=== PATIENT | female | born 1945 | race Caucasian/White ===

== ENCOUNTER → 2017-11-23 11:05 | Outpatient (POV) | payer MEDICARE, BC, SELFPAY | PROVIDERS: Visit Provider Dentist | DX: Z00.00 Encounter for general adult medical examination without abnormal findings (principal) ==

== ENCOUNTER → 2017-12-07 11:57 | Outpatient (POV) | payer MEDICARE, BC, SELFPAY | PROVIDERS: Visit Provider Dentist | DX: Z00.00 Encounter for general adult medical examination without abnormal findings (principal) ==

== ENCOUNTER → 2019-01-10 06:57 | Outpatient (CLI) | payer MEDICARE, BC, SELFPAY ==
--- NOTE | 2019-01-10 07:00 | NM_ITS ---
History and Indications: Coronary artery disease bypass surgery hypertension, hyperlipidemia, family history chest pain and fatigue Procedure: Patient received a 0.4 mg of intravenous Lexiscan, resting heart rate was 62 bpm resting blood pressure 129/65, with Lexiscan maximum heart rate achieved was 83 bpm is less than 85% of the maximum predicted heart rate and a blood pressure was 117/61. With Lexiscan patient complained of malaise no chest pain Electrocardiogram: Resting electrocardiogram showed sinus rhythm possible lateral infarct age indeterminate, with Lexiscan there is less than 1.[address] segment depression noted from the baseline EKG. The EKG portion of the Lexiscan Myoview is nondiagnostic. Cardiac stress and resting SPECT images: Cardiac stress and resting SPECT images were obtained using technetium 99 Myoview 29.8 mCi stress and 10.4 mCi at rest. Gated SPECT further analysis of segmental wall motion and calculation of the ejection fraction also done. Cardiac stress and resting SPECT images show a fixed defect involving the posterobasal wall with area of myocardial scarring without significant homer-infarct ischemia. Computer derived ejection fraction is 56% with severe hypokinesis involving the inferior and posterobasal wall. Right ventricle is normal size and contractility. Conclusion: 1. The EKG portion of the Lexiscan Myoview is nondiagnostic. 2. Scintigraphic evidence of myocardial scarring involving the inferior and posterobasal wall without significant homer-infarct ischemia, computer derived ejection fraction is 56% with segmental wall motion abnormality described above, right ventricle is normal size and contractility. 3. Abnormal Lexiscan Myoview study.
--- NOTE | 2019-01-10 09:55 | HMH.ITSHM ---
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 []oxybutynin plaquenil colchicine cevimeline atorvastatin atenolol alendronate alprazolam
== END ==
PROVIDERS: PCP Internal Medicine Adolescent Medicine; Visit Provider Internal Medicine Adolescent Medicine
DX: I25.119 Atherosclerotic heart disease of native coronary artery with unspecified angina pectoris (principal)
CPT/HCPCS: 78452; 93017; A9502; J2785

== ENCOUNTER → 2019-07-01 10:55 | Outpatient (POV) | payer MEDICARE, BC, SELFPAY | PROVIDERS: PCP Internal Medicine Adolescent Medicine; Visit Provider Nurse Practitioner Family | DX: Z00.00 Encounter for general adult medical examination without abnormal findings (principal) ==

== ENCOUNTER 2020-01-04 15:49 | Inpatient (IN) ==
[2020-01-04 16:17] LABS: Microscopic, Urine URINE MICROSCOPIC (MICROSCOPIC)
[2020-01-04 16:20] LABS: Appearance,Urine CLOUDY (Clear); Blood, Urine 2+ (Negative); Color,Urine DK YELLOW (Yellow); Glucose,Urine (UA) TRACE (Negative); Ketones,Urine TRACE (Negative); Leukocyte Esterase,Urine 2+ (Negative); PH,Urine 5.5 (5.0-8.5); Protein,Urine 2+ (Negative); Specific Gravity, Urine >= 1.030 (1.005-1.030)
--- NOTE | 2020-01-04 16:26 | Emergency Department Note ---
ED Disposition Clinical Impression: Acute dehydration, Elevated LFTs, Hyperbilirubinemia Abdominal pain Qualifiers: Abdominal location: epigastric Qualified Code(s): R10.13 - Epigastric pain Pancreatitis Qualifiers: Chronicity: acute Pancreatitis type: unspecified pancreatitis type Acute pancreatitis complication: no infection or necrosis Qualified Code(s): K85.90 - Acute pancreatitis without necrosis or infection, unspecified Urinary tract infection Qualifiers: Urinary tract infection type: site unspecified Hematuria presence: without hematuria Qualified Code(s): N39.0 - Urinary tract infection, site not specified Disposition: Admitted as Observation Condition on Discharge: Fair Instructions: DI for Acute Abdomen Referrals: José Miguel Verde MD [Primary Care Provider] - Time of Disposition: 18:40 - Critical Care Critical Care Time: No Attestation: On 01/04/20, the high probability of a clinically significant, sudden or life threatening deterioration of the following system(s) required my full and direct attention, intervention and personal management. The time I documented below is in addition to time spent performing reported procedures but includes the following listed in this critical care notation. Medical Decision Making - Earl Inquiry Pt receiving controlled substance: No Vital Signs: 01/04/20 15:50 Temperature 99.5 F Temperature Source Oral Pulse Rate [Right] 82 Respiratory Rate 20 Blood Pressure [Right Arm] 126/78 Blood Pressure Mean [Right Arm] 94 02 Sat by Pulse Oximetry 96 - Lab Data Lab Results 01/04/20 16:00: WBC 16.8 H, RBC 4.71, Hgb 15.1, Hct 45.5, MCV 96.6, MCH 32.1 H, MCHC 33.2, RDW 14.1, Plt Count 157, MPV 8.4, Neut % (Auto) 89.4 H, Lymph % (Auto) 4.9 L, [place] % (Auto) 5.2, Eos % (Auto) 0.3, Baso % (Auto) 0.2, Neut # (Auto) 15.0 H, Lymph # (Auto) 0.8, [place] # (Auto) 0.9, Eos # (Auto) 0.1, Baso # (Auto) 0.0, Total Counted 100, Neutrophils % (Manual) 85 H, Lymphocytes % (Manual) 7 L, Monocytes % (Manual) 4, Metamyelocytes % 4.0 H, Platelet Estimate Normal, RBC Morphology Normal 01/04/20 16:00: Sodium 135 L, Potassium 3.9, Chloride 96 L, Carbon Dioxide 27, Anion Gap 15.9 H, BUN 21 H, Creatinine 1.20 H, Estimated Creat Clear 69, Estimated GFR 44 L, Est GFR ( Amer) 53 L, Glucose 105 H, Calcium 9.2, Total Bilirubin 2.6 H, AST 88 H, ALT 214 H, Alkaline Phosphatase 73, Total Prot ein 7.6, Albumin 4.5, Globulin 3.1, Albumin/Globulin Ratio 1.5, Amylase 237 H, Lipase 254 01/04/20 16:00: Urine Color Dk yellow, Urine Appearance Cloudy, Urine pH 5.5, Ur Specific [place] >= 1.030, Urine Protein 2+, Urine Glucose (UA) Trace, Urine Ke tones Trace, Urine Blood 2+, Urine Nitrate Positive, Urine Bilirubin Negative, Urine Urobilinogen 1.0, Ur Leukocyte Esterase 2+ A, Urine RBC 5-10, Urine WBC Tntc, Ur Squamous Epith Cells 50-100, Amorphous Sediment 2+, Urine Bacteria 3+ 01/04/20 16:00: Lactate 2.1 01/04/20 16:00: Influenza Type A Ag Negative, Influenza Type B Ag Negative 01/04/20 16:00: Troponin I < 0.01 01/04/20 16:00: PT 11.7, INR 1.13 H, APTT 28.7 01/04/20 16:00: NT-Pro-B Natriuret Pep 729 H Result diagrams: 01/04/20 16:00 01/04/20 16:00 Orders (Tests/Meds): ED MEDICATIONS Generic Name Dose Route Start Last Admin Trade Name Freq PRN Reason Stop Dose Admin Sodium Chloride 1,000 mls @ 999 mls/hr 01/04/20 16:15 01/04/20 16:20 Sod Chlor 0.9% 1000ml Bag IV 01/04/20 17:15 999 mls/hr .Q1H1M FANI Administration Levofloxacin/Dextrose 750 mg in 150 mls @ 100 mls/hr 01/04/20 17:30 01/04/20 17:32 Levofloxacin 750mg/150ml Premix IV 01/18/20 17:29 100 mls/hr Q24H FANI Administration Protocol Discontinued Medications Generic Name Dose Route Start Last Admin Trade Name Freq PRN Reason Stop Dose Admin Ioversol 75 ml 01/04/20 17:17 01/04/20 17:18 Rad-Optiray 350 100ml Vial IV 01/04/20 17:18 75 ml ONCE ONE Administration Protocol Ondansetron HCl 4 mg 01/04/20 16:11 01/04/20 16:20 Zofran 4mg/2ml Vial IV 01/04/20 16:12 4 mg ONCE ONE Administration Sodium Chloride 10 ml 01/04/20 17:17 01/04/20 17:18 Rad-Saline Flush 10ml Syringe IV 01/04/20 17:18 10 ml ONCE ONE Administration ORDERS Category Date Time Status Blood Culture Stat Micro 01/04/20 16:00 Received Urine Culture Stat Micro 01/04/20 16:00 Received EKG Request [ECG Request by /Frankie] Stat Y 01/04/20 16:31 Ordered - CT Data CT Scan: Abdomen Time Received: 18:[address] Reviewed: Yes: I have viewed the radiologist's interpretation Findings Narrative: CT ABDOMEN PELVIS W CON Patient Age:74Y CLINICAL INDICATION: abd pain. Upper abdominal pain with nausea and vomiting. No bowel movement 3 days. . Cholecystectomy. CABG. Back and hip surgery. 74-year-old female COMPARISON: CXR1VP XR chest portable from 01/06/2019 TECHNIQUE: 75 cc Optiray 350 IV contrast utilized Axial images obtained with sagittal and coronal reformats. All CT scans at the facility use one or more dose reduction, viz: automated exposure control, ma/kV adjustment per patient size (including targeted exams where dose is matched to indication, i.e. head), or iterative reconstruction technique. FINDINGS: Lower thorax: Lungs clear, no acute appearing findings. Scant pleural thickening posterior aspect posterior sulcus on left more so than right. Prominent multivessel atherosclerotic coronary artery calcification noted. Median sternotomy with CABG ABDOMEN: Gallbladder: Surgically removed. Common duct prominent and moderately dilated measure up to 12 mm at the hilum the liver then tapering to 5-6 mm as it extends through the head of the pancreas. This pattern most likely reflects prior cholecystectomy changes. Also associated mild central intrahepatic biliary ductal dilatation. These findings-warrants correlation serum bilirubin Liver: Otherwise liver reveals no significant appearing masses but... Only note and suspect subtle less than 1.5 cm very subtle slight lower area anterior left lobe most likely reflecting mild focal fatty change left lobe just adjacent to falciform ligament , Pancreas: Hazy appearance peripancreatic fat compatible with acute pancreatitis-requires correlation amylase and lipase. No pancreatic ductal dilatation a focal pancreatic mass or lesion. No focal fluid collections or pseudocyst. No significant complicating features at pancreas at this point. . However would note minimal wispy edematous changes throughout rmesenteric-Most evident at root of mesentery No enlarged nodes: No mesenteric or retroperitoneal nor pelvic nor inguinal adenopathy No free air aorta normal caliber.. Spleen:slightly enlarged. Spleen measures 13.5 cm AP 12.4cm length 7 cm transverse Also note upper normal caliber portal vein with generous splenic vein-warrants correlation with LFTs Adrenals unremarkable the Kidneys/ureters: unremarkable Pelvis: moderate free fluid cul-de-sac and extending to right and left lower pelvis Reproductive: Postmenopausal uterus with 3 cm dense calcified fibroid along its anterior aspect. No adnexal masses otherwise but there is some calcified nodes, generous phleboliths lower pelvis.. Suggestion slight descent floor of pelvis. Difficult to exclude a Bartholin's duct cyst but streak artifact from the hip prosthesis slightly degrades images here and lower pelvis Bladder: Nondistended of thus difficult 2 evaluate. But no calculi at the urinary bladder, no obvious masses nor wall thickening.. GI TRACT no bowel dilatation or obstruction. Large bowel: Upper normal wall thickness at the rectum otherwise no significant findings. Only mild gaseous distension at transverse colon could reflect a localized ileus related to pancreatitis. Mobile redundant cecum. Normal appearing terminal ileum and appendix. Small bowel unremarkable Stomach: Upper normal wall thickness at the stomach question possible mild gastritis overlying the inflamed pancreas Bones: No acute findings but no lesion. degenerative changes lumbar spine. Levoscoliosis but disc space narrowing most notable to the right at L3/4. Also slight leftward shift of L3 on L4 L4/5 with laminectomy and posterior lumbar fusion.. Prominent facet throughout lower L-spine with prominent facet hypertrophy L3/4, L4/5 healing spinal stenosis at now at these levels. Right a hip prosthesis. Acetabular and metallic femoral head component yield streak artifact IMPRESSION: Findings compatible with Acute Pancreatitis Peripancreatic inflammation, with mild enlarged, pancreas. No peripancreatic fluid collections Associated mild edema extending mesentery most evident at root of mesentery. Also moderate free fluid at the pelvic basin Moderate dilatation the Common Duct with mild intrahepatic biliary ductal dilatation.-Most likely secondary tocholecystectomy but warrants correlation with serum bilirubin Mild splenic enlargement . No urinary tract calculi or obstruction Degenerative changes lumbar spine with posterior fusion L4/ L5. And spinal stenosis L3/4-L2/3 Also note right hip prosthesis Dictated by: Ki Malone MD 01/04/2020 18:09 Electronically signed by Ki Malone MD in [place] 01/04/2020 18:09 - ECG Data Tracing #1 EKG shows normal sinus rhythm with a heart rate of 70 bpm, normal P waves, left atrial enlargement, normal MT interval, normal narrow complex QRS pattern, normal axis, T wave inversion in lead II, III, aVF, V2 V3 V4 V5 V6. Nonspecific ST-T changes. - Physician Consults Physician Consulted: Dr. Vergara Time: 18:35 Reason -: Admission Comment/Response: Discussed with Dr. Vergara, regarding the patient and planned to get the patient admitted to the floor for IV fluids and IV antibiotics along with further management as needed. Additional Consult: Discussed with Dr. Vergara, regarding the patient and plan to get the patient - Reevaluation(s) Time: 18:16 Reevaluation #1: Patient has been stable throughout the course of stay in the ER. Discussed the lab findings with the patient. Discussed the CT scan finding with the patient. Plan to discuss the case with the hospitalist for possible admission and further management. Abdominal Pain HPI - General Chief Complaint: Abdominal Pain Stated Complaint: Abd pressure, bloating Time Seen by Provider: 01/04/20 16:23 Mode of Arrival: Ambulatory Limitations: No Limitations Description of Symptoms (Recalled from ER Triage Doc. by RN): Pt states since she has been vomiting and having a burning like feeling in her lower abdomen. Pt states she has been chilling and very weak. - History of Present Illness HPI narrative: 74-year-old female presents to the emergency department with chief complaint of having bilateral upper flank and rib subcostal area pain for the last 2 to 3 days. She states she has not had a bowel movement for last 3 days. She states she has been feeling nauseated for the same duration. She vomited about 2-3 times. He has history of bilious reflux. Has not been eating well for the last 3 days. Denies having any fever or chills. MD complaint: abdominal pain (Epigastric area pain), flank pain (Bilateral) Onset (ago): day(s) (3 days) Consistency: constant Location: epigastric Severity: moderate Severity scale (1-10): 7 Quality: sharp Radiation: none Migration to: no migration Relieving factors: nothing Exacerbating factors: nothing - Related Data Home Medications Medication Instructions Recorded Confirmed ALPRAZolam [Alprazolam 0.25mg 1 tab PO BID 01/06/19 08/30/19 Tab] Alendronate Sodium 1 tab PO WEEKLY 01/06/19 08/30/19 Atorvastatin Calcium [Atorvastatin 1 tab PO HS 01/06/19 08/30/19 10mg Tab] Cevimeline HCl 1 tab PO TID 01/06/19 08/30/19 Colchicine 1 tab PO DAILY 01/06/19 08/30/19 Hydroxychloroquine Sulfate 1 tab PO DAILY 01/06/19 08/30/19 [Plaquenil 200mg tablet] Oxybutynin Chloride [Oxybutynin 1 tab PO DAILY 01/06/19 08/30/19 Chloride ER] atenoloL [Atenolol 50mg Tab] 1 tab PO DAILY 01/06/19 08/30/19 Furosemide [Lasix 40mg tab] 40 mg PO DAILY PRN 08/30/19 08/30/19 Nitroglycerin 0.4 mg SL NEEDED PRN 08/30/19 08/30/19 calcium polycarbophiL [FiberCon 625 mg PO DAILY 08/30/19 08/30/19 625mg tablet] Allergies Allergy/AdvReac Type Severity Reaction Status Date / Time Penicillins Allergy Intermediate Rash Verified 08/30/19 10:35 ibuprofen [From Motrin] Allergy Mild Verified 08/30/19 10:35 [facility] History - Hepatitis A Screen Drug use history?: No High risk sexual behaviors?: No History of sexually transmitted infection?: No Currently employed?: No Childcare worker?: No Do you have indoor plumbing?: Yes Do you have electricity?: Yes Attestation statement:: This patient has been screened for Hepatitis A risk factors. I have reviewed the patient's past medical history: Yes Medical History: Reports:: Anxiety, Coronary Artery Disease, Hyperlipidemia, Hypertension Denies:: Cancer, Diabetes Mellitus Type 1, Diabetes Mellitus Type 2, Internal Pacemaker, Seizures Other Medical History: Reports: Arthritis, Other (gout, colitis, dry mouth syndrome) Laterality Cases: Bilateral: Carpal Tunnel Release, Cataract Other Surgeries: Yes: Cardiac Surgery, Cholecystectomy, Other (hip replacement, three leg surgeries, back surgery, wrist surgery). No: Pacemaker Amputation: No Fractures: Yes - Social History Alcohol Intake: never Substance Use Type: denies use Occupational Status: retired - Psychiatric History Pschychiatric History:: Reports:: Anxiety Family Hx:: No significant family history ROS Obtained: Yes All systems reviewed & no additional complaints Physical Exam - General General appearance: alert, in no apparent distress, obese - Head Head exam: atraumatic, normocephalic, normal inspection - Eye Eye exam: Present: normal appearance, PERRL, EOMI - ENT ENT exam: Present: normal exam, mucous membranes moist, normal external ear exam, other (Dry oral mucosa) - Neck Neck exam: Present: normal inspection, full ROM, trachea midline. Absent: meningismus, lymphadenopathy - Chest Chest inspection: Present: normal inspection, symmetric chest wall rise. Absent: tenderness - Respiratory Respiratory exam: Present: normal lung sounds bilaterally. Absent: respiratory distress - Cardiovascular Cardiovascular exam: Present: regular rate, normal rhythm. Absent: JVD - Abdominal Exam Abdominal exam: Present: soft, tenderness (Tender on palpation of the suprapubic area and mild degree tenderness on the epigastric area. Also complains of mild tenderness on the right upper quadrant.), normal bowel sounds, other (No rigidity or guarding.). Absent: distention, guarding Abdominal tenderness: Present: RUQ, epigastrium, suprapubic, mild - Extremities Exam Extremities exam: Present: normal inspection, full ROM, normal capillary refill. Absent: calf tenderness - Back Exam Back exam: Present: normal inspection, full ROM. Absent: tenderness, CVA tenderness (R), CVA tenderness (L) - Neurological Exam Neurological exam: Present: alert, oriented X3, CN II-XII intact - Psychiatric Psychiatric exam: Present: normal affect, normal mood - Skin Skin exam: Present: warm, dry, intact, normal color
[2020-01-04 16:30] LABS: Bilirubin,Urine Negative (Negative)
[2020-01-04 16:33] LABS: Albumin Level 4.5 g/dl (3.5-5.0); Albumin/Globulin Ratio 1.5 (1.1-1.8); Anion Gap 15.9 mEq/L (5-15); Basophils % 0.2 % (0.1-2.0); Bilirubin,Total 2.6 mg/dl (0.2-1.3); Calcium 9.2 mg/dl (8.4-10.2); Eosinophils # 0.1 K/mm3 (0.0-0.4); Eosinophils % 0.3 % (0.1-12.0); Globulin 3.1 g/dL (1.3-3.2); Hematocrit 45.5 % (37.0-47.0); Hemoglobin 15.1 g/dL (12.2-16.2); Lymphocytes # 0.8 K/mm3 (0.7-4.5); Lymphocytes % 4.9 % (10-50); Mean Corpuscular HGB Conc 33.2 g/dL (31.8-35.4); Mean Corpuscular Volume 96.6 fl (81-99); Mean Platelet Volume 8.4 fl (7.4-10.4); Monocytes # 0.9 K/mm3 (0.1-1.0); Monocytes % 5.2 % (1.7-9.3); Neutrophils % 89.4 % (37.0-80.0); Platelet Count 157 K/mm3 (142-424); Red Blood Count 4.71 M/mm3 (4.20-5.40); Red Cell Distribution Width 14.1 % (11.5-17.5); Total Protein,Serum 7.6 g/dl (6.3-8.2); White Blood Count 16.8 K/mm3 (4.8-10.8)
[2020-01-04 16:36] LABS: Amorphous Sediment,Urine 2+ /lpf; Bacteria,Urine 3+ /lpf; Squamous Epithelial Cell,Urine 50-100 #/hpf (0-5); WBC,Urine TNTC #/hpf (0-3)
[2020-01-04 16:43] LABS: Lymphocytes % 7 % (10-50); Monocytes % 4 % (2-9); Neutrophils % 85 % (42-76); RBC Morphology Normal; Total Cells Counted 100
[2020-01-04 17:21] LABS: Activated Partial Thrombo Time 28.7 seconds (23.6-34.0); INR 1.13 (0.9-1.1); Prothrombin Time 11.7 seconds (9.4-11.8)
[2020-01-05 07:22] LABS: Basophils % 0.1 % (0.1-2.0); Eosinophils # 0.1 K/mm3 (0.0-0.4); Eosinophils % 0.5 % (0.1-12.0); Hematocrit 36.3 % (37.0-47.0); Lymphocytes # 0.5 K/mm3 (0.7-4.5); Lymphocytes % 4.6 % (10-50); Mean Corpuscular HGB Conc 33.8 g/dL (31.8-35.4); Mean Corpuscular Volume 95.1 fl (81-99); Mean Platelet Volume 9.5 fl (7.4-10.4); Monocytes # 0.5 K/mm3 (0.1-1.0); Monocytes % 4.6 % (1.7-9.3); Neutrophils # 9.1 K/mm3 (1.8-7.8); Neutrophils % 90.2 % (37.0-80.0); Platelet Count 94 K/mm3 (142-424); Red Blood Count 3.82 M/mm3 (4.20-5.40); Red Cell Distribution Width 13.7 % (11.5-17.5); White Blood Count 10.1 K/mm3 (4.8-10.8)
[2020-01-05 07:24] LABS: Hemoglobin 12.3 g/dL (12.2-16.2)
[2020-01-05 07:52] LABS: Anion Gap 9.6 mEq/L (5-15)
[2020-01-05 08:06] LABS: Lymphocytes % 7 % (10-50); Monocytes % 4 % (2-9); Neutrophils % 85 % (42-76); RBC Morphology Normal; Total Cells Counted 100
[2020-01-05 08:22] LABS: Albumin Level 3.3 g/dl (3.5-5.0); Bilirubin,Indirect 1.3 mg/dL (0.0-0.9); Bilirubin,Total 1.3 mg/dl (0.2-1.3); Bilirubin,Unconjugated 1.4 mg/dL (0.0-1.1); Total Protein,Serum 5.8 g/dl (6.3-8.2)
--- NOTE | 2020-01-05 08:26 | Pharmacy Consult Notes ---
[facility] VTE Monitoring - Patient Demographics Admission date: 01/04/20 Report Date: 01/05/20 Time: 08:25 Allergies/Adverse Reactions: Patient Allergies Penicillins Allergy (Intermediate, Verified 08/30/19 10:35) Rash ibuprofen [From Motrin] Allergy (Mild, Verified 08/30/19 10:35) Height: 1.63 m Weight: 98.089 kg Patient Problems: Current Active Problems Abdominal pain (Acute) Pancreatitis (Acute) Acute dehydration (Acute) Elevated LFTs (Acute) Hyperbilirubinemia (Acute) Urinary tract infection (Acute) - VTE Risk Labs: VTE Related Lab Results Hgb 12.3 g/dL (12.2-16.2) D 01/05/20 07:02 Hct 36.3 % (37.0-47.0) L 01/05/20 07:02 Plt Count 94 K/mm3 (142-424) L D 01/05/20 07:02 PT 11.7 seconds (9.4-11.8) 01/04/20 16:00 INR 1.13 (0.9-1.1) H 01/04/20 16:00 APTT 28.7 seconds (23.6-34.0) 01/04/20 16:00 BUN 14 mg/dl (7-17) D 01/05/20 07:02 Creatinine 1.00 mg/dl (0.52-1.04) 01/05/20 07:02 Estimated Creat Clear 78 mL/min (50-200) 01/05/20 07:02 VTE Risk Level: Moderate Risk - Prophylaxis VTE Prophylaxis Ordered?: Yes Types of VTE Prophylaxis: TEDS Knee High Location of Applied Device: Bilateral Lower Extremeties - VTE Diagnosis Confirmed Treatment or plan recommended: Continue Current Treatment
--- NOTE | 2020-01-05 08:51 | History & Physical Report ---
*Admission Date: 01/04/20 *Chief complaint: abd pain and nausea *History of present illness: 74-year-old white female with history of cholecystectomy in the remote past, bile acid reflux gastritis and GERD who presented to the emergency department with a 2-day history of nausea and vomiting that started without any kind of inciting food intake. She became nauseated a couple of days ago and abdominal pain has insidiously worsened until she presented to the ER yesterday evening. Found to have elevated white count, elevated bilirubin, elevated amylase and lipase, CT scan showed evidence of pancreatitis and she was admitted to the hospital for further diagnostic testing as well as IV antibiotics. [facility] History I have reviewed the patient's past medical history: Yes Medical History: Reports:: Anxiety, Coronary Artery Disease, Hyperlipidemia, Hypertension Denies:: Cancer, Diabetes Mellitus Type 1, Diabetes Mellitus Type 2, Internal Pacemaker, MRSA, Seizures *Have you ever received a pneumonia vaccine?: Yes *Have you received a flu vaccine this season?: No Other Medical History: Reports: Anemia, Arthritis, Other (gout, colitis, dry mouth syndrome) Comment:: Recurrent colitis, bile acid reflux gastritis Laterality Cases: Right: Total Hip Replacement, Bilateral: Carpal Tunnel Release, Cataract Other Surgeries: Yes: Cardiac Catheterization, Cardiac Surgery, Cholecystectomy, Other (back, leg). No: Pacemaker Amputation: No Fractures: Yes - *Social History Smoking Status: Never smoker Alcohol Intake: never Substance Use Type: denies use *Occupational Status:: retired *Travel in the last 8 weeks: None - Psychiatric History Pschychiatric History:: Reports:: Anxiety Family Hx:: Anemia, Cancer, Coronary Artery Disease, Diabetes, Heart Attack, Hyperlipidemia, Hypertension, Tuberculosis Review of Systems - Review of Systems Review of systems:: pertinent systems reviewed and negative unless documented below Patient denies cardiac or pulmonary or skin symptoms. Denies diarrhea, other than upper GI symptoms above 10 point review of systems negative Meds Home Medications Medication Instructions Recorded Confirmed Type ALPRAZolam [Alprazolam 0.25mg 1 tab PO BID 01/06/19 01/04/20 History Tab] Alendronate Sodium 1 tab PO WEEKLY 01/06/19 01/04/20 History Atorvastatin Calcium [Atorvastatin 1 tab PO HS 01/06/19 01/04/20 History 10mg Tab] Cevimeline HCl 1 tab PO TID 01/06/19 01/04/20 History Colchicine 1 tab PO DAILY 01/06/19 01/04/20 History Hydroxychloroquine Sulfate 1 tab PO DAILY 01/06/19 01/04/20 History [Plaquenil 200mg tablet] Oxybutynin Chloride [Oxybutynin 1 tab PO DAILY 01/06/19 01/04/20 History Chloride ER] Nitroglycerin 0.4 mg SL NEEDED PRN 08/30/19 01/04/20 History calcium polycarbophiL [FiberCon 625 mg PO DAILY 08/30/19 01/04/20 History 625mg tablet] Aspirin [Aspir 81] 81 mg PO DAILY 01/04/20 01/04/20 History Colestipol HCl 1 tab PO BID 01/04/20 01/04/20 History Famotidine [Acid Automated Process Operator] 20 mg PO HS 01/04/20 01/04/20 History Furosemide [Lasix 20mg tab] 20 mg PO DAILY 01/04/20 01/04/20 History Lipase/Protease/Amylase [Creon Dr 1 each PO AC 01/04/20 01/04/20 History 36,000 Units Capsule] Tizanidine HCl 4 mg PO NEEDED PRN 01/04/20 01/04/20 History atenoloL [Atenolol 50mg Tab] 50 mg PO DAILY 01/04/20 01/04/20 History cycloSPORINE [Restasis] 1 each OP DAILY 01/04/20 01/04/20 History Allergies Allergy/AdvReac Type Severity Reaction Status Date / Time Penicillins Allergy Intermediate Rash Verified 08/30/19 10:35 ibuprofen [From Motrin] Allergy Mild Verified 08/30/19 10:35 Exam Vital signs and Labs for Last 24 Hours: Temp Pulse Resp BP Pulse Ox 98.7 F 78 16 109/47 L 94 L 01/05/20 07:37 01/05/20 07:37 01/05/20 07:37 01/05/20 07:37 01/05/20 08:00 Laboratory Results - last 24 hr 01/04/20 16:00: WBC 16.8 H, RBC 4.71, Hgb 15.1, Hct 45.5, MCV 96.6, MCH 32.1 H, MCHC 33.2, RDW 14.1, Plt Count 157, MPV 8.4, Neut % (Auto) 89.4 H, Lymph % (Auto) 4.9 L, [place] % (Auto) 5.2, Eos % (Auto) 0.3, Baso % (Auto) 0.2, Neut # (Auto) 15.0 H, Lymph # (Auto) 0.8, [place] # (Auto) 0.9, Eos # (Auto) 0.1, Baso # (Auto) 0.0, Total Counted 100, Neutrophils % (Manual) 85 H, Lymphocytes % (Manual) 7 L, Monocytes % (Manual) 4, Metamyelocytes % 4.0 H, Platelet Estimate Normal, RBC Morphology Normal 01/04/20 16:00: Sodium 135 L, Potassium 3.9, Chloride 96 L, Carbon Dioxide 27, Anion Gap 15.9 H, BUN 21 H, Creatinine 1.20 H, Estimated Creat Clear 69, Estimated GFR 44 L, Est GFR ( Amer) 53 L, Glucose 105 H, Calcium 9.2, Total Bilirubin 2.6 H, AST 88 H, ALT 214 H, Alkaline Phosphatase 73, Total Protein 7.6, Albumin 4.5, Globulin 3.1, Albumin/Globulin Ratio 1.5, Amylase 237 H, Lipase 254 01/04/20 16:00: Urine Color Dk yellow, Urine Appearance Cloudy, Urine pH 5.5, Ur Specific [place] >= 1.030, Urine Protein 2+, Urine Glucose (UA) Trace, Urine Ketones Trace, Urine Blood 2+, Urine Nitrate Positive, Urine Bilirubin Negative, Urine Urobilinogen 1.0, Ur Leukocyte Esterase 2+ A, Urine RBC 5-10, Urine WBC Tntc, Ur Squamous Epith Cells 50-100, Amorphous Sediment 2+, Urine Bacteria 3+ 01/04/20 16:00: Lactate 2.1 01/04/20 16:00: Influenza Type A Ag Negative, Influenza Type B Ag Negative 01/04/20 16:00: Troponin I < 0.01 01/04/20 16:00: PT 11.7, INR 1.13 H, APTT 28.7 01/04/20 16:00: NT-Pro-B Natriuret Pep 729 H 01/04/20 20:35: Lactate 1.5 01/04/20 21:11: POC Glucose 103 01/05/20 05:50: POC Glucose 110 01/05/20 07:02: WBC 10.1 D, RBC 3.82 L, Hgb 12.3 D, Hct 36.3 L, MCV 95.1, MCH 32.1 H, MCHC 33.8, RDW 13.7, Plt Count 94 L D, MPV 9.5, Neut % (Auto) 90.2 H, Lymph % (Auto) 4.6 L, [place] % (Auto) 4.6, Eos % (Auto) 0.5, Baso % (Auto) 0.1, Neut # (Auto) 9.1 H, Lymph # (Auto) 0.5 L, [place] # (Auto) 0.5, Eos # (Auto) 0.1, Baso # (Auto) 0.0, Total Counted 100, Neutrophils % (Manual) 85 H, Band Neutrophils % 1.0, Lymphocytes % (Manual) 7 L, Monocytes % (Manual) 4, Metamyelocytes % 3.0 H, Platelet Estimate Moderate decrease, RBC Morphology Normal 01/05/20 07:02: Sodium 135 L, Potassium 3.6, Chloride 101, Carbon Dioxide 28, Anion Gap 9.6, BUN 14 D, Creatinine 1.00, Estimated Creat Clear 78, Estimated GFR 54 L, Est GFR ( Amer) 66 D, Glucose 123 H, Calcium 8.0 L D 01/05/20 07:02: Total Bilirubin 1.3, Direct Bilirubin 0.0, Conjugated Bilirubin 0.0, Indirect Bilirubin 1.3 H, Unconjugated Bilirubin 1.4 H, AST 51 H D, ALT 119 H D, Alkaline Phosphatase 54, Total Protein 5.8 L, Albumin 3.3 L D I & O for Last 24 hours: Intake & Output 01/02/20 01/03/20 01/04/20 01/05/20 11:59 11:59 11:59 11:59 Intake Total 987 / 987 Output Total 900 / 900 Balance 87 / 87 Weight 216 lb 3.987 oz Microbiology Reports for the Last 24 Hours: Microbiology 01/04/20 16:00 Urine,Clean Catch Urine Culture - Preliminary Gram Negative Rods - *Routine HEENT Exam Head: Present: normocephalic Eye: Present: EOMI, PERRL ENT: Present: mucous membranes moist - *Routine Neck Exam Present: supple. Absent: lymphadenopathy - *Routine Respiratory Exam Present: CTA bilaterally - *Routine Cardiovascular Exam Present: RRR - *Routine Abdominal Exam Present: soft, normoactive bowel sounds, tenderness. Absent: guarding, Hernandez Hurtado's sign, Michael's sign - *Routine Extremities Exam Absent: cyanosis, clubbing, edema - *Routine Skin Exam Present: warm. Absent: rash - *Routine Neurological Exam Present: alert, oriented X3 - Detailed Eye Exam Eyelids: Left normal inspection Assessment and Plan (1) Elevated LFTs Current visit: Yes Status: Acute Category: Medical Code(s): R94.5 - Abnormal results of liver function studies (2) Hyperbilirubinemia Current visit: Yes Status: Acute Category: Medical Code(s): E80.6 - Other disorders of bilirubin metabolism (3) Pancreatitis Current visit: Yes Status: Acute Qualifiers: Chronicity: acute Pancreatitis type: unspecified pancreatitis type Acute pancreatitis complication: no infection or necrosis Qualified Code(s): K85.90 - Acute pancreatitis without necrosis or infection, unspecified Category: Medical Code(s): K85.90 - Acute pancreatitis without necrosis or infection, unspecified (4) Urinary tract infection Current visit: Yes Status: Acute Qualifiers: Urinary tract infection type: site unspecified Hematuria presence: without hematuria Qualified Code(s): N39.0 - Urinary tract infection, site not specified Category: Medical Code(s): N39.0 - Urinary tract infection, site not specified - Assessment and plan all Dx Assessment and Plan for all problems:: Agree with admissions for above-noted medical problems. White count is improved overnight and bilirubin has improved. If these would worsen would consider broadening antibiotic coverage for cholangitis coverage but her penicillin allergy makes this somewhat problematic. Clear liquids today. GI consultation tomorrow with ultrasonography. Patient does not drink alcohol and etiology of pancreatitis is somewhat vague, check lipid levels for triglycerides and consider drug-induced pancreatitis.
--- NOTE | 2020-01-05 09:07 | Electrocardiograph Report ---
APPROVED REPORT Exam: Resting ECG HR:70 bpm ECG Measurements Heart Rate 70 AXES OK 144 P 44 QRSd 92 QRS 51 QT 386 T66 QTc 416 <Conclusion> Normal sinus rhythm Possible Left atrial enlargement Inferior-posterior infarct, age undetermined ST & T wave abnormality, consider lateral ischemia Abnormal ECG Electronically signed by : José Miguel Verde, 01/05/2020 09:06:25
[2020-01-05 09:16] LABS: Chol/HDL Ratio 2.4 (1-3.5)
[2020-01-06 07:26] LABS: Basophils % 0.2 % (0.1-2.0); Eosinophils # 0.1 K/mm3 (0.0-0.4); Eosinophils % 1.2 % (0.1-12.0); Hematocrit 34.2 % (37.0-47.0); Hemoglobin 11.5 g/dL (12.2-16.2); Lymphocytes # 0.4 K/mm3 (0.7-4.5); Lymphocytes % 4.8 % (10-50); Mean Corpuscular HGB Conc 33.6 g/dL (31.8-35.4); Mean Corpuscular Volume 96.4 fl (81-99); Mean Platelet Volume 9.1 fl (7.4-10.4); Monocytes # 0.5 K/mm3 (0.1-1.0); Monocytes % 5.5 % (1.7-9.3); Neutrophils # 7.6 K/mm3 (1.8-7.8); Neutrophils % 88.3 % (37.0-80.0); Platelet Count 101 K/mm3 (142-424); Red Blood Count 3.55 M/mm3 (4.20-5.40); Red Cell Distribution Width 13.7 % (11.5-17.5); White Blood Count 8.6 K/mm3 (4.8-10.8)
[2020-01-06 07:34] LABS: Albumin/Globulin Ratio 1.2 (1.1-1.8); Anion Gap 9.4 mEq/L (5-15); Calcium 7.7 mg/dl (8.4-10.2); Globulin 2.5 g/dL (1.3-3.2); Total Protein,Serum 5.5 g/dl (6.3-8.2)
--- NOTE | 2020-01-06 08:39 | Progress Note ---
Internal Medicine - PN: Subj *Date: 01/06/20 *Time: 08:37 Interval history: Patient reports that she feels somewhat better, had some left upper quadrant and left flank pain through the night but slept well. Exam Vital signs and Labs for Last 24 Hours: Temp Pulse Resp BP Pulse Ox 98.0 F 64 16 115/52 L 97 01/06/20 04:00 01/06/20 04:00 01/06/20 04:00 01/06/20 04:00 01/06/20 04:00 Laboratory Results - last 24 hr 01/05/20 07:02: Triglycerides 73, Cholesterol 100 L, LDL Cholesterol Direct 48.90 L, VLDL Cholesterol 15, HDL Cholesterol 41, Cholesterol/HDL Ratio 2.4 01/05/20 10:51: POC Glucose 136 H 01/05/20 16:27: POC Glucose 132 H 01/05/20 20:14: POC Glucose 117 H 01/06/20 06:18: POC Glucose 131 H 01/06/20 07:08: WBC 8.6, RBC 3.55 L, Hgb 11.5 L, Hct 34.2 L, MCV 96.4, MCH 32.4 H, MCHC 33.6, RDW 13.7, Plt Count 101 L, MPV 9.1, Neut % (Auto) 88.3 H, Lymph % (Auto) 4.8 L, [place] % (Auto) 5.5, Eos % (Auto) 1.2, Baso % (Auto) 0.2, Neut # (Auto) 7.6, Lymph # (Auto) 0.4 L, [place] # (Auto) 0.5, Eos # (Auto) 0.1, Baso # (Auto) 0.0 01/06/20 07:08: Sodium 134 L, Potassium 3.4 L, Chloride 102, Carbon Dioxide 26, Anion Gap 9.4, BUN 9 D, Creatinine 0.90, Estimated Creat Clear 78, Estimated GFR 61, Est GFR ( Amer) 74, Glucose 125 H, Calcium 7.7 L, Total Bilirubin 1.0, AST 33 D, ALT 76 D, Alkaline Phosphatase 50, Total Protein 5.5 L, Albumin 3.0 L, Globulin 2.5, Albumin/Globulin Ratio 1.2 I & O for Last 24 hours: Intake & Output 0201/04/20 01/05/20 01/06/20 11:59 11:59 11:59 11:59 Intake Total 987 / 987 4648 / 4648 Output Total 900 / 900 550 / 550 Balance / 4098 / 4098 Weight 216 lb 3.987 oz 216 lb 4.023 oz Microbiology Reports for the Last 24 Hours: Microbiology 01/04/20 16:00 Urine,Clean Catch Urine Culture - Final Klebsiella pneumoniae Narrative: Patient is pleasant, talkative, appears somewhat weak. Oropharynx clear. No JVD. Lungs are clear, heart rate regular without murmurs. Abdomen soft, some tenderness in the left upper quadrant but no rebound or guarding, no periumbilical or flank bruising. No distal edema or clubbing. Neurologic exam is nonfocal. Assessment and Plan (1) Elevated LFTs Current visit: Yes Status: Acute Category: Medical Code(s): R94.5 - Abnormal results of liver function studies (2) Hyperbilirubinemia Current visit: Yes Status: Acute Category: Medical Code(s): E80.6 - Other disorders of bilirubin metabolism (3) Pancreatitis Current visit: Yes Status: Acute Qualifiers: Chronicity: acute Pancreatitis type: unspecified pancreatitis type Acute pancreatitis complication: no infection or necrosis Qualified Code(s): K85.90 - Acute pancreatitis without necrosis or infection, unspecified Category: Medical Code(s): K85.90 - Acute pancreatitis without necrosis or infection, unspecified (4) Urinary tract infection Current visit: Yes Status: Acute Qualifiers: Urinary tract infection type: site unspecified Hematuria presence: without hematuria Qualified Code(s): N39.0 - Urinary tract infection, site not specified Category: Medical Code(s): N39.0 - Urinary tract infection, site not specified UTI secondary to Klebsiella, levofloxacin is appropriate treatment. This will continue. - Assessment and plan all Dx Assessment and Plan for all problems:: Patient appears to be improving from her pancreatitis episode. Please see notes and H&P regarding this issue. Lipid profile was unremarkable. Dr. Perez consultation today. Advance diet if tolerated after consultation.
[2020-01-06 10:14] LABS: Lymphocytes % 3 % (10-50); Monocytes % 5 % (2-9); Neutrophils % 92 % (42-76); RBC Morphology Normal; Total Cells Counted 100
--- NOTE | 2020-01-06 15:44 | Procedure Note ---
[facility] Procedure Note Procedure Note:: ERCP procedure Report: Endoscopic retrograde cholangiopancreatography with biliary sphincterotomy and balloon extraction Endoscopist: Mario Perez II, MD Referring Physician: José Miguel Verde M.D. Date of Procedure: January 06, 2020 Equipment: Olympus 180 side viewing endoscope duodenoscope Sedation: MAC sedation Indication: Mrs. Hector is a 74-year-old female who was having some noncardiac chest pain that radiated into the shoulder blades last fall and she was admitted to [facility]. She had cardiac testing. The patient had an EGD with me on August 30, 2019. At that time she had moderate chronic atrophic gastritis as well as some esophageal dysmotility. She had bile reflux with some reactive gastropathy of the antrum. The patient had been seen for follow-up in November 2019 in my office. She was still having some esophageal chest pain but overall she was much improved. The patient did have an ERCP in September 2006 for sphincter of Oddi dysfunction. She has had prior cholecystectomy more than a decade ago. The patient presented with nausea, vomiting and abdominal pain. Her lab work showed elevated liver and pancreatic chemistries with an ALT level of 214 and a total bilirubin level of 2.6. The patient's amylase was 237 with a normal lipase of 254. The patient did undergo CT scan of the abdomen and pelvis and this did show findings compatible with acute pancreatitis. There was also moderate dilation of the common bile duct with mild intrahepatic biliary ductal dilation. Procedure: Prior to the procedure, a history and physical exam was performed, and patient's medications and allergies were reviewed. The risks, benefits and alternatives of the sedation and procedure were discussed with the patient. All questions were answered and informed consent was obtained. The patient was brought to the fluoroscopic radiology room. Patient identification and proposed procedure were verified by the physician and the nurse. The patient was placed in a swimmer's position between left lateral decubitus and prone position and the scope was passed under direct vision. Throughout the procedure, the patient's blood pressure, pulse, and oxygen saturations were monitored continuously. The ERCP was accomplished without difficulty. The patient tolerated the procedure well. Findings: The side-viewing scope was passed directly into the upper esophagus and advanced to the second portion of the duodenum. There was nonerosive GERD with mild esophageal dysmotility. There was marked bile reflux with linear reactive gastropathy and chronic atrophic gastritis. The duodenum was normal. The ampulla was well visualized. Both the pancreatic duct and common bile duct were cannulated with a guidewire. A pancreatogram was not performed intentionally. The cholangiogram did show an 8 to 9 mm common bile duct with normal filling of the intrahepatic biliary system. There was delayed drainage of contrast and bile from the ampulla which was tight but there was no discrete stricture within the biliary system on the cholangiogram. There was some hazy filling defect distally. A biliary sphincterotomy was performed maximally. Next, a 9 to 12 mm sweeping balloon was placed at the hilum and inflated to 9 mm and swept through the biliary system. There was excellent decompression with the passage of a small yellow 2 to 3 mm stone and some sludge. A second balloon sweep from the hilum yielded no further debris. Impression: 1. 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 She should have clinical improvement with biliary clearance and decompression. This could be some of the etiology of her prior chest pain. I will have her follow-up in the office in the next couple of weeks to re-assess for clinical improvement.
--- NOTE | 2020-01-06 15:53 | Progress Note ---
[facility] Anesthesia Checklist - Patient Identification Patient Identification: Arm Band - Structural Data Admitted From: Inpatient Planned Operative Procedure/s: ercp Consent for Planned Operative Procedure(s) Verified: Yes Verified Documents: Surgical Consent, History and Physical - NPO Status Verified Time NPO: 00:00 - Additional verifications Anesthesia Reactions: No - Airway Assessment C-Spine Mobility Assessed: Yes (mp2) TMJ Mobility Assessed: Yes Dentition: Poor Dentition - Neurological Assessment Level of Consciousness: Awake, Alert - Anesthesia Plan Anesthesia Risk discussed: Yes Anesthesia Plan: Verified ASA Class: III Anesthesia Type: MAC [facility] History I have reviewed the patient's past medical history: Yes Medical History: Reports:: Anxiety, Coronary Artery Disease, Gastroesophageal Reflux Disease(GERD), Hyperlipidemia, Hypertension Denies:: Cancer, Diabetes Mellitus Type 1, Diabetes Mellitus Type 2, Internal Pacemaker, MRSA, Seizures *Have you ever received a pneumonia vaccine?: Yes *Have you received a flu vaccine this season?: No Other Medical History: Reports: Anemia, Arthritis, Other (gout, colitis, dry mouth syndrome) Anesthesia experience/problems:: nac Laterality Cases: Right: Total Hip Replacement, Bilateral: Carpal Tunnel Release, Cataract Other Surgeries: Yes: Cardiac Catheterization, Cardiac Surgery, Cholecystectomy, Other (back, leg). No: Pacemaker Amputation: No Fractures: Yes - *Social History Smoking Status: Never smoker Alcohol Intake: never Substance Use Type: denies use *Occupational Status:: retired *Travel in the last 8 weeks: None - Psychiatric History Pschychiatric History:: Reports:: Anxiety Family Hx:: Anemia, Cancer, Coronary Artery Disease, Diabetes, Heart Attack, Hyperlipidemia, Hypertension, Tuberculosis
[2020-01-07 07:11] LABS: Eosinophils # 0.2 K/mm3 (0.0-0.4); Eosinophils % 2.6 % (0.1-12.0); Hematocrit 34.9 % (37.0-47.0); Hemoglobin 11.8 g/dL (12.2-16.2); Lymphocytes # 0.5 K/mm3 (0.7-4.5); Lymphocytes % 5.4 % (10-50); Mean Corpuscular HGB Conc 33.7 g/dL (31.8-35.4); Mean Corpuscular Volume 95.5 fl (81-99); Mean Platelet Volume 8.7 fl (7.4-10.4); Monocytes # 0.4 K/mm3 (0.1-1.0); Monocytes % 4.9 % (1.7-9.3); Neutrophils # 7.7 K/mm3 (1.8-7.8); Platelet Count 112 K/mm3 (142-424); Red Blood Count 3.65 M/mm3 (4.20-5.40); Red Cell Distribution Width 13.7 % (11.5-17.5); White Blood Count 8.9 K/mm3 (4.8-10.8)
[2020-01-07 07:17] LABS: Albumin Level 3.2 g/dl (3.5-5.0); Albumin/Globulin Ratio 1.2 (1.1-1.8); Anion Gap 9.9 mEq/L (5-15); Calcium 8.2 mg/dl (8.4-10.2); Globulin 2.7 g/dL (1.3-3.2); Total Protein,Serum 5.9 g/dl (6.3-8.2)
[2020-01-07 07:35] LABS: Lymphocytes % 4 % (10-50); Monocytes % 8 % (2-9); Neutrophils % 85 % (42-76); RBC Morphology Normal; Total Cells Counted 100
--- NOTE | 2020-01-07 09:01 | Progress Note ---
Internal Medicine - PN: Subj *Date: 01/07/20 *Time: 08:30 Interval history: Patient did well overnight. Remains afebrile. No nausea, vomiting, diarrhea. Still has some mild abdominal pain but better. Improved since ERCP yesterday. No shortness of breath, stable on room air. Reviewed labs this morning, significant for hypokalemia but otherwise normal liver enzymes. Tolerating water and ice chips. Interested in advancing diet today. Exam Vital signs and Labs for Last 24 Hours: Temp Pulse Resp BP Pulse Ox 98.2 F 76 16 126/65 98 01/07/20 07:59 01/07/20 07:59 01/07/20 07:59 01/07/20 07:59 01/07/20 07:59 Laboratory Results - last 24 hr 01/06/20 07:08: Total Counted 100, Neutrophils % (Manual) 92 H, Lymphocytes % (Manual) 3 L, Monocytes % (Manual) 5, Platelet Estimate Slight increase, RBC Morphology Normal 01/06/20 11:19: POC Glucose 92 01/06/20 16:35: POC Glucose 97 01/06/20 20:49: POC Glucose 125 H 01/07/20 05:14: POC Glucose 115 H 01/07/20 06:58: WBC 8.9, RBC 3.65 L, Hgb 11.8 L, Hct 34.9 L, MCV 95.5, MCH 32.2 H, MCHC 33.7, RDW 13.7, Plt Count 112 L, MPV 8.7, Neut % (Auto) 87.0 H, Lymph % (Auto) 5.4 L, [place] % (Auto) 4.9, Eos % (Auto) 2.6, Baso % (Auto) 0.0 L, Neut # (Auto) 7.7, Lymph # (Auto) 0.5 L, [place] # (Auto) 0.4, Eos # (Auto) 0.2, Baso # (Auto) 0.0, Total Counted 100, Neutrophils % (Manual) 85 H, Band Neutrophils % 2.0, Lymphocytes % (Manual) 4 L, Monocytes % (Manual) 8, Metamyelocytes % 1.0, Platelet Estimate Slight decrease, RBC Morphology Normal 01/07/20 06:58: Sodium 136, Potassium 2.9 L*, Chloride 104, Carbon Dioxide 25, Anion Gap 9.9, BUN 11, Creatinine 0.90, Estimated Creat Clear 80, Estimated GFR 61, Est GFR ( Amer) 74, Glucose 101 H, Calcium 8.2 L, Total Bilirubin 1.0, AST 30, ALT 62, Alkaline Phosphatase 60, Total Protein 5.9 L, Albumin 3.2 L , Globulin 2.7, Albumin/Globulin Ratio 1.2 I & O for Last 24 hours: Intake & Output 01/04/20 01/05/20 01/06/20 01/07/20 23:59 23:59 23:59 23:59 Intake Total 2727 / 2727 3715 / 3715 1084 / 1084 Output Total 1200 / 1450 400 / 400 Balance 1527 / 1277 3315 / 3315 1084 / 1084 Weight 98.089 kg 98.089 kg 98 kg 101.5 kg Microbiology Reports for the Last 24 Hours: Microbiology 01/04/20 16:00 Blood Blood Culture - Preliminary NO GROWTH AFTER 48 HOURS 01/04/20 16:00 Blood Blood Culture - Preliminary NO GROWTH AFTER 48 HOURS 01/04/20 16:00 Urine,Clean Catch Urine Culture - Final Klebsiella pneumoniae Narrative: Patient is pleasant, talkative, obese. NAD on RA Oropharynx clear. No JVD. Lungs are clear, no wheeze or rhonchi heart rate regular without murmurs. Abdomen soft, minimal TTP in LUQ. no rebound or guarding, no periumbilical or flank bruising. No distal edema or clubbing. Neurologic exam is nonfocal. Assessment and Plan (1) Elevated LFTs Current visit: Yes Status: Acute Category: Medical Code(s): R94.5 - Abnormal results of liver function studies (2) Hyperbilirubinemia Current visit: Yes Status: Acute Category: Medical Code(s): E80.6 - Other disorders of bilirubin metabolism (3) Pancreatitis Current visit: Yes Status: Acute Qualifiers: Chronicity: acute Pancreatitis type: unspecified pancreatitis type Acute pancreatitis complication: no infection or necrosis Qualified Code(s): K85.90 - Acute pancreatitis without necrosis or infection, unspecified Category: Medical Code(s): K85.90 - Acute pancreatitis without necrosis or infection, unspecified (4) Urinary tract infection Current visit: Yes Status: Acute Qualifiers: Urinary tract infection type: site unspecified Hematuria presence: without hematuria Qualified Code(s): N39.0 - Urinary tract infection, site not specified Category: Medical Code(s): N39.0 - Urinary tract infection, site not specified (5) Class 2 obesity Current visit: Yes Status: Chronic Category: Medical Code(s): E66.9 - O besity, unspecified complicates all aspects of her care. - Assessment and plan all Dx Assessment and Plan for all problems:: Admitted with mild pancreatitis found to have retained common bile duct stone. Status post ERCP with sphincterotomy. Doing better this morning clinically. Will advance diet slowly today. If able to gradually increase to mechanical soft by morning, will be ready for discharge home. Has been switched to oral antibiotics for UTI. Plan to continue empiric 7-day course. Continues to require inpatient management, clinically improved, prognosis good
[2020-01-08 07:09] LABS: Basophils % 0.1 % (0.1-2.0); Eosinophils # 0.2 K/mm3 (0.0-0.4); Hematocrit 33.7 % (37.0-47.0); Hemoglobin 11.1 g/dL (12.2-16.2); Lymphocytes # 0.5 K/mm3 (0.7-4.5); Lymphocytes % 5.2 % (10-50); Mean Corpuscular HGB Conc 33.1 g/dL (31.8-35.4); Mean Corpuscular Volume 98.3 fl (81-99); Mean Platelet Volume 8.7 fl (7.4-10.4); Monocytes # 0.4 K/mm3 (0.1-1.0); Monocytes % 4.8 % (1.7-9.3); Neutrophils # 7.7 K/mm3 (1.8-7.8); Neutrophils % 87.8 % (37.0-80.0); Platelet Count 119 K/mm3 (142-424); Red Blood Count 3.42 M/mm3 (4.20-5.40); White Blood Count 8.8 K/mm3 (4.8-10.8)
[2020-01-08 07:19] LABS: Anion Gap 11.5 mEq/L (5-15); Calcium 8.1 mg/dl (8.4-10.2)
--- NOTE | 2020-01-08 08:22 | Discharge Summary ---
General - General Admission date:: 01/04/20 Discharge date: 01/08/20 HPI HPI: 74-year-old white female with history of cholecystectomy in the remote past, bile acid reflux gastritis and GERD who presented to the emergency department with a 2-day history of nausea and vomiting that started without any kind of inciting food intake. She became nauseated a couple of days ago and abdominal pain has insidiously worsened until she presented to the ER yesterday evening. Found to have elevated white count, elevated bilirubin, elevated amylase and lipase, CT scan showed evidence of pancreatitis and she was admitted to the hospital for further diagnostic testing as well as IV antibiotics. Hospital Course Hospital Course: Patient was admitted, diagnosed with pancreatitis and worked up with normal lipid profile, negative gallbladder ultrasound and review of her medication list. 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 Hector is a 74-year-old female who was having some noncardiac chest pain that radiated into the shoulder blades last fall and she was admitted to [facility]. She had cardiac testing. The patient had an EGD with me on August 30, 2019. At that time she had moderate chronic atrophic gastritis as well as some esophageal dysmotility. She had bile reflux with some reactive gastropathy of the antrum. The patient had been seen for follow-up in November 2019 in my office. She was still having some esophageal chest pain but overall she was much improved. The patient did have an ERCP in September 2006 for sphincter of Oddi dysfunction. She has had prior cholecystectomy more than a decade ago. The patient presented with nausea, vomiting and abdominal pain. Her lab work showed elevated liver and pancreatic chemistries with an ALT level of 214 and a total bilirubin level of 2.6. The patient's amylase was 237 with a normal lipase of 254. The patient did undergo CT scan of the abdomen and pelvis and this did show findings compatible with acute pancreatitis. There was also moderate dilation of the common bile duct with mild intrahepatic biliary ductal dilation. Procedure: Prior to the procedure, a history and physical exam was performed, and patient's medications and allergies were reviewed. The risks, benefits and alternatives of the sedation and procedure were discussed with the patient. All questions were answered and informed consent was obtained. The patient was brought to the fluoroscopic radiology room. Patient identification and proposed procedure were verified by the physician and the nurse. The patient was placed in a swimmer's position between left lateral decubitus and prone position and the scope was passed under direct vision. Throughout the procedure, the patient's blood pressure, pulse, and oxygen saturations were monitored continuously. The ERCP was accomplished without difficulty. The patient tolerated the procedure well. Findings: The side-viewing scope was passed directly into the upper esophagus and advanced to the second portion of the duodenum. There was nonerosive GERD with mild esophageal dysmotility. There was marked bile reflux with linear reactive gastropathy and chronic atrophic gastritis. The duodenum was normal. The ampulla was well visualized. Both the pancreatic duct and common bile duct were cannulated with a guidewire. A pancreatogram was not performed intentionally. The cholangiogram did show an 8 to 9 mm common bile duct with normal filling of the intrahepatic biliary system. There was delayed drainage of contrast and bile from the ampulla which was tight but there was no discrete stricture within the biliary system on the cholangiogram. There was some hazy filling defect distally. A biliary sphincterotomy was performed maximally. Next, a 9 to 12 mm sweeping balloon was placed at the hilum and inflated to 9 mm and swept through the biliary system. There was excellent decompression with the passage of a small yellow 2 to 3 mm stone and some sludge. A second balloon sweep from the hilum yielded no further debris. Impression: 1. 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 She should have clinical improvement with biliary clearance and decompression. This could be some of the etiology of her prior chest pain. I will have her follow-up in the office in the next couple of weeks to re-assess for clinical improvement. Patient did well after the procedure, diet was advanced slowly and this morning she is back to her normal self, passing flatus, no jaundice, abdomen soft, imp roving. Plan will be discharged home today, short-term follow-up with my office and with GI specialty. Objective Vital signs: Temp Pulse Resp BP Pulse Ox 98.4 F 64 16 118/68 100 01/08/20 04:00 01/08/20 04:00 01/08/20 04:00 01/08/20 04:00 01/08/20 04:00 no acute distress - *Routine HEENT Exam Head: Present: normocephalic Eye: Present: EOMI, PERRL ENT: Present: mucous membranes moist - *Routine Neck Exam Present: supple - *Routine Respiratory Exam Present: CTA bilaterally - *Routine Cardiovascular Exam Present: RRR - *Routine Abdominal Exam Present: soft, normoactive bowel sounds. Absent: tenderness - *Routine Extremities Exam Absent: cyanosis, clubbing, edema - *Routine Skin Exam Present: warm. Absent: rash - Detailed Eye Exam Eyelids: Bilateral normal inspection Results Labs on day of discharge: Labs from last 24 hours 01/08/20 01/08/20 01/08/20 06:46 06:46 06:32 WBC 8.8 RBC 3.42 L Hgb 11.1 L Hct 33.7 L MCV 98.3 MCH 32.5 H MCHC 33.1 RDW 14.0 Plt Count 119 L MPV 8.7 Neut % (Auto) 87.8 H Lymph % (Auto) 5.2 L [place] % (Auto) 4.8 Eos % (Auto) 2.0 Baso % (Auto) 0.1 Neut # (Auto) 7.7 Lymph # (Auto) 0.5 L [place] # (Auto) 0.4 Eos # (Auto) 0.2 Baso # (Auto) 0.0 Sodium 137 Potassium 3.5 D Chloride 106 Carbon Dioxide 23 Anion Gap 11.5 BUN 10 Creatinine 0.90 Estimated Creat Clear 82 Estimated GFR 61 Est GFR ( Amer) 74 Glucose 102 H POC Glucose 137 H Calcium 8.1 L 01/07/20 01/07/20 01/07/20 21:29 15:45 12:07 WBC RBC Hgb Hct MCV MCH MCHC RDW Plt Count MPV Neut % (Auto) Lymph % (Auto) [place] % (Auto) Eos % (Auto) Baso % (Auto) Neut # (Auto) Lymph # (Auto) [place] # (Auto) Eos # (Auto) Baso # (Auto) Sodium Potassium Chloride Carbon Dioxide Anion Gap BUN Creatinine Estimated Creat Clear Estimated GFR Est GFR ( Amer) Glucose POC Glucose 101 88 92 Calcium Preliminary micro results at discharge 01/04/20 16:00 Blood Culture - Preliminary Blood NO GROWTH AFTER 48 HOURS 01/04/20 16:00 Blood Culture - Preliminary Blood NO GROWTH AFTER 48 HOURS DS: Diagnosis - Discharge Diagnosis (1) Elevated LFTs Status: Resolved (2) Hyperbilirubinemia Status: Resolved (3) Pancreatitis Status: Resolved (4) Urinary tract infection Status: Acute (5) Class 2 obesity Status: Chronic Discharge Plan - Patient Discharge Instructions ACTIVITY: Continue current activity DIET: low fat, low cholesterol Patient Instructions: DI for Pancreatitis, DI for Urinary Tract Infection (UTI), DI for Abdominal Pain-Adult - Follow up Plan Follow up with: Mario Perez MD [Staff Physician] - Catherine Saha APRN [Nurse Practitioner] - 01/13/20 10:00 am Disposition: Home, Self-[facility] Medications: Home Medications Medication Instructions Recorded Confirmed Type ALPRAZolam [Alprazolam 0.25mg 0.25 mg PO TIDP PRN 01/06/19 01/05/20 History Tab] Alendronate Sodium 70 mg PO WEEKLY 01/06/19 01/05/20 History Atorvastatin Calcium [Atorvastatin 10 mg PO HS 01/06/19 01/05/20 History 10mg Tab] Cevimeline HCl 30 mg PO TID 01/06/19 01/05/20 History Colchicine 0.6 mg PO DAILY 01/06/19 01/05/20 History Hydroxychloroquine Sulfate 200 mg PO BID 01/06/19 01/05/20 History [Plaquenil 200mg tablet] Oxybutynin Chloride [Oxybutynin 10 mg PO DAILY 01/06/19 01/05/20 History Chloride ER] Nitroglycerin 0.4 mg SL Q5MINP PRN 08/30/19 01/05/20 History calcium polycarbophiL [FiberCon 625 mg PO DAILY 08/30/19 01/04/20 History 625mg tablet] Aspirin [Aspir 81] 81 mg PO DAILY 01/04/20 01/04/20 History Colestipol HCl 1 gm PO BID 01/04/20 01/05/20 History Famotidine [Acid Training And Development Professional] 20 mg PO HS 01/04/20 01/04/20 History Furosemide [Lasix 20mg tab] 20 mg PO DAILY 01/04/20 01/04/20 History Lipase/Protease/Amylase [Creon Dr 1 each PO AC 01/04/20 01/05/20 History 36,000 Units Capsule] atenoloL [Atenolol 50mg Tab] 50 mg PO DAILY 01/04/20 01/04/20 History cycloSPORINE [Restasis] 1 drop OP DAILY 01/04/20 01/05/20 History Prescriptions/Medication Reconciliation: Continued Colchicine 0.6 mg PO DAILY Cevimeline HCl 30 mg PO TID Atorvastatin Calcium [Atorvastatin 10mg Tab] 10 mg PO HS ALPRAZolam [Alprazolam 0.25mg Tab] 0.25 mg PO TIDP PRN PRN Reason: Anxiety Alendronate Sodium 70 mg PO WEEKLY Nitroglycerin 0.4 mg SL Q5MINP PRN PRN Reason: Chest Pain calcium polycarbophiL [FiberCon 625mg tablet] 625 mg PO DAILY Aspirin [Aspir 81] 81 mg PO DAILY Colestipol HCl 1 gm PO BID cycloSPORINE [Restasis] 1 drop OP DAILY Famotidine [Acid Training And Development Professional] 20 mg PO HS Oxybutynin Chloride [Oxybutynin Chloride ER] 10 mg PO DAILY Hydroxychloroquine Sulfate [Plaquenil 200mg tablet] 200 mg PO BID atenoloL [Atenolol 50mg Tab] 50 mg PO DAILY Furosemide [Lasix 20mg tab] 20 mg PO DAILY Lipase/Protease/Amylase [Sallie Chen 36,000 Units Capsule] 1 each PO AC - Problem Reconciliation Problems Reviewed?: Yes
[2020-01-08 08:33] LABS: Eosinophils % 3 % (0-3); Lymphocytes % 5 % (10-50); Monocytes % 7 % (2-9); Neutrophils % 85 % (42-76); Total Cells Counted 100
[2020-01-08 08:34] LABS: RBC Morphology Normal
== END 2020-01-08 10:50 | disposition home or self-care (01) | DRG 439 ==
LOC: ER 15:49 → 2ND 15:49 → OBSVTOIN 20:06 → 2ND 20:07
PROVIDERS: ADMIT Family Medicine; ATTEND Internal Medicine Adolescent Medicine
CPT/HCPCS: 36415; 74177; 74330; 76700; 80048; 80053; 80061; 80076; 81001; 82150; 82962; 83605; 83690; 83880; 84484; 85007; 85025; 85610; 85730; 87040; 87086; 87088; 87186; 87275; 87276; 93005; 96365; 96366; 99284; J1956; J2405; Q9967

== ENCOUNTER → 2020-05-25 12:59 | Outpatient (POV) | payer MEDICARE, BC, SELFPAY | PROVIDERS: Visit Provider Nurse Practitioner Family | DX: Z00.00 Encounter for general adult medical examination without abnormal findings (principal) ==

== ENCOUNTER → 2020-11-18 09:50 | Outpatient (CLI) | payer MEDICARE, BC, SELFPAY ==
--- NOTE | 2020-11-18 09:55 | MM_ITS ---
PROCEDURE: MM DIG SCREENING MAMM BI W/CAD Digital Breast Tomosynthesis Included CLINICAL INDICATION: SCREENING There is a history of breast cancer in the patient's 2 maternal aunts both diagnosed after menopause. COMPARISON: MG DMSB DIG MAMM-SCREEN CECILIA from 09/19/2013 MG DMDB DIG MAMM-DX CECILIA from 09/04/2015 MG DMSB DIG MAMM-SCREEN CECILIA W/CAD from 04/11/2017 TECHNIQUE: Standard CC and MLO images and 3D Tomosynthesis was obtained. R2 CAD reviewed. FINDINGS: Mild to moderate scattered fibroglandular densities are seen throughout both breast. There are benign-appearing micro and macrocalcifications in each breast. There are small benign-appearing nodular densities in the central portions of both breasts. There is no suspicious lesion and no suspicious microcalcifications. IMPRESSION: Fibrofatty parenchyma with no suspicious lesions seen BI-RAD Category: 2 Benign Finding(s) FOLLOW-UP: 1YR 1 Year Follow-up (A letter has been sent to the patient regarding results of the study.) Dictated by: Dr. Tl Diaz MD 11/21/2020 12:27 Dr. Tl Diaz MD in [place] 11/21/2020 12:27
== END ==
PROVIDERS: PCP Internal Medicine Adolescent Medicine; Visit Provider Internal Medicine Adolescent Medicine
DX: Z12.31 Encounter for screening mammogram for malignant neoplasm of breast (principal)
CPT/HCPCS: 77063; 77067

== ENCOUNTER → 2020-11-26 16:22 | Outpatient (CLI) | payer MEDICARE, BC, SELFPAY ==
--- NOTE | 2020-11-26 16:27 | XR_ITS ---
PROCEDURE: XR THORACIC SPINE 3V CLINICAL INDICATION: STRAIN OF THORACIC BACK REGION, MUSCLE SPASM COMPARISON: No exams were available for comparison FINDINGS: Mild thoracic scoliosis convex right. Marginal osteophytes are present on the left at T10-T11 and T11-T12. 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 There is slight loss of height anteriorly of T6 age indeterminate. No lytic or blastic change. IMPRESSION: Degenerative changes with minimal wedging of T6 age indeterminate otherwise negative Dictated by: Vincenzo Barroso MD 11/26/2020 16:41 Vincenzo Barroso MD in [place] 11/26/2020 16:41
== END ==
PROVIDERS: PCP Nurse Practitioner Family; Visit Provider Nurse Practitioner Family
DX: S29.012A Strain of muscle and tendon of back wall of thorax, initial encounter (principal); M62.838 Other muscle spasm
CPT/HCPCS: 72072

== ENCOUNTER 2021-04-16 08:58 | Emergency (ER) | payer MEDICARE, BC, SELFPAY ==
[2021-04-16] VITALS (11 sets, daily range): BP systolic 132–183; BP diastolic 58–79; PULSE 50–61; RESP 16–19; TEMP 36.6–36.7; O2SAT 93–98; BMI 40.0
--- NOTE | 2021-04-16 08:54 | ECG_ITS ---
APPROVED REPORT Exam: Resting ECG HR:67 bpm ECG Measurements Heart Rate 67 AXES [place] 144 P 62 QRSd 90 QRS 55 QT 378 T 28 QTc 399 Conclusion Sinus rhythm with premature atrial complexes Possible Left atrial enlargement T wave abnormality, consider inferior ischemia Abnormal ECG Electronically signed by : José Miguel Verde, 04/16/2021 17:28:47
--- NOTE | 2021-04-16 09:01 | XR_ITS ---
PROCEDURE: XR CHEST PORTABLE CLINICAL HISTORY: CHEST PAIN COMPARISON: CR CXR1VP XR chest portable from 01/06/2019 FINDINGS: There has been a prior CABG. Heart size upper limits of normal. No evidence of CHF. The lungs are clear without infiltrates, suspicious nodules, or pleural effusions. No acute bony abnormalities. IMPRESSION: No change with no acute finding Dictated by: Vincenzo Barroso MD 04/16/2021 09:31 Vincenzo Barroso MD in [place] 04/16/2021 09:31
--- NOTE | 2021-04-16 09:02 | HMH.EDGENADL ---
ED Disposition Clinical Impression: Atypical chest pain Disposition: Home, Self-Care Condition on Discharge: Good Instructions: DI for Atypical Chest Pain Additional Instructions: See Dr. Amado in his office next as scheduled. Call Dr. Verde to make appointment for follow-up. Additional instructions for CHEST PAIN: Return immediately if worsening chest pain, vomiting, shortness of breath, fever, coughing of blood. Referrals: José Miguel Verde MD [Primary Care Provider] - - Critical Care Critical Care Time: No Attestation: On , the high probability of a clinically significant, sudden or life threatening deterioration of the following system(s) required my full and direct attention, intervention and personal management. The time I documented below is in addition to time spent performing reported procedures but includes the following listed in this critical care notation. Medical Decision Making - Earl Inquiry Pt receiving controlled substance: No Vital Signs: 04/16/21 08:59 04/16/21 09:18 04/16/21 09:45 Temperature 98.1 F Temperature Source Oral Pulse Rate 61 56 L Pulse Rate [Right] 61 Respiratory Rate 16 18 19 Blood Pressure 183/61 H 137/67 Blood Pressure [Right Arm] 183/61 H Blood Pressure Mean 101 Blood Pressure Mean [Right Arm] 101 Blood Pressure Source [Right Arm] Automatic Cuff Blood Pressure Position Blood Pressure Position [Right Arm] Sitting 02 Sat by Pulse Oximetry 98 95 93 L Oxygen Delivery Method Room Air 04/16/21 09:54 04/16/21 10:01 04/16/21 10:31 Temperature Temperature Source Pulse Rate 55 L 55 L 54 L Pulse Rate [Right] Respiratory Rate 18 18 18 Blood Pressure 137/67 148/58 H 155/61 H Blood Pressure [Right Arm] Blood Pressure Mean 88 94 Blood Pressure Mean [Right Arm] Blood Pressure Source [Right Arm] Blood Pressure Position Sitting Blood Pressure Position [Right Arm] 02 Sat by Pulse Oximetry 96 95 96 Oxygen Delivery Method Room Air 04/16/21 11:00 04/16/21 11:30 04/16/21 12:30 Temperature Temperature Source Pulse Rate 52 L 56 L 54 L Pulse Rate [Right] Respiratory Rate Blood Pressure 151/69 H 132/72 147/79 H Blood Pressure [Right Arm] Blood Pressure Mean Blood Pressure Mean [Right Arm] Blood Pressure Source [Right Arm] Blood Pressure Position Sitting Sitting Sitting Blood Pressure Position [Right Arm] 02 Sat by Pulse Oximetry 96 97 Oxygen Delivery Method Room Air Room Air 04/16/21 13:00 04/16/21 13:11 Temperature 98 F Temperature Source Oral Pulse Rate 50 L 52 L Pulse Rate [Right] Respiratory Rate 16 16 Blood Pressure 148/72 H 137/79 Blood Pressure [Right Arm] Blood Pressure Mean Blood Pressure Mean [Right Arm] Blood Pressure Source [Right Arm] Blood Pressure Position Sitting Blood Pressure Position [Right Arm] 02 Sat by Pulse Oximetry 97 Oxygen Delivery Method Room Air Room Air - Lab Data Lab Results 04/16/21 09:05: WBC 5.4, RBC 4.42, Hgb 14.0, Hct 42.3, MCV 95.9, MCH 31.8 H, MCHC 33.2, RDW 14.0, Plt Count 126 L, MPV 9.5, Neut % (Auto) 71.8, Lymph % (Auto) 19.4, [place] % (Auto) 6.7, Eos % (Auto) 1.6, Baso % (Auto) 0.5, Neut # (Auto) 3.9, Lymph # (Auto) 1.1, [place] # (Auto) 0.4, Eos # (Auto) 0.1, Baso # (Auto) 0.0 04/16/21 09:05: Sodium 140, Potassium 4.1, Chloride 106, Carbon Dioxide 26, Anion Gap 12.1, BUN 24 H, Creatinine 1.10 H, Estimated Creat Clear 70, Estimated GFR 49 L, Est GFR ( Amer) 59, Glucose 113 H, Calcium 9.2, Troponin I < 0.01 04/16/21 09:05: Troponin I Cancelled 04/16/21 09:05: Urine Color Yellow, Urine Appearance Clear, Urine pH 6.0, Ur Specific [place] 1.010, Urine Protein Negative, Urine Glucose (UA) Negative, Urine Ketones Negative, Urine Blood Trace-i, Urine Nitrate Negative, Urine Bilirubin Negative, Urine Urobilinogen 0.2, Ur Leukocyte Esterase 1+ A, Urine RBC None, Urine WBC 5-10, Ur Squamous Epith Cells 3-5, Urine Bacteria 2
[2021-04-16 09:27] LABS: Microscopic, Urine URINE MICROSCOPIC (MICROSCOPIC)
[2021-04-16 09:33] LABS: Basophils % 0.5 % (0.1-2.0); Eosinophils # 0.1 K/mm3 (0.0-0.4); Eosinophils % 1.6 % (0.1-12.0); Hematocrit 42.3 % (37.0-47.0); Lymphocytes # 1.1 K/mm3 (0.7-4.5); Lymphocytes % 19.4 % (10-50); Mean Corpuscular HGB Conc 33.2 g/dL (31.8-35.4); Mean Corpuscular Hemoglobin 31.8 pg (27.0-31.2); Mean Corpuscular Volume 95.9 fl (81-99); Mean Platelet Volume 9.5 fl (7.4-10.4); Monocytes # 0.4 K/mm3 (0.1-1.0); Monocytes % 6.7 % (1.7-9.3); Neutrophils # 3.9 K/mm3 (1.8-7.8); Neutrophils % 71.8 % (37.0-80.0); Platelet Count 126 K/mm3 (142-424); Red Blood Count 4.42 M/mm3 (4.20-5.40); White Blood Count 5.4 K/mm3 (4.8-10.8)
--- NOTE | 2021-04-16 10:14 | PC.NURSE ---
called lab regarding labs, just got them out of the shoot, it will be approx 10 mins
[2021-04-16 10:19] LABS: Chloride 106 mmol/L (98-107); Potassium 4.1 mmoL/L (3.5-5.1); Sodium 140 mmol/L (136-145)
[2021-04-16 10:22] LABS: Anion Gap 12.1 mEq/L (5-15); Blood Urea Nitrogen 24 mg/dl (7-17); Carbon Dioxide 26 mmol/L (22.0-30.0); Creatinine Clearance Estimated 70 mL/min (50-200); Estimated Glomerular Filt Rate 49 ml/min (>60); GFR (African American) 59 ML/MIN (>60); Glucose 113 mg/dl (74-100)
[2021-04-16 10:30] LABS: Appearance,Urine CLEAR (Clear); Bilirubin,Urine Negative (Negative); Blood, Urine TRACE-I (Negative); Color,Urine YELLOW (Yellow); Glucose,Urine (UA) Negative (Negative); Ketones,Urine Negative (Negative); Leukocyte Esterase,Urine 1+ (Negative); Nitrate,Urine Negative (Negative); Protein,Urine Negative (Negative); Urobilinogen,Urine 0.2 EU/dl (0.2)
[2021-04-16 10:35] LABS: Troponin I < 0.01 ng/ml (0.00-0.034)
--- NOTE | 2021-04-16 10:40 | PC.NURSE ---
MESSAGE LEFT FOR DR PEARL TO CALL DR ZAVALA
--- NOTE | 2021-04-16 10:45 | PC.NURSE ---
ELSI STEELE speaking with Dr. Gallegos
--- NOTE | 2021-04-16 10:55 | PC.NURSE ---
DR ABHISHEK NGO ,[facility]ROUGH [facility]
[2021-04-16 11:06] LABS: Bacteria,Urine 2+ /lpf
[2021-04-16 11:09] LABS: Yeast,Urine Occasional /lpf
--- NOTE | 2021-04-16 11:12 | PC.NURSE ---
DR ZAVALA SPEAKING TO DR WEISS'S NURSE PRACTITIONER !
--- NOTE | 2021-04-16 11:12 | PC.NURSE ---
speaking with JUNIOR ARCHITECT from [facility]
[2021-04-16 12:34] LABS: Troponin I < 0.01 ng/ml (0.00-0.034)
[2021-04-16 12:44] LABS: Calcium 9.2 mg/dl (8.4-10.2)
== END 2021-04-16 13:12 | disposition home or self-care (01) ==
PROVIDERS: Emergency Provider Emergency Medicine; PCP Internal Medicine Adolescent Medicine
DX: R07.89 Other chest pain (principal); K21.9 Gastro-esophageal reflux disease without esophagitis; I25.10 Atherosclerotic heart disease of native coronary artery without angina pectoris; I10 Essential (primary) hypertension; E78.5 Hyperlipidemia, unspecified; F41.9 Anxiety disorder, unspecified; Z79.899 Other long term (current) drug therapy
CPT/HCPCS: 71045; 80048; 81001; 84484; 85025; 87086; 87088; 87186; 93005; 99283

== ENCOUNTER → 2021-04-20 11:33 | Outpatient (CLI) | payer MEDICARE, BC, SELFPAY ==
[2021-04-20 13:24] LABS: Chol/HDL Ratio 2.1 (1-3.5); Cholesterol 109 mg/dl (140-200); HDL Cholesterol 51 mg/dl (40-60); Triglycerides 115 mg/dl (30-150); VLDL Cholesterol 23 mg/dL (0-40)
[2021-04-20 13:35] LABS: Direct LDL Cholesterol 45.12 mg/dL (100-129)
== END ==
PROVIDERS: Visit Provider Internal Medicine Adolescent Medicine
DX: I25.119 Atherosclerotic heart disease of native coronary artery with unspecified angina pectoris (principal)
CPT/HCPCS: 36415; 80061

== ENCOUNTER → 2021-09-20 10:03 | Outpatient (CLI) | payer MEDICARE, BC, SELFPAY ==
[2021-09-20 10:39] LABS: Basophils # 0.1 K/mm3 (0-0.2); Basophils % 1.4 % (0.1-2.0); Eosinophils # 0.1 K/mm3 (0.0-0.4); Hematocrit 43.3 % (37.0-47.0); Hemoglobin 14.2 g/dL (12.2-16.2); Lymphocytes % 22.7 % (10-50); Mean Corpuscular HGB Conc 32.7 g/dL (31.8-35.4); Mean Corpuscular Hemoglobin 33.2 pg (27.0-31.2); Mean Corpuscular Volume 101.5 fl (81-99); Mean Platelet Volume 9.3 fl (7.4-10.4); Monocytes # 0.4 K/mm3 (0.1-1.0); Neutrophils # 2.7 K/mm3 (1.8-7.8); Neutrophils % 63.9 % (37.0-80.0); Platelet Count 146 K/mm3 (142-424); Red Blood Count 4.26 M/mm3 (4.20-5.40); Red Cell Distribution Width 14.4 % (11.5-17.5); White Blood Count 4.2 K/mm3 (4.8-10.8)
[2021-09-20 11:47] LABS: Alanine Aminotransferase 28 U/L (12-78); Albumin Level 4.1 g/dl (3.5-5.0); Albumin/Globulin Ratio 1.8 (1.1-1.8); Alkaline Phosphatase 75 U/L (38-126); Anion Gap 11.4 mEq/L (5-15); Aspartate Amino Transferase 41 U/L (14-36); Bilirubin,Total 1.1 mg/dl (0.2-1.3); Blood Urea Nitrogen 24 mg/dl (7-17); Calcium 9.3 mg/dl (8.4-10.2); Carbon Dioxide 29 mmol/L (22.0-30.0); Chloride 106 mmol/L (98-107); Estimated Glomerular Filt Rate 54 ml/min (>60); GFR (African American) 65 ML/MIN (>60); Globulin 2.3 g/dL (1.3-3.2); Glucose 96 mg/dl (74-100); Potassium 4.4 mmoL/L (3.5-5.1); Sodium 142 mmol/L (136-145); Total Protein,Serum 6.4 g/dl (6.3-8.2)
== END ==
PROVIDERS: Visit Provider Internal Medicine Rheumatology
DX: D69.6 Thrombocytopenia, unspecified (principal); E55.9 Vitamin D deficiency, unspecified; K11.7 Disturbances of salivary secretion; M06.4 Inflammatory polyarthropathy; M06.9 Rheumatoid arthritis, unspecified
CPT/HCPCS: 36415; 80053; 85025

== ENCOUNTER 2021-11-01 10:08 | Emergency (ER) | payer MEDICARE, BC, SELFPAY ==
[2021-11-01] VITALS (14 sets, daily range): BP systolic 91–128; BP diastolic 52–106; PULSE 61–89; RESP 12–18; TEMP 36.6; O2SAT 96–100; BMI 38.9
--- NOTE | 2021-11-01 10:12 | XR_ITS ---
PROCEDURE: XR CHEST PORTABLE CLINICAL HISTORY: illness, cough COMPARISON: CR CXR1VP XR chest portable from 01/06/2019 CR XR CHEST PORTABLE from 04/16/2021 FINDINGS: Prior CABG. Normal heart size. The lungs are clear without infiltrates, suspicious nodules, or pleural effusions. Subchondral cystic changes left humeral head IMPRESSION: No change with no acute finding. Dictated by: Vincenzo Barroso MD 11/01/2021 10:42 Vincenzo Barroso MD in [place] 11/01/2021 10:42
--- NOTE | 2021-11-01 10:14 | HMH.EDGENADL ---
ED Disposition Clinical Impression: Urinary tract infection Qualifiers: Urinary tract infection type: acute cystitis Hematuria presence: without hematuria Qualified Code(s): N30.00 - Acute cystitis without hematuria Disposition: Home, Self-Care Condition on Discharge: Fair Instructions: DI for Acute Cystitis, DI for Viral Syndrome Additional Instructions: You have been evaluated for generalized illness, diagnosed with urinary tract infection. Please take Bactrim as prescribed. Take Zofran for nausea. Tylenol or Motrin for pain. Stay hydrated. Rest. Follow-up with your primary care doctor within 1 to 2 days for symptom recheck. Return to the emergency department at once for any new or worsening symptoms, vomiting, fever, weakness, other concerns Prescriptions: Sulfamethoxazole/Trimethoprim [Bactrim DS tablet] 1 each PO BID #14 tab Transmission Status: Pending to [facility] Ondansetron [Zofran 4mg ODT] 4 mg PO TIDP PRN #12 tab PRN Reason: Vomiting Transmission Status: Pending to [facility] Referrals: José Miguel Verde MD [Primary Care Provider] - Time of Disposition: 14:37 - Critical Care Critical Care Time: No Attestation: On , the high probability of a clinically significant, sudden or life threatening deterioration of the following system(s) required my full and direct attention, intervention and personal management. The time I documented below is in addition to time spent performing reported procedures but includes the following listed in this critical care notation. Medical Decision Making - Medical Records Medical records reviewed: Yes: I reviewed the patient's medical records. - Earl Inquiry Pt receiving controlled substance: No Vital Signs: 11/01/21 10:30 11/01/21 10:36 11/01/21 11:01 Temperature 98 F Temperature Source Oral Pulse Rate 85 78 Pulse Rate [Left Radial] 89 Respiratory Rate 17 18 17 Blood Pressure 108/68 L 104/68 L Blood Pressure [Right Arm] 117/82 Blood Pressure Mean 81 77 Blood Pressure Mean [Right Arm] 93 02 Sat by Pulse Oximetry 99 96 99 Oxygen Delivery Method Room Air 11/01/21 11:30 11/01/21 12:00 11/01/21 13:01 Temperature Temperature Source Pulse Rate 67 68 67 Pulse Rate [Left Radial] Respiratory Rate 17 13 16 Blood Pressure 114/61 113/65 102/61 L Blood Pressure [Right Arm] Blood Pressure Mean 79 81 66 Blood Pressure Mean [Right Arm] 02 Sat by Pulse Oximetry 99 98 98 Oxygen Delivery Method 11/01/21 13:07 11/01/21 13:31 11/01/21 14:00 Temperature Temperature Source Pulse Rate 66 66 74 Pulse Rate [Left Radial] Respiratory Rate 13 12 18 Blood Pressure 108/63 L 111/52 L 91/66 L Blood Pressure [Right Arm] Blood Pressure Mean 78 79 72 Blood Pressure Mean [Right Arm] 02 Sat by Pulse Oximetry 99 100 100 Oxygen Delivery Method - Lab Data Lab Results 11/01/21 10:30: WBC 3.7 L, RBC 4.86, Hgb 16.0, Hct 46.3, MCV 95.3, MCH 33.0 H, MCHC 34.6, RDW 14.2, Plt Count 124 L, MPV 9.8, Neut % (Auto) 77.7, Lymph % (Auto) 9.9 L, [place] % (Auto) 9.9 H, Eos % (Auto) 1.5, Baso % (Auto) 0.9, Neut # (Auto) 2.8, Lymph # (Auto) 0.4 L, [place] # (Auto) 0.4, Eos # (Auto) 0.1, Baso # (Auto) 0.0 11/01/21 10:30: Sodium 139, Potassium 3.7, Chloride 105, Carbon Dioxide 23, Anion Gap 14.7, BUN 24 H, Creatinine 1.20 H, Estimated Creat Clear 60, Estimated GFR 44 L, Est GFR ( Amer) 53 L, Glucose 108 H, Calcium 9.2, Total Bilirubin 1.2, AST 61 H, ALT 42, Alkaline Phosphatase 67, Total Protein 7.3, Albumin 4.6, Globulin 2.7, Albumin/Globulin Ratio 1.7, Lipase 96 11/01/21 11:00: SARS-CoV-2 (PCR) Not detected, Influenza A Untype (PCR) Not detected, Influenza Type B (PCR) Not detected 11/01/21 12:12: Urine Color Yellow, Urine Appearance Sl cloudy, Urine pH 6.0, Ur Specific [place] 1.015, Urine Protein Trace, Urine Glucose (UA) Negative, Urine Ketones Negative, Urine Blood 1+, Urine Nitrate Positive, Urine Bilirubin Negative, Urine
[2021-11-01 10:39] LABS: Basophils % 0.9 % (0.1-2.0); Eosinophils # 0.1 K/mm3 (0.0-0.4); Eosinophils % 1.5 % (0.1-12.0); Hematocrit 46.3 % (37.0-47.0); Lymphocytes # 0.4 K/mm3 (0.7-4.5); Lymphocytes % 9.9 % (10-50); Mean Corpuscular HGB Conc 34.6 g/dL (31.8-35.4); Mean Corpuscular Volume 95.3 fl (81-99); Mean Platelet Volume 9.8 fl (7.4-10.4); Monocytes # 0.4 K/mm3 (0.1-1.0); Monocytes % 9.9 % (1.7-9.3); Neutrophils # 2.8 K/mm3 (1.8-7.8); Neutrophils % 77.7 % (37.0-80.0); Platelet Count 124 K/mm3 (142-424); Red Blood Count 4.86 M/mm3 (4.20-5.40); Red Cell Distribution Width 14.2 % (11.5-17.5); White Blood Count 3.7 K/mm3 (4.8-10.8)
[2021-11-01 10:43] LABS: Chloride 105 mmol/L (98-107); Potassium 3.7 mmoL/L (3.5-5.1); Sodium 139 mmol/L (136-145)
[2021-11-01 10:45] LABS: Blood Urea Nitrogen 24 mg/dl (7-17)
[2021-11-01 10:46] LABS: Alanine Aminotransferase 42 U/L (12-78); Albumin Level 4.6 g/dl (3.5-5.0); Albumin/Globulin Ratio 1.7 (1.1-1.8); Alkaline Phosphatase 67 U/L (38-126); Anion Gap 14.7 mEq/L (5-15); Aspartate Amino Transferase 61 U/L (14-36); Bilirubin,Total 1.2 mg/dl (0.2-1.3); Calcium 9.2 mg/dl (8.4-10.2); Carbon Dioxide 23 mmol/L (22.0-30.0); Creatinine Clearance Estimated 60 mL/min (50-200); Estimated Glomerular Filt Rate 44 ml/min (>60); GFR (African American) 53 ML/MIN (>60); Globulin 2.7 g/dL (1.3-3.2); Glucose 108 mg/dl (74-100); Lipase 96 U/L (23-300); Total Protein,Serum 7.3 g/dl (6.3-8.2)
[2021-11-01 11:18] LABS: Coronavirus 19, PCR Not Detected (NotDetected); Influenza A, PCR Not Detected (NotDetected); Influenza B, PCR Not Detected (NotDetected)
[2021-11-01 12:22] LABS: Microscopic, Urine URINE MICROSCOPIC (MICROSCOPIC)
[2021-11-01 12:25] LABS: Appearance,Urine SL CLOUDY (Clear); Bilirubin,Urine Negative (Negative); Blood, Urine 1+ (Negative); Color,Urine YELLOW (Yellow); Glucose,Urine (UA) Negative (Negative); Ketones,Urine Negative (Negative); Leukocyte Esterase,Urine 2+ (Negative); Nitrate,Urine POSITIVE (Negative); Protein,Urine TRACE (Negative); Specific Gravity, Urine 1.015 (1.005-1.030); Urobilinogen,Urine 0.2 EU/dl (0.2)
--- NOTE | 2021-11-01 12:26 | CT_ITS ---
PROCEDURE: CT ABDOMEN PELVIS W CON CLINICAL INDICATION: abdominal pain, vomiting COMPARISON: CT CT ABDOMEN PELVIS W CON from 01/04/2020 CR XR CHEST PORTABLE from 11/01/2021 TECHNIQUE: IV Contrast: 75ML Isovue 370 Oral Contrast None Axial images obtained with sagittal and coronal reformats. All CT scans at the facility use one or more dose reduction, viz: automated exposure control, ma/kV adjustment per patient size (including targeted exams where dose is matched to indication, i.e. head), or iterative reconstruction technique. FINDINGS: LOWER THORAX: Prior CABG ABDOMEN & PELVIS: There has been a prior cholecystectomy. There is mild biliary ectasia with common patent duct at approximately 10 mm. Not significantly changed. No focal liver lesion apparent. The spleen and adrenal glands have an unremarkable appearance. Unremarkable appearing pancreas. No renal or ureteral calculi. No hydronephrosis. There is mild prominence of the renal pelves. No evidence of appendicitis. No intestinal obstruction or free air. Coarse calcification noted in the uterine fundus consistent with fibroid involvement. No evidence of diverticulitis. There is mild distention of the urinary bladder. Degenerative changes of the lumbar spine. Prior posterior fusion at L4-5. Status post total right hip replacement IMPRESSION: No acute finding. Incidental findings as described above. Please see above for detailed description. Dictated by: Vincenzo Barroso MD 11/01/2021 14:29 Vincenzo Barroso MD in [place] 11/01/2021 14:29
[2021-11-01 12:42] LABS: Bacteria,Urine 2+ /lpf
== END 2021-11-01 16:38 | disposition home or self-care (01) ==
PROVIDERS: Emergency Provider Emergency Medicine; PCP Internal Medicine Adolescent Medicine
DX: N30.00 Acute cystitis without hematuria (principal); B96.20 Unspecified Escherichia coli [E. coli] as the cause of diseases classified elsewhere; K21.9 Gastro-esophageal reflux disease without esophagitis; Z96.641 Presence of right artificial hip joint; Z96.642 Presence of left artificial hip joint
CPT/HCPCS: 71045; 74177; 80053; 81001; 83690; 85025; 87086; 87088; 87186; 96365; 96375; 99283; C9803; J2405; Q9967; U0003; U0005

== ENCOUNTER 2022-01-04 09:44 | Emergency (ER) | payer MEDICARE, BC, SELFPAY ==
[2022-01-04 09:45] VITALS: BP 129/92; PULSE 72; RESP 19; TEMP 37.5; O2SAT 95; BMI 39.8
--- NOTE | 2022-01-04 10:10 | HMH.EDNVD ---
ED Disposition Clinical Impression: Gastroenteritis Disposition: Home, Self-Care Condition on Discharge: Good Instructions: DI for Viral Gastroenteritis -- Adult Prescriptions: Ondansetron [Zofran 4mg ODT] 4 mg PO BIDP PRN #10 tab PRN Reason: Nausea Transmission Status: Pending to [facility] Referrals: Catherine Saha APRN [Primary Care Provider] - - Critical Care Critical Care Time: No Attestation: On , the high probability of a clinically significant, sudden or life threatening deterioration of the following system(s) required my full and direct attention, intervention and personal management. The time I documented below is in addition to time spent performing reported procedures but includes the following listed in this critical care notation. Medical Decision Making - Medical Records Medical records reviewed: Yes: I reviewed the patient's medical records. - Earl Inquiry Pt receiving controlled substance: No Vital Signs: 01/04/22 09:45 01/04/22 10:42 Temperature 99.5 F Temperature Source Oral Pulse Rate 65 Pulse Rate [Left Radial] 72 Respiratory Rate 19 Blood Pressure 115/54 L Blood Pressure [Right Arm] 129/92 H Blood Pressure Mean [Right Arm] 104 Blood Pressure Source [Right Arm] Automatic Cuff Blood Pressure Position [Right Arm] Sitting 02 Sat by Pulse Oximetry 95 98 Oxygen Delivery Method Room Air Room Air - Lab Data Lab Results 01/04/22 10:13: WBC 3.9 L, RBC 4.10 L, Hgb 13.5, Hct 40.6, MCV 99.1 H, MCH 32.9 H, MCHC 33.2, RDW 14.2, Plt Count 98 L, MPV 9.3, Neut % (Auto) 82.2 H, Lymph % (Auto) 8.7 L, [place] % (Auto) 8.4, Eos % (Auto) 0.3, Baso % (Auto) 0.3, Neut # (Auto) 3.2, Lymph # (Auto) 0.3 L, [place] # (Auto) 0.3, Eos # (Auto) 0.0, Baso # (Auto) 0.0 01/04/22 10:13: Sodium 134 L, Potassium 3.5, Chloride 104, Carbon Dioxide 22, Anion Gap 11.5, BUN 21 H, Creatinine 0.90, Estimated Creat Clear 71, Estimated GFR 61, Est GFR ( Amer) 74, Glucose 93, Calcium 7.5 L, Total Bilirubin 0.9, AST 51 H, ALT 29, Alkaline Phosphatase 59, Total Protein 6.5, Albumin 4.0, Globulin 2.5, Albumin/Globulin Ratio 1.6 01/04/22 10:13: Lipase 106 01/04/22 10:40: SARS-CoV-2 (PCR) Not detected, Influenza A Untype (PCR) Not detected, Influenza Type B (PCR) Not detected Result diagrams: 01/04/22 10:13 01/04/22 10:13 Orders (Tests/Meds): ED MEDICATIONS Generic Name Dose Route Start Last Admin Trade Name Freq PRN Reason Stop Dose Admin Sodium Chloride 10 ml 01/04/22 09:57 Sodium Chloride 0.9% 10ml Flush Syringe IV 02/03/22 09:56 NEEDED PRN Maintain IV Site Discontinued Medications Generic Name Dose Route Start Last Admin Trade Name Freq PRN Reason Stop Dose Admin Sodium Chloride 1,000 mls @ 999 mls/hr 01/04/22 10:00 01/04/22 10:15 Sod Chlor 0.9% 1000ml Bag IV 01/04/22 11:00 999 mls/hr .Q1H1M FANI Administration Ondansetron HCl 4 mg 01/04/22 09:57 01/04/22 10:15 Ondansetron 4mg/2ml Vial IV 01/04/22 09:58 4 mg ONCE ONE Administration - Reevaluation(s) Time: 12:01 Reevaluation #1: On reevaluation, the patient is feeling much better. Nausea is improved. She is tolerating oral intake. Repeat abdominal exam is benign. There is no evidence of acute abdomen. Believe patient symptoms are consistent with gastroenteritis. She will follow up with her PCP within 48 hours for repeat abdominal examination. Given strict return precautions. Verbalized understanding. Medical Decision Narrative: 76-year-old female presented to the emergency department with some nausea vomiting diarrhea. The patient has a normal abdominal examination. No evidence of acute abdomen. I do believe symptoms are consistent with gastroenteritis. Work-up initiated. Nausea/Vomiting/Diarrhea HPI - General Chief complaint: Nausea/Vomiting/Diarrhea Stated complaint: vomiting/diarrhea Time Seen by Provider: 01/04/22 09:50 Mode of Arrival: Wheelchair Limitati
[2022-01-04 10:22] LABS: Basophils % 0.3 % (0.1-2.0); Eosinophils % 0.3 % (0.1-12.0); Hematocrit 40.6 % (37.0-47.0); Hemoglobin 13.5 g/dL (12.2-16.2); Lymphocytes # 0.3 K/mm3 (0.7-4.5); Lymphocytes % 8.7 % (10-50); Mean Corpuscular HGB Conc 33.2 g/dL (31.8-35.4); Mean Corpuscular Hemoglobin 32.9 pg (27.0-31.2); Mean Corpuscular Volume 99.1 fl (81-99); Mean Platelet Volume 9.3 fl (7.4-10.4); Monocytes # 0.3 K/mm3 (0.1-1.0); Monocytes % 8.4 % (1.7-9.3); Neutrophils # 3.2 K/mm3 (1.8-7.8); Neutrophils % 82.2 % (37.0-80.0); Platelet Count 98 K/mm3 (142-424); Red Cell Distribution Width 14.2 % (11.5-17.5); White Blood Count 3.9 K/mm3 (4.8-10.8)
[2022-01-04 10:26] LABS: Chloride 104 mmol/L (98-107); Potassium 3.5 mmoL/L (3.5-5.1); Sodium 134 mmol/L (136-145)
[2022-01-04 10:29] LABS: Alanine Aminotransferase 29 U/L (12-78); Albumin/Globulin Ratio 1.6 (1.1-1.8); Alkaline Phosphatase 59 U/L (38-126); Anion Gap 11.5 mEq/L (5-15); Aspartate Amino Transferase 51 U/L (14-36); Bilirubin,Total 0.9 mg/dl (0.2-1.3); Blood Urea Nitrogen 21 mg/dl (7-17); Carbon Dioxide 22 mmol/L (22.0-30.0); Creatinine Clearance Estimated 71 mL/min (50-200); Estimated Glomerular Filt Rate 61 ml/min (>60); GFR (African American) 74 ML/MIN (>60); Globulin 2.5 g/dL (1.3-3.2); Total Protein,Serum 6.5 g/dl (6.3-8.2)
[2022-01-04 10:30] LABS: Calcium 7.5 mg/dl (8.4-10.2); Glucose 93 mg/dl (74-100); Lipase 106 U/L (23-300)
[2022-01-04 10:42] VITALS: BP 115/54; PULSE 65; O2SAT 98
[2022-01-04 10:45] LABS: Coronavirus 19, PCR Not Detected (NotDetected); Influenza A, PCR Not Detected (NotDetected); Influenza B, PCR Not Detected (NotDetected)
[2022-01-04 12:31] VITALS: BP 117/70; PULSE 61; RESP 17; TEMP 37.5; O2SAT 97
== END 2022-01-04 12:35 | disposition home or self-care (01) ==
PROVIDERS: Emergency Provider Emergency Medicine; PCP Nurse Practitioner Family
DX: K52.9 Noninfective gastroenteritis and colitis, unspecified (principal); K21.9 Gastro-esophageal reflux disease without esophagitis; E78.5 Hyperlipidemia, unspecified; I10 Essential (primary) hypertension; F41.9 Anxiety disorder, unspecified; Z96.641 Presence of right artificial hip joint; Z79.899 Other long term (current) drug therapy
CPT/HCPCS: 80053; 83690; 85025; 96365; 96375; 99283; C9803; J2405; U0003; U0005

== ENCOUNTER → 2022-03-21 08:52 | Outpatient (CLI) | payer MEDICARE, BC, SELFPAY ==
[2022-03-21 10:04] LABS: Alanine Aminotransferase 29 U/L (12-78); Albumin Level 4.1 g/dl (3.5-5.0); Albumin/Globulin Ratio 1.9 (1.1-1.8); Alkaline Phosphatase 84 U/L (38-126); Anion Gap 12.9 mEq/L (5-15); Aspartate Amino Transferase 38 U/L (14-36); Bilirubin,Total 0.7 mg/dl (0.2-1.3); Blood Urea Nitrogen 20 mg/dl (7-17); Calcium 9.3 mg/dl (8.4-10.2); Carbon Dioxide 27 mmol/L (22.0-30.0); Chloride 106 mmol/L (98-107); Estimated Glomerular Filt Rate 54 ml/min (>60); GFR (African American) 65 ML/MIN (>60); Globulin 2.2 g/dL (1.3-3.2); Glucose 106 mg/dl (74-100); Potassium 3.9 mmoL/L (3.5-5.1); Sodium 142 mmol/L (136-145); Total Protein,Serum 6.3 g/dl (6.3-8.2)
[2022-03-21 10:10] LABS: Basophils # 0.1 K/mm3 (0-0.2); Basophils % 1.4 % (0.1-2.0); Eosinophils # 0.1 K/mm3 (0.0-0.4); Eosinophils % 2.8 % (0.1-12.0); Hematocrit 41.8 % (37.0-47.0); Hemoglobin 13.7 g/dL (12.2-16.2); Lymphocytes # 0.9 K/mm3 (0.7-4.5); Lymphocytes % 23.8 % (10-50); Mean Corpuscular HGB Conc 32.7 g/dL (31.8-35.4); Mean Corpuscular Hemoglobin 32.5 pg (27.0-31.2); Mean Corpuscular Volume 99.6 fl (81-99); Mean Platelet Volume 9.4 fl (7.4-10.4); Monocytes # 0.3 K/mm3 (0.1-1.0); Monocytes % 8.5 % (1.7-9.3); Neutrophils # 2.3 K/mm3 (1.8-7.8); Neutrophils % 63.5 % (37.0-80.0); Platelet Count 138 K/mm3 (142-424); Red Cell Distribution Width 14.7 % (11.5-17.5); White Blood Count 3.6 K/mm3 (4.8-10.8)
== END ==
PROVIDERS: PCP Internal Medicine Adolescent Medicine; Visit Provider Internal Medicine Rheumatology
DX: D69.9 Hemorrhagic condition, unspecified (principal); E53.8 Deficiency of other specified B group vitamins; E55.9 Vitamin D deficiency, unspecified; K11.7 Disturbances of salivary secretion; M06.4 Inflammatory polyarthropathy
CPT/HCPCS: 36415; 80053; 82746; 85025

== ENCOUNTER → 2022-04-27 09:44 | Outpatient (CLI) | payer MEDICARE, BC, SELFPAY ==
[2022-04-27 10:55] LABS: Chol/HDL Ratio 2.1 (1-3.5); Cholesterol 100 mg/dl (140-200); HDL Cholesterol 47 mg/dl (40-60); Triglycerides 126 mg/dl (30-150); VLDL Cholesterol 25 mg/dL (0-40)
[2022-04-27 11:06] LABS: Direct LDL Cholesterol 37.77 mg/dL (100-129)
== END ==
PROVIDERS: PCP Internal Medicine Adolescent Medicine; Visit Provider Physician Assistant Medical
DX: I25.10 Atherosclerotic heart disease of native coronary artery without angina pectoris (principal)
CPT/HCPCS: 36415; 80061

== ENCOUNTER → 2022-09-20 09:32 | Outpatient (CLI) | payer MEDICARE, BC, SELFPAY ==
[2022-09-20 10:41] LABS: Basophils % 0.7 % (0.1-2.0); Eosinophils # 0.1 K/mm3 (0.0-0.4); Eosinophils % 2.3 % (0.1-12.0); Hematocrit 45.8 % (37.0-47.0); Hemoglobin 14.6 g/dL (12.2-16.2); Lymphocytes # 1.3 K/mm3 (0.7-4.5); Lymphocytes % 26.5 % (10-50); Mean Corpuscular HGB Conc 31.8 g/dL (31.8-35.4); Mean Corpuscular Hemoglobin 32.4 pg (27.0-31.2); Mean Corpuscular Volume 101.9 fl (81-99); Mean Platelet Volume 9.1 fl (7.4-10.4); Monocytes # 0.3 K/mm3 (0.1-1.0); Monocytes % 6.1 % (1.7-9.3); Neutrophils # 3.1 K/mm3 (1.8-7.8); Neutrophils % 64.4 % (37.0-80.0); Platelet Count 162 K/mm3 (142-424); Red Blood Count 4.49 M/mm3 (4.20-5.40); White Blood Count 4.9 K/mm3 (4.8-10.8)
[2022-09-20 11:03] LABS: Alanine Aminotransferase 27 U/L (12-78); Albumin Level 4.5 g/dl (3.5-5.0); Alkaline Phosphatase 87 U/L (38-126); Aspartate Amino Transferase 40 U/L (14-36); Bilirubin,Total 0.9 mg/dl (0.2-1.3); Blood Urea Nitrogen 22 mg/dl (7-17); Calcium 9.1 mg/dl (8.4-10.2); Carbon Dioxide 26 mmol/L (22.0-30.0); Chloride 104 mmol/L (98-107); Estimated Glomerular Filt Rate 54 ml/min (>60); GFR (African American) 65 ML/MIN (>60); Globulin 2.3 g/dL (1.3-3.2); Glucose 98 mg/dl (74-100); Sodium 143 mmol/L (136-145); Total Protein,Serum 6.8 g/dl (6.3-8.2)
[2022-09-20 11:18] LABS: 25-OH Vitamin D, Total 55.7 ng/mL (30-100)
== END ==
PROVIDERS: PCP Internal Medicine Adolescent Medicine; Visit Provider Internal Medicine Rheumatology
DX: D69.6 Thrombocytopenia, unspecified (principal); E55.9 Vitamin D deficiency, unspecified; M06.9 Rheumatoid arthritis, unspecified; M81.0 Age-related osteoporosis without current pathological fracture; Z79.899 Other long term (current) drug therapy
CPT/HCPCS: 36415; 80053; 82306; 85025

== ENCOUNTER 2023-03-06 09:13 | Emergency (ER) | payer MEDICARE, BC, SELFPAY ==
[2023-03-06] VITALS (8 sets, daily range): BP systolic 100–150; BP diastolic 70–80; PULSE 54–63; RESP 14–23; TEMP 36.7–37.2; O2SAT 95–98; BMI 43.9
--- NOTE | 2023-03-06 09:13 | ECG_ITS ---
APPROVED REPORT Exam: Resting ECG HR:61 bpm ECG Measurements Heart Rate [address] 141 P 79 QRSd 107 QRS 69 QT 397 T -70 QTc 400 Conclusion SINUS RHYTHM POSSIBLE LEFT ATRIAL ENLARGEMENT [-0.1mV P-WAVE IN V1/V2] POSSIBLE RIGHT VENTRICULAR CONDUCTION DELAY [RSR (QR) IN V1/V2] POSSIBLE LATERAL MYOCARDIAL INFARCTION , OF INDETERMINATE AGE [30 ms Q WAVE IN I/aVL/V5/V6] MODERATE T-WAVE ABNORMALITY, CONSIDER ANTERIOR ISCHEMIA [-0.1+ mV T-WAVE IN V3/V4] ABNORMAL ECG UNCONFIRMED REPORT Electronically signed by : José Miguel Verde MD 03/06/2023 19:43:35
--- NOTE | 2023-03-06 09:22 | XR_ITS ---
FINAL REPORT CLINICAL HISTORY: Midsternal chest pain COMPARISON: 12/02/2020 FINDINGS: 2 views of the chest were obtained . The heart is normal in size. Patient is status post median sternotomy. The mediastinum is within normal limits. The lungs are clear. There is no pneumothorax. Osseous structures are unremarkable. IMPRESSION: No acute cardiopulmonary process. Reviewed, Interpreted and Dictated by Mt Kapadia III, MD Transcribed by Ely Condon Authenticated and [facility]
[2023-03-06 09:29] LABS: Basophils % 0.4 % (0.1-2.0); Eosinophils # 0.1 K/mm3 (0.0-0.4); Eosinophils % 1.7 % (0.1-12.0); Hematocrit 41.1 % (37.0-47.0); Hemoglobin 13.7 g/dL (12.2-16.2); Lymphocytes % 16.9 % (10-50); Mean Corpuscular HGB Conc 33.3 g/dL (31.8-35.4); Mean Corpuscular Hemoglobin 32.9 pg (27.0-31.2); Mean Corpuscular Volume 98.8 fl (81-99); Monocytes # 0.3 K/mm3 (0.1-1.0); Monocytes % 5.7 % (1.7-9.3); Neutrophils # 4.5 K/mm3 (1.8-7.8); Neutrophils % 75.2 % (37.0-80.0); Platelet Count 133 K/mm3 (142-424); Red Blood Count 4.16 M/mm3 (4.20-5.40); Red Cell Distribution Width 14.2 % (11.5-17.5)
[2023-03-06 09:33] LABS: Chloride 106 mmol/L (98-107)
[2023-03-06 09:34] LABS: Potassium 3.8 mmoL/L (3.5-5.1); Sodium 140 mmol/L (136-145)
--- NOTE | 2023-03-06 09:36 | PC.NURSE ---
pt returned from radiology.
[2023-03-06 09:37] LABS: Anion Gap 12.8 mEq/L (5-15); Blood Urea Nitrogen 26 mg/dl (7-17); Calcium 8.9 mg/dl (8.4-10.2); Carbon Dioxide 25 mmol/L (22.0-30.0); Creatinine Clearance Estimated 38 mL/min (50-200); Estimated Glomerular Filt Rate 54 ml/min (>60); GFR (African American) 65 ML/MIN (>60); Glucose 115 mg/dl (74-100)
[2023-03-06 10:11] LABS: Troponin I < 0.01 ng/ml (0.00-0.034)
--- NOTE | 2023-03-06 11:17 | HMH.EDGENADL ---
Discharge Plan Disposition Patient Disposition: Home, Self-Care Condition: Good Chief Complaint: Chest Pain Prescriptions Prescriptions: No Action atorvastatin 10 MG Tablet 10 mg PO HS oxybutynin chloride 10 MG Tab.Er.24 10 mg PO DAILY alendronate 70 MG Tablet 70 mg PO WEEKLY alprazolam 0.25 MG Tablet 0.25 mg PO TIDP PRN (Reason: Anxiety) cevimeline 30 MG Capsule 30 mg PO TID hydroxychloroquine 200 MG Tablet 200 mg PO BID Label Comments: 1 a day. 2 the next day colchicine 0.6 MG Tablet 0.6 mg PO DAILY sulfamethoxazole-trimethoprim 1 EACH tablet 1 each PO BID Qty: 14 0RF ondansetron 4 MG tablet,disintegrating 4 mg PO TIDP PRN (Reason: Vomiting) Qty: 12 0RF ondansetron 4 MG tablet,disintegrating 4 mg PO BIDP PRN (Reason: Nausea) Qty: 10 0RF calcium polycarbophil 625 MG tablet 625 mg PO DAILY nitroglycerin 0.4 MG tablet, sublingual 0.4 mg SL Q5MINP PRN (Reason: Chest Pain) aspirin 81 MG tablet,delayed release (DR/EC) 81 mg PO DAILY famotidine 20 MG tablet 20 mg PO HS furosemide 20 MG tablet 20 mg PO DAILY colestipol 1 GM tablet 1 gm PO BID atenolol 50 MG tablet 50 mg PO DAILY cyclosporine 1 EACH dropperette 1 drop OP DAILY ngqegn-tvqgqndc-yjltftw 1 EACH capsule,delayed release(DR/EC) 1 each PO AC Referrals Follow up/Referrals: José Miguel Verde MD [Primary Care Provider] - See instructions Clinical Impressions Clinical Impression: Atypical chest pain Discharge ED Provider: Alon Manrique General Adult HPI General Chief complaint: Chest Pain Stated complaint: chest pain Time Seen by Provider: 03/06/23 09:15 Mode of Arrival: Ambulatory Source of Information: Patient Limitations: No Limitations Description of Symptoms (Recalled from ER Triage Doc. by RN): pt comes in with multiple complaints. pt reports chest pain began this morning around 7 am. pt reports that she had somewhere to go today to assist with planning for a close friend and felt anxious and chest pain. pt also reports knee pain from a previous fall. generalized anxiety ongoing for a few days. History of Present Illness HPI narrative: 77yo F presents to the ER with multiple complaints: Possible diverticulitis flare, mild chest pain with radiation from bilateral shoulders to bilateral elbows, knee pain from a fall 2 weeks ago. Patient reports she supposed to be at a in [facility] but wanted to get this checked out real quick before she made the trip. Related Data Home Medications Medication Instructions Recorded Confirmed alendronate 70 mg tablet 70 mg PO WEEKLY Osteoporosis 01/06/19 01/05/20 alprazolam 0.25 mg tablet 0.25 mg PO TIDP PRN Anxiety 01/06/19 01/05/20 atorvastatin 10 mg tablet 10 mg PO HS Cholesterol 01/06/19 01/05/20 cevimeline 30 mg capsule 30 mg PO TID dry mouth 01/06/19 01/05/20 colchicine 0.6 mg tablet 0.6 mg PO DAILY gout 01/06/19 01/05/20 hydroxychloroquine 200 mg tablet 200 mg PO BID Arthritis 01/06/19 01/05/20 oxybutynin chloride 10 mg 10 mg PO DAILY BLADDER 01/06/19 01/05/20 tablet,extended release 24 hr calcium polycarbophil 625 mg tablet 625 mg PO DAILY Supplement 08/30/19 01/04/20 nitroglycerin 0.4 mg sublingual 0.4 mg SL Q5MINP PRN Chest Pain 08/30/19 01/05/20 tablet aspirin 81 mg tablet,delayed 81 mg PO DAILY heart health 01/04/20 01/04/20 release atenolol 50 mg tablet 50 mg PO DAILY Hypertension 01/04/20 01/04/20 colestipol 1 gram tablet 1 gm PO BID Cholesterol 01/04/20 01/05/20 cyclosporine 0.05 % eye drops in a 1 drop OP DAILY dry eyes 01/04/20 01/05/20 dropperette famotidine 20 mg tablet 20 mg PO HS GERD 01/04/20 01/04/20 furosemide 20 mg tablet 20 mg PO DAILY Fluid 01/04/20 01/04/20 aifpcn-gmdkhuyh-mxoyhmg 1 each PO AC PANCREATIC 01/04/20 01/05/20 36,000-114,000-180,000 unit INSUFFICIENCY capsule,delay rel Previous Rx's Medication Instructions
[2023-03-06 12:20] LABS: Troponin I < 0.01 ng/ml (0.00-0.034)
== END 2023-03-06 12:32 | disposition home or self-care (01) ==
PROVIDERS: Emergency Provider Family Medicine; PCP Internal Medicine Adolescent Medicine
DX: R07.89 Other chest pain (principal); M25.511 Pain in right shoulder; M25.512 Pain in left shoulder
CPT/HCPCS: 71046; 80048; 84484; 85025; 93005; 99285

== ENCOUNTER → 2023-03-18 09:24 | Outpatient (CLI) | payer MEDICARE, BC, SELFPAY ==
[2023-03-18 09:50] LABS: Basophils % 0.4 % (0.1-2.0); Eosinophils # 0.1 K/mm3 (0.0-0.4); Eosinophils % 2.6 % (0.1-12.0); Hematocrit 43.6 % (37.0-47.0); Hemoglobin 14.1 g/dL (12.2-16.2); Lymphocytes # 0.8 K/mm3 (0.7-4.5); Lymphocytes % 22.3 % (10-50); Mean Corpuscular HGB Conc 32.3 g/dL (31.8-35.4); Mean Corpuscular Hemoglobin 32.3 pg (27.0-31.2); Mean Corpuscular Volume 99.8 fl (81-99); Monocytes # 0.3 K/mm3 (0.1-1.0); Monocytes % 7.4 % (1.7-9.3); Neutrophils # 2.5 K/mm3 (1.8-7.8); Neutrophils % 67.3 % (37.0-80.0); Platelet Count 131 K/mm3 (142-424); Red Blood Count 4.37 M/mm3 (4.20-5.40); Red Cell Distribution Width 14.1 % (11.5-17.5); White Blood Count 3.6 K/mm3 (4.8-10.8)
[2023-03-18 10:08] LABS: Chloride 100 mmol/L (98-107); Sodium 142 mmol/L (136-145)
[2023-03-18 10:09] LABS: Potassium 4.5 mmoL/L (3.5-5.1)
[2023-03-18 10:11] LABS: Alanine Aminotransferase 29 U/L (12-78); Alkaline Phosphatase 69 U/L (38-126); Aspartate Amino Transferase 35 U/L (14-36); Blood Urea Nitrogen 24 mg/dl (7-17); Estimated Glomerular Filt Rate 48 ml/min (>60); GFR (African American) 58 ML/MIN (>60)
[2023-03-18 10:12] LABS: Albumin Level 4.2 g/dl (3.5-5.0); Calcium 9.1 mg/dl (8.4-10.2); Globulin 2.1 g/dL (1.3-3.2); Glucose 98 mg/dl (74-100); Total Protein,Serum 6.3 g/dl (6.3-8.2)
[2023-03-18 11:38] LABS: Anion Gap 17.5 mEq/L (5-15); Carbon Dioxide 29 mmol/L (22.0-30.0)
== END ==
PROVIDERS: PCP Internal Medicine Adolescent Medicine; Visit Provider Internal Medicine Rheumatology
DX: D69.6 Thrombocytopenia, unspecified (principal); E55.9 Vitamin D deficiency, unspecified; K11.7 Disturbances of salivary secretion; M06.4 Inflammatory polyarthropathy; M06.9 Rheumatoid arthritis, unspecified
CPT/HCPCS: 36415; 80053; 85025

== ENCOUNTER → 2023-04-21 09:23 | Outpatient (CLI) | payer MEDICARE, BC, SELFPAY ==
[2023-04-21 10:33] LABS: Alanine Aminotransferase 26 U/L (12-78); Albumin Level 4.1 g/dl (3.5-5.0); Albumin/Globulin Ratio 1.9 (1.1-1.8); Alkaline Phosphatase 101 U/L (38-126); Anion Gap 13.1 mEq/L (5-15); Aspartate Amino Transferase 37 U/L (14-36); Blood Urea Nitrogen 30 mg/dl (7-17); Calcium 8.8 mg/dl (8.4-10.2); Carbon Dioxide 27 mmol/L (22.0-30.0); Chloride 105 mmol/L (98-107); Estimated Glomerular Filt Rate 54 ml/min (>60); GFR (African American) 65 ML/MIN (>60); Globulin 2.2 g/dL (1.3-3.2); Glucose 92 mg/dl (74-100); Potassium 4.1 mmoL/L (3.5-5.1); Sodium 141 mmol/L (136-145); Total Protein,Serum 6.3 g/dl (6.3-8.2)
[2023-04-21 10:49] LABS: 25-OH Vitamin D, Total 50.5 ng/mL (30-100)
== END ==
PROVIDERS: PCP Internal Medicine Adolescent Medicine; Visit Provider Internal Medicine Rheumatology
DX: D69.6 Thrombocytopenia, unspecified (principal); E55.9 Vitamin D deficiency, unspecified; K11.7 Disturbances of salivary secretion; M06.4 Inflammatory polyarthropathy; M06.9 Rheumatoid arthritis, unspecified
CPT/HCPCS: 36415; 80053; 82306

== ENCOUNTER → 2023-09-01 10:25 | Outpatient (CLI) | payer MEDICARE, BC, SELFPAY ==
--- OUTSIDE RECORDS SUMMARY | 2023-09-01 10:29 | XMS_ITS | Clinical Summary ---
Author Name Unknown Address [address] [place] [address] Phone Organization [facility] Address [address] [place] [address] Phone Care Team Providers Care Sales Promotion Coordinator Name Role Phone MIGDALIA KHANNA MD Primary Care Provider [phone] Karen SARAVIA, Chris Carranza Unavailable [phone] Reason for Visit and Chief Complaint INJECTION Problems Includes: Problems addressed during this encounter and other active Problems All Visits Onset Date Resolved Date Provider Condition S tatus Pain in the Left Foot 03/27/2023 Chris Jones DPM Active Plan of Treatment Diagnosis: left foot tarsal/metatarsal arthropathy Procedure: Tarsal/metatarsal injection under fluoro note: skin was prepped with chloroprep and skin anesthetized with 1% lidocaine. a 22ga needle was placed into the first tarsat-metatarsal joint on the right foot using fluoroscopy for guidance. once in position bupivicaine and 40mg of kenalog was injected, bandage applied and patient left in stable condition. she will f/u in office for results of injection - Last Documented On 04/17/2023 8:09AM ; [facility] Assessments Includes: Assessments from this encounter No Assessments Recorded Medical Equipment - Implanted Devices Includes: Current Devices No Medical Equipment Recorded Medications Includes: Medications discussed during this encounter and other current Medications Current Medications (continue as prescribed)
--- OUTSIDE RECORDS SUMMARY | 2023-09-01 10:29 | XMS_ITS | Clinical Summary ---
Author Name Unknown Address [address] [place] [address] Phone Organization [facility] Address [address] [place] [address] Phone Care Team Providers Care Thermal Spray Operator Name Role Phone MIGDALIA KHANNA MD Primary Care Provider [phone] Karen SARAVIA, Chris Carranza Unavailable [phone] Reason for Visit and Chief Complaint The Chief Complaint is: Left foot pain Problems Includes: Problems addressed during this encounter and other active Problems All Visits Onset Date Resolved Date Provider Condition S tatus Pain in the Left Foot 03/27/2023 Chris Jones DPM Active Plan of Treatment Fall Risk Assessment: This patient has been identified as a fall risk. Balance/gait along with postural blood pressure, vision and home fall hazards have been assessed. Medications have been reviewed, and recommendations made with regard to contributing factors for future falls. Plan of care: Consideration of vitamin D supplementation along with balance and strength training with consideration for formal physical therapy has been discussed with the patient. - Last Documented On 03/27/2023 1:29PM ; [facility] I did review the history. I did examine this patient. She does see Dr. Elba Tom of rheumatology and has an appointment tomorrow with her. This patient has had good success with fluoroscopic guided corticosteroid injection into the tarsometatarsal joint complex on that left side. She has responded positively to a topical compounded medication in the past but does not have any of that currently. She does wear good-quality stuk-ppu-fxjejjz insert. We asked her to continue all of the
--- OUTSIDE RECORDS SUMMARY | 2023-09-01 10:29 | XMS_ITS ---
Author Name Unknown Address [address] [place] [address] Phone Organization [facility] Address [address] [place] [address] Phone Care Team Providers Care Fresco Artist Name Role Phone MIGDALIA KHANNA MD Primary Care Provider [phone] Karen SARAVIA, Chris Carranza Unavailable [phone] Problems Includes: Active, inactive, and resolved Problems All Visits Onset Date Resolved Date Provider Condition S tatus Pain in the Left Foot 03/27/2023 Chris Jones DPM Active Plan of Treatment Instructions to patient Lose weight Last Documented On 3 1:11PM ; [facility] Lose weight Last Documented On 0 9:11AM ; [facility] Assessments Includes: Assessments for all patient encounters No Assessments Recorded Instructions Includes: Instructions for all patient encounters Instructions to patient Lose weight Last Documented On 3 1:11PM ; [facility] Lose weight Last Documented On 0 9:11AM ; [facility] Medical Equipment - Implanted Devices Includes: Current and historica
--- OUTSIDE RECORDS SUMMARY | 2023-09-01 10:29 | XMS_ITS | Clinical Summary ---
Author Name Unknown Address [address] [place] [address] Phone Organization [facility] Address [address] [place] [address] Phone Care Team Providers Care Tc Operator Name Role Phone CLEMENCIA STEELE MIGDALIA Primary Care Provider [phone] Chris Jones DPM Unavailable Unavailable Reason for Visit and Chief Complaint [Patient Encounter] Problems Includes: Problems addressed during this encounter and other active Problems All Visits Onset Date Resolved Date Provider Condition S tatus Pain in the Left Foot 03/27/2023 Chris Jones DPM Active Plan of Treatment No Plan of Treatment Recorded Assessments Includes: Assessments from this encounter No Assessments Recorded Medical Equipment - Implanted Devices Includes: Current Devices No Medical Equipment Recorded Medications Includes: Medications discussed during this encounter and other current Medications Current Medications (continue as prescribed) Adult Aspirin Regimen 81 MG Oral Tablet Delayed Releas e 03/27/2023 Provider: Diagnosis: Restasis 0.05% Ophthalmic Emulsion 03/17/2023 Provid er: DENNIS GAGNON MD Diagnosis:
--- OUTSIDE RECORDS SUMMARY | 2023-09-01 10:29 | XMS_ITS ---
Care Plan - [facility] Created on: September 01, 2023 Gina Hector : 1945 Sex: Female Author Name Unknown Address [address] [place] [place] [address] Phone Organization [facility] Address [address] [place] [address] Phone Care Team Providers Care Coffee Machine Technician Name Role Phone MIGDALIA KHANNA MD Primary Care Provider [phone] Chris Jones DPM Unavailable [phone]
--- OUTSIDE RECORDS SUMMARY | 2023-09-01 10:29 | XMS_ITS | Continuity of Care Document ---
Author Name Unknown Organization [facility] Address [address] [address] Phone Care Team Providers Care Obstetrics Gynecology Physician Name Role Phone Elba Tom MD Unavailable Unavailable Allergies, Adverse Reactions, Alerts Substance Reaction Status Criticality trimethoprim Active No Information sulfamethoxazole Active No Informat ion Penicillins Active No Information ibuprofen Active No Information Medications Medication Instructions Dosage Effective Dates (start - stop) Status Comments baclofen 10 mg tablet 1/2-1 tablet tid prn spasm. - Active cevimeline 30 mg capsule take 1 capsule by oral route 3 times every day 30 MG - Active hydroxychloroquine 200 mg tablet TAKE 1 TABLET BY MOUTH ONCE DAILY - Active NITROSTAT (unknown strength) take 1 tablet once a day as needed Not Available - Active Colestid 1 gram tablet take 2 tablet by oral route every day swallowing whole with any liquid. Do not crush, chew and/or divide. as needed 2 G - Active B-12 Compliance 1,000 mcg/mL injection kit inject 1 milliliter by intramuscular route every month - Active
--- OUTSIDE RECORDS SUMMARY | 2023-09-01 10:29 | XMS_ITS | Clinical Summary ---
Author Name Unknown Address [address] [place] [address] Phone Organization [facility] Address [address] [place] [address] Phone Care Team Providers Care Wool Hanker Name Role Phone MIGDALIA KHANNA MD Primary Care Provider [phone] Karen SARAVIA, Chris Carranza Unavailable [phone] Reason for Visit and Chief Complaint INJECTION Problems Includes: Problems addressed during this encounter and other active Problems All Visits Onset Date Resolved Date Provider Condition S tatus Pain in the Left Foot 03/27/2023 Chris Jones DPM Active Plan of Treatment Patient presents today for injection into painful joints of their left foot diagnosis: left foot metatarsal-cuneiform arthropathy Skin was prepped with ChloraPrep in anesthetized using 1% lidocaine. Under fluoroscopic guidance a 22-gauge needle was guided into the painful joints. Once confirmed under x-ray and injection of bupivacaine and 40 mg od depo-medrol was injected. Sterile dressing was applied. The patient will follow back in the office for a follow-up assessment. codes: 04644, 82154-68 - Last Documented On 08/07/2020 7:51AM ; [facility] Assessments Includes: Assessments from this encounter No Assessments Recorded Medical Equipment - Implanted Devices Includes: Current Devices No Medical Equipment Recorded Medications Includes: Medications discussed during this encounter and other current Medications Current Medications (continue as prescribed)
--- OUTSIDE RECORDS SUMMARY | 2023-09-01 10:30 | XMS_ITS | Clinical Summary ---
Author Name Unknown Address [address] [place] [address] Phone Organization [facility] Address [address] [place] [address] Phone Care Team Providers Care Chief Nurse Name Role Phone MIGDALIA KHANNA MD Primary Care Provider [phone] Karen SARAVIA, Chris Carranza Unavailable [phone] Reason for Visit and Chief Complaint The Chief Complaint is: Left foot pain Problems Includes: Problems addressed during this encounter and other active Problems Current Visit Onset Date Resolved Date Provider Rahel flores Status Pain in the Left Foot 03/27/2023 Chris Jones DPM Active Plan of Treatment I did review the history. I did examine this patient. 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 I did review the history. I did discuss treatment options. We did agree to pursue fluoroscopic guided corticosteroid injection into the tarsometatarsal joint complex and medial naviculocuneiform joint complex pair We also discussed and decided to proceed with a prescription for topical compounded medication for symptom management. We will also place her in a power step insert to give her better architectural support. It sounds as though she may have had a component of posterior tibial tendon dysfunction or tendinitis previously but that does not appear to be the case today. She does have a fair amount of bilateral lower extremity edema. We did make a recommendation for compression stockings to help control the edema. I will see her back as needed. - Last Documented On 07/21/2020 9:34AM ; [facility]
[2023-09-01 10:47] LABS: Basophils % 0.5 % (0.1-2.0); Eosinophils # 0.1 K/mm3 (0.0-0.4); Eosinophils % 2.6 % (0.1-12.0); Hematocrit 39.5 % (37.0-47.0); Hemoglobin 13.9 g/dL (12.2-16.2); Lymphocytes # 1.2 K/mm3 (0.7-4.5); Lymphocytes % 28.6 % (10-50); Mean Corpuscular HGB Conc 35.2 g/dL (31.8-35.4); Mean Corpuscular Hemoglobin 34.9 pg (27.0-31.2); Mean Corpuscular Volume 99.3 fl (81-99); Mean Platelet Volume 9.7 fl (7.4-10.4); Monocytes # 0.4 K/mm3 (0.1-1.0); Monocytes % 8.6 % (1.7-9.3); Neutrophils # 2.5 K/mm3 (1.8-7.8); Neutrophils % 59.6 % (37.0-80.0); Platelet Count 114 K/mm3 (142-424); Red Blood Count 3.98 M/mm3 (4.20-5.40); Red Cell Distribution Width 13.5 % (11.5-17.5); White Blood Count 4.2 K/mm3 (4.8-10.8)
[2023-09-01 11:13] LABS: Alanine Aminotransferase 24 U/L (12-78); Albumin Level 4.1 g/dl (3.5-5.0); Albumin/Globulin Ratio 1.8 (1.1-1.8); Alkaline Phosphatase 84 U/L (38-126); Aspartate Amino Transferase 38 U/L (14-36); Blood Urea Nitrogen 24 mg/dl (7-17); Calcium 8.9 mg/dl (8.4-10.2); Carbon Dioxide 25 mmol/L (22.0-30.0); Chloride 106 mmol/L (98-107); Estimated Glomerular Filt Rate 61 ml/min (>60); GFR (African American) 73 ML/MIN (>60); Globulin 2.3 g/dL (1.3-3.2); Glucose 105 mg/dl (74-100); Sodium 140 mmol/L (136-145); Total Protein,Serum 6.4 g/dl (6.3-8.2)
[2023-09-01 11:28] LABS: 25-OH Vitamin D, Total 55.1 ng/mL (30-100)
== END ==
PROVIDERS: PCP Internal Medicine Adolescent Medicine; Visit Provider Internal Medicine Rheumatology
DX: D69.6 Thrombocytopenia, unspecified (principal); E55.9 Vitamin D deficiency, unspecified; K11.7 Disturbances of salivary secretion; M06.4 Inflammatory polyarthropathy; M06.9 Rheumatoid arthritis, unspecified
CPT/HCPCS: 36415; 80053; 82306; 85025

== ENCOUNTER → 2023-10-02 09:33 | Outpatient (CLI) | payer MEDICARE, BC, SELFPAY ==
[2023-10-02 10:48] LABS: Chol/HDL Ratio 2.2 (1-3.5); Cholesterol 103 mg/dl (140-200); HDL Cholesterol 46 mg/dl (40-60); Triglycerides 131 mg/dl (30-150); VLDL Cholesterol 26 mg/dL (0-40)
[2023-10-02 10:59] LABS: Direct LDL Cholesterol 46.31 mg/dL (100-129)
[2023-10-02 11:33] LABS: Vitamin B12 845 pg/mL (239-931)
== END ==
PROVIDERS: PCP Internal Medicine Adolescent Medicine; Visit Provider Internal Medicine Adolescent Medicine
DX: I10 Essential (primary) hypertension (principal); E78.2 Mixed hyperlipidemia; E53.8 Deficiency of other specified B group vitamins
CPT/HCPCS: 36415; 80061; 82607

== ENCOUNTER 2024-01-04 10:24 | Emergency (ER) | payer MEDICARE, BC, SELFPAY ==
[2024-01-04] VITALS (8 sets, daily range): BP systolic 109–146; BP diastolic 51–82; PULSE 52–68; RESP 18; TEMP 36.6–36.7; O2SAT 96–100; BMI 39.6
--- NOTE | 2024-01-04 10:22 | ECG_ITS ---
APPROVED REPORT Exam: Resting ECG HR:63 bpm ECG Measurements Heart Rate 63 AXES SD 131 P 62 QRSd 107 QRS 64 QT 397 T -46 QTc 404 Conclusion SINUS RHYTHM POSSIBLE RIGHT VENTRICULAR CONDUCTION DELAY [RSR (QR) IN V1/V2] MODERATE T-WAVE ABNORMALITY, CONSIDER LATERAL ISCHEMIA [-0.1+ mV T-WAVE IN I/aVL/V5/V6] ABNORMAL ECG UNCONFIRMED REPORT Electronically signed by : José Miguel Verde MD 01/04/2024 16:33:20
--- NOTE | 2024-01-04 10:37 | XR_ITS ---
FINAL REPORT CLINICAL HISTORY: precordial chest pain COMPARISON: 03/06/2023 FINDINGS: The heart size is mildly enlarged. Sternotomy wires are present. There is scarring at the right lung base which is stable. There is no focal infiltrate or edema. There are no pleural effusions. There is no pneumothorax. There is no osseous abnormality. IMPRESSION: No acute cardiopulmonary process Reviewed, Interpreted and Dictated by Chapin Maxwell MD Transcribed by Mary Rayo Authenticated and [facility]
[2024-01-04] MEDS: ASPIRIN 81MG CHEWABLE TABLET 324 MG PO (10:42)
[2024-01-04 10:47] LABS: Basophils % 0.4 % (0.1-2.0); Eosinophils # 0.1 K/mm3 (0.0-0.4); Eosinophils % 1.3 % (0.1-12.0); Hematocrit 44.6 % (37.0-47.0); Hemoglobin 14.6 g/dL (12.2-16.2); Lymphocytes # 1.3 K/mm3 (0.7-4.5); Lymphocytes % 21.6 % (10-50); Mean Corpuscular HGB Conc 32.6 g/dL (31.8-35.4); Mean Corpuscular Hemoglobin 33.5 pg (27.0-31.2); Mean Corpuscular Volume 102.7 fl (81-99); Monocytes # 0.4 K/mm3 (0.1-1.0); Monocytes % 7.1 % (1.7-9.3); Neutrophils # 4.1 K/mm3 (1.8-7.8); Neutrophils % 69.5 % (37.0-80.0); Platelet Count 131 K/mm3 (142-424); Red Blood Count 4.34 M/mm3 (4.20-5.40); Red Cell Distribution Width 13.6 % (11.5-17.5); White Blood Count 5.8 K/mm3 (4.8-10.8)
[2024-01-04 10:48] LABS: Chloride 107 mmol/L (98-107); Sodium 140 mmol/L (136-145)
[2024-01-04 10:49] LABS: Potassium 4.3 mmoL/L (3.5-5.1)
[2024-01-04 10:51] LABS: Alanine Aminotransferase 30 U/L (12-78); Alkaline Phosphatase 83 U/L (38-126); Aspartate Amino Transferase 40 U/L (14-36); Bilirubin,Total 1.2 mg/dl (0.2-1.3); Blood Urea Nitrogen 24 mg/dl (7-17); Creatinine Clearance Estimated 64 mL/min (50-200); Estimated Glomerular Filt Rate 48 ml/min (>60); GFR (African American) 58 ML/MIN (>60)
[2024-01-04 10:52] LABS: Albumin Level 4.5 g/dl (3.5-5.0); Albumin/Globulin Ratio 1.7 (1.1-1.8); Anion Gap 10.3 mEq/L (5-15); Calcium 9.4 mg/dl (8.4-10.2); Carbon Dioxide 27 mmol/L (22.0-30.0); Globulin 2.7 g/dL (1.3-3.2); Glucose 112 mg/dl (74-100); Total Protein,Serum 7.2 g/dl (6.3-8.2)
[2024-01-04 11:04] LABS: Troponin I < 0.01 ng/ml (0.00-0.034)
[2024-01-04 11:08] LABS: Lipase 106 U/L (23-300)
--- NOTE | 2024-01-04 11:10 | PC.NURSE ---
PT WAS GIVEN A WATER NO OTHER NEEDS AT THIS TIME,CALL LIGHT AT BS
--- NOTE | 2024-01-04 11:54 | [facility].EDCP ---
Discharge Plan Disposition Patient Disposition: Home, Self-Care Condition: Good Prescriptions Prescriptions: No Action atorvastatin 10 MG Tablet 10 mg PO HS oxybutynin chloride 10 MG Tab.Er.24 10 mg PO DAILY alendronate 70 MG Tablet 70 mg PO WEEKLY alprazolam 0.25 MG Tablet 0.25 mg PO TIDP PRN (Reason: Anxiety) cevimeline 30 MG Capsule 30 mg PO TID hydroxychloroquine 200 MG Tablet 200 mg PO BID Patient Comments: 1 a day. 2 the next day colchicine 0.6 MG Tablet 0.6 mg PO DAILY sulfamethoxazole-trimethoprim 1 EACH tablet 1 each PO BID Qty: 14 0RF ondansetron 4 MG tablet,disintegrating 4 mg PO TIDP PRN (Reason: Vomiting) Qty: 12 0RF ondansetron 4 MG tablet,disintegrating 4 mg PO BIDP PRN (Reason: Nausea) Qty: 10 0RF calcium polycarbophil 625 MG tablet 625 mg PO DAILY nitroglycerin 0.4 MG tablet, sublingual 0.4 mg SL Q5MINP PRN (Reason: Chest Pain) aspirin 81 MG tablet,delayed release (DR/EC) 81 mg PO DAILY famotidine 20 MG tablet 20 mg PO HS furosemide 20 MG tablet 20 mg PO DAILY colestipol 1 GM tablet 1 gm PO BID atenolol 50 MG tablet 50 mg PO DAILY cyclosporine 1 EACH dropperette 1 drop OP DAILY [id number] 1 EACH capsule,delayed release(DR/EC) 1 each PO AC Referrals Follow up/Referrals: Catherine Saha APRN [Primary Care Provider] - See instructions Activity Restrictions/Add. Instructions Additional Instructions/Restrictions: You were evaluated in the emergency department today. 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 Return to the emergency department for new or worsening symptoms. Clinical Impressions Clinical Impression: Chest pain Instructions Patient Instructions: DI for Atypical Chest Pain Discharge ED Provider: Pari [facility] Chief Complaint: Chest Pain Stated Complaint: chest pain Time Seen by Provider: 01/04/24 10:28 Mode of Arrival: Ambulatory Source of Information: Patient Limitations: No Limitations Description of Symptoms (Recalled from ER Triage Doc. by RN): Patient states she woke up yesterday with pain in her shoulders that radiated to chest. States she took 3 nitro and felt better was able to go on about her day. Patient states she woke up today with similar pain and decided she needed to get checked due to her cardiac history. History of Present Illness HPI narrative: This patient is a 78-year-old female with a history of CAD status post CABG, obesity, and GERD presenting to the emergency department for evaluation with concern for chest pain. Patient states that yesterday, she was having pain in her left shoulder that radiated around the left side to her chest. She took 3 nitroglycerin, and the pain was better. She went on about her day and did not think much about it. She woke up today with similar pain. She states she thought it might of been her acid reflux, so she drank a Sprite at home. She notes that she felt extremely loud and then felt immediately better. Given her cardiac history and the fact that she had never had true chest pain in the past with prior [place], she decided to come in for evaluation today to make sure that there was not something going on with her heart. She is currently feeling great and denies any symptoms at this time. Of note, the patient's most recent cardiac catheterization was last year, and she states that it was reassuring. Related Data Home Medications Medication Instructions Recorded Confirmed alendronate 70 mg tablet 70 mg PO WEEKLY Osteoporosis 01/06/19 01/05/20 alprazolam 0.25 mg tablet 0.25 mg PO TIDP PRN Anxiety 01/06/19 01/05/20 atorvastatin 10 mg tablet 10 mg PO HS Cholesterol 01/06/19 01/05/20 cevimeline 30 mg capsule 30 mg PO TID dry mouth 01/06/19 01/05/20 colchicine 0.6 mg tablet 0.6 mg PO DAILY gout 01/06/19 01/05/20 hydroxychloroquine 200 mg tablet 200 mg PO BID Arthritis 01/06/19 01/05/20 oxybutynin chloride 10 mg 10 mg PO DAILY BLADDER 01/06/19 01/05/20 tablet,extended release 24 hr calcium polycarbophil 625 mg tablet 625 mg PO DAILY Supplement 08/30/19 01/04/20 nitroglycerin 0.4 mg sublingual 0.4 mg SL Q5MINP PRN Chest Pain 08/30/19 01/05/20 tablet aspirin 81 mg tablet,delayed 81 mg PO DAILY heart health 01/04/20 01/04/20 release atenolol 50 mg tablet 50 mg PO DAILY Hypertension 01/04/20 01/04/20 colestipol 1 gram tablet 1 gm PO BID Cholesterol 01/04/20 01/05/20 cyclosporine 0.05 % eye drops in a 1 drop OP DAILY dry eyes 01/04/20 01/05/20 dropperette famotidine 20 mg tablet 20 mg PO HS GERD 01/04/20 01/04/20 furosemide 20 mg tablet 20 mg PO DAILY Fluid 01/04/20 01/04/20 [id number]-[id number]-[id number] 1 each PO AC PANCREATIC 01/04/20 01/05/20 36,000-114,000-180,000 unit INSUFFICIENCY capsule,delay rel Previous Rx's Medication Instructions Recorded ondansetron 4 mg disintegrating 4 mg PO TIDP PRN Vomiting #12 tabs 11/01/21 tablet sulfamethoxazole 800 1 each PO BID #14 tabs 11/01/21 mg-trimethoprim 160 mg tablet ondansetron 4 mg disintegrating 4 mg PO BIDP PRN Nausea #10 tabs 01/04/22 tablet Allergies Allergy/AdvReac Type Severity Reaction Status Date / Time Penicillins Allergy Intermediate Rash Verified 08/30/19 10:35 ibuprofen [From Motrin] Allergy Mild Verified 08/30/19 10:35 sulfamethoxazole Allergy Verified 01/04/22 10:35 [From Bactrim] trimethoprim [From Bactrim] Allergy Verified 01/04/22 10:35 PFSH [facility] Disclaimer: The information contained in this section may have been updated after the patient was seen, as this information can be updated by other users. Social History Smoking Status: Never smoker alcohol intake: never substance use type: denies use current occupational status: retired Travel in the last 8 weeks: None caffeine: Yes ROS Obtained: Yes All systems reviewed & no additional complaints except as documented Physical Exam General General appearance: alert and in no apparent distress Head Head exam: atraumatic and normocephalic Eye Eye exam: Present normal appearance, PERRL and EOMI ENT ENT exam: Present normal exam, normal oropharynx, mucous membranes moist and normal external ear exam Neck Neck exam: Present normal inspection, full ROM and trachea midline; Absent tenderness Chest Chest inspection: Present normal inspection and symmetric chest wall rise; Absent tenderness Respiratory Respiratory exam: Present normal lung sounds bilaterally; Absent respiratory distress, wheezes, stridor or accessory muscle use Cardiovascular Cardiovascular exam: Present regular rate and normal rhythm Abdominal Exam Abdominal exam: Present soft; Absent distention, tenderness or guarding Extremities Exam Extremities exam: Present normal inspection, full ROM and normal capillary refill; Absent tenderness or edema Back Exam Back exam: Present normal inspection and full ROM; Absent tenderness Neurological Exam Neurological exam: Present alert, oriented X3, CN II-XII intact and normal gait; Absent motor sensory deficit Psychiatric Psychiatric exam: Present normal affect and normal mood Skin Skin exam: Present warm and dry HEART Score HEART Score HEART Score assessment performed?: Yes History (anamnesis): Slightly suspicious ECG: Normal Age: >65 years Risk factors: Atherosclerosis history Troponin: </= normal limit HEART Score: 4 Critical Care Critical Care Time Critical Care Time: No Medical Decision Making Medical Records Medical records reviewed: Yes I reviewed the patient's medical records. Earl Inquiry Pt receiving controlled substance: No Vital Signs Vital Signs: 01/04/24 10:24 01/04/24 10:33 01/04/24 10:33 Temperature 98.0 F Temperature Source Oral Pulse Rate 63 59 L Pulse Rate [Right] 64 Respiratory Rate 18 Blood Pressure 123/82 Blood Pressure [Right Arm] 146/51 H Blood Pressure Mean [Right Arm] 82 Blood Pressure Source Blood Pressure Source [Right Arm] Automatic Cuff 02 Sat by Pulse Oximetry 99 97 Oxygen Delivery Method Room Air Room Air 01/04/24 11:01 01/04/24 11:30 01/04/24 12:00 Temperature Temperature Source Pulse Rate 60 54 L 54 L Pulse Rate [Right] Respiratory Rate Blood Pressure 109/64 L 133/69 136/70 Blood Pressure [Right Arm] Blood Pressure Mean [Right Arm] Blood Pressure Source Blood Pressure Source [Right Arm] 02 Sat by Pulse Oximetry 96 98 99 Oxygen Delivery Method Room Air Room Air Room Air 01/04/24 12:30 01/04/24 13:00 01/04/24 13:23 Temperature 97.8 F Temperature Source Oral Pulse Rate 54 L 52 L 68 Pulse Rate [Right] Respiratory Rate 18 Blood Pressure 129/65 145/68 H 144/68 H Blood Pressure [Right Arm] Blood Pressure Mean [Right Arm] Blood Pressure Source Automatic Cuff Blood Pressure Source [Right Arm] 02 Sat by Pulse Oximetry 100 98 Oxygen Delivery Method Room Air Room Air Room Air Lab Data Labs: Lab Results 01/04/24 10:29: WBC 5.8, RBC 4.34, Hgb 14.6, Hct 44.6, MCV 102.7 H, MCH 33.5 H, MCHC 32.6, RDW 13.6, Plt Count 131 L, MPV 10.0, Neut % (Auto) 69.5, Lymph % (Auto) 21.6, Jenkins % (Auto) 7.1, Eos % (Auto) 1.3, Baso % (Auto) 0.4, Neut # (Auto) 4.1, Lymph # (Auto) 1.3, Jenkins # (Auto) 0.4, Eos # (Auto) 0.1, Baso # (Auto) 0.0, Sodium 140, Potassium 4.3, Chloride 107, Carbon Dioxide 27, Anion Gap 10.3, BUN 24 H, Creatinine 1.10 H, Estimated Creat Clear 64, Estimated GFR 48 L, Est GFR ( Amer) 58 L, Glucose 112 H, Calcium 9.4, Total Bilirubin 1.2, AST 40 H, ALT 30, Alkaline Phosphatase 83, Troponin I < 0.01, Total Protein 7.2, Albumin 4.5, Globulin 2.7, Albumin/Globulin Ratio 1.7, Lipase 106 01/04/24 12:18: Troponin I < 0.01 01/04/24 10:29 01/04/24 10:29 Response Orders (Tests/Meds): ED MEDICATIONS Discontinued Medications Generic Name Dose Route Start Last Admin Trade Name Freq PRN Reason Stop Dose Admin Aspirin 324 mg 01/04/24 10:37 01/04/24 10:42 Aspirin 81mg Chewable Tablet PO 01/04/24 10:38 324 mg ONCE ONE Administration ORDERS Category Date Time Status XR chest portable Stat Exams 01/04/24 10:37 Completed Complete Blood Count Auto Diff Stat Lab 01/04/24 10:29 Completed Comprehensive Metabolic Panel Stat Lab 01/04/24 10:29 Completed Lipase Stat Lab 01/04/24 10:29 Completed Troponin I Q3H Lab 01/04/24 12:18 Completed Troponin I Stat Lab 01/04/24 10:29 Completed ECG initial Bess[place] Routine Y 01/04/24 10:22 Completed ECG Data Tracing #1: Attestation: I reviewed this ECG and interpreted as documented below: ECG Narrative: Normal sinus rhythm with a ventricular rate of 63 bpm. Some artifact noted. No obvious ST elevations concerning for STEMI. No significant changes from prior EKG. ECG initial impression date: 01/04/24 ECG initial impression time: 10:23 MDM Narrative Medical Decision Narrative: In summary, this patient is a 78-year-old female presenting to the Emergency Department for evaluation of chest pains. Differential diagnoses considered include but are not limited to ACS, GERD, costochondritis, musculoskeletal strain/sprain, aortic dissection, pneumonia, PE. Ruling out the most morbid conditions drove assessment. On exam, the patient is well-appearing. She is not having symptoms at this time. Vitals are reassuring cardiac telemetry with no hypoxia, tachycardia, or significant hypertension. Given normal vitals and lack of symptoms at this time, doubt aortic pathology or PE. She has not had infectious symptoms to suggest pneumonia. It is possible this is related to GERD/gas pain, as it seemed to improve with belching. Workup included CBC, CMP, troponin, chest x-ray, and EKG. Patient was given 2 chewable aspirins as she already took 2 this morning. EKG is reassuring without significant changes. I independently interpreted x-ray prior to the radiologist read and noted no acute focal consolidation, pneumothorax, or other concerns.. Please see their read for final interpretation. Labs were obtained that demonstrated no acutely concerning abnormalities with negative troponins x 2. On reassessment, patient continues to have no symptoms. She is observed in the emergency department for a period of 3 hours and provided serial troponins and reassessments. On multiple reassessments, she was resting comfortably with no complaints. Vitals are reassuring on cardiac telemetry. 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 She was given strict return precautions and was discharged in stable condition after all questions were answered
[2024-01-04 12:50] LABS: Troponin I < 0.01 ng/ml (0.00-0.034)
== END 2024-01-04 13:24 | disposition home or self-care (01) ==
PROVIDERS: Emergency Provider Emergency Medicine; PCP Nurse Practitioner Family
DX: R07.9 Chest pain, unspecified (principal); M25.512 Pain in left shoulder; I25.10 Atherosclerotic heart disease of native coronary artery without angina pectoris; K21.9 Gastro-esophageal reflux disease without esophagitis
CPT/HCPCS: 71045; 80053; 83690; 84484; 85025; 93005; 99285

== ENCOUNTER 2024-01-15 08:50 | Emergency (ER) | payer MEDICARE, BC, SELFPAY ==
[2024-01-15] VITALS (9 sets, daily range): BP systolic 127–154; BP diastolic 65–119; PULSE 58–62; RESP 12–20; TEMP 36.7–36.8; O2SAT 98–100; BMI 39.4; BMI 39.8
--- NOTE | 2024-01-15 08:52 | ECG_ITS ---
APPROVED REPORT Exam: Resting ECG HR:62 bpm ECG Measurements Heart Rate 62 AXES MI 141 P 56 QRSd 102 QRS 50 QT 402 T -42 QTc 408 Conclusion SINUS RHYTHM POSSIBLE LEFT ATRIAL ENLARGEMENT [-0.1mV P-WAVE IN V1/V2] INCOMPLETE RIGHT BUNDLE BRANCH BLOCK [90+ ms QRS DURATION, TERMINAL R IN V1/V2, 40+ ms S IN I/aVL/V4/V5/V6] MODERATE T-WAVE ABNORMALITY, CONSIDER LATERAL ISCHEMIA [-0.1+ mV T-WAVE IN I/aVL/V5/V6] MODERATE T-WAVE ABNORMALITY, CONSIDER INFERIOR ISCHEMIA [-0.1+ mV T-WAVE IN II/aVF] ABNORMAL ECG UNCONFIRMED REPORT Electronically signed by : NARCISO DOTY, 01/16/2024 07:12:58
--- NOTE | 2024-01-15 08:59 | XR_ITS ---
FINAL REPORT CLINICAL HISTORY: chest pain COMPARISON: 01/04/2024 FINDINGS: A single portable view of the chest was obtained. The heart size and pulmonary vascularity are within normal limits. Prior median sternotomy. No acute pulmonary abnormality is identified. The bony thorax is intact. IMPRESSION: No active cardiopulmonary disease. Reviewed, Interpreted and Dictated by Mt Kapadia III, MD Transcribed by Mary Rayo Authenticated and [facility]
[2024-01-15 09:06] LABS: Basophils % 0.5 % (0.1-2.0); Eosinophils # 0.1 K/mm3 (0.0-0.4); Eosinophils % 1.5 % (0.1-12.0); Hematocrit 43.6 % (37.0-47.0); Hemoglobin 14.2 g/dL (12.2-16.2); Lymphocytes # 1.4 K/mm3 (0.7-4.5); Lymphocytes % 21.6 % (10-50); Mean Corpuscular HGB Conc 32.5 g/dL (31.8-35.4); Mean Corpuscular Hemoglobin 33.7 pg (27.0-31.2); Mean Corpuscular Volume 103.7 fl (81-99); Mean Platelet Volume 9.5 fl (7.4-10.4); Monocytes # 0.5 K/mm3 (0.1-1.0); Neutrophils # 4.5 K/mm3 (1.8-7.8); Neutrophils % 69.3 % (37.0-80.0); Platelet Count 130 K/mm3 (142-424); Red Cell Distribution Width 13.8 % (11.5-17.5); White Blood Count 6.5 K/mm3 (4.8-10.8)
--- NOTE | 2024-01-15 09:08 | PC.NURSE ---
Dr. Escamilla at BS for pt eval
[2024-01-15 09:10] LABS: Anion Gap 11.9 mEq/L (5-15); Blood Urea Nitrogen 14 mg/dl (7-17); Calcium 9.6 mg/dl (8.4-10.2); Carbon Dioxide 29 mmol/L (22.0-30.0); Chloride 105 mmol/L (98-107); Creatinine Clearance Estimated 63 mL/min (50-200); Estimated Glomerular Filt Rate 48 ml/min (>60); GFR (African American) 58 ML/MIN (>60); Glucose 109 mg/dl (74-100); Potassium 3.9 mmoL/L (3.5-5.1); Sodium 142 mmol/L (136-145)
--- NOTE | 2024-01-15 09:10 | PC.NURSE ---
RAD at for CXR
--- NOTE | 2024-01-15 09:11 | ED_ITS ---
Discharge Plan Disposition Patient Disposition: Home, Self-Care Condition: Good Prescriptions Prescriptions: No Action atorvastatin 10 MG tablet 10 mg PO HS oxybutynin chloride 10 MG tablet extended release 24hr 10 mg PO DAILY alendronate 70 MG tablet 70 mg PO WEEKLY alprazolam 0.25 MG tablet 0.25 mg PO TIDP PRN (Reason: Anxiety) cevimeline 30 MG capsule 30 mg PO TID hydroxychloroquine 200 MG tablet 200 mg PO BID Patient Comments: 1 a day. 2 the next day colchicine 0.6 MG tablet 0.6 mg PO DAILY ondansetron 4 MG tablet,disintegrating 4 mg PO BIDP PRN (Reason: Nausea) Qty: 10 0RF calcium polycarbophil 625 MG tablet 625 mg PO DAILY nitroglycerin 0.4 MG tablet, sublingual 0.4 mg SL Q5MINP PRN (Reason: Chest Pain) aspirin 81 MG tablet,delayed release (DR/EC) 81 mg PO DAILY famotidine 20 MG tablet 20 mg PO HS furosemide 20 MG tablet 20 mg PO DAILY colestipol 1 GM tablet 1 gm PO BID atenolol 50 MG tablet 50 mg PO DAILY cyclosporine 1 EACH dropperette 1 drop OP DAILY [id number] 1 EACH capsule,delayed release(DR/EC) 1 each PO AC Referrals Follow up/Referrals: Catherine Saha APRN [Primary Care Provider] - See instructions Activity Restrictions/Add. Instructions Additional Instructions/Restrictions: You were seen in the ED today due to chest pain. Follow up with your primary care provider and account services representative. Return to the ED if symptoms worsen or if new concerning symptoms arise. Clinical Impressions Clinical Impression: Chest pain Qualifiers: Chest pain type: unspecified Qualified Code(s): R07.9 - Chest pain, unspecified Discharge ED Provider: John Paul Escamilla General Adult HPI General Chief complaint: Chest Pain Stated complaint: Chest Pain Time Seen by Provider: 01/15/24 09:00 History of Present Illness HPI narrative: Patient is a 78-year-old female with history of CAD s/p CABG on aspirin, GERD, HTN, HLD who presents today due to chest pain. Patient states this morning she began having left-sided chest discomfort. States she has had similar symptoms due to her GERD in the past so she tried drinking a Sprite. She felt better after burping. After laying down for a while and getting back up, she began to feel discomfort again, prompting her visit this morning. States she had similar episode of left-sided chest discomfort last week and was evaluated in the ED at that time. States today's episode was not as severe as what she felt them. She describes her symptoms as a bloating and heartburn-like sensation. States she took 324 mg aspirin prior to arrival. Currently she states she feels well although the bloating sensation is persistent. She denies any shortness of breath or difficulty breathing. Denies any recent illness, fever/chills, nausea/vomiting, abdominal pain, dysuria, diarrhea. Related Data Home Medications Medication Instructions Recorded Confirmed alendronate 70 mg tablet 70 mg PO WEEKLY Osteoporosis 01/06/19 01/15/24 alprazolam 0.25 mg tablet 0.25 mg PO TIDP PRN Anxiety 01/06/19 01/15/24 atorvastatin 10 mg tablet 10 mg PO HS Cholesterol 01/06/19 01/15/24 cevimeline 30 mg capsule 30 mg PO TID dry mouth 01/06/19 01/15/24 colchicine 0.6 mg tablet 0.6 mg PO DAILY gout 01/06/19 01/15/24 hydroxychloroquine 200 mg tablet 200 mg PO BID Arthritis 01/06/19 01/15/24 oxybutynin chloride 10 mg 10 mg PO DAILY BLADDER 01/06/19 01/15/24 tablet,extended release 24 hr calcium polycarbophil 625 mg tablet 625 mg PO DAILY Supplement 08/30/19 01/15/24 nitroglycerin 0.4 mg sublingual 0.4 mg SL Q5MINP PRN Chest Pain 08/30/19 01/15/24 tablet aspirin 81 mg tablet,delayed 81 mg PO DAILY heart health 01/04/20 01/15/24 release atenolol 50 mg tablet 50 mg PO DAILY Hypertension 01/04/20 01/15/24 colestipol 1 gram tablet 1 gm PO BID Cholesterol 01/04/20 01/15/24 cyclosporine 0.05 % eye drops in a 1 drop OP DAILY dry eyes 01/04/20 01/15/24 dropperette famotidine 20 mg tablet 20 mg PO HS GERD 01/04/20 01/15/24 furosemide 20 mg tablet 20 mg PO DAILY Fluid 01/04/20 01/15/24 rambjc-yiriqpnj-tastamq 1 each PO AC PANCREATIC 01/04/20 01/15/24 36,000-114,000-180,000 unit INSUFFICIENCY capsule,delay rel Previous Rx's Medication Instructions Recorded ondansetron 4 mg disintegrating 4 mg PO BIDP PRN Nausea #10 tabs 01/04/22 tablet Allergies Allergy/AdvReac Type Severity Reaction Status Date / Time Penicillins Allergy Intermediate Rash Verified 08/30/19 10:35 ibuprofen [From Motrin] Allergy Mild Verified 08/30/19 10:35 sulfamethoxazole Allergy Verified 01/04/22 10:35 [From Bactrim] trimethoprim [From Bactrim] Allergy Verified 01/04/22 10:35 PFSH PFS Disclaimer: The information contained in this section may have been updated after the patient was seen, as this information can be updated by other users. Social History Smoking Status: Never smoker alcohol intake: never substance use type: denies use current occupational status: retired Travel in the last 8 weeks: None caffeine: Yes ROS Obtained: Yes All systems reviewed & no additional complaints except as documented Constitutional Constitutional: Denies chills, Denies fever(s), Denies headache(s) and Denies poor appetite ENT Ears, Nose, Mouth, and Throat: Denies dizziness and Denies headache(s) Cardiovascular Cardiovascular: Reports chest pain and Denies dyspnea Respiratory Respiratory: Denies shortness of breath, Denies cough and Denies dyspnea Gastrointestinal Gastrointestingal: Reports bloating; Denies abdominal pain, diarrhea, nausea or vomiting Musculoskeletal Musculoskeletal: Denies back pain Neurologic Neurologic: Denies dizziness and Denies headache(s) Physical Exam General General appearance: alert and in no apparent distress Head Head exam: atraumatic, normocephalic and normal inspection Eye Eye exam: Present normal appearance, PERRL and EOMI ENT ENT exam: Present normal exam, normal oropharynx, mucous membranes moist, TM's normal bilaterally and normal external ear exam Neck Neck exam: Present normal inspection, full ROM and trachea midline; Absent meningismus or lymphadenopathy Chest Chest inspection: Present normal inspection and symmetric chest wall rise; Absent tenderness Respiratory Respiratory exam: Present normal lung sounds bilaterally; Absent respiratory distress Cardiovascular Cardiovascular exam: Present regular rate and normal rhythm; Absent JVD Abdominal Exam Abdominal exam: Present soft and normal bowel sounds; Absent distention, tenderness or guarding Extremities Exam Extremities exam: Present normal inspection, full ROM and normal capillary refill; Absent calf tenderness Back Exam Back exam: Present normal inspection; Absent tenderness Neurological Exam Neurological exam: Present alert and oriented X3 Psychiatric Psychiatric exam: Present normal affect and normal mood Skin Skin exam: Present warm, dry, intact and normal color Lymphatic Lymphatic Findings: no adenopathy Medical Decision Making Medical Records Medical records reviewed: Yes I reviewed the patient's medical records. Earl Inquiry Pt receiving controlled substance: No Earl was queried for this patient: No Vital Signs: 01/15/24 08:51 01/15/24 08:58 01/15/24 09:01 Temperature 98.2 F Temperature Source Oral Pulse Rate 60 62 Pulse Rate [Right] 60 Respiratory Rate 17 20 12 Blood Pressure 141/65 H 136/77 Blood Pressure [Right Arm] 141/65 H Blood Pressure Mean Blood Pressure Mean [Right Arm] 90 Blood Pressure Source Blood Pressure Source [Right Arm] Automatic Cuff Blood Pressure Position 02 Sat by Pulse Oximetry 99 99 99 Oxygen Delivery Method Room Air Room Air Room Air 01/15/24 09:31 01/15/24 10:00 01/15/24 11:00 Temperature Temperature Source Pulse Rate 59 L 58 L 59 L Pulse Rate [Right] Respiratory Rate 13 16 13 Blood Pressure 127/66 145/75 H 139/72 Blood Pressure [Right Arm] Blood Pressure Mean Blood Pressure Mean [Right Arm] Blood Pressure Source Blood Pressure Source [Right Arm] Blood Pressure Position 02 Sat by Pulse Oximetry 98 98 100 Oxygen Delivery Method Room Air Room Air Room Air 01/15/24 11:33 01/15/24 12:01 01/15/24 12:36 Temperature 98.0 F Temperature Source Oral Pulse Rate 60 62 62 Pulse Rate [Right] Respiratory Rate 18 18 18 Blood Pressure 127/111 H 143/119 H 154/81 H Blood Pressure [Right Arm] Blood Pressure Mean 114 126 Blood Pressure Mean [Right Arm] Blood Pressure Source Automatic Cuff Blood Pressure Source [Right Arm] Blood Pressure Position Sitting 02 Sat by Pulse Oximetry 100 100 Oxygen Delivery Method Room Air Lab Data Lab Results 01/15/24 08:55: WBC 6.5, RBC 4.20, Hgb 14.2, Hct 43.6, MCV 103.7 H, MCH 33.7 H, MCHC 32.5, RDW 13.8, Plt Count 130 L, MPV 9.5, Neut % (Auto) 69.3, Lymph % (Auto) 21.6, Citrus % (Auto) 7.0, Eos % (Auto) 1.5, Baso % (Auto) 0.5, Neut # (Auto) 4.5, Lymph # (Auto) 1.4, Citrus # (Auto) 0.5, Eos # (Auto) 0.1, Baso # (Auto) 0.0, Sodium 142, Potassium 3.9, Chloride 105, Carbon Dioxide 29, Anion Gap 11.9, BUN 14, Creatinine 1.10 H, Estimated Creat Clear 63, Estimated GFR 48 L, Est GFR ( Amer) 58 L, Glucose 109 H, Calcium 9.6, Troponin I < 0.01, NT-Pro-B Natriuret Pep 1310 H, Lipase 69 01/15/24 11:40: Troponin I < 0.01 01/15/24 08:55 01/15/24 08:55 Orders (Tests/Meds): ED MEDICATIONS Generic Name Dose Route Start Last Admin Trade Name Freq PRN Reason Stop Dose Admin Sodium Chloride 10 ml 01/15/24 08:59 Sodium Chloride 0.9% 10ml Flush Syringe IV 02/14/24 08:58 NEEDED PRN Maintain IV Site ORDERS Category Date Time Status XR chest portable Stat Exams 01/15/24 08:59 Completed BNP [Brain Natriuretic Peptide] Stat Lab 01/15/24 08:55 Completed Basic Metabolic Panel Stat Lab 01/15/24 08:55 Completed Complete Blood Count Auto Diff Stat Lab 01/15/24 08:55 Completed Lipase Stat Lab 01/15/24 08:55 Completed Troponin I Q3H Lab 01/15/24 11:40 Completed Troponin I Q3H Lab 01/15/24 15:00 Ordered Troponin I Stat Lab 01/15/24 08:55 Completed ECG Data Tracing #1: I reviewed this ECG and interpreted as documented below: EKG obtained and read by me sinus rhythm with incomplete right bundle branch block and T wave inversions in inferior and lateral leads similar to prior with no obvious signs of acute ischemia. ECG initial impression date: 01/15/24 ECG initial impression time: 08:54 HEART Score History (anamnesis): Slightly suspicious ECG: Non-specific disturbance Age: >65 years Risk factors: 1-2 risk factors Troponin: </= normal limit HEART Score: 4 Medical Decision Narrative: In summary, patient is a 78-year-old female with history of CAD s/p CABG on aspirin, GERD, HTN, HLD, evaluated in the emergency department today due to chest pain. On arrival, patient is hypertensive but hemodynamically stable. On examination, patient is overall well-appearing and in no distress. Differential diagnosis includes but is not limited to ACS, GERD, anxiety, musculoskeletal pain, PE. Workup initiated including CBC, BMP, BNP, troponin, lipase, CXR. Labs independently interpreted by me and significant for negative troponins, BNP 1300 increased from prior. Imaging independently interpreted by me and significant for no acute findings. On reevaluation, patient remains resting comfortably in no distress. Given stability of vital signs and the patient is asymptomatic, very low concern for PE at this time. Given her well appearance and reassuring workup, she is appropriate for discharge at this time. Patient advised to follow-up with her primary care provider and account services representative given increased BNP compared to prior. Additional history was provided by patient's family. I considered the utility of obtaining CT imaging, but decided against this because this would not change management coordinator. I considered the utility of treatment with diuretics, but decided against this because patient is not volume overloaded. I considered admitting the patient to the hospital for further workup, and in shared decision-making with patient, decided on outpatient follow-up. Critical Care Critical Care Time Critical Care Time: No
[2024-01-15 09:24] LABS: Troponin I < 0.01 ng/ml (0.00-0.034)
[2024-01-15 09:31] LABS: Lipase 69 U/L (23-300)
[2024-01-15 09:41] LABS: NT Pro Brain Natriuretic Pep. 1310 pg/mL (0-450)
--- NOTE | 2024-01-15 10:18 | PC.NURSE ---
Rounded on pt. No needs voiced at this time. Call light within reach.
--- NOTE | 2024-01-15 10:39 | PC.NURSE ---
Rounded on pt to see if they had any needs. Pt stated that she needed to go to the bathroom so i assisted her to the bathroom. Wlaked pt back to the room and hokked them back up. No other needs at this time
[2024-01-15 12:18] LABS: Troponin I < 0.01 ng/ml (0.00-0.034)
--- NOTE | 2024-01-15 12:29 | PC.NURSE ---
ED MD AT BEDSIDE TO REASSESS PT
== END 2024-01-15 12:48 | disposition home or self-care (01) ==
PROVIDERS: Emergency Provider Student in an Organized Health Care Education/Training Program; PCP Nurse Practitioner Family
DX: R07.89 Other chest pain (principal); K21.9 Gastro-esophageal reflux disease without esophagitis; R94.31 Abnormal electrocardiogram [ECG] [EKG]; I11.9 Hypertensive heart disease without heart failure; I25.10 Atherosclerotic heart disease of native coronary artery without angina pectoris; E78.5 Hyperlipidemia, unspecified; Z95.1 Presence of aortocoronary bypass graft; R79.89 Other specified abnormal findings of blood chemistry
CPT/HCPCS: 71045; 80048; 83690; 83880; 84484; 85025; 93005; 99284

== ENCOUNTER 2024-01-19 08:37 | Outpatient (CLI) | payer MEDICARE, BC, SELFPAY ==
--- NOTE | 2024-01-19 | CA_ITS ---
APPROVED REPORT EXAM: Comprehensive 2D, Doppler, and color-flow Echocardiogram Registered Respiratory Technician: Delores William RT(R) Ht: 5 ft 0 in Wt: 203lbs BSA: 1.88 BP: 154/81 mmHg Indications: SOB, edema, CP, edema, hx CABG 2D Dimensions LA Volume 49.70 mL LA Volume Index 26.030130 mL/m2 (M/F) 16-34 EF AP4 53.90 % GL Strain -17.3 % M-Mode Dimensions RVDd 3.16 cm (0.9-2.6) LA Diam 5.00 cm (1.9-4.0) LVDd 3.76 cm (3.5-5.7) LVDs 2.84 cm (3.5-5.7) IVSd 1.04 cm (0.6-1.1) PWd 0.60 cm (0.6-1.1) EF (Teich) 49.30% FS 24.50% EDV (Teich) 60.40 mL ESV (Teich) 30.60 mL LV Diastology E Decel Time 220 (160-240 msec) E/A Ratio 1.2 Mitral Valve MV E Max Efrain. 76.0 (40-130 cm/s) MV A Velocity 66.0 (40-130 cm/s) E/A Ratio 1.15 MV PHT 64.0 ms Left Ventricle The left ventricle is normal size. The left ventricular systolic function is normal. The left ventricular ejection fraction is within the normal range. There is increased LV wall thickness. There is normal LV segmental wall motion. The left ventricular diastolic function is normal. LVEF is 55%. Right Ventricle The right ventricle is normal size. The right ventricular systolic function is normal. Atria The left atrium is mildly dilated. The right atrium size is normal. There is no Doppler evidence of interatrial shunt. The aortic valve is mildly thickened. Aortic Valve There is no aortic valvular stenosis. No aortic regurgitation is present. Mitral Valve The mitral valve leaflets are mildly thickened. No evidence of mitral valve stenosis. Mild mitral regurgitation. Tricuspid Valve The tricuspid valve leaflets are thin and pliable. Trace tricuspid regurgitation. There is insufficient TR jet to estimate RVSP. Pulmonic Valve The pulmonary valve is normal in structure. Trace pulmonic regurgitation. Great Vessels The aortic root is normal in size. The ascending aorta is not well-visualized. The IVC is not well-visualized. Pericardium There is no pericardial effusion. Conclusion Normal biventricular systolic function. Mild LA dilation. Mild MR. Electronically signed by : Shruthi Pinto MD 01/22/2024 22:24:03
== END 2024-01-19 23:59 ==
LOC: RT 08:37
PROVIDERS: PCP Internal Medicine Adolescent Medicine; Visit Provider Internal Medicine Adolescent Medicine
DX: R06.02 Shortness of breath (principal); R60.0 Localized edema
CPT/HCPCS: 93306

== ENCOUNTER 2024-01-19 17:43 | Emergency (ER) | payer MEDICARE, BC, SELFPAY ==
[2024-01-19] VITALS (10 sets, daily range): BP systolic 77–152; BP diastolic 55–77; PULSE 58–65; RESP 14–20; TEMP 36.7; O2SAT 96–100; BMI 47.5
--- NOTE | 2024-01-19 17:43 | ECG_ITS ---
APPROVED REPORT Exam: Resting ECG HR:59 bpm ECG Measurements Heart Rate 59 AXES IA 148 P 70 QRSd 121 QRS 56 QT 426 T 267 QTc 425 Conclusion SINUS BRADYCARDIA RIGHT BUNDLE BRANCH BLOCK T wave inversions V3 through V6 as well as inferior leads II, 3, aVF. This is an old finding from previous Electronically signed by : BREANNA FORTE, 01/19/2024 21:46:13
--- NOTE | 2024-01-19 17:59 | PC.NURSE ---
dr carvalho at bedside
--- NOTE | 2024-01-19 18:12 | XR_ITS ---
PROCEDURE INFORMATION: Exam: XR Chest Exam date and time: 01/19/2024 6:13 PM Age: 78 years old Clinical indication: Other: Chest pain; Additional info: Cp TECHNIQUE: Imaging protocol: Radiologic exam of the chest. Views: 1 view. COMPARISON: CR XR CHEST PORTABLE 01/15/2024 9:02 AM FINDINGS: Lungs: Unremarkable. No consolidation. Pleural spaces: Unremarkable. No pleural effusion. No pneumothorax. Heart/Mediastinum: Cardiomegaly with post CABG changes redemonstrated. Bones/joints: Unremarkable. IMPRESSION: Stable chest x-ray with no acute disease.
--- NOTE | 2024-01-19 18:23 | ED_ITS ---
Discharge Plan Disposition Patient Disposition: Home, Self-Care Prescriptions Prescriptions: New cefdinir 300 mg capsule 300 mg PO BID 7 Days Qty: 14 0RF potassium chloride 20 mEq tablet extended release 20 meq PO DAILY Qty: 30 0RF No Action atorvastatin 10 MG tablet 10 mg PO HS oxybutynin chloride 10 MG tablet extended release 24hr 10 mg PO DAILY alendronate 70 MG tablet 70 mg PO WEEKLY alprazolam 0.25 MG tablet 0.25 mg PO TIDP PRN (Reason: Anxiety) cevimeline 30 MG capsule 30 mg PO TID hydroxychloroquine 200 MG tablet 200 mg PO BID Patient Comments: 1 a day. 2 the next day colchicine 0.6 MG tablet 0.6 mg PO DAILY ondansetron 4 MG tablet,disintegrating 4 mg PO BIDP PRN (Reason: Nausea) Qty: 10 0RF calcium polycarbophil 625 MG tablet 625 mg PO DAILY nitroglycerin 0.4 MG tablet, sublingual 0.4 mg SL Q5MINP PRN (Reason: Chest Pain) aspirin 81 MG tablet,delayed release (DR/EC) 81 mg PO DAILY famotidine 20 MG tablet 20 mg PO HS furosemide 20 MG tablet 20 mg PO DAILY colestipol 1 GM tablet 1 gm PO BID atenolol 50 MG tablet 50 mg PO DAILY cyclosporine 1 EACH dropperette 1 drop OP DAILY visglc-oqddoyry-jqsuqsy 1 EACH capsule,delayed release(DR/EC) 1 each PO AC Referrals Follow up/Referrals: José Miguel Verde MD [Primary Care Provider] - See instructions Activity Restrictions/Add. Instructions Additional Instructions/Restrictions: Call your family doctor to establish care for this visit to the emergency department and schedule follow-up within 48 hours to ensure improvement. If you have any worsening of your condition or any other concerning signs or symptoms, return to the emergency department or your primary care doctor for further evaluation. Cefdinir twice daily for 5 days to treat UTI. Take potassium daily while on water pill. 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 Also discussed possible heart monitor with them in the setting of these palpitations. Clinical Impressions Clinical Impression: Heart palpitations, Chest pain Discharge ED Provider: Delgado Chapman [facility] General Chief Complaint: Chest Pain Stated Complaint: chest pain Time Seen by Provider: 01/19/24 17:43 Mode of Arrival: EMS Source of Information: Patient Limitations: No Limitations Description of Symptoms (Recalled from ER Triage Doc. by RN): pt c/o fluttering and pounding her her chest that is intermittant and is acute on chronic. pt is currently being worked up by Cardiology. pt had an ECHO here today but does not have the results. pt states this episode seems stronger than before. pt states she took 2doses of SL nitro and 0.25mg of xanax around 1630. pt states she is feeling some better at this time. History of Present Illness HPI narrative: This is a 78-year-old female history of hypertension, hyperlipidemia, CAD status post three-vessel CABG presenting with chest pain. Patient states that she started having fluttering in chest pain overnight, 01/17 into 01/18. Left-sided radiates to her shoulder. No associated shortness of breath, diaphoresis, nausea or vomiting. She states that she is also been having epigastric burning that she has been attributing to her acid reflux. Recently had echo here at [facility] and is being worked up by cardiology. Patient developed chest pain a couple hours prior to this visit, took 2 sublingual nitroglycerin, thencame to the ED for further evaluation. Related Data Home Medications Medication Instructions Recorded Confirmed alendronate 70 mg tablet 70 mg PO WEEKLY Osteoporosis 01/06/19 01/15/24 alprazolam 0.25 mg tablet 0.25 mg PO TIDP PRN Anxiety 01/06/19 01/15/24 atorvastatin 10 mg tablet 10 mg PO HS Cholesterol 01/06/19 01/15/24 cevimeline 30 mg capsule 30 mg PO TID dry mouth 01/06/19 01/15/24 colchicine 0.6 mg tablet 0.6 mg PO DAILY gout 01/06/19 01/15/24 hydroxychloroquine 200 mg tablet 200 mg PO BID Arthritis 01/06/19 01/15/24 oxybutynin chloride 10 mg 10 mg PO DAILY BLADDER 01/06/19 01/15/24 tablet,extended release 24 hr calcium polycarbophil 625 mg tablet 625 mg PO DAILY Supplement 08/30/19 01/15/24 nitroglycerin 0.4 mg sublingual 0.4 mg SL Q5MINP PRN Chest Pain 08/30/19 01/15/24 tablet aspirin 81 mg tablet,delayed 81 mg PO DAILY heart health 01/04/20 01/15/24 release atenolol 50 mg tablet 50 mg PO DAILY Hypertension 01/04/20 01/15/24 colestipol 1 gram tablet 1 gm PO BID Cholesterol 01/04/20 01/15/24 cyclosporine 0.05 % eye drops in a 1 drop OP DAILY dry eyes 01/04/20 01/15/24 dropperette famotidine 20 mg tablet 20 mg PO HS GERD 01/04/20 01/15/24 furosemide 20 mg tablet 20 mg PO DAILY Fluid 01/04/20 01/15/24 jgpwoc-rvuqcurv-iletsmz 1 each PO AC PANCREATIC 01/04/20 01/15/24 36,000-114,000-180,000 unit INSUFFICIENCY capsule,delay rel Previous Rx's Medication Instructions Recorded ondansetron 4 mg disintegrating 4 mg PO BIDP PRN Nausea #10 tabs 01/04/22 tablet cefdinir 300 mg capsule 300 mg PO BID 7 days #14 caps 01/19/24 potassium chloride 20 mEq 20 meq PO DAILY #30 tabs 01/19/24 tablet,extended release Allergies Allergy/AdvReac Type Severity Reaction Status Date / Time Penicillins Allergy Intermediate Rash Verified 08/30/19 10:35 ibuprofen [From Motrin] Allergy Mild Verified 08/30/19 10:35 sulfamethoxazole Allergy Verified 01/04/22 10:35 [From Bactrim] trimethoprim [From Bactrim] Allergy Verified 01/04/22 10:35 PFSH [facility] Disclaimer: The information contained in this section may have been updated after the patient was seen, as this information can be updated by other users. Social History Smoking Status: Never smoker alcohol intake: never substance use type: denies use current occupational status: retired Travel in the last 8 weeks: None caffeine: Yes ROS Obtained: Yes All systems reviewed & no additional complaints except as documented Physical Exam General General appearance: alert Neck Neck exam: Present trachea midline Chest Chest inspection: Present normal inspection and symmetric chest wall rise Respiratory Respiratory exam: Present normal lung sounds bilaterally; Absent respiratory distress, wheezes, stridor, accessory muscle use or prolonged expiratory phase Cardiovascular Cardiovascular exam: Present regular rate and normal rhythm Extremities Exam Extremities exam: Absent edema Neurological Exam Neurological exam: Present alert, oriented X3 and CN II-XII intact Skin Skin exam: Present warm and dry; Absent cyanosis, diaphoresis or pallor HEART Score HEART Score HEART Score assessment performed?: Yes HEART Score: 6 Critical Care Critical Care Time Critical Care Time: No Medical Decision Making Medical Records Medical records reviewed: Yes I reviewed the patient's medical records. Earl Inquiry Pt receiving controlled substance: No Earl was queried for this patient: No Vital Signs Vital Signs: 01/19/24 17:47 01/19/24 18:01 01/19/24 18:31 Temperature 98.1 F Temperature Source Oral Pulse Rate 58 L 58 L Pulse Rate [Left] 59 L Respiratory Rate 14 20 Blood Pressure 134/71 112/77 Blood Pressure [Right Arm] 152/69 H Blood Pressure Mean 81 90 Blood Pressure Mean [Right Arm] 96 02 Sat by Pulse Oximetry 96 98 99 Oxygen Delivery Method Room Air 01/19/24 19:01 01/19/24 19:30 01/19/24 20:01 Temperature Temperature Source Pulse Rate 60 63 60 Pulse Rate [Left] Respiratory Rate Blood Pressure 77/57 L 130/75 125/67 Blood Pressure [Right Arm] Blood Pressure Mean 63 93 Blood Pressure Mean [Right Arm] 02 Sat by Pulse Oximetry 98 97 100 Oxygen Delivery Method 01/19/24 20:30 Temperature Temperature Source Pulse Rate 61 Pulse Rate [Left] Respiratory Rate Blood Pressure 108/70 L Blood Pressure [Right Arm] Blood Pressure Mean Blood Pressure Mean [Right Arm] 02 Sat by Pulse Oximetry 96 Oxygen Delivery Method Lab Data Labs: Lab Results 01/19/24 17:45: WBC 5.0, RBC 4.27, Hgb 14.5, Hct 44.0, MCV 103.1 H, MCH 34.0 H, MCHC 33.0, RDW 13.7, Plt Count 128 L, MPV 9.7, Neut % (Auto) 54.0, Lymph % (Auto) 32.6, Ocean % (Auto) 10.7 H, Eos % (Auto) 1.9, Baso % (Auto) 0.9, Neut # (Auto) 2.7, Lymph # (Auto) 1.6, Ocean # (Auto) 0.5, Eos # (Auto) 0.1, Baso # (Auto) 0.0, Sodium 141, Potassium 3.4 L, Chloride 103, Carbon Dioxide 29, Anion Gap 12.4, BUN 26 H, Creatinine 1.10 H, Estimated Creat Clear 34, Estimated GFR 48 L, Est GFR ( Amer) 58 L, Glucose 122 H, Calcium 9.2, Total Bilirubin 1.2, AST 46 H, ALT 30, Alkaline Phosphatase 80, Troponin I < 0.01, NT-Pro-B Natriuret Pep 668 H, Total Protein 7.3, Albumin 4.8, Globulin 2.5, A lbumin/Globulin Ratio 1.9 H, Lipase 65 01/19/24 18:49: Urine Color Yellow, Urine Appearance Clear, Urine pH 6.0, Ur Specific [place] 1.010, Urine Protein Negative, Urine Glucose (UA) Negative, Urine Ketones Negative, Urine Blood Trace-i, Urine Nitrate Negative, Urine Bilirubin Negative, Urine Urobilinogen 0.2, Ur Leukocyte Esterase 2+ A, Urine RBC Occasional, Urine WBC 20-50, Ur Squamous Epith Cells 10-20, Urine Bacteria 3+ 01/19/24 17:45 01/19/24 17:45 Response Orders (Tests/Meds): ED MEDICATIONS Discontinued Medications Generic Name Dose Route Start Last Admin Trade Name Freq PRN Reason Stop Dose Admin Aspirin 324 mg 01/19/24 18:12 01/19/24 18:34 Aspirin 81mg Chewable Tablet PO 01/19/24 18:13 324 mg ONCE ONE Administration Cefdinir 300 mg 01/19/24 20:11 01/19/24 20:48 Cefdinir 300mg Capsule PO 01/19/24 20:12 300 mg ONCE ONE Administration Potassium Chloride 20 meq 01/19/24 21:08 Potassium Chloride 20meq Tab PO 01/19/24 21:09 ONCE ONE ORDERS Category Date Time Status CXR --portable [XR chest portable] Stat Exams 01/19/24 18:12 Completed Brain Natriuretic Peptide Stat Lab 01/19/24 17:45 Completed CBC w/Auto Diff [Complete Blood Count Auto Diff] Stat Lab 01/19/24 17:45 Completed CMP [Comprehensive Metabolic Panel] Stat Lab 01/19/24 17:45 Completed Lipase Stat Lab 01/19/24 17:45 Completed Magnesium Stat Lab 01/19/24 17:45 Received Trop I [Troponin I] Stat Lab 01/19/24 17:45 Completed Troponin I Q3H Lab 01/19/24 20:52 Received Troponin I Q3H Lab 01/20/24 00:15 Ordered UA [Urinalysis and Microscopic] Stat Lab 01/19/24 18:49 Completed Urine Culture Stat Micro 01/19/24 18:49 Received MDM Narrative Medical Decision Narrative: This is a 78-year-old female history of hypertension, hyperlipidemia, CAD status post three-vessel CABG presenting with chest pain. Patient states that she started having fluttering in chest pain overnight, 01/17 into 01/18. Left-sided radiates to her shoulder. No associated shortness of breath, diaphoresis, nausea or vomiting. She states that she is also been having epigastric burning that she has been attributing to her acid reflux. Recently had echo here at [facility] and is being worked up by cardiology. Patient developed chest pain a couple hours prior to this visit, took 2 sublingual nitroglycerin, thencame to the ED for further evaluation. History obtained with patient and family. On arrival, patient hemodynamically stable, afebrile, normotensive, but mildly bradycardic. Neurologically intact. Lungs are clear to auscultation, cardiac exam nonfocal. Lower extremity edema mild, but nonpitting. Differential includes acid reflux, microvascular coronary artery disease, CHF, ACS, [place], coronary artery dissection, pneumothorax, PE, dissection, pericarditis, myocarditis, pneumothorax, aortic aneurysm, pneumonia, bronchitis, among others. Patient was given 325 mg aspirin for symptomatic management and correction of underlying abnormalities. Independent interpretation of workup demonstrated no leukocytosis. Mild hypokalemia 3.4, this was repleted with 20 mg p.o. Stable kidney function with creatinine 1.1 LFTs nonactionable. Delta troponin negative. BNP elevated at 670, but this is downtrending from most recent visit as a result of Lasix. Lipase negative. Patient does have urinary tract infection on UA. Chest x-ray without acute cardiopulmonary airspace disease. No evidence of edema. See radiology read for full review of final results. EKG independently interpreted and significant for sinus bradycardia 59 bpm. She does have T wave inversions in V4, V5, V6, 2, 3, and aVF. No reciprocal change. OK, QRS, QT intervals within normal limits. On evaluation of previous EKG, this appears normal and stable for patient. Patient was placed in observation beginning at 5:30 PM in order to rule out evolving [place] with delta troponins and determine need for admission versus home- going, since symptoms began just before arrival. The patient was provided serial exams, potassium, monitoring while awaiting results. Independent interpretation of results demonstrated normal, insignificant delta troponin 0.01. On reevaluation, patient resting comfortably bed. At this time, I feel patient is appropriate for discharge. Total observation time 4 hours.
[2024-01-19] MEDS: ASPIRIN 81MG CHEWABLE TABLET 324 MG PO (18:34)
[2024-01-19 18:42] LABS: Basophils % 0.9 % (0.1-2.0); Eosinophils # 0.1 K/mm3 (0.0-0.4); Eosinophils % 1.9 % (0.1-12.0); Hemoglobin 14.5 g/dL (12.2-16.2); Lymphocytes # 1.6 K/mm3 (0.7-4.5); Lymphocytes % 32.6 % (10-50); Mean Corpuscular Volume 103.1 fl (81-99); Mean Platelet Volume 9.7 fl (7.4-10.4); Monocytes # 0.5 K/mm3 (0.1-1.0); Monocytes % 10.7 % (1.7-9.3); Neutrophils # 2.7 K/mm3 (1.8-7.8); Platelet Count 128 K/mm3 (142-424); Red Blood Count 4.27 M/mm3 (4.20-5.40); Red Cell Distribution Width 13.7 % (11.5-17.5)
[2024-01-19 18:46] LABS: Alanine Aminotransferase 30 U/L (12-78); Albumin Level 4.8 g/dl (3.5-5.0); Albumin/Globulin Ratio 1.9 (1.1-1.8); Alkaline Phosphatase 80 U/L (38-126); Anion Gap 12.4 mEq/L (5-15); Aspartate Amino Transferase 46 U/L (14-36); Bilirubin,Total 1.2 mg/dl (0.2-1.3); Blood Urea Nitrogen 26 mg/dl (7-17); Calcium 9.2 mg/dl (8.4-10.2); Carbon Dioxide 29 mmol/L (22.0-30.0); Chloride 103 mmol/L (98-107); Creatinine Clearance Estimated 34 mL/min (50-200); Estimated Glomerular Filt Rate 48 ml/min (>60); GFR (African American) 58 ML/MIN (>60); Globulin 2.5 g/dL (1.3-3.2); Glucose 122 mg/dl (74-100); Lipase 65 U/L (23-300); Potassium 3.4 mmoL/L (3.5-5.1); Sodium 141 mmol/L (136-145); Total Protein,Serum 7.3 g/dl (6.3-8.2)
[2024-01-19 18:57] LABS: NT Pro Brain Natriuretic Pep. 668 pg/mL (0-450)
[2024-01-19 18:58] LABS: Microscopic, Urine URINE MICROSCOPIC (MICROSCOPIC)
[2024-01-19 18:59] LABS: Appearance,Urine CLEAR (Clear); Bilirubin,Urine Negative (Negative); Blood, Urine TRACE-I (Negative); Color,Urine YELLOW (Yellow); Glucose,Urine (UA) Negative (Negative); Ketones,Urine Negative (Negative); Leukocyte Esterase,Urine 2+ (Negative); Nitrate,Urine Negative (Negative); Protein,Urine Negative (Negative); Urobilinogen,Urine 0.2 EU/dl (0.2)
[2024-01-19 19:00] LABS: Troponin I < 0.01 ng/ml (0.00-0.034)
[2024-01-19 19:30] LABS: Bacteria,Urine 3+ /lpf; RBC,Urine Occasional #/hpf (0-3); WBC,Urine 20-50 #/hpf (0-3)
[2024-01-19] MEDS: CEFDINIR 300MG CAPSULE 300 MG PO (20:48)
[2024-01-19 21:26] LABS: Troponin I < 0.01 ng/ml (0.00-0.034)
[2024-01-19] MEDS: POTASSIUM CHLORIDE 20MEQ TAB 20 MEQ PO (21:28)
== END 2024-01-19 21:40 | disposition home or self-care (01) ==
PROVIDERS: Emergency Provider Emergency Medicine; PCP Internal Medicine Adolescent Medicine
DX: R07.89 Other chest pain; R00.1 Bradycardia, unspecified; I45.19 Other right bundle-branch block; B96.29 Other Escherichia coli [E. coli] as the cause of diseases classified elsewhere; I11.9 Hypertensive heart disease without heart failure; I25.10 Atherosclerotic heart disease of native coronary artery without angina pectoris; E78.5 Hyperlipidemia, unspecified; K21.9 Gastro-esophageal reflux disease without esophagitis; Z95.1 Presence of aortocoronary bypass graft
CPT/HCPCS: 71045; 80053; 81001; 83690; 83735; 83880; 84484; 85025; 87086; 93005; 93306; 99284

== ENCOUNTER 2024-02-06 09:17 | Outpatient (CLI) | payer MEDICARE, BC, SELFPAY | END 2024-02-06 23:59 | LOC: RT 09:18 | PROVIDERS: PCP Internal Medicine Adolescent Medicine; Visit Provider Nurse Practitioner Family | DX: R00.2 Palpitations (principal) | CPT/HCPCS: 93225; 93226 ==

== ENCOUNTER 2024-03-04 19:25 | Emergency (ER) | payer MEDICARE, BC, SELFPAY ==
[2024-03-04] VITALS (9 sets, daily range): BP systolic 102–131; BP diastolic 55–91; PULSE 56–69; RESP 14–18; TEMP 36.7; O2SAT 97–100; BMI 36.7
[2024-03-04 19:51] LABS: Basophils % 0.5 % (0.1-2.0); Eosinophils # 0.1 K/mm3 (0.0-0.4); Eosinophils % 1.1 % (0.1-12.0); Hematocrit 43.7 % (37.0-47.0); Hemoglobin 14.2 g/dL (12.2-16.2); Mean Corpuscular HGB Conc 32.5 g/dL (31.8-35.4); Mean Corpuscular Hemoglobin 33.5 pg (27.0-31.2); Mean Corpuscular Volume 103.2 fl (81-99); Mean Platelet Volume 9.3 fl (7.4-10.4); Monocytes # 0.5 K/mm3 (0.1-1.0); Monocytes % 7.7 % (1.7-9.3); Neutrophils # 4.8 K/mm3 (1.8-7.8); Neutrophils % 74.7 % (37.0-80.0); Platelet Count 130 K/mm3 (142-424); Red Blood Count 4.23 M/mm3 (4.20-5.40); Red Cell Distribution Width 14.3 % (11.5-17.5); White Blood Count 6.5 K/mm3 (4.8-10.8)
[2024-03-04 19:53] LABS: Chloride 107 mmol/L (98-107)
[2024-03-04 19:54] LABS: Potassium 4.1 mmoL/L (3.5-5.1); Sodium 141 mmol/L (136-145)
[2024-03-04 19:56] LABS: Alanine Aminotransferase 24 U/L (12-78); Alkaline Phosphatase 74 U/L (38-126); Anion Gap 10.1 mEq/L (5-15); Aspartate Amino Transferase 36 U/L (14-36); Bilirubin,Total 1.1 mg/dl (0.2-1.3); Blood Urea Nitrogen 24 mg/dl (7-17); Carbon Dioxide 28 mmol/L (22.0-30.0); Creatinine Clearance Estimated 53 mL/min (50-200); Estimated Glomerular Filt Rate 44 ml/min (>60); GFR (African American) 53 ML/MIN (>60)
--- NOTE | 2024-03-04 19:56 | ECG_ITS ---
APPROVED REPORT Exam: Resting ECG HR:52 bpm ECG Measurements Heart Rate 52 AXES MT 141 P 70 QRSd 131 QRS 41 QT 455 T 220 QTc 436 Conclusion SINUS BRADYCARDIA WITH OCCASIONAL VENTRICULAR PREMATURE COMPLEXES RIGHT BUNDLE BRANCH BLOCK [120+ ms QRS DURATION, UPRIGHT V1, 40+ ms S IN I/aVL/V4/V5/V6] unchanged nonspecific ST/T wave changes with some motion artifact Electronically signed by : AJIT JOAQUIN, 03/04/2024 23:55:18
[2024-03-04 19:57] LABS: Albumin Level 4.3 g/dl (3.5-5.0); Albumin/Globulin Ratio 1.7 (1.1-1.8); Calcium 9.5 mg/dl (8.4-10.2); Globulin 2.5 g/dL (1.3-3.2); Glucose 103 mg/dl (74-100); Lipase 78 U/L (23-300); Total Protein,Serum 6.8 g/dl (6.3-8.2)
--- NOTE | 2024-03-04 20:03 | XR_ITS ---
PROCEDURE INFORMATION: Exam: XR Chest Exam date and time: 03/04/2024 8:16 PM Age: 78 years old Clinical indication: Pain; Chest pressure; Additional info: Chest pain TECHNIQUE: Imaging protocol: Radiologic exam of the chest. Views: 1 view. COMPARISON: CR XR CHEST PORTABLE 01/19/2024 6:13 PM FINDINGS: Lungs: No evidence of acute pulmonary disease or infiltrates Pleural spaces: No large effusion or pneumothorax. Heart/Mediastinum: Stable cardiac and mediastinal contours. Vasculature: There are calcifications of the aortic arch. Bones/joints: No evidence of acute osseous abnormalities within the visualized portions of the thoracic spine and ribs. Osseous structures appear appropriate for patient age. The patient is status post median sternotomy. IMPRESSION: No dense parenchymal consolidation, pleural effusion, or pneumothorax.
--- NOTE | 2024-03-04 20:08 | [facility].EDCP ---
Discharge Plan Disposition Patient Disposition: Home, Self-Care Condition: Good Prescriptions Prescriptions: No Action atorvastatin 10 MG tablet 10 mg PO HS oxybutynin chloride 10 MG tablet extended release 24hr 10 mg PO DAILY alendronate 70 MG tablet 70 mg PO WEEKLY alprazolam 0.25 MG tablet 0.25 mg PO TIDP PRN (Reason: Anxiety) cevimeline 30 MG capsule 30 mg PO TID hydroxychloroquine 200 MG tablet 200 mg PO BID Patient Comments: 1 a day. 2 the next day colchicine 0.6 MG tablet 0.6 mg PO DAILY ondansetron 4 MG tablet,disintegrating 4 mg PO BIDP PRN (Reason: Nausea) Qty: 10 0RF calcium polycarbophil 625 MG tablet 625 mg PO DAILY nitroglycerin 0.4 MG tablet, sublingual 0.4 mg SL Q5MINP PRN (Reason: Chest Pain) aspirin 81 MG tablet,delayed release (DR/EC) 81 mg PO DAILY famotidine 20 MG tablet 20 mg PO HS furosemide 20 MG tablet 20 mg PO DAILY colestipol 1 GM tablet 1 gm PO BID atenolol 50 MG tablet 50 mg PO DAILY cyclosporine 1 EACH dropperette 1 drop OP DAILY [id number] 1 EACH capsule,delayed release(DR/EC) 1 each PO AC cefdinir 300 mg capsule 300 mg PO BID 7 Days Qty: 14 0RF potassium chloride 20 mEq tablet extended release 20 meq PO DAILY Qty: 30 0RF Referrals Follow up/Referrals: Provider,Referral, MD [Referring] - See instructions Activity Restrictions/Add. Instructions Additional Instructions/Restrictions: You were evaluated in the emergency department today. At this time, your workup is reassuring. I recommend very close follow-up with your primary care provider as well as security guards dispatcher to further evaluate your chest pain. Return to the emergency department for new or worsening symptoms. Clinical Impressions Clinical Impression: Chest pain Instructions Patient Instructions: DI for Atypical Chest Pain Discharge ED Provider: Pari Eagle General Chief Complaint: Chest Pain Stated Complaint: Pain Time Seen by Provider: 03/04/24 19:28 Mode of Arrival: EMS Source of Information: Patient and EMS Limitations: No Limitations Description of Symptoms (Recalled from ER Triage Doc. by RN): patient to ED via [facility]. Complaints of left sided chest burning x1week. Describes this as intermittent pain that radiates across chest and between shoulder blades. Denies SOA at this time. Recently saw security guards dispatcher this week, no intervention at visit. Pt does have history of anxiety. History of Present Illness HPI narrative: This patient is a 78-year-old female with history of anxiety, obesity, hyperlipidemia, and recurrent chest pain presenting to the emergency department for evaluation with concern for chest pain. Patient reports that she has had intermittent chest pain for a while now. She has been evaluated in the emergency department multiple times over the last several months for similar symptoms. For the last week now, her chest pain has been more of a burning all across her left chest radiating to her back and sometimes across into her right breast. She states that she thought maybe it was breast pain, but she is not sure. She has no rashes or skin changes. She also saw her security guards dispatcher for this, and she said that her security guards dispatcher had looked at a Holter monitor she had recently worn and said that she had some PVCs but otherwise he was not concerned. She mentions the symptoms, but he was not worried about it. She notes that she had the burning for about a week now, and it got worse just prior to coming in. She states that she got her self worked up and got really anxious, and she called EMS thinking that it was her heart. EMS noted her vitals were reassuring and the patient was stable en route. Related Data Home Medications Medication Instructions Recorded Confirmed alendronate 70 mg tablet 70 mg PO WEEKLY Osteoporosis 01/06/19 01/15/24 alprazolam 0.25 mg tablet 0.25 mg PO TIDP PRN Anxiety 01/06/19 01/15/24 atorvastatin 10 mg tablet 10 mg PO HS Cholesterol 01/06/19 01/15/24 cevimeline 30 mg capsule 30 mg PO TID dry mouth 01/06/19 01/15/24 colchicine 0.6 mg tablet 0.6 mg PO DAILY gout 01/06/19 01/15/24 hydroxychloroquine 200 mg tablet 200 mg PO BID Arthritis 01/06/19 01/15/24 oxybutynin chloride 10 mg 10 mg PO DAILY BLADDER 01/06/19 01/15/24 tablet,extended release 24 hr calcium polycarbophil 625 mg tablet 625 mg PO DAILY Supplement 08/30/19 01/15/24 nitroglycerin 0.4 mg sublingual 0.4 mg SL Q5MINP PRN Chest Pain 08/30/19 01/15/24 tablet aspirin 81 mg tablet,delayed 81 mg PO DAILY heart health 01/04/20 01/15/24 release atenolol 50 mg tablet 50 mg PO DAILY Hypertension 01/04/20 01/15/24 colestipol 1 gram tablet 1 gm PO BID Cholesterol 01/04/20 01/15/24 cyclosporine 0.05 % eye drops in a 1 drop OP DAILY dry eyes 01/04/20 01/15/24 dropperette famotidine 20 mg tablet 20 mg PO HS GERD 01/04/20 01/15/24 furosemide 20 mg tablet 20 mg PO DAILY Fluid 01/04/20 01/15/24 [id number] 1 each PO AC PANCREATIC 01/04/20 01/15/24 36,000-114,000-180,000 unit INSUFFICIENCY capsule,delay rel Previous Rx's Medication Instructions Recorded ondansetron 4 mg disintegrating 4 mg PO BIDP PRN Nausea #10 tabs 01/04/22 tablet cefdinir 300 mg capsule 300 mg PO BID 7 days #14 caps 01/19/24 potassium chloride 20 mEq 20 meq PO DAILY #30 tabs 01/19/24 tablet,extended release Allergies Allergy/AdvReac Type Severity Reaction Status Date / Time Penicillins Allergy Intermediate Rash Verified 08/30/19 10:35 ibuprofen [From Motrin] Allergy Mild Verified 08/30/19 10:35 sulfamethoxazole Allergy Verified 01/04/22 10:35 [From Bactrim] trimethoprim [From Bactrim] Allergy Verified 01/04/22 10:35 PFSH PFS Disclaimer: The information contained in this section may have been updated after the patient was seen, as this information can be updated by other users. Social History Smoking Status: Never smoker alcohol intake: never substance use type: denies use current occupational status: retired Travel in the last 8 weeks: None caffeine: Yes ROS Obtained: Yes All systems reviewed & no additional complaints except as documented Physical Exam General General appearance: alert, in no apparent distress and obese Head Head exam: atraumatic and normocephalic Eye Eye exam: Present normal appearance, PERRL and EOMI ENT ENT exam: Present normal exam, normal oropharynx, mucous membranes moist and normal external ear exam Neck Neck exam: Present normal inspection, full ROM and trachea midline; Absent tenderness Chest Chest inspection: Present normal inspection and symmetric chest wall rise; Absent tenderness Respiratory Respiratory exam: Present normal lung sounds bilaterally; Absent respiratory distress, wheezes, stridor or accessory muscle use Cardiovascular Cardiovascular exam: Present normal rhythm and bradycardia Abdominal Exam Abdominal exam: Present soft; Absent distention, tenderness or guarding Extremities Exam Extremities exam: Present normal inspection, full ROM and normal capillary refill; Absent tenderness or edema Back Exam Back exam: Present normal inspection and full ROM; Absent tenderness Neurological Exam Neurological exam: Present alert, oriented X3, CN II-XII intact and normal gait; Absent motor sensory deficit Psychiatric Psychiatric exam: Present normal affect and normal mood Skin Skin exam: Present warm and dry HEART Score HEART Score HEART Score assessment performed?: Yes History (anamnesis): Slightly suspicious ECG: Normal Age: >65 years Risk factors: 3 or more risk factors Troponin: </= normal limit HEART Score: 4 Critical Care Critical Care Time Critical Care Time: No Medical Decision Making Medical Records Medical records reviewed: Yes I reviewed the patient's medical records. Earl Inquiry Pt receiving controlled substance: No Vital Signs Vital Signs: 03/04/24 19:25 03/04/24 19:35 03/04/24 20:01 Temperature 98.1 F Temperature Source Oral Pulse Rate 59 L 59 L Pulse Rate [Right] 59 L Respiratory Rate 18 16 17 Blood Pressure 102/83 L 111/55 L Blood Pressure [Right Arm] 102/83 L Blood Pressure Mean 87 73 Blood Pressure Mean [Right Arm] 89 Blood Pressure Source Blood Pressure Source [Right Arm] Automatic Cuff Blood Pressure Position Blood Pressure Position [Right Arm] Sitting 02 Sat by Pulse Oximetry 98 98 97 Oxygen Delivery Method Room Air Room Air Room Air 03/04/24 20:24 03/04/24 20:30 03/04/24 21:13 Temperature Temperature Source Pulse Rate 60 61 56 L Pulse Rate [Right] Respiratory Rate 18 17 14 Blood Pressure 127/64 129/55 L 117/56 L Blood Pressure [Right Arm] Blood Pressure Mean 85 85 84 Blood Pressure Mean [Right Arm] Blood Pressure Source Blood Pressure Source [Right Arm] Blood Pressure Position Blood Pressure Position [Right Arm] 02 Sat by Pulse Oximetry 99 98 100 Oxygen Delivery Method Room Air Room Air Room Air 03/04/24 21:30 03/04/24 22:00 03/04/24 22:37 Temperature 98.0 F Temperature Source Oral Pulse Rate 69 59 L 56 L Pulse Rate [Right] Respiratory Rate 15 14 16 Blood Pressure 121/91 H 131/64 127/70 Blood Pressure [Right Arm] Blood Pressure Mean 101 94 Blood Pressure Mean [Right Arm] Blood Pressure Source Automatic Cuff Blood Pressure Source [Right Arm] Blood Pressure Position Sitting Blood Pressure Position [Right Arm] 02 Sat by Pulse Oximetry 98 100 Oxygen Delivery Method Room Air Room Air Room Air Lab Data Labs: Lab Results 03/04/24 19:15: WBC 6.5, RBC 4.23, Hgb 14.2, Hct 43.7, MCV 103.2 H, MCH 33.5 H, MCHC 32.5, RDW 14.3, Plt Count 130 L, MPV 9.3, Neut % (Auto) 74.7, Lymph % (Auto) 16.0, Lyman % (Auto) 7.7, Eos % (Auto) 1.1, Baso % (Auto) 0.5, Neut # (Auto) 4.8, Lymph # (Auto) 1.0, Lyman # (Auto) 0.5, Eos # (Auto) 0.1, Baso # (Auto) 0.0, Sodium 141, Potassium 4.1, Chloride 107, Carbon Dioxide 28, Anion Gap 10.1, BUN 24 H, Creatinine 1.20 H, Estimated Creat Clear 53, Estimated GFR 44 L, Est GFR ( Amer) 53 L, Glucose 103 H, Calcium 9.5, Total Bilirubin 1.1, AST 36, ALT 24, Alkaline Phosphatase 74, Troponin I < 0.01, Total Protein 6.8, Albumin 4.3, Globulin 2.5, Albumin/Globulin Ratio 1.7, Lipase 78 03/04/24 21:25: Troponin I < 0.01 03/04/24 19:15 03/04/24 19:15 Response Orders (Tests/Meds): ORDERS Category Date Time Status XR chest portable Stat Exams 03/04/24 20:03 Completed Complete Blood Count Auto Diff Stat Lab 03/04/24 19:15 Completed Comprehensive Metabolic Panel Stat Lab 03/04/24 19:15 Completed Lipase Stat Lab 03/04/24 19:15 Completed Troponin I Q3H Lab 03/04/24 21:25 Completed Troponin I Stat Lab 03/04/24 19:15 Completed ECG Data Tracing #1: Attestation: I reviewed this ECG and interpreted as documented below: ECG Narrative: Sinus bradycardia with a ventricular rate of 52 bpm. Occasional PVCs. Right bundle branch block noted. Nonspecific ST/T wave changes, which are unchanged from prior EKG. ECG initial impression date: 03/04/24 ECG initial impression time: 19:59 MDM Narrative Medical Decision Narrative: In summary, this patient is a 78-year-old female presenting to the Emergency Department for evaluation of burning pain across her left chest that got worse today. Differential diagnoses considered include but are not limited to ACS, dysrhythmia, costochondritis, musculoskeletal strain/sprain, GERD, shingles, cellulitis. Ruling out the most morbid conditions drove assessment. On exam, the patient is well-appearing with reassuring vital signs on cardiac telemetry. She has chronic sinus bradycardia but no acute changes on EKG. She has no rashes that would suggest shingles, cellulitis, or other acute skin etiology. Her pain is currently a 2 out of 10. Workup included CBC, CMP, troponin, and chest x-ray. I independently interpreted x-ray prior to the radiologist read and noted no acute focal consolidation or pneumothorax. Please see their read for final interpretation. Labs were obtained that demonstrated negative initial troponin without other acutely concerning abnormalities. At 2030, patient was placed in ED observation status pending second troponin and reassessment to determine whether or not the patient would be appropriate for discharge versus admission. The patient was provided serial reevaluations and cardiac monitoring while awaiting ultimate disposition. Ultimately, the second troponin came back negative. On subsequent reassessments, the patient is resting comfortably with reassuring vital signs on cardiac telemetry. She states she is feeling much better and does not have any significant pain at this time. Ultimately, at 2230, patient was deemed to be appropriate for discharge with diagnosis of low risk chest pain. Total ED observation time was 2 hours. Patient was given strict return precautions as well as instructions for close patient follow-up with her primary care provider.
[2024-03-04 20:10] LABS: Troponin I < 0.01 ng/ml (0.00-0.034)
[2024-03-04 22:08] LABS: Troponin I < 0.01 ng/ml (0.00-0.034)
== END 2024-03-04 22:50 | disposition home or self-care (01) ==
PROVIDERS: Emergency Provider Emergency Medicine; PCP Internal Medicine Adolescent Medicine
DX: R07.9 Chest pain, unspecified (principal); I49.3 Ventricular premature depolarization; I45.19 Other right bundle-branch block; R00.1 Bradycardia, unspecified; E78.5 Hyperlipidemia, unspecified; F41.9 Anxiety disorder, unspecified
CPT/HCPCS: 71045; 80053; 83690; 84484; 85025; 93005; 99284

== ENCOUNTER 2024-05-26 09:38 | Emergency (ER) | payer MEDICARE, BC, SELFPAY ==
[2024-05-26] VITALS (12 sets, daily range): BP systolic 84–154; BP diastolic 54–102; PULSE 57–79; RESP 12–20; TEMP 37–37.1; O2SAT 95–98; BMI 39.0
--- NOTE | 2024-05-26 09:45 | ECG_ITS ---
APPROVED REPORT Exam: Resting ECG HR:57 bpm ECG Measurements Heart Rate 57 AXES WI 147 P 54 QRSd 99 QRS 63 QT 442 T 249 QTc 435 Conclusion SINUS BRADYCARDIA INCOMPLETE RIGHT BUNDLE BRANCH BLOCK [90+ ms QRS DURATION, TERMINAL R IN V1/V2, 40+ ms S IN I/aVL/V4/V5/V6] MODERATE T-WAVE ABNORMALITY, CONSIDER ANTEROLATERAL ISCHEMIA [-0.1+ mV T-WAVE IN V3-V6] MODERATE T-WAVE ABNORMALITY, CONSIDER INFERIOR ISCHEMIA [-0.1+ mV T-WAVE IN II/aVF] ABNORMAL ECG UNCONFIRMED REPORT Electronically signed by : Huy Owens, 05/26/2024 15:06:43
--- NOTE | 2024-05-26 10:00 | PC.NURSE ---
Dr. Owens at bedside
--- NOTE | 2024-05-26 10:02 | XR_ITS ---
PROCEDURE INFORMATION: Exam: XR Chest Exam date and time: 05/26/2024 10:08 AM Age: 78 years old Clinical indication: Dyspnea and other: Chest pain TECHNIQUE: Imaging protocol: Radiologic exam of the chest. Views: 1 view. COMPARISON: CR XR CHEST PORTABLE 03/04/2024 8:16 PM FINDINGS: Lungs: The lungs are clear. Pleural spaces: No pleural effusion pneumothorax. Heart/Mediastinum: Post cardiac surgery changes. Sternotomy wires appear intact. Aortic atherosclerosis. Mild cardiomegaly. Bones/joints: No acute fracture. Moderate bilateral acromioclavicular degenerative joint disease. IMPRESSION: No acute cardiopulmonary abnormality.
--- NOTE | 2024-05-26 10:04 | [facility].EDCP ---
Discharge Plan Disposition Patient Disposition: Home, Self-Care Prescriptions Prescriptions: No Action atorvastatin 10 MG tablet 10 mg PO HS oxybutynin chloride 10 MG tablet extended release 24hr 10 mg PO DAILY alendronate 70 MG tablet 70 mg PO WEEKLY alprazolam 0.25 MG tablet 0.25 mg PO TIDP PRN (Reason: Anxiety) cevimeline 30 MG capsule 30 mg PO TID hydroxychloroquine 200 MG tablet 200 mg PO BID Patient Comments: 1 a day. 2 the next day colchicine 0.6 MG tablet 0.6 mg PO DAILY ondansetron 4 MG tablet,disintegrating 4 mg PO BIDP PRN (Reason: Nausea) Qty: 10 0RF calcium polycarbophil 625 MG tablet 625 mg PO DAILY nitroglycerin 0.4 MG tablet, sublingual 0.4 mg SL Q5MINP PRN (Reason: Chest Pain) aspirin 81 MG tablet,delayed release (DR/EC) 81 mg PO DAILY famotidine 20 MG tablet 20 mg PO HS furosemide 20 MG tablet 20 mg PO DAILY colestipol 1 GM tablet 1 gm PO BID atenolol 50 MG tablet 50 mg PO DAILY cyclosporine 1 EACH dropperette 1 drop OP DAILY [id number] 1 EACH capsule,delayed release(DR/EC) 1 each PO AC cefdinir 300 mg capsule 300 mg PO BID 7 Days Qty: 14 0RF potassium chloride 20 mEq tablet extended release 20 meq PO DAILY Qty: 30 0RF Referrals Follow up/Referrals: Roc Chew MD [Staff Physician] - See instructions Activity Restrictions/Add. Instructions Additional Instructions/Restrictions: Please follow-up with Dr. Chung or with our manager manufacturing Dr. Chew at your earliest convenience. If you have any refractory or returning chest pain you may return to the emergency department. Clinical Impressions Clinical Impression: Atypical chest pain Discharge ED Provider: Yumiko Owens [facility] General Chief Complaint: Chest Pain Stated Complaint: Chest Pain Time Seen by Provider: 05/26/24 09:49 Mode of Arrival: EMS Source of Information: Patient Limitations: No Limitations Description of Symptoms (Recalled from ER Triage Doc. by RN): chest pain for 3 hours. radiates to the left chest. History of Present Illness HPI narrative: Patient is a 78-year-old female presenting today with chest pain. 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 She has not had any further intervention since that time is only medically managed. Of note her most recent hospitalization was in February 2023 where she had a left heart cath at [facility] and no intervention was done at that time. Medications were not adjusted either. She remains compliant with her antiplatelet agents. She was also in our hospital in February of this year with negative serial troponins was discharged home with outpatient follow-up. She recently saw her manager manufacturing who repeated an EKG and told her everything looked okay. She woke up this morning at 6 AM with chest pain. Was substernal radiating to her left shoulder no diaphoresis or exertional component associated with this she took aspirin and nitroglycerin and xanax with significant improvement in her symptoms. States her only discomfort at the moment is little bit of shoulder discomfort. Related Data Home Medications Medication Instructions Recorded Confirmed alendronate 70 mg tablet 70 mg PO WEEKLY Osteoporosis 01/06/19 01/15/24 alprazolam 0.25 mg tablet 0.25 mg PO TIDP PRN Anxiety 01/06/19 01/15/24 atorvastatin 10 mg tablet 10 mg PO HS Cholesterol 01/06/19 01/15/24 cevimeline 30 mg capsule 30 mg PO TID dry mouth 01/06/19 01/15/24 colchicine 0.6 mg tablet 0.6 mg PO DAILY gout 01/06/19 01/15/24 hydroxychloroquine 200 mg tablet 200 mg PO BID Arthritis 01/06/19 01/15/24 oxybutynin chloride 10 mg 10 mg PO DAILY BLADDER 01/06/19 01/15/24 tablet,extended release 24 hr calcium polycarbophil 625 mg tablet 625 mg PO DAILY Supplement 08/30/19 01/15/24 nitroglycerin 0.4 mg sublingual 0.4 mg SL Q5MINP PRN Chest Pain 08/30/19 01/15/24 tablet aspirin 81 mg tablet,delayed 81 mg PO DAILY heart health 01/04/20 01/15/24 release atenolol 50 mg tablet 50 mg PO DAILY Hypertension 01/04/20 01/15/24 colestipol 1 gram tablet 1 gm PO BID Cholesterol 01/04/20 01/15/24 cyclosporine 0.05 % eye drops in a 1 drop OP DAILY dry eyes 01/04/20 01/15/24 dropperette famotidine 20 mg tablet 20 mg PO HS GERD 01/04/20 01/15/24 furosemide 20 mg tablet 20 mg PO DAILY Fluid 01/04/20 01/15/24 [id number] 1 each PO AC PANCREATIC 01/04/20 01/15/24 36,000-114,000-180,000 unit INSUFFICIENCY capsule,delay rel Previous Rx's Medication Instructions Recorded ondansetron 4 mg disintegrating 4 mg PO BIDP PRN Nausea #10 tabs 01/04/22 tablet cefdinir 300 mg capsule 300 mg PO BID 7 days #14 caps 01/19/24 potassium chloride 20 mEq 20 meq PO DAILY #30 tabs 01/19/24 tablet,extended release Allergies Allergy/AdvReac Type Severity Reaction Status Date / Time Penicillins Allergy Intermediate Rash Verified 08/30/19 10:35 ibuprofen [From Motrin] Allergy Mild Verified 08/30/19 10:35 sulfamethoxazole Allergy Verified 01/04/22 10:35 [From Bactrim] trimethoprim [From Bactrim] Allergy Verified 01/04/22 10:35 PFSH [facility] Disclaimer: The information contained in this section may have been updated after the patient was seen, as this information can be updated by other users. Social History Smoking Status: Never smoker alcohol intake: never substance use type: denies use current occupational status: retired Travel in the last 8 weeks: None caffeine: Yes ROS Obtained: Yes All systems reviewed & no additional complaints except as documented Physical Exam General General appearance: alert and in no apparent distress Respiratory Respiratory exam: Present normal lung sounds bilaterally and respiratory distress Cardiovascular Cardiovascular exam: Present regular rate and normal rhythm Abdominal Exam Abdominal exam: Present soft; Absent distention or tenderness Neurological Exam Neurological exam: Present alert and oriented X3 HEART Score HEART Score HEART Score assessment performed?: Yes History (anamnesis): Slightly suspicious ECG: Non-specific disturbance Age: >65 years Risk factors: Atherosclerosis history Troponin: </= normal limit HEART Score: 5 Critical Care Critical Care Time Critical Care Time: No Medical Decision Making Earl Inquiry Pt receiving controlled substance: No Vital Signs Vital Signs: 05/26/24 09:38 05/26/24 10:00 05/26/24 10:30 Temperature 98.6 F Temperature Source Oral Pulse Rate 58 L 57 L Pulse Rate [Left] 59 L Respiratory Rate 16 16 15 Blood Pressure 106/88 L 122/56 L Blood Pressure [Left Arm] 116/95 H Blood Pressure Mean [Left Arm] 102 02 Sat by Pulse Oximetry 96 96 95 Oxygen Delivery Method Room Air Room Air Room Air Lab Data Lab results reviewed: Yes I reviewed the patient's lab results. Labs: Lab Results 05/26/24 09:30: WBC 3.9 L, RBC 4.09 L, Hgb 13.7, Hct 41.0, MCV 100.2 H, MCH 33.5 H, MCHC 33.4, RDW 14.2, Plt Count 123 L, MPV 9.4, Neut % (Auto) 66.1, Lymph % (Auto) 23.6, Ripley % (Auto) 7.5, Eos % (Auto) 1.9, Baso % (Auto) 0.9, Neut # (Auto) 2.6, Lymph # (Auto) 0.9, Ripley # (Auto) 0.3, Eos # (Auto) 0.1, Baso # (Auto) 0.0, Sodium 140, Potassium 4.3, Chloride 109 H, Carbon Dioxide 24, Anion Gap 11.3, BUN 23 H, Creatinine 1.20 H, Estimated Creat Clear 56, Estimated GFR 44 L, Est GFR ( Amer) 53 L, Glucose 115 H, Calcium 9.2, Total Bilirubin 1.0, AST 38 H, ALT 26, Alkaline Phosphatase 84, Troponin I < 0.01, Total Protein 6.8, Albumin 4.3, Globulin 2.5, Albumin/Globulin Ratio 1.7, Lipase 68 05/26/24 10:10: D-Dimer < 0.25 05/26/24 13:10: Troponin I < 0.01 05/26/24 09:30 05/26/24 09:30 Response Orders (Tests/Meds): ORDERS Category Date Time Status CXR --portable [XR chest portable] Stat Exams 05/26/24 10:02 Completed CBC w/Auto Diff [Complete Blood Count Auto Diff] Stat Lab 05/26/24 09:30 Completed CMP [Comprehensive Metabolic Panel] Stat Lab 05/26/24 09:30 Completed D-Dimer Stat Lab 05/26/24 10:10 Completed Lipase Stat Lab 05/26/24 09:30 Completed Trop I [Troponin I] Stat Lab 05/26/24 09:30 Completed Troponin I Q3H Lab 05/26/24 13:10 Completed Troponin I Q3H Lab 05/26/24 16:15 Ordered ECG Data Tracing #1: Attestation: I reviewed this ECG and interpreted as documented below: ECG Narrative: Ventricular to 57 sinus bradycardia evidence of inferior Q waves which are consistent with old EKGs also inferior lateral precordial T wave inversions also consistent with old EKGs no acute ischemic changes such as ST elevations or depressions noted MDM Narrative Medical Decision Narrative: 78-year-old with above history and physical. Differential includes acute coronary syndrome, myocardial injury or myocarditis, pulmonary embolism, anxiety and stress. Patient is very well-appearing on my exam. EKG is consistent with old EKGs with no acute ischemic changes noted. Heart score is 5 assuming a negative troponin. She has had multiple evaluations for this in the emergency department in the recent past with a negative heart cath with the last 18 months. Will perform serial troponins and put patient ED observation status. Given the fact that she is 78 years old cannot use pulmonary embolism a lot criteria will get a D-dimer and use years criteria for cutoff regarding CT PE evaluation. After this workup is complete I will have a discussion with her regarding downstream management assuming negative test. Reassessment 2:02 PM after initial blood test remained negative patient was very well-appearing throughout the duration of her stay in the emergency department initial troponin was negative D-dimer was within threshold of not ordering a CT PE and pulmonary embolism is very unlikely. Chest x-ray was performed to person interpreted shows no acute cardiopulmonary emergency. Labs otherwise unremarkable. Serial troponins were negative. Patient's been advised to follow-up closely with her manager manufacturing or with our manager manufacturing. She she will continue her medication management. She was discharged in stable condition with close outpatient follow-up and return precautions emphasized. No evidence of any acute cardiopulmonary emergency. This is not consistent with acute coronary syndrome.
[2024-05-26 10:08] LABS: Basophils % 0.9 % (0.1-2.0); Eosinophils # 0.1 K/mm3 (0.0-0.4); Eosinophils % 1.9 % (0.1-12.0); Hemoglobin 13.7 g/dL (12.2-16.2); Lymphocytes # 0.9 K/mm3 (0.7-4.5); Lymphocytes % 23.6 % (10-50); Mean Corpuscular HGB Conc 33.4 g/dL (31.8-35.4); Mean Corpuscular Hemoglobin 33.5 pg (27.0-31.2); Mean Corpuscular Volume 100.2 fl (81-99); Mean Platelet Volume 9.4 fl (7.4-10.4); Monocytes # 0.3 K/mm3 (0.1-1.0); Monocytes % 7.5 % (1.7-9.3); Neutrophils # 2.6 K/mm3 (1.8-7.8); Neutrophils % 66.1 % (37.0-80.0); Platelet Count 123 K/mm3 (142-424); Red Blood Count 4.09 M/mm3 (4.20-5.40); Red Cell Distribution Width 14.2 % (11.5-17.5); White Blood Count 3.9 K/mm3 (4.8-10.8)
[2024-05-26 10:10] LABS: Chloride 109 mmol/L (98-107); Potassium 4.3 mmoL/L (3.5-5.1); Sodium 140 mmol/L (136-145)
[2024-05-26 10:12] LABS: Blood Urea Nitrogen 23 mg/dl (7-17)
[2024-05-26 10:13] LABS: Alanine Aminotransferase 26 U/L (12-78); Albumin Level 4.3 g/dl (3.5-5.0); Albumin/Globulin Ratio 1.7 (1.1-1.8); Alkaline Phosphatase 84 U/L (38-126); Anion Gap 11.3 mEq/L (5-15); Aspartate Amino Transferase 38 U/L (14-36); Calcium 9.2 mg/dl (8.4-10.2); Carbon Dioxide 24 mmol/L (22.0-30.0); Creatinine Clearance Estimated 56 mL/min (50-200); Estimated Glomerular Filt Rate 44 ml/min (>60); GFR (African American) 53 ML/MIN (>60); Globulin 2.5 g/dL (1.3-3.2); Glucose 115 mg/dl (74-100); Lipase 68 U/L (23-300); Total Protein,Serum 6.8 g/dl (6.3-8.2)
[2024-05-26 10:33] LABS: D-Dimer < 0.25 ug/mL (0.0-0.5)
[2024-05-26 10:33] LABS: Troponin I < 0.01 ng/ml (0.00-0.034)
--- NOTE | 2024-05-26 10:44 | PC.NURSE ---
Dr. Owens at bedside
[2024-05-26 13:48] LABS: Troponin I < 0.01 ng/ml (0.00-0.034)
== END 2024-05-26 14:34 | disposition home or self-care (01) ==
PROVIDERS: Emergency Provider Student in an Organized Health Care Education/Training Program; PCP Internal Medicine Adolescent Medicine
DX: R07.89 Other chest pain (principal); R00.1 Bradycardia, unspecified; M25.512 Pain in left shoulder; Z86.79 Personal history of other diseases of the circulatory system; Z95.5 Presence of coronary angioplasty implant and graft; Z79.02 Long term (current) use of antithrombotics/antiplatelets
CPT/HCPCS: 71045; 80053; 83690; 84484; 85025; 85378; 93005; 99284

== ENCOUNTER 2024-08-07 13:18 | Emergency (ER) | payer MEDICARE, BC, SELFPAY ==
[2024-08-07] VITALS (9 sets, daily range): BP systolic 115–134; BP diastolic 43–82; PULSE 57–63; RESP 20; TEMP 36.7–36.8; O2SAT 96–99; BMI 35.6
--- NOTE | 2024-08-07 13:42 | CT_ITS ---
FINAL REPORT TECHNIQUE: Oral and IV contrast enhanced exam This study was performed with techniques to keep radiation doses as low as reasonably achievable, (ALARA). Individualized dose reduction techniques using automated exposure control or adjustment of mA and/or kV according to the patient''s size were employed. CLINICAL HISTORY: abdominal pain FINDINGS: Abdomen: Lung bases are clear. The gallbladder is unremarkable. Liver has an unremarkable CT appearance. The spleen, pancreas and adrenal glands are unremarkable. Kidneys show no mass or obstruction. Bowel is unremarkable. No bowel obstruction or fluid collection is seen. Pelvis: The appendix is normal. There are uterine fibroids. There is pelvic floor prolapse noted. Pelvic bowel loops are unremarkable. No fluid collection or adenopathy is seen. IMPRESSION: No acute process. Pelvic floor prolapse. Reviewed, Interpreted and Dictated by Berhane Ferris MD Transcribed by Ely Condon Authenticated and . [facility]
--- NOTE | 2024-08-07 13:47 | ED_ITS ---
Discharge Plan Disposition Patient Disposition: Home, Self-Care Chief Complaint: Abdominal Pain Prescriptions Prescriptions: No Action atorvastatin 10 MG tablet 10 mg PO HS oxybutynin chloride 10 MG tablet extended release 24hr 10 mg PO DAILY alendronate 70 MG tablet 70 mg PO WEEKLY alprazolam 0.25 MG tablet 0.25 mg PO TIDP PRN (Reason: Anxiety) cevimeline 30 MG capsule 30 mg PO TID hydroxychloroquine 200 MG tablet 200 mg PO BID Patient Comments: 1 a day. 2 the next day colchicine 0.6 MG tablet 0.6 mg PO DAILY ondansetron 4 MG tablet,disintegrating 4 mg PO BIDP PRN (Reason: Nausea) Qty: 10 0RF calcium polycarbophil 625 MG tablet 625 mg PO DAILY nitroglycerin 0.4 MG tablet, sublingual 0.4 mg SL Q5MINP PRN (Reason: Chest Pain) aspirin 81 MG tablet,delayed release (DR/EC) 81 mg PO DAILY famotidine 20 MG tablet 20 mg PO HS furosemide 20 MG tablet 20 mg PO DAILY colestipol 1 GM tablet 1 gm PO BID atenolol 50 MG tablet 50 mg PO DAILY cyclosporine 1 EACH dropperette 1 drop OP DAILY [id number] 1 EACH capsule,delayed release(DR/EC) 1 each PO AC cefdinir 300 mg capsule 300 mg PO BID 7 Days Qty: 14 0RF potassium chloride 20 mEq tablet extended release 20 meq PO DAILY Qty: 30 0RF Referrals Follow up/Referrals: Provider,Referral, [Referring] - See instructions Activity Restrictions/Add. Instructions Additional Instructions/Restrictions: Call your family doctor to establish care for this visit to the emergency department and schedule follow-up within 48 hours to ensure improvement. If you have any worsening of your condition or any other concerning signs or symptoms, return to the emergency department or your primary care doctor for further evaluation. Clinical Impressions Clinical Impression: Abdominal pain Qualifiers: Abdominal location: left upper quadrant Qualified Code(s): R10.12 - Left upper quadrant pain Instructions Patient Instructions: DI for Acute Abdominal Pain Print Language Print Language: Mauritanian Discharge ED Provider: Delgado Chapman General Adult HPI <Avi Back MD - Last Filed: 08/07/24 15:40> General Chief complaint: Abdominal Pain Stated complaint: nausea Time Seen by Provider: 08/07/24 13:28 Mode of Arrival: EMS Source of Information: Patient Limitations: No Limitations Description of Symptoms (Recalled from ER Triage Doc. by RN): pt began having abd pain and diarrhea last night after eating a tv dinner, pt was gonna drive here but felt too weak and didnt want to risk it, has known hx of gerd and diverticulitis and sees dr belle. denies any fever, vomiting, soa or cp History of Present Illness HPI narrative: This is a 79-year-old female with a history of CAD status post CABG, GERD and diverticulosis who presents with abdominal pain. States that she noticed a lump in her left upper abdomen. States that she was pressing on it and she developed large-volume watery diarrhea. States that she was sitting on the toilet for approximately 1 hour going to the bathroom. States that she got up she felt very weak and diaphoretic. Also reports a history of urinary hesitancy. Denies any fever. Denies any nausea/vomiting. States that she is experiencing reflux symptoms. Related Data Home Medications ?Medication ?Instructions ?Recorded ?Confirmed alendronate 70 mg tablet 70 mg PO WEEKLY Osteoporosis 01/06/19 01/15/24 alprazolam 0.25 mg tablet 0.25 mg PO TIDP PRN Anxiety 01/06/19 01/15/24 atorvastatin 10 mg tablet 10 mg PO HS Cholesterol 01/06/19 01/15/24 cevimeline 30 mg capsule 30 mg PO TID dry mouth 01/06/19 01/15/24 colchicine 0.6 mg tablet 0.6 mg PO DAILY gout 01/06/19 01/15/24 hydroxychloroquine 200 mg tablet 200 mg PO BID Arthritis 01/06/19 01/15/24 oxybutynin chloride 10 mg 10 mg PO DAILY BLADDER 01/06/19 01/15/24 tablet,extended release 24 hr calcium polycarbophil 625 mg tablet 625 mg PO DAILY Supplement 08/30/19 01/15/24 nitroglycerin 0.4 mg sublingual 0.4 mg SL Q5MINP PRN Chest Pain 08/30/19 01/15/24 tablet aspirin 81 mg tablet,delayed 81 mg PO DAILY heart health 01/04/20 01/15/24 release atenolol 50 mg tablet 50 mg PO DAILY Hypertension 01/04/20 01/15/24 colestipol 1 gram tablet 1 gm PO BID Cholesterol 01/04/20 01/15/24 cyclosporine 0.05 % eye drops in a 1 drop OP DAILY dry eyes 01/04/20 01/15/24 dropperette famotidine 20 mg tablet 20 mg PO HS GERD 01/04/20 01/15/24 furosemide 20 mg tablet 20 mg PO DAILY Fluid 01/04/20 01/15/24 etwkln-dxieqxej-avjkscz 1 each PO AC PANCREATIC 01/04/20 01/15/24 36,000-114,000-180,000 unit INSUFFICIENCY capsule,delay rel Previous Rx's ?Medication ?Instructions ?Recorded ondansetron 4 mg disintegrating 4 mg PO BIDP PRN Nausea #10 tabs 01/04/22 tablet cefdinir 300 mg capsule 300 mg PO BID 7 days #14 caps 01/19/24 potassium chloride 20 mEq 20 meq PO DAILY #30 tabs 01/19/24 tablet,extended release Allergies Allergy/AdvReac Type Severity Reaction Status Date / Time Penicillins Allergy Intermediate Rash Verified 08/30/19 10:35 ibuprofen [From Motrin] Allergy Mild Verified 08/30/19 10:35 sulfamethoxazole Allergy Verified 01/04/22 10:35 [From Bactrim] trimethoprim [From Bactrim] Allergy Verified 01/04/22 10:35 PFSH <Avi Back MD - Last Filed: 08/07/24 15:40> [facility] Disclaimer: The information contained in this section may have been updated after the patient was seen, as this information can be updated by other users. Social History Smoking Status: Never smoker alcohol intake: never substance use type: denies use current occupational status: retired Travel in the last 8 weeks: None caffeine: Yes <Avi Back MD - Last Filed: 08/07/24 15:40> ROS Obtained: Yes All systems reviewed & no additional complaints except as documented Physical Exam <Avi Back MD - Last Filed: 08/07/24 15:40> General General appearance: alert and in no apparent distress Eye Eye exam: Present normal appearance, PERRL and EOMI Respiratory Respiratory exam: Present normal lung sounds bilaterally; Absent respiratory distress Cardiovascular Cardiovascular exam: Present regular rate and normal rhythm Abdominal Exam Abdominal exam: Present soft and distention; Absent tenderness, guarding or rebound Extremities Exam Extremities exam: Present normal inspection Neurological Exam Neurological exam: Present alert and oriented X3 Skin Skin exam: Present warm and dry Medical Decision Making <Avi Back MD - Last Filed: 08/07/24 15:40> Medical Records Medical records reviewed: Yes I reviewed the patient's medical records. Screening: Per USPSTF and CDC recommendations, given the prevalence of disease in our region, it is our hospital?s policy to screen for HIV and viral Hepatitis for all patients aged 18 and over and those with ongoing risk factors. Earl Inquiry Pt receiving controlled substance: No Vital Signs: 08/07/24 13:19 08/07/24 13:21 08/07/24 13:31 Temperature 98.2 F Temperature Source Oral Pulse Rate 61 60 Pulse Rate [Right Radial] 58 L Respiratory Rate 20 Blood Pressure 120/82 134/61 Blood Pressure [Right Arm] 120/82 Blood Pressure Mean [Right Arm] 94 02 Sat by Pulse Oximetry 98 96 96 Oxygen Delivery Method Room Air 08/07/24 14:01 08/07/24 14:34 08/07/24 15:31 Temperature Temperature Source Pulse Rate 58 L 57 L 63 Pulse Rate [Right Radial] Respiratory Rate Blood Pressure 126/54 L 126/43 L 115/69 Blood Pressure [Right Arm] Blood Pressure Mean [Right Arm] 02 Sat by Pulse Oximetry 98 98 98 Oxygen Delivery Method 08/07/24 16:01 Temperature Temperature Source Pulse Rate 60 Pulse Rate [Right Radial] Respiratory Rate Blood Pressure 129/74 Blood Pressure [Right Arm] Blood Pressure Mean [Right Arm] 02 Sat by Pulse Oximetry 97 Oxygen Delivery Method Lab Data Lab Results 08/07/24 13:40: Sodium 140, Potassium 4.0, Chloride 109 H, Carbon Dioxide 27, Anion Gap 8.0, BUN 24 H, Creatinine 1.00, Estimated Creat Clear 65, Estimated GFR 54 L, Est GFR ( Amer) 65, Glucose 106 H, Calcium 9.8, Total Bilirubin 1.3, AST 42 H, ALT 28, Alkaline Phosphatase 77, Total Protein 6.9, Albumin 4.5, Globulin 2.4, Albumin/Globulin Ratio 1.9 H, Lipase 86, HIV 1&2 Antibody Rapid Nonreactive 08/07/24 14:02: WBC 4.1 L, RBC 3.98 L, Hgb 13.3, Hct 41.2, MCV 103.6 H, MCH 33.5 H, MCHC 32.3, RDW 14.7, Plt Count 129 L, MPV 9.8, Neut % (Auto) 70.5, Lymph % (Auto) 20.6, [place] % (Auto) 7.1, Eos % (Auto) 1.4, Baso % (Auto) 0.4, Neut # (Auto) 2.9, Lymph # (Auto) 0.8, [place] # (Auto) 0.3, Eos # (Auto) 0.1, Baso # (Auto) 0.0, Lactate 1.2 08/07/24 15:00: Urine Color Yellow, Urine Appearance Sl cloudy, Urine pH 7.0, Ur Specific [place] 1.010, Urine Protein Negative, Urine Glucose (UA) Negative, Urine Ketones Negative, Urine Blood Negative, Urine Nitrate Negative, Urine Bilirubin Negative, Urine Urobilinogen 0.2, Ur Leukocyte Esterase 3+ A, Urine RBC Occasional, Urine WBC 20-50, Ur Squamous Epith Cells 5-10, Urine Bacteria 1+ 08/07/24 14:02 08/07/24 13:40 Orders (Tests/Meds): ED MEDICATIONS Generic Name Dose Route Start Last Admin Trade Name Freq PRN Reason Stop Dose Admin Sodium Chloride 8 ml 08/07/24 13:42 Sodium Chloride 0.9% 10ml Vial IV 09/06/24 13:41 NEEDED PRN dilute pepcid Discontinued Medications Generic Name Dose Route Start Last Admin Trade Name Freq PRN Reason Stop Dose Admin Famotidine 40 mg 08/07/24 13:42 08/07/24 13:58 Famotidine 20mg/2ml Vial IV 08/07/24 13:43 40 mg ONCE ONE Administration Iopamidol 75 ml 08/07/24 15:06 08/07/24 15:07 Iopamidol-370 (76%);100ml Bottle IV 08/07/24 15:07 75 ml ONCE ONE Administration Sodium Chloride 10 ml 08/07/24 15:06 08/07/24 15:07 Sodium Chloride 0.9% 10ml Syr (Rad Only) IV 08/07/24 15:07 10 ml ONCE ONE Administration ORDERS Category Date Time Status CT abdomen pelvis w con Stat Cat Scan 08/07/24 13:42 Completed CBC w/Auto Diff [Complete Blood Count Auto Diff] Stat Lab 08/07/24 14:02 Completed CMP [Comprehensive Metabolic Panel] Stat Lab 08/07/24 13:40 Completed HIV (1&2) Antibody Rapid Stat Lab 08/07/24 13:40 Completed Hep C Ab with Reflex to RNA Stat Lab 08/07/24 13:40 Received Lactic Acid Stat Lab 08/07/24 14:02 Completed Lipase Stat Lab 08/07/24 13:40 Completed Urinalysis and Microscopic Stat Lab 08/07/24 15:00 Completed Urine Culture Stat Micro 08/07/24 15:00 Received Medical Decision Narrative: In summary, this is a 79-year-old female with a history of CAD status post CABG x 3, GERD, diverticulosis presents to the emergency department today with abdominal pain and diarrhea. On initial evaluation patient is afebrile, hemodynamically stable, nontoxic-appearing, benign abdominal exam. Differential diagnosis includes but is not limited to enteritis, colitis, diverticulitis, UTI. Based on these concerns, I ordered CBC, CMP, lipase, lactate, urinalysis, CT abdomen pelvis with IV contrast. Patient received Pepcid for treatment. Labs personally reviewed demonstrate mild leukopenia at 4.1 which is similar to prior, normal hemoglobin, Mild transaminitis with AST 42 which is similar to prior, otherwise unremarkable CMP. At the time of shift change, CT imaging was pending. Care handed off to next rider on. <Delgado Chapman MD - Last Filed: 08/07/24 16:37> Vital Signs: 08/07/24 13:19 08/07/24 13:21 08/07/24 13:31 Temperature 98.2 F Temperature Source Oral Pulse Rate 61 60 Pulse Rate [Right Radial] 58 L Respiratory Rate 20 Blood Pressure 120/82 134/61 Blood Pressure [Right Arm] 120/82 Blood Pressure Mean [Right Arm] 94 02 Sat by Pulse Oximetry 98 96 96 Oxygen Delivery Method Room Air 08/07/24 14:01 08/07/24 14:34 08/07/24 15:31 Temperature Temperature Source Pulse Rate 58 L 57 L 63 Pulse Rate [Right Radial] Respiratory Rate Blood Pressure 126/54 L 126/43 L 115/69 Blood Pressure [Right Arm] Blood Pressure Mean [Right Arm] 02 Sat by Pulse Oximetry 98 98 98 Oxygen Delivery Method 08/07/24 16:01 Temperature Temperature Source Pulse Rate 60 Pulse Rate [Right Radial] Respiratory Rate Blood Pressure 129/74 Blood Pressure [Right Arm] Blood Pressure Mean [Right Arm] 02 Sat by Pulse Oximetry 97 Oxygen Delivery Method Lab Data Lab Results 08/07/24 13:40: Sodium 140, Potassium 4.0, Chloride 109 H, Carbon Dioxide 27, Anion Gap 8.0, BUN 24 H, Creatinine 1.00, Estimated Creat Clear 65, Estimated GFR 54 L, Est GFR ( Amer) 65, Glucose 106 H, Calcium 9.8, Total Bilirubin 1.3, AST 42 H, ALT 28, Alkaline Phosphatase 77, Total Protein 6.9, Albumin 4.5, Globulin 2.4, Albumin/Globulin Ratio 1.9 H, Lipase 86, HIV 1&2 Antibody Rapid Nonreactive 08/07/24 14:02: WBC 4.1 L, RBC 3.98 L, Hgb 13.3, Hct 41.2, MCV 103.6 H, MCH 33.5 H, MCHC 32.3, RDW 14.7, Plt Count 129 L, MPV 9.8, Neut % (Auto) 70.5, Lymph % (Auto) 20.6, [place] % (Auto) 7.1, Eos % (Auto) 1.4, Baso % (Auto) 0.4, Neut # (Auto) 2.9, Lymph # (Auto) 0.8, [place] # (Auto) 0.3, Eos # (Auto) 0.1, Baso # (Auto) 0.0, Lactate 1.2 08/07/24 15:00: Urine Color Yellow, Urine Appearance Sl cloudy, Urine pH 7.0, Ur Specific [place] 1.010, Urine Protein Negative, Urine Glucose (UA) Negative, Urine Ketones Negative, Urine Blood Negative, Urine Nitrate Negative, Urine Bilirubin Negative, Urine Urobilinogen 0.2, Ur Leukocyte Esterase 3+ A, Urine RBC Occasional, Urine WBC 20-50, Ur Squamous Epith Cells 5-10, Urine Bacteria 1+ Orders (Tests/Meds): ED MEDICATIONS Generic Name Dose Route Start Last Admin Trade Name Freq PRN Reason Stop Dose Admin Sodium Chloride 8 ml 08/07/24 13:42 Sodium Chloride 0.9% 10ml Vial IV 09/06/24 13:41 NEEDED PRN dilute pepcid Discontinued Medications Generic Name Dose Route Start Last Admin Trade Name Dilanq PRN Reason Stop Dose Admin Famotidine 40 mg 08/07/24 13:42 08/07/24 13:58 Famotidine 20mg/2ml Vial IV 08/07/24 13:43 40 mg ONCE ONE Administration Iopamidol 75 ml 08/07/24 15:06 08/07/24 15:07 Iopamidol-370 (76%);100ml Bottle IV 08/07/24 15:07 75 ml ONCE ONE Administration Sodium Chloride 10 ml 08/07/24 15:06 08/07/24 15:07 Sodium Chloride 0.9% 10ml Syr (Rad Only) IV 08/07/24 15:07 10 ml ONCE ONE Administration ORDERS Category Date Time Status CT abdomen pelvis w con Stat Cat Scan 08/07/24 13:42 Completed CBC w/Auto Diff [Complete Blood Count Auto Diff] Stat Lab 08/07/24 14:02 Completed CMP [Comprehensive Metabolic Panel] Stat Lab 08/07/24 13:40 Completed HIV (1&2) Antibody Rapid Stat Lab 08/07/24 13:40 Completed Hep C Ab with Reflex to RNA Stat Lab 08/07/24 13:40 Received Lactic Acid Stat Lab 08/07/24 14:02 Completed Lipase Stat Lab 08/07/24 13:40 Completed Urinalysis and Microscopic Stat Lab 08/07/24 15:00 Completed Urine Culture Stat Micro 08/07/24 15:00 Received Medical Decision Narrative: In summary, this is a 79-year-old female with a history of CAD status post CABG x 3, GERD, diverticulosis presents to the emergency department today with abdominal pain and diarrhea. On initial evaluation patient is afebrile, hemodynamically stable, nontoxic-appearing, benign abdominal exam. Differential diagnosis includes but is not limited to enteritis, colitis, diverticulitis, UTI. Based on these concerns, I ordered CBC, CMP, lipase, lactate, urinalysis, CT abdomen pelvis with IV contrast. Patient received Pepcid for treatment. Labs personally reviewed demonstrate mild leukopenia at 4.1 which is similar to prior, normal hemoglobin, Mild transaminitis with AST 42 which is similar to prior, otherwise unremarkable CMP. At the time of shift change, CT imaging was pending. Care handed off to next rider on. Ari: I assumed primary responsibility for this patient after signout from previous physician. On my independent evaluation, patient in no acute distress. Has no acute complaints for me. Independent interpretation of workup with nonactionable/stable CBC. Chemistry with no acute findings, normal kidney function. Lactate negative, LFTs nonactionable and troponin negative. Lipase also negative. Urinalysis without concern for UTI. CT scan independently interpreted and patient has no acute intra-abdominal findings, radiology commented on pelvic floor prolapse, no other acute findings. Because patient at baseline without signs or symptoms of clinical decompensation, deemed appropriate for discharge. Results were relayed to patient who voiced understanding and were agreeable to outpatient management and follow up. I discussed my clinical impression with patient and answered all questions. At this time, the evidence for any other entities in the differential is insufficient to warrant any further testing or ED observation. This was explained as well. Advisory was given that persistent or worsening symptoms require further evaluation. I confirmed the understanding of this discussion. Critical Care <Avi Back MD - Last Filed: 08/07/24 15:40> Critical Care Time Critical Care Time: No
[2024-08-07 13:56] LABS: Albumin Level 4.5 g/dl (3.5-5.0); Chloride 109 mmol/L (98-107); Sodium 140 mmol/L (136-145)
[2024-08-07 13:58] LABS: Blood Urea Nitrogen 24 mg/dl (7-17); Creatinine Clearance Estimated 65 mL/min (50-200); Estimated Glomerular Filt Rate 54 ml/min (>60); GFR (African American) 65 ML/MIN (>60)
[2024-08-07] MEDS: FAMOTIDINE 20MG/2ML VIAL 40 MG IV (13:58)
[2024-08-07 13:59] LABS: Alanine Aminotransferase 28 U/L (12-78); Albumin/Globulin Ratio 1.9 (1.1-1.8); Alkaline Phosphatase 77 U/L (38-126); Aspartate Amino Transferase 42 U/L (14-36); Bilirubin,Total 1.3 mg/dl (0.2-1.3); Calcium 9.8 mg/dl (8.4-10.2); Carbon Dioxide 27 mmol/L (22.0-30.0); Globulin 2.4 g/dL (1.3-3.2); Glucose 106 mg/dl (74-100); Lipase 86 U/L (23-300); Total Protein,Serum 6.9 g/dl (6.3-8.2)
[2024-08-07 14:17] LABS: Basophils % 0.4 % (0.1-2.0); Eosinophils # 0.1 K/mm3 (0.0-0.4); Eosinophils % 1.4 % (0.1-12.0); Hematocrit 41.2 % (37.0-47.0); Hemoglobin 13.3 g/dL (12.2-16.2); Lymphocytes # 0.8 K/mm3 (0.7-4.5); Lymphocytes % 20.6 % (10-50); Mean Corpuscular HGB Conc 32.3 g/dL (31.8-35.4); Mean Corpuscular Hemoglobin 33.5 pg (27.0-31.2); Mean Corpuscular Volume 103.6 fl (81-99); Mean Platelet Volume 9.8 fl (7.4-10.4); Monocytes # 0.3 K/mm3 (0.1-1.0); Monocytes % 7.1 % (1.7-9.3); Neutrophils # 2.9 K/mm3 (1.8-7.8); Neutrophils % 70.5 % (37.0-80.0); Platelet Count 129 K/mm3 (142-424); Red Blood Count 3.98 M/mm3 (4.20-5.40); Red Cell Distribution Width 14.7 % (11.5-17.5); White Blood Count 4.1 K/mm3 (4.8-10.8)
[2024-08-07 14:35] LABS: Lactic Acid 1.2 mmol/L (0.7-2.1)
[2024-08-07] MEDS: SODIUM CHLORIDE 0.9% 10ML SYR (RAD ONLY) 10 ML IV (15:07)
[2024-08-07] MEDS: IOPAMIDOL-370 (76%);100ML BOTTLE 75 ML IV (15:07)
[2024-08-07 15:08] LABS: Microscopic, Urine URINE MICROSCOPIC (MICROSCOPIC)
--- NOTE | 2024-08-07 15:11 | PC.NURSE ---
PT ARRIVED BACK TO ROOM FROM CT
[2024-08-07 15:17] LABS: Appearance,Urine SL CLOUDY (Clear); Bilirubin,Urine Negative (Negative); Blood, Urine Negative (Negative); Color,Urine YELLOW (Yellow); Glucose,Urine (UA) Negative (Negative); Ketones,Urine Negative (Negative); Leukocyte Esterase,Urine 3+ (Negative); Nitrate,Urine Negative (Negative); Protein,Urine Negative (Negative); Urobilinogen,Urine 0.2 EU/dl (0.2)
[2024-08-07 15:24] LABS: HIV (1&2) Antibody Rapid NONREACTIVE (NONREACTIVE)
[2024-08-07 15:53] LABS: Bacteria,Urine 1+ /lpf; RBC,Urine Occasional #/hpf (0-3); WBC,Urine 20-50 #/hpf (0-3)
--- NOTE | 2024-08-07 16:51 | PC.NURSE ---
DR FORTE AT BEDSIDE TO UPDATE PT AND FAMILY
[2024-08-08 08:51] LABS: HCV Ab Non Reactive (Non Reactive)
== END 2024-08-07 17:00 | disposition home or self-care (01) ==
PROVIDERS: Student in an Organized Health Care Education/Training Program; Emergency Provider Emergency Medicine; PCP Internal Medicine Adolescent Medicine
DX: R10.12 Left upper quadrant pain (principal); B96.89 Other specified bacterial agents as the cause of diseases classified elsewhere; R53.1 Weakness; R19.7 Diarrhea, unspecified
CPT/HCPCS: 74177; 80053; 81001; 83605; 83690; 85025; 86803; 87086; 87389; 96374; 99284; Q9967; S0028

== ENCOUNTER 2024-09-25 09:16 | Outpatient (CLI) | payer MEDICARE, BC, SELFPAY ==
[2024-09-25 09:43] LABS: Basophils # 0.1 K/mm3 (0-0.2); Basophils % 1.1 % (0.1-2.0); Eosinophils # 0.1 K/mm3 (0.0-0.4); Hematocrit 41.9 % (37.0-47.0); Hemoglobin 14.5 g/dL (12.2-16.2); Lymphocytes % 22.5 % (10-50); Mean Corpuscular HGB Conc 34.5 g/dL (31.8-35.4); Mean Corpuscular Hemoglobin 33.9 pg (27.0-31.2); Mean Corpuscular Volume 98.1 fl (81-99); Mean Platelet Volume 9.1 fl (7.4-10.4); Monocytes # 0.3 K/mm3 (0.1-1.0); Monocytes % 6.7 % (1.7-9.3); Neutrophils # 3.1 K/mm3 (1.8-7.8); Neutrophils % 67.7 % (37.0-80.0); Platelet Count 138 K/mm3 (142-424); Red Blood Count 4.27 M/mm3 (4.20-5.40); White Blood Count 4.6 K/mm3 (4.8-10.8)
[2024-09-25 10:14] LABS: Albumin Level 4.2 g/dl (3.5-5.0); Chloride 107 mmol/L (98-107); Sodium 140 mmol/L (136-145)
[2024-09-25 10:17] LABS: Alanine Aminotransferase 23 U/L (12-78); Alkaline Phosphatase 85 U/L (38-126); Aspartate Amino Transferase 41 U/L (14-36); Bilirubin,Total 0.8 mg/dl (0.2-1.3); Blood Urea Nitrogen 28 mg/dl (7-17); Carbon Dioxide 26 mmol/L (22.0-30.0); Estimated Glomerular Filt Rate 48 ml/min (>60); GFR (African American) 58 ML/MIN (>60); Total Protein,Serum 6.7 g/dl (6.3-8.2)
[2024-09-25 10:18] LABS: Calcium 8.9 mg/dl (8.4-10.2); Chol/HDL Ratio 2.1 (1-3.5); Cholesterol 117 mg/dl (140-200); Glucose 107 mg/dl (74-100); HDL Cholesterol 55 mg/dl (40-60); Triglycerides 184 mg/dl (30-150); VLDL Cholesterol 37 mg/dL (0-40)
[2024-09-25 10:24] LABS: Albumin/Globulin Ratio 2.2 (1.1-1.8); Globulin 1.9 g/dL (1.3-3.2); Uric Acid 5.3 mg/dl (2.5-6.2)
[2024-09-25 10:39] LABS: 25-OH Vitamin D, Total 51.8 ng/mL (30-100)
[2024-09-25 11:12] LABS: Vitamin B12 806 pg/mL (239-931)
== END 2024-09-25 23:59 | disposition home or self-care (01) ==
LOC: LAB 09:18
PROVIDERS: PCP Internal Medicine Adolescent Medicine; Visit Provider Nurse Practitioner Family
DX: E78.2 Mixed hyperlipidemia (principal); E55.9 Vitamin D deficiency, unspecified; E53.8 Deficiency of other specified B group vitamins
CPT/HCPCS: 36415; 80053; 80061; 82306; 82607; 84550; 85025

== ENCOUNTER 2024-10-15 13:46 | Outpatient (CLI) | payer MEDICARE, BC, SELFPAY ==
[2024-10-15 15:49] VITALS: BMI 37.8
== END 2024-10-15 23:59 | disposition home or self-care (01) ==
LOC: DIETICIAN 13:47
PROVIDERS: PCP Internal Medicine Adolescent Medicine; Visit Provider Nurse Practitioner Family
DX: K58.0 Irritable bowel syndrome with diarrhea (principal); K21.9 Gastro-esophageal reflux disease without esophagitis; K86.81 Exocrine pancreatic insufficiency
CPT/HCPCS: 97802

== ENCOUNTER 2025-03-04 15:56 | Outpatient (CLI) | payer MEDICARE, BC, SELFPAY ==
--- NOTE | 2025-03-04 | XR_ITS ---
PROCEDURE INFORMATION: Exam: XR Right Clavicle, Complete Exam date and time: 03/04/2025 4:10 PM Age: 79 years old Clinical indication: Other: Right clavicle pain TECHNIQUE: Imaging protocol: Radiologic exam of the right clavicle. Complete exam. Views: Any number of views. COMPARISON: CR XR CHEST PORTABLE 05/26/2024 10:08 AM FINDINGS: Bones/joints: No acute fracture identified. Mild degenerative changes of the right AC joint. Soft tissues: Normal. IMPRESSION: No acute abnormality.
--- NOTE | 2025-03-04 | XR_ITS ---
PROCEDURE INFORMATION: Exam: XR Sternum Exam date and time: 03/04/2025 4:10 PM Age: 79 years old Clinical indication: Pain; Other: Right clavicle; Additional info: Pain in right clavicle TECHNIQUE: Imaging protocol: Radiologic exam of the sternum. Views: 2 or more views. COMPARISON: CR XR CHEST PORTABLE 05/26/2024 10:08 AM FINDINGS: Bones/joints: Normal. No acute fracture identified. Soft tissues: Normal. IMPRESSION: No acute findings.
== END 2025-03-04 23:59 | disposition home or self-care (01) ==
LOC: RAD 15:57
PROVIDERS: PCP Internal Medicine Adolescent Medicine; Visit Provider Internal Medicine Adolescent Medicine
DX: M89.8X1 Other specified disorders of bone, shoulder (principal)
CPT/HCPCS: 71120; 73000

== ENCOUNTER 2025-03-26 08:36 | Emergency (ER) | payer MEDICARE, BC, SELFPAY ==
--- NOTE | 2025-03-26 08:37 | PC.NURSE ---
Jacqueline Owens brought pt to room 9. Fermin Harrison RN at bedside for report
[2025-03-26 08:42] VITALS: BP 136/65; PULSE 63; RESP 18; TEMP 36.7; O2SAT 96; BMI 36.7
--- NOTE | 2025-03-26 08:45 | ED_ITS ---
Discharge Plan Disposition Patient Disposition: Home, Self-Care Prescriptions Prescriptions: No Action Gemtesa 75 mg tablet 75 mg PO DAILY cholecalciferol (vitamin D3) 125 mcg (5,000 unit) capsule 125 mcg PO DAILY Voquezna 20 mg tablet 20 mg PO DAILY Qty: 90 3RF cyanocobalamin (vitamin B-12) 1,000 mcg/mL solution 1,000 mcg IM MONTHLY atorvastatin [Lipitor] 10 MG tablet 10 mg PO HS alprazolam 0.25 MG tablet 0.25 mg PO TIDP PRN (Reason: Anxiety) cevimeline 30 MG capsule 30 mg PO TID hydroxychloroquine 200 MG tablet 200 mg PO BID Patient Comments: 1 a day. 2 the next day colchicine 0.6 MG tablet 0.6 mg PO DAILY nitroglycerin 0.4 MG tablet, sublingual 0.4 mg sublingual Q5MINP PRN (Reason: Chest Pain) aspirin 81 MG tablet,delayed release (DR/EC) 81 mg PO DAILY atenolol 50 MG tablet 50 mg PO DAILY cyclosporine [Restasis] 1 EACH dropperette 1 drp ophthalmic (eye) DAILY colestipol 1 gram tablet 1 g PO ONCE furosemide 20 mg tablet 20 mg PO DAILY PRN (Reason: Fluid) potassium chloride 20 mEq tablet extended release 20 meq PO DAILY Qty: 30 0RF calcium polycarbophil [FiberCon] 625 mg Tablet 625 mg PO DAILY Creon 36,000-114,000- 180,000 unit capsule,delayed release(DR/EC) 1 cap PO AC Rx Instructions: Take 1 capsule by mouth before meals/snacks max 6XD Referrals Follow up/Referrals: Provider,Referral, MD [Referring] - See instructions Activity Restrictions/Add. Instructions Additional Instructions/Restrictions: Please present directly to the colonoscopy suite for procedure evaluation. Your labs are similar to previous labs if you continue having symptoms please present back to the emergency department. Clinical Impressions Clinical Impression: Acute diarrhea Instructions Patient Instructions: DI for Diarrhea and Traveler's Diarrhea -- Adult, DI for Diarrhea and Traveler's Diarrhea -- Child, DI for Nausea -- Adult, DI for Nausea -- Child Print Language Print Language: Italian Discharge ED Provider: Godwin Kelly Adult [facility] General Chief complaint: Nausea/Vomiting/Diarrhea Stated complaint: Dizzy, nausea, abd cramping since taking bowel pre Time Seen by Provider: 03/26/25 08:39 History of Present Illness HPI narrative: Patient is a 79-year-old past medical history of heart palpitations, reflux, congestive heart failure, presenting for nausea and diarrhea. Patient said that she has been taking bowel prep for a colonoscopy that was scheduled for this morning and when she got up had a short episode of lightheadedness but did not fall or pass out. She has had multiple episodes of watery nonbloody diarrhea since she started taking the bowel prep. Patient additionally said that she did not take her Xanax this morning and felt that her anxiety was worse than normal due to the procedure. She was told not to take this medication in preparation. Patient has had intermittent abdominal cramping since starting the bowel prep. Patient is feeling significantly better now and currently has no chest pain, dizziness, abdominal pain, nausea but is having diarrhea. Related Data Home Medications ?Medication ?Instructions ?Recorded ?Confirmed alprazolam 0.25 mg tablet 0.25 mg PO TIDP PRN Anxiety 01/06/19 03/26/25 atorvastatin 10 mg tablet (Lipitor) 10 mg PO HS Cholesterol 01/06/19 03/26/25 cevimeline 30 mg capsule 30 mg PO TID dry mouth 01/06/19 03/26/25 colchicine 0.6 mg tablet 0.6 mg PO DAILY gout 01/06/19 03/26/25 hydroxychloroquine 200 mg tablet 200 mg PO BID Arthritis 01/06/19 03/26/25 nitroglycerin 0.4 mg sublingual 0.4 mg sublingual Q5MINP PRN Chest 08/30/19 03/26/25 tablet Pain aspirin 81 mg tablet,delayed 81 mg PO DAILY heart health 01/04/20 03/26/25 release atenolol 50 mg tablet 50 mg PO DAILY Hypertension 01/04/20 03/26/25 cyclosporine 0.05 % eye drops in a 1 drp ophthalmic (eye) DAILY dry 01/04/20 03/26/25 dropperette (Restasis) eyes cyanocobalamin (vitamin B-12) 1,000 mcg IM MONTHLY 08/21/24 03/26/25 1,000 mcg/mL injection solution cholecalciferol (vitamin D3) 125 125 mcg PO DAILY 12/18/24 03/26/25 mcg (5,000 unit) capsule colestipol 1 gram tablet 1 g PO ONCE Cholesterol 12/18/24 03/26/25 furosemide 20 mg tablet 20 mg PO DAILY PRN Fluid 12/18/24 03/26/25 vibegron 75 mg tablet (Gemtesa) 75 mg PO DAILY 12/18/24 03/26/25 calcium polycarbophil 625 mg 625 mg PO DAILY 03/24/25 03/26/25 tablet (FiberCon) [id number] 1 cap PO AC PANCREATIC 03/26/25 03/26/25 36,000-114,000-180,000 unit INSUFFICIENCY capsule,delay rel (Creon) Previous Rx's ?Medication ?Instructions ?Recorded potassium chloride 20 mEq 20 meq PO DAILY #30 tabs 01/19/24 tablet,extended release vonoprazan 20 mg tablet (Voquezna) 20 mg PO DAILY #90 tabs 09/23/24 Allergies Allergy/AdvReac Type Severity Reaction Status Date / Time Penicillins Allergy Intermediate Rash Verified 03/26/25 10:11 ibuprofen (From Motrin) Allergy Mild Rash Verified 03/26/25 10:11 sulfamethoxazole (From Allergy Unknown Verified 03/26/25 10:11 Bactrim) allergy reaction trimethoprim (From Bactrim) Allergy Unknown Verified 03/26/25 10:11 allergy reaction PFSH PFSH Disclaimer: The information contained in this section may have been updated after the patient was seen, as this information can be updated by other users. Medical History Pancreatitis Hyperlipidemia Hypertension Rheumatoid arthritis Osteoarthritis Hemorrhoids Heart disease Gout GERD (gastroesophageal reflux disease) Colon polyps Colitis CAD (coronary artery disease) History of blood transfusion Surgical History H/O left wrist surgery History of right hip replacement History of cholecystectomy History of back surgery Hx of CABG H/O right wrist surgery Family History Father Cancer Social History Smoking Status: Never smoker alcohol intake: never substance use type: denies use current occupational status: retired Travel in the last 8 weeks?: None caffeine: Yes Have you lived/traveled outside US in past 30 days?: No Contact w/someone who lives/traveled outside US past 30 days?: No Exposure to someone with infectious disease in past 14 days?: No Do you have a fever (greater than 100.4 F or 38 C)?: No Have you tested positive for COVID-19?: No Exposed to someone with COVID-19 in past 14 days?: No Do you have a sore throat?: No Do you have a cough?: No Do you have any weakness?: No Are you experiencing any nausea/vomitting?: No Do you have any diarrhea?: No Are you experiencing any unusual bleeding?: No Do you have any muscle aches/pain?: No Do you have any abdominal pain?: No Are you experiencing loss of taste or smell?: No Other Medical History Have you received the Flu Vaccine for this season: Yes Have you received the Pneumonia Vaccine: Yes ROS Obtained: Yes All systems reviewed & no additional complaints except as documented Cardiovascular Cardiovascular: Reports system reviewed and no additional complaints, except as documented Respiratory Respiratory: Reports system reviewed and no additional complaints, except as documented Physical Exam General General appearance: alert and in no apparent distress Head Head exam: atraumatic Eye Eye exam: Present normal appearance ENT ENT exam: Present normal exam Neck Neck exam: Present normal inspection Chest Chest inspection: Present normal inspection Respiratory Respiratory exam: Present normal lung sounds bilaterally; Absent respiratory distress Cardiovascular Cardiovascular exam: Present regular rate and normal rhythm Abdominal Exam Abdominal exam: Present soft; Absent distention, tenderness, guarding or rebound Neurological Exam Neurological exam: Present alert Skin Skin exam: Present warm and other (Cap refill less than 2 seconds) Medical Decision Making Medical Records Screening: Per USPSTF and CDC recommendations, given the prevalence of disease in our region, it is our hospital?s policy to screen for HIV and viral Hepatitis for all patients aged 18 and over and those with ongoing risk factors. [place] Inquiry Pt receiving controlled substance: No Vital Signs: 03/26/25 08:42 03/26/25 09:01 03/26/25 09:31 Temperature 98.0 F Temperature Source Oral Pulse Rate 62 61 Pulse Rate [Radial] 63 Respiratory Rate 18 Blood Pressure 152/70 H 149/69 H Blood Pressure [Right Arm] 136/65 Blood Pressure Mean [Right Arm] 88 Blood Pressure Source Blood Pressure Source [Right Arm] Automatic Cuff Blood Pressure Position Blood Pressure Position [Right Arm] Supine 02 Sat by Pulse Oximetry 96 99 99 Oxygen Delivery Method Room Air Room Air Room Air 03/26/25 09:49 Temperature 98.0 F Temperature Source Oral Pulse Rate 61 Pulse Rate [Radial] Respiratory Rate 16 Blood Pressure 149/69 H Blood Pressure [Right Arm] Blood Pressure Mean [Right Arm] Blood Pressure Source Automatic Cuff Blood Pressure Source [Right Arm] Blood Pressure Position Sitting Blood Pressure Position [Right Arm] 02 Sat by Pulse Oximetry Oxygen Delivery Method Room Air Lab Data Lab Results 03/26/25 08:49: Sodium 140, Potassium 3.6, Chloride 108 H, Carbon Dioxide 24, Anion Gap 11.6, BUN 14, Creatinine 1.10 H, Estimated Creat Clear 57, Estimated GFR 48 L, Est GFR ( Amer) 58 L, Glucose 103 H, Calcium 9.6, Total Bilirubin 1.6 H, AST 41 H, ALT 27, Alkaline Phosphatase 72, Total Protein 7.0, Albumin 4.8, Globulin 2.2, Albumin/Globulin Ratio 2.2 H 03/26/25 08:49 Orders (Tests/Meds): ED MEDICATIONS Discontinued Medications Generic Name Dose Route Start Last Admin Trade Name Dilanq PRN Reason Stop Dose Admin Lactated Ringer's 500 mls @ 999 mls/hr 03/26/25 09:13 03/26/25 09:18 Lactated Ringer's 500ml IV 03/26/25 09:43 999 mls/hr .Q31M ONE Administration Ondansetron HCl 4 mg 03/26/25 09:07 03/26/25 09:08 Ondansetron 4mg/2ml Vial IV 03/26/25 09:08 4 mg ONCE ONE Administration ORDERS Category Date Time Status Comprehensive Metabolic Panel Stat Lab 03/26/25 08:49 Completed Medical Decision Narrative: In summary, this 79-year-old female presents to the emergency department today with reflux, obesity, pancreatitis, CABG, CAD. On initial evaluation patient is nausea, diarrhea. Have concerned this is likely secondary to her bowel prep, is currently asymptomatic and has no abdominal tenderness. CT was deferred due to these findings. differential diagnosis includes but is not limited to dehydration, electrolyte abnormality, arrhythmia, enteritis. Based on these concerns, I ordered CMP, Zofran and EKG. ECG personally interpreted demonstrates diffuse T wave inversions consistent with previous EKGs, no ST elevation, sinus rhythm. Patient received Zofran for treatment. Labs personally reviewed demonstrate mild elevation in creatinine similar to previous, mildly elevated chloride. On reassessment patient feeling better with fluid resuscitation, patient was taken by wheelchair up to the GI suite for possible colonoscopy today, and the team there was made aware of patient when she arrived and with discharge.. Admission as considered and patient feeling better and symptoms likely from bowel prep taken. Of note, social determinants of health include []. Critical Care Critical Care Time Critical Care Time: No
--- NOTE | 2025-03-26 08:59 | PC.NURSE ---
I was able to s/w OR Charge nurse Ashley Dooley RN, let her know pt is in the ER and is scheduled for Colonoscopy with Dr Perez. Charge states they will be able to work her into their schedule this AM as long as she is stable & d/c from ER. Dr Kelly states he will order an EKG and some IV fluids for pt.
[2025-03-26 09:01] VITALS: BP 152/70; PULSE 62; O2SAT 99
[2025-03-26] MEDS: ONDANSETRON 4MG/2ML VIAL 4 MG IV (09:08)
--- NOTE | 2025-03-26 09:09 | ECG_ITS ---
APPROVED REPORT Exam: Resting ECG HR:64 bpm ECG Measurements Heart Rate 64 AXES NH 147 P 60 QRSd 115 QRS 56 QT 437 T 240 QTc 446 Conclusion SINUS RHYTHM WITH OCCASIONAL VENTRICULAR PREMATURE COMPLEXES POSSIBLE RIGHT VENTRICULAR CONDUCTION DELAY [RSR (QR) IN V1/V2] MODERATE T-WAVE ABNORMALITY, CONSIDER ANTEROLATERAL ISCHEMIA [-0.1+ mV T-WAVE IN V3-V6] ABNORMAL ECG UNCONFIRMED REPORT Electronically signed by : Godwin Kelly, 03/26/2025 16:20:30
[2025-03-26] MEDS: RINGERS SOLUTION,LACTATED 500 ML 999 ML IV (09:18)
[2025-03-26 09:25] LABS: Alanine Aminotransferase 27 U/L (12-78); Albumin Level 4.8 g/dl (3.5-5.0); Albumin/Globulin Ratio 2.2 (1.1-1.8); Alkaline Phosphatase 72 U/L (38-126); Anion Gap 11.6 mEq/L (5-15); Aspartate Amino Transferase 41 U/L (14-36); Bilirubin,Total 1.6 mg/dl (0.2-1.3); Blood Urea Nitrogen 14 mg/dl (7-17); Calcium 9.6 mg/dl (8.4-10.2); Carbon Dioxide 24 mmol/L (22.0-30.0); Chloride 108 mmol/L (98-107); Creatinine Clearance Estimated 57 mL/min (50-200); Estimated Glomerular Filt Rate 48 ml/min (>60); GFR (African American) 58 ML/MIN (>60); Globulin 2.2 g/dL (1.3-3.2); Glucose 103 mg/dl (74-100); Potassium 3.6 mmoL/L (3.5-5.1); Sodium 140 mmol/L (136-145)
[2025-03-26 09:31] VITALS: BP 149/69; PULSE 61; O2SAT 99
[2025-03-26 09:49] VITALS: BP 149/69; PULSE 61; RESP 16; TEMP 36.7; O2SAT 99
== END 2025-03-26 09:51 | disposition home or self-care (01) ==
PROVIDERS: Emergency Provider Student in an Organized Health Care Education/Training Program; PCP Nurse Practitioner Family
DX: R11.0 Nausea (principal); R42 Dizziness and giddiness; R19.7 Diarrhea, unspecified
CPT/HCPCS: 80053; 93005; 96374; 99284; J2405; J7120

== ENCOUNTER 2025-03-26 09:55 | Day surgery (SDC) | payer MEDICARE, BC, SELFPAY ==
[2025-03-24 17:29] VITALS: BMI 36.7
[2025-03-26 10:18] VITALS: BP 142/57; PULSE 69; RESP 18; TEMP 36.8; O2SAT 99
--- NOTE | 2025-03-26 10:19 | P.HP_ITS ---
History of Present Illness *Admission Date: 03/26/25 *Reason for visit:: Personal history of adenomatous colon polyps *History of present illness: Mrs. Hector is a 79-year-old female who is here for surveillance colonoscopy secondary to a personal history of adenomatous colon polyps. Her colonoscopy in 2019 revealed 4 polyps (tubular adenomas x 4) which were removed.. The examination is deemed medically necessary for surveillance colonoscopy. The patient has been seen, interviewed and examined prior to the procedure by both myself and the anesthesia provider. [facility] Disclaimer: The information contained in this section may have been updated after the patient was seen, as this information can be updated by other users. Medical History Rheumatoid arthritis Osteoarthritis Hemorrhoids Heart disease Gout GERD (gastroesophageal reflux disease) Colon polyps Colitis CAD (coronary artery disease) History of blood transfusion Surgical History History of right hip replacement History of cholecystectomy History of back surgery Hx of CABG H/O right wrist surgery Family History Father Cancer Social History (Updated 03/24/25 @ 14:33 by Shanita Rincon RN) Smoking Status: Never smoker alcohol intake: never substance use type: denies use current occupational status: retired Travel in the last 8 weeks?: None caffeine: Yes Have you lived/traveled outside US in past 30 days?: No Contact w/someone who lives/traveled outside US past 30 days?: No Exposure to someone with infectious disease in past 14 days?: No Do you have a fever (greater than 100.4 F or 38 C)?: No Have you tested positive for COVID-19?: No Exposed to someone with COVID-19 in past 14 days?: No Do you have a sore throat?: No Do you have a cough?: No Do you have any weakness?: No Do you have any diarrhea?: No Are you experiencing any unusual bleeding?: No Do you have any muscle aches/pain?: No Do you have any abdominal pain?: No Are you experiencing loss of taste or smell?: No Other Medical History Have you received the Flu Vaccine for this season: Yes Have you received the Pneumonia Vaccine: Yes Review of Systems Review of Systems Review of systems (narrative): Negative *Cardiovascular Comments: Negative *Gastrointestinal Comments: Negative *Genitourinary Comments: Negative *Musculoskeletal Comments: Negative *Neurologic Comments: Negative Meds Home Medications and Allergies Home Medications ?Medication ?Instructions ?Recorded ?Confirmed ?Type alprazolam 0.25 mg tablet 0.25 mg PO TIDP PRN Anxiety 01/06/19 03/26/25 History atorvastatin 10 mg tablet (Lipitor) 10 mg PO HS Cholesterol 01/06/19 03/26/25 History cevimeline 30 mg capsule 30 mg PO TID dry mouth 01/06/19 03/26/25 History colchicine 0.6 mg tablet 0.6 mg PO DAILY gout 01/06/19 03/26/25 History hydroxychloroquine 200 mg tablet 200 mg PO BID Arthritis 01/06/19 03/26/25 History nitroglycerin 0.4 mg sublingual 0.4 mg sublingual Q5MINP PRN Chest 08/30/19 03/26/25 History tablet Pain aspirin 81 mg tablet,delayed 81 mg PO DAILY heart health 01/04/20 03/26/25 History release atenolol 50 mg tablet 50 mg PO DAILY Hypertension 01/04/20 03/26/25 History cyclosporine 0.05 % eye drops in a 1 drp ophthalmic (eye) DAILY dry 01/04/20 03/26/25 History dropperette (Restasis) eyes potassium chloride 20 mEq 20 meq PO DAILY #30 tabs 01/19/24 03/26/25 Rx tablet,extended release cyanocobalamin (vitamin B-12) 1,000 mcg IM MONTHLY 08/21/24 03/26/25 History 1,000 mcg/mL injection solution vonoprazan 20 mg tablet (Voquezna) 20 mg PO DAILY #90 tabs 09/23/24 03/26/25 Rx cholecalciferol (vitamin D3) 125 125 mcg PO DAILY 12/18/24 03/26/25 History mcg (5,000 unit) capsule colestipol 1 gram tablet 1 g PO ONCE Cholesterol 12/18/24 03/26/25 History furosemide 20 mg tablet 20 mg PO DAILY PRN Fluid 12/18/24 03/26/25 History vibegron 75 mg tablet (Gemtesa) 75 mg PO DAILY 12/18/24 03/26/25 History calcium polycarbophil 625 mg 625 mg PO DAILY 03/24/25 03/26/25 History tablet (FiberCon) [id number] 1 cap PO AC PANCREATIC 03/26/25 03/26/25 History 36,000-114,000-180,000 unit INSUFFICIENCY capsule,delay rel (Creon) New Prescriptions to Start Prescriptions: Allergies Allergy/AdvReac Type Severity Reaction Status Date / Time Penicillins Allergy Intermediate Rash Verified 03/26/25 10:11 ibuprofen (From Motrin) Allergy Mild Rash Verified 03/26/25 10:11 sulfamethoxazole (From Allergy Unknown Verified 03/26/25 10:11 Bactrim) allergy reaction trimethoprim (From Bactrim) Allergy Unknown Verified 03/26/25 10:11 allergy reaction Exam Data for Last 24 hours I & O for Last 24 hours: Intake & Output 03/23/25 03/24/25 03/25/25 03/26/25 23:59 23:59 23:59 23:59 Weight 188 lb *Routine HEENT Exam Head: Present normocephalic Eye: Present EOMI and PERRL ENT: Present mucous membranes moist *Routine Neck Exam Neck: Present supple *Routine Respiratory Exam Respiratory: Present CTA bilaterally *Routine Cardiovascular Exam Cardiovascular: Present RRR *Routine Abdominal Exam Abdominal: Present soft and normoactive bowel sounds; Absent tenderness *Routine Rectal Exam Rectal:: deferred *Routine Genitalia Exam Genitalia:: deferred *Routine Extremities Exam Extremities: Absent cyanosis, clubbing or edema *Routine Skin Exam Skin: Present warm; Absent rash *Routine Neurological Exam Neurological: Present alert and oriented X3 Assessment and Plan *Assessment and plan (1) Personal history of adenomatous and serrated colon polyps: Status: Acute Category: Medical Code(s): Z86.0101 - Personal history of adenomatous and serrated colon polyps Plan A/P: 1. Personal history of adenomatous colon polyps is the preprocedural diagnosis. The patient will be anesthetized/sedated using MAC sedation. The patient has been seen and examined. Cardiac and lung assessment prior to the examination is stable. Proceed with planned surveillance colonoscopy.
--- NOTE | 2025-03-26 10:21 | HMH.PROCNOTE ---
[facility] Procedure Note Date: 03/26/25 Time: 11:21 Procedure Note:: Colonoscopy Procedure Report: Colonoscopy Endoscopist: Mario Perez II, MD Referring physician: José Miguel Verde M.D. Date of Procedure: March 26, 2025 Equipment: Olympus 190 variable stiffness pediatric colonoscope Sedation: MAC sedation Indication: Mrs. Hector is a 79-year-old female who is here for follow-up surveillance colonoscopy. She did have a colonoscopy in August 2019 and had 4 polyps (tubular adenomas x 4) removed. The patient does have more longstanding urgency and sometimes frequency with incomplete bowel evacuation and fear of loss of bowel control. This does make her feel that she needs to stay closer to home and near a bathroom. She has had some upper abdominal discomfort but reports no bloating or gassiness. She reports no rectal bleeding or weight loss. She reports no family history of colon cancer. Her father had cancer of unknown primary. She has had prior colonoscopies with adenomatous polyps (March 2002 normal, April 2008 (2 polyps (hyperplastic polyps) removed, September 2011 4 polyps (tubular adenomas x 4) removed and May 2014 (2 polyps (tubular adenomas x 2) removed. Procedure: Prior to the procedure, a history and physical exam was performed, and patient's medications and allergies were reviewed. The risks, benefits and alternatives of the sedation and procedure were discussed with the patient. All questions were answered and informed consent was obtained. The patient was brought to the procedure room. Patient identification and proposed procedure were verified by the physician and the nurse. The patient was placed in a left lateral decubitus position and the scope was passed under direct vision. Throughout the procedure, the patient's blood pressure, pulse, and oxygen saturations were monitored continuously. The colonoscopy was accomplished without difficulty. The patient tolerated the procedure well. Findings: On digital rectal examination there was normal rectal tone. There were no external hemorrhoids. The colonoscope was introduced through the anal canal to the rectum and advanced to the cecum. The ileocecal valve and appendiceal orifice were identified. The scope was advanced a short distance into the ileum which appeared grossly normal. The scope was then withdrawn into the colon. The cecum, ascending and transverse colon and mucosa were grossly normal. There were scattered diverticuli throughout the descending and sigmoid colon (LEFT colon). The rectum itself was normal. Upon retroflexion within the rectum there were grade 1-2 internal hemorrhoids. The preparation was excellent throughout with [place] Preparation Score of 9. The cecal time was 12 minutes. Impression: 1. Left-sided diverticulosis 2. Grade 1-2 internal hemorrhoids Plan: The patient will not require any further preventive/surveillance colonoscopy. The patient does have bowel and bladder control difficulties. Both bowel function and bladder function are a delicate balance between the nerves and muscles. The nerves that arise from the sacral spine are very closely tied to bowel and bladder evacuation. This sacral nervous system allows you to recognize when your rectum and bladder are full and allows you to correctly contract muscles and hold on to stool and urine appropriately before or until you get to the bathroom. It also allows your bowel and bladder to evacuate fully. When this balance is upset there is incorrect communication between the brain and the nervous system. This can result in the inability to control the passage of liquid and/or solid stool, involuntary leakage and sometimes loss of bowel control. I would recommend continuation of bulking fiber supplementation and I would initially start with pelvic floor physical therapy. Given her overactive bladder with bladder incontinence, I would consider Axonics trial.
[2025-03-26] MEDS: LACTATED RINGERS 1000ML 1,000 ML 50 ML IV (10:29)
--- NOTE | 2025-03-26 10:55 | EXP.ANES.CKL ---
[facility] Disclaimer: The information contained in this section may have been updated after the patient was seen, as this information can be updated by other users. Medical History Pancreatitis Hyperlipidemia Hypertension Rheumatoid arthritis Osteoarthritis Hemorrhoids Heart disease Gout GERD (gastroesophageal reflux disease) Colon polyps Colitis CAD (coronary artery disease) History of blood transfusion Surgical History H/O left wrist surgery History of right hip replacement History of cholecystectomy History of back surgery Hx of CABG H/O right wrist surgery Family History Father Cancer Social History (Reviewed 03/26/25 @ 11: by Chata Chahal CRNA) Smoking Status: Never smoker alcohol intake: never substance use type: denies use current occupational status: retired Travel in the last 8 weeks?: None caffeine: Yes Have you lived/traveled outside US in past 30 days?: No Contact w/someone who lives/traveled outside US past 30 days?: No Exposure to someone with infectious disease in past 14 days?: No Do you have a fever (greater than 100.4 F or 38 C)?: No Have you tested positive for COVID-19?: No Exposed to someone with COVID-19 in past 14 days?: No Do you have a sore throat?: No Do you have a cough?: No Do you have any weakness?: No Are you experiencing any nausea/vomitting?: No Do you have any diarrhea?: No Are you experiencing any unusual bleeding?: No Do you have any muscle aches/pain?: No Do you have any abdominal pain?: No Are you experiencing loss of taste or smell?: No [facility] Anesthesia Checklist Patient Identification Patient Identification: Arm Band and Verbal (Name & ) Structural Data Admitted From: Home Planned Operative Procedure/s: colonscopy Consent for Planned Operative Procedure(s) Verified: Yes Verified Documents: Surgical Consent and History and Physical NPO Status Verified Time NPO: 00:00 Additional verifications Anesthesia Reactions: No Airway Assessment Mallampati Score:: Class II Dentition: Poor Dentition Neurological Assessment Level of Consciousness: Awake, Alert and Appropriate Hx Seizures: No Numbness or tingling in extremities: No Anesthesia Plan Anesthesia Risk discussed: Yes Anesthesia Plan: Verified ASA Class: III Anesthesia Type: MAC
[2025-03-26 10:59] VITALS: O2SAT 100
[2025-03-26 11:22] VITALS: BP 105/76; PULSE 62; RESP 16; TEMP 36.6; O2SAT 100
[2025-03-26 11:32] VITALS: BP 103/70; PULSE 61; RESP 16; O2SAT 98
[2025-03-26 11:42] VITALS: BP 108/67; PULSE 70; RESP 16; O2SAT 100
[2025-03-26 11:52] VITALS: BP 124/65; PULSE 69; RESP 16; O2SAT 100
== END 2025-03-26 11:55 | disposition home or self-care (01) ==
PROVIDERS: PCP Internal Medicine Adolescent Medicine; Visit Provider Internal Medicine Gastroenterology
PROC: 0DJD8ZZ Inspection of Lower Intestinal Tract, Via Natural or Artificial Opening Endoscopic (ICD-10-PCS; CPT 45378; principal; 2025-03-26 10:30)
DX: Z12.11 Encounter for screening for malignant neoplasm of colon (principal); Z86.0101 Personal history of adenomatous and serrated colon polyps; R15.2 Fecal urgency; R15.0 Incomplete defecation; R15.9 Full incontinence of feces; K57.30 Diverticulosis of large intestine without perforation or abscess without bleeding; K64.8 Other hemorrhoids
CPT/HCPCS: G0105; J7120

== ENCOUNTER 2025-05-04 12:36 | Emergency (ER) | payer MEDICARE, BC, SELFPAY ==
[2025-05-04 12:42] VITALS: BP 146/80; PULSE 71; RESP 18; O2SAT 98
[2025-05-04 12:45] VITALS: BP 146/80; PULSE 68; RESP 18; TEMP 36.8; O2SAT 99; BMI 36.7
--- NOTE | 2025-05-04 12:48 | [facility].EDGENADL ---
Discharge Plan Disposition Patient Disposition: Home, Self-Care Condition: Good Prescriptions Prescriptions: New fluticasone furoate 27.5 mcg/actuation spray,suspension 1 spray intranasal DAILY Qty: 5.9 0RF Rx Instructions: into each nostril Zyrtec 10 mg capsule 10 mg PO DAILY PRN (Reason: allergy symptoms) Qty: 14 0RF No Action Gemtesa 75 mg tablet 75 mg PO DAILY cholecalciferol (vitamin D3) 125 mcg (5,000 unit) capsule 125 mcg PO DAILY Voquezna 20 mg tablet 20 mg PO DAILY Qty: 90 3RF cyanocobalamin (vitamin B-12) 1,000 mcg/mL solution 1,000 mcg IM MONTHLY atorvastatin [Lipitor] 10 MG tablet 10 mg PO HS alprazolam 0.25 MG tablet 0.25 mg PO TIDP PRN (Reason: Anxiety) cevimeline 30 MG capsule 30 mg PO TID hydroxychloroquine 200 MG tablet 200 mg PO BID Patient Comments: 1 a day. 2 the next day colchicine 0.6 MG tablet 0.6 mg PO DAILY nitroglycerin 0.4 MG tablet, sublingual 0.4 mg sublingual Q5MINP PRN (Reason: Chest Pain) aspirin 81 MG tablet,delayed release (DR/EC) 81 mg PO DAILY atenolol 50 MG tablet 50 mg PO DAILY cyclosporine [Restasis] 1 EACH dropperette 1 drp ophthalmic (eye) DAILY colestipol 1 gram tablet 1 g PO ONCE furosemide 20 mg tablet 20 mg PO DAILY PRN (Reason: Fluid) potassium chloride 20 mEq tablet extended release 20 meq PO DAILY Qty: 30 0RF calcium polycarbophil [FiberCon] 625 mg Tablet 625 mg PO DAILY Creon 36,000-114,000- 180,000 unit capsule,delayed release(DR/EC) 1 cap PO AC Rx Instructions: Take 1 capsule by mouth before meals/snacks max 6XD Referrals Follow up/Referrals: Vincenzo Hdz MD [Physician, Ear, Nose, Throat] - See instructions José Miguel Verde MD [Primary Care Provider, Internal Medicine] - See instructions Activity Restrictions/Add. Instructions Additional Instructions/Restrictions: Return to the emergency department for any new or worsening symptoms including severe nausea vomiting or dizziness. Follow-up with ear nose and throat doctors as soon as possible for further evaluation of your ear ringing. Clinical Impressions Clinical Impression: Bilateral tinnitus Print Language Print Language: Albanian Discharge ED Provider: Asia Shaikh General Adult HPI General Chief complaint: Ear Stated complaint: Tinnitus, Vertigo Time Seen by Provider: 05/04/25 12:48 Mode of Arrival: Ambulatory Source of Information: Patient Description of Symptoms (Recalled from ER Triage Doc. by RN): Pt presents with c/o a ringing/roaring sound in her ears x 1 week . Pt denies any vertigo sx or headache. History of Present Illness HPI narrative: Patient is a 79-year-old with past medical history significant for diverticulitis GERD obesity presents to the emergency department with 1 week of ear ringing. Patient describes a sensation of roaring in her bilateral ears that is constant and nasal discharge. No vertigo dizziness nausea vomiting or headache. No vision changes. Ringing in the ears does not positional. No foreign body in the ears. Chronic hearing difficulty. Related Data Home Medications ?Medication ?Instructions ?Recorded ?Confirmed alprazolam 0.25 mg tablet 0.25 mg PO TIDP PRN Anxiety 01/06/19 03/26/25 atorvastatin 10 mg tablet (Lipitor) 10 mg PO HS Cholesterol 01/06/19 03/26/25 cevimeline 30 mg capsule 30 mg PO TID dry mouth 01/06/19 03/26/25 colchicine 0.6 mg tablet 0.6 mg PO DAILY gout 01/06/19 03/26/25 hydroxychloroquine 200 mg tablet 200 mg PO BID Arthritis 01/06/19 03/26/25 nitroglycerin 0.4 mg sublingual 0.4 mg sublingual Q5MINP PRN Chest 08/30/19 03/26/25 tablet Pain aspirin 81 mg tablet,delayed 81 mg PO DAILY heart health 01/04/20 03/26/25 release atenolol 50 mg tablet 50 mg PO DAILY Hypertension 01/04/20 03/26/25 cyclosporine 0.05 % eye drops in a 1 drp ophthalmic (eye) DAILY dry 01/04/20 03/26/25 dropperette (Restasis) eyes cyanocobalamin (vitamin B-12) 1,000 mcg IM MONTHLY 08/21/24 03/26/25 1,000 mcg/mL injection solution cholecalciferol (vitamin D3) 125 125 mcg PO DAILY 12/18/24 03/26/25 mcg (5,000 unit) capsule colestipol 1 gram tablet 1 g PO ONCE Cholesterol 12/18/24 03/26/25 furosemide 20 mg tablet 20 mg PO DAILY PRN Fluid 12/18/24 03/26/25 vibegron 75 mg tablet (Gemtesa) 75 mg PO DAILY 12/18/24 03/26/25 calcium polycarbophil 625 mg 625 mg PO DAILY 03/24/25 03/26/25 tablet (FiberCon) [id number] 1 cap PO AC PANCREATIC 03/26/25 03/26/25 36,000-114,000-180,000 unit INSUFFICIENCY capsule,delay rel (Creon) Previous Rx's ?Medication ?Instructions ?Recorded potassium chloride 20 mEq 20 meq PO DAILY #30 tabs 01/19/24 tablet,extended release vonoprazan 20 mg tablet (Voquezna) 20 mg PO DAILY #90 tabs 09/23/24 cetirizine 10 mg capsule (Zyrtec) 10 mg PO DAILY PRN allergy 05/04/25 symptoms #14 caps fluticasone furoate 27.5 1 spray intranasal DAILY #5.9 mL 05/04/25 mcg/actuation nasal spray,suspension Allergies Allergy/AdvReac Type Severity Reaction Status Date / Time Penicillins Allergy Intermediate Rash Verified 03/26/25 10:11 ibuprofen (From Motrin) Allergy Mild Rash Verified 03/26/25 10:11 sulfamethoxazole (From Allergy Unknown Verified 03/26/25 10:11 Bactrim) allergy reaction trimethoprim (From Bactrim) Allergy Unknown Verified 03/26/25 10:11 allergy reaction PFSH PFSH Disclaimer: The information contained in this section may have been updated after the patient was seen, as this information can be updated by other users. Medical History Pancreatitis Hyperlipidemia Hypertension Rheumatoid arthritis Osteoarthritis Hemorrhoids Heart disease Gout GERD (gastroesophageal reflux disease) Colon polyps Colitis CAD (coronary artery disease) History of blood transfusion Surgical History H/O left wrist surgery History of right hip replacement History of cholecystectomy History of back surgery Hx of CABG H/O right wrist surgery Family History Father Cancer Social History Smoking Status: Never smoker alcohol intake: never substance use type: denies use current occupational status: retired Travel in the last 8 weeks?: None caffeine: Yes Have you lived/traveled outside [place] in past 30 days?: No Contact w/someone who lives/traveled outside [place] past 30 days?: No Exposure to someone with infectious disease in past 14 days?: No Do you have a fever (greater than 100.4 F or 38 C)?: No Have you tested positive for COVID-19?: No Exposed to someone with COVID-19 in past 14 days?: No Do you have a sore throat?: No Do you have a cough?: No Do you have any weakness?: No Do you have any diarrhea?: No Are you experiencing any unusual bleeding?: No Do you have any muscle aches/pain?: No Do you have any abdominal pain?: No Are you experiencing loss of taste or smell?: No Other Medical History Have you received the Flu Vaccine for this season: Yes Have you received the Pneumonia Vaccine: Yes ROS Obtained: Yes All systems reviewed & no additional complaints except as documented Physical Exam General General appearance: alert and in no apparent distress Head Head exam: atraumatic and normocephalic Eye Eye exam: Present normal appearance, PERRL and EOMI ENT ENT exam: Present TM's normal bilaterally and normal external ear exam Chest Chest inspection: Present normal inspection and symmetric chest wall rise Respiratory Respiratory exam: Present normal lung sounds bilaterally; Absent respiratory distress Cardiovascular Cardiovascular exam: Present regular rate and normal rhythm Abdominal Exam Abdominal exam: Present soft; Absent tenderness Extremities Exam Extremities exam: Present edema Neurological Exam Neurological exam: Present alert, oriented X3, CN II-XII intact and normal gait; Absent motor sensory deficit Skin Skin exam: Present warm and dry Medical Decision Making Medical Records Screening: Per USPSTF and CDC recommendations, given the prevalence of disease in our region, it is our hospital?s policy to screen for HIV and viral Hepatitis for all patients aged 18 and over and those with ongoing risk factors. Earl Inquiry Pt receiving controlled substance: No Vital Signs: 05/04/25 12:42 05/04/25 12:45 05/04/25 13:52 Temperature 98.3 F Temperature Source Oral Pulse Rate 71 64 Pulse Rate [Right] 68 Respiratory Rate 18 18 18 Blood Pressure 146/80 H 132/60 Blood Pressure [Right Arm] 146/80 H Blood Pressure Mean 88 92 Blood Pressure Mean [Right Arm] 102 Blood Pressure Source Blood Pressure Source [Right Arm] Automatic Cuff Blood Pressure Position Blood Pressure Position [Right Arm] Sitting 02 Sat by Pulse Oximetry 98 99 99 Oxygen Delivery Method Room Air 05/04/25 14:00 05/04/25 15:03 Temperature 98.3 F Temperature Source Oral Pulse Rate 57 L 62 Pulse Rate [Right] Respiratory Rate 16 18 Blood Pressure 144/75 H 150/80 H Blood Pressure [Right Arm] Blood Pressure Mean 98 Blood Pressure Mean [Right Arm] Blood Pressure Source Automatic Cuff Blood Pressure Source [Right Arm] Blood Pressure Position Supine Blood Pressure Position [Right Arm] 02 Sat by Pulse Oximetry 99 Oxygen Delivery Method Room Air Orders (Tests/Meds): ORDERS Category Date Time Status CT head/brain wo con Stat Cat Scan 05/04/25 12:57 Completed Medical Decision Narrative: In summary, this 79-year-old female presents to the emergency department today with ear ringing. On initial evaluation patient is hemodynamically stable saturating appropriately on room air afebrile no acute distress. Differential diagnosis includes but is not limited to labyrinth-itis vestibular neuritis M?ni?re's disease Agatha Mehta syndrome acoustic neuroma intracranial mass. Based on these concerns, I ordered CT head. Considered antiemetics however patient denies vertigo at this time. CT imaging personally interpreted demonstrate no intracranial mass. The ringing in the ears as a roaring sensation high concern for M?ni?re's disease at this time. Recommended close follow-up with ear nose and throat. Referral placed. Started patient on Zyrtec and fluticasone nasal spray to help decrease inflammation in the inner ear. Critical Care Critical Care Time Critical Care Time: No
--- OUTSIDE RECORDS SUMMARY | 2025-05-04 12:51 | XMS_ITS | Data Portability ---
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 Plan of Treatment Reminders Order Date Submit Date Provider Last Modified By Organization Details Last Modified Time Details Appointments RECHECK 2024 03:15P M MIGUEL SALAZAR MD Not available Not available Not available Lab None recorded . Referral None recorded . Procedures None recorded . Surgeries None recorded . Imaging None recorded . Medication Orders None recorded . Patient TargetsNo targets recorded. Patient Instructions Encounter Date Encounter Id Patient Instructions Last Modified By Organization Details Last Modified Time 09/09/2019 [id number] gout: care instructions [email or web address] Not available 09/09/2019 09:47:00 thrombocytopenia : care instructions [email or web address] Not available 09/09/2019 09:47:00 body mass index: care instructions [email or web address] Not available 09/09/2019 09:47:00 Body Mass Index: Care Instructions-LC [email or web address] Not available 09/09/2019 09:46:59 learning about healthy weight [email or web address] Not available 09/09/2019 09:47:00 rheumatoid arthritis diet: care instructions [email or web address] Not available 09/09/2019 09:47:00 Rheumatoid Arthritis (RA): Care Instructions [email or web address] Not available 09/09/2019 09:47:00 Reason for Referral None Reported. Results Created Date Observation Date Name Description Value Unit Range Abnormal Flag Note LastModifiedBy Organization Detail LastModifiedTime 09/09/20 19 09/09/2019 CBC w/ auto diff white blood cells 5.7 K/uL 3.8-10 .8 normal Not Available [facility] [address] [place] [address], [phone], 09/09/2019 10:28:34 09/09/20 19 09/09/2019 CBC w/ auto diff red blood cells 4.35 M/uL 3.80-5 .20 normal Not Available [facility] [address] [place] [address], [address], 09/09/2019 10:28:34 09/09/20 19 09/09/2019 CBC w/ auto diff hemoglobin 14.2 g/dL 12.0-1 6.0 normal Not Available [facility] [address] [place] [address], [address], 09/09/2019 10:28:34 09/09/20 19 09/09/2019 CBC w/ auto diff hematocrit 41.2 % 35.0-4 7.0 normal Not Available [facility] [address] [place] [address], [address], 09/09/2019 10:28:34 09/09/20 19 09/09/2019 CBC w/ auto diff MCV 95 fL 80-100 normal Not Available [facility] [address] [place] [address], [address], 09/09/2019 10:28:34 09/09/20 19 09/09/2019 CBC w/ auto diff MCH 33 pg 26-35 normal Not Available [facility] [address] [place] [address], [address], 09/09/2019 10:28:34 09/09/20 19 09/09/2019 CBC w/ auto diff MCHC 34 g/dL 32-36 normal Not Available [facility] [address] [place] [address], [phone], 09/09/2019 10:28:34 09/09/20 19 09/09/2019 CBC w/ auto diff RDW 13.8 % 11.0-1 5.0 normal Not Available [facility] [address] [place] [address], [address], 09/09/2019 10:28:34 09/09/20 19 09/09/2019 CBC w/ auto diff MPV 9.2 fL 6.2-10 .5 normal Not Available [facility] [address] [place] [address], [address], 09/09/2019 10:28:34 09/09/20 19 09/09/2019 CBC w/ auto diff platelet count 128 K/uL 130-40 0 low Not Available [facility] [address] [place] [address], [address], 09/09/2019 10:28:34 09/09/20 19 09/09/2019 CBC w/ auto diff neutrophil,a bsolute 4.4 K/uL 1.6-8. 4 normal Not Available [facility] [address] [place] [address], [address], 09/09/2019 10:28:34 09/09/20 19 09/09/2019 CBC w/ auto diff lymphocyte,a bsolute 0.7 K/uL 0.4-5. 1 normal Not Available [facility] [address] [place] [address], [address], 09/09/2019 10:28:34 09/09/20 19 09/09/2019 CBC w/ auto diff monocyte,abs olute 0.5 K/uL 0.0-1. 2 normal Not Available [facility] [address] [place] [address], [address], 09/09/2019 10:28:34 09/09/20 19 09/09/2019 CBC w/ auto diff eosinophil,a bsolute 0.1 K/uL 0.0-0. 8 normal Not Available [facility] [address] [place] [address], [address], 09/09/2019 10:28:34 09/09/20 19 09/09/2019 CBC w/ auto diff basophil,abs olute 0.0 K/uL 0.0-0. 3 normal Not Available [facility] [address] [place] [address], [address], 09/09/2019 10:28:34 09/09/20 19 09/09/2019 CBC w/ auto diff % neutrophils 76.0 % 42.0-7 8.0 normal Not Available [facility] [address] [place] [address], [address], 09/09/2019 10:28:34 09/09/20 19 09/09/2019 CBC w/ auto diff % lymphocytes 12.6 % 11.0-4 7.0 normal Not Available [facility] [address] [place] [address], [address], 09/09/2019 10:28:34 09/09/20 19 09/09/2019 CBC w/ auto diff % monocytes 8.8 % 0.0-11 .0 normal Not Available [facility] [address] [place] [address], [address], 09/09/2019 10:28:34 09/09/20 19 09/09/2019 CBC w/ auto diff % eosinophils 1.9 % 0.0-7. 0 normal Not Available [facility] [address] [place] [address], [address], 09/09/2019 10:28:34 09/09/20 19 09/09/2019 CBC w/ auto diff % basophils 0.7 % 0.0-3. 0 normal Not Available [facility] [address] [place] [address], [address], 09/09/2019 10:28:34 09/09/20 19 09/09/2019 CBC w/ auto diff nucleated red cells 0.0 % 0.0-0. 9 normal Not Available [facility] [address] [place] [address], [address], 09/09/2019 10:28:34 09/09/20 19 09/09/2019 CBC w/ auto diff nucleated RBCs, absolute 0.00 K/uL not estab. normal Not Available [facility] [address] [place], [address], 09/09/2019 10:28:34 09/09/2009/09/2019 ldh, serum or plasm a LDH 248 U/L 135-21 4 high Not Available [facility] [address] [place], [address], 09/09/2019 11:26:41 09/09/2009/09/2019 vitam in B12 + folat e, serum or blood folic acid 18.4 NG/mL 4.8-24 .2 normal Not Available [facility] [address] [place], [address], 09/09/2019 11:43:22 09/09/2009/09/2019 vitam in B12 + folat e, serum or blood vitamin B12 718 pg/mL 232-12 45 normal Not Available [facility] [address] [place], [address], 09/09/2019 11:43:22 09/09/2009/19/2019 JAYDEN (anti nucle ar antib odies ) panel , serum JAYDEN screen NEGATI VE negati ve normal JAYDEN IFA is a first line scree n for detec ting the prese nce of up to appro ximat luis felipe 150 autoa ntibo dies in vario us autoi mmune disea ses. A negat ibis JAYDEN IFA resul t sugge sts an JAYDEN-a ssoci ated autoi mmune disea se is not prese nt at this time, but is not defin itive . If there is high clini alea suspi cion for Sjogr en's syndr ome, testi ng for anti- SS-A/ Ro antib sloan shoul d be consi dered . Anti- Danuta-1 antib sloan shoul d be consi dered for clini soheila suspe cted infla mmato ry myopa anastasia . AC-0: Negat ibis Inter natio nal Conse nsus on JAYDEN Patte rns (http s://d oi.or g/10. 1515/ [facility]- 2017- 0052) For addit ional infor roxanna monge refer to http: //sandip baig ics.c om/fa q/FAQ 177 (This link is being provi ded for infor david darnell/ educa sidney alfonso purpo ses only. ) TEST PERFO RMED AT: [facility] [place] [address] [place], [place] [phone] WHIT Carranza MD Not Available [facility] [address] [place] [address], [address], 09/19/2019 16:56:22 04/20/20 20 04/20/2020 CBC w/ auto diff white blood cells 5.9 K/uL 3.8-10 .8 normal Not Available [facility] [address] [place] [address], [address], 04/20/2020 11:52:50 04/20/2004/20/2020 CBC w/ auto diff red blood cells 4.40 M/uL 3.80-5 .20 normal Not Available [facility] [address] [place] [address], [address], 04/20/2020 11:52:50 04/20/2004/20/2020 CBC w/ auto diff hemoglobin 14.5 g/dL 12.0-1 6.0 normal Not Available [facility] [address] [place] [address], [address], 04/20/2020 11:52:50 04/20/2004/20/2020 CBC w/ auto diff hematocrit 42.0 % 35.0-4 7.0 normal Not Available [facility] [address] [place] [address], [address], 04/20/2020 11:52:50 04/20/20 20 04/20/2020 CBC w/ auto diff MCV 96 fL 80-100 normal Not Available [facility] [address] [place] [address], [address], 04/20/2020 11:52:50 04/20/20 20 04/20/2020 CBC w/ auto diff MCH 33 pg 26-35 normal Not Available [facility] [address] [place] [address], [address], 04/20/2020 11:52:50 04/20/20 20 04/20/2020 CBC w/ auto diff MCHC 34 g/dL 32-36 normal Not Available [facility] [address] [place] [address], [address], 04/20/2020 11:52:50 04/20/2004/20/2020 CBC w/ auto diff RDW 13.6 % 11.0-1 5.0 normal Not Available [facility] [address] [place] [address], [address], 04/20/2020 11:52:50 04/20/20 20 04/20/2020 CBC w/ auto diff MPV 9.0 fL 6.2-10 .5 normal Not Available [facility] [address] [place] [address], [address], 04/20/2020 11:52:50 04/20/20 20 04/20/2020 CBC w/ auto diff platelet count 132 K/uL 130-40 0 normal Not Available [facility] [address] [place] [address], [address], 04/20/2020 11:52:50 04/20/20 20 04/20/2020 CBC w/ auto diff neutrophil,a bsolute 3.9 K/uL 1.6-8. 4 normal Not Available [facility] [address] [place] [address], [address], 04/20/2020 11:52:50 04/20/20 20 04/20/2020 CBC w/ auto diff lymphocyte,a bsolute 1.3 K/uL 0.4-5. 1 normal Not Available [facility] [address] [place] [address], [address], 04/20/2020 11:52:50 04/20/20 20 04/20/2020 CBC w/ auto diff monocyte,abs olute 0.6 K/uL 0.0-1. 2 normal Not Available [facility] [address] [place] [address], [address], 04/20/2020 11:52:50 04/20/20 20 04/20/2020 CBC w/ auto diff eosinophil,a bsolute 0.1 K/uL 0.0-0. 8 normal Not Available [facility] [address] [place] [address], [address], 04/20/2020 11:52:50 04/20/20 20 04/20/2020 CBC w/ auto diff basophil,abs olute 0.1 K/uL 0.0-0. 3 normal Not Available [facility] [address] [place] [address], [address], 04/20/2020 11:52:50 04/20/20 20 04/20/2020 CBC w/ auto diff % neutrophils 65.0 % 42.0-7 8.0 normal Not Available [facility] [address] [place] [address], [address], 04/20/2020 11:52:50 04/20/20 20 04/20/2020 CBC w/ auto diff % lymphocytes 21.6 % 11.0-4 7.0 normal Not Available [facility] [address] [place] [address], [address], 04/20/2020 11:52:50 04/20/20 20 04/20/2020 CBC w/ auto diff % monocytes 10.0 % 0.0-11 .0 normal Not Available [facility] [address] [place] [address], [address], 04/20/2020 11:52:50 04/20/20 20 04/20/2020 CBC w/ auto diff % eosinophils 2.5 % 0.0-7. 0 normal Not Available [facility] [address] [place] [address], [address], 04/20/2020 11:52:50 04/20/20 20 04/20/2020 CBC w/ auto diff % basophils 0.9 % 0.0-3. 0 normal Not Available [facility] [address] [place] [address], [address], 04/20/2020 11:52:50 04/20/20 20 04/20/2020 CBC w/ auto diff nucleated red cells 0.1 % 0.0-0. 9 normal Not Available [facility] [address] [place] [address], [address], 04/20/2020 11:52:50 04/20/2004/20/2020 CBC w/ auto diff nucleated RBCs, absolute 0.00 K/uL not estab. normal Not Available [facility] [address] [place] [address], [address], 04/20/2020 11:52:50 04/20/20 20 04/20/2020 CMP, serum or plasm a glucose 109 mg/dL 74-100 high Not Available [facility] [address] [place] [address], [address], 04/20/2020 12:16:18 04/20/2004/20/2020 CMP, serum or plasm a blood urea nitrogen 24 mg/dL 6-20 high Not Available [facility] [address] [place] [address], [address], 04/20/2020 12:16:18 04/20/2004/20/2020 CMP, serum or plasm a creatinine 1.07 mg/dL 0.50-0 .95 high Not Available [facility] [address] [place] [address], [address], 04/20/2020 12:16:18 04/20/20 20 04/20/2020 CMP, serum or plasm a BUN/creatini ne ratio 22 (calc ) 10-20 high Not Available [facility] [address] [place] [address], [address], 04/20/2020 12:16:18 04/20/20 20 04/20/2020 CMP, serum or plasm a sodium 143 mmol/ L 136-14 5 normal Not Available [facility] [address] [place] [address], [address], 04/20/2020 12:16:18 04/20/20 20 04/20/2020 CMP, serum or plasm a potassium 4.3 mmol/ L 3.4-5. 0 normal Not Available [facility] [address] [place] [address], [address], 04/20/2020 12:16:18 04/20/20 20 04/20/2020 CMP, serum or plasm a chloride 107 mmol/ L 98-107 normal Not Available [facility] [address] [place] [address], [address], 04/20/2020 12:16:18 04/20/2004/20/2020 CMP, serum or plasm a carbon dioxide 24 mmol/ L 20-32 normal Not Available [facility] [address] [place] [address], [address], 04/20/2020 12:16:18 04/20/2004/20/2020 CMP, serum or plasm a anion gap 12 (calc ) 7-25 normal Not Available [facility] [address] [place] [address], [address], 04/20/2020 12:16:18 04/20/20 20 04/20/2020 CMP, serum or plasm a calcium 9.7 mg/dL 8.6-10 .2 normal Not Available [facility] [address] [place] [address], [address], 04/20/2020 12:16:18 04/20/20 20 04/20/2020 CMP, serum or plasm a total protein 7.0 g/dL 6.4-8. 3 normal Not Available [facility] [address] [place] [address], [address], 04/20/2020 12:16:18 04/20/20 20 04/20/2020 CMP, serum or plasm a albumin 4.4 g/dL 3.5-5. 2 normal Not Available [facility] [address] [place] [address], [address], 04/20/2020 12:16:18 04/20/20 20 04/20/2020 CMP, serum or plasm a globulin 2.6 g/dL_ (calc ) 1.5-4. 5 normal Not Available [facility] [address] [place] [address], [address], 04/20/2020 12:16:18 04/20/20 20 04/20/2020 CMP, serum or plasm a albumin/glob ulin ratio 1.7 (calc ) 1.1-2. 5 normal Not Available [facility] [address] [place] [address], [address], 04/20/2020 12:16:18 04/20/20 20 04/20/2020 CMP, serum or plasm a bilirubin, total 0.7 mg/dL 0.1-1. 2 normal Not Available [facility] [address] [place] [address], [address], 04/20/2020 12:16:18 04/20/2004/20/2020 CMP, serum or plasm a alkaline phosphatase 71 U/L 35-105 normal Not Available [facility] [address] [place] [address], [address], 04/20/2020 12:16:18 04/20/20 20 04/20/2020 CMP, serum or plasm a AST 26 U/L 0-32 normal Not Available [facility] [address] [place] [address], [address], 04/20/2020 12:16:18 04/20/20 20 04/20/2020 CMP, serum or plasm a ALT 21 U/L 0-33 normal Not Available [facility] [address] [place], [address], 04/20/2020 12:16:18 04/20/20 20 04/20/2020 CMP, serum or plasm a GFR 59 >= 60 abnormal Not Available [facility] [address] [place], [address], 04/20/2020 12:16:18 04/20/20 20 04/20/2020 CMP, serum or plasm a GFR non- 51 >= 60 abnormal NOT E NEW calcu latio n for GFR is based on the Natio nal Kidne y Found ation CKD-E PI equat ion and allow s for repor ting GFR value s great er than 60 mL/mi n/1.7 3 m2. This calcu latio n has not been valid ated for patie nts less than 18 yrs., pregn ant women and Hispa nics. Chron ic kidne y disea se is defin ed as kidne y damag e or GFR less than 60 mL/mi n/1.7 3 m2 for 3 month s or longe r. Not Available [facility] [address] [place], [address], 04/20/2020 12:16:18 09/11/20 19 09/11/2019 US, abdom en, limit ed [facility] [address] [place] [id number] Patien t Name: GINA Carranza Patien t : [birth year] 47 Patien t 4 Orderi ng Provid er: FROILAN GUZMANPER EXAM DATE: 2018 EXAM: US RIGHT UPPER QUADRA NT WITH SPLEEN HISTOR Y: Reduce d white blood cell count COMPAR LUIZA: None. FINDIN GS: Multip le transv erse and longit udinal images were genera caleb. The liver measur es 12.9 cm which is normal in size. Mild dilata tion of the extra and intrah epatic bile ducts. The gallbl adder surgic ally absent . No mechan ical etiolo gy is noted for the ductal dilata tion and it is felt to likely be reflec tive of post cholec ystect juve status . The common duct measur es 1 cm. The pancre atic bed is grossl y clear. Right kidney is 10.3 cm in the morpho logy is unrema rkable with no hydron ephros is or mass detect ed. The spleen measur es 11.2 cm which is upper limits of normal . No discre te spleni c lesion noted. IMPRES LY: 1. 1. Prior cholec ystect juve. Mild intra and extrah epatic biliar y ductal dilata tion likely reflec ts postch olecys tectom y status 2. The spleen is upper limits of normal in size with no focal lesion Interp reted By: Jason Man MD Electr onical ly Signed By: Jason Man MD on 2018 9:[address] Radiology [facility] [address] [place], [address], 09/23/2019 15:38:59 Result Notes None recorded. Procedures Surgical History Date Name Laterality Status Provider Name and Address Organization Details Recorded Time CABG completed [facility] 09/09/2019 09:08:09 Cholecystectomy completed [facility] 09/09/2019 09:08:17 open heart surgery completed Gonzalo [facility] 09/09/2019 09:08:34 Back Surgery completed Salmarik [facility] 09/09/2019 09:08:47 wrist repair completed [facility] 09/09/2019 09:09:41 debridement of leg ulcer completed [facility] 09/09/2019 09:10:18 Imaging Results None recorded. Procedure Notes None recorded. Medical Equipment None Reported. Allergies Allergen ID Allergen Name Allergen Category Reaction Reaction Severity Criticality Documentation Date Start Date Code Code System Note Provider Name and Address Organization Details Recorded Time 716748 Motrin medicatio n itching Not available Not available 09/09/2019 8 RxNorm Salma Billings [facility] 9 09:01:45 [id number] Product containin g penicilli n (product) medicatio n rash Not available Not available 09/09/2019 92287 8001 SNOMED Salma Billings [facility] 9 09:01:54 Medications Name Sig Start Date Stop Date Status Note LastModified by Organization Details LastModified Time Plaquenil 200 mg tablet Take 1 tablet twice a day by oral route. active Not Available Not Available No t Available vitamin [id number] B1 1,000 mcg-100 mg/mL injection solution Take every month by injection route. active Not Available Not Available No t Available alendronate 70 mg tablet Take 1 tablet every week by oral route. active Not Available Not Available No t Available aspirin 81 mg tablet,jenny yed release Take 1 tablet every day by oral route. active Not Available Not Available No t Available FiberCon 625 mg tablet Take 1 tablet every day by oral route. active Not Available Not Available No t Available Xanax 0.25 mg tablet Take 1 tablet 3 times a day by oral route as needed. active Not Available Not Available No t Available Lasix 20 mg tablet Take 1 tablet every day by oral route as needed. active Not Available Not Available No t Available cevimeline 30 mg capsule Take 1 capsule 3 times a day by oral route. active Not Available Not Available No t Available nitroglycer in 0.[address] 1 tablet as needed by sublingua l route. active Not Available Not Available No t Available Ditropan XL 10 mg tablet,exte nded release Take 1 tablet every day by oral route. active Not Available Not Available No t Available Lipitor 10 mg tablet Take 1 tablet every day by oral route. active Not Available Not Available No t Available colestipol 1 gram tablet Take 1 tablet twice a day by oral route. active Not Available Not Available No t Available atenolol 50 mg tablet Take 1 tablet every day by oral route. active Not Available Not Available No t Available Restasis 0.05 % eye drops in a dropperette INSTILL 1 DROP INTO AFFECTED EYE(S) BY OPHTHALMI C ROUTE EVERY 12 HOURS active Not Available Not Available No t Available Vitamin D 5,000 UI daily active Not Available Not Available No t Available Probiotic 10 billion cell capsule Take every day by oral route. 09/09 completed Not Available Not Available Not Available Creon 36,000 unit-114,00 0 unit-180,00 0 unit capsule,del ayed release Take 1 capsule 3 times a day by oral route with meals. active Not Available Not Available No t Available colchicine 0.6 mg capsule Take 1 capsule every day by oral route. active Not Available Not Available No t Available Vitals Date Recorded Body temperature Provider Name a nd Address Organization Details Last Updated DateTime 04/20/2020 98.6 [degF] [facility] 0 04/20/2020 12:51:11 Date Recorded Body height Body mass index (BMI) Body weight Heart rate Oxygen saturation Oxygen saturation in Arterial blood by Pulse oximetry Systolic blood pressure Diastolic blood pressure Provider Name and Address Organization Details Last Updated DateTime 0 157.48 cm 40.5 kg/m2 154732. 01 g 63 /min 97 % 97 % 130 mm[Hg] 72 mm[Hg] [facility] 13:[facility]17 Date Recorded Body weight Body mass index (BMI) Body height Heart rate Oxygen saturation Oxygen saturation in Arterial blood by Pulse oximetry Body temperature Systolic blood pressure Diastolic blood pressure Provider Name and Address Organization Details Last Updated DateTime 9 262870. 08 g 41.2 kg/m2 157.48 cm 65 /min 96 % 96 % 98.9 [degF] 122 mm[Hg] 62 mm[Hg] [facility] 9 09:19:53 Date Recorded Body height Heart rate Body temperature Body mass index (BMI) Body weight Systolic blood pressure Diastolic blood pressure Provider Name and Address Organization Details Last Updated DateTime 9 157.48 cm 68 /min 99.1 [degF] 41.4 kg/m2 722701. 63 g 136 mm[Hg] 66 mm[Hg] [facility]essi [facility] 9 15:09:42 Social History Question Answer Notes LastModified by Organizat ion Details LastModified Time Tobacco Smoking Status Never Smoker Yessi King [facility] 09/23/2019 15:10:42 How Much Tobacco Do You Chew? None [id number] Information not available 09/23/2019 Live Alone Or With Others? Alone [email or web address] Information not available 09/23/2019 Exposure To Smoke No [email or web address] Information not available 09/23/2019 Marital Status Informatio n not available 09/23/2019 What Was The Date Of Your Most Recent Tobacco Screening? 09/23/2019 Information not available 09/23/2019 How Many Children Do You Have? 1 Son 23 Years Ago [email or web address] Information not available 09/23/2019 How Much Tobacco Do You Smoke? No Information not available 04/20/2020 On What Date Was Tobacco Cessation Counseling Provided? 09/23/2019 [email or web address] Information not available 09/23/2019 How Many Years Have You Smoked Tobacco? 0 Information not available 04/20/2020 Sex: Female Functional Status Question Answer Note LastModified by Organizat ion Details LastModified Time What is your level of alcohol consumption? None [email or web address] Information not available 09/23/2019 Do you or have you ever used smokeless tobacco? Never used smokeless tobacco [email or web address] Information not available 09/23/2019 What is your occupation? Retired Information not available 09/23/2019 Do you or have you ever used e-cigarettes or vape? Never used electronic cigarettes [email or web address] Information not available 09/23/2019 Mental Status None recorded. Family History Relationship Description Onset Age of this Age Resolved Age Notes LastModified by Organization Details LastModified Time Mother Diabetes mellitus [email or web address] Not available 2018 09:10:34 Mother Heart disease [email or web address] Not available 2018 09:10:56 Brother Diabetes mellitus [email or web address] Not available 2018 09:10:34 Brother Heart disease [email or web address] Not available 2018 09:10:56 Father Family history of malignant neoplasm [email or web address] Not available 2018 09:10:42 Medical History Condition Response Depression Y Arthritis Y Heart Attack ([place]) Y Heart Disease Y Gynecological HistoryNo gynecological history recorded. Obstetrics History GPAL:G 0 P 0 0 0 0 Past Encounters Encounter ID Performer Location Encounter Start Date Encounter Closed Date Diagnosis/Indication Diagnosis SNOMED-CT Code Diagnosis ICD10 Code Diagnosis Note [id number] JASON WEISS MD [address]ARDIOLOG [address] [place] [address] 04/03/2017 13:10:27 04/03/2017 13:49:50 [id number] JASON WEISS MD [address]ARDIOLOG Y [address] [place] [id number] 09/25/2017 12:53:34 09/25/2017 14:36:54 [id number] JASON WEISS MD CARDIOLOG Y [address] [place] [address] 5 04/02/2018 09:28:26 04/02/2018 11:01:03 [id number] JASON WEISS MD CARDIOLOG Y [address] [place] [address] 5 10/22/2018 13:48:50 10/22/2018 15:10:00 [id number] JASON WEISS MD CARDIOLOG Y [address] [place] [id number] 02/07/2019 11:09:23 02/07/2019 13:35:19 [id number] JASON WEISS MD CARDIOLOG Y [address] ,[address] [place] [address] 5 05/08/2019 13:19:05 05/08/2019 13:58:46 [id number] FROILAN BAGLEY MD HEM/ONC [place] CLOSED [address] [place] [address] 09/09/2019 08:55:56 09/09/2019 09:56:44 Rheumatoid arthritis 12416710 M06.[address] Tom. Pt is on plaquenil and cevimeline . Gout 69607548 M10.9 Pt has begun colchicine . Body mass index 30+ - obesity 933202604 Z68.41 Encourage exercise and weight loss. Leukopenia 21490172 D72. 819 Differenti al includes for this and thrombocyt openia include vitamin deficiency , Felty's syndrome as well as LGL. Also, worrisome for another autoimmune such s lupus. Medication effect including colchicine and plaquenil. We will obtain here flow cytometry, CBC, LDH, JAYDEN, splenic US, B12/folate . Thrombocyt openic disorder 428413622 D69.6 As above. [id number] FROILAN BAGLEY MD HEM/ONC SB CLOSED [address] [place], [place] [phone] 09/23/2019 14:46:58 09/23/2019 15:53:02 Leukopenia 82627915 D72.819 Differenti al includes for this and thrombocyt openia included vitamin deficiency , Felty's syndrome as well as LGL. Also, worrisome for another autoimmune such s lupus. Medication effect including colchicine and plaquenil. However labs reviewed including flow cytometry, CBC, LDH, JAYDEN, and B12/folate are normal with the exception of platelets of 128. Her abdominal US revealed borderline spleen size as well as mild intra/extr a biliary dilatation most likely secondary to cholecyste ctomy. [id number] JASON WEISS MD CARDIOLOG Y [place] [address] [place], [place] [phone] 10/24/2019 12:38:41 10/24/2019 13:57:59 [id number] FROILAN BAGLEY MD HEM/ONC SB CLOSED [address] [facility] [address] [place] [id number] 04/20/2020 12:49:16 04/20/2020 13:27:21 Leukopenia [id number] D72.819 Labs today are normal. This has resolved. Differenti al included for this and thrombocyt openia included vitamin deficiency , Felty's syndrome as well as LGL. Also, worrisome for another autoimmune such s lupus. Medication effect including colchicine and plaquenil. However labs reviewed including flow cytometry, CBC, LDH, JAYDEN, and B12/folate are normal with the exception of platelets of 128. Her abdominal US 09/11/19 revealed borderline spleen size as well as mild intra/extr a biliary dilatation most likely secondary to cholecyste ctomy. [id number] JASON WEISS MD CARDIOLOG Y [place] [address] [place] [id number] 05/04/2020 13:42:38 05/04/2020 14:45:16 [id number] JASON WEISS MD CARDIOLOG Y [address] [place], [place] [phone] 11/23/2020 14:04:41 11/23/2020 15:54:54 [id number] JASON WEISS MD CARDIOLOG Y [address] [place] [id number] 04/22/2021 10:16:00 04/22/2021 10:42:04 [id number] YELENA GARCIA PA-C CARDIOLOG Y [address] ,[address] [place] [address] 5 10/20/2021 13:30:08 10/20/2021 15:19:47 [id number] YELENA GARCIA PA-C CARDIOLOG Y [address] ,[address] [place] [address] 5 04/25/2022 13:10:58 04/25/2022 14:17:13 [id number] YELENA GARCIA PA-C CARDIOLOG Y [address] ,[address] [place] [address] 5 10/25/2022 13:07:16 10/25/2022 14:19:06 [id number] MIGUEL SALAZAR MD CARDIOLOG Y SB [address] [place] [address] 1 04/19/2023 08:57:28 04/19/2023 12:59:26 [id number] [place] [address] [place] [address] 1 10/23/2023 13:19:59 10/23/2023 15:24:43 [id number] MIGUEL SALAZAR MD CARDIOLOG Y SB [address] [place] [address] 1 02/28/2024 14:13:45 02/28/2024 15:43:14 [id number] MIGUEL SALAZAR MD CARDIOLOG Y SB [address] [place] [address] 1 04/24/2024 13:47:52 05/02/2024 11:17:54 [id number] MIGUEL SALAZAR MD CARDIOLOG Y SB [address] [place] [address] 1 10/29/2024 12:55:01 10/29/2024 14:32:18 Health Concerns Section Related Observation LastModified by Organization Detai ls LastModified Time None Recorded Concern Status LastModified by Organization Details LastModified Time None Recorded Advance Directives Directive None Recorded Payers Insurance Date Sequence Insurance Name Policy Number Policy Gaines Covered Member ID Gaines Member ID Guarantor Name 04/25/2025 2 [place] [id number] Gina Hector [id number] Gina Hector 04/25/2025 1 [place] Gina Hector [id number] Gina Hector 10/07/2020 2 [id number] Gina Hector [id number] Gina Hector Notes Date Note Type Note Provider Name and Address Organization Details Recorded Time 9 text/html [place] HPIReported bypatient.Advanced Directives / [employer] AuthorizationsAdvanced Directives? YES Dischargedischarge disposition stable Distress ScreeningHas the distress screening been completed in the last 45 days? YES; Distress level 5 Practical Problemsno practical problems Family Problemsno family problems Emotional Problemsdepression; anxiety Spiritual/Religiousspiritua l/mandaen problems? NO Physical Problemsno physical problems Nutrition ScreeningNutrition Screening YES; Nutrition counseling last 6 months? NO; Nutrition Protocol implemented? NO Mrs. Hector is a pleasant 74 yo WF who was referred to us today in consultation at the request of Dr. Tom of thrombocytopenia and leukopenia. Pt with known rheumatoid arthritis and is followed by her. RA was diagnosed approximately in 1993. Pt has been treated with plaquenil, cevimeline. Pt has had labs on 09/03/19 which revealed WBC on 3.6, platelets of 112. Pt comments she has had abnormal labs for several years. PMHx including illnesses, medications, allergies, family/social history and complete ROS per intake note. FROILAN BAGLEY MD [address] [place] [address], [phone], [facility] 09/09/2019 09:47:03 9 text/html [place] HPIReported bypatient.Distress ScreeningHas the distress screening been completed in the last 45 days? YES; Distress level 3 Practical Problemshousing stress;financial/insurance stress;transportation stress Family Problemsfamily health issue Emotional Problemsdepression;nervousn ess;worry Spiritual/Religiousspiritua l/mandaen problems? NO Physical Problemsdiarrhea;eating/ing estion problem;fatigue Nutrition ScreeningNutrition Screening NO Mrs. Hector is a pleasant 74 yo WF is here today for FU of consultation at the request of Dr. Tom of thrombocytopenia and leukopenia. Pt with known rheumatoid arthritis and is followed by her. RA was diagnosed approximately in 1993. Pt has been treated with plaquenil, cevimeline. Pt has had labs on 09/03/19 which revealed WBC on 3.6, platelets of 112. Pt comments she has had abnormal labs for several years. PMHx including illnesses, medications, allergies, family/social history and complete ROS per intake note. Pt has had endoscopies on 08/30/[address] Perez which revealed polyps, diverticulosis per pt. FROILAN BAGLEY MD [address] [place] [address], [phone], [facility] 09/23/2019 15:46:20 0 text/html HPIReported bypatient.Advanced Directives / [employer] AuthorizationsAdvanced Directives? NO Dischargedischarge disposition stable Distress ScreeningHas the distress screening been completed in the last 45 days? YES; Distress level 3 Practical Problemsno practical problems;transportation stress Family Problemsno family problems Emotional Problemsdepression;fears;ne rvousness;sadness;worry Spiritual/Religiousspiritua l/mandaen problems? NO Physical Problemseating/ingestion problem;fatigue;feeling swollen Nutrition ScreeningNutrition Screening NO Mrs. Hector is a pleasant 74 yo WF is here today for FU of consultation at the request of Dr. Tom of thrombocytopenia and leukopenia. Pt with known rheumatoid arthritis and is followed by her. RA was diagnosed approximately in 1993. Pt has been treated with plaquenil, cevimeline. Pt has had labs on 09/03/19 which revealed WBC on 3.6, platelets of 112. Pt comments she has had abnormal labs for several years. PMHx including illnesses, medications, allergies, family/social history and complete ROS per intake note. Pt has had endoscopies on 08/30/[address] Perez which revealed polyps, diverticulosis per pt. 01/02, pt was hospitalized for retained stone in her CBD. She had an ERCP under the care of Dr. Perez. FROILAN BAGLEY MD [address] [place] [address], [phone], [facility] 04/20/2020 13:19:58 OBGyn Episode No OBEpisode recorded.
--- OUTSIDE RECORDS SUMMARY | 2025-05-04 12:51 | XMS_ITS | Data Portability ---
Author Organization [facility] [place] [facility] Address [address] [place] [address] Care Team Providers Care Earth Observations Chief Scientist Name Role Phone MIGDALIA KHANNA Primary Care Provider MIGUEL SALAZAR [employer] Processing Supervisor Assessment Encounter Date Assessment Date Assessment LastModified by Organization Details LastModified Time 04/19/2023 04/19/2023 Ms. Hector is a very pleasant, 77 y.o. patient with a h/o CAD, h/o CABG, hypertension, rheumatoid arthritis, GERD, osteoporosis who was last seen in the hospital in late February 2023. At that time, she underwent Lexiscan nuclear stress testing to evaluate chest discomfort. This revealed normal left ventricular ejection fraction of 59%, elevated 3 times daily ratio 1.47, normal LV volumes, and a moderate anterior apical reversible defect suggestive of ischemia . Subsequently, she underwent coronary angiography as well as bypass graft angiography. This was carried out by ar on March 10 and revealed ostial RCA 100% occlusion, multiple 80-90% stenoses in the proximal LAD with 100% mid occlusion, patent left main, and luminal regularities in the left circumflex. Bypass is or imaging revealed LOPEZ-LAD that was patent, SVG-distal RCA that was patent, SVG-OM that had diffuse stenosis in the ostial to proximal portion of that vessel as well as some spasm. Also during that hospitalization , she underwent echocardiogram, and this revealed a normal left ventricular ejection fraction, mild MR, mild TR, estimated PA systolic pressure of 35 mmHg. Since that visit, the patient denies chest pain, SOA, THOMPSON, PND, orthopnea, LE edema, palpitations, near syncope, and syncope. She reports that several of her friends have recently . This high level of emotional stress and anxiety has contributed to a jittery feeling internally and some burning type mid chest discomfort that she attributes to reflux and anxiety. Recent overall health is reported as stable. RTC: 6 months with EKG Not available 04/19/2023 12:45:11 10/23/2023 10/23/2023 Ms. Hector is a very pleasant, 78 y.o. patient with a h/o CAD, h/o CABG, hypertension, rheumatoid arthritis, GERD, osteoporosis who was last seen in the office on 04/19/2023. To review: At that time, she underwent Lexiscan nuclear stress testing to evaluate chest discomfort. This revealed normal left ventricular ejection fraction of 59%, elevated 3 times daily ratio 1.47, normal LV volumes, and a moderate anterior apical reversible defect suggestive of ischemia . Subsequently, she underwent coronary angiography as well as bypass graft angiography. This was carried out by me on March 10 and revealed ostial RCA 100% occlusion, multiple 80-90% stenoses in the proximal LAD with 100% mid occlusion, patent left main, and luminal regularities in the left circumflex. Bypass imaging revealed LOPEZ-LAD that was patent, SVG-distal RCA that was patent, SVG-OM that had diffuse stenosis in the ostial to proximal portion of that vessel as well as some spasm. Also during that hospitalization , she underwent echocardiogram, and this revealed a normal left ventricular ejection fraction, mild MR, mild TR, estimated PA systolic pressure of 35 mmHg. At last visit, the patient denied chest pain, SOA, THOMPSON, PND, orthopnea, LE edema, palpitations, near syncope, and syncope. She reported that several of her friends have recently . This high level of emotional stress and anxiety has contributed to a jittery feeling internally and some burning type mid chest discomfort that she attributed to reflux and anxiety. Recent overall health is reported as stable. Patient returns to the clinic today for a scheduled follow-up visit. RTC: 6 months Not available 10/23/2023 14:46:11 02/28/2024 02/28/2024 Ms. Hector is a very pleasant, 78 y.o. patient with a h/o CAD, h/o CABG, hypertension, rheumatoid arthritis, GERD, osteoporosis who was last seen in the office on 10/23/2023. To review: At that time, she underwent Lexiscan nuclear stress testing to evaluate chest discomfort. This revealed normal left ventricular ejection fraction of 59%, elevated 3 times daily ratio 1.47, normal LV volumes, and a moderate anterior apical reversible defect suggestive of ischemia . Subsequently, she underwent coronary angiography as well as bypass graft angiography. This was carried out by me on March 10, 2023, and revealed ostial RCA 100% occlusion, multiple 80-90% stenoses in the proximal LAD with 100% mid occlusion, patent left main, and luminal regularities in the left circumflex. Bypass imaging revealed LOPEZ-LAD that was patent, SVG-distal RCA that was patent, SVG-OM that had diffuse stenosis in the ostial to proximal portion of that vessel as well as some spasm. Also during that hospitalization , she underwent echocardiogram, and this revealed a normal left ventricular ejection fraction, mild MR, mild TR, estimated PA systolic pressure of 35 mmHg. At previous office visits, the patient denied chest pain, SOA, THOMPSON, PND, orthopnea, LE edema, palpitations, near syncope, and syncope. She reported that several of her friends have recently . This high level of emotional stress and anxiety has contributed to a jittery feeling internally and some burning type mid chest discomfort that she attributed to reflux and anxiety. Recent overall health is reported as stable. Since the October 2023 office visit, patient has been evaluated in the ER at [facility] on 01/15/2024 for chest pain. She was ruled out for ACS, and sent home. Since then, she reports occasional SOA/THOMPSON and chest discomfort as well as palpitations. She went to the ER twice more last month, and wonders if her recent symptoms were related to anxiety. Patient returns to the clinic today for a scheduled follow-up visit. RTC: 2-3 months with EKG Not available 02/28/2024 18:47:43 04/24/2024 04/24/2024 Ms. Hector is a very pleasant, 78 y.o. patient with a h/o CAD, h/o CABG, hypertension, rheumatoid arthritis, GERD, osteoporosis who was last seen in the office on 02/28/2024. To review: At that time, she underwent Lexiscan nuclear stress testing to evaluate chest discomfort. This revealed normal left ventricular ejection fraction of 59%, elevated 3 times daily ratio 1.47, normal LV volumes, and a moderate anterior apical reversible defect suggestive of ischemia . Subsequently, she underwent coronary angiography as well as bypass graft angiography. This was carried out by ar on March 10, 2023, and revealed ostial RCA 100% occlusion, multiple 80-90% stenoses in the proximal LAD with 100% mid occlusion, patent left main, and luminal regularities in the left circumflex. Bypass imaging revealed LOPEZ-LAD that was patent, SVG-distal RCA that was patent, SVG-OM that had diffuse stenosis in the ostial to proximal portion of that vessel as well as some spasm. Also during that hospitalization , she underwent echocardiogram, and this revealed a normal left ventricular ejection fraction, mild MR, mild TR, estimated PA systolic pressure of 35 mmHg. At previous office visits, the patient denied chest pain, SOA, THOMPSON, PND, orthopnea, LE edema, palpitations, near syncope, and syncope. She reported that several of her friends have recently . This high level of emotional stress and anxiety has contributed to a jittery feeling internally and some burning type mid chest discomfort that she attributed to reflux and anxiety. Recent overall health is reported as stable. Since the October 2023 office visit, patient has been evaluated in the ER at [facility] on 01/15/2024 for chest pain. She was ruled out for ACS, and sent home. Since then, she reports occasional SOA/THOMPSON and chest discomfort as well as palpitations. She went to the ER twice more last month, and wonders if her recent symptoms were related to anxiety. Her last office visit with ar was 02/28/2024. Patient returns to the clinic today for a scheduled follow-up visit. RTC: Not available 04/24/2024 13:50:33 10/29/2024 10/29/2024 Ms. Hector is a very pleasant, 79 y.o. patient with a h/o CAD, h/o CABG, hypertension, rheumatoid arthritis, GERD, osteoporosis who was last seen in the office on 04/24/2024. To review: At that time, she underwent Lexiscan nuclear stress testing to evaluate chest discomfort. This revealed normal left ventricular ejection fraction of 59%, elevated 3 times daily ratio 1.47, normal LV volumes, and a moderate anterior apical reversible defect suggestive of ischemia . Subsequently, she underwent coronary angiography as well as bypass graft angiography. This was carried out by on March 10, 2023, and revealed ostial RCA 100% occlusion, multiple 80-90% stenoses in the proximal LAD with 100% mid occlusion, patent left main, and luminal regularities in the left circumflex. Bypass imaging revealed LOPEZ-LAD that was patent, SVG-distal RCA that was patent, SVG-OM that had diffuse stenosis in the ostial to proximal portion of that vessel as well as some spasm. Also during that hospitalization , she underwent echocardiogram, and this revealed a normal left ventricular ejection fraction, mild MR, mild TR, estimated PA systolic pressure of 35 mmHg. At previous office visits, the patient denied chest pain, SOA, THOMPSON, PND, orthopnea, LE edema, palpitations, near syncope, and syncope. She reported that several of her friends have recently . This high level of emotional stress and anxiety has contributed to a jittery feeling internally and some burning type mid chest discomfort that she attributed to reflux and anxiety. Recent overall health is reported as stable. Since the October 2023 office visit, patient has been evaluated in the ER at [facility] on 01/15/2024 for chest pain. She was ruled out for ACS, and sent home. Since then, she reports occasional SOA/THOMPSON and chest discomfort as well as palpitations. She went to the ER twice more after that, and wonders if her recent symptoms were related to anxiety. Her last office visits with me were on 02/28/2024 and 04/24/24. She went to the ER on 05/26/24 with shoulder pain & loud heart beats. Patient returns to the clinic today for a scheduled follow-up visit. RTC: 6 months with EKG [email or web address] Not available 10/29/2024 19:34:29 Plan of Treatment Reminders Order Date Submit Date Provider Last Modified By Organization Details Last Modified Time Details Appointments RECHECK 2024 03:15P Jorge SALAZAR MD Not available Not available Not available Lab None recorded . Referral None recorded . Procedures None recorded . Surgeries None recorded . Imaging None recorded . Medication Orders None recorded . Patient TargetsNo targets recorded. Patient Instructions Encounter Date Encounter Id Patient Instructions Last Modified By Organization Details Last Modified Time 02/28/2024 [id number] body mass index: care instructions Not available 02/28/2024 18:49:40 high blood pressure: care instructions Not available 02/28/2024 18:49:40 10/29/2024 [id number] body mass index: care instructions Not available 10/29/2024 19:35:08 high blood pressure: care instructions Not available 10/29/2024 19:35:08 Reason for Referral None Reported. Results Created Date Observation Date Name Description Value Unit Range Abnormal Flag Note LastModifiedBy Organization Detail LastModifiedTime 10/24/2010/23/2023 elect rocar diogr am No observ ation record ed. BARCODE Not Available 2022 08:53:54 01/24/20 24 01/19/2024 US, doppl er echoc ardio gram, w/ color flow No observ ation record ed. [address], [place], [id number], 01/29/2024 09:10:07 01/30/20 24 01/19/2024 US, doppl er echoc ardio gram, w/ color flow No observ ation record ed. [address], [place], [id number], 01/31/2024 13:06:02 01/30/20 24 01/19/2024 US, doppl er echoc ardio gram, w/ color flow No observ ation record ed. [address] (Med Record) [address], [place], [address], 01/31/2024 13:05:34 01/30/20 24 01/15/2024 elect rocar diogr am No observ ation record ed. [address], [place], [id number], 01/31/2024 13:05:20 02/12/20 24 01/19/2024 US, doppl er echoc ardio gram, w/ color flow No observ ation record ed. [address], [place], [id number], 02/12/2024 15:34:23 02/12/20 24 02/06/2024 event monit or No observ ation record ed. [email or web address], [place], [address], 02/13/2024 11:15:22 05/02/20 24 04/24/2024 elect geetha alex am No observ ation record ed. BARCODE Not Available 2023 08:45:48 Result Notes None recorded. Problems Name Problem SNOMED Code Status Onset Date Resolution Date Notes Provider Name and Address Organization Details Recorded Time Coronary arteriosc lerosis in [place] artery 934729336111 7 Active 2014 From Automated Load;Prov ider: Jason Amado;Stat us: Active [facility] 0 15:08:54 Hyperlipi demia 49504152 Active 2014 From Automated Load;Prov ider: Jason Amado;Stat us: Active [facility] 0 15:08:54 Problem Notes None recorded. Procedures Surgical History Date Name Laterality Status Provider Name and Address Organization Details Recorded Time 04/24/20 24 EKG completed MIGUEL SALAZAR MD [address] [place] [address], [phone], [facility] 04/26/2024 11:09:13 10/23/20 23 EKG completed MIGUEL SALAZAR MD [address] [place] [address], [phone], [facility] 10/23/2023 14:45:41 10/25/20 22 EKG completed YELENA GARCIA PA-C [address] [place] [address], [phone], [facility] 10/25/2022 14:05:38 04/25/20 22 EKG completed YELENA ANTOLIN GARCIA [address] [place], [phone], [facility] 04/25/2022 14:01:56 10/20/20 21 EKG completed YELENA GARCIA PA-C [address] [place], [phone], [facility] 10/20/2021 14:58:02 10/12/20 10 Cardiac Catheterization completed [facility] 03/29/2017 15:44:16 09/13/20 02 Cardiac Surgery completed [facility] 03/29/2017 15:43:45 Other completed [facility] 03/29/2017 15:43:14 Cholecystectomy completed [facility] 03/29/2017 15:43:26 Other completed [facility] 03/29/2017 15:44:26 Other completed [facility] 03/29/2017 15:44:34 Other completed [facility] 03/29/2017 15:44:42 Other completed Leidy [facility] 03/29/2017 15:44:50 Imaging Results None recorded. Procedure Notes None recorded. Medical Equipment None Reported. Allergies Allergen ID Allergen Name Allergen Category Reaction Reaction Severity Criticality Documentation Date Start Date Code Code System Note Provider Name and Address Organization Details Recorded Time 769336 Motrin medicatio n itching Not available Not available 10/06/20162009 8 RxNorm React ion: ITCHI NG; Comme nt: Creat ed By: Marge rivas Date: 08/31 3:29: 43 PM; Not Available [facility] 6 14:10:00 [id number] Product containin g penicilli n (product) medicatio n rash Not available Not available 10/07/20162009 60344 8001 SNOMED React ion: RASH; Comme nt: Creat ed By: Marge rivas Date: 08/31 3:29: 20 PM; Not Available [facility] 6 03:51:38 Medications Name Sig Start Date Stop Date Status Note LastModified by Organization Details LastModified Time Plaquenil 200 mg tablet Two times a day active Duration : 10 days;Dilan quency: bid;Medi cation Descript ion: hydroxyc hloroqui ne; Dosage:1 ; Route:or al; refills: 0; Quantity :14 tablet Not Available Not Available Not Available tizanidin e 4 mg tablet Take 1 tablet twice a day by oral route as needed. 05/04 completed Not Available Not Available Not Available alendrona te 70 mg tablet Every week 04/22 completed Frequenc y: Every week;Alt Frequenc y: as direct.; Medicati on Descript ion: alendron ate; Dosage:1 ; Route:or al; refills: 0; Quantity :4 tablet Not Available Not Available Not Available FiberCon 625 mg tablet Daily active Frequenc y: daily;Al t Frequenc y: as direct.; Medicati on Descript ion: polycarb ophil; Dosage:1 ; Route:or al; refills: 0 Not Available Not Available Not Available famotidin e 20 mg tablet Take 1 tablet every day by oral route at bedtime. active Not Available Not Available No t Available Xanax 0.25 mg tablet Two to three times a day active Frequenc y: bid-tid; Alt Frequenc y: as direct.; Medicati on Descript ion: alprazol am; Dosage:1 ; Route:or al; refills: 0; Quantity :90 tablet Not Available Not Available Not Available Lasix 20 mg tablet Take 1 tablet every day by oral route. active does not take daily Not Available Not Available Not Available cevimelin e 30 mg capsule Take 1 capsule 3 times a day by oral route. active Not Available Not Available No t Available nitroglyc philip 0.4 mg sublingua l tablet TAKE DIRECTED FOR CHEST PAIN 2023 active Not Available Not Available Not Avai lable aspirin 81 mg tablet Daily active Duration : 30 days;Dilan quency: daily;Me dication Descript ion: aspirin; Dosage:1 ; Route:or al; refills: 0 Not Available Not Available Not Available Lipoflavo noid tablet 05/22 /2017 completed Duration : 10 days;Med ication Descript ion: multivit floyd; Route:or al; refills: 0; Quantity :30 capsule Not Available Not Available Not Available Ditropan XL 10 mg tablet,ex tended release Daily 10/29 completed Frequenc y: daily;Al t Frequenc y: as direct.; Medicati on Descript ion: oxybutyn in; Dosage:1 ; Route:or al; refills: 5; Quantity :30 tablet, extended release Not Available Not Available Not Available Lipitor 10 mg tablet Every night at bedtime active Frequenc y: qhs;Medi cation Descript ion: atorvast atin; Dosage:1 ; Route:or al; refills: 0 Not Available Not Available Not Available colestipo l 1 gram tablet Take 1 tablet twice a day by oral route. active Not Available Not Available No t Available atenolol 50 mg tablet Every night at bedtime active Frequenc y: qhs;Medi cation Descript ion: atenolol ; Dosage:1 ; Route:or al; refills: 0 Not Available Not Available Not Available Restasis 0.05 % eye drops in a dropperet te Every morning active Frequenc y: qam;Alt Frequenc y: as direct.; Medicati on Descript ion: cycloSPO RINE ophthalm ic; Route:op hthalmic ; refills: 0 Not Available Not Available Not Available Lyrica 75 mg capsule Three times a day 04/03 completed Frequenc y: tid;Alt Frequenc y: as direct.; Medicati on Descript ion: pregabal in; Dosage:1 ; Route:or al; refills: 0; Quantity :90 capsule Not Available Not Available Not Available nystatin 04/03 completed Duration : 10 days;Med ication Descript ion: nystatin ; refills: 0; Quantity :14 Not Available Not Available Not Available Vitamin D Take one tablet twice weekly active Not Available Not Available No t Available Wellbutri n daily 09/25 completed Not Available Not Available Not Available Probiotic Formula 10 billion cell(2 billion ea) capsule Daily 05/04 completed Frequenc y: daily;Al t Frequenc y: as direct.; Medicati on Descript ion: bifidoba cterium- lactobac illus; Dosage:1 ; Route:or al; refills: 0 Not Available Not Available Not Available Creon 36,000 unit-114, 000 unit-180, 000 unit capsule,d elayed release Take 1 capsule 3 times a day by oral route. active Not Available Not Available No t Available potassium chloride ER 20 mEq tablet,ex tended release Take 1 tablet every day by oral route. active Not Available Not Available No t Available colchicin e 0.6 mg capsule Take 1 capsule every day by oral route. active Not Available Not Available No t Available Vitamin B12 injectio ns 1 x month active Not Available Not Available No t Available bupropion HCl 150 mg tablet,12 hr sustained -release( smoking deterrent ) Take 1 tablet every day by oral route. 10/22 completed Not Available Not Available Not Available Vitals Date Recorded Body height Body mass index (BMI) Body weight Oxygen saturation Oxygen saturation in Arterial blood by Pulse oximetry Heart rate Systolic blood pressure Diastolic blood pressure Provider Name and Address Organization Details Last Updated DateTime 4 162.56 cm 34 kg/m2 83466.0 1 g 97 % 97 % 64 /min 120 mm[Hg] 68 mm[Hg] Magda Zhong [facility] 4 15:03:41 Date Recorded Body height Body mass index (BMI) Body weight Heart rate Respiratory rate Oxygen saturation Oxygen saturation in Arterial blood by Pulse oximetry Systolic blood pressure Diastolic blood pressure Provider Name and Address Organization Details Last Updated DateTime 3 162.56 cm 34.1 kg/m2 09940.3 9 g 59 /min 16 /min 96 % 96 % 120 mm[Hg] 78 mm[Hg] Maddi Llanes [facility] 3 09:29:27 Date Recorded Body height Body mass index (BMI) Body weight Respiratory rate Heart rate Oxygen saturation Oxygen saturation in Arterial blood by Pulse oximetry Systolic blood pressure Diastolic blood pressure Provider Name and Address Organization Details Last Updated DateTime 4 162.56 cm 34.4 kg/m2 96319.5 7 g 16 /min 58 /min 98 % 98 % 124 mm[Hg] 66 mm[Hg] Lo Ramirez [facility] 4 14:52:40 Date Recorded Body height Body mass index (BMI) Body weight Heart rate Oxygen saturation Oxygen saturation in Arterial blood by Pulse oximetry Systolic blood pressure Diastolic blood pressure Provider Name and Address Organization Details Last Updated DateTime 3 162.56 cm 34.8 kg/m2 55751.4 6 g 58 /min 97 % 97 % 122 mm[Hg] 65 mm[Hg] Emily Malloy [facility] 3 13:51:20 Date Recorded Body height Oxygen saturation Oxygen saturation in Arterial blood by Pulse oximetry Heart rate Systolic blood pressure Diastolic blood pressure Provider Name and Address Organization Details Last Updated DateTime 4 162.56 cm 98 % 98 % 65 /min 140 mm[Hg] 70 mm[Hg] Magda Zhong [facility] 4 14:03:05 Social History Question Answer Notes LastModified by Organizat ion Details LastModified Time Tobacco Smoking Status Never Smoker Leidy Ryder [facility] 03/29/2017 15:41:57 How Much Tobacco Do You Chew? None Information not available 11/23/2020 Marital Status Informatio n not available 03/29/2017 What Was The Date Of Your Most Recent Tobacco Screening? 10/29/2024 Information not available 10/29/2024 How Many Children Do You Have? 1 Information not available 03/29/2017 What Is Your Relationship Status? [email or web address] Information not available 10/23/2023 How Much Tobacco Do You Smoke? No Information not available 11/23/2020 Has Tobacco Cessation Counseling Been Provided? No Information not available 02/28/2024 Have You Recently Traveled Abroad? No [email or web address] Information not available 10/20/2021 Sex: Female Functional Status Question Answer Note LastModified by Organizat ion Details LastModified Time Do you or have you ever used any other forms of tobacco or nicotine? No Information not available 02/28/2024 Do you or have you ever used smokeless tobacco? Never used smokeless tobacco Information not available 10/24/2019 Are you currently employed? 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 Information not available 03/29/2017 Do you or have you ever used e-cigarettes or vape? Never used electronic cigarettes [email or web address] Information not available 10/24/2019 Mental Status None recorded. Family History Relationship Description Onset Age of this Age Resolved Age Notes LastModified by Organization Details LastModified Time Unspecified Relation Family history of malignant neoplasm colon Not available 2016 15:41:25 Unspecified Relation Diabetes mellitus Not available 2016 15:41:30 Unspecified Relation Heart disease Not available 2016 15:41:36 Unspecified Relation Hypertensive disorder Not available 2016 15:41:41 Medical History Condition Response Heart Problems Y Coronary Artery Disease Y Atrial Fibrillation N Thyroid Disease N Heart Conditions Y Implanted Cardiac Device N Heart Arrhythmia N Thyroid Problems N Lung Disease N COPD N Peripheral Arterial Disease N Pacemaker N Nervous Illness Y Edema Y Chest Pain Y Heart Attack (ND) Y Ulcers N Diabetes N Rheumatic Fever N Hiatal hernia N Heart Murmur N Tuberculosis N AIDS/HIV N Hyperlipidemia Y Acid Reflux (GERD) Y Cancer N Stroke N Asthma N Cardiac Disease Y History of Blood Thinners Y Peripheral Vascular Disease N Blood Thinners Y Shortness of Breath N Jaundice N Sleep Apnea N GERD/Reflux Y Warfarin Management N High Cholesterol Y Heart Disease Y Restless leg syndrome N Arrhythmia N Hypertension Y Endocrine Disorder N Gynecological HistoryNo gynecological history recorded. Obstetrics History GPAL:G 0 P 0 0 0 0 Immunizations Vaccine Type Date Status Note Provider Nam e and Address Organization Details Recorded Time COVID-19, mRNA, LNP-S, PF, 100 mcg/0.5mL dose or 50 mcg/0.25mL dose 12/09/2020 completed Emily Malloy [facility] 10/20/2021 14:10:21 COVID-19, mRNA, LNP-S, PF, 100 mcg/0.5mL dose or 50 mcg/0.25mL dose 01/06/2021 completed Emily Malloy [facility] 10/20/2021 14:10:37 COVID-19, mRNA, LNP-S, PF, 100 mcg/0.5mL dose or 50 mcg/0.25mL dose 08/11/2021 jeremy Malloy [facility] 10/20/2021 14:10:54 Past Encounters Encounter ID Performer Location Encounter Start Date Encounter Closed Date Diagnosis/Indication Diagnosis SNOMED-CT Code Diagnosis ICD10 Code Diagnosis Note [id number] JASON AMADO MD CARDIOLOG Y [address] [place], [place] [phone] 04/03/2017 13:10:27 04/03/2017 13:49:50 Coronary arteriosclerosis in [place] artery 4326177027 107 I25.10 Medication changes, as well as new medication s were reviewed and discussed in detail including benefit and risk of therapy. The patient is otherwise doing well on current management . No new active problems identified . Chronic problems are all stable. Patient is to continue current regimen without change. All questions answered and regimen reviewed. Patient is to call for any change in status. Hyperlipidemia 51549135 E78.5 reviewed outside lipid studies. All parameters are in appropriat e range. She is to continue her current regimen. [id number] JASON AMADO MD CARDIOLOG Y [address] [place] [address] 09/25/2017 12:53:34 09/25/2017 14:36:54 Coronary arteriosclerosis in [place] artery [id number] 107 I25.10 Medication changes, as well as new medication s were reviewed and discussed in detail including benefit and risk of therapy. The patient is otherwise doing well on current management . No new active problems identified . Chronic problems are all stable. Patient is to continue current regimen without change. All questions answered and regimen reviewed. Patient is to call for any change in status. Hyperlipidemia 03552291 E78.5 reviewed outside lipid studies. All parameters are in appropriat e range. She is to continue her current regimen. [id number] JASON AMADO MD CARDIOLOG Y [place] [address] [place] [address] 04/02/2018 09:28:26 04/02/2018 11:01:03 Coronary arteriosclerosis in [place] artery [id number] 107 I25.10 Medication changes, as well as new medication s were reviewed and discussed in detail including benefit and risk of therapy. The patient is otherwise doing well on current management . No new active problems identified . Chronic problems are all stable. Patient is to continue current regimen without change. All questions answered and regimen reviewed. Patient is to call for any change in status. Hyperlipidemia 38080167 E78.5 reviewed outside lipid studies. All parameters are in appropriat e range. She is to continue her current regimen. [id number] JASON AMADO MD CARDIOLOG Y [address] [place] [address] 10/22/2018 13:48:50 10/22/2018 15:10:00 Coronary arteriosclerosis in [place] artery [id number] 107 I25.10 Medication changes, as well as new medication s were reviewed and discussed in detail including benefit and risk of therapy. The patient is otherwise doing well on current management . No new active problems identified . Chronic problems are all stable. Patient is to continue current regimen without change. All questions answered and regimen reviewed. Patient is to call for any change in status. Hyperlipidemia 35568314 E78.5 Most recent testing reviewed. All laboratory measuremen ts in appropriat e parameters on current medical therapy. This was reviewed and discussed with the patient and all questions answered. [id number] JASON AMADO MD CARDIOLOG Y [address] [place] [address] 02/07/2019 11:09:23 02/07/2019 13:35:19 Coronary arteriosclerosis in [place] artery [id number] 107 I25.10 Medication changes, as well as new medication s were reviewed and discussed in detail including benefit and risk of therapy. The patient is otherwise doing well on current management . No new active problems identified . Chronic problems are all stable. Patient is to continue current regimen without change. All questions answered and regimen reviewed. Patient is to call for any change in status. Hyperlipidemia 03344136 E78.5 Most recent testing reviewed. All laboratory measuremen ts in appropriat e parameters on current medical therapy. This was reviewed and discussed with the patient and all questions answered. [id number] JASON AMADO MD CARDIOLOG Y [address] [place] [address] 05/08/2019 13:19:05 05/08/2019 13:58:46 Coronary arteriosclerosis in [place] artery 1028890633 107 I25.10 Medication changes, as well as new medication s were reviewed and discussed in detail including benefit and risk of therapy. The patient is otherwise doing well on current management . No new active problems identified . Chronic problems are all stable. Patient is to continue current regimen without change. All questions answered and regimen reviewed. Patient is to call for any change in status. Hyperlipidemia 51407887 E78.5 Most recent testing reviewed. All laboratory measuremen ts in appropriat e parameters on current medical therapy. This was reviewed and discussed with the patient and all questions answered. Edema of foot 594759033 R60.0 I discussed the importance of salt restrictio n. Per FDA recommenda tions, I advise limit of 2000 -2400 mg daily of sodium. Increase sodium intake is often associated with worsening of hypertensi on and or heart failure.DA SH diet given.. Advised to increase furosemide to 40 mg a day until edema resolves and then resume previous dosage. [id number] FROILAN BAGLEY MD HEM/ONC [facility] [address] [place] [address] 09/09/2019 08:55:56 09/09/2019 09:56:44 [id number] FROILAN BAGLEY MD HEM/ONC [facility] CLOSED [address] [place] [address] 09/23/2019 14:46:58 09/23/2019 15:53:02 [id number] JASON AMADO MD CARDIOLOG Y [place] [address] [place] [address] ,[address] [place] [address] 10/24/2019 12:38:41 10/24/2019 13:57:59 Coronary arteriosclerosis in [place] artery [id number] 107 I25.10 Medication changes, as well as new medication s were reviewed and discussed in detail including benefit and risk of therapy. The patient is otherwise doing well on current management . No new active problems identified . Chronic problems are all stable. Patient is to continue current regimen without change. All questions answered and regimen reviewed. Patient is to call for any change in status. Hyperlipidemia 12768444 E78.5 Most recent testing reviewed. All laboratory measuremen ts in appropriat e parameters on current medical therapy. This was reviewed and discussed with the patient and all questions answered. Edema of foot 164226056 R60.0 I discussed the importance of salt restrictio n. Per FDA recommenda tions, I advise limit of 2000 -2400 mg daily of sodium. Increase sodium intake is often associated with worsening of hypertensi on and or heart failure.DA SH diet given.. Advised to increase furosemide to 40 mg a day until edema resolves and then resume previous dosage. [id number] FROILAN BAGLEY MD HEM/ONC [facility] [address] [place] [address] 04/20/2020 12:49:16 04/20/2020 13:27:21 [id number] JASON AMADO MD CARDIOLOG Y [address] [place] [phone] 05/04/2020 13:42:38 05/04/2020 14:45:16 Coronary arteriosclerosis in [place] artery 9599824116 107 I25.10 Medication changes, as well as new medication s were reviewed and discussed in detail including benefit and risk of therapy. The patient is otherwise doing well on current management . No new active problems identified . Chronic problems are all stable. Patient is to continue current regimen without change. All questions answered and regimen reviewed. Patient is to call for any change in status. Hyperlipidemia 80464928 E78.5 Most recent testing reviewed. All laboratory measuremen ts in appropriat e parameters on current medical therapy. This was reviewed and discussed with the patient and all questions answered. Edema of foot [id number] R60.0 I discussed the importance of salt restrictio n. Per FDA recommenda tions, I advise limit of 2000 -2400 mg daily of sodium. Increase sodium intake is often associated with worsening of hypertensi on and or heart failure.DA SH diet given.. Advised to increase furosemide to 40 mg a day until edema resolves and then resume previous dosage. [id number] JASON AMADO MD CARDIOLOG Y [address] [place] [phone] 11/23/2020 14:04:41 11/23/2020 15:54:54 Coronary arteriosclerosis in [place] artery [id number] 107 I25.10 Medication changes, as well as new medication s were reviewed and discussed in detail including benefit and risk of therapy. The patient is otherwise doing well on current management . No new active problems identified . Chronic problems are all stable. Patient is to continue current regimen without change. All questions answered and regimen reviewed. Patient is to call for any change in status. Hyperlipidemia 27528596 E78.5 Most recent testing reviewed. All laboratory measuremen ts in appropriat e parameters on current medical therapy. This was reviewed and discussed with the patient and all questions answered. Edema of foot 110519666 R60.0 I discussed the importance of salt restrictio n. Per FDA recommenda tions, I advise limit of 2000 -2400 mg daily of sodium. Increase sodium intake is often associated with worsening of hypertensi on and or heart failure.DA SH diet given.. Advised to increase furosemide to 40 mg a day until edema resolves and then resume previous dosage. COVID-19 140363312 U07.1 I had extensive discussion with patient regarding the importance of vaccinatio n and reviewed findings of COVID 19 infection and answered all questions. [id number] JASON AMADO MD CARDIOLOG Y [address] [place] [address] 04/22/2021 10:16:00 04/22/2021 10:42:04 Coronary arteriosclerosis in [place] artery [id number] 107 I25.10 Medication changes, as well as new medication s were reviewed and discussed in detail including benefit and risk of therapy. The patient is otherwise doing well on current management . No new active problems identified . Chronic problems are all stable. Patient is to continue current regimen without change. All questions answered and regimen reviewed. Patient is to call for any change in status. Review of her symptoms suggest that this was not a cardiac event with negative workup and no further symptoms. No testing needed at this time Hyperlipidemia 51121856 E78.5 Most recent testing reviewed. All laboratory measuremen ts in appropriat e parameters on current medical therapy. This was reviewed and discussed with the patient and all questions answered. Edema of foot 976634954 R60.0 I discussed the importance of salt restrictio n. Per FDA recommenda tions, I advise limit of 2000 -2400 mg daily of sodium. Increase sodium intake is often associated with worsening of hypertensi on and or heart failure.DA SH diet given.. Advised to increase furosemide to 40 mg a day until edema resolves and then resume previous dosage. COVID-19 684357411 U07.1 I had extensive discussion with patient regarding the importance of vaccinatio n and reviewed findings of COVID 19 infection and answered all questions. [id number] YELENA GARCIA PA-C CARDIOLOG Y [address] [place] [address] 10/20/2021 13:30:08 10/20/2021 15:19:47 Coronary arteriosclerosis 29650971 I25.10 Medication changes, as well as new medication s were reviewed and discussed in detail including benefit and risk of therapy. The patient is otherwise doing well on current management . No new active problems identified . Chronic problems are all stable. Patient is to continue current regimen without change. All questions answered and regimen reviewed. Patient is to call for any change in status Dyslipidemia 551788793 E 78.5 Lipid goals discussed with patient. (Total cholestero l less than 170, LDL less than 70. ) Continue heart healthy diet.bertin nue current dose of Lipitor. [id number] YELENA GARCIA PA-C CARDIOLOG [address] [place] [address] 04/25/2022 13:10:58 04/25/2022 14:17:13 Obese 663380420 E66.9 Coronary arteriosclerosis 93403745 I25.10 Medication changes, as well as new medication s were reviewed and discussed in detail including benefit and risk of therapy. The patient is otherwise doing well on current management . No new active problems identified . Chronic problems are all stable. Patient is to continue current regimen without change. All questions answered and regimen reviewed. Patient is to call for any change in status Dyslipidemia 898883490 E 78.5 Lipid goals discussed with patient. (Total cholestero l less than 170, LDL less than 70. ) Continue heart healthy diet.bertin nue current dose of Lipitor. [id number] YELENA GARCIA PA-C CARDIOLOG Y [address] [place] [address] 10/25/2022 13:07:16 10/25/2022 14:19:06 Obese 336163212 E66.9 Coronary arteriosclerosis 22256996 I25.10 The patient is doing well on current management . No new active problems identified . Chronic problems are all stable. Patient is to continue current regimen without change. All questions answered and regimen reviewed. Patient is to call for any change in status Dyslipidemia 250042795 E 78.5 Continue current dose of Lipitor. Obtain fasting lipid profile with PCP [id number] MIGUEL SALAZAR MD CARDIOLOG Y [address] [place] [address] 04/19/2023 08:57:28 04/19/2023 12:59:26 Obesity 396378897 E66.9 patient's BMI today was = 34.1; recommend weight loss for beneficial effects on health. Coronary atherosclerosis 226954234 I25.10 patient with history of CAD, history of CABG-see HPI for detail; no new symptoms reported; exam is relatively unchanged from previous visit; continue with current medication s -enteric-c oated aspirin 81 mg p.o. daily, atenolol 50 mg 1 p.o. nightly, colestipol 1 g tablet p.o. twice daily Anxiety 56659095 F41.9 She reports much increased anxiety/st ress in her life recently due to the deaths of several friends. Hyperlipidemia 66797729 E78.5 continue with current medication s -colestipo l 1 g tablet p.o. twice daily, low cholestero l diet, and recommend fasting lipids at least yearly. Goal lipid profile: TC<=200, TG<=150, HDL>=40, LDL<=70. [id number] MIGUEL SALAZAR MD CARDIOLOG Y [address] [place] [address] 10/23/2023 13:19:59 10/23/2023 15:24:43 Coronary atherosclerosis 161512577 I25.10 patient with history of CAD, history of CABG-see HPI for detail; no new symptoms reported; exam is relatively unchanged from previous visit; continue with current medication s -enteric-c oated aspirin 81 mg p.o. daily, atenolol 50 mg 1 p.o. nightly, colestipol 1 g tablet p.o. twice daily EKG today -sinus bradycardi a, rate= 58, normal axis, QTc= 399 ms, likely old inferior ND, inverted T waves noted in the inferior and anterolate ral leads. Cardiac exam today was benign. No new recommenda tions at this time Essential hypertension 54926914 I10 BP today was = 122/65 mmHg; continue with current med. -Atenolol 50 mg p.o. nightly patient is recommende d to check BPs at home periodical ly & bring BP log to next visit. A low sodium (< 2000 mg/day) diet is also recommende d. [id number] MIGUEL SALAZAR MD CARDIOLOG Y [address] [place] [address] 02/28/2024 14:13:45 02/28/2024 15:43:14 Essential hypertension 21596778 I10 BP today was = 120/68 mmHg; continue with current med. - Atenolol 50 mg p.o. nightly patient is recommende d to check BPs at home periodical ly & bring BP log to next visit. A low sodium (< 2000 mg/day) diet is also recommende d. Obesity 712818559 E66.9 patient's BMI today was = 34.0; recommend weight loss for beneficial effects on health. Coronary atherosclerosis 006244693 I25.10 patient with history of CAD, history of CABG-see HPI for detail; no new symptoms reported; exam is relatively unchanged from previous visit; continue with current medication s -enteric-c oated aspirin 81 mg p.o. daily, atenolol 50 mg 1 p.o. nightly, colestipol 1 g tablet p.o. twice daily. EKG (10/23/23) -sinus bradycardi a, rate= 58, normal axis, QTc= 399 ms, likely old inferior ND, inverted T waves noted in the inferior and anterolate ral leads. Cardiac exam today was benign. No new recommenda tions at this time Palpitations 93390181 R0 0.2 The etiology of the patient's palpitatio ns is not clear based on history and physical exam. Stress (mental and/or physical) may be playing a role in the patient's symptoms. -Recommend ations: 1)Limit use of stimulants , including caffeine, 2)Recent Holter was reviewed with the patient today - NSR, PACs, PVCs, no A. fib. or VT, 3)Continue with Atenolol and PRN Xanax. -Additiona l recommenda tions will be based on these test results and the effect of the palpitatio ns on the patient's quality of life. -Today, we discussed the possible role of AV augusto blocking medication s such as beta blockers. The risks, benefits, and alternativ es to this class of medication were discussed with the patient. If patient's palpitatio n frequency or duration increase between now and the next office visit, then I would consider starting a low beta rafy (e.g. Metoprolol tartrate 12.5 mg po bid) with the goal of reducing palpitatio n burden. [id number] MIGUEL SALAZAR MD CARDIOLOG Y [address] [place] [address] 04/24/2024 13:47:52 05/02/2024 11:17:54 Coronary atherosclerosis 272007351 I25.10 patient with history of CAD, history of CABG-see HPI for detail; no new symptoms reported; exam is relatively unchanged from previous visit; continue with current medication s -enteric-c oated aspirin 81 mg p.o. daily, atenolol 50 mg 1 p.o. nightly, colestipol 1 g tablet p.o. twice daily. 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 Cardiac exam today was benign. No new recommenda tions at this time Essential hypertension 38998075 I10 BP today was = 124/66 mmHg; continue with current med. - Atenolol 50 mg p.o. nightly patient is recommende d to check BPs at home periodical ly & bring BP log to next visit. A low sodium (< 2000 mg/day) diet is also recommende d. Palpitations 81542837 R0 0.2 The etiology of the patient's palpitatio ns is not clear based on history and physical exam. Stress (mental and/or physical) may be playing a role in the patient's symptoms. -Recommend ations: 1)Limit use of stimulants , including caffeine, 2)Most recent Holter was reviewed with the patient at a previous visit - NSR, PACs, PVCs, no A. fib. or VT, 3)Continue with Atenolol and PRN Xanax. -Additiona l recommenda tions will be based on these test results and the effect of the palpitatio ns on the patient's quality of life. -Today, we discussed the possible role of AV augusto blocking medication s such as beta blockers. The risks, benefits, and alternativ es to this class of medication were discussed with the patient. If patient's palpitatio n frequency or duration increase between now and the next office visit, then I would consider starting a low beta rafy (e.g. Metoprolol tartrate 12.5 mg po bid) with the goal of reducing palpitatio n burden. Obesity 664698677 E66.9 patient's BMI today was = 34.4; recommend weight loss for beneficial effects on health. [id number] MIGUEL SALAZAR MD CARDIOLOG Y [address] [place] [address] 10/29/2024 12:55:01 10/29/2024 14:32:18 Coronary atherosclerosis 148692904 I25.10 patient with history of CAD, history of CABG-see HPI for detail; no new symptoms reported; exam is relatively unchanged from previous visit; continue with current medication s -enteric-c oated aspirin 81 mg p.o. daily, atenolol 50 mg 1 p.o. nightly, colestipol 1 g tablet p.o. twice daily. 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 Cardiac exam today was benign. No new recommenda tions at this time Essential hypertension 23090213 I10 BP today was = 140/70 mmHg, HR=65 bpm; continue with current med. - Atenolol 50 mg p.o. nightly patient is recommende d to check BPs at home periodical ly & bring BP log to next visit. A low sodium (< 2000 mg/day) diet is also recommende d. Palpitations 69016257 R0 0.2 The etiology of the patient's palpitatio ns is not clear based on history and physical exam. Stress (mental and/or physical) may be playing a role in the patient's symptoms. -Recommend ations: 1)Limit use of stimulants , including caffeine, 2)Most recent Holter (02/06/24) was reviewed with the patient at a previous visit - NSR, PACs, PVCs, no A. fib. or VT, 3)Continue with Atenolol and PRN Xanax. -Additiona l recommenda tions will be based on these test results and the effect of the palpitatio ns on the patient's quality of life. -Today, we discussed the possible role of AV augusto blocking medication s such as beta blockers. The risks, benefits, and alternativ es to this class of medication were discussed with the patient. If patient's palpitatio n frequency or duration increase between now and the next office visit, then I would consider starting a low beta rafy (e.g. Metoprolol tartrate 12.5 mg po bid) with the goal of reducing palpitatio n burden. Obesity 723952080 E66.9 patient's BMI today was = 34.4; recommend weight loss for beneficial effects on health. Gastroesop hageal reflux disease 718788320 K21.9 Patient reports that her chest discomfort has gone away with use of new medication vs. GERD. In retrospect , she thinks many of her chest pain episodes have been due to GERD. Health Concerns Section Related Observation LastModified by Organization Detai ls LastModified Time None Recorded Concern Status LastModified by Organization Details LastModified Time None Recorded Advance Directives Directive None Recorded Payers Insurance Date Sequence Insurance Name Policy Number Policy Gaines Covered Member ID Gaines Member ID Guarantor Name 04/25/2025 2 [place] [id number] Gina Haas [id number] Gina Haas 04/25/2025 1 [place] Gina Haas [id number] Gina Haas 10/07/2020 2 [id number] Gina Samina Hector [id number] Gina Hector Notes Date Note Type Note Provider Name and Address Organization Details Recorded Time 04/19/2023 text/html Ms. Hector is a very pleasant, 77 y.o. patient with a h/o CAD, h/o CABG, hypertension, rheumatoid arthritis, GERD, osteoporosis who was last seen in the hospital in late February 2023. At that time, she underwent Lexiscan nuclear stress testing to evaluate chest discomfort. This revealed normal left ventricular ejection fraction of 59%, elevated 3 times daily ratio 1.47, normal LV volumes, and a moderate anterior apical reversible defect suggestive of ischemia . Subsequently, she underwent coronary angiography as well as bypass graft angiography. This was carried out by me on March 10 and revealed ostial RCA 100% occlusion, multiple 80-90% stenoses in the proximal LAD with 100% mid occlusion, patent left main, and luminal regularities in the left circumflex. Bypass is or imaging revealed LOPEZ-LAD that was patent, SVG-distal RCA that was patent, SVG-OM that had diffuse stenosis in the ostial to proximal portion of that vessel as well as some spasm. Also during that hospitalization, she underwent echocardiogram, and this revealed a normal left ventricular ejection fraction, mild MR, mild TR, estimated PA systolic pressure of 35 mmHg. Since that visit, the patient denies chest pain, SOA, THOMPSON, PND, orthopnea, LE edema, palpitations, near syncope, and syncope. She reports that several of her friends have recently . This high level of emotional stress and anxiety has contributed to a jittery feeling internally and some burning type mid chest discomfort that she attributes to reflux and anxiety. Recent overall health is reported as stable. MIGUEL SALAZAR MD [address] [place] [address], [id number], [facility] 04/19/2023 12:47:20 10/23/2023 text/html Ms. Hector is a very pleasant, 78 y.o. patient with a h/o CAD, h/o CABG, hypertension, rheumatoid arthritis, GERD, osteoporosis who was last seen in the office on 04/19/2023. To review:At that time, she underwent Lexiscan nuclear stress testing to evaluate chest discomfort. This revealed normal left ventricular ejection fraction of 59%, elevated 3 times daily ratio 1.47, normal LV volumes, and a moderate anterior apical reversible defect suggestive of ischemia . Subsequently, she underwent coronary angiography as well as bypass graft angiography. This was carried out by ar on March 10 and revealed ostial RCA 100% occlusion, multiple 80-90% stenoses in the proximal LAD with 100% mid occlusion, patent left main, and luminal regularities in the left circumflex. Bypass imaging revealed LOPEZ-LAD that was patent, SVG-distal RCA that was patent, SVG-OM that had diffuse stenosis in the ostial to proximal portion of that vessel as well as some spasm. Also during that hospitalization, she underwent echocardiogram, and this revealed a normal left ventricular ejection fraction, mild MR, mild TR, estimated PA systolic pressure of 35 mmHg.At last visit, the patient denied chest pain, SOA, THOMPSON, PND, orthopnea, LE edema, palpitations, near syncope, and syncope. She reported that several of her friends have recently . This high level of emotional stress and anxiety has contributed to a jittery feeling internally and some burning type mid chest discomfort that she attributed to reflux and anxiety. Recent overall health is reported as stable. Patient reports no new cardiovascular symptoms since last office visit. Patient returns to the clinic today for a scheduled follow-up visit. MIGUEL SALAZAR MD [address] [place] [address], [id number], [facility] 10/23/2023 14:47:35 02/28/2024 text/html Ms. Hector is a very pleasant, 78 y.o. patient with a h/o CAD, h/o CABG, hypertension, rheumatoid arthritis, GERD, osteoporosis who was last seen in the office on 10/23/2023. To review:At that time, she underwent Lexiscan nuclear stress testing to evaluate chest discomfort. This revealed normal left ventricular ejection fraction of 59%, elevated 3 times daily ratio 1.47, normal LV volumes, and a moderate anterior apical reversible defect suggestive of ischemia . Subsequently, she underwent coronary angiography as well as bypass graft angiography. This was carried out by ar on March 10, 2023, and revealed ostial RCA 100% occlusion, multiple 80-90% stenoses in the proximal LAD with 100% mid occlusion, patent left main, and luminal regularities in the left circumflex. Bypass imaging revealed LOPEZ-LAD that was patent, SVG-distal RCA that was patent, SVG-OM that had diffuse stenosis in the ostial to proximal portion of that vessel as well as some spasm. Also during that hospitalization, she underwent echocardiogram, and this revealed a normal left ventricular ejection fraction, mild MR, mild TR, estimated PA systolic pressure of 35 mmHg. At previous office visits, the patient denied chest pain, SOA, THOMPSON, PND, orthopnea, LE edema, palpitations, near syncope, and syncope. She reported that several of her friends have recently . This high level of emotional stress and anxiety has contributed to a jittery feeling internally and some burning type mid chest discomfort that she attributed to reflux and anxiety. Recent overall health is reported as stable. Since the October 2023 office visit, patient has been evaluated in the ER at [facility] on 01/15/2024 for chest pain. She was ruled out for ACS, and sent home. Since then, she reports occasional SOA/THOMPSON and chest discomfort as well as palpitations. She went to the ER twice more last month, and wonders if her recent symptoms were related to anxiety. Patient returns to the clinic today for a scheduled follow-up visit. MIGUEL SALAZAR MD [address] [place] [address], [phone], [facility] 02/28/2024 18:50:28 04/24/2024 text/html Ms. Hector is a very pleasant, 78 y.o. patient with a h/o CAD, h/o CABG, hypertension, rheumatoid arthritis, GERD, osteoporosis who was last seen in the office on 02/28/2024. To review:At that time, she underwent Lexiscan nuclear stress testing to evaluate chest discomfort. This revealed normal left ventricular ejection fraction of 59%, elevated 3 times daily ratio 1.47, normal LV volumes, and a moderate anterior apical reversible defect suggestive of ischemia . Subsequently, she underwent coronary angiography as well as bypass graft angiography. This was carried out by me on March 10, 2023, and revealed ostial RCA 100% occlusion, multiple 80-90% stenoses in the proximal LAD with 100% mid occlusion, patent left main, and luminal regularities in the left circumflex. Bypass imaging revealed LOPEZ-LAD that was patent, SVG-distal RCA that was patent, SVG-OM that had diffuse stenosis in the ostial to proximal portion of that vessel as well as some spasm. Also during that hospitalization, she underwent echocardiogram, and this revealed a normal left ventricular ejection fraction, mild MR, mild TR, estimated PA systolic pressure of 35 mmHg. At previous office visits, the patient denied chest pain, SOA, THOMPSON, PND, orthopnea, LE edema, palpitations, near syncope, and syncope. She reported that several of her friends have recently . This high level of emotional stress and anxiety has contributed to a jittery feeling internally and some burning type mid chest discomfort that she attributed to reflux and anxiety. Recent overall health is reported as stable.Since the October 2023 office visit, patient has been evaluated in the ER at [facility] on 01/15/2024 for chest pain. She was ruled out for ACS, and sent home. Since then, she reports occasional SOA/THOMPSON and chest discomfort as well as palpitations. She went to the ER twice more last month, and wonders if her recent symptoms were related to anxiety. Her last office visit with me was 02/28/2024. Patient returns to the clinic today for a scheduled follow-up visit. MIGUEL SALAZAR MD [address] [place] [address], [phone], [facility] 04/26/2024 11:11:23 10/29/2024 text/html Ms. Hector is a very pleasant, 79 y.o. patient with a h/o CAD, h/o CABG, hypertension, rheumatoid arthritis, GERD, osteoporosis who was last seen in the office on 04/24/2024. To review:At that time, she underwent Lexiscan nuclear stress testing to evaluate chest discomfort. This revealed normal left ventricular ejection fraction of 59%, elevated 3 times daily ratio 1.47, normal LV volumes, and a moderate anterior apical reversible defect suggestive of ischemia . Subsequently, she underwent coronary angiography as well as bypass graft angiography. This was carried out by ar on March 10, 2023, and revealed ostial RCA 100% occlusion, multiple 80-90% stenoses in the proximal LAD with 100% mid occlusion, patent left main, and luminal regularities in the left circumflex. Bypass imaging revealed LOPEZ-LAD that was patent, SVG-distal RCA that was patent, SVG-OM that had diffuse stenosis in the ostial to proximal portion of that vessel as well as some spasm. Also during that hospitalization, she underwent echocardiogram, and this revealed a normal left ventricular ejection fraction, mild MR, mild TR, estimated PA systolic pressure of 35 mmHg. At previous office visits, the patient denied chest pain, SOA, THOMPSON, PND, orthopnea, LE edema, palpitations, near syncope, and syncope. She reported that several of her friends have recently . This high level of emotional stress and anxiety has contributed to a jittery feeling internally and some burning type mid chest discomfort that she attributed to reflux and anxiety. Recent overall health is reported as stable. Since the October 2023 office visit, patient has been evaluated in the ER at [facility] on 01/15/2024 for chest pain. She was ruled out for ACS, and sent home. Since then, she reports occasional SOA/THOMPSON and chest discomfort as well as palpitations. She went to the ER twice more after that, and wonders if her recent symptoms were related to anxiety. Her last office visits with me were on 02/28/2024 and 04/24/24. She went to the ER on 05/26/24 with shoulder pain & loud heart beats. Patient returns to the clinic today for a scheduled follow-up visit. MIGUEL SALAZAR MD [address] [place] [address], [place], [phone], [facility] 10/29/2024 19:38:08 OBGyn Episode No OBEpisode recorded.
--- OUTSIDE RECORDS SUMMARY | 2025-05-04 12:51 | XMS_ITS | Referral Summary ---
Author Organization [employer] [facility] [employer] Address [address] [place] [address] Care Team Providers Care Compensation Coordinator Name Role Phone José Miguel Verde MD Primary Care Provider + [phone] Allergies Active Allergy Reactions Criticality Noted Date Comments Ibuprofen Rash Low 03/07/2023 Penicillin Rash Low 03/07/2023 Sulfamethoxazole 03/28/2022 Trimethoprim 03/28/2022 Medications ALPRAZolam (XANAX) 0.25 MG tablet Take 1 tablet (0.25 mg total) by mouth 3 (three) times daily as needed for Anxiety. Active aspirin 81 MG EC tablet Take 1 tablet (81 mg total) by mouth in the morning. Active atenoloL (TENORMIN) 50 MG tablet Take 1 tablet (50 mg total) by mouth in the morning. Active pancrelipase, Muo-Cvjq-Cvps, (CREON) 36,000-114,000 - 180,000 unit CpDR capsule Take 1 capsule (36,000 units of lipase total) by mouth in the morning and 1 capsule (36,000 units of lipase total) at noon and 1 capsule (36,000 units of lipase total) in the evening. Take with meals. Active oxybutynin (DITROPAN-XL) 10 MG 24 hr tablet Take 1 tablet (10 mg total) by mouth in the morning. Active famotidine (PEPCID) 20 MG tablet Take 1 tablet (20 mg total) by mouth in the morning. Active polycarbophil (FIBERCON) 625 mg tablet Take 1 tablet (625 mg total) by mouth in the morning. Active atorvastatin (LIPITOR) 10 MG tablet Take 1 tablet (10 mg total) by mouth nightly. Active nitroglycerin (NITROSTAT) 0.[address] 1 tablet (0.4 mg total) under the tongue every 5 (five) minutes as needed for Chest pain. Active hydrOXYchloroQ UINE (PLAQUENIL) 200 mg tablet Take 1 tablet (200 mg total) by mouth in the morning. Active cycloSPORINE (RESTASIS) 0.05 % ophthalmic emulsion Place 1 drop into both eyes in the morning and 1 drop before bedtime. Active colestipoL (Colestid) 1 gram tablet Take 1 tablet (1 g total) by mouth in the morning. Active cyanocobalamin (VITAMIN B-12) 1,000 mcg/mL injection Inject 1 mL (1,000 mcg total) intramuscularly every 30 (thirty) days. Active cevimeline (EVOXAC) 30 mg capsule cevimeline 30 mg capsule Take 1 capsule 3 times a day by oral route. Active Active Problems Problem Noted Date Diagnosed Date Chest pain due to CAD 03/09/2023 Cardiomegaly 03/07/2023 Chest pain 03/07/2023 Social History Tobacco Use Types Packs/Day Years Used Date Smoking Tobacco: Never Smokeless Tobacco: Never Alcohol Use Standard Drinks/Week Comments Never 0 (1 standard drink = 0.6 oz pur e alcohol) PRAPARE - Transportation Answer Date Re corded In the past 12 months, has l ack of transportation kept you from medical appointments or from getting medications? No 03/07/2023 Lack of Transportation (Non-Medical) Not on file 03/07/2023 Housing Stability Vital Sign Answer Fahran e Recorded In the last 12 months, was t here a time when you were not able to pay the mortgage or rent on time? No 03/07/2023 In the last 12 months, how many places have you lived? 1 03/07/2023 In the last 12 months, was t here a time when you did not have a steady place to sleep or slept in a care home (including now)? No 03/07/2023 Interpersonal Safety Answer Date Record ed Family or friends hurt you Not on file 12/01 Family or friends insult you Not on file Family or friends threaten you Not on file 0 12/01/2023 Family or friends scream or curse at you Not on file 12/01/2023 Housing Stability Answer Date Recorded Living situation today Not on file Living situation problems Not on file 2023 Food Insecurity Answer Date Recorded Food run out past 12 months Not on file 11/13 Food did not last past 12 months Not on file 12/01/2023 Employment Answer Date Recorded Help finding and keeping a job Not on file 0 12/01/2023 Family and Community Support Answer Farhan e Recorded Help with Day to Day Activities Not on file 12/01/2023 Feeling Lonely or Isolated Not on file 12/01 Educational Attainment Answer Date Hamilton rded Speak language other than Slovak at home Not on file 12/01/2023 Want help with school or training Not on file 12/01/2023 Depression Answer Date Recorded PHQ-2 Risk Not on file 12/01/2023 Disabilities Answer Date Recorded Difficulty concentrating Not on file 024 Difficulty doing errands alone Not on file 0 12/01/2023 Substance Use Answer Date Recorded Used prescription meds for non-medical reasons N ot on file 12/01/2023 Used illegal drugs past 12 months Not on file 12/01/2023 Comments Unknown Sex and Gender Information Value Date Recorded Sex Assigned at Female 05/10/2022 1:38 PM CDT Legal Sex Female 1:38 PM CDT Gender Identity Female 05/10/2022 1:38 PM CDT Sexual Orientation Not on file Last Filed Vital Signs Vital Sign Reading Time Taken Comments Blood Pressure 147/69 05/28/2024 2:55 PM EDT Pulse 58 05/28/2024 2:55 PM EDT Temperature 36.7 C (98 F) 05/28/2024 9:48 AM EDT Respiratory Rate 20 05/28/2024 1:40 PM EDT Oxygen Saturation 99% 05/28/2024 2:55 PM EDT Inhaled Oxygen Concentration - - Weight 90.7 kg (200 lb) 05/28/2024 9:48 AM EDT Height 152.4 cm (5') 05/28/2024 9:48 AM EDT Body Mass Index 39.06 05/28/2024 9:48 AM EDT Functional Status * Are you deaf or do you have serious difficulty hearing? Answer Date of Assessment Author No 03/11/2023 10:21 AM Tere Zhao RN * Are you blind or do you have serious difficulty seeing, even when wearing glasses? Answer Date of Assessment Author No 03/11/2023 10:21 AM Tere Zhao RN * Do you have serious difficulty walking or climbing stairs? Answer Date of Assessment Author Yes 03/11/2023 10:21 AM Tere Zhao RN * Do you have serious difficulty dressing or bathing? Answer Date of Assessment Author No 03/11/2023 10:21 AM Tere Zhao RN * Because of a physical, mental, or emotional condition, do you have serious difficulty doing errandsalone such as visiting the doctor? Answer Date of Assessment Author No 03/11/2023 10:21 AM Tere Zhao RN Mental Status * Because of a physical, mental, or emotional condition, do you have serious difficulty concentrating, remembering, or making decisions? (5 years old or older) Answer Entry Date Author No 03/11/2023 10:21 AM Tere Zhao RN Plan of Treatment Not on file Insurance MEDICARE PART A B [facility] Advance Directives For more information, please contact: [phone] * Full Code (Latest Code Status on File) Date Activated Date Inactivated Comments 03/10/2023 5:00 PM 03/11/2023 12:05 PM * Full Code Date Activated Date Inactivated Comments 03/07/2023 2:51 PM 03/10/2023 5:00 PM Care Teams Compensation Coordinator Relationship Specialty Start Date End Date José Miguel Verde MD [address] [place] [id number] PCP - General Adolescent Medicine 03/07/23
--- OUTSIDE RECORDS SUMMARY | 2025-05-04 12:51 | XMS_ITS | Encounter Summary ---
Author Organization [facility] Address [address] [place] [address] Care Team Providers Care Shoe Cobbler Name Role Phone José Miguel Verde MD Primary Care Provider + [phone] Encounter Details Date Type Department Care Team (Late st Contact Info) Description 07/15/2020 Transcribed Document [facility] [address] [place] [address] ProviderNitin MD [address] [place] [address] Social History Tobacco Use Types Packs/Day Years Used Date Smoking Tobacco: Never Assessed Comments Unknown Sex and Gender Information Value Date Recorded Sex Assigned at Female 05/10/2022 1:38 PM CDT Legal Sex Female 1:38 PM CDT Gender Identity Female 05/10/2022 1:38 PM CDT Sexual Orientation Not on file documented as of this encounter Miscellaneous Notes * Cerner Conversion Note - Nitin ProviderMD - 07/15/2020 11:47 AM CDT [place] Suicide Severity Rating Scale (C-SSRS) Entered On: 07/15/2020 12:21 EDT Performed On: 07/15/2020 12:20 EDT by IVORY APPIAH RN [place] Suicide Severity Rating Scale (C-SSRS) CSSRS Past Month Wish to be : No CSSRS Past Month Suicidal Thoughts : No CSSRS Lifetime Suicide Behavior : No Suicide Severity Rating Score : 0 Suicide Severity Rating : No Additional Care Required at this time IVORY APPIAH RN - 07/15/2020 12:20 EDT documented in this encounter Plan of Treatment Not on file documented as of this encounter Visit Diagnoses Not on filedocumented in this encounter Care Teams Shoe Cobbler Relationship Specialty Start Date End Date José Miguel Verde MD [address] [place] [id number] PCP - General Adolescent Medicine 03/07/23 documented as of this encounter
--- OUTSIDE RECORDS SUMMARY | 2025-05-04 12:51 | XMS_ITS | Encounter Summary ---
Author Organization [facility] [employer] [facility] [employer] Address [address] [place] [address] Care Team Providers Care Rigger Third Name Role Phone José Miguel Verde MD Primary Care Provider + [phone] Encounter Details Date Type Department Care Team (Late st Contact Info) Description 01/09/2019 Transcribed Document [facility] [address] [place] [address] ProviderNitin MD [address], [place] [id number] Social History Tobacco Use Types Packs/Day Years Used Date Smoking Tobacco: Never Assessed Comments Unknown Sex and Gender Information Value Date Recorded Sex Assigned at Female 05/10/2022 1:38 PM CDT Legal Sex Female 1:38 PM CDT Gender Identity Female 05/10/2022 1:38 PM CDT Sexual Orientation Not on file documented as of this encounter Miscellaneous Notes * Cerner Conversion Note - Historical ProviderMD - 01/09/2019 8:32 AM [place] MACHINE OPERATOR CR Chest 1 Vw Portable Ordered: 01/08/2019 Modified Reason for Exam: chest pain 01/09/2019 07:59 01/09/2019 08:32 (ЕЛЕНА LINDSEY) No further action required documented in this encounter Plan of Treatment Not on file documented as of this encounter Visit Diagnoses Not on filedocumented in this encounter Care Teams Rigger Third Relationship Specialty Start Date End Date José Miguel Verde MD [address] [place] [id number] PCP - General Adolescent Medicine 03/07/23 documented as of this encounter
--- OUTSIDE RECORDS SUMMARY | 2025-05-04 12:51 | XMS_ITS | Encounter Summary ---
Author Organization [employer] Address [address] [place] [address] Care Team Providers Care Fence Post Driver Name Role Phone José Miguel Verde MD Primary Care Provider + [phone] Encounter Details Date Type Department Care Team (Late st Contact Info) Description 07/15/2020 Transcribed Document [facility] [place] [facility] [address] [place] [address] ProviderNitin MD [address], [place] [id number] Social History Tobacco Use Types Packs/Day Years Used Date Smoking Tobacco: Never Assessed Comments Unknown Sex and Gender Information Value Date Recorded Sex Assigned at Female 05/10/2022 1:38 PM CDT Legal Sex Female 1:38 PM CDT Gender Identity Female 05/10/2022 1:38 PM CDT Sexual Orientation Not on file documented as of this encounter Miscellaneous Notes * Cerner Conversion Note - Historical ProviderMD - 07/15/2020 4:07 PM CDT Patient: GINA HECTOR Age: 74 years Sex: Female : 1945 Associated Diagnoses: Chest wall pain Author: CARMENCITA KHAN PA-C Basic Information Additional information: Chief Complaint from Nursing Triage Note : Chief Complaint 07/15/2020 11:56 EDT Chief Complaint pt c/o CP for 2 days, hurting in left arm, sharp 10, took NTG yesterday went away, started today took NTH with xanax and now a /, no NVD, . History of Present Illness The patient presents with She is 74-year-old female with a history of hypertension rheumatoid arthritis CAD, she presents emergency department with complaint of left-sided chest pain that goes into her left shoulder and arm, she says that she noticed it last sign when she laid down to bed and thought perhaps she was laying on it funny, she said this morning that it was still bothering her, she says that it is a dull ache nothing significant, she says that her shoulder is sore but her chest is not. Patient says that the pain is gone away and that she currently has no pain. She just says that she thought she should get it checked out because Dr. Bryan tells her to come to the ER if she has chest pain however she says she usually just takes Tums and the symptoms it is her acid reflux. Patient denies any fever chills headache dizziness blurred vision cough congestion shortness of breath abdominal pain nausea vomiting diarrhea dysuria hematuria numbness tingling decreased range of motion lotion or edema rash.. Review of Systems Additional review of systems information: All other systems reviewed and otherwise negative. Health Status Allergies: Allergic Reactions (Selected) Severity Not Documented Ibuprofen- Itching and itching. Levofloxacin- O/e - a rash and o/e - a rash. Penicillin- O/e - a rash and o/e - a rash.. Medications: (Selected) . Immunizations: Per nurse's notes. Past Medical/ Family/ Social History Medical history Reviewed as documented in chart. Surgical history: No active procedure history items have been selected or recorded., Reviewed as documented in chart. Family history: No family history items have been selected or recorded., Reviewed as documented in chart. Social history: Social & Psychosocial Habits No Data Available . Problem list: No qualifying data available , per nurse's notes. Physical Examination Vital Signs Vital Signs/Vital Measures 07/15/2020 13:00 EDT Systolic Blood Pressure 117 mmHg Diastolic Blood Pressure 67 mmHg Mean Arterial Pressure (MAP)-BMDI 88 Heart Rate Monitored 56 bpm LOW Respiratory Rate 18 Breaths/Min Oxygen Saturation 98 % Oxygen Therapy Mode Room air 07/15/2020 11:56 EDT Systolic Blood Pressure 142 mmHg HI Diastolic Blood Pressure 102 mmHg HI Temperature Source Oral Temperature Mode Fahrenheit Temperature, Fahrenheit 98.2 Deg F Clinical Temperature, C 36.8 Deg C Peripheral Pulse Rate 67 bpm Respiratory Rate 18 Breaths/Min Oxygen Saturation 95 % Oxygen Therapy Mode Room air . Measurements 07/15/2020 11:56 EDT Height Source Stated Height Entry Format [place] Height/Length, SRI LANKAN (ft) 5 ft Height/Length SRI LANKAN 2 Inch CLINICALHEIGHT 157.48 cm [place] Body Weight 49.73 kg Weight Source, ED Critical estimated dosing weight Weight Entry Format [place] Weight [place] Citizen lb 222 lb CLINICALWEIGHT 100.91 kg Body Surface Area (BSA) 2 m2 Body Mass Index 40.7 kg/m2 >HHI . Oxygen Saturation 07/15/2020 13:00 EDT Oxygen Saturation 98 % 07/15/2020 11:56 EDT Oxygen Saturation 95 % . General: Alert, no acute distress. Skin: Warm, dry. Head: Normocephalic, atraumatic. Neck: Supple, trachea midline. Eye: Extraocular movements are intact, normal conjunctiva. Ears, nose, mouth and throat: Oral mucosa moist. Cardiovascular: Regular rate and rhythm, Normal peripheral perfusion, Bilateral lower extremity edema nonpitting. Respiratory: Lungs are clear to auscultation, respirations are non-labored. Gastrointestinal: Soft, Nontender, Non distended, Normal bowel sounds. Back: Nontender. Musculoskeletal: Normal ROM, normal strength. Neurological: Alert and oriented to person, place, time, and situation, No focal neurological deficit observed. Lymphatics: No lymphadenopathy. Psychiatric: Cooperative, appropriate mood & affect. Medical Decision Making Differential Diagnosis: Unstable angina, angina, anxiety, atypical chest pain, pneumonia, gastroesophageal reflux disease, costochondritis, chest wall pain. Documents reviewed: Emergency department nurses' notes. 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 groundwater monitoring technician: Initial EKG shows normal sinus rhythm with incomplete right bundle branch block rate of 60 bpm reviewed by TORIBIO Peterson Repeat EKG shows sinus bradycardia with incomplete right bundle branch block at a rate of 56 bpm reviewed by TORIBIO Peterson. Results review: Lab results : Lab Results 07/15/2020 15:04 EDT Troponin I Ultra <0.015 ng/mL 07/15/2020 12:00 EDT Sodium Level 139 mmol/L Potassium Level 4.1 mmol/L Chloride Level 108 mmol/L Carbon Dioxide Level 26 mmol/L Anion Gap 9 Glucose Level 111 mg/dL HI Blood Urea Nitrogen 23 mg/dL HI Creatinine Level 1.30 mg/dL HI eGFR 49 mL/min/1.73m2 LOW eGFR NonAfrican 40 mL/min/1.73m2 LOW Bun/Creatinine 17.7 Calcium Level 9.2 mg/dL Protein Total 7.6 Gram/dL Albumin Level 4.3 Gram/dL Globulin 3.3 Gram/dL A/G Ratio 1.3 Bilirubin Total 1.1 mg/dL Alk Phos 66 Units/Liter AST 44 Units/Liter HI ALT 36 Units/Liter Troponin I Ultra <0.015 ng/mL WBC 5.9 K/uL RBC 4.46 Million/uL Hgb 14.7 g/dL Hct 43.4 % MCV 97.3 fL HI MCH 33.0 pg HI MCHC 33.9 Gram/dL Platelet Count 139 K/uL LOW MPV 11.2 fL RDW 12.9 % Neut % 72.5 % HI Neut # 4.29 K/uL Lymph % 16.4 % LOW Lymph # 0.97 x10(3)/uL LOW [place] % 9.3 % HI [place] # 0.55 K/uL Eos % 1.0 % Eos # 0.06 x10(3)/uL Baso % 0.5 % Baso # 0.03 x10(3)/uL Slide Review No IG# 0.02 x10(3)/uL IG% 0.30 % . Radiology results: Radiology Results (Last 48 hours) [id number] -- 07/15/2020 11:47 CR Chest 1 Vw Portable (07/15/2020 12:05) Result: PORTABLE CHEST 07/15/2020 11:00 AMHISTORY: Precordial chest painCOMPARISON: December 2018FINDINGS: The patient is status post sternotomy for CABG. The cardiacsilhouette is normal in size. The mediastinal and hilar contours areunremarkable. The lungs are clear. There is no pneumothorax. Thevisualized osseous structures demonstrate no acute abnormalities.IMPRESSION: No acute cardiopulmonary process. Images reviewed, interpreted, and dictated by Dr. Sunny Cifuentes.Transcribed by Maryam Bellamy (R).I have personally viewed, interpreted and dictated the examination. Molly read and agree with the above final transcribed report. . Reexamination/ Reevaluation Time: 07/15/2020 16:16:00 . Notes: Patient is been chest pain-free while in the emergency department, she says that she isn't feeling well with no complaints eager for discharge.. Impression and Plan Diagnosis Chest wall pain - Discharge, Medical Plan Condition: Stable. Disposition: Discharged Admit/Transfer/Discharge: Discharge (Order): Start: 07/15/2020 16:08 EDT, Discharge to: Home. Patient was given the following educational materials: Chest Wall Pain, Nonspecific Chest Pain, Adult. Follow up with: Follow up with primary care provider Within 1 to 2 days Take home medications as directed, follow with PCP, return to emergency Department with new or worsening symptoms; MELVIN RASCON Within 2 to 3 days; JASON WEISS Within 2 to 3 days Cardiology Call for follow up appointment. Counseled: Patient, Friend, Regarding diagnosis, Regarding diagnostic results, Regarding treatment plan, Patient indicated understanding of instructions. documented in this encounter Plan of Treatment Not on file documented as of this encounter Visit Diagnoses Not on filedocumented in this encounter Care Teams Fence Post Driver Relationship Specialty Start Date End Date José Miguel Verde MD [address] [place] [id number] PCP - General Adolescent Medicine 03/07/23 documented as of this encounter
--- OUTSIDE RECORDS SUMMARY | 2025-05-04 12:51 | XMS_ITS | Encounter Summary ---
Author Organization [facility] In iatives Address [address] [place] [address] Care Team Providers Care Air Conditioning Coil Assembler Name Role Phone José Miguel Verde MD Primary Care Provider + [phone] Encounter Details Date Type Department Care Team (Late st Contact Info) Description 07/15/2020 Transcribed Document [facility] Family Medicine [address] [place] [address] ProviderNitin MD [address], [place] [id number] Social History Tobacco Use Types Packs/Day Years [...] Conversion Note - Nitin ProviderMD - 07/15/2020 4:16 PM CDT [facility] [place] [id number] GINA HECTOR :1945 Visit Time:07/15/2020 Your Visit Summary Your Care Team Primary Provider: CARMENCITA KHAN PA-C Secondary Provider: Your Diagnosis Chest pain Chest wall pain Medical Information You may obtain a copy of your Emergency Department visit from Medical Records by calling the hospital phone number listed above and asking to be directed to the Medical Records Department. If you had special tests, such as EKG???s or X-rays, the interpretation of your tests given to you by the Emergency Department Physician is a preliminary report. Some fractures and illnesses fail to show up on preliminary tests. These will be reviewed again and we will call you if there are any new suggestions. If your symptoms continue notify your physician. After you leave, you should follow the instructions provided. What to do next Follow-Up Appointments Follow Up with Follow up with primary care provider When Within 1 to 2 days Comments Take home medications as directed, follow with PCP, return to emergency Department with new or worsening symptoms Follow Up with MELVIN RASCON When Within 2 to 3 days Where: [address] [place] [address] [facility] (1) Allergies ibuprofen (Itching, Itching) levofloxacin (O/E - a rash, O/E - a rash) penicillin (O/E - a rash, O/E - a rash) Immunizations This Visit No Immunizations Found Medications The home medications listed are only as accurate as the information you provided. Please continue taking all of your medications prescribed by your Primary Care Provider unless specifically told to change or discontinue the medication. Please direct any questions regarding your home medications to your Primary Care Provider. Take your medications faithfully. Do NOT skip medication. Do NOT stop taking medications without the direction of a physician. Carry a list of your medications with you at all times, and take this medication list with you to your first follow up visit. Report any side effects. Avoid herbal remedies unless discussed with your physician. As part of your treatment plan, your physician may have prescribed a limited course of a controlled substance. This medication may be given to help people with moderate or severe pain or for other medical conditions, but there are risks involved with treatment. Common side effects may include nausea, constipation, drowsiness, sweating, itching, dry mouth, and rash. More serious side effects may include cognitive and motor impairment, like problems with thinking, concentrating, alertness, and movement (e.g. slowed reflexes), and driving and operating heavy machinery can be dangerous. It is important for you to talk to your physician if you have these side effects or questions. These controlled substances can produce physical dependence and be habit-forming if taken for an extended period of time, which means that the body has gotten used to them and may experience withdrawal symptoms if they are abruptly stopped. Withdrawal symptoms can include runny nose, sweating, goose bumps, diarrhea, abdominal cramping, rapid heartbeat, difficulty sleeping, and nervousness. Please dispose of unused and medications per pharmacy guidance. Test Results Laboratory or Other Results This Visit (last charted value for your 07/15/2020 visit) Hematology 07/15/2020 12:00 PM WBC: 5.9 K/uL -- Normal range between ( 4.5 and 10.5 ) RBC: 4.46 Million/uL -- Normal range between ( 3.93 and 5.22 ) Hct: 43.4 % -- Normal range between ( 34.1 and 44.9 ) Hgb: 14.7 g/dL -- Normal range between ( 11.2 and 15.7 ) Platelet Count: 139 K/uL -- Normal range between ( 163 and 369 ) MCH: 33.0 pg -- Normal range between ( 25.6 and 32.2 ) MCHC: 33.9 Gram/dL -- Normal range between ( 32.2 and 36.5 ) MCV: 97.3 fL -- Normal range between ( 79.0 and 94.8 ) Slide Review: No Eos %: 1.0 % -- Normal range between ( 0.0 and 7.0 ) [place] #: 0.55 K/uL -- Normal range between ( 0.16 and 1.00 ) Eos #: 0.06 x10(3)/uL -- Normal range between ( 0.00 and 0.80 ) [place] %: 9.3 % -- Normal range between ( 3.0 and 9.0 ) Baso %: 0.5 % -- Normal range between ( 0.0 and 1.5 ) Baso #: 0.03 x10(3)/uL -- Normal range between ( 0.00 and 0.20 ) RDW: 12.9 % -- Normal range between ( 11.7 and 14.9 ) Neut %: 72.5 % -- Normal range between ( 34.0 and 71.0 ) Neut #: 4.29 K/uL -- Normal range between ( 1.56 and 6.13 ) Lymph %: 16.4 % -- Normal range between ( 19.3 and 53.1 ) Lymph #: 0.97 x10(3)/uL -- Normal range between ( 1.00 and 3.90 ) MPV: 11.2 fL -- Normal range between ( 9.4 and 12.4 ) IG#: 0.02 x10(3)/uL -- Normal range between ( 0.00 and 0.05 ) IG%: 0.30 % -- Normal range between ( 0.00 and 0.60 ) General Chemistry 07/15/2020 12:00 PM Creatinine Level: 1.30 mg/dL -- Normal range between ( 0.55 and 1.02 ) Sodium Level: 139 mmol/L -- Normal range between ( 136 and 146 ) Potassium Level: 4.1 mmol/L -- Normal range between ( 3.5 and 5.1 ) Chloride Level: 108 mmol/L -- Normal range between ( 102 and 112 ) Carbon Dioxide Level: 26 mmol/L -- Normal range between ( 21 and 32 ) Anion Gap: 9 -- Normal range between ( 9 and 20 ) Bilirubin Total: 1.1 mg/dL -- Normal range between ( 0.2 and 1.2 ) A/G Ratio: 1.3 -- Normal range between ( 1.1 and 2.5 ) ALT: 36 Units/Liter -- Normal range between ( 13 and 56 ) AST: 44 Units/Liter -- Normal range between ( 5 and 37 ) Globulin: 3.3 Gram/dL -- Normal range between ( 1.5 and 4.5 ) Alk Phos: 66 Units/Liter -- Normal range between ( 27 and 136 ) Bun/Creatinine: 17.7 -- Normal range between ( 8.0 and 20.0 ) Calcium Level: 9.2 mg/dL -- Normal range between ( 8.4 and 10.1 ) eGFR : 49 mL/min/1.73m2 eGFR NonAfrican: 40 mL/min/1.73m2 Glucose Level: 111 mg/dL -- Normal range between ( 74 and 106 ) Blood Urea Nitrogen: 23 mg/dL -- Normal range between ( 7 and 22 ) Protein Total: 7.6 Gram/dL -- Normal range between ( 6.4 and 8.2 ) Albumin Level: 4.3 Gram/dL -- Normal range between ( 3.4 and 5.0 ) Cardiac Specific Markers 07/15/2020 3:04 PM Troponin I Ultra: <0.015 ng/mL -- Normal range between ( 0.015 and 0.045 ) Diagnostic Radiology 07/15/2020 12:05 PM CR Chest 1 Vw Portable: CR Chest 1 Vw Portable Education Materials Chest Wall Pain Chest wall pain is pain in or around the bones and muscles of your chest. Sometimes, an injury causes this pain. Excessive coughing or overuse of arm and chest muscles may also cause chest wall pain. Sometimes, the cause may not be known. This pain may take several weeks or longer to get better. Follow these instructions at home: Managing pain, stiffness, and swelling ??? If directed, put ice on the painful area: ? Put ice in a plastic bag. ? Place a towel between your skin and the bag. ? Leave the ice on for 20 minutes, 2???3 times per day. Activity ??? Rest as told by your health care provider. ??? Avoid activities that cause pain. These include any activities that use your chest muscles or your abdominal and side muscles to lift heavy items. Ask your health care provider what activities are safe for you. General instructions ??? Take [id number]-[id number] and prescription medicines only as told by your health care provider. ??? Do not use any products that contain nicotine or tobacco, such as cigarettes, e-cigarettes, and chewing tobacco. These can delay healing after injury. If you need help quitting, ask your health care provider. ??? Keep all follow-up visits as told by your health care provider. This is important. Contact a health care provider if: ??? You have a fever. ??? Your chest pain becomes worse. ??? You have new symptoms. Get help right away if: ??? You have nausea or vomiting. ??? You feel sweaty or light-headed. ??? You have a cough with mucus from your lungs (sputum) or you cough up blood. ??? You develop shortness of breath. These symptoms may represent a serious problem that is an emergency. Do not wait to see if the symptoms will go away. Get medical help right away. Call your local emergency services (911 in the [place] Do not drive yourself to the hospital. Summary ??? Chest wall pain is pain in or around the bones and muscles of your chest. ??? Depending on the cause, it may be treated with ice, rest, medicines, and avoiding activities that cause pain. ??? Contact a health care provider if you have a fever, worsening chest pain, or new symptoms. ??? Get help right away if you feel light-headed or you develop shortness of breath. These symptoms may be an emergency. This information is not intended to replace advice given to you by your health care provider. Make sure you discuss any questions you have with your health care provider. Document Released: 10/30/2006 Document Revised: 05/02/2019 Document Reviewed: 05/02/2019 [employer] Patient Education ?? 2020 [employer]. Nonspecific Chest Pain, Adult Chest pain can be caused by many different conditions. It can be caused by a condition that is life-threatening and requires treatment right away. It can also be caused by something that is not life-threatening. If you have chest pain, it can be hard to know the difference, so it is important to get help right away to make sure that you do not have a serious condition. Some life-threatening causes of chest pain include: ??? Heart attack. ??? A tear in the body's main blood vessel (aortic dissection). ??? Inflammation around your heart (pericarditis). ??? A problem in the lungs, such as a blood clot (pulmonary embolism) or a collapsed lung (pneumothorax). Some non life-threatening causes of chest pain include: ??? Heartburn. ??? Anxiety or stress. ??? Damage to the bones, muscles, and cartilage that make up your chest wall. ??? Pneumonia or bronchitis. ??? Shingles infection (varicella-zoster virus). Chest pain can feel like: ??? Pain or discomfort on the surface of your chest or deep in your chest. ??? Crushing, pressure, aching, or squeezing pain. ??? Burning or tingling. ??? Dull or sharp pain that is worse when you move, cough, or take a deep breath. ??? Pain or discomfort that is also felt in your back, neck, jaw, shoulder, or arm, or pain that spreads to any of these areas. Your chest pain may come and go. It may also be constant. Your health care provider will do lab tests and other studies to find the cause of your pain. Treatment will depend on the cause of your chest pain. Follow these instructions at home: Medicines ??? Take evjy-ixl-tmyuczx and prescription medicines only as told by your health care provider. ??? If you were prescribed an antibiotic, take it as told by your health care provider. Do not stop taking the antibiotic even if you start to feel better. Lifestyle ??? Rest as directed by your health care provider. ??? Do not use any products that contain nicotine or tobacco, such as cigarettes and e-cigarettes. If you need help quitting, ask your health care provider. ??? Do not drink alcohol. ??? Make healthy lifestyle choices as recommended. These may include: ? Getting regular exercise. Ask your health care provider to suggest some activities that are safe for you. ? Eating a heart-healthy diet. This includes plenty of fresh fruits and vegetables, whole grains, low-fat (lean) protein, and low-fat dairy products. A dietitian can help you find healthy eating options. ? Maintaining a healthy weight. ? Managing any other health conditions you have, such as high blood pressure (hypertension) or diabetes. ? Reducing stress, such as with yoga or relaxation techniques. General instructions ??? Pay attention to any changes in your symptoms. Tell your health care provider about them or any new symptoms. ??? Avoid any activities that cause chest pain. ??? Keep all follow-up visits as told by your health care provider. This is important. This includes visits for any further testing if your chest pain does not go away. Contact a health care provider if: ??? Your chest pain does not go away. ??? You feel depressed. ??? You have a fever. Get help right away if: ??? Your chest pain gets worse. ??? You have a cough that gets worse, or you cough up blood. ??? You have severe pain in your abdomen. ??? You faint. ??? You have sudden, unexplained chest discomfort. ??? You have sudden, unexplained discomfort in your arms, back, neck, or jaw. ??? You have shortness of breath at any time. ??? You suddenly start to sweat, or your skin gets clammy. ??? You feel nausea or you vomit. ??? You suddenly feel lightheaded or dizzy. ??? You have severe weakness, or unexplained weakness or fatigue. ??? Your heart begins to beat quickly, or it feels like it is skipping beats. These symptoms may represent a serious problem that is an emergency. Do not wait to see if the symptoms will go away. Get medical help right away. Call your local emergency services (911 in the [place] Do not drive yourself to the hospital. Summary ??? Chest pain can be caused by a condition that is serious and requires urgent treatment. It may also be caused by something that is not life-threatening. ??? If you have chest pain, it is very important to see your health care provider. Your health care provider may do lab tests and other studies to find the cause of your pain. ??? Follow your health care provider's instructions on taking medicines, making lifestyle changes, and getting emergency treatment if symptoms become worse. ??? Keep all follow-up visits as told by your health care provider. This includes visits for any further testing if your chest pain does not go away. This information is not intended to replace advice given to you by your health care provider. Make sure you discuss any questions you have with your health care provider. Document Released: 08/09/2006 Document Revised: 05/02/2019 Document Reviewed: 05/02/2019 [employer] Patient Education ?? 2020 [employer] Emergency Awareness and Preventative Care STROKE is an EMERGENCY Every Minute Counts Act FAST and Check for these signs: FACE Does the face look uneven? ARM Does one arm drift down? SPEECH Does their speech sound strange? TIME Call at any sign of stroke Stroke Risk Factors Atrial Fibrillation (irregular heartbeat) Diabetes Family history of stroke Heart Disease Heavy alcohol use High Blood Pressure High Cholesterol Physical inactivity and obesity Smoking Cigarette Smoking The facts are clear, cigarette smoking will shorten your life. Smoking can cause many illnesses along the way. As a healthcare provider, we recommend that you stop smoking. Assistance with quitting is available by contacting 7-213-DUNB-NOW. This is a free resource providing counseling, support, and referral. Or you may contact your personal physician. National Suicide Prevention Lifeline: The National Suicide Prevention Lifeline is a national network of local crisis centers that provides free and confidential emotional support to people in suicidal crisis or emotional distress 24 hours a day, 7 days a week. Don't Wait! Stop a Heart Attack Before it Starts What is a heart attack? A heart attack is damage or to a part of the heart from severely decreased or lack of blood flow to the heart. Over time, arteries can become narrow from the buildup of fat and cholesterol, which is called plaque. The plaque can rupture causing a blood clot to form. When the blood clot forms, the artery can become severely narrowed or completely blocked, causing a heart attack. Heart attack is the leading cause of in the [place]. 85% of muscle damage occurs within the first 2 hours. Delay in the recognition of heart attack symptoms increases the chances of . Know the early symptoms of a heart attack: Nausea Feeling of fullness in chest Jaw Pain Pain that travels down one or both arms Fatigue/being tired Anxiety Back Pain Chest pressure, squeezing, or discomfort Shortness of breath Sweating, or a cold sweat Feeling of impending doom There are unusual signs of a heart attack, too! Women, the elderly, and diabetics may present with atypical symptoms: Fainting/dizziness Weakness Confusion Risk Factors for a Heart Attack Some heart disease risk factors, such as age and family history, cannot be changed. Others, like smoking and lack of exercise, can be changed. Smoking High Cholesterol High Blood Pressure Family History Obesity Age Gender (Males are at higher risk) Lack of Exercise Diabetes Diet Stress Excessive Alcohol Intake If you or someone you know is experiencing the signs and symptoms of a heart attack, DON???T DELAY. Call immediately and seek help. If someone collapses, perform CPR! Do not attempt to drive if you are having symptoms of heart attack. Hands-Only CPR Why Hands-Only CPR? Hands-Only CPR has been shown to be as effective as conventional CPR for cardiac arrests that occur outside of a hospital. Survival depends on immediately receiving CPR from someone nearby. How do you perform Hands-Only CPR? There are two easy steps: Call if you see a teen or adult collapse Push hard and fast in the center of the chest at a beat of 100 beats per minute. Save a life! 4 WAYS TO GET AHEAD OF SEPSIS SEPSIS is a MEDICAL EMERGENCY. Time matters! Infections put you and your family at risk for a life-threatening condition called sepsis. Sepsis is the body's extreme response to an infection. It is life-threatening, and without timely treatment, sepsis can rapidly lead to tissue damage, organ failure, and . Sepsis happens when an infection you already have-in your skin, lungs, urinary tract or somewhere else-triggers a chain reaction throughout your body. 1 PREVENT INFECTIONS Take good care of chronic conditions. Talk to your doctor about getting the recommended vaccines. 2 PRACTICE GOOD HYGIENE Wash your hands frequently. Keep cuts or open sores clean and covered until they are healed. 3 KNOW THE SYMPTOMS Confusion or disorientation Shortness of breath High heart rate Fever, shivering, or feeling very cold Extreme pain or discomfort Clammy or sweaty skin 4 ACT FAST Get medical care IMMEDIATELY if you suspect sepsis or if you have an infection that is not getting better or is getting worse. To learn more about sepsis and how to prevent infections, visit www.cdc.gov/sepsis. The examination and treatment you have received in the Emergency Department has been done to provide an appropriate evaluation and stabilizing treatment on an emergency basis only. Given the limited resources, it is not meant to be a substitute for complete medical care. The follow-up doctor you named will receive a copy of your records and all test reports. IT IS IMPORTANT THAT YOU SCHEDULE A FOLLOW-UP APPOINTMENT AND ARE RE-EVALUATED. You should report any new complaints, symptoms, or remaining problems at that time. IT IS IMPOSSIBLE FOR THE EMERGENCY DEPARTMENT TO RECOGNIZE AND TREAT ALL ELEMENTS OF INJURY OR ILLNESS IN A SINGLE VISIT. If you have been referred to a specialist physician, it means that we believe you may have a condition that requires the expertise of a specialist. These physicians work in partnership with the hospital and have agreed to see referred patients in their office for further evaluation. KEEP IN MIND THAT THE SPECIALIST HAS HIS/HER OWN OFFICE POLICIES WHICH MAY REQUIRE PROPER INSURANCE OR PAYMENT UP FRONT BEFORE THE SPECIALIST WILL SEE YOU. It is your responsibility to call the specialist physician to make an appointment. We do not have the ability to refer patients to specialists/physicians that work with specific insurance companies. Please be advised that all financial charges or billing practices are determined by that practice, not the hospital. If your insurance company requires that you see a specialist from their approved list, it is your responsibility to contact your insurance company to make those arrangements. It is also your responsibility to follow any other requirements of your insurance company necessary to obtain coverage for claims submitted. We will bill your insurance; however, you are responsible today for any co-pay amounts. You will receive a separate bill for any services you may have received including: emergency, radiology, or pathology physicians. Patient Name:GINA HECTOR I have received this information and was given the opportunity to ask questions. Patient/Assembler Installer Structures Name: Patient/Assembler Installer Structures Signature: Relationship to Patient: Clinician/Hospital Assembler Installer Structures Signature: Please Provide a Telephone Number Where You Can Be Reached: Is it Permissible To Leave a Message? Date: documented in this encounter Plan of Treatment Not on file documented as of this encounter Visit Diagnoses Not on filedocumented in this encounter Care Teams Air Conditioning Coil Assembler Relationship Specialty Start Date End Date José Miguel Verde MD [address] [place] [id number] PCP - General Adolescent Medicine 03/07/23 documented as of this encounter
--- OUTSIDE RECORDS SUMMARY | 2025-05-04 12:51 | XMS_ITS | Encounter Summary ---
Author Organization [facility] In iatives Address [address] [place] [id number] Care Team Providers Care Grease Refining Supervisor Name Role Phone José Miguel Verde MD Primary Care Provider + [phone] Encounter Details Date Type Department Care Team (Late st Contact Info) Description 01/08/2019 Transcribed Document [facility] [place] [facility] Family Medicine [address] [place] [address] ProviderNitin MD [address] [place] [address] Social History Tobacco Use Types Packs/Day Years Used Date Smoking Tobacco: Never Assessed Comments Unknown Sex and Gender Information Value Date Recorded Sex Assigned at Female 05/10/2022 1:38 PM CDT Legal Sex Female 1:38 PM CDT Gender Identity Female 05/10/2022 1:38 PM CDT Sexual Orientation Not on file documented as of this encounter Miscellaneous Notes * Cerner Conversion Note - Historical ProviderMD - 01/08/2019 11:21 PM SUMMER LAW ASSOCIATE Electronically signed by [facility] Conversion Commutator Operator Cerner at 02/26/2023 11:12 PM CDT documented in this encounter Plan of Treatment Not on file documented as of this encounter Visit Diagnoses Not on filedocumented in this encounter Care Teams Grease Refining Supervisor Relationship Specialty Start Date End Date José Miguel Verde MD [address] [place] [id number] PCP - General Adolescent Medicine 03/07/23 documented as of this encounter
--- OUTSIDE RECORDS SUMMARY | 2025-05-04 12:51 | XMS_ITS | Encounter Summary ---
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 [address] [place] [address] Patient Information Name: GINA HECTOR Age: 73 Years Date of : 1945 Arrival Time: 01/08/2019 18:41:00 Diagnosis Atypical chest pain; GERD (gastroesophageal reflux disease); Hypertension Primary Care Physician: MELVIN RASCON MD-INT Provider Information Primary Provider: KEYUR BROWN Secondary Provider: GINA HECTOR has been given the following list of patient education materials, prescriptions and follow-up instructions: Follow-up Instructions: With: Address: When: Return to Emergency Department Within As needed Comments: Follow-up as instructed Return if condition worsens With: Address: When: [facility] Within 2 to 3 days Comments: For further assistance with your Primary Care Physician please contact the Patient Resource Center at [phone]. Please follow up with Lester Peace. With: Address: When: MELVIN KARINELENITA [address], [address] [place] [phone] Business (1) Within 2 to 3 days Patient Education Materials: Nonspecific Chest Pain Chest pain can be caused by many different conditions. There is a chance that your pain could be related to something serious, such as a heart attack or a blood clot in your lungs. Chest pain can also be caused by conditions that are not life-threatening. If you have chest pain, it is very important to follow up with your doctor. Follow these instructions at home: Medicines ??? If you were prescribed an antibiotic medicine, take it as told by your doctor. Do not stop taking the antibiotic even if you start to feel better. ??? Take oqth-ryb-ikmmwqr and prescription medicines only as told by your doctor. Lifestyle ??? Do notuse any products that contain nicotine or tobacco, such as cigarettes and e-cigarettes. If you need help quitting, ask your doctor. ??? Do notdrink alcohol. ??? Make lifestyle changes as told by your doctor. These may include: ? Getting regular exercise. Ask your doctor for some activities that are safe for you. ? Eating a heart-healthy diet. A diet specialist (dietitian) can help you to learn healthy eating options. ? Staying at a healthy weight. ? Managing diabetes, if needed. ? Lowering your stress, as with deep breathing or spending time in nature. General instructions ??? Avoid any activities that make you feel chest pain. ??? If your chest pain is because of heartburn: ? Raise (elevate) the head of your bed about 6 inches (15 cm). You can do this by putting blocks under the bed legs at the head of the bed. ? Do notsleep with extra pillows under your head. That does not help heartburn. ??? Keep all follow-up visits as told by your doctor. This is important. This includes any further testing if your chest pain does not go away. Contact a doctor if: ??? Your chest pain does not go away. ??? You have a rash with blisters on your chest. ??? You have a fever. ??? You have chills. Get help right away if: ??? Your chest pain is worse. ??? You have a cough that gets worse, or you cough up blood. ??? You have very bad (severe) pain in your belly (abdomen). ??? You are very weak. ??? You pass out (faint). ??? You have either of these for no clear reason: ? Sudden chest discomfort. ? Sudden discomfort in your arms, back, neck, or jaw. ??? You have shortness of breath at any time. ??? You suddenly start to sweat, or your skin gets clammy. ??? You feel sick to your stomach (nauseous). ??? You throw up (vomit). ??? You suddenly feel light-headed or dizzy. ??? Your heart starts to beat fast, or it feels like it is skipping beats. These symptoms may be an emergency. Do not wait to see if the symptoms will go away. Get medical help right away. Call your local emergency services (911 in the [place] Do not drive yourself to the hospital. This information is not intended to replace advice given to you by your health care provider. Make sure you discuss any questions you have with your health care provider. Document Released: 04/17/2009 Document Revised: 07/24/2017 Document Reviewed: 07/24/2017 [employer] Interactive Patient Education ? 2017 Elsevier Inc. Food Choices for Gastroesophageal Reflux Disease, Adult When you have gastroesophageal reflux disease (GERD), the foods you eat and your eating habits are very important. Choosing the right foods can help ease your discomfort. What guidelines do I need to follow? Choose fruits, vegetables, whole grains, and low-fat dairy products. ??? Choose low-fat meat, fish, and poultry. ??? Limit fats such as oils, salad dressings, butter, nuts, and avocado. ??? Keep a food diary. This helps you identify foods that cause symptoms. ??? Avoid foods that cause symptoms. These may be different for everyone. ??? Eat small meals often instead of 3 large meals a day. ??? Eat your meals slowly, in a place where you are relaxed. ??? Limit fried foods. ??? Cook foods using methods other than frying. ??? Avoid drinking alcohol. ??? Avoid drinking large amounts of liquids with your meals. ??? Avoid bending over or lying down until 2?3 hours after eating. What foods are not recommended? These are some foods and drinks that may make your symptoms worse: VegetablesTomatoes. Tomato juice. Tomato and spaghetti sauce. [place] peppers. Onion and garlic. Horseradish. FruitsOranges, grapefruit, and lemon (fruit and juice). MeatsHigh-fat meats, fish, and poultry. This includes hot dogs, ribs, ham, sausage, salami, and campos. DairyWhole milk and chocolate milk. Sour cream. Cream. Butter. Ice cream. Cream cheese. DrinksCoffee and tea. Bubbly (carbonated) drinks or energy drinks. CondimentsHot sauce. Barbecue sauce. Sweets/DessertsChocolate and cocoa. Donuts. Peppermint and spearmint. Fats and OilsHigh-fat foods. This includes Haitian fries and potato chips. OtherVinegar. Strong spices. This includes black pepper, white pepper, red pepper, cayenne, bhandari powder, cloves, ender, and chili powder. The items listed above may not be a complete list of foods and drinks to avoid. Contact your dietitian for more information. This information is not intended to replace advice given to you by your health care provider. Make sure you discuss any questions you have with your health care provider. Document Released: 04/30/2013 Document Revised: 04/06/2017 Document Reviewed: 09/03/2014 [employer] Interactive Patient Education ? 2017 [employer] Gastroesophageal Reflux Disease, Adult Introduction Normally, food travels down the esophagus and stays in the stomach to be digested. If a person has gastroesophageal reflux disease (GERD), food and stomach acid move back up into the esophagus. When this happens, the esophagus becomes sore and swollen (inflamed). Over time, GERD can make small holes (ulcers) in the lining of the esophagus. Follow these instructions at home: Diet??? Follow a diet as told by your doctor. You may need to avoid foods and drinks such as:? Coffee and tea (with or without caffeine). ? Drinks that contain alcohol. ? Energy drinks and sports drinks. ? Carbonated drinks or sodas. ? Chocolate and cocoa. ? Peppermint and mint flavorings. ? Garlic and onions. ? Horseradish. ? Spicy and acidic foods, such as peppers, chili powder, bhandari powder, vinegar, hot sauces, and BBQ sauce. ? [place] fruit juices and citrus fruits, such as oranges, olga, and limes. ? Tomato-based foods, such as red sauce, chili, salsa, and pizza with red sauce. ? Fried and fatty foods, such as donuts, czech fries, potato chips, and high-fat dressings. ? High-fat meats, such as hot dogs, rib eye steak, sausage, ham, and campos. ? High-fat dairy items, such as whole milk, butter, and cream cheese. ??? Eat small meals often. Avoid eating large meals. ??? Avoid drinking large amounts of liquid with your meals. ??? Avoid eating meals during the 2?3 hours before bedtime. ??? Avoid lying down right after you eat. ??? Do notexercise right after you eat. General instructions??? Pay attention to any changes in your symptoms. ??? Take tdag-rzb-jxhlygz and prescription medicines only as told by your doctor. Do not take aspirin, ibuprofen, or other NSAIDs unless your doctor says it is okay. ??? Do notuse any tobacco products, including cigarettes, chewing tobacco, and e-cigarettes. If you need help quitting, ask your doctor. ??? Wear loose clothes. Do not wear anything tight around your waist. ??? Raise (elevate) the head of your bed about 6 inches (15 cm). ??? Try to lower your stress. If you need help doing this, ask your doctor. ??? If you are overweight, lose an amount of weight that is healthy for you. Ask your doctor about a safe weight loss goal. ??? Keep all follow-up visits as told by your doctor. This is important. Contact a doctor if: ??? You have new symptoms. ??? You lose weight and you do not know why it is happening. ??? You have trouble swallowing, or it hurts to swallow. ??? You have wheezing or a cough that keeps happening. ??? Your symptoms do not get better with treatment. ??? You have a hoarse voice. Get help right away if: ??? You have pain in your arms, neck, jaw, teeth, or back. ??? You feel sweaty, dizzy, or light-headed. ??? You have chest pain or shortness of breath. ??? You throw up (vomit) and your throw up looks like blood or coffee grounds. ??? You pass out (faint). ??? Your poop (stool) is bloody or black. ??? You cannot swallow, drink, or eat. This information is not intended to replace advice given to you by your health care provider. Make sure you discuss any questions you have with your health care provider. Document Released: 04/17/2009 Document Revised: 04/06/2017 Document Reviewed: 02/24/2016 ? 2017 Elsevier Allergies: levofloxacin; penicillin; ibuprofen Medication Information: Laboratory or Other Results This Visit (last charted value for your 01/08/2019 visit) Hematology 01/08/19 19:06:00 WBC: 5.8 K/uL -- Normal range between ( 4.5 and 10.5 ) RBC: 4.60 Million/uL -- Normal range between ( 3.93 and 5.22 ) Hct: 44.3 % -- Normal range between ( 34.1 and 44.9 ) Hgb: 14.9 g/dL -- Normal range between ( 11.2 and 15.7 ) Platelet Count: 137 K/uL -- Normal range between ( 163 and 369 ) MCH: 32.4 pg -- Normal range between ( 25.6 and 32.2 ) MCHC: 33.6 Gram/dL -- Normal range between ( 32.2 and 36.5 ) MCV: 96.3 fL -- Normal range between ( 79.0 and 94.8 ) Slide Review: No Eos %: 0.5 % -- Normal range between ( 0.0 and 7.0 ) Gooding #: 0.53 K/uL -- Normal range between ( 0.16 and 1.00 ) Eos #: 0.03 x10(3)/uL -- Normal range between ( 0.00 and 0.80 ) Gooding %: 9.2 % -- Normal range between ( 3.0 and 9.0 ) Baso %: 0.3 % -- Normal range between ( 0.0 and 1.5 ) Baso #: 0.02 x10(3)/uL -- Normal range between ( 0.00 and 0.20 ) RDW: 12.9 % -- Normal range between ( 11.7 and 14.9 ) Neut %: 71.7 % -- Normal range between ( 34.0 and 71.0 ) Neut #: 4.13 K/uL -- Normal range between ( 1.56 and 6.13 ) Lymph %: 18.0 % -- Normal range between ( 19.3 and 53.1 ) Lymph #: 1.04 x10(3)/uL -- Normal range between ( 1.00 and 3.90 ) MPV: 10.8 fL -- Normal range between ( 9.4 and 12.4 ) IG#: 0.02 x10(3)/uL -- Normal range between ( 0.00 and 0.05 ) IG%: 0.30 % -- Normal range between ( 0.00 and 0.60 ) General Chemistry 01/08/19 19:06:00 Creatinine Level: 1.30 mg/dL -- Normal range between ( 0.55 and 1.02 ) Sodium Level: 142 mmol/L -- Normal range between ( 136 and 146 ) Potassium Level: 3.6 mmol/L -- Normal range between ( 3.5 and 5.1 ) Chloride Level: 108 mmol/L -- Normal range between ( 102 and 112 ) Carbon Dioxide Level: 24 mmol/L -- Normal range between ( 21 and 32 ) Anion Gap: 14 -- Normal range between ( 9 and 20 ) Bilirubin Total: 1.0 mg/dL -- Normal range between ( 0.2 and 1.2 ) A/G Ratio: 1.6 -- Normal range between ( 1.1 and 2.5 ) ALT: 38 Units/Liter -- Normal range between ( 13 and 56 ) AST: 40 Units/Liter -- Normal range between ( 5 and 37 ) Globulin: 2.9 Gram/dL -- Normal range between ( 1.5 and 4.5 ) Alk Phos: 56 Units/Liter -- Normal range between ( 27 and 136 ) Bun/Creatinine: 14.6 -- Normal range between ( 8.0 and 20.0 ) Calcium Level: 9.5 mg/dL -- Normal range between ( 8.4 and 10.1 ) eGFR : 49 mL/min/1.73m2 eGFR NonAfrican: 40 mL/min/1.73m2 Glucose Level: 104 mg/dL -- Normal range between ( 74 and 106 ) Magnesium Level: 2.3 mg/dL -- Normal range between ( 1.5 and 2.4 ) Blood Urea Nitrogen: 19 mg/dL -- Normal range between ( 7 and 22 ) Protein Total: 7.4 Gram/dL -- Normal range between ( 6.4 and 8.2 ) Albumin Level: 4.5 Gram/dL -- Normal range between ( 3.4 and 5.0 ) Cardiac Specific Markers 01/08/19 22:28:00 Troponin I Ultra: <0.015 ng/mL -- Normal range between ( 0.015 and 0.045 ) 01/08/19 19:06:00 ProBNP: 729 pg/mL -- Normal range between ( 0 and 125 ) Coagulation 01/08/19 19:06:00 INR: 1.0 -- Normal range between ( 0.9 and 1.1 ) PT: 11.0 Second(s) -- Normal range between ( 9.6 and 12.0 ) Medication Comment: Procedures: Laboratory Orders Name Status AutoDiff Completed CBCD Completed CMP Completed MG Completed PROBNP Completed PT Completed TROPIULT Completed TROPIULT Completed Radiology Orders Name Status CR Chest 1 Vw Portable Ordered Cardiology Orders Name Status ECG Completed ECG Ordered This statement is to verify that HECTOR GINA CALDERON was seen at [facility] Emergency Department on ,01/08/2019 23:24:10. This is not a work excuse, if a work excuse was needed it will be in addition to this statement as a separate form. IMPORTANT: The examination and treatment you have received [...] that requires the expertise of a specialist. KEEP IN MIND THAT THE SPECIALIST HAS HIS/HER OWN OFFICE POLICIES WHICH MAY REQUIRE PROPER INSURANCE OR PAYMENT UP FRONT BEFORE THE SPECIALIST WILL SEE YOU. It is your responsibility to call the specialist physician to make an appointment. We do not have the ability to identify specialists/physicians that work with specific insurance companies. [...] necessary to obtain coverage for claims submitted. If you had special tests, such as EKG???s or X-rays, the interpretation of your tests given to you by the Emergency Dept. Physician is a preliminary report. Some fractures and illnesses fail to show up on preliminary tests. We will review them again within 24-48 hours. We will call you if there are any new suggestions. If your symptoms continue notify your physician. After you leave, you should follow the instructions below. In all events, you may obtain a copy of your Emergency Department visit from Medical Records. Please call to be directed to this department. We will bill your insurance; however, you are responsible today for any co-pay amounts. You will receive a separate bill for any services you may have received including: emergency, radiology, or pathology physicians. Please be sure we have an accurate contact phone number and address, should we need to call you for any reason. CIGARETTE SMOKING: The facts are clear; cigarette smoking will shorten your life. Smoking can cause many illnesses along the way. As a healthcare provider, [facility] recommends that you stop smoking. Assistance with quitting is available by contacting 7-522-NEZM-NOW. This is a free resource providing counseling, support, and referral. Or you may contact your personal physician. As part of your treatment plan, [...] cramping, rapid heartbeat, difficulty sleeping, and nervousness. The home medications listed are only as accurate as the information you provided. Please continue taking all of your medications prescribed by your Primary Care Provider unless specifically told to change or discontinue the medication. Please direct any questions regarding your home medications to your Primary Care Provider. YOU ARE THE MOST IMPORTANT FACTOR IN YOUR RECOVERY. ?? Follow your instructions carefully ?? Take your medicines as prescribed ?? Most important, see a provider as discussed. If you do not have a provider, we can provide a list of clinics Confidential This message and accompanying documents are covered by Electronic Communications Privacy Act 18 U.S.C. ???Sections 5449-3782,?? and contain information intended for the specified individual(s) only. This information is confidential. If you are not the intended recipient or an agent responsible for delivering it to the intended recipient, you are hereby notified that you have received the document in error and that any review, dissemination, copying, or the taking of any action based on the contents of this information is strictly prohibited. If you have received this communication in error, please notify us immediately by email, and delete the original message. 4 WAYS TO GET AHEAD OF SEPSIS SEPSIS is a MEDICAL EMERGENCY. Time matters! Infections put you and your family at risk for a life-threatening condition called sepsis. Sepsis is the body???s extreme response to an infection. It is life-threatening, and without timely treatment, sepsis can rapidly lead to tissue damage, organ failure, and . Sepsis happens when an infection you already have???in your skin, lungs, urinary tract or somewhere else???triggers a chain reaction throughout your body. 1 [...] sepsis or if you have an infection that???s not getting better or is getting worse. To learn more about sepsis and how to prevent infections, visit www.cdc.gov/sepsis. STROKE is an EMERGENCY Every Minute Counts ACT F.A.S.T! FACE ?? Facial droop ?? Uneven smile ARM ?? Arm numbness ?? Arm weakness SPEECH ?? Slurred speech ?? Difficulty speaking or understanding TIME ?? Call 911 and get to the hospital immediately Have the ambulance go to the nearest stroke center. STROKE Risk Factors High blood pressure High cholesterol Heart Disease Diabetes Smoking Heavy alcohol use Physical inactivity and obesity Atrial Fibrillation (irregular heartbeat) Family history of stroke Acknowledgment I hereby acknowledge receipt of these instructions and information above. I understand that I have received Emergency Treatment only which is not a substitute for complete medical care and acknowledge that all of my medical problems may not be known, identified, or treated prior to my release. I UNDERSTAND THE NEED TO ARRANGE FOLLOW-UP CARE WITH THE PHYSICIAN INDICATED. I UNDERSTAND THAT I SHOULD CONTACT MY PHYSICIAN IMMEDIATELY OR RETURN TO THE EMERGENCY DEPARTMENT IF MY CONDITION WORSENS, FAILS TO IMPROVE, OR NEW SYMPTOMS APPEAR. Vital Signs B/P PULSE RESP. RATE TEMPERATURE PULSE OX Signature of Emergency Provider Date / Time Signature of Emergency Nurse Date / Time Reminder: Be sure to sign up for the My [facility] patient portal, which gives you 05/06 access to your medical information ??? including these discharge instructions ??? using your computer, smartphone, or tablet. Just go to [employer] to get started. Questions? Call . Acknowledgment I hereby acknowledge receipt of these instructions and information above. I understand that I have received Emergency Treatment only which is not a substitute for complete medical care and acknowledge that all of my medical problems may not be known, identified, or treated prior to my release. I UNDERSTAND THE NEED TO ARRANGE FOLLOW-UP CARE WITH THE PHYSICIAN INDICATED. I UNDERSTAND THAT I SHOULD CONTACT MY PHYSICIAN IMMEDIATELY OR RETURN TO THE EMERGENCY DEPARTMENT IF MY CONDITION WORSENS, FAILS TO IMPROVE, OR NEW SYMPTOMS APPEAR. Signature of Patient / Responsible Person Date / Time Please provide a telephone number where you can be reached. The best time to call is between: It is permissable to leave a message if no answer: Yes____ No____ Nurse Providing Instructions: Emergency Physician: Electronically signed by Drew, [facility] Conversion Work Checker Cerner at 02/26/2023 11:12 PM CDT documented in this encounter Plan of Treatment Not on file documented as of this encounter Visit Diagnoses Not on filedocumented in this encounter Care Teams Kit Planner Relationship Specialty Start Date End Date José Miguel Verde MD [address] [place] [id number] PCP - General Adolescent Medicine 03/07/23 documented as of this encounter
--- OUTSIDE RECORDS SUMMARY | 2025-05-04 12:51 | XMS_ITS | Clinical Summary ---
Author Organization [facility] [facility] In [facility]atives Address [address] [place] [address] Care Team Providers Care Heating And Ventilation Engineer Name Role Phone José Miguel Verde MD Primary Care Provider + [phone] Allergies Active Allergy Reactions Criticality Noted Date [...] by mouth in the morning. Active pancrelipase, Ftr-Qudd-Txkf, (CREON) 36,000-114,000 - 180,000 unit CpDR capsule [...] file 03/07/2023 Housing Stability Vital Sign Answer Farhan e Recorded In the last 12 months, [...] place to sleep or slept in a correction (including now)? No 03/07/2023 Interpersonal Safety Answer [...] Date Hamilton rded Speak language other than Greek at home Not on file 12/01/2023 Want [...] Mass Index 39.06 05/28/2024 9:48 AM EDT Plan of Treatment Health Maintenance Due Date Last Done Comments DXA SCAN 1945 Depression Screening (12+) 1958 Hepatitis C Screening 1964 DTAP/TDAP/TD VACCINES (1 - Tdap) 1965 Shingles Vaccine (Zoster) (1 of 2) 1964 Medicare Initial AWV [id number] 10/14/2012 Respiratory Syncytial Virus (RSV) Adult or (1 - 1-dose 75+ series) 2021 COVID-19 VACCINE (5 - 2023-2 5 season) 2024 05/20/2022, 08/11/2021, 01/06/2021, Additional history exists Falls Risk Screening 11/13/2024 Tobacco Cessation Counseling and Screening (12+) 05/28/2025 05/28/2024 Influenza Vaccine (Season Ended) 2025 Pneumococcal 50+ years Completed 01/04/2018, [address] [place] [id number] MEDICARE PART A B [facility] SU[facility] Advance Directives For more information, please contact: [phone] * Full Code (Latest Code Status on File) Date Activated Date Inactivated Comments 03/10/2023 5:00 PM 03/11/2023 12:05 PM * Full Code Date Activated Date Inactivated Comments 03/07/2023 2:51 PM 03/10/2023 5:00 PM Care Teams Heating And Ventilation Engineer Relationship Specialty Start Date End Date José Miguel Verde MD [address] [place] [id number] PCP - General Adolescent Medicine 03/07/23
--- OUTSIDE RECORDS SUMMARY | 2025-05-04 12:51 | XMS_ITS | Encounter Summary ---
Author Organization [facility] In iatives Address [address] [place] [address] Care Team Providers Care Vba Programmer Name Role Phone José Miguel Verde MD Primary Care Provider + [phone] Encounter Details Date Type Department Care Team (Late st Contact Info) Description 01/08/2019 Transcribed Document [facility] [place] Family Medicine [address] [place] [address] ProviderNitin MD [address], [place] [id number] Social History Tobacco Use Types Packs/Day Years [...] Conversion Note - Nitin ProviderMD - 01/08/2019 6:41 PM SOLIDWORKS DRAFTER ED Assessment Entered On: 01/08/2019 19:12 EST Performed On: 01/08/2019 19:11 EST by Roc Saenz RN ED Quick Look Assessment Level of Consciousness : Alert, Awake Affect/Behavior : Appropriate, Calm Orientation : Oriented x 4 Roc Saenz RN - 01/08/2019 19:11 EST ED General-Functional Assess Information Obtained From : Patient Communication Barrier : None Primary Language : Indian Any Spiritual/Cultural Needs or Requests : No Currently in Unsafe Situation : No Roc Saenz RN - 01/08/2019 19:11 EST Social Habits Smoking Status : Never (less than 100 in lifetime; none in last 30 days) Smokeless Tobacco Status : Never Desires Tobacco Cessation Calc : 0 Roc Saenz RN - 01/08/2019 19:11 EST Social History (As Of: 01/08/2019 19:12:55 EST) EENT Assessment EENT Assessment WDL : Roc Guerrero RN - 01/08/2019 19:11 EST Cardiovascular ASMT, ED Cardiovascular Assessment WDL : WDFermin with exceptions (Comment: pt here c/o chest pain that started this date pt states that its pressure in nature denies radiating pain or SOA [Roc Saenz RN - 01/08/2019 19:11 EST] ) Rco Saenz RN - 01/08/2019 19:11 EST Respiratory Respiratory Assessment WDL : Roc Guerrero RN - 01/08/2019 19:11 EST Gastrointestinal ED Gastrointestinal Assessment WDL : Roc Guerrero RN - 01/08/2019 19:11 EST Genitourinary Assessment, ED Genitourinary Assessment WDL : Roc Guerrero RN - 01/08/2019 19:11 EST Musculoskeletal Musculoskeletal Assessment WDL : Roc Guerrero RN - 01/08/2019 19:11 EST Integumentary Assessment Integumentary Assessment WDL : Roc Guerrero RN - 01/08/2019 19:11 EST Neurologic ASMT, ED Neurologic Assessment WDL : Roc Guerrero RN - 01/08/2019 19:11 EST Electronically signed by Drew [facility] Conversion Airport Ramp Supervisor Cerner at 02/26/2023 11:00 PM CDT documented in this encounter Plan of Treatment Not on file documented as of this encounter Visit Diagnoses Not on filedocumented in this encounter Care Teams Vba Programmer Relationship Specialty Start Date End Date José Miguel Verde MD [address] [place] [address] PCP - General Adolescent Medicine 03/07/23 documented as of this encounter
--- OUTSIDE RECORDS SUMMARY | 2025-05-04 12:51 | XMS_ITS | Encounter Summary ---
Author Organization [facility] In iatives Address [address] [place] [address] Care Team Providers Care Manager Language Name Role Phone José Miguel Verde MD Primary Care Provider + [phone] Encounter Details Date Type Department Care Team (Late st Contact Info) Description 07/15/2020 Transcribed Document [facility] [place] Family Medicine [address] [place] [address] ProviderNitin MD [address], [place] [id number] Social History Tobacco Use Types Packs/Day Years [...] Conversion Note - Historical ProviderMD - 07/15/2020 7:55 PM CDT CR Chest 1 Vw Portable Ordered: 07/15/2020 Modified Reason for Exam: CP 07/15/2020 16:06 07/15/2020 19:55 (CARMENCITA KHAN PA-C) Reviewed by Provider, No further action required x1 Electronically signed by Drew [facility] Conversion Vacuum Spindle Sander Cerner at 02/26/2023 11:08 PM CDT documented in this encounter Plan of Treatment Not on file documented as of this encounter Visit Diagnoses Not on filedocumented in this encounter Care Teams Manager Language Relationship Specialty Start Date End Date José Miguel Verde MD [address] [place] [address] PCP - General Adolescent Medicine 03/07/23 documented as of this encounter
--- OUTSIDE RECORDS SUMMARY | 2025-05-04 12:51 | XMS_ITS | Encounter Summary ---
Author Organization [facility] In iatives Address [address] [place] [address] Care Team Providers Care Ornament Stitcher Name Role Phone José Miguel Verde MD Primary Care Provider + [phone] Encounter Details Date Type Department Care Team (Late st Contact Info) Description 07/15/2020 Transcribed Document [facility] [place] Family Medicine [address] [place] [address] ProviderNitin MD [address], [place] [id number] Social History Tobacco Use Types Packs/Day Years [...] Nitin ProviderMD - 07/15/2020 11:47 AM CDT ED Triage Entered On: 07/15/2020 11:58 EDT Performed On: 07/15/2020 11:56 EDT by CARMEN PICKETT, MYCOLOGY TEACHER Triage Across the Room Chief Complaint : pt c/o CP for 2 days, hurting in left arm, sharp 04/22, took NTG yesterday went away, started today took NTH with xanax and now a 4/10, no NVD, Triage Date/Time : 07/15/2020 11:56 EDT CARMEN PICKETT RN - 07/15/2020 11:56 EDT DCP GENERIC CODE Tracking Acuity : 2 - Emergent Tracking Group : [facility] ED CARMEN PICKETT RN - 07/15/2020 11:56 EDT Mode of Arrival : Ambulatory Transported to ED by : Private vehicle To Room Via : Wheelchair Accompanied By : Unaccompanied ED Vital Signs : Document Height & Weight : Document ED Allergies : Document ED Reason for Visit : Document Tetanus Immunization : Unknown Litigation Legal Assistant Needed : No CARMEN PICKETT RN - 07/15/2020 11:56 EDT Infectious Disease History Has the patient ever been tested for COVID-19? : No, Patient stated Does patient have symptoms of COVID-19? : No COVID19 Screening : No Experiencing Infectious Disease Symptoms : No symptoms Physical contact outside [place] in the last 30 days : No Infectious Disease History : None Tuberculosis Symptoms : None CARMEN PICKETT RN - 07/15/2020 11:56 EDT Vital Signs ED Temperature Source : Oral Temperature Mode : Fahrenheit Temperature, Fahrenheit : 98.2 Deg F ED Pain : Yes Clinical Temperature, C : 36.8 Deg C Oxygen Therapy Mode : Room air Peripheral Pulse Rate : 67 bpm Respiratory Rate : 18 Breaths/Min Systolic Blood Pressure : 142 mmHg (HI) Diastolic Blood Pressure : 102 mmHg (HI) Oxygen Saturation : 95 % CARMEN PICKETT RN - 07/15/2020 11:56 EDT Allergy (As Of: 07/15/2020 11:58:46 EDT) Allergies (Active) ibuprofen Estimated Onset Date: Unspecified ; Reactions: Itching, Itching ; Created By: TONY Cervantes; Reaction Status: Active ; Category: Drug ; Substance: ibuprofen ; Type: Allergy ; Updated By: TONY Cervantes; Reviewed Date: 07/15/2020 11:58 EDT levofloxacin Estimated Onset Date: Unspecified ; Reactions: O/E - a rash, O/E - a rash ; Created By: TONY Cervantes; Reaction Status: Active ; Category: Drug ; Substance: levofloxacin ; Type: Allergy ; Updated By: TONY Cervantes; Reviewed Date: 07/15/2020 11:58 EDT penicillin Estimated Onset Date: Unspecified ; Reactions: O/E - a rash, O/E - a rash ; Created By: Contributor_systemTONY; Reaction Status: Active ; Category: Drug ; Substance: penicillin ; Type: Allergy ; Updated By: Contributor_systemTONY; Reviewed Date: 07/15/2020 11:58 EDT Diagnosis Control ED (As Of: 07/15/2020 11:58:46 EDT) Diagnoses(Active) Chest pain Date: 07/15/2020 ; Diagnosis Type: Reason For Visit ; Confirmation: Complaint of ; Clinical Dx: Chest pain ; Classification: Medical ; Clinical Service: Emergency medicine ; Code: PNED ; Probability: 0 ; Diagnosis Code: [id number] ED Height and Weight Height Source : Stated Height Entry Format : [place] Height, Feet : 5 ft(Converted to: 152 cm, 60 Inch) Height, Inches : 2 Inch(Converted to: 0 ft 2 Inch, 5.08 cm) Clinical Height : 157.48 cm Weight Source, ED : Critical estimated dosing weight Weight Entry Format : [place] Weight, Pounds : 222 lb Clinical Dosing Weight : 100.91 kg Body Surface Area (BSA) : 2 m2 Body Mass Index : 40.7 kg/m2 (>HHI) [place] Body Weight (IBW) : 49.73 kg CARMEN PICKETT RN - 07/15/2020 11:56 EDT Pain Assessment Pain Assessment : Initial assessment Pain Scale Used : 0-10 Scale Location : Chest CARMEN PICKETT RN - 07/15/2020 11:56 EDT Pain Scale Intensity : 4 CARMEN PICKETT RN - 07/15/2020 11:56 EDT Image 4 - Images currently included in the form version of this document have not been included in the text rendition version of the form. documented in this encounter Plan of Treatment Not on file documented as of this encounter Visit Diagnoses Not on filedocumented in this encounter Care Teams Ornament Stitcher Relationship Specialty Start Date End Date José Miguel Verde MD [address] [place] [address] PCP - General Adolescent Medicine 03/07/23 documented as of this encounter
--- OUTSIDE RECORDS SUMMARY | 2025-05-04 12:51 | XMS_ITS | Encounter Summary ---
Author Organization [facility] In iatives Address [address] [place] [address] Care Team Providers Care Supervisor Marble Name Role Phone José Miguel Verde MD Primary Care Provider + [phone] Encounter Details Date Type Department Care Team (Late st Contact Info) Description 07/15/2020 Transcribed Document [facility] [place] [address] [place] [address] ProviderNitin MD [address] [place] [address] Social History Tobacco Use Types Packs/Day Years Used Date Smoking Tobacco: Never Assessed Comments Unknown Sex and Gender Information Value Date Recorded Sex Assigned at Female 05/10/2022 1:38 PM CDT Legal Sex Female 1:38 PM CDT Gender Identity Female 05/10/2022 1:38 PM CDT Sexual Orientation Not on file documented as of this encounter Miscellaneous Notes * Cerner Conversion Note - Ntiin ProviderMD - 07/15/2020 4:41 PM CDT ED Discharge Entered On: 07/15/2020 16:42 EDT Performed On: 07/15/2020 16:41 EDT by IVORY APPIAH RN Discharge Process Patient Disposition : Discharge Personal Belongings With Patient : Yes Patient Education Completed : Yes Teaching Evaluation : Verbalizes understanding IV Discontinued : Yes IVORY APPIAH RN - 07/15/2020 16:41 EDT ED Discharge Discharge To : Home with ambulatory/outpatient follow-up Mode Of Departure : Private vehicle Discharge Instructions Reviewed With, Opportunity For Questions Given : Patient Prescriptions Given to Patient : No IVOYR APPIAH, RN - 07/15/2020 16:41 EDT Electronically signed by Drew [facility] Conversion Inspector Balance Bridge Cerner at 02/26/2023 11:11 PM CDT documented in this encounter Plan of Treatment Not on file documented as of this encounter Visit Diagnoses Not on filedocumented in this encounter Care Teams Supervisor Marble Relationship Specialty Start Date End Date José Miguel Verde MD [address] [place] [address] PCP - General Adolescent Medicine 03/07/23 documented as of this encounter
--- OUTSIDE RECORDS SUMMARY | 2025-05-04 12:51 | XMS_ITS | Encounter Summary ---
Author Organization [facility] In iatives Address [address] [place] [address] Care Team Providers Care Associate Product Manager Name Role Phone José Miguel Verde MD Primary Care Provider + [phone] Encounter Details Date Type Department Care Team (Late st Contact Info) Description 07/15/2020 Transcribed Document [facility] Family Medicine [address] [place] [address] ProviderNitin MD [address] [place], [place] [phone] Social History Tobacco Use Types Packs/Day Years [...] Conversion Note - Historical ProviderMD - 07/15/2020 4:17 PM CDT Electronically signed by Drew [facility] Conversion Pourer Crane Ladle Cerner at 02/26/2023 10:51 PM CDT documented in this encounter Plan of Treatment Not on file documented as of this encounter Visit Diagnoses Not on filedocumented in this encounter Care Teams Associate Product Manager Relationship Specialty Start Date End Date José Miguel Verde MD [address] [place] [address] PCP - General Adolescent Medicine 03/07/23 documented as of this encounter
--- OUTSIDE RECORDS SUMMARY | 2025-05-04 12:51 | XMS_ITS | Encounter Summary ---
Author Organization [facility] In iatives Address [address] [place] [address] Care Team Providers Care Cinder Pitman Name Role Phone José Miguel Verde MD Primary Care Provider + [phone] Encounter Details Date Type Department Care Team (Late st Contact Info) Description 01/08/2019 Transcribed Document [facility] [place] [address] [place] [address] ProviderNitin MD [address], [place] [address] Social History Tobacco Use Types Packs/Day Years [...] Conversion Note - Nitin ProviderMD - 01/08/2019 11:23 PM JUNIOR ACCOUNTING CLERK ED Discharge Entered On: 01/08/2019 23:23 EST Performed On: 01/08/2019 23:23 EST by Nancy Lopez RN Discharge Process Patient Disposition : Discharge Personal Belongings With Patient : Yes Patient Education Completed : Yes Teaching Evaluation : Verbalizes understanding IV Discontinued : Yes Nursing Documentation Completed : Yes Nancy Lopez RN - 01/08/2019 23:23 EST ED Discharge Discharge To : Home with ambulatory/outpatient follow-up Mode Of Departure : Ambulatory Accompanied By : Friend Discharge Instructions Reviewed With, Opportunity For Questions Given : Patient Prescriptions Given to Patient : No Medications Given to Patient : No Nancy Lopez, RN - 01/08/2019 23:23 EST Electronically signed by Drew, [facility] Conversion Director Machine Cerner at 02/26/2023 11:09 PM CDT documented in this encounter Plan of Treatment Not on file documented as of this encounter Visit Diagnoses Not on filedocumented in this encounter Care Teams Cinder Pitman Relationship Specialty Start Date End Date José Miguel Verde MD [address] [place] [address] PCP - General Adolescent Medicine 03/07/23 documented as of this encounter
--- OUTSIDE RECORDS SUMMARY | 2025-05-04 12:51 | XMS_ITS | Encounter Summary ---
Author Organization [facility] In iatives Address [address] [place] [address] Care Team Providers Care Weigher Bulker Name Role Phone José Miguel Verde MD Primary Care Provider + [phone] Encounter Details Date Type Department Care Team (Late st Contact Info) Description 01/08/2019 Transcribed Document [facility] [place] [address] [place] [address] ProviderNitin MD [address] [place], [place] [address] Social History Tobacco Use Types Packs/Day Years [...] Conversion Note - Historical ProviderMD - 01/08/2019 7:04 PM TIGHTENING MACHINE OPERATOR Patient: GINA HECTOR Age: 73 years Sex: Female : 1945 Associated Diagnoses: Atypical chest pain; GERD (gastroesophageal reflux disease); Hypertension Author: BEAR KING ARNP Basic Information Time seen: Date & time 01/08/2019 18:55:00. History source: Patient, friend. Arrival mode: Private vehicle. History limitation: None. Additional information: Chief Complaint from Nursing Triage Note : Chief Complaint 01/08/2019 18:47 EST Chief Complaint Pt presents to the ER with chest pain that started Monday. Pain was left sided that radiates across chest. Burning in nature. Slight nausea noted. Histroy of triple bypass. Dr. preciado bag bleacher. . History of Present Illness The patient presents with chest pain. The onset was 3 days ago. The course/duration of symptoms is fluctuating in intensity. Location: Left anterior chest. Radiating pain: left arm. The character of symptoms is burning. The degree at onset was minimal. The degree at maximum was minimal. The degree at present is none. The exacerbating factor is none. The relieving factor is none. Risk factors consist of coronary artery disease, hypertension, obesity, hyperlipidemia and family history of coronary artery disease. Prior episodes: cardiac and coronary artery disease. Therapy today Aspirin. Associated symptoms: nausea, anxiety, denies shortness of breath, denies vomiting, denies diaphoresis and denies palpitations. Review of Systems Constitutional symptoms: Negative except as documented in HPI. Skin symptoms: Negative except as documented in HPI. Eye symptoms: Negative except as documented in HPI. ENMT symptoms: Negative except as documented in HPI. Respiratory symptoms: Negative except as documented in HPI. Cardiovascular symptoms: Chest pain. Gastrointestinal symptoms: Negative except as documented in HPI. Genitourinary symptoms: Negative except as documented in HPI. Musculoskeletal symptoms: Negative except as documented in HPI. Neurologic symptoms: Negative except as documented in HPI. Psychiatric symptoms: Anxiety. Endocrine symptoms: Negative except as documented in HPI. Health Status Allergies: Allergic Reactions (Selected) Severity Not Documented Ibuprofen- Itching and itching. Levofloxacin- O/e - a rash and o/e - a rash. Penicillin- O/e - a rash and o/e - a rash.. Medications: (Selected) Inpatient Medications Ordered Normal Saline Bolus: 1,000 mL, 1,000 mL/Hr, IV Piggyback, 1-Time Normal Saline Flush: 10 mL, IV Push, 1-Time Pepcid: 20 mg, IV Push, 1-Time Zofran: 4 mg, IV Push, 1-Time, per nurse's notes. Immunizations: Per nurse's notes. Past Medical/ Family/ Social History Medical history Reviewed as documented in chart. Surgical history: No active procedure history items have been selected or recorded., Reviewed as documented in chart. Family history: No family history items have been selected or recorded., Reviewed as documented in chart. Social history: Social & Psychosocial Habits No Data Available , Reviewed as documented in chart. Problem list: No qualifying data available , per nurse's notes. Physical Examination Vital Signs Vital Signs/Vital Measures 01/08/2019 18:47 EST Temperature Source Oral Temperature Mode Fahrenheit Temperature, Fahrenheit 97.4 Deg F Clinical Temperature, C 36.3 Deg C Peripheral Pulse Rate 74 bpm Respiratory Rate 16 Breaths/Min Systolic Blood Pressure 201 mmHg HI Diastolic Blood Pressure 91 mmHg HI Oxygen Saturation 96 % Oxygen Therapy Mode Room air . Measurements 01/08/2019 18:47 EST Height Source Stated Height Entry Format [place] Height/Length, IRAQI (ft) 5 ft Height/Length IRAQI 2 Inch CLINICALHEIGHT 157.48 cm [place] Body Weight 49.73 kg Weight Source, ED Critical estimated dosing weight Weight Entry Format [place] Weight Indian lb 230 lb CLINICALWEIGHT 104.55 kg Body Surface Area (BSA) 2.03 m2 Body Mass Index 42.2 kg/m2 >HHI . Oxygen Saturation 01/08/2019 18:47 EST Oxygen Saturation 96 % . General: Alert, no acute distress. Skin: Warm, dry, pink, intact, no rash, normal for ethnicity. Head: Normocephalic. Neck: Supple. Eye: Normal conjunctiva. Ears, nose, mouth and throat: Oral mucosa moist. Cardiovascular: Regular rate and rhythm, No murmur, Normal peripheral perfusion, Edema: Bilateral, lower extremity, pedal, 1+. Respiratory: Lungs are clear to auscultation, respirations are non-labored, breath sounds are equal. Chest wall: No tenderness, No deformity. Back: Normal range of motion. Musculoskeletal: Normal ROM, normal strength. Gastrointestinal: Soft, Nontender, Non distended, Normal bowel sounds, Obese. Neurological: Alert and oriented to person, place, time, and situation, No focal neurological deficit observed, normal speech observed. Psychiatric: Cooperative, appropriate mood & affect, normal judgment. Medical Decision Making Differential Diagnosis: Myocardial infarction, non-ST elevation myocardial infarction, unstable angina, angina, anxiety, atypical chest pain. Documents reviewed: Emergency department nurses' notes. Results review: Lab results : Lab Results 01/08/2019 22:28 EST Troponin I Ultra <0.015 ng/mL 01/08/2019 19:06 EST Sodium Level 142 mmol/L Potassium Level 3.6 mmol/L Chloride Level 108 mmol/L Carbon Dioxide Level 24 mmol/L Anion Gap 14 Glucose Level 104 mg/dL Blood Urea Nitrogen 19 mg/dL Creatinine Level 1.30 mg/dL HI eGFR 49 mL/min/1.73m2 LOW eGFR NonAfrican 40 mL/min/1.73m2 LOW Bun/Creatinine 14.6 Calcium Level 9.5 mg/dL Protein Total 7.4 Gram/dL Albumin Level 4.5 Gram/dL Globulin 2.9 Gram/dL A/G Ratio 1.6 Bilirubin Total 1.0 mg/dL Alk Phos 56 Units/Liter AST 40 Units/Liter HI ALT 38 Units/Liter Magnesium Level 2.3 mg/dL Troponin I Ultra <0.015 ng/mL ProBNP 729 pg/mL HI WBC 5.8 K/uL RBC 4.60 Million/uL Hgb 14.9 g/dL Hct 44.3 % MCV 96.3 fL HI MCH 32.4 pg HI MCHC 33.6 Gram/dL Platelet Count 137 K/uL LOW MPV 10.8 fL RDW 12.9 % Neut % 71.7 % HI Neut # 4.13 K/uL Lymph % 18.0 % LOW Lymph # 1.04 x10(3)/uL [place] % 9.2 % HI [place] # 0.53 K/uL Eos % 0.5 % Eos # 0.03 x10(3)/uL Baso % 0.3 % Baso # 0.02 x10(3)/uL Slide Review No IG# 0.02 x10(3)/uL IG% 0.30 % PT 11.0 Second(s) INR 1.0 . Chest X-Ray: Time reported 01/08/2019 20:40:00, no acute disease process, interpretation by Emergency Physician, No acute cardiopulmonary or disease processes noted, chest x-ray interpreted per Dr. Brown. Reexamination/ Reevaluation Time: 01/08/2019 20:55:00 . Course: resolved. Pain status: resolved. Notes: Discussed patient with Dr. Brown, reviewed history of present illness, physical exam, lab and imaging. Burning sensation in her chest has improved following Pepcid and Zofran. Patient states she is currently asymptomatic. Waiting on a second troponin level. If the second troponin level is negative patient will be stable for discharge home with her primary care doctor for close follow-up and discussion regarding treatment of reflux. Patient has been provided a prescription for Zantac from her primary care doctor but states it caused her to have diarrhea so patient is reluctant to take this medication. There is been no recent diet changes. Patient will make next available appointment with her primary care doctor and bag bleacher for discussion of recent ER visits. Patient instructed to return to the ER with worsening signs or symptoms or as needed. Patient with verbal understanding and agreeable to plan of care.. Impression and Plan Diagnosis Atypical chest pain - Discharge, Emergency medicine, Medical GERD (gastroesophageal reflux disease) - Discharge, Emergency medicine, Medical Hypertension - Discharge, Emergency medicine, Medical Plan Condition: Improved, Stable. Disposition: Discharged Admit/Transfer/Discharge: Discharge (Order): Start: 01/08/2019 23:07 EST, Discharge to: Home , Patient care transitioned to: Time: 01/08/2019 22:00:00, KEYUR BROWN MD. Patient was given the following educational materials: Gastroesophageal Reflux Disease, Adult, [id number], Food Choices for Gastroesophageal Reflux Disease, Adult, [id number], Nonspecific Chest Pain, [id number]. Follow up with: [facility] Within 2 to 3 days For further assistance with your Primary Care Physician please contact the Patient Resource Center at [phone]. Please follow up with Lester Peace.; MELVIN RASCON Within 2 to 3 days; Return to Emergency Department Within As needed Follow-up as instructed Return if condition worsens. Counseled: Patient, Family, Regarding diagnosis, Regarding diagnostic results, Regarding treatment plan, Patient indicated understanding of instructions. documented in this encounter Plan of Treatment Not on file documented as of this encounter Visit Diagnoses Not on filedocumented in this encounter Care Teams Weigher Bulker Relationship Specialty Start Date End Date José Miguel Verde MD [address] [place] [address] PCP - General Adolescent Medicine 03/07/23 documented as of this encounter
--- OUTSIDE RECORDS SUMMARY | 2025-05-04 12:51 | XMS_ITS | Encounter Summary ---
Author Organization [facility] In iatives Address [address] [place] [address] Care Team Providers Care Junior Systems Engineer Name Role Phone José Miguel Verde MD Primary Care Provider + [phone] Encounter Details Date Type Department Care Team (Late st Contact Info) Description 07/15/2020 Transcribed Document [facility] [place] [address] [place] [address] ProviderNitin MD [address] [place] [address] Social History Tobacco Use Types Packs/Day Years [...] ProviderMD - 07/15/2020 11:47 AM CDT ED Assessment Entered On: 07/15/2020 12:21 EDT Performed On: 07/15/2020 12:20 EDT by IVORY APPIAH RN ED Quick Look Assessment Level of Consciousness : Alert, Awake Orientation : Oriented x 4 IVORY APPIAH RN - 07/15/2020 12:20 EDT ED General-Functional Assess Communication Barrier : None Primary Language : Dominican Any Spiritual/Cultural Needs or Requests : No Currently in Unsafe Situation : No IVORY APPIAH RN - 07/15/2020 12:20 EDT Social Habits Smoking Status : Never (less than 100 in lifetime; none in last 30 days) Smokeless Tobacco Status : Never Desires Tobacco Cessation Calc : 0 IVORY APPIAH RN - 07/15/2020 12:20 EDT Social History (As Of: 07/15/2020 12:21:22 EDT) Cardiovascular ASMT, ED Cardiovascular Assessment WDL : WDL with exceptions Cardiovascular Symptoms : Chest pain at rest, Chest pain with activity Chest Pain : Yes IVORY APPIAH RN - 07/15/2020 12:20 EDT Pulses Grid Radial Pulse, Left : 2+ normal Radial Pulse, Right : 2+ normal IVORY APPIAH RN - 07/15/2020 12:20 EDT Respiratory Respiratory Assessment WDL : WDL IVORY APPIAH RN - 07/15/2020 12:20 EDT Neurologic ASMT, ED Neurologic Assessment WDL : WD Neurological Symptoms : None Level of Consciousness : Alert, Awake Affect/Behavior : Appropriate, Calm, Cooperative Speech : Clear Orientation : Oriented x 4 Pupils Equal, Round, Reactive to Light : Yes IVORY APPIAH RN - 07/15/2020 12:20 EDT Electronically signed by Drew [facility] Conversion Car Seat Upholsterer Cerner at 02/26/2023 11:14 PM CDT documented in this encounter Plan of Treatment Not on file documented as of this encounter Visit Diagnoses Not on filedocumented in this encounter Care Teams Junior Systems Engineer Relationship Specialty Start Date End Date José Miguel Verde MD [address] [place] [address] PCP - General Adolescent Medicine 03/07/23 documented as of this encounter
--- OUTSIDE RECORDS SUMMARY | 2025-05-04 12:51 | XMS_ITS | Encounter Summary ---
Author Organization [facility] In iatives Address [address] [place] [address] Care Team Providers Care Moderate Needs Teacher Name Role Phone José Miguel Verde MD Primary Care Provider + [phone] Encounter Details Date Type Department Care Team (Late st Contact Info) Description 01/08/2019 Transcribed Document [facility] [place] Family Medicine [address] [place] [address] ProviderNitin MD [address] [place] [id number] Social History Tobacco Use Types Packs/Day Years [...] Conversion Note - Historical ProviderMD - 01/08/2019 11:24 PM NETWORK APPLICATIONS SPECIALIST [address] [place] [address] PERSON INFORMATION Name GINA HECTOR YUMIKO Age 73 Years 1945 Sex Female Language Citizen Of [place] PCP MELVIN RASCON MD-INT Marital Status Med Service Emergency Medicine Acct# Arrival 01/08/2019 18:41:00 Visit Reason Chest pain; CHEST PAIN/LEFT ARM PAIN Acuity 3 - Urgent LOS 000 04:43 Depart Date: 01/08/19 11:24 PM Address: [address] [facility] [address] [place] [address] Comment: PROVIDER INFORMATION Provider Role Assigned Unassigned BEAR KING ARNP ED Physician 01/08/2019 18:50:05 Roc Saenz, BLACK ASH BURNER OPERATOR Nurse 01/08/2019 18:59:17 KEYUR BROWN MD ED Physician 01/08/2019 21:12:40 Yemi Carrillo, Rn-Resource ED Nurse 01/08/2019 22:58:38 DIAGNOSIS Atypical chest pain; GERD (gastroesophageal reflux disease); Hypertension PHYS DOC NOTES VITALS INFORMATION Vital Sign Triage Latest Temp Source Oral Oral Temp Mode Fahrenheit Fahrenheit Temp Fahrenheit 97.4 Deg F 97.4 Deg F Temp Celsius 02 Sat 96 % 98 % Respiratory Rate 16 Breaths/Min 23 Breaths/Min Peripheral Pulse Rate 74 bpm 74 bpm Apical Heart Rate 74 bpm 74 bpm Blood Pressure 201 mmHg / 91 mmHg 180 mmHg / 85 mmHg Comment: MEDICAL INFORMATION Allergy Info: levofloxacin; penicillin; ibuprofen Medications: Comment: DISCHARGE INFORMATION Discharge Disposition: Home Discharge Location: PATIENT EDUCATION INFORMATION Instructions: Nonspecific Chest Pain, Ierq-yr-Etxv; Food Choices for Gastroesophageal Reflux Disease, Adult, Yfnb-di-Guhw; Gastroesophageal Reflux Disease, Adult, Idia-ul-Teqj Follow up: With: Address: When: Return to Emergency Department Within As needed Comments: Follow-up as instructed Return if condition worsens With: Address: When: PATIENT RESOURCE CENTER Within 2 to 3 days Comments: For further assistance with your Primary Care Physician please contact the Patient Resource Center at [phone]. Please follow up with Lester Peace. With: Address: When: MELVIN RASCON [address] [place] [address], [address] [place] [phone] Business (1) Within 2 to 3 days Comment: documented in this encounter Plan of Treatment Not on file documented as of this encounter Visit Diagnoses Not on filedocumented in this encounter Care Teams Moderate Needs Teacher Relationship Specialty Start Date End Date José Miguel Verde MD [address] [place] [id number] PCP - General Adolescent Medicine 03/07/23 documented as of this encounter
--- OUTSIDE RECORDS SUMMARY | 2025-05-04 12:51 | XMS_ITS | Encounter Summary ---
Author Organization [facility] In iatives Address [address] [place] [address] Care Team Providers Care Piano Mechanic Apprentice Name Role Phone José Miguel Verde MD Primary Care Provider + [phone] Encounter Details Date Type Department Care Team (Late st Contact Info) Description 07/15/2020 Transcribed Document [facility] [place] Family Medicine [address] [place] [address] ProviderNitin MD [address] [place], [place] [phone] Social History Tobacco Use Types Packs/Day Years [...] Conversion Note - Nitin ProviderMD - 07/15/2020 4:34 PM CDT [facility] [place] [address] GINA HECTOR :1945 Visit Time:07/15/2020 Your [...] do next Follow-Up Appointments Follow Up with JASON WEISS When Within 2 to 3 days Comments Cardiology Call for follow up appointment Where: [address] [place] [address]- Business (1) Follow Up with Follow up with primary care provider When Within 1 to 2 days Comments Take home medications as directed, follow with PCP, return to emergency Department with new or worsening symptoms Follow Up with MELVIN RASCON When Within 2 to 3 days Where: [address] [facility] [address] [place] [address]- Business (1) Allergies ibuprofen (Itching, Itching) levofloxacin (O/E [...] range between ( 0.0 and 7.0 ) [place] #: 0.55 K/uL -- Normal range between ( 0.16 and 1.00 ) [place] #: 0.06 x10(3)/uL -- Normal range between ( 0.00 and 0.80 ) [place] %: 9.3 % -- Normal range between [...] safe for you. General instructions ??? Take dlpg-laf-nmgaxde and prescription medicines only as told by [...] 10/30/2006 Document Revised: 05/02/2019 Document Reviewed: 05/02/2019 [employer] Patient Education ?? 2020 [employer]. Nonspecific Chest Pain, Adult Chest pain can [...] these instructions at home: Medicines ??? Take zqzr-kcu-lbmnkgr and prescription medicines only as told by [...] 08/09/2006 Document Revised: 05/02/2019 Document Reviewed: 05/02/2019 [employer] Patient Education ?? 2020 [employer] Emergency Awareness and Preventative Care STROKE [...] Assistance with quitting is available by contacting 1-020-QPOE-NOW. This is a free resource providing counseling, [...] was given the opportunity to ask questions. Patient/Cargo Station Worker Name: Patient/Cargo Station Worker Signature: Relationship to Patient: Clinician/Hospital Cargo Station Worker Signature: Please Provide a Telephone Number Where You Can Be Reached: Is it Permissible To Leave a Message? Date: Electronically signed by Interface, [facility] Conversion Stevedoring Superintendent Cerner at 02/26/2023 11:06 PM CDT documented in this encounter Plan of Treatment Not on file documented as of this encounter Visit Diagnoses Not on filedocumented in this encounter Care Teams Piano Mechanic Apprentice Relationship Specialty Start Date End Date José Miguel Verde MD [address] [place] [address] PCP - General Adolescent Medicine 03/07/23 documented as of this encounter
--- OUTSIDE RECORDS SUMMARY | 2025-05-04 12:51 | XMS_ITS | Encounter Summary ---
Author Organization [facility] [employer] In iatives Address [address] [place] [address] Care Team Providers Care Scoop Machine Operator Name Role Phone José Miguel Verde MD Primary Care Provider + [phone] Encounter Details Date Type Department Care Team (Late st Contact Info) Description 01/08/2019 Transcribed Document [facility] [place] Family Medicine [address] [place] [address] ProviderNitin MD [address], [place] [phone] Social History Tobacco Use Types Packs/Day Years [...] Conversion Note - Historical ProviderMD - 01/08/2019 6:41 PM COOK PRESSURE ED Triage Entered On: 01/08/2019 18:57 EST Performed On: 01/08/2019 18:47 EST by Catherine Pugh RN ED Triage Across the Room Triage Date/Time : 01/08/2019 18:47 EST Chief Complaint : Pt presents to the ER with chest pain that started Monday. Pain was left sided that radiates across chest. Burning in nature. Slight nausea noted. Histroy of triple bypass. 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 Catherine Pugh, RN - 01/08/2019 18:47 EST DCP GENERIC CODE Tracking Acuity : 3 - Urgent Tracking Group : [facility] ED Catherine Pugh RN - 01/08/2019 18:47 EST Mode of Arrival : Ambulatory Transported to ED by : Walk in To Room Via : Ambulate Accompanied By : Unaccompanied ED Vital Signs : Document Height & Weight : Document ED Allergies : Document ED Reason for Visit : Document Catherine Pugh RN - 01/08/2019 18:47 EST Infectious Disease History Infectious Disease History : None Fever/Chills Last 48 Hours : No Travel To Regions with Travel Advisories : No Travel Outside [place] Within Last 30 Days : No Contact With Traveler to Advisory Region : No Tuberculosis Symptoms : None Catherine Pugh RN - 01/08/2019 18:47 EST Vital Signs ED Temperature Source : Oral Temperature Mode : Fahrenheit Temperature, Fahrenheit : 97.4 Deg F Clinical Temperature, C : 36.3 Deg C Oxygen Therapy Mode : Room air Peripheral Pulse Rate : 74 bpm Respiratory Rate : 16 Breaths/Min Systolic Blood Pressure : 201 mmHg (HI) Diastolic Blood Pressure : 91 mmHg (HI) Oxygen Saturation : 96 % Catherine Pugh RN - 01/08/2019 18:47 EST Allergy (As Of: 01/08/2019 18:57:13 EST) Allergies (Active) ibuprofen Estimated Onset Date: Unspecified ; Reactions: Itching, Itching ; Created By: TONY Cervantes; Reaction Status: Active ; Category: Drug ; Substance: ibuprofen ; Type: Allergy ; Updated By: TONY Cervantes; Reviewed Date: 01/08/2019 18:48 EST levofloxacin Estimated Onset Date: Unspecified ; Reactions: O/E - a rash, O/E - a rash ; Created By: TONY Cervantes; Reaction Status: Active ; Category: Drug ; Substance: levofloxacin ; Type: Allergy ; Updated By: TONY Cervantes; Reviewed Date: 01/08/2019 18:48 EST penicillin Estimated Onset Date: Unspecified ; Reactions: O/E - a rash, O/E - a rash ; Created By: TONY Cervantes; Reaction Status: Active ; Category: Drug ; Substance: penicillin ; Type: Allergy ; Updated By: TONY Cervantes; Reviewed Date: 01/08/2019 18:48 EST Diagnosis Control ED (As Of: 01/08/2019 18:57:13 EST) Diagnoses(Active) Chest pain Date: 01/08/2019 ; Diagnosis Type: Reason For Visit ; Confirmation: Complaint of ; Clinical Dx: Chest pain ; Classification: Medical ; Clinical Service: Emergency medicine ; Code: PNED ; Probability: 0 ; Diagnosis Code: [id number] ED Height and Weight Height Source : Stated Height Entry Format : [place] Height, Feet : 5 ft(Converted to: 152 cm, 60 Inch) Height, Inches : 2 Inch(Converted to: 0 ft 2 Inch, 5.08 cm) Clinical Height : 157.48 cm Weight Source, ED : Critical estimated dosing weight Weight Entry Format : [place] Weight, Pounds : 230 lb Clinical Dosing Weight : 104.55 kg Body Surface Area (BSA) : 2.03 m2 Body Mass Index : 42.2 kg/m2 (>HHI) [place] Body Weight (IBW) : 49.73 kg Catherine Pugh RN - 01/08/2019 18:47 EST documented in this encounter Plan of Treatment Not on file documented as of this encounter Visit Diagnoses Not on filedocumented in this encounter Care Teams Scoop Machine Operator Relationship Specialty Start Date End Date José Miguel Verde MD [address] [place] [address] PCP - General Adolescent Medicine 03/07/23 documented as of this encounter
--- NOTE | 2025-05-04 12:57 | CT_ITS ---
PROCEDURE INFORMATION: Exam: CT Head Without Contrast Exam date and time: 05/04/2025 1:21 PM Age: 79 years old Clinical indication: Other: Tinnitus TECHNIQUE: Imaging protocol: Computed tomography of the head without contrast. Radiation optimization: All CT scans at this facility use at least one of these dose optimization techniques: automated exposure control; mA and/or kV adjustment per patient size (includes targeted exams where dose is matched to clinical indication); or iterative reconstruction. COMPARISON: No relevant prior studies available. FINDINGS: Brain: No acute intracranial hemorrhage.. There is moderate diffuse heterogeneity of the white matter attenuation, consistent with chronic white matter ischemic changes. Moderate cerebral atrophy Cerebral ventricles: No ventriculomegaly. Paranasal sinuses: Visualized sinuses are unremarkable. No fluid levels. Mastoid air cells: Visualized mastoid air cells are well aerated. Bones: Degenerative changes at the temporomandibular joints. No acute fracture. Soft tissues: Unremarkable. IMPRESSION: No acute intracranial hemorrhage..
--- NOTE | 2025-05-04 13:22 | PC.NURSE ---
pt to the restroom for a urine sample
[2025-05-04 13:52] VITALS: BP 132/60; PULSE 64; RESP 18; O2SAT 99
[2025-05-04 14:00] VITALS: BP 144/75; PULSE 57; RESP 16; O2SAT 99
[2025-05-04 15:03] VITALS: BP 150/80; PULSE 62; RESP 18; TEMP 36.8; O2SAT 97
== END 2025-05-04 15:04 | disposition home or self-care (01) ==
PROVIDERS: Emergency Provider Student in an Organized Health Care Education/Training Program; PCP Internal Medicine Adolescent Medicine
DX: H93.13 Tinnitus, bilateral (principal); R09.81 Nasal congestion
CPT/HCPCS: 70450; 99284

== ENCOUNTER 2025-05-05 11:22 | Emergency (ER) | payer MEDICARE, BC, SELFPAY ==
--- OUTSIDE RECORDS SUMMARY | 2025-05-05 11:50 | XMS_ITS | Encounter Summary ---
Author Organization [facility] In iatives Address [address] [place] [address] Care Team Providers Care Drug Safety Specialist Name Role Phone José Miguel Verde MD Primary Care Provider + [phone] Encounter Details Date Type Department Care Team (Late st Contact Info) Description 07/15/2020 Transcribed Document [facility] [place] Family Medicine [address] [place] [address] ProviderNitin MD [address], [place] [phone] Social History Tobacco Use Types Packs/Day Years [...] action required x1 Electronically signed by Drew [facility] Conversion Core Java Software Engineer Cerner at 02/26/2023 11:08 PM CDT documented in this encounter Plan of Treatment Not on file documented as of this encounter Visit Diagnoses Not on filedocumented in this encounter Care Teams Drug Safety Specialist Relationship Specialty Start Date End Date José Miguel Verde MD [address] [place] [address] PCP - General Adolescent Medicine 03/07/23 documented as of this encounter
--- OUTSIDE RECORDS SUMMARY | 2025-05-05 11:50 | XMS_ITS | Encounter Summary ---
Author Organization [facility] In iatives Address [address] [place] [address] Care Team Providers Care Clerical Assigner Name Role Phone José Miguel Verde MD Primary Care Provider + [phone] Encounter Details Date Type Department Care Team (Late st Contact Info) Description 07/15/2020 Transcribed Document [facility] [place] Family [place] [address] [place] [address] ProviderNitin MD [address], [place] [phone] Social History Tobacco Use Types Packs/Day Years [...] On: 07/15/2020 11:56 EDT by CARMEN PICKETT, CONFERENCE CENTER COORDINATOR Triage Across the Room Chief Complaint : pt c/o CP for 2 days, hurting in left arm, sharp 04/22, took NTG yesterday went away, started today took NTH with xanax and now a 4/10, no NVD, Triage Date/Time : 07/15/2020 11:56 EDT CARMEN PICKETT RN - 07/15/2020 11:56 EDT DCP GENERIC CODE Tracking Acuity : 2 - Emergent Tracking Group : [facility] ED CARMEN PICKETT RN - 07/15/2020 11:56 EDT Mode of Arrival : Ambulatory Transported to ED by : Private vehicle To Room Via : Wheelchair Accompanied By : Unaccompanied ED Vital Signs : Document Height & Weight : Document ED Allergies : Document ED Reason for Visit : Document Tetanus Immunization : Unknown Bank Examiner Needed : No CARMEN PICKETT RN - [...] PNED ; Probability: 0 ; Diagnosis Code: [id number] ED Height and Weight Height Source : Stated Height Entry Format : [place] Height, Feet : 5 ft(Converted to: 152 cm, 60 Inch) Height, Inches : 2 Inch(Converted to: 0 ft 2 Inch, 5.08 cm) Clinical Height : 157.48 cm Weight Source, ED : Critical estimated dosing weight Weight Entry Format : [place] Weight, Pounds : 222 lb Clinical Dosing Weight : 100.91 kg Body Surface Area (BSA) : 2 m2 Body Mass Index : 40.7 kg/m2 (>HHI) [place] Body Weight (IBW) : 49.73 kg CARMEN [...] on filedocumented in this encounter Care Teams Clerical Assigner Relationship Specialty Start Date End Date José Miguel Verde MD [address] [place] [address] PCP - General Adolescent Medicine 03/07/23 documented as of this encounter
--- OUTSIDE RECORDS SUMMARY | 2025-05-05 11:50 | XMS_ITS | Encounter Summary ---
Author Organization [facility] [employer] In iatives Address [address] [place] [address] Care Team Providers Care Dry Pan Charger Name Role Phone José Miguel Verde MD Primary Care Provider + [phone] Encounter Details Date Type Department Care Team (Late st Contact Info) Description 01/08/2019 Transcribed Document [facility] [place] Family Medicine [address] [place] [address] ProviderNitin MD [address] [place], [place] [phone] Social History Tobacco Use Types Packs/Day Years [...] - Historical ProviderMD - 01/08/2019 6:41 PM HYDROMETER TESTER ED Triage Entered On: 01/08/2019 18:57 EST Performed On: 01/08/2019 18:47 EST by Catherine Pugh RN ED Triage Across the Room Triage Date/Time : 01/08/2019 18:47 EST Chief Complaint : Pt presents to the ER with chest pain that started Monday. Pain was left sided that radiates across chest. Burning in nature. Slight nausea noted. Histroy of triple bypass. 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 Catherine Pugh, RN - 01/08/2019 18:47 EST DCP GENERIC CODE Tracking Acuity : 3 - Urgent Tracking Group : [facility] ED Catherine Pugh RN - 01/08/2019 18:47 [...] PNED ; Probability: 0 ; Diagnosis Code: [id number] ED Height and Weight Height Source : Stated Height Entry Format : [place] Height, Feet : 5 ft(Converted to: 152 cm, 60 Inch) Height, Inches : 2 Inch(Converted to: 0 ft 2 Inch, 5.08 cm) Clinical Height : 157.48 cm Weight Source, ED : Critical estimated dosing weight Weight Entry Format : [place] Weight, Pounds : 230 lb Clinical Dosing Weight : 104.55 kg Body Surface Area (BSA) : 2.03 m2 Body Mass Index : 42.2 kg/m2 (>HHI) [place] Body Weight (IBW) : 49.73 kg Catherine Pugh RN - 01/08/2019 18:47 EST documented in this encounter Plan of Treatment Not on file documented as of this encounter Visit Diagnoses Not on filedocumented in this encounter Care Teams Dry Pan Charger Relationship Specialty Start Date End Date José Miguel Verde MD [address] [place] [address] PCP - General Adolescent Medicine 03/07/23 documented as of this encounter
--- OUTSIDE RECORDS SUMMARY | 2025-05-05 11:50 | XMS_ITS | Encounter Summary ---
Author Organization [facility] In iatives Address [address] [place] [address] Care Team Providers Care Client Administrator Name Role Phone José Miguel Verde MD Primary Care Provider + [phone] Encounter Details Date Type Department Care Team (Late st Contact Info) Description 07/15/2020 Transcribed Document [facility] [place] Family Medicine [address] [place] [address] ProviderNitin MD [address], [place] [phone] Social History Tobacco Use Types Packs/Day Years [...] Nitin ProviderMD - 07/15/2020 4:34 PM CDT [facility] [place] [address] GINA HECTOR :1945 Visit Time:07/15/2020 Your [...] appointment Where: [address] [place] [address]- Business (1) Follow Up with Follow up with primary care provider When Within 1 to 2 days Comments Take home medications as directed, follow with PCP, return to emergency Department with new or worsening symptoms Follow Up with MELVIN RASCON When Within 2 to 3 days Where: [address] [facility] [address] [place] [address]- Business (1) Allergies ibuprofen (Itching, Itching) [...] range between ( 0.0 and 7.0 ) [place] #: 0.55 K/uL -- Normal range between ( 0.16 and 1.00 ) Eos #: 0.06 x10(3)/uL -- Normal range between ( 0.00 and 0.80 ) [place] %: 9.3 % -- Normal range between [...] safe for you. General instructions ??? Take lhhq-obd-elqgtaq and prescription medicines only as told by [...] 10/30/2006 Document Revised: 05/02/2019 Document Reviewed: 05/02/2019 [employer] Patient Education ?? 2020 [employer]. Nonspecific Chest Pain, Adult Chest pain can [...] these instructions at home: Medicines ??? Take umjn-cbd-jxguwot and prescription medicines only as told by [...] 08/09/2006 Document Revised: 05/02/2019 Document Reviewed: 05/02/2019 [employer] Patient Education ?? 2020 [employer] Emergency Awareness and Preventative Care STROKE [...] Assistance with quitting is available by contacting 3-537-SLSE-NOW. This is a free resource providing counseling, [...] was given the opportunity to ask questions. Patient/Face Cleaner Name: Patient/Face Cleaner Signature: Relationship to Patient: Clinician/Hospital Face Cleaner Signature: Please Provide a Telephone Number Where You Can Be Reached: Is it Permissible To Leave a Message? Date: Electronically signed by Interface, [facility] Conversion Plastic Boat Patcher Cerner at 02/26/2023 11:06 PM CDT documented in this encounter Plan of Treatment Not on file documented as of this encounter Visit Diagnoses Not on filedocumented in this encounter Care Teams Client Administrator Relationship Specialty Start Date End Date José Miguel Verde MD [address] [place] [address] PCP - General Adolescent Medicine 03/07/23 documented as of this encounter
--- OUTSIDE RECORDS SUMMARY | 2025-05-05 11:50 | XMS_ITS | Encounter Summary ---
Author Organization [employer] In iatives Address [address] [place] [address] Care Team Providers Care Salad Maker Name Role Phone José Miguel Verde MD Primary Care Provider + [phone] Encounter Details Date Type Department Care Team (Late st Contact Info) Description 07/15/2020 Transcribed Document [facility] [place] Family Medicine [address] [place] [address] ProviderNitin MD [address] [place], [place] [id number] Social History Tobacco Use Types Packs/Day Years [...] Source Stated Height Entry Format Beryl Height/Length, SOMALI (ft) 5 ft Height/Length SOMALI 2 Inch CLINICALHEIGHT 157.48 cm [place] Body Weight 49.73 kg Weight Source, ED Critical estimated dosing weight Weight Entry Format Davis Weight Gambian lb 222 lb CLINICALWEIGHT 100.91 kg Body [...] Triage: ED C-SSRS: ED Clinical Reconciliation: ED director river restoration: EKG: Extra Blue Tube: Extra Gold Tube: Troponin I Ultra: Troponin I Ultra: . compliance monitor: Initial EKG shows normal sinus rhythm with [...] % LOW Lymph # 0.97 x10(3)/uL LOW [place] % 9.3 % HI [place] # 0.55 K/uL Eos % 1.0 % Eos # 0.06 x10(3)/uL Baso % 0.5 % Baso # 0.03 x10(3)/uL Slide Review No IG# 0.02 x10(3)/uL IG% 0.30 % . Radiology results: Radiology Results (Last 48 hours) [id number] -- 07/15/2020 11:47 CR Chest 1 Vw [...] on filedocumented in this encounter Care Teams Salad Maker Relationship Specialty Start Date End Date José Miguel Verde MD [address] [place] [address] PCP - General Adolescent Medicine 03/07/23 documented as of this encounter
--- OUTSIDE RECORDS SUMMARY | 2025-05-05 11:50 | XMS_ITS | Encounter Summary ---
Author Organization [facility] In iatives Address [address] [place] [address] Care Team Providers Care Farm Equipment Technician Name Role Phone José Miguel Verde MD Primary Care Provider + [phone] Encounter Details Date Type Department Care Team (Late st Contact Info) Description 07/15/2020 Transcribed Document [facility] [place] [address] [place] [address] ProviderNitin MD [address] [place], [place] [id number] Social History Tobacco Use Types Packs/Day Years [...] 4:17 PM CDT Electronically signed by Drew [facility] Conversion Licensed Land Surveyor Cerner at 02/26/2023 10:51 PM CDT documented in this encounter Plan of Treatment Not on file documented as of this encounter Visit Diagnoses Not on filedocumented in this encounter Care Teams Farm Equipment Technician Relationship Specialty Start Date End Date José Miguel Verde MD [address] [place] [address] PCP - General Adolescent Medicine 03/07/23 documented as of this encounter
--- OUTSIDE RECORDS SUMMARY | 2025-05-05 11:50 | XMS_ITS | Encounter Summary ---
Author Organization [facility] In iatives Address [address] [place] [address] Care Team Providers Care Pasteurizer Name Role Phone José Miguel Verde MD Primary Care Provider + [phone] Encounter Details Date Type Department Care Team (Late st Contact Info) Description 01/08/2019 Transcribed Document [facility] [place] Family Medicine [address] [place] [address] ProviderNitin MD [address] [place] [address] Social History Tobacco Use Types [...] - Nitin ProviderMD - 01/08/2019 11:24 PM OIL FIELD WORKER [address] [place] [address] Patient Information Name: GINA HECTOR Age: [...] please contact the Patient Resource Center at [phone]. Please follow up with Lester Peace. With: Address: When: MELVIN KARINELENITA [address] [facility], [address] [place] [phone] Business (1) Within 2 to 3 days [...] you start to feel better. ??? Take vreg-bdy-ftyqnem and prescription medicines only as told by [...] 04/17/2009 Document Revised: 07/24/2017 Document Reviewed: 07/24/2017 ElsePaixie[employer] Interactive Patient Education ? 2017 Elsevier Inc. [...] VegetablesTomatoes. Tomato juice. Tomato and spaghetti sauce. [place] peppers. Onion and garlic. Horseradish. FruitsOranges, grapefruit, [...] spearmint. Fats and OilsHigh-fat foods. This includes Gambian fries and potato chips. OtherVinegar. Strong spices. [...] 04/30/2013 Document Revised: 04/06/2017 Document Reviewed: 09/03/2014 ElsePaixie.net Interactive Patient Education ? 2017 [employer] Inc. Gastroesophageal Reflux Disease, Adult Introduction Normally, [...] vinegar, hot sauces, and BBQ sauce. ? [place] fruit juices and citrus fruits, such as oranges, olga, and limes. ? Tomato-based foods, such as red sauce, chili, salsa, and pizza with red sauce. ? Fried and fatty foods, such as donuts, lithuanian fries, potato chips, and high-fat dressings. ? [...] any changes in your symptoms. ??? Take kfar-zya-vcplsfj and prescription medicines only as told by [...] range between ( 0.0 and 7.0 ) Bennett #: 0.53 K/uL -- Normal range between ( 0.16 and 1.00 ) Eos #: 0.03 x10(3)/uL -- Normal range between ( 0.00 and 0.80 ) Bennett %: 9.2 % -- Normal range between [...] that HECTOR GINA CALDERON was seen at [facility] Department on ,01/08/2019 23:24:10. This is [...] along the way. As a healthcare provider, [facility] recommends that you stop smoking. Assistance with quitting is available by contacting 4-265-ASPG-NOW. This is a free resource providing counseling, [...] Electronic Communications Privacy Act 18 U.S.C. ???Sections 2273-0149,?? and contain information intended for the specified [...] for the My [facility] patient portal, which gives you 05/06 access to your medical information ??? including these discharge instructions ??? using your computer, smartphone, or tablet. Just go to [employer] to get started. Questions? Call . Acknowledgment [...] Instructions: Emergency Physician: Electronically signed by Drew, [facility] Conversion Market Intelligence Consultant Cerner at 02/26/2023 11:12 PM CDT documented in this encounter Plan of Treatment Not on file documented as of this encounter Visit Diagnoses Not on filedocumented in this encounter Care Teams Pasteurizer Relationship Specialty Start Date End Date José Miguel Verde MD [address] [place] [address] PCP - General Adolescent Medicine 03/07/23 documented as of this encounter
--- OUTSIDE RECORDS SUMMARY | 2025-05-05 11:50 | XMS_ITS | Clinical Summary ---
Author Organization [employer] Address [address] [place] [address] Care Team Providers Care Tight Cooper Name Role Phone José Miguel Verde MD Primary Care Provider + [phone] Allergies Active Allergy Reactions Criticality Noted Date [...] by mouth in the morning. Active pancrelipase, Eak-Jrtf-Lyts, (CREON) 36,000-114,000 - 180,000 unit CpDR capsule [...] place to sleep or slept in a longterm (including now)? No 03/07/2023 Interpersonal Safety Answer [...] Date Hamilton rded Speak language other than Yemeni at home Not on file 12/01/2023 Want [...] Pneumococcal 50+ years Completed 01/04/2018, [address] [place] [place] [id number] MEDICARE PART A B [facility] Advance Directives For more information, please contact: [phone] * Full Code (Latest Code Status on File) Date Activated Date Inactivated Comments 03/10/2023 5:00 PM 03/11/2023 12:05 PM * Full Code Date Activated Date Inactivated Comments 03/07/2023 2:51 PM 03/10/2023 5:00 PM Care Teams Tight Cooper Relationship Specialty Start Date End Date José Miguel Verde MD [address] [place] [address] PCP - General Adolescent Medicine 03/07/23
--- OUTSIDE RECORDS SUMMARY | 2025-05-05 11:50 | XMS_ITS | Referral Summary ---
Author Organization [employer] In [employer] Address [address] [address] Care Team Providers Care District Associate Judge Name Role Phone José Miguel Verde MD Primary Care Provider + [phone] Allergies Active Allergy Reactions Criticality Noted Date [...] by mouth in the morning. Active pancrelipase, Bbb-Rrbm-Fwhn, (CREON) 36,000-114,000 - 180,000 unit CpDR capsule [...] place to sleep or slept in a intermediate (including now)? No 03/07/2023 Interpersonal Safety Answer [...] Date Hamilton rded Speak language other than Tuvaluan at home Not on file 12/01/2023 Want [...] on file Insurance MEDICARE PART A B [facility] Advance Directives For more information, please contact: [phone] * Full Code (Latest Code Status on File) Date Activated Date Inactivated Comments 03/10/2023 5:00 PM 03/11/2023 12:05 PM * Full Code Date Activated Date Inactivated Comments 03/07/2023 2:51 PM 03/10/2023 5:00 PM Care Teams District Associate Judge Relationship Specialty Start Date End Date José Miguel Verde MD [address] [place] [address] PCP - General Adolescent Medicine 03/07/23
--- OUTSIDE RECORDS SUMMARY | 2025-05-05 11:50 | XMS_ITS | Encounter Summary ---
Author Organization [facility] In iatives Address [address] [place] [address] Care Team Providers Care Gear Cutter Name Role Phone José Miguel Verde MD Primary Care Provider + [phone] Encounter Details Date Type Department Care Team (Late st Contact Info) Description 07/15/2020 Transcribed Document [facility] Family Medicine [address] [place] [address] ProviderNitin MD [address] [place] [address] Social History Tobacco Use Types Packs/Day Years [...] Communication Barrier : None Primary Language : Samoan Any Spiritual/Cultural Needs or Requests : No [...] 07/15/2020 12:20 EDT Electronically signed by Drew [facility] Conversion Telecommunications Field Engineer Cerner at 02/26/2023 11:14 PM CDT documented in this encounter Plan of Treatment Not on file documented as of this encounter Visit Diagnoses Not on filedocumented in this encounter Care Teams Gear Cutter Relationship Specialty Start Date End Date José Miguel Verde MD [address] [place] [address] PCP - General Adolescent Medicine 03/07/23 documented as of this encounter
--- OUTSIDE RECORDS SUMMARY | 2025-05-05 11:50 | XMS_ITS | Encounter Summary ---
Author Organization [facility] In iatives Address [address] [place] [address] Care Team Providers Care Field Applications Specialist Name Role Phone José Miguel Verde MD Primary Care Provider + [phone] Encounter Details Date Type Department Care Team (Late st Contact Info) Description 07/15/2020 Transcribed Document [facility] [place] [address] [place] [address] ProviderNitin MD [address] [place], [place] [id number] Social History Tobacco Use Types Packs/Day Years [...] Nitin ProviderMD - 07/15/2020 4:16 PM CDT [facility] [place] [address] GINA HECTOR :1945 Visit Time:07/15/2020 Your [...] When Within 2 to 3 days Where: [address] [place] [address] [facility] (1) Allergies ibuprofen (Itching, Itching) levofloxacin (O/E [...] range between ( 0.0 and 7.0 ) [place] #: 0.55 K/uL -- Normal range between ( 0.16 and 1.00 ) Eos #: 0.06 x10(3)/uL -- Normal range between ( 0.00 and 0.80 ) [place] %: 9.3 % -- Normal range between [...] safe for you. General instructions ??? Take ibxz-ene-eyotggc and prescription medicines only as told by [...] 10/30/2006 Document Revised: 05/02/2019 Document Reviewed: 05/02/2019 [employer] Patient Education ?? 2020 PerfectHitch. Nonspecific Chest Pain, Adult Chest pain can [...] these instructions at home: Medicines ??? Take xkom-ihe-mecjlez and prescription medicines only as told by [...] 08/09/2006 Document Revised: 05/02/2019 Document Reviewed: 05/02/2019 [employer] Patient Education ?? 2020 [employer] Inc. Emergency Awareness and Preventative Care STROKE [...] Assistance with quitting is available by contacting 3-247-EPRE-NOW. This is a free resource providing counseling, [...] was given the opportunity to ask questions. Patient/Digital Photographic Printer Name: Patient/Digital Photographic Printer Signature: Relationship to Patient: Clinician/Hospital Digital Photographic Printer Signature: Please Provide a Telephone Number Where You Can Be Reached: Is it Permissible To Leave a Message? Date: documented in this encounter Plan of Treatment Not on file documented as of this encounter Visit Diagnoses Not on filedocumented in this encounter Care Teams Field Applications Specialist Relationship Specialty Start Date End Date José Miguel Verde MD [address] [place] [address] PCP - General Adolescent Medicine 03/07/23 documented as of this encounter
--- OUTSIDE RECORDS SUMMARY | 2025-05-05 11:50 | XMS_ITS | Encounter Summary ---
Author Organization [facility] [employer] In iatives Address [address] [place] [address] Care Team Providers Care Comprehensive Advisor Name Role Phone José Miguel Verde MD Primary Care Provider + [phone] Encounter Details Date Type Department Care Team (Late st Contact Info) Description 01/08/2019 Transcribed Document [facility] [place] Family Medicine [address] [place] [address] ProviderNitin MD [address] [place] [address] Social History Tobacco Use Types [...] - Historical ProviderMD - 01/08/2019 11:21 PM POWDER MILL OPERATOR Electronically signed by [facility] Conversion Hemp Fiber Taker Off Cerner at 02/26/2023 11:12 PM CDT documented in this encounter Plan of Treatment Not on file documented as of this encounter Visit Diagnoses Not on filedocumented in this encounter Care Teams Comprehensive Advisor Relationship Specialty Start Date End Date José Miguel Verde MD [address] [place] [address] PCP - General Adolescent Medicine 03/07/23 documented as of this encounter
--- OUTSIDE RECORDS SUMMARY | 2025-05-05 11:50 | XMS_ITS | Encounter Summary ---
Author Organization [facility] In iatives Address [address] [place] [address] Care Team Providers Care Rfid Strategist Name Role Phone José Miguel Verde MD Primary Care Provider + [phone] Encounter Details Date Type Department Care Team (Late st Contact Info) Description 01/08/2019 Transcribed Document [facility] [place] [address] [place] [address] ProviderNitin MD [address] [place], [place] [id number] Social History Tobacco Use Types Packs/Day Years [...] - Nitin ProviderMD - 01/08/2019 6:41 PM ALMOND ROASTER ED Assessment Entered On: 01/08/2019 19:12 EST Performed On: 01/08/2019 19:11 EST by Roc Saenz RN ED Quick Look Assessment Level of Consciousness : Alert, Awake Affect/Behavior : Appropriate, Calm Orientation : Oriented x 4 Roc Saenz RN - 01/08/2019 19:11 EST ED General-Functional Assess Information Obtained From : Patient Communication Barrier : None Primary Language : Belgian Any Spiritual/Cultural Needs or Requests : No [...] Saenz RN - 01/08/2019 19:11 EST] ) Roc Saenz RN - 01/08/2019 19:11 EST Respiratory [...] Roc Guerrero RN - 01/08/2019 19:11 EST documented in this encounter Plan of Treatment Not on file documented as of this encounter Visit Diagnoses Not on filedocumented in this encounter Care Teams Rfid Strategist Relationship Specialty Start Date End Date José Miguel Verde MD [address] [place] [address] PCP - General Adolescent Medicine 03/07/23 documented as of this encounter
--- OUTSIDE RECORDS SUMMARY | 2025-05-05 11:50 | XMS_ITS | Encounter Summary ---
Author Organization [facility] [employer] In iatives Address [address] [place] [address] Care Team Providers Care Gig Tender Name Role Phone José Miguel Verde MD Primary Care Provider + [phone] Encounter Details Date Type Department Care Team (Late st Contact Info) Description 07/15/2020 Transcribed Document [facility] [place] Family Medicine [address] [place] [address] ProviderNitin MD [address] [place] [address] Social History Tobacco Use Types Packs/Day Years [...] Conversion Note - Nitin ProviderMD - 07/15/2020 4:41 PM CDT ED [...] Patient Prescriptions Given to Patient : No IVORY APPIAH, RN - 07/15/2020 16:41 EDT Electronically signed by Drew [facility] Conversion Director Of Cardiopulmonary Services Cerner at 02/26/2023 11:11 PM CDT documented in this encounter Plan of Treatment Not on file documented as of this encounter Visit Diagnoses Not on filedocumented in this encounter Care Teams Gig Tender Relationship Specialty Start Date End Date José Miguel Verde MD [address] [place] [address] PCP - General Adolescent Medicine 03/07/23 documented as of this encounter
--- OUTSIDE RECORDS SUMMARY | 2025-05-05 11:50 | XMS_ITS | Encounter Summary ---
Author Organization [facility] [email or web address] In iatives Address [address] [place] [address] Care Team Providers Care Geomagnetist Name Role Phone José Miguel Verde MD Primary Care Provider + [phone] Encounter Details Date Type Department Care Team (Late st Contact Info) Description 01/08/2019 Transcribed Document [facility] Family Medicine [address] [place] [address] ProviderNitin MD [address] [place], [place] [address] Social History Tobacco Use Types Packs/Day Years [...] - Historical ProviderMD - 01/08/2019 7:04 PM AWARD MACHINE OPERATOR Patient: GINA HECTOR Age: 73 [...] noted. Histroy of triple bypass. Dr. preciado tax services manager. . History of Present Illness The patient [...] EST Height Source Stated Height Entry Format Grant Height/Length, JAPANESE (ft) 5 ft Height/Length JAPANESE 2 Inch CLINICALHEIGHT 157.48 cm Adrian Body Weight 49.73 kg Weight Source, ED Critical estimated dosing weight Weight Entry Format Grant Weight Luxembourger lb 230 lb CLINICALWEIGHT 104.55 kg Body [...] 18.0 % LOW Lymph # 1.04 x10(3)/uL [place] % 9.2 % HI [place] # 0.53 K/uL Eos % 0.5 % [...] appointment with her primary care doctor and tax services manager for discussion of recent ER visits. Patient [...] following educational materials: Gastroesophageal Reflux Disease, Adult, Ksls-qm-Qqto, Food Choices for Gastroesophageal Reflux Disease, Adult, Lrlq-si-Thbk, Nonspecific Chest Pain, Pqgg-uz-Axkb. Follow up with: [facility] Within 2 to 3 days For further assistance with your Primary Care Physician please contact the Patient Resource Center at [phone]. Please follow up with Lester Peace.; MELVIN RASCON Within 2 to 3 days; Return to Emergency Department Within As needed Follow-up as instructed Return if condition worsens. Counseled: Patient, Family, Regarding diagnosis, Regarding diagnostic results, Regarding treatment plan, Patient indicated understanding of instructions. Electronically signed by Sarah Russell Conversion Distribution Center Associate Cerner at 02/26/2023 11:07 PM CDT documented in this encounter Plan of Treatment Not on file documented as of this encounter Visit Diagnoses Not on filedocumented in this encounter Care Teams Geomagnetist Relationship Specialty Start Date End Date José Miguel Verde MD [address] [place] [address] PCP - General Adolescent Medicine 03/07/23 documented as of this encounter
--- OUTSIDE RECORDS SUMMARY | 2025-05-05 11:50 | XMS_ITS | Encounter Summary ---
Author Organization [facility] [employer] Address [address] [place] [address] Care Team Providers Care Comb Setter Name Role Phone José Miguel Verde MD Primary Care Provider + [phone] Encounter Details Date Type Department Care Team (Late st Contact Info) Description 01/09/2019 Transcribed Document [facility] [place] [address] [place] [address] ProviderNitin MD [address] [place], [place] [address] Social History Tobacco Use Types Packs/Day Years [...] - Historical ProviderMD - 01/09/2019 8:32 AM MECHANICAL ENGINEERING DRAFTSPERSON CR Chest 1 Vw Portable Ordered: 01/08/2019 Modified Reason for Exam: chest pain 01/09/2019 07:59 01/09/2019 08:32 (ЕЛЕНА LINDSEY) No further action required documented in this encounter Plan of Treatment Not on file documented as of this encounter Visit Diagnoses Not on filedocumented in this encounter Care Teams Comb Setter Relationship Specialty Start Date End Date José Miguel Verde MD [address] [place] [address] PCP - General Adolescent Medicine 03/07/23 documented as of this encounter
--- OUTSIDE RECORDS SUMMARY | 2025-05-05 11:50 | XMS_ITS | Encounter Summary ---
Author Organization [facility] In [employer]atives Address [address] [place] [address] Care Team Providers Care Supervisor Pleating Name Role Phone José Miguel Verde MD Primary Care Provider + [phone] Encounter Details Date Type Department Care Team (Late st Contact Info) Description 01/08/2019 Transcribed Document [facility] [place] Family Medicine [address] [place] [address] ProviderNitin MD [address] [place], [place] [id number] Social History Tobacco Use Types Packs/Day Years [...] - Historical ProviderMD - 01/08/2019 11:24 PM HUMANITIES PROFESSOR [address] [place] [address] PERSON INFORMATION Name GINA HECTOR YUMIKO Age 73 Years 1945 Sex Female Language Kenyan PCP MELVIN RASCON MD-INT Marital Status Med Service Emergency Medicine Acct# Arrival 01/08/2019 18:41:00 Visit Reason Chest pain; CHEST PAIN/LEFT ARM PAIN Acuity 3 - Urgent LOS 000 04:43 Depart Date: 01/08/19 11:24 PM Address: [address] [facility] [address] [place] [address] Comment: PROVIDER INFORMATION Provider Role Assigned Unassigned BEAR KING ARNP ED Physician 01/08/2019 18:50:05 Roc Saenz, FULL STACK ENGINEER Nurse 01/08/2019 18:59:17 KEYUR BROWN MD ED [...] PATIENT EDUCATION INFORMATION Instructions: Nonspecific Chest Pain, Zphe-gj-Kasv; Food Choices for Gastroesophageal Reflux Disease, Adult, Qicw-mn-Hppu; Gastroesophageal Reflux Disease, Adult, Htbl-tq-Fayj Follow up: With: Address: When: Return to Emergency Department Within As needed Comments: Follow-up as instructed Return if condition worsens With: Address: When: [facility] Within 2 to 3 days Comments: For further assistance with your Primary Care Physician please contact the Patient Resource Center at [phone]. Please follow up with Lester Peace. With: Address: When: MLEVIN RASCON [address] [place] [address], [address] [place] [phone] Business (1) Within 2 to 3 days Comment: documented in this encounter Plan of Treatment Not on file documented as of this encounter Visit Diagnoses Not on filedocumented in this encounter Care Teams Supervisor Pleating Relationship Specialty Start Date End Date José Miguel Verde MD [address] [place] [id number] PCP - General Adolescent Medicine 03/07/23 documented as of this encounter
--- OUTSIDE RECORDS SUMMARY | 2025-05-05 11:50 | XMS_ITS | Encounter Summary ---
Author Organization [facility] [employer] Address [address] [place] [address] Care Team Providers Care Painting Worker Name Role Phone José Miguel Verde MD Primary Care Provider + [phone] Encounter Details Date Type Department Care Team (Late st Contact Info) Description 07/15/2020 Transcribed Document [facility] [place] Family Medicine [address] [place] [address] ProviderNitin MD [address] [place] [address] Social History Tobacco Use Types Packs/Day Years [...] Nitin ProviderMD - 07/15/2020 11:47 AM CDT Martin Suicide Severity Rating Scale (C-SSRS) Entered On: 07/15/2020 12:21 EDT Performed On: 07/15/2020 12:20 EDT by IVORY APPIAH RN Martin Suicide Severity Rating Scale (C-SSRS) CSSRS Past [...] on filedocumented in this encounter Care Teams Painting Worker Relationship Specialty Start Date End Date José Miguel Verde MD [address] [place] [address] PCP - General Adolescent Medicine 03/07/23 documented as of this encounter
--- OUTSIDE RECORDS SUMMARY | 2025-05-05 11:50 | XMS_ITS | Encounter Summary ---
Author Organization [employer] Address [address] [place] [address] Care Team Providers Care Geophysical E Logger Name Role Phone José Miguel Verde MD Primary Care Provider + [phone] Encounter Details Date Type Department Care Team (Late st Contact Info) Description 01/08/2019 Transcribed Document [facility] [place] [facility] [address] [place] [address] ProviderNitin MD [address], [place] [address] Social History Tobacco Use Types Packs/Day Years [...] - Nitin ProviderMD - 01/08/2019 11:23 PM COLOR SEPARATION PHOTOGRAPHER ED Discharge Entered On: 01/08/2019 23:23 EST [...] 01/08/2019 23:23 EST Electronically signed by Drew, [facility] Conversion Bob[employer]er [employer]ner at 02/26/2023 11:09 PM CDT documented in this encounter Plan of Treatment Not on file documented as of this encounter Visit Diagnoses Not on filedocumented in this encounter Care Teams Geophysical E Logger Relationship Specialty Start Date End Date José Miguel Verde MD [address] [place] [address] PCP - General Adolescent Medicine 03/07/23 documented as of this encounter
[2025-05-05 11:54] VITALS: BP 143/72; PULSE 66; RESP 16; TEMP 36.9; O2SAT 100; BMI 38.0
--- NOTE | 2025-05-05 11:54 | CT_ITS ---
FINAL REPORT TECHNIQUE: IV contrast enhanced exam This study was performed with techniques to keep radiation doses as low as reasonably achievable, (ALARA). Individualized dose reduction techniques using automated exposure control or adjustment of mA and/or kV according to the patient''s size were employed. CLINICAL HISTORY: right flank pain COMPARISON: 08/07/2024 FINDINGS: Abdomen: No acute density is seen within the lung bases. Status post cholecystectomy. Solid abdominal organs are unremarkable. No bowel obstruction is present. There is no free air. No fluid collection is seen. There is no adenopathy. Pelvis: No evidence of appendicitis. No bowel wall thickening is present. 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 Distended urinary bladder is noted. There is no free fluid. IMPRESSION: No acute findings. Reviewed, Interpreted and Dictated by Berhane Ferris MD Transcribed by Mary Rayo Authenticated and [facility]
--- NOTE | 2025-05-05 11:55 | XR_ITS ---
FINAL REPORT CLINICAL HISTORY: short of breath COMPARISON: 11/01/2021 FINDINGS: No acute pulmonary opacity is present. The patient is post CABG. There is no evidence of effusion or pneumothorax. Mediastinum is unremarkable. Heart size is mildly enlarged. IMPRESSION: No acute abnormality. Reviewed, Interpreted and Dictated by Berhane Ferris MD Transcribed by Candis Rivera Authenticated and [facility]
[2025-05-05] MEDS: FAMOTIDINE 20MG/2ML VIAL 20 MG IV (12:22)
[2025-05-05] MEDS: SODIUM CHLORIDE 0.9% 10ML VIAL 8 ML IV (12:22)
[2025-05-05] MEDS: ONDANSETRON 4MG/2ML VIAL 4 MG IV (12:22)
[2025-05-05 12:28] LABS: Basophils % 0.2 % (0.1-2.0); Eosinophils % 0.2 % (0.1-12.0); Hematocrit 41.1 % (37.0-47.0); Immature Granulocytes # 0 10^3uL; Immature Granulocytes % 0 %; Lymphocytes # 0.8 K/mm3 (0.7-4.5); Lymphocytes % 17.8 % (10-50); Mean Corpuscular HGB Conc 34.1 g/dL (31.8-35.4); Mean Corpuscular Hemoglobin 32.8 pg (27.0-31.2); Mean Corpuscular Volume 96.3 fl (81-99); Mean Platelet Volume 11.4 fl (7.4-10.4); Monocytes # 0.3 K/mm3 (0.1-1.0); Monocytes % 7.3 % (1.7-9.3); Neutrophils # 3.4 K/mm3 (1.8-7.8); Neutrophils % 74.5 % (37.0-80.0); Nucleated Red Blood Cells # 0 10^3/uL; Nucleated Red Blood Cells % 0 %; Platelet Count 124 K/mm3 (142-424); Red Blood Count 4.27 M/mm3 (4.20-5.40); Red Cell Distribution Width 12.8 % (11.5-17.5); Red Cell Distribution Width-SD 45.2 fL; White Blood Count 4.5 K/mm3 (4.8-10.8)
[2025-05-05] MEDS: 0.9 % SODIUM CHLORIDE 1000ML 1,000 ML 999 ML IV (12:31)
--- NOTE | 2025-05-05 12:31 | ED_ITS ---
<Statement entered by Godwin Kelly MD - 05/05/25 16:12> EMMETT Attestation I was consulted by the EMMETT, and we discussed the complexity of problems being addressed. I approved the treatment and management plan for this patient's care in the emergency department, thus performing a substantial portion of the medical decision making. I personally discussed with patient that she needs to decrease and/or stop her laxatives as this may be the cause of her symptoms with recently starting them. Godwin Kelly MD Discharge Plan Disposition Patient Disposition: Home, Self-Care Prescriptions Prescriptions: New ondansetron HCl 4 mg tablet 4 mg PO Q8H PRN (Reason: nausea and vomiting) 4 Days Qty: 14 0RF No Action Gemtesa 75 mg tablet 75 mg PO DAILY cholecalciferol (vitamin D3) 125 mcg (5,000 unit) capsule 125 mcg PO DAILY Voquezna 20 mg tablet 20 mg PO DAILY Qty: 90 3RF cyanocobalamin (vitamin B-12) 1,000 mcg/mL solution 1,000 mcg IM MONTHLY atorvastatin [Lipitor] 10 MG tablet 10 mg PO HS alprazolam 0.25 MG tablet 0.25 mg PO TIDP PRN (Reason: Anxiety) cevimeline 30 MG capsule 30 mg PO TID hydroxychloroquine 200 MG tablet 200 mg PO BID Patient Comments: 1 a day. 2 the next day colchicine 0.6 MG tablet 0.6 mg PO DAILY fluticasone furoate 27.5 mcg/actuation spray,suspension 1 spray intranasal DAILY Qty: 5.9 0RF Rx Instructions: into each nostril Zyrtec 10 mg capsule 10 mg PO DAILY PRN (Reason: allergy symptoms) Qty: 14 0RF nitroglycerin 0.4 MG tablet, sublingual 0.4 mg sublingual Q5MINP PRN (Reason: Chest Pain) aspirin 81 MG tablet,delayed release (DR/EC) 81 mg PO DAILY atenolol 50 MG tablet 50 mg PO DAILY cyclosporine [Restasis] 1 EACH dropperette 1 drp ophthalmic (eye) DAILY colestipol 1 gram tablet 1 g PO ONCE furosemide 20 mg tablet 20 mg PO DAILY PRN (Reason: Fluid) potassium chloride 20 mEq tablet extended release 20 meq PO DAILY Qty: 30 0RF calcium polycarbophil [FiberCon] 625 mg Tablet 625 mg PO DAILY Creon 36,000-114,000- 180,000 unit capsule,delayed release(DR/EC) 1 cap PO AC Rx Instructions: Take 1 capsule by mouth before meals/snacks max 6XD Referrals Follow up/Referrals: José Miguel Verde MD [Primary Care Provider, Internal Medicine] - See instructions Clinical Impressions Clinical Impression: Acute diarrhea Instructions Patient Instructions: DI for Acute Abdominal Pain Print Language Print Language: Arabic Discharge ED Provider: Godwin Kelly Adult HPI <Kayli Dangelo (ED), SECURITY PATROL DRIVER - Last Filed: 05/05/25 14:50> General Chief complaint: Abdominal Pain Stated complaint: diarrhea after starting new fiber abd pain weaknes Time Seen by Provider: 05/05/25 11:50 Mode of Arrival: Ambulatory Source of Information: Patient Description of Symptoms (Recalled from ER Triage Doc. by RN): pt to the ED with abd. cramping and diarrhea since last night. pt reports she starting taking a new fiber supplement and when she called her PCP this morning was told to come to the ED to be seen. History of Present Illness HPI narrative: 79-year-old female presents to the ED today for complaint of upper abdominal pain that started last night. She says she changed her fiber medication realizing that the when she took had a laxative in it. She said this caused her 20 or more trips to the bathroom with diarrhea and mucus stools. She states that she does have diverticulitis already. She had a colonoscopy a few weeks ago and it showed a polyp. She has not been drinking much due to the diarrhea. She says she did stand up and have some palpitations. She believes this is from not having much to drink. She does have history of CAD and arrhythmias. She had open heart surgery approximately 27 years ago. She was here yesterday for N-Sided. She had a head scan yesterday. Related Data Home Medications ?Medication ?Instructions ?Recorded ?Confirmed alprazolam 0.25 mg tablet 0.25 mg PO TIDP PRN Anxiety 01/06/19 03/26/25 atorvastatin 10 mg tablet (Lipitor) 10 mg PO HS Choles terol 01/06/19 03/26/25 cevimeline 30 mg capsule 30 mg PO TID dry mouth 01/0603/26/25 colchicine 0.6 mg tablet 0.6 mg PO DAILY gout 9 03/26/25 hydroxychloroquine 200 mg tablet 200 mg PO BID Arthrit is 01/06/19 03/26/25 nitroglycerin 0.4 mg sublingual 0.4 mg sublingual Q5MI COMPLIANCE MONITOR PRN Chest 08/30/19 03/26/25 tablet Pain aspirin 81 mg tablet,delayed 81 mg PO DAILY heart heal th 01/04/20 03/26/25 release atenolol 50 mg tablet 50 mg PO DAILY Hypertension 01/04/20 03/26/25 cyclosporine 0.05 % eye drops in a 1 drp ophthalmic (e ye) DAILY dry 01/04/20 03/26/25 dropperette (Restasis) eyes cyanocobalamin (vitamin B-12) 1,000 mcg IM MONTHLY 08/0603/26/25 1,000 mcg/mL injection solution cholecalciferol (vitamin D3) 125 125 mcg PO DAILY 04/0603/26/25 mcg (5,000 unit) capsule colestipol 1 gram tablet 1 g PO ONCE Cholesterol 04/0603/26/25 furosemide 20 mg tablet 20 mg PO DAILY PRN Fluid 04/0603/26/25 vibegron 75 mg tablet (Gemtesa) 75 mg PO DAILY 03/26/25 calcium polycarbophil 625 mg 625 mg PO DAILY 03/24/25 03/26/25 tablet (FiberCon) kifzso-ukbjpuig-tbwedso 1 cap PO AC PANCREATIC 03/2603/26/25 36,000-114,000-180,000 unit INSUFFICIENCY capsule,delay rel (Creon) Previous Rx's ?Medication ?Instructions ?Recorded potassium chloride 20 mEq 20 meq PO DAILY #30 tabs 07/06 tablet,extended release vonoprazan 20 mg tablet (Voquezna) 20 mg PO DAILY #90 tabs 09/23/24 cetirizine 10 mg capsule (Zyrtec) 10 mg PO DAILY PRN a llergy 05/04/25 symptoms #14 caps fluticasone furoate 27.5 1 spray intranasal DAILY #5. 9 mL 05/04/25 mcg/actuation nasal spray,suspension ondansetron HCl 4 mg tablet 4 mg PO Q8H PRN nausea and 05/05/25 vomiting 4 days #14 tabs Allergies Allergy/AdvReac Type Severity Reaction Status Date / Time Penicillins Allergy Intermediate Rash Verified 03/26/25 10:11 ibuprofen (From Motrin) Allergy Mild Rash Verified 03/26/25 10:11 sulfamethoxazole (From Allergy Unknown Verified 03/26/25 10:11 Bactrim) allergy reaction trimethoprim (From Bactrim) Allergy Unknown Verified 03/26/25 10:11 allergy reaction PFSH <Kayli Dangelo (ED), SECURITY PATROL DRIVER - Last Filed: 05/05/25 14:50> PFS Disclaimer: The information contained in this section may have been updated after the patient was seen, as this information can be updated by other users. Medical History Pancreatitis Hyperlipidemia Hypertension Rheumatoid arthritis Osteoarthritis Hemorrhoids Heart disease Gout GERD (gastroesophageal reflux disease) Colon polyps Colitis CAD (coronary artery disease) History of blood transfusion Surgical History H/O left wrist surgery History of right hip replacement History of cholecystectomy History of back surgery Hx of CABG H/O right wrist surgery Family History Father Cancer Social History Smoking Status: Former smoker alcohol intake: never substance use type: denies use current occupational status: retired Travel in the last 8 weeks?: None caffeine: Yes Have you lived/traveled outside US in past 30 days?: No Contact w/someone who lives/traveled outside US past 30 days?: No Exposure to someone with infectious disease in past 14 days?: No Do you have a fever (greater than 100.4 F or 38 C)?: No Have you tested positive for COVID-19?: No Exposed to someone with COVID-19 in past 14 days?: No Do you have a sore throat?: No Do you have a cough?: No Do you have any weakness?: No Do you have any diarrhea?: Yes Are you experiencing any unusual bleeding?: No Do you have any muscle aches/pain?: No Do you have any abdominal pain?: No Are you experiencing loss of taste or smell?: No Other Medical History Have you received the Flu Vaccine for this season: Yes Have you received the Pneumonia Vaccine: Yes <Kayli Kilcorina (ED), SECURITY PATROL DRIVER - Last Filed: 05/05/25 14:50> ROS Obtained: Yes Systems reviewed as appropriate & no additional complaints except as documented Constitutional Constitutional: Reports as per HPI Physical Exam <Kayli Kilcorina (ED), SECURITY PATROL DRIVER - Last Filed: 05/05/25 14:50> General General appearance: alert Head Head exam: normocephalic Eye Eye exam: Present PERRL and EOMI ENT ENT exam: Present normal oropharynx and mucous membranes moist Neck Neck exam: Present full ROM and trachea midline Respiratory Respiratory exam: Present normal lung sounds bilaterally Cardiovascular Cardiovascular exam: Present regular rate, normal rhythm, normal heart sounds, +S1 and +S2 Abdominal Exam Abdominal exam: Present soft and normal bowel sounds Abdominal tenderness: Present epigastrium and mild Extremities Exam Extremities exam: Present full ROM and normal capillary refill Neurological Exam Neurological exam: Present alert, oriented X3 and normal gait Skin Skin exam: Present warm, dry and intact Medical Decision Making <Kayli Kilcorina (ED), SECURITY PATROL DRIVER - Last Filed: 05/05/25 14:50> Medical Records Screening: Per USPSTF and CDC recommendations, given the prevalence of disease in our region, it is our hospital?s policy to screen for HIV and viral Hepatitis for all patients aged 18 and over and those with ongoing risk factors. Earl Inquiry Pt receiving controlled substance: No Earl was queried for this patient: No Vital Signs: 05/05/25 11:54 05/05/25 15:00 05/05/25 15:06 Temperature 98.5 F 98.4 F Temperature Source Oral Oral Pulse Rate 68 71 Pulse Rate [Left Radial] 66 Respiratory Rate 16 14 17 Blood Pressure 152/71 H 152/71 H Blood Pressure [Right Arm] 143/72 H Blood Pressure Mean [Right Arm] 95 Blood Pressure Source Automatic Cuff Blood Pressure Source [Right Arm] Automatic Cuff Blood Pressure Position Sitting Blood Pressure Position [Right Arm] Sitting 02 Sat by Pulse Oximetry 100 97 Oxygen Delivery Method Room Air Room Air Room Air Lab Data Lab Results 05/05/25 12:17: WBC 4.5 L, RBC 4.27, Hgb 14.0, Hct 41.1, MCV 96.3, MCH 32.8 H, MCHC 34.1, RDW 12.8, Plt Count 124 L, MPV 11.4 H, Neut % (Auto) 74.5, Lymph % (Auto) 17.8, Davis % (Auto) 7.3, Eos % (Auto) 0.2, Baso % (Auto) 0.2, Neut # (Auto) 3.4, Lymph # (Auto) 0.8, Davis # (Auto) 0.3, Eos # (Auto) 0.0, Baso # (Auto) 0.0, APTT 23.9, Sodium 141, Potassium 3.7, Chloride 104, Carbon Dioxide 27, Anion Gap 13.7, BUN 20 H, Creatinine 0.90, Estimated Creat Clear 62, Estimated GFR 61, Est GFR ( Amer) 73, Glucose 97, Calcium 9.5, Magnesium 1.9, Total Bilirubin 1.3, AST 50 H, ALT 29, Alkaline Phosphatase 74, Troponin I 0.02, Total Protein 7.6, Albumin 4.8, Globulin 2.8, Albumin/Globulin Ratio 1.7, Lipase 101 05/05/25 14:45: Troponin I 0.02 05/05/25 12:17 05/05/25 12:17 Orders (Tests/Meds): ED MEDICATIONS Discontinued Medications Generic Name Dose Route Start Last Admin Trade Name Freq PRN Reason Stop Dose Admin Diphenhydramine HCl 25 mg 05/05/25 13:51 05/05/25 14:11 Diphenhydramine 50mg/Ml Vial IV 05/05/25 13:52 25 mg ONCE ONE Administration Famotidine 20 mg 05/05/25 11:54 05/05/25 12:22 Famotidine 20mg/2ml Vial IV 05/05/25 11:55 20 mg ONCE ONE Administration Sodium Chloride 1,000 mls @ 999 mls/hr 05/05/25 11:54 05/05/25 12:31 Sod Chlor 0.9% 1000ml Bag IV 05/05/25 12:54 999 mls/hr .Q1H1M ONE Administration Sodium Chloride 1,000 mls @ 100 mls/hr 05/05/25 11:54 Sod Chlor 0.9% 1000ml Bag IV 05/05/25 21:53 .Q10H ONE Iopamidol 75 ml 05/05/25 13:03 05/05/25 13:04 Iopamidol-370 (76%);100ml Bottle IV 05/05/25 13:04 75 ml ONCE ONE Administration Metoclopramide HCl 10 mg 05/05/25 13:51 05/05/25 14:11 Metoclopramide Hcl 10mg/2ml Vial IVP 05/05/25 13:52 10 mg ONCE ONE Administration Ondansetron HCl 4 mg 05/05/25 11:54 05/05/25 12:22 Ondansetron 4mg/2ml Vial IV 05/05/25 11:55 4 mg ONCE ONE Administration Sodium Chloride 8 ml 05/05/25 11:54 05/05/25 12:22 Sodium Chloride 0.9% 10ml Vial IV 06/04/25 11:53 8 ml NEEDED PRN Administration dilute pepcid Sodium Chloride 10 ml 05/05/25 13:03 05/05/25 13:04 Sodium Chloride 0.9% 10ml Syr (Rad Only) IV 05/05/25 13:04 10 ml ONCE ONE Administration ORDERS Category Date Time Status CT abdomen pelvis w con Stat Cat Scan 05/05/25 11:54 Completed Chest XR -- portable [XR chest portable] Stat Exams 05/05/25 11:55 Completed CBC [Complete Blood Count Auto Diff] Stat Lab 05/05/25 12:17 Completed Comprehensive Metabolic Panel Stat Lab 05/05/25 12:17 Completed Lipase Stat Lab 05/05/25 12:17 Completed Magnesium Stat Lab 05/05/25 12:17 Completed PTT [Activated Partial Thrombo Time] Stat Lab 05/05/25 12:17 Completed Trop I [Troponin I] Stat Lab 05/05/25 12:17 Completed Troponin I Q3H Lab 05/05/25 14:45 Completed Medical Decision Narrative: patient is a 79-year-old female presenting to the emergency department for evaluation of upper abdominal pain and 20+ trips to the bathroom after she changed her fiber meds and accidentally took a laxative. She feels dehydrated.. Patient is hemodynamically stable and nontoxic-appearing upon arrival, afebrile. Differential diagnosis includes diverticulitis, medication, among others. Workup will be conducted with hematologic labs, specific imaging, provocative tests. Initial inventions include crystalloid bolus, Pepcid, Benadryl and Zofran as well as Reglan. Initial workup reviewed by nm hematologic labs are remarkable for nothing acute. Imaging informally interpreted by me and remarkable for nothing acute. See formal radiology report for official reading. Upon repeat evaluation patient's pain is improved. Dr. Kelly and I both saw this patient. Patient does feel improved. We discussed discharge follow-up. Patient is safe for discharge. <Godwin Kelly MD - Last Filed: 05/05/25 16:14> Vital Signs: 05/05/25 11:54 05/05/25 15:00 05/05/25 15:06 Temperature 98.5 F 98.4 F Temperature Source Oral Oral Pulse Rate 68 71 Pulse Rate [Left Radial] 66 Respiratory Rate 16 14 17 Blood Pressure 152/71 H 152/71 H Blood Pressure [Right Arm] 143/72 H Blood Pressure Mean [Right Arm] 95 Blood Pressure Source Automatic Cuff Blood Pressure Source [Right Arm] Automatic Cuff Blood Pressure Position Sitting Blood Pressure Position [Right Arm] Sitting 02 Sat by Pulse Oximetry 100 97 Oxygen Delivery Method Room Air Room Air Room Air Lab Data Lab Results 05/05/25 12:17: WBC 4.5 L, RBC 4.27, Hgb 14.0, Hct 41.1, MCV 96.3, MCH 32.8 H, MCHC 34.1, RDW 12.8, Plt Count 124 L, MPV 11.4 H, Neut % (Auto) 74.5, Lymph % (Auto) 17.8, Davis % (Auto) 7.3, Eos % (Auto) 0.2, Baso % (Auto) 0.2, Neut # (Auto) 3.4, Lymph # (Auto) 0.8, Davis # (Auto) 0.3, Eos # (Auto) 0.0, Baso # (Auto) 0.0, APTT 23.9, Sodium 141, Potassium 3.7, Chloride 104, Carbon Dioxide 27, Anion Gap 13.7, BUN 20 H, Creatinine 0.90, Estimated Creat Clear 62, Estimated GFR 61, Est GFR ( Amer) 73, Glucose 97, Calcium 9.5, Magnesium 1.9, Total Bilirubin 1.3, AST 50 H, ALT 29, Alkaline Phosphatase 74, Troponin I 0.02, Total Protein 7.6, Albumin 4.8, Globulin 2.8, Albumin/Globulin Ratio 1.7, Lipase 101 05/05/25 14:45: Troponin I 0.02 Orders (Tests/Meds): ED MEDICATIONS Discontinued Medications Generic Name Dose Route Start Last Admin Trade Name Dilanq PRN Reason Stop Dose Admin Diphenhydramine HCl 25 mg 05/05/25 13:51 05/05/25 14:11 Diphenhydramine 50mg/Ml Vial IV 05/05/25 13:52 25 mg ONCE ONE Administration Famotidine 20 mg 05/05/25 11:54 05/05/25 12:22 Famotidine 20mg/2ml Vial IV 05/05/25 11:55 20 mg ONCE ONE Administration Sodium Chloride 1,000 mls @ 999 mls/hr 05/05/25 11:54 05/05/25 12:31 Sod Chlor 0.9% 1000ml Bag IV 05/05/25 12:54 999 mls/hr .Q1H1M ONE Administration Sodium Chloride 1,000 mls @ 100 mls/hr 05/05/25 11:54 Sod Chlor 0.9% 1000ml Bag IV 05/05/25 21:53 .Q10H ONE Iopamidol 75 ml 05/05/25 13:03 05/05/25 13:04 Iopamidol-370 (76%);100ml Bottle IV 05/05/25 13:04 75 ml ONCE ONE Administration Metoclopramide HCl 10 mg 05/05/25 13:51 05/05/25 14:11 Metoclopramide Hcl 10mg/2ml Vial IVP 05/05/25 13:52 10 mg ONCE ONE Administration Ondansetron HCl 4 mg 05/05/25 11:54 05/05/25 12:22 Ondansetron 4mg/2ml Vial IV 05/05/25 11:55 4 mg ONCE ONE Administration Sodium Chloride 8 ml 05/05/25 11:54 05/05/25 12:22 Sodium Chloride 0.9% 10ml Vial IV 06/04/25 11:53 8 ml NEEDED PRN Administration dilute pepcid Sodium Chloride 10 ml 05/05/25 13:03 05/05/25 13:04 Sodium Chloride 0.9% 10ml Syr (Rad Only) IV 05/05/25 13:04 10 ml ONCE ONE Administration ORDERS Category Date Time Status CT abdomen pelvis w con Stat Cat Scan 05/05/25 11:54 Completed Chest XR -- portable [XR chest portable] Stat Exams 05/05/25 11:55 Completed CBC [Complete Blood Count Auto Diff] Stat Lab 05/05/25 12:17 Completed Comprehensive Metabolic Panel Stat Lab 05/05/25 12:17 Completed Lipase Stat Lab 05/05/25 12:17 Completed Magnesium Stat Lab 05/05/25 12:17 Completed PTT [Activated Partial Thrombo Time] Stat Lab 05/05/25 12:17 Completed Trop I [Troponin I] Stat Lab 05/05/25 12:17 Completed Troponin I Q3H Lab 05/05/25 14:45 Completed Critical Care <Godwin Kelly MD - Last Filed: 05/05/25 16:14> Critical Care Time Critical Care Time: No
[2025-05-05 12:34] LABS: Albumin Level 4.8 g/dl (3.5-5.0); Chloride 104 mmol/L (98-107)
[2025-05-05 12:35] LABS: Potassium 3.7 mmoL/L (3.5-5.1); Sodium 141 mmol/L (136-145)
[2025-05-05 12:37] LABS: Alanine Aminotransferase 29 U/L (12-78); Anion Gap 13.7 mEq/L (5-15); Aspartate Amino Transferase 50 U/L (14-36); Blood Urea Nitrogen 20 mg/dl (7-17); Carbon Dioxide 27 mmol/L (22.0-30.0); Creatinine Clearance Estimated 62 mL/min (50-200); Estimated Glomerular Filt Rate 61 ml/min (>60); GFR (African American) 73 ML/MIN (>60)
[2025-05-05 12:38] LABS: Albumin/Globulin Ratio 1.7 (1.1-1.8); Alkaline Phosphatase 74 U/L (38-126); Bilirubin,Total 1.3 mg/dl (0.2-1.3); Calcium 9.5 mg/dl (8.4-10.2); Globulin 2.8 g/dL (1.3-3.2); Glucose 97 mg/dl (74-100); Lipase 101 U/L (23-300); Magnesium 1.9 mg/dl (1.6-2.3); Total Protein,Serum 7.6 g/dl (6.3-8.2)
[2025-05-05 12:48] LABS: Activated Partial Thrombo Time 23.9 seconds (22.8-30.6)
[2025-05-05 12:50] LABS: Troponin I 0.02 ng/ml (0.00-0.034)
[2025-05-05] MEDS: IOPAMIDOL-370 (76%);100ML BOTTLE 75 ML IV (13:04)
[2025-05-05] MEDS: SODIUM CHLORIDE 0.9% 10ML SYR (RAD ONLY) 10 ML IV (13:04)
[2025-05-05] MEDS: diphenhydrAMINE 50MG/ML VIAL 25 MG IV (14:11)
[2025-05-05] MEDS: METOCLOPRAMIDE HCL 10MG/2ML VIAL 10 MG IVP (14:11)
--- NOTE | 2025-05-05 14:19 | ECG_ITS ---
APPROVED REPORT Exam: Resting ECG HR:63 bpm ECG Measurements Heart Rate 63 AXES MN 144 P 58 QRSd 125 QRS 64 QT 435 T 236 QTc 443 Conclusion SINUS RHYTHM MODERATE INTRAVENTRICULAR CONDUCTION DELAY [110+ ms QRS DURATION] MODERATE T-WAVE ABNORMALITY, CONSIDER LATERAL ISCHEMIA [-0.1+ mV T-WAVE IN I/aVL/V5/V6] MODERATE T-WAVE ABNORMALITY, CONSIDER INFERIOR ISCHEMIA [-0.1+ mV T-WAVE IN II/aVF] ABNORMAL ECG UNCONFIRMED REPORT Electronically signed by : NARCISO DOTY, 05/06/2025 06:32:28
[2025-05-05 15:00] VITALS: BP 152/71; PULSE 68; RESP 14; O2SAT 97
[2025-05-05 15:06] VITALS: BP 152/71; PULSE 71; RESP 17; TEMP 36.9; O2SAT 96
[2025-05-05 15:34] LABS: Troponin I 0.02 ng/ml (0.00-0.034)
== END 2025-05-05 15:09 | disposition home or self-care (01) ==
PROVIDERS: Nurse Practitioner; Emergency Provider Student in an Organized Health Care Education/Training Program; PCP Internal Medicine Adolescent Medicine
DX: R10.10 Upper abdominal pain, unspecified (principal); R53.1 Weakness; R19.7 Diarrhea, unspecified; I10 Essential (primary) hypertension; E78.5 Hyperlipidemia, unspecified; I25.10 Atherosclerotic heart disease of native coronary artery without angina pectoris; Z87.891 Personal history of nicotine dependence
CPT/HCPCS: 71045; 74177; 80053; 83690; 83735; 84484; 85025; 85730; 93005; 96361; 96374; 96375; 99285; J1200; J2405; J2765; J7030; Q9967

== ENCOUNTER 2025-05-11 04:53 | Observation (INO) | payer MEDICARE, BC, SELFPAY ==
[2025-05-11] VITALS (10 sets, daily range): BP systolic 108–142; BP diastolic 58–94; PULSE 48–70; RESP 13–19; TEMP 36.5–36.9; O2SAT 95–99; BMI 38.0; BMI 36.6
--- NOTE | 2025-05-11 04:55 | ECG_ITS ---
APPROVED REPORT Exam: Resting ECG HR:58 bpm ECG Measurements Heart Rate 58 AXES FL 136 P 52 QRSd 100 QRS 57 QT 450 T 226 QTc 448 Conclusion SINUS BRADYCARDIA INCOMPLETE RIGHT BUNDLE BRANCH BLOCK [90+ ms QRS DURATION, TERMINAL R IN V1/V2, 40+ ms S IN I/aVL/V4/V5/V6] MODERATE T-WAVE ABNORMALITY, CONSIDER ANTEROLATERAL ISCHEMIA [-0.1+ mV T-WAVE IN V3-V6] MODERATE T-WAVE ABNORMALITY, CONSIDER INFERIOR ISCHEMIA [-0.1+ mV T-WAVE IN II/aVF] No STEMI Electronically signed by : BRI MARCH, 05/12/2025 06:50:45
--- NOTE | 2025-05-11 04:58 | XR_ITS ---
PROCEDURE INFORMATION: Exam: XR Chest Exam date and time: 05/11/2025 5:24 AM Age: 79 years old Clinical indication: Pain; Left-sided; Additional info: Cp TECHNIQUE: Imaging protocol: Radiologic exam of the chest. Views: 1 view. COMPARISON: CR XR CHEST PORTABLE 05/05/2025 1:19 PM FINDINGS: Lungs: Hyperinflated lungs. No infiltrate. No pleural effusion. Pleural spaces: Unremarkable. No pleural effusion. No pneumothorax. Heart/Mediastinum: Unremarkable. No cardiomegaly. Bones/joints: Unremarkable. IMPRESSION: Hyperinflated lungs. No acute process
[2025-05-11] MEDS: NITROGLYCERIN 0.4MG SL TABLET 0.4 MG SL (05:04)
[2025-05-11] MEDS: BELLADONNA ALKALOIDS 60 ML ML PO (05:04)
--- NOTE | 2025-05-11 05:06 | [facility]H.EDCP ---
Discharge Plan Disposition Patient Disposition: Admitted Condition: Fair Prescriptions Prescriptions: No Action Gemtesa 75 mg tablet 75 mg PO DAILY cholecalciferol (vitamin D3) 125 mcg (5,000 unit) capsule 125 mcg PO DAILY Voquezna 20 mg tablet 20 mg PO DAILY Qty: 90 3RF cyanocobalamin (vitamin B-12) 1,000 mcg/mL solution 1,000 mcg IM MONTHLY atorvastatin [Lipitor] 10 MG tablet 10 mg PO HS alprazolam 0.25 MG tablet 0.25 mg PO TIDP PRN (Reason: Anxiety) cevimeline 30 MG capsule 30 mg PO TID hydroxychloroquine 200 MG tablet 200 mg PO BID Patient Comments: 1 a day. 2 the next day colchicine 0.6 MG tablet 0.6 mg PO DAILY fluticasone furoate 27.5 mcg/actuation spray,suspension 1 spray intranasal DAILY Qty: 5.9 0RF Rx Instructions: into each nostril Zyrtec 10 mg capsule 10 mg PO DAILY PRN (Reason: allergy symptoms) Qty: 14 0RF ondansetron HCl 4 mg tablet 4 mg PO Q8H PRN (Reason: nausea and vomiting) 4 Days Qty: 14 0RF nitroglycerin 0.4 MG tablet, sublingual 0.4 mg sublingual Q5MINP PRN (Reason: Chest Pain) aspirin 81 MG tablet,delayed release (DR/EC) 81 mg PO DAILY atenolol 50 MG tablet 50 mg PO DAILY cyclosporine [Restasis] 1 EACH dropperette 1 drp ophthalmic (eye) DAILY colestipol 1 gram tablet 1 g PO ONCE furosemide 20 mg tablet 20 mg PO DAILY PRN (Reason: Fluid) potassium chloride 20 mEq tablet extended release 20 meq PO DAILY Qty: 30 0RF calcium polycarbophil [FiberCon] 625 mg Tablet 625 mg PO DAILY Creon 36,000-114,000- 180,000 unit capsule,delayed release(DR/EC) 1 cap PO AC Rx Instructions: Take 1 capsule by mouth before meals/snacks max 6XD Referrals Follow up/Referrals: Provider,Referral, [Primary Care Provider, Medical] - See instructions Clinical Impressions Clinical Impression: Atypical chest pain Print Language Print Language: Welsh Discharge ED Provider: Alem Szymanski General Chief Complaint: Chest Pain Stated Complaint: chest pain Time Seen by Provider: 05/11/25 04:57 Mode of Arrival: EMS Source of Information: Patient and EMS History of Present Illness HPI narrative: 79-year-old female with history of open heart surgery, GERD, palpitations, elevated LFTs presents to the ER with complaints of chest pain. Patient reports she had a similar episode last night but after taking 2 aspirin at home it had resolved. Tonight around 3:30 AM she got up to use the restroom and started having chest pain radiating down her left arm. She does not describe it as pressure or squeezing but also does not describe it as stabbing. She cannot give me a good description of the pain. She states she took 2, 325 mg aspirins at home without resolution prior to calling EMS. EMS reports patient received 1 dose of nitro with them. Patient reports this took her pain from a 7 down to a 5. She is not having any nausea or dizziness with it. Patient reports she has had some sweating with her pain but she states this happens anytime her heart skips a beat which she has reportedly been told can be normal with that happening. Patient does not take any medications for swelling in the legs. She reports no fevers, chills, difficulty breathing, vomiting, diarrhea, or other associated symptoms. Related Data Home Medications ?Medication ?Instructions ?Recorded ?Confirmed alprazolam 0.25 mg tablet 0.25 mg PO TIDP PRN Anxiety 01/06/19 03/26/25 atorvastatin 10 mg tablet (Lipitor) 10 mg PO HS Cholesterol 01/06/19 03/26/25 cevimeline 30 mg capsule 30 mg PO TID dry mouth 01/06/19 03/26/25 colchicine 0.6 mg tablet 0.6 mg PO DAILY gout 01/06/19 03/26/25 hydroxychloroquine 200 mg tablet 200 mg PO BID Arthritis 01/06/19 03/26/25 nitroglycerin 0.4 mg sublingual 0.4 mg sublingual Q5MINP PRN Chest 08/30/19 03/26/25 tablet Pain aspirin 81 mg tablet,delayed 81 mg PO DAILY heart health 01/04/20 03/26/25 release atenolol 50 mg tablet 50 mg PO DAILY Hypertension 01/04/20 03/26/25 cyclosporine 0.05 % eye drops in a 1 drp ophthalmic (eye) DAILY dry 01/04/20 03/26/25 dropperette (Restasis) eyes cyanocobalamin (vitamin B-12) 1,000 mcg IM MONTHLY 08/21/24 03/26/25 1,000 mcg/mL injection solution cholecalciferol (vitamin D3) 125 125 mcg PO DAILY 12/18/24 03/26/25 mcg (5,000 unit) capsule colestipol 1 gram tablet 1 g PO ONCE Cholesterol 12/18/24 03/26/25 furosemide 20 mg tablet 20 mg PO DAILY PRN Fluid 12/18/24 03/26/25 vibegron 75 mg tablet (Gemtesa) 75 mg PO DAILY 12/18/24 03/26/25 calcium polycarbophil 625 mg 625 mg PO DAILY 03/24/25 03/26/25 tablet (FiberCon) bywngl-[id number]-bdexevb 1 cap PO AC PANCREATIC 03/26/25 03/26/25 36,000-114,000-180,000 unit INSUFFICIENCY capsule,delay rel (Creon) Previous Rx's ?Medication ?Instructions ?Recorded potassium chloride 20 mEq 20 meq PO DAILY #30 tabs 01/19/24 tablet,extended release vonoprazan 20 mg tablet (Voquezna) 20 mg PO DAILY #90 tabs 09/23/24 cetirizine 10 mg capsule (Zyrtec) 10 mg PO DAILY PRN allergy 05/04/25 symptoms #14 caps fluticasone furoate 27.5 1 spray intranasal DAILY #5.9 mL 05/04/25 mcg/actuation nasal spray,suspension ondansetron HCl 4 mg tablet 4 mg PO Q8H PRN nausea and 05/05/25 vomiting 4 days #14 tabs Allergies Allergy/AdvReac Type Severity Reaction Status Date / Time Penicillins Allergy Intermediate Rash Verified 03/26/25 10:11 ibuprofen (From Motrin) Allergy Mild Rash Verified 03/26/25 10:11 sulfamethoxazole (From Allergy Unknown Verified 03/26/25 10:11 Bactrim) allergy reaction trimethoprim (From Bactrim) Allergy Unknown Verified 03/26/25 10:11 allergy reaction PFSH PFSH Disclaimer: The information contained in this section may have been updated after the patient was seen, as this information can be updated by other users. Medical History Pancreatitis Hyperlipidemia Hypertension Rheumatoid arthritis Osteoarthritis Hemorrhoids Heart disease Gout GERD (gastroesophageal reflux disease) Colon polyps Colitis CAD (coronary artery disease) History of blood transfusion Surgical History H/O left wrist surgery History of right hip replacement History of cholecystectomy History of back surgery Hx of CABG H/O right wrist surgery Family History Father Cancer Social History Smoking Status: Never smoker alcohol intake: never substance use type: denies use current occupational status: retired Travel in the last 8 weeks?: None caffeine: Yes Other Medical History Have you received the Flu Vaccine for this season: Yes Have you received the Pneumonia Vaccine: Yes ROS Obtained: Yes Systems reviewed as appropriate & no additional complaints except as documented per HPI Physical Exam General General appearance: alert, in no apparent distress and obese Head Head exam: atraumatic and normocephalic Eye Eye exam: Present PERRL and EOMI ENT ENT exam: Present mucous membranes moist Neck Neck exam: Present normal inspection and full ROM Chest Chest inspection: Present symmetric chest wall rise Respiratory Respiratory exam: Present normal lung sounds bilaterally; Absent respiratory distress, wheezes or stridor Cardiovascular Cardiovascular exam: Present normal rhythm and bradycardia Abdominal Exam Abdominal exam: Present soft; Absent distention or tenderness Extremities Exam Extremities exam: Present full ROM and edema (very mild +1 bilateral lower extremity edema) Neurological Exam Neurological exam: Present alert and oriented X3; Absent motor sensory deficit Psychiatric Psychiatric exam: Present normal affect and normal mood Skin Skin exam: Present warm and dry HEART Score HEART Score HEART Score assessment performed?: Yes History (anamnesis): Moderately suspicious ECG: Non-specific disturbance Age: >65 years Risk factors: Atherosclerosis history Troponin: </= normal limit HEART Score: 6 Critical Care Critical Care Time Critical Care Time: No Medical Decision Making Medical Records Medical records reviewed: Yes I reviewed the patient's medical records. Earl Inquiry Pt receiving controlled substance: No Vital Signs Vital Signs: 05/11/25 05:11 Temperature 98.2 F Temperature Source Oral Pulse Rate [Right] 54 L Respiratory Rate 18 Blood Pressure [Right Arm] 133/66 Blood Pressure Mean [Right Arm] 88 Blood Pressure Source [Right Arm] Automatic Cuff Blood Pressure Position [Right Arm] Supine 02 Sat by Pulse Oximetry 99 Oxygen Delivery Method Room Air Lab Data Labs: Lab Results 05/11/25 04:21: WBC 5.1, RBC 4.27, Hgb 14.0, Hct 41.0, MCV 96.0, MCH 32.8 H, MCHC 34.1, RDW 12.9, Plt Count 133 L, MPV 11.9 H, Neut % (Auto) 67.6, Lymph % (Auto) 21.7, [place] % (Auto) 9.1, Eos % (Auto) 1.0, Baso % (Auto) 0.2, Neut # (Auto) 3.4, Lymph # (Auto) 1.1, [place] # (Auto) 0.5, Eos # (Auto) 0.1, Baso # (Auto) 0.0, PT 11.4, INR 1.03, D-Dimer 0.46, Sodium 141, Potassium 3.9, Chloride 104, Carbon Dioxide 27, Anion Gap 13.9, BUN 21 H, Creatinine 1.00, Estimated GFR 54 L, Est GFR ( Amer) 65, Glucose 93, Calcium 9.5, Total Bilirubin 1.4 H, AST 43 H, ALT 31, Alkaline Phosphatase 67, Troponin I 0.02, NT-Pro-B Natriuret Pep 926 H, Total Protein 7.1, Albumin 4.7, Globulin 2.4, Albumin/Globulin Ratio 2.0 H 05/11/25 04:21 05/11/25 04:21 Response Orders (Tests/Meds): ED MEDICATIONS Generic Name Dose Route Start Last Admin Trade Name Freq PRN Reason Stop Dose Admin Nitroglycerin 0.4 mg 05/11/25 04:58 05/11/25 05:04 Nitroglycerin 0.4mg Sl Tablet SL 05/12/25 04:58 0.4 mg Q5MINP PRN Administration Chest Pain Discontinued Medications Generic Name Dose Route Start Last Admin Trade Name Freq PRN Reason Stop Dose Admin Belladonna Alkaloids 60 ml 05/11/25 04:58 05/11/25 05:04 Belladonna Alkaloids 60 Ml Ml PO 05/11/25 04:59 60 ml ONCE ONE Administration ORDERS Category Date Time Status XR chest portable Stat Exams 05/11/25 04:58 Taken Complete Blood Count Auto Diff Stat Lab 06/29/25 04:21 Completed Comprehensive Metabolic Panel Stat Lab 05/11/25 04:21 Completed D-Dimer Stat Lab 05/11/25 04:21 Completed NT Pro Brain Natriuretic Pep. Stat Lab 05/11/25 04:21 Completed Prothrombin Time INR Stat Lab 05/11/25 04:21 Completed Troponin I Q3H Lab 05/11/25 08:00 Ordered Troponin I Q3H Lab 05/11/25 11:00 Ordered Troponin I Stat Lab 05/11/25 04:21 Completed Venous Blood Gas Stat RT 05/11/25 05:10 Ordered MDM Narrative Medical Decision Narrative: In summary, this 79-year-old female with extensive past cardiac history and multiple other comorbidities presents to the emergency department today with chest pain radiating to left arm with some relief with nitro from EMS. On initial evaluation patient is mildly bradycardic but otherwise hemodynamically stable, afebrile, GCS 15, mild bilateral lower extremity pitting edema, remainder of exam benign. Differential diagnosis includes but is not limited to ACS, PE, esophageal spasm, patient has a history of GERD which could be flaring up but less likely to be causing pain radiating to the left arm, also considered pneumothorax, pneumonia, fluid overload, palpitations, anxiety, among others. Based on these concerns, I ordered serum labs, EKG, chest x-ray. ECG personally interpreted demonstrates sinus bradycardia, rate 58, normal axis, normal [place] and QTc, stable appearance from previous ECG earlier this month which I reviewed. Patient received nitro and GI cocktail initiallyfor treatment. Labs personally reviewed demonstrate no leukocytosis or anemia, PT/INR normal, D-dimer normal at 0.46, PE excluded by years criteria. CMP with slight prerenal azotemia but patient is tolerating oral intake and with her mild peripheral edema I am not going to administer IV fluids. Slight hyperbilirubinemia and trace abnormalities in her LFTs are stable from prior, troponin 0.02, similar to previous, BNP 926 which is elevated though it has been higher than this in the past. On reassessment after receiving initial medications, patient's pain is down from a 5 now a 2 out of 10. She feels much better XR personally interpreted demonstrates no acute intrathoracic abnormality, see radiology read for final interpretation which is pending at this time. Patient is at high risk for cardiac etiology given her extensive cardiac history and her description of multiple episodes of symptoms. I recommended admission to the hospital for continued cardiac monitoring and workup. Patient is agreeable to this. I discussed this case with the hospitalist including her reassuring lab workup and stable ECG, patient was graciously accepted to the hospitalist for admission. Prior to admission patient's VBG resulted showing alkalosis with hypocarbia, patient was mildly anxious on arrival and I believe she hyperventilated causing her VBG abnormalities. She has good oxygenation and is feeling significantly improved compared to arrival so I suspect she will self-correct this VBG quickly. Patient admitted in stable condition.
[2025-05-11 05:07] LABS: Hematocrit 41.0 % (37.0-47.0); Hemoglobin 14.0 g/dL (12.2-16.2); Immature Granulocytes % 0.4 %; Mean Corpuscular HGB Conc 34.1 g/dL (31.8-35.4); Mean Corpuscular Hemoglobin 32.8 pg (27.0-31.2); Mean Corpuscular Volume 96.0 fl (81-99); Nucleated Red Blood Cells % 0 %; Platelet Count 133 K/mm3 (142-424); Red Blood Count 4.27 M/mm3 (4.20-5.40); Red Cell Distribution Width-SD 45.8 fL; White Blood Count 5.1 K/mm3 (4.8-10.8)
[2025-05-11 05:13] LABS: Albumin Level 4.7 g/dl (3.5-5.0); Chloride 104 mmol/L (98-107); Potassium 3.9 mmoL/L (3.5-5.1); Sodium 141 mmol/L (136-145)
[2025-05-11 05:16] LABS: Alanine Aminotransferase 31 U/L (12-78); Albumin/Globulin Ratio 2.0 (1.1-1.8); Alkaline Phosphatase 67 U/L (38-126); Anion Gap 13.9 mEq/L (5-15); Aspartate Amino Transferase 43 U/L (14-36); Bilirubin,Total 1.4 mg/dl (0.2-1.3); Blood Urea Nitrogen 21 mg/dl (7-17); Carbon Dioxide 27 mmol/L (22.0-30.0); Creatinine,Serum 1.00 mg/dl (0.52-1.04); Estimated Glomerular Filt Rate 54 ml/min (>60); GFR (African American) 65 ML/MIN (>60); Globulin 2.4 g/dL (1.3-3.2); Total Protein,Serum 7.1 g/dl (6.3-8.2)
[2025-05-11 05:17] LABS: Calcium 9.5 mg/dl (8.4-10.2); Glucose 93 mg/dl (74-100)
[2025-05-11 05:18] LABS: INR 1.03 (0.9-1.1); Prothrombin Time 11.4 seconds (10.1-12.5)
[2025-05-11 05:26] LABS: D-Dimer 0.46 ug/mL (0.0-0.5); NT Pro Brain Natriuretic Pep. 926 pg/mL (0-450)
[2025-05-11 05:28] LABS: Troponin I 0.02 ng/ml (0.00-0.034)
--- OUTSIDE RECORDS SUMMARY | 2025-05-11 05:42 | XMS_ITS | Encounter Summary ---
Author Organization [facility] Address [address] [place] [address] Care Team Providers Care Financial Aid Administrator Name Role Phone José Miguel Verde MD Primary Care Provider + [phone] Encounter Details Date Type Department Care Team (Late st Contact Info) Description 07/15/2020 Transcribed Document [facility] [place] Family Medicine [address] [place] [address] ProviderNitin MD [address] [place] [address] Social History Tobacco Use Types Packs/Day Years [...] Nitin ProviderMD - 07/15/2020 11:47 AM CDT [place] Suicide Severity Rating Scale (C-SSRS) Entered On: 07/15/2020 12:21 EDT Performed On: 07/15/2020 12:20 EDT by IVORY APPIAH RN [place] Suicide Severity Rating Scale (C-SSRS) CSSRS Past [...] on filedocumented in this encounter Care Teams Financial Aid Administrator Relationship Specialty Start Date End Date José Miguel Verde MD [address] [place] [id number] PCP - General Adolescent Medicine 03/07/23 documented as of this encounter
--- OUTSIDE RECORDS SUMMARY | 2025-05-11 05:42 | XMS_ITS | Encounter Summary ---
Author Organization [facility] [employer] [facility] [employer] Address [address] [place] [address] Care Team Providers Care Face Boss Name Role Phone José Miguel Verde MD Primary Care Provider + [phone] Encounter Details Date Type Department Care Team (Late st Contact Info) Description 01/09/2019 Transcribed Document [facility] [place] Family Medicine [address] [place] [address] ProviderNitin MD [address], [place] [address] Social History Tobacco Use Types Packs/Day Years [...] - Historical ProviderMD - 01/09/2019 8:32 AM MUSIC INSTRUCTOR CR Chest 1 Vw Portable Ordered: 01/08/2019 Modified Reason for Exam: chest pain 01/09/2019 07:59 01/09/2019 08:32 (ЕЛЕНА LINDSEY) No further action required documented in this encounter Plan of Treatment Not on file documented as of this encounter Visit Diagnoses Not on filedocumented in this encounter Care Teams Face Boss Relationship Specialty Start Date End Date José Miguel Verde MD [address] [place] [id number] PCP - General Adolescent Medicine 03/07/23 documented as of this encounter
--- OUTSIDE RECORDS SUMMARY | 2025-05-11 05:42 | XMS_ITS | Encounter Summary ---
Author Organization [facility] [employer] Address [address] [place] [address] Care Team Providers Care Veneer Grader Name Role Phone José Miguel Verde MD Primary Care Provider + [phone] Encounter Details Date Type Department Care Team (Late st Contact Info) Description 01/08/2019 Transcribed Document [facility] [place] [address] [place] [address] ProviderNitin MD [address] [id number] Social History Tobacco Use Types Packs/Day Years [...] - Historical ProviderMD - 01/08/2019 11:24 PM CAMPAIGN FUNDRAISER [address] [place] [address] PERSON INFORMATION Name GINA HECTOR YUMIKO Age 73 Years 1945 Sex Female Language Bhutanese PCP MELVIN RASCON MD-INT Marital Status Med Service Emergency Medicine Acct# Arrival 01/08/2019 18:41:00 Visit Reason Chest pain; CHEST PAIN/LEFT ARM PAIN Acuity 3 - Urgent LOS 000 04:43 Depart Date: 01/08/19 11:24 PM Address: [address] [facility] [address] [place] [address] Comment: PROVIDER INFORMATION Provider Role Assigned Unassigned BEAR KING ARNP ED Physician 01/08/2019 18:50:05 Roc Saenz, INFORMATION ANALYST Nurse 01/08/2019 18:59:17 KEYUR BROWN MD ED [...] PATIENT EDUCATION INFORMATION Instructions: Nonspecific Chest Pain, [id number]; Food Choices for Gastroesophageal Reflux Disease, Adult, [id number]-[id number]; Gastroesophageal Reflux Disease, Adult, [id number]-[id number] Follow up: With: Address: When: Return to Emergency Department Within As needed Comments: Follow-up as instructed Return if condition worsens With: Address: When: [facility] Within 2 to 3 days Comments: For further assistance with your Primary Care Physician please contact the Patient Resource Center at [phone]. Please follow up with [facility]. With: Address: When: MELVIN RASCON [address] [place] [address], [address] [place] [phone] Business (1) Within 2 to 3 days Comment: documented in this encounter Plan of Treatment Not on file documented as of this encounter Visit Diagnoses Not on filedocumented in this encounter Care Teams Veneer Grader Relationship Specialty Start Date End Date José Miguel Verde MD [address] [place] [id number] PCP - General Adolescent Medicine 03/07/23 documented as of this encounter
--- OUTSIDE RECORDS SUMMARY | 2025-05-11 05:42 | XMS_ITS | Encounter Summary ---
Author Organization [facility] Address [address] [place] [address] Care Team Providers Care Medical Geneticist Name Role Phone José Miguel Verde MD Primary Care Provider + [phone] Encounter Details Date Type Department Care Team (Late st Contact Info) Description 01/08/2019 Transcribed Document [facility] [place] Family Medicine [address] [place] [address] ProviderNitin MD [address] [id number] Social History Tobacco Use Types Packs/Day Years [...] - Nitin ProviderMD - 01/08/2019 6:41 PM GANTRY RIGGER ED Assessment Entered On: 01/08/2019 19:12 EST Performed On: 01/08/2019 19:11 EST by Roc Saenz RN ED Quick Look Assessment Level of Consciousness : Alert, Awake Affect/Behavior : Appropriate, Calm Orientation : Oriented x 4 Roc Saenz RN - 01/08/2019 19:11 EST ED General-Functional Assess Information Obtained From : Patient Communication Barrier : None Primary Language : Kenyan Any Spiritual/Cultural Needs or Requests : No [...] 01/08/2019 19:11 EST Electronically signed by Drew [facility] [employer] News Photographer Cerner at 02/26/2023 11:00 PM CDT documented in this encounter Plan of Treatment Not on file documented as of this encounter Visit Diagnoses Not on filedocumented in this encounter Care Teams Medical Geneticist Relationship Specialty Start Date End Date José Miguel Verde MD [address] [place] [address] PCP - General Adolescent Medicine 03/07/23 documented as of this encounter
--- OUTSIDE RECORDS SUMMARY | 2025-05-11 05:42 | XMS_ITS | Referral Summary ---
Author Organization [facility] [employer] Address [address] [place] [address] Care Team Providers Care Cafeteria Manager Name Role Phone José Miguel Verde MD Primary Care Provider + [phone] Allergies Active Allergy Reactions Criticality Noted Date [...] by mouth in the morning. Active pancrelipase, Gfk-Wvle-Ijub, (CREON) 36,000-114,000 - 180,000 unit CpDR capsule [...] of Transportation (Non-Medical) Not on file 03/07/2023 Food Insecurity Answer Date Recorded Food run [...] Date Hamilton rded Speak language other than Setswana at home Not on file 12/01/2023 Want help with school or training Not on file 12/01/2023 Substance Use Answer Date Recorded Used [...] of Assessment Author No 03/11/2023 10:21 AM APPLET Tere Adamson RN * Are you blind or do you have serious difficulty seeing, even when wearing glasses? Answer Date of Assessment Author No 03/11/2023 10:21 AM APPLET Tere Adamson RN * Do you have serious difficulty walking or climbing stairs? Answer Date of Assessment Author Yes 03/11/2023 10:21 AM APPLET Tere Adamson RN * Do you have serious difficulty dressing or bathing? Answer Date of Assessment Author No 03/11/2023 10:21 AM CDT Tere Adamson RN * Because of a physical, mental, or emotional condition, do you have serious difficulty doing errandsalone such as visiting the doctor? Answer Date of Assessment Author No 03/11/2023 10:21 AM APPLET Tere Adamson RN Mental Status * Because of a physical, mental, or emotional condition, do you have serious difficulty concentrating, remembering, or making decisions? (5 years old or older) Answer Entry Date Author No 03/11/2023 10:21 AM CDT Tere Adamson RN Plan of Treatment Not on file Insurance MEDICARE PART [place] [address] Advance Directives For more information, please contact: [phone] * Full Code (Latest Code Status on File) Date Activated Date Inactivated Comments 03/10/2023 5:00 PM 03/11/2023 12:05 PM * Full Code Date Activated Date Inactivated Comments 03/07/2023 2:51 PM 03/10/2023 5:00 PM Care Teams Cafeteria Manager Relationship Specialty Start Date End Date José Miguel Verde MD [address] [place] [id number] PCP - General Adolescent Medicine 03/07/23
--- OUTSIDE RECORDS SUMMARY | 2025-05-11 05:42 | XMS_ITS | Encounter Summary ---
Author Organization [facility] In iatives Address [address] [place] [address] Care Team Providers Care Dyno Technician Name Role Phone José Miguel Verde MD Primary Care Provider + [phone] Encounter Details Date Type Department Care Team (Late st Contact Info) Description 01/08/2019 Transcribed Document [facility] [place] [address] [place] [address] ProviderNitin MD [address] [place] [address] Social History Tobacco Use Types [...] - Nitin ProviderMD - 01/08/2019 11:24 PM SPORTS ANCHOR [address] [place] [address] Patient Information Name: GINA HECTOR Age: [...] please contact the Patient Resource Center at [phone]. Please follow up with Lester Peace. With: Address: When: MELVIN KARINELENITA [address] [facility], [address] [place] [phone] Business (1) Within 2 to 3 days [...] you start to feel better. ??? Take ixkg-qrf-ugpcsen and prescription medicines only as told by [...] 04/17/2009 Document Revised: 07/24/2017 Document Reviewed: 07/24/2017 ElseNovaled Interactive Patient Education ? 2017 Elsevier Inc. [...] VegetablesTomatoes. Tomato juice. Tomato and spaghetti sauce. [place] peppers. Onion and garlic. Horseradish. FruitsOranges, grapefruit, [...] spearmint. Fats and OilsHigh-fat foods. This includes Ivorian fries and potato chips. OtherVinegar. Strong spices. [...] 04/30/2013 Document Revised: 04/06/2017 Document Reviewed: 09/03/2014 ElseNovaled Interactive Patient Education ? 2017 [employer] Inc. Gastroesophageal Reflux Disease, Adult Introduction Normally, [...] vinegar, hot sauces, and BBQ sauce. ? [place] fruit juices and citrus fruits, such as oranges, olga, and limes. ? Tomato-based foods, such as red sauce, chili, salsa, and pizza with red sauce. ? Fried and fatty foods, such as donuts, polish fries, potato chips, and high-fat dressings. ? [...] any changes in your symptoms. ??? Take uyuc-cdj-ctkdjgj and prescription medicines only as told by [...] range between ( 0.0 and 7.0 ) Otero #: 0.53 K/uL -- Normal range between ( 0.16 and 1.00 ) Eos #: 0.03 x10(3)/uL -- Normal range between ( 0.00 and 0.80 ) [place] %: 9.2 % -- Normal range between [...] that HECTOR GINA CALDERON was seen at [facility] Emergency Department on ,01/08/2019 23:24:10. This [...] along the way. As a healthcare provider, [facility] recommends that you stop smoking. Assistance with quitting is available by contacting 8-570-BALJ-NOW. This is a free resource providing counseling, [...] Electronic Communications Privacy Act 18 U.S.C. ???Sections 3976-9842,?? and contain information intended for the specified [...] sure to sign up for the My [facility] patient portal, which gives you 05/06 access to your medical information ??? including these discharge instructions ??? using your computer, smartphone, or tablet. Just go to [employer] to get started. Questions? Call . Acknowledgment [...] Instructions: Emergency Physician: Electronically signed by Drew, [facility] Conversion Track Surfacing Machine Operator Cerner at 02/26/2023 11:12 PM CDT documented in this encounter Plan of Treatment Not on file documented as of this encounter Visit Diagnoses Not on filedocumented in this encounter Care Teams Dyno Technician Relationship Specialty Start Date End Date José Miguel Verde MD [address] [place] [address] PCP - General Adolescent Medicine 03/07/23 documented as of this encounter
--- OUTSIDE RECORDS SUMMARY | 2025-05-11 05:42 | XMS_ITS | Encounter Summary ---
Author Organization [facility] In iatives Address [address] [place] [address] Care Team Providers Care Count Room Clerk Name Role Phone José Miguel Verde MD Primary Care Provider + [phone] Encounter Details Date Type Department Care Team (Late st Contact Info) Description 07/15/2020 Transcribed Document [facility] [place] Medicine [address] [place] [address] ProviderNitin MD [address] [place], [place] [id number] Social History Tobacco Use Types Packs/Day Years [...] ProviderMD - 07/15/2020 4:16 PM CDT [facility] [address] GINA HECTOR :1945 Visit Time:07/15/2020 Your [...] When Within 2 to 3 days Where: [address] [place] [address] [facility] (1) Allergies ibuprofen (Itching, Itching) levofloxacin [...] range between ( 0.0 and 7.0 ) [place] #: 0.55 K/uL -- Normal range between ( 0.16 and 1.00 ) Eos #: 0.06 x10(3)/uL -- Normal range between ( 0.00 and 0.80 ) [place]ettis %: 9.3 % -- Normal range between [...] safe for you. General instructions ??? Take ufwx-kcd-kcqufpg and prescription medicines only as told by [...] 10/30/2006 Document Revised: 05/02/2019 Document Reviewed: 05/02/2019 SidelineSwap Patient Education ?? 2020 Skyword. Nonspecific Chest Pain, Adult Chest pain can [...] these instructions at home: Medicines ??? Take zlqh-zpz-tqvozsp and prescription medicines only as told by [...] 08/09/2006 Document Revised: 05/02/2019 Document Reviewed: 05/02/2019 [employer]eline[employer]ap Patient Education ?? 2020 [employer]eline[employer] Inc. Emergency Awareness and Preventative Care STROKE [...] Assistance with quitting is available by contacting 4-337-DRNC-NOW. This is a free resource providing counseling, [...] was given the opportunity to ask questions. Patient/Assistant Maintenance Manager Name: Patient/Assistant Maintenance Manager Signature: Relationship to Patient: Clinician/Hospital Assistant Maintenance Manager Signature: Please Provide a Telephone Number Where You Can Be Reached: Is it Permissible To Leave a Message? Date: Electronically signed by Sarah Russell Conversion Marketing [employer] Jessica at 02/26/2023 11:01 PM CDT documented in this encounter Plan of Treatment Not on file documented as of this encounter Visit Diagnoses Not on filedocumented in this encounter Care Teams Count Room Clerk Relationship Specialty Start Date End Date José Miguel Verde MD [address] [place] [address] PCP - General Adolescent Medicine 03/07/23 documented as of this encounter
--- OUTSIDE RECORDS SUMMARY | 2025-05-11 05:42 | XMS_ITS | Encounter Summary ---
Author Organization [facility] In iatives Address [address] [place] [address] Care Team Providers Care Rotary Saw Operator Name Role Phone José Miguel Verde MD Primary Care Provider + [phone] Encounter Details Date Type Department Care Team (Late st Contact Info) Description 07/15/2020 Transcribed Document [facility] [place] Family Medicine [address] [place] [address] ProviderNitin MD [address] [place], [place] [id number] Social History Tobacco Use Types Packs/Day Years [...] On: 07/15/2020 11:56 EDT by CARMEN PICKETT, CENTRAL OFFICE TROUBLE SHOOTER Triage Across the Room Chief Complaint : pt c/o CP for 2 days, hurting in left arm, sharp 04/22, took NTG yesterday went away, started today took NTH with xanax and now a 4/10, no NVD, Triage Date/Time : 07/15/2020 11:56 EDT CARMEN PICKETT RN - 07/15/2020 11:56 EDT DCP GENERIC CODE Tracking Acuity : 2 - Emergent Tracking Group : [facility] ED CARMEN PICKETT RN - 07/15/2020 11:56 EDT Mode of Arrival : Ambulatory Transported to ED by : Private vehicle To Room Via : Wheelchair Accompanied By : Unaccompanied ED Vital Signs : Document Height & Weight : Document ED Allergies : Document ED Reason for Visit : Document Tetanus Immunization : Unknown Conveyor Maintenance Mechanic Needed : No CARMEN PICKETT RN - [...] PNED ; Probability: 0 ; Diagnosis Code: [id number] ED Height and Weight Height Source : Stated Height Entry Format : [place] Height, Feet : 5 ft(Converted to: 152 cm, 60 Inch) Height, Inches : 2 Inch(Converted to: 0 ft 2 Inch, 5.08 cm) Clinical Height : 157.48 cm Weight Source, ED : Critical estimated dosing weight Weight Entry Format : [place] Weight, Pounds : 222 lb Clinical Dosing Weight : 100.91 kg Body Surface Area (BSA) : 2 m2 Body Mass Index : 40.7 kg/m2 (>HHI) [place] Body Weight (IBW) : 49.73 kg CARMEN [...] the text rendition version of the form. Electronically signed by Sarah Russell Conversion Automatic Quilling Machine Operator Cerner at 02/26/2023 10:55 PM CDT documented in this encounter Plan of Treatment Not on file documented as of this encounter Visit Diagnoses Not on filedocumented in this encounter Care Teams Rotary Saw Operator Relationship Specialty Start Date End Date José Miguel Verde MD [address] [place] [address] PCP - General Adolescent Medicine 03/07/23 documented as of this encounter
--- OUTSIDE RECORDS SUMMARY | 2025-05-11 05:42 | XMS_ITS | Encounter Summary ---
Author Organization [facility] In iatives Address [address] [place] [address] Care Team Providers Care Academic Affairs Coordinator Name Role Phone José Miguel Verde MD Primary Care Provider + [phone] Encounter Details Date Type Department Care Team (Late st Contact Info) Description 01/08/2019 Transcribed Document [facility] [place] Family Medicine [address] [place] [address] ProviderNitin MD [address] [place], [place] [id number] Social History Tobacco Use Types Packs/Day Years [...] - Historical ProviderMD - 01/08/2019 7:04 PM PHYSICAL THERAPY DIRECTOR Patient: GINA HECTOR Age: 73 years Sex: [...] noted. Histroy of triple bypass. Dr. preciado director behavioral health. . History of Present Illness The patient [...] EST Height Source Stated Height Entry Format [place] Height/Length, [place]IZ[place] (ft) 5 ft Height/Length [place] 2 Inch CLINICALHEIGHT 157.48 cm [place] Body Weight 49.73 kg Weight Source, ED Critical estimated dosing weight Weight Entry Format Mcnairy Weight [place] lb 230 lb CLINICALWEIGHT 104.55 kg Body [...] 18.0 % LOW Lymph # 1.04 x10(3)/uL Turner % 9.2 % [place] Turner # 0.53 K/uL Eos % 0.5 % [...] appointment with her primary care doctor and director behavioral health for discussion of recent ER visits. Patient [...] following educational materials: Gastroesophageal Reflux Disease, Adult, Bdlg-wj-Pctd, Food Choices for Gastroesophageal Reflux Disease, Adult, Ysri-aq-Dqxe, Nonspecific Chest Pain, Caci-rz-Yves. Follow up with: [facility]OURCE [facility] Within 2 to 3 days For further assistance with your Primary Care Physician please contact the Patient Resource Center at [phone]. Please follow up with Lester Peace.; MELVIN RASCON Within 2 to 3 days; Return to Emergency Department Within As needed Follow-up as instructed Return if condition worsens. Counseled: Patient, Family, Regarding diagnosis, Regarding diagnostic results, Regarding treatment plan, Patient indicated understanding of instructions. Electronically signed by Sarah Russell Conversion Early Intervention School Psychologist Cerner at 02/26/2023 11:07 PM CDT documented in this encounter Plan of Treatment Not on file documented as of this encounter Visit Diagnoses Not on filedocumented in this encounter Care Teams Academic Affairs Coordinator Relationship Specialty Start Date End Date José Miguel Verde MD [address] [place] [address] PCP - General Adolescent Medicine 03/07/23 documented as of this encounter
--- OUTSIDE RECORDS SUMMARY | 2025-05-11 05:42 | XMS_ITS | Encounter Summary ---
Author Organization [facility] In iatives Address [address] [place] [address] Care Team Providers Care Dermatologist Name Role Phone José Miguel Verde MD Primary Care Provider + [phone] Encounter Details Date Type Department Care Team (Late st Contact Info) Description 07/15/2020 Transcribed Document [facility] [place] [address] [place] [address] ProviderNitin MD [address], [place] [id number] Social History Tobacco Use Types Packs/Day Years [...] Nitin ProviderMD - 07/15/2020 4:[address] [place] [address] GINA HECTOR :1945 Visit Time:07/15/2020 Your [...] appointment Where: [address] [place] [address]- Business (1) Follow Up with Follow up with primary care provider When Within 1 to 2 days Comments Take home medications as directed, follow with PCP, return to emergency Department with new or worsening symptoms Follow Up with MELVIN RASCON When Within 2 to 3 days Where: [address] [facility] [address] [place] [address]- Business (1) Allergies ibuprofen (Itching, Itching) [...] range between ( 0.0 and 7.0 ) [place] #: 0.55 K/uL -- Normal range between ( 0.16 and 1.00 ) Eos #: 0.06 x10(3)/uL -- Normal range between ( 0.00 and 0.80 ) [place] %: 9.3 % -- Normal range between [...] safe for you. General instructions ??? Take hmlk-pit-jvlskrn and prescription medicines only as told by [...] 10/30/2006 Document Revised: 05/02/2019 Document Reviewed: 05/02/2019 Radical Studios Patient Education ?? 2020 NewsBreak. Nonspecific Chest Pain, Adult Chest pain can [...] these instructions at home: Medicines ??? Take eofr-whd-dkrzmhs and prescription medicines only as told by [...] 08/09/2006 Document Revised: 05/02/2019 Document Reviewed: 05/02/2019 [employer] Studios Patient Education ?? 2020 [employer] Inc. Emergency Awareness and Preventative Care STROKE [...] Assistance with quitting is available by contacting 9-228-QFLM-NOW. This is a free resource providing counseling, [...] was given the opportunity to ask questions. Patient/Photograph Tinter Name: Patient/Photograph Tinter Signature: Relationship to Patient: Clinician/Hospital Photograph Tinter Signature: Please Provide a Telephone Number Where You Can Be Reached: Is it Permissible To Leave a Message? Date: Electronically signed by Interface, [facility] Conversion Weave Defect Charting Clerk Cerner at 02/26/2023 11:06 PM CDT documented in this encounter Plan of Treatment Not on file documented as of this encounter Visit Diagnoses Not on filedocumented in this encounter Care Teams Dermatologist Relationship Specialty Start Date End Date José Miguel Verde MD [address] [place] [address] PCP - General Adolescent Medicine 03/07/23 documented as of this encounter
--- OUTSIDE RECORDS SUMMARY | 2025-05-11 05:42 | XMS_ITS | Encounter Summary ---
Author Organization [employer] In iatives Address [address] [place] [address] Care Team Providers Care Fork Truck Driver Name Role Phone José Miguel Verde MD Primary Care Provider + [phone] Encounter Details Date Type Department Care Team (Late st Contact Info) Description 01/08/2019 Transcribed Document [facility] [place] Family Medicine [address] [place] [address] ProviderNitin MD [address] [place], [place] [id number] Social History Tobacco Use Types Packs/Day Years [...] - Nitin ProviderMD - 01/08/2019 11:23 PM ACCOUNTANT SUPERVISOR ED Discharge Entered On: 01/08/2019 23:23 EST [...] 01/08/2019 23:23 EST Electronically signed by Drew, [facility] Conversion Election Judge Cerner at 02/26/2023 11:09 PM CDT documented in this encounter Plan of Treatment Not on file documented as of this encounter Visit Diagnoses Not on filedocumented in this encounter Care Teams Fork Truck Driver Relationship Specialty Start Date End Date José Miguel Vedre MD [address] [place] [address] PCP - General Adolescent Medicine 03/07/23 documented as of this encounter
--- OUTSIDE RECORDS SUMMARY | 2025-05-11 05:42 | XMS_ITS | Encounter Summary ---
Author Organization [facility] In iatives Address [address] [place] [address] Care Team Providers Care Warehouse Receiving Supervisor Name Role Phone José Miguel Verde MD Primary Care Provider + [phone] Encounter Details Date Type Department Care Team (Late st Contact Info) Description 07/15/2020 Transcribed Document [facility] [place] Family Medicine [address] [place] [address] ProviderNitin MD [address] [place] [id number] Social History Tobacco Use Types Packs/Day Years [...] action required x1 Electronically signed by Drew [facility] Conversion State Highway Police Officer Cerner at 02/26/2023 11:08 PM CDT documented in this encounter Plan of Treatment Not on file documented as of this encounter Visit Diagnoses Not on filedocumented in this encounter Care Teams Warehouse Receiving Supervisor Relationship Specialty Start Date End Date José Miguel Verde MD [address] [place] [address] PCP - General Adolescent Medicine 03/07/23 documented as of this encounter
--- OUTSIDE RECORDS SUMMARY | 2025-05-11 05:42 | XMS_ITS | Data Portability ---
Author Organization [facility] [place], [facility] [place] CLOS[place] Address [address] [place] [address] Care Team Providers Care Visitor Information Assistant Name Role Phone MIGDALIA KHANNA Primary Care Provider MIGUEL SALAZAR Rare/Endangered Species Specialist Assessment Encounter Date Assessment Date Assessment LastModified [...] graft angiography. This was carried out by [facility] on March 10 and revealed ostial RCA [...] has been evaluated in the ER at [facility] on 01/15/2024 for chest pain. She was [...] has been evaluated in the ER at [facility] on 01/15/2024 for chest pain. She was [...] has been evaluated in the ER at [facility] on 01/15/2024 for chest pain. She was [...] follow-up visit. RTC: 6 months with EKG [email or web address] Not available 10/29/2024 19:34:29 Plan of Treatment [...] By Organization Details Last Modified Time 02/28/2024 [id number] body mass index: care instructions [email or web address] Not available 02/28/2024 18:49:40 high blood pressure: care instructions Not available 02/28/2024 18:49:40 10/29/2024 [id number] body mass index: care instructions Not available [...] color flow No observ ation record ed. [address], [place], [address], 01/29/2024 09:10:07 01/30/20 24 01/19/2024 US, doppl er echoc ardio gram, w/ color flow No observ ation record ed. [address], [place], [address], 01/31/2024 13:06:02 01/30/20 24 01/19/2024 US, doppl er echoc ardio gram, w/ color flow No observ ation record ed. [address] (Med Record) [address], [place], [address], 01/31/2024 13:05:34 01/30/20 24 01/15/2024 elect rocar diogr am No observ ation record ed. [address], [place], [address], 01/31/2024 13:05:20 02/12/20 24 01/19/2024 US, doppl er echoc ardio gram, w/ color flow No observ ation record ed. [address], [place], [address], 02/12/2024 15:34:23 02/12/20 24 02/06/2024 event monit or No observ ation record ed. [address], [place], [address], 02/13/2024 11:15:22 05/02/20 24 04/24/2024 elect geetha johnson am No observ ation record ed. BARCODE Not Available 2023 08:45:48 Result Notes None recorded. Problems Name Problem SNOMED Code Status Onset Date Resolution Date Notes Provider Name and Address Organization Details Recorded Time Coronary arteriosc lerosis in ute artery 264382725832 7 Active 2014 From Automated Load;Prov ider: Jason Amado;Stat us: Active [facility] 0 15:08:54 Hyperlipi demia 75250352 Active 2014 From Automated Load;Prov ider: Jason Amado;Stat us: Active [facility] 0 15:08:54 Problem Notes None recorded. Procedures Surgical History Date Name Laterality Status Provider Name and Address Organization Details Recorded Time 04/24/20 24 EKG completed MIGUEL SALAZAR MD [address] [place] [address], [phone], [facility] 04/26/2024 11:09:13 10/23/20 23 EKG completed MIGUEL SALAZAR MD [address] [place] [address], [phone], [facility] 10/23/2023 14:45:41 10/25/20 22 EKG completed YELENA GARCIA PA-C [address] [place] [address], [phone], [facility] 10/25/2022 14:05:38 04/25/20 22 EKG completed YELENA GARCIA PA-C [address] [place], [address], [facility] 04/25/2022 14:01:56 10/20/20 21 EKG completed YELENA GARCIA PA-C [address] [place], [address], [facility] 10/20/2021 14:58:02 10/12/20 10 Cardiac Catheterization completed [facility] 03/29/2017 15:44:16 09/13/20 02 Cardiac Surgery completed [facility] 03/29/2017 15:43:45 Other completed [facility] 03/29/2017 15:43:14 Cholecystectomy completed [facility] 03/29/2017 15:43:26 Other completed [facility] 03/29/2017 15:44:26 Other completed [facility] 03/29/2017 15:44:34 Other completed [facility] 03/29/2017 15:44:42 Other completed [facility] 03/29/2017 15:44:50 Imaging Results None recorded. Procedure Notes None recorded. Medical Equipment None Reported. Allergies Allergen ID Allergen Name Allergen Category Reaction Reaction Severity Criticality Documentation Date Start Date Code Code System Note Provider Name and Address Organization Details Recorded Time 406943 Motrin medicatio n itching Not available Not available 10/06/2016200948 8 RxNorm React ion: ITCHI NG; Comme nt: Creat ed By: Marge rivas Date: 08/31 3:29: 43 PM; Not Available [facility] 6 14:10:00 [id number] Product containin g penicilli n (product) medicatio n rash Not available Not available 10/07/20162009 11523 8001 SNOMED React ion: RASH; Comme nt: Creat ed By: Marge Helms reate d Date: 08/31 3:29: 20 PM; Not Available [facility] 6 03:51:38 Medications Name Sig Start Date [...] Not Available Not Available Lipoflavo noid tablet 04/03 completed Duration : 10 days;Med ication [...] Updated DateTime 4 162.56 cm 34 kg/m2 19269.0 1 g 97 % 97 % 64 /min 120 mm[Hg] 68 mm[Hg] Magda Zhong [facility] 4 15:03:41 Date Recorded Body height Body mass index (BMI) Body weight Heart rate Respiratory rate Oxygen saturation Oxygen saturation in Arterial blood by Pulse oximetry Systolic blood pressure Diastolic blood pressure Provider Name and Address Organization Details Last Updated DateTime 3 162.56 cm 34.1 kg/m2 27654.3 9 g 59 /min 16 /min 96 % 96 % 120 mm[Hg] 78 mm[Hg] Maddi Llanes [facility] 3 09:29:27 Date Recorded Body height Body mass index (BMI) Body weight Respiratory rate Heart rate Oxygen saturation Oxygen saturation in Arterial blood by Pulse oximetry Systolic blood pressure Diastolic blood pressure Provider Name and Address Organization Details Last Updated DateTime 4 162.56 cm 34.4 kg/m2 11125.5 7 g 16 /min 58 /min 98 % 98 % 124 mm[Hg] 66 mm[Hg] Lo Ramirez [facility] 4 14:52:40 Date Recorded Body height Body mass index (BMI) Body weight Heart rate Oxygen saturation Oxygen saturation in Arterial blood by Pulse oximetry Systolic blood pressure Diastolic blood pressure Provider Name and Address Organization Details Last Updated DateTime 3 162.56 cm 34.8 kg/m2 96848.4 6 g 58 /min 97 % 97 % 122 mm[Hg] 65 mm[Hg] Emily Malloy [facility] 3 13:51:20 Date Recorded Body height Oxygen saturation Oxygen saturation in Arterial blood by Pulse oximetry Heart rate Systolic blood pressure Diastolic blood pressure Provider Name and Address Organization Details Last Updated DateTime 4 162.56 cm 98 % 98 % 65 /min 140 mm[Hg] 70 mm[Hg] Magda Zhong [facility] 4 14:03:05 Social History Question Answer Notes LastModified by Konnect[employer] ion Details LastModified Time Tobacco Smoking Status Never Smoker Leidy Ryder [facility] 03/29/2017 15:41:57 How Much Tobacco Do You Chew? None Information not available 11/23/2020 Marital Status Informatio n not available 03/29/2017 What Was The Date Of Your Most Recent Tobacco Screening? 10/29/2024 Information not available 10/29/2024 How Many Children Do You Have? 1 Information not available 03/29/2017 What Is Your Relationship Status? [email or web address] Information not available 10/23/2023 How Much Tobacco Do You Smoke? No Information not available 11/23/2020 Has Tobacco Cessation Counseling Been Provided? No Information not available 02/28/2024 Have You Recently Traveled Abroad? 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 Information not available 03/29/2017 Do you or have you ever used e-cigarettes or vape? Never used electronic cigarettes [email or web address] Information not available 10/24/2019 Mental Status None [...] available 2016 15:41:41 Medical History Condition Response Coronary Artery Disease Y Atrial Fibrillation N Heart Arrhythmia N COPD N Peripheral Arterial Disease N Edema Y Nervous Illness Y Hiatal hernia N Acid Reflux (GERD) Y Cancer N Stroke N Arrhythmia N Endocrine Disorder N Heart Problems Y Heart Conditions Y Implanted Cardiac Device N Ulcers N Rheumatic Fever N Tuberculosis N AIDS/HIV N Asthma N Cardiac Disease Y Peripheral Vascular Disease N Jaundice N GERD/Reflux Y Restless leg syndrome N Thyroid Disease N Lung Disease N Pacemaker N History of Blood Thinners Y Blood Thinners Y Shortness of Breath N High Cholesterol Y Thyroid Problems N Chest Pain Y Heart Attack (AZ) Y Diabetes N Heart Murmur N Hyperlipidemia Y Sleep Apnea N Warfarin Management N Heart Disease Y Hypertension Y Gynecological HistoryNo gynecological history recorded. Obstetrics History GPAL:G 0 P 0 0 0 0 Immunizations Vaccine Type Date Status Note Provider Nam e and Address Organization Details Recorded Time COVID-19, mRNA, LNP-S, PF, 100 mcg/0.5mL dose or 50 mcg/0.25mL dose 12/09/2020 completed Emily Malloy [facility] 10/20/2021 14:10:21 COVID-19, mRNA, LNP-S, PF, 100 mcg/0.5mL dose or 50 mcg/0.25mL dose 01/06/2021 completed Emily Malloy [facility] 10/20/2021 14:10:37 COVID-19, mRNA, LNP-S, PF, 100 mcg/0.5mL dose or 50 mcg/0.25mL dose 08/11/2021 jeremy Malloy [facility] 10/20/2021 14:10:54 Past Encounters Encounter ID Performer Location Encounter Start Date Encounter Closed Date Diagnosis/Indication Diagnosis SNOMED-CT Code Diagnosis ICD10 Code Diagnosis Note [id number] JASON AMADO MD CARDIOLOG Y [address] [place] [address] 04/03/2017 13:10:27 04/03/2017 13:49:50 Coronary arteriosclerosis in ute artery 6846615487 107 I25.10 Medication changes, as well as [...] call for any change in status. Hyperlipidemia 43032307 E78.5 reviewed outside lipid studies. All parameters are in appropriat e range. She is to continue her current regimen. [id number] JASON AMADO MD CARDIOLOG Y [address] [place] [address] 09/25/2017 12:53:34 09/25/2017 14:36:54 Coronary arteriosclerosis in ute artery 5625108928 107 I25.10 Medication changes, as well as [...] call for any change in status. Hyperlipidemia 69140330 E78.5 reviewed outside lipid studies. All parameters are in appropriat e range. She is to continue her current regimen. [id number] JASON AMADO MD CARDIOLOG Y [place] [address] [place] [address] 04/02/2018 09:28:26 04/02/2018 11:01:03 Coronary arteriosclerosis in ute artery 9571218759 107 I25.10 Medication changes, as well as [...] call for any change in status. Hyperlipidemia 93189739 E78.5 reviewed outside lipid studies. All parameters are in appropriat e range. She is to continue her current regimen. [id number] JASON AMADO MD CARDIOLOG Y [address] [place] [id number] 10/22/2018 13:48:50 10/22/2018 15:10:00 Coronary arteriosclerosis in ute artery 4175560362 107 I25.10 Medication changes, as well as [...] call for any change in status. Hyperlipidemia 57213237 E78.5 Most recent testing reviewed. All laboratory measuremen ts in appropriat e parameters on current medical therapy. This was reviewed and discussed with the patient and all questions answered. [id number] JASON AMADO MD CARDIOLOG Y [address] [place] [address] 02/07/2019 11:09:23 02/07/2019 13:35:19 Coronary arteriosclerosis in ute artery 1913808678 107 I25.10 Medication changes, as well as [...] call for any change in status. Hyperlipidemia 03599842 E78.5 Most recent testing reviewed. All laboratory measuremen ts in appropriat e parameters on current medical therapy. This was reviewed and discussed with the patient and all questions answered. [id number] JASON AMADO MD CARDIOLOG Y [address] [place] [id number] 05/08/2019 13:19:05 05/08/2019 13:58:46 Coronary arteriosclerosis in ute artery 9118310553 107 I25.10 Medication changes, as well as [...] call for any change in status. Hyperlipidemia 58671969 E78.5 Most recent testing reviewed. All laboratory measuremen ts in appropriat e parameters on current medical therapy. This was reviewed and discussed with the patient and all questions answered. Edema of foot 837291840 R60.0 I discussed the importance of salt restrictio n. Per FDA recommenda tions, I advise limit of 2000 -2400 mg daily of sodium. Increase sodium intake is often associated with worsening of hypertensi on and or heart failure.DA SH diet given.. Advised to increase furosemide to 40 mg a day until edema resolves and then resume previous dosage. [id number] FROILAN BAGLEY MD HEM/ONC [facility] [address] [place] [address] 09/09/2019 08:55:56 09/09/2019 09:56:44 [id number] FROILAN BAGLEY MD HEM/ONC [place] [facility] [address] [place] [address] 09/23/2019 14:46:58 09/23/2019 15:53:02 [id number] JASON AMADO MD CARDIOLOG Y [address] [place] [address] 10/24/2019 12:38:41 10/24/2019 13:57:59 Coronary arteriosclerosis in ute artery 0370500713 107 I25.10 Medication changes, as well as [...] call for any change in status. Hyperlipidemia 14518814 E78.5 Most recent testing reviewed. All laboratory measuremen ts in appropriat e parameters on current medical therapy. This was reviewed and discussed with the patient and all questions answered. Edema of foot 795660462 R60.0 I discussed the importance of salt restrictio n. Per FDA recommenda tions, I advise limit of 2000 -2400 mg daily of sodium. Increase sodium intake is often associated with worsening of hypertensi on and or heart failure.DA SH diet given.. Advised to increase furosemide to 40 mg a day until edema resolves and then resume previous dosage. [id number] FROILAN BAGLEY MD HEM/[facility]C [facility] [address] [place] [address] 04/20/2020 12:49:16 04/20/2020 13:27:21 [id number] JASON AMADO MD CARDIOLOG Y [address] [place] [phone] 05/04/2020 13:42:38 05/04/2020 14:45:16 Coronary arteriosclerosis in ute artery 8052238987 107 I25.10 Medication changes, as well as [...] call for any change in status. Hyperlipidemia 66308174 E78.5 Most recent testing reviewed. All laboratory measuremen ts in appropriat e parameters on current medical therapy. This was reviewed and discussed with the patient and all questions answered. Edema of foot 723014623 R60.0 I discussed the importance of salt restrictio n. Per FDA recommenda tions, I advise limit of 2000 -2400 mg daily of sodium. Increase sodium intake is often associated with worsening of hypertensi on and or heart failure.DA SH diet given.. Advised to increase furosemide to 40 mg a day until edema resolves and then resume previous dosage. [id number] JASON AMADO MD CARDIOLOG Y [address] [place] [id number] 11/23/2020 14:04:41 11/23/2020 15:54:54 Coronary arteriosclerosis in ute artery 8859728858 107 I25.10 Medication changes, as well as [...] call for any change in status. Hyperlipidemia 91692419 E78.5 Most recent testing reviewed. All laboratory measuremen ts in appropriat e parameters on current medical therapy. This was reviewed and discussed with the patient and all questions answered. Edema of foot 988092967 R60.0 I discussed the importance of salt restrictio n. Per FDA recommenda tions, I advise limit of 2000 -2400 mg daily of sodium. Increase sodium intake is often associated with worsening of hypertensi on and or heart failure.DA SH diet given.. Advised to increase furosemide to 40 mg a day until edema resolves and then resume previous dosage. COVID-19 969983122 U07.1 I had extensive discussion with patient regarding the importance of vaccinatio n and reviewed findings of COVID 19 infection and answered all questions. [id number] JASON AMADO MD CARDIOLOG Y [address] [place] [address] 04/22/2021 10:16:00 04/22/2021 10:42:04 Coronary arteriosclerosis in ute artery 0004956840 107 I25.10 Medication changes, as well as [...] No testing needed at this time Hyperlipidemia 63185311 E78.5 Most recent testing reviewed. All laboratory measuremen ts in appropriat e parameters on current medical therapy. This was reviewed and discussed with the patient and all questions answered. Edema of foot 357390964 R60.0 I discussed the importance of salt restrictio n. Per FDA recommenda tions, I advise limit of 2000 -2400 mg daily of sodium. Increase sodium intake is often associated with worsening of hypertensi on and or heart failure.DA SH diet given.. Advised to increase furosemide to 40 mg a day until edema resolves and then resume previous dosage. COVID-19 731050256 U07.1 I had extensive discussion with patient regarding the importance of vaccinatio n and reviewed findings of COVID 19 infection and answered all questions. [id number] YELENA GARCIA PA-C CARDIOLOG Y [address] [place] [address] 10/20/2021 13:30:08 10/20/2021 15:19:47 Coronary arteriosclerosis 59477117 I25.10 Medication changes, as well as new [...] call for any change in status Dyslipidemia 831679350 E 78.5 Lipid goals discussed with patient. (Total cholestero l less than 170, LDL less than 70. ) Continue heart healthy diet.bertin nue current dose of Lipitor. [id number] YELENA GARCIA PA-C CARDIOLOG Y [address] [place] [id number] 04/25/2022 13:10:58 04/25/2022 14:17:13 Obese 949031881 E66.9 Coronary arteriosclerosis 76931333 I25.10 Medication changes, as well as new [...] call for any change in status Dyslipidemia 455280906 E 78.5 Lipid goals discussed with patient. (Total cholestero l less than 170, LDL less than 70. ) Continue heart healthy diet.bertin nue current dose of Lipitor. [id number] YELENA GARCIA PA-C CARDIOLOG Y [address] [place] [address] 10/25/2022 13:07:16 10/25/2022 14:19:06 Obese 268838068 E66.9 Coronary arteriosclerosis 29674338 I25.10 The patient is doing well on current management . No new active problems identified . Chronic problems are all stable. Patient is to continue current regimen without change. All questions answered and regimen reviewed. Patient is to call for any change in status Dyslipidemia 758148323 E 78.5 Continue current dose of Lipitor. Obtain fasting lipid profile with PCP [id number] MIGUEL SALAZAR MD CARDIOLOG Y [address] [place] [address] 04/19/2023 08:57:28 04/19/2023 12:59:26 Obesity 018544665 E66.9 patient's BMI today was = 34.1; recommend weight loss for beneficial effects on health. Coronary atherosclerosis 437746157 I25.10 patient with history of CAD, history of CABG-see HPI for detail; no new symptoms reported; exam is relatively unchanged from previous visit; continue with current medication s -enteric-c oated aspirin 81 mg p.o. daily, atenolol 50 mg 1 p.o. nightly, colestipol 1 g tablet p.o. twice daily Anxiety 87467029 F41.9 She reports much increased anxiety/st ress in her life recently due to the deaths of several friends. Hyperlipidemia 13998910 E78.5 continue with current medication s -colestipo l 1 g tablet p.o. twice daily, low cholestero l diet, and recommend fasting lipids at least yearly. Goal lipid profile: TC<=200, TG<=150, HDL>=40, LDL<=70. [id number] MIGUEL SALAZAR MD CARDIOLOG Y [address] [place] [address] 10/23/2023 13:19:59 10/23/2023 15:24:43 Coronary atherosclerosis 537389945 I25.10 patient with history of CAD, history of CABG-see HPI for detail; no new symptoms reported; exam is relatively unchanged from previous visit; continue with current medication s -enteric-c oated aspirin 81 mg p.o. daily, atenolol 50 mg 1 p.o. nightly, colestipol 1 g tablet p.o. twice daily EKG today -sinus bradycardi a, rate= 58, normal axis, QTc= 399 ms, likely old inferior AZ, inverted T waves noted in the inferior and anterolate ral leads. Cardiac exam today was benign. No new recommenda tions at this time Essential hypertension 92587800 I10 BP today was = 122/65 mmHg; continue with current med. -Atenolol 50 mg p.o. nightly patient is recommende d to check BPs at home periodical ly & bring BP log to next visit. A low sodium (< 2000 mg/day) diet is also recommende d. [id number] MIGUEL SALAZAR MD CARDIOLOG Y [address] [place] [address] 02/28/2024 14:13:45 02/28/2024 15:43:14 Essential hypertension 05056656 I10 BP today was = 120/68 mmHg; continue with current med. - Atenolol 50 mg p.o. nightly patient is recommende d to check BPs at home periodical ly & bring BP log to next visit. A low sodium (< 2000 mg/day) diet is also recommende d. Obesity 645523541 E66.9 patient's BMI today was = 34.0; recommend weight loss for beneficial effects on health. Coronary atherosclerosis 086549378 I25.10 patient with history of CAD, history of CABG-see HPI for detail; no new symptoms reported; exam is relatively unchanged from previous visit; continue with current medication s -enteric-c oated aspirin 81 mg p.o. daily, atenolol 50 mg 1 p.o. nightly, colestipol 1 g tablet p.o. twice daily. EKG (10/23/23) -sinus bradycardi a, rate= 58, normal axis, QTc= 399 ms, likely old inferior AZ, inverted T waves noted in the inferior and anterolate ral leads. Cardiac exam today was benign. No new recommenda tions at this time Palpitations 40387134 R0 0.2 The etiology of the patient's [...] the goal of reducing palpitatio n burden. [id number] MIGUEL SALAZAR MD CARDIOLOG Y [address] [place] [address] 04/24/2024 13:47:52 05/02/2024 11:17:54 Coronary atherosclerosis 557923626 I25.10 patient with history of CAD, history [...] axis, QTc= 399 ms, likely old inferior AZ, inverted T waves noted in the inferior and anterolate ral leads. EKG (04/26/24) - sinus bradycardi a with PACs, rate=58, normal axis, likely old inferior AZ, T wave inversions (V4-V6) - mentioned on 02/03 EKG report. Cardiac exam today was benign. No new recommenda tions at this time Essential hypertension 83322500 I10 BP today was = 124/66 mmHg; continue with current med. - Atenolol 50 mg p.o. nightly patient is recommende d to check BPs at home periodical ly & bring BP log to next visit. A low sodium (< 2000 mg/day) diet is also recommende d. Palpitations 98525818 R0 0.2 The etiology of the patient's [...] goal of reducing palpitatio n burden. Obesity 644086010 E66.9 patient's BMI today was = 34.4; recommend weight loss for beneficial effects on health. [id number] MIGUEL SALAZAR MD CARDIOLOG Y [address] [place] [address] 10/29/2024 12:55:01 10/29/2024 14:32:18 Coronary atherosclerosis 660858782 I25.10 patient with history of CAD, history [...] axis, QTc= 399 ms, likely old inferior AZ, inverted T waves noted in the inferior and anterolate ral leads. EKG (04/26/24) - sinus bradycardi a with PACs, rate=58, normal axis, likely old inferior AZ, T wave inversions (V4-V6) - mentioned on 02/03 EKG report. Cardiac exam today was benign. No new recommenda tions at this time Essential hypertension 10836513 I10 BP today was = 140/70 mmHg, HR=65 bpm; continue with current med. - Atenolol 50 mg p.o. nightly patient is recommende d to check BPs at home periodical ly & bring BP log to next visit. A low sodium (< 2000 mg/day) diet is also recommende d. Palpitations 57638218 R0 0.2 The etiology of the patient's [...] goal of reducing palpitatio n burden. Obesity 242191219 E66.9 patient's BMI today was = 34.4; recommend weight loss for beneficial effects on health. Gastroesop hageal reflux disease 869211334 K21.9 Patient reports that her chest discomfort [...] OF [place] (MEDICARE SUPPLEMENT[place] [id number] Gina Haas [id number] Gina Hector 04/25/2025 1 [place] Gina Hector [id number] Gina Hector 10/07/2020 2 [place] [id number] Gina Hector [id number] Gina Hector Notes Date Note Type [...] is reported as stable. MIGUEL SALAZAR MD [address] [place] [address], [phone], [facility] 04/19/2023 12:47:20 10/23/2023 text/html Ms. Hector is [...] graft angiography. This was carried [place] by [facility] on March 10 and revealed ostial RCA [...] a scheduled follow-up visit. MIGUEL SALAZAR MD [address] [place] [address], [phone], [facility] 10/23/2023 14:47:35 02/28/2024 text/html Ms. Hector is [...] graft angiography. This was carried out by [facility] on March 10, 2023, and revealed ostial [...] has been evaluated in the ER at [facility] on 01/15/2024 for chest pain. She was ruled out for ACS, and sent home. Since then, she reports occasional SOA/THOMPSON and chest discomfort as well as palpitations. She went to the ER twice more last month, and wonders if her recent symptoms were related to anxiety. Patient returns to the clinic today for a scheduled follow-up visit. MIGUEL SALAZAR MD [address] [place] [address], [phone], [facility] 02/28/2024 18:50:28 04/24/2024 text/html Ms. Hector is [...] graft angiography. This was carried out by [facility] on March 10, 2023, and revealed ostial [...] has been evaluated in the ER at [facility] on 01/15/2024 for chest pain. She was [...] a scheduled follow-up visit. MIGUEL SALAZAR MD [address] [place] [address], [phone], [facility] 04/26/2024 11:11:23 10/29/2024 text/html Ms. Hector is [...] has been evaluated in the ER at [facility] on 01/15/2024 for chest pain. She was [...] a scheduled follow-up visit. MIGUEL SALAZAR MD [address] [place] [address], [phone], [place] [facility] 10/29/2024 19:38:08 OBGyn Episode No OBEpisode recorded.
--- OUTSIDE RECORDS SUMMARY | 2025-05-11 05:42 | XMS_ITS | Encounter Summary ---
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 Pain was left sided that radiates across chest. Burning in nature. Slight nausea noted. Histroy of triple bypass. 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 Cathernie Pugh, RN - 01/08/2019 18:47 EST DCP [...] PNED ; Probability: 0 ; Diagnosis Code: [id number] ED Height and Weight Height Source : Stated Height Entry Format : [place] Height, Feet : 5 ft(Converted to: 152 cm, 60 Inch) Height, Inches : 2 Inch(Converted to: 0 ft 2 Inch, 5.08 cm) Clinical Height : 157.48 cm Weight Source, ED : Critical estimated dosing weight Weight Entry Format : [place] Weight, Pounds : 230 lb Clinical Dosing Weight : 104.55 kg Body Surface Area (BSA) : 2.03 m2 Body Mass Index : 42.2 kg/m2 (>HHI) [place] Body Weight (IBW) : 49.73 kg Catherine Pugh RN - 01/08/2019 18:47 EST documented in this encounter Plan of Treatment Not on file documented as of this encounter Visit Diagnoses Not on filedocumented in this encounter Care Teams Remnant Sorter Relationship Specialty Start Date End Date José Miguel Verde MD [address] [place] [id number] PCP - General Adolescent Medicine 03/07/23 documented as of this encounter
--- OUTSIDE RECORDS SUMMARY | 2025-05-11 05:42 | XMS_ITS | Encounter Summary ---
Author Organization [facility] [employer] Address [address] [place] [id number] Care Team Providers Care Business Teacher Name Role Phone José Miguel Verde MD Primary Care Provider + [phone] Encounter Details Date Type Department Care Team (Late st Contact Info) Description 01/08/[address] 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
--- OUTSIDE RECORDS SUMMARY | 2025-05-11 05:42 | XMS_ITS | Data Portability ---
Author Organization [facility] Address [address] [place] [address] Care Team Providers Care Crystal Gazer Name Role Phone FROILAN BAGLEY Hematology/Oncology MEGAN TOM [employer] Assessment No assessment recorded. Plan of Treatment [...] By Organization Details Last Modified Time 09/09/2019 [id number] gout: care instructions [email or web address] Not available 09/09/2019 09:47:00 thrombocytopenia : care instructions [email or web address] Not available 09/09/2019 09:47:00 body mass index: care instructions [email or web address] Not available 09/09/2019 09:47:00 Body Mass Index: Care Instructions-LC [email or web address] Not available 09/09/2019 09:46:59 learning about healthy weight Not available 09/09/2019 09:47:00 rheumatoid arthritis diet: care instructions [email or web address] Not available 09/09/2019 09:47:00 Rheumatoid Arthritis (RA): Care Instructions [email or web address] Not available 09/09/2019 09:47:00 Reason for Referral None Reported. Results Created Date Observation Date Name Description Value Unit Range Abnormal Flag Note LastModifiedBy Organization Detail LastModifiedTime 09/09/20 19 09/09/2019 CBC w/ auto diff white blood cells 5.7 K/uL 3.8-10 .8 normal Not Available [facility] [address] [place] [address], [address], 09/09/2019 10:28:34 09/09/20 19 09/09/2019 CBC w/ auto diff red blood cells 4.35 M/uL 3.80-5 .20 normal Not Available [facility] [address] [place] [address], [address], 09/09/2019 10:28:34 09/09/20 19 09/09/2019 CBC w/ auto diff hemoglobin 14.2 g/dL 12.0-1 6.0 normal Not Available [facility] [address] [place] [address], [address], 09/09/2019 10:28:34 09/09/20 19 09/09/2019 CBC w/ auto diff hematocrit 41.2 % 35.0-4 7.0 normal Not Available [facility] [address] [place] [address], [address], 09/09/2019 10:28:34 09/09/20 19 09/09/2019 CBC w/ auto diff MCV 95 fL 80-100 normal Not Available [facility] [address] [place] [address], [address], 09/09/2019 10:28:34 09/09/20 19 09/09/2019 CBC w/ auto diff MCH 33 pg 26-35 normal Not Available [facility] [address] [place] [address], [address], 09/09/2019 10:28:34 09/09/20 19 09/09/2019 CBC w/ auto diff MCHC 34 g/dL 32-36 normal Not Available [facility] [address] [place] [address], [address], 09/09/2019 10:28:34 09/09/20 19 09/09/2019 CBC w/ auto diff RDW 13.8 % 11.0-1 5.0 normal Not Available [facility] [address] [place] [address], [address], 09/09/2019 10:28:34 09/09/20 19 09/09/2019 CBC w/ auto diff MPV 9.2 fL 6.2-10 .5 normal Not Available [facility] [address] [place] [address], [address], 09/09/2019 10:28:34 09/09/20 19 09/09/2019 CBC w/ auto diff platelet count 128 K/uL 130-40 0 low Not Available [facility] [address] [place] [address], [address], 09/09/2019 10:28:34 09/09/20 19 09/09/2019 CBC w/ auto diff neutrophil,a bsolute 4.4 K/uL 1.6-8. 4 normal Not Available [facility] [address] [place] [address], [address], 09/09/2019 10:28:34 09/09/20 19 09/09/2019 CBC w/ auto diff lymphocyte,a bsolute 0.7 K/uL 0.4-5. 1 normal Not Available [facility] [address] [place] [address], [address], 09/09/2019 10:28:34 09/09/20 19 09/09/2019 CBC w/ auto diff monocyte,abs olute 0.5 K/uL 0.0-1. 2 normal Not Available [facility] [address] [place] [address], [address], 09/09/2019 10:28:34 09/09/20 19 09/09/2019 CBC w/ auto diff eosinophil,a bsolute 0.1 K/uL 0.0-0. 8 normal Not Available [facility] [address] [place] [address], [address], 09/09/2019 10:28:34 09/09/20 19 09/09/2019 CBC w/ auto diff basophil,abs olute 0.0 K/uL 0.0-0. 3 normal Not Available [facility] [address] [place] [address], [address], 09/09/2019 10:28:34 09/09/20 19 09/09/2019 CBC w/ auto diff % neutrophils 76.0 % 42.0-7 8.0 normal Not Available [facility] [address] [place] [address], [address], 09/09/2019 10:28:34 09/09/20 19 09/09/2019 CBC w/ auto diff % lymphocytes 12.6 % 11.0-4 7.0 normal Not Available [facility] [address] [place] [address], [address], 09/09/2019 10:28:34 09/09/20 19 09/09/2019 CBC w/ auto diff % monocytes 8.8 % 0.0-11 .0 normal Not Available [facility] [address] [place] [address], [address], 09/09/2019 10:28:34 09/09/20 19 09/09/2019 CBC w/ auto diff % eosinophils 1.9 % 0.0-7. 0 normal Not Available [facility] [address] [place] [address], [address], 09/09/2019 10:28:34 09/09/2009/09/2019 CBC w/ auto diff % basophils 0.7 % 0.0-3. 0 normal Not Available [facility] [address] [place] [address], [address], 09/09/2019 10:28:34 09/09/20 19 09/09/2019 CBC w/ auto diff nucleated red cells 0.0 % 0.0-0. 9 normal Not Available [facility] [address] [place] [address], [address], 09/09/2019 10:28:34 09/09/20 19 09/09/2019 CBC w/ auto diff nucleated RBCs, absolute 0.00 K/uL not estab. normal Not Available [facility] [address] [place], [address], 09/09/2019 10:28:34 09/09/2009/09/2019 ldh, serum or plasm a LDH 248 U/L 135-21 4 high Not Available [facility] [address] [place], [address], 09/09/2019 11:26:41 09/09/2009/09/2019 vitam in B12 + folat e, serum or blood folic acid 18.4 NG/mL 4.8-24 .2 normal Not Available [facility] [address] [place], [address], 09/09/2019 11:43:22 09/09/20 19 09/09/2019 vitam in B12 + folat e, serum or blood vitamin B12 718 pg/mL 232-12 45 normal Not Available [facility] [address] [place], [address], 09/09/2019 11:43:22 09/09/2009/19/2019 JAYDEN (anti nucle ar [...] Patte rns (http s://d oi.or g/10. 1515/ [facility]- 2017- 0052) For addit ional infor roxanna monge refer to http: //sandip Barrientosia jovanni ics.c om/fa q/FAQ 177 (This link is being provi ded for infor david darnell/ educa sidney l purpo ses only. ) TEST PERFO RMED AT: [facility] [address] [place] [address] WHIT Carranza MD Not Available [facility] [address] [place] [address], [address], 09/19/2019 16:56:22 04/20/20 20 04/20/2020 CBC w/ auto diff white blood cells 5.9 K/uL 3.8-10 .8 normal Not Available [facility] [address] [place] [address], [address], 04/20/2020 11:52:50 04/20/20 20 04/20/2020 CBC w/ auto diff red blood cells 4.40 M/uL 3.80-5 .20 normal Not Available [facility] [address] [place] [address], [address], 04/20/2020 11:52:50 04/20/2004/20/2020 CBC w/ auto diff hemoglobin 14.5 g/dL 12.0-1 6.0 normal Not Available [facility] [address] [place] [address], [address], 04/20/2020 11:52:50 04/20/2004/20/2020 CBC w/ auto diff hematocrit 42.0 % 35.0-4 7.0 normal Not Available [facility] [address] [place] [address], [address], 04/20/2020 11:52:50 04/20/20 20 04/20/2020 CBC w/ auto diff MCV 96 fL 80-100 normal Not Available [facility] [address] [place] [address], [address], 04/20/2020 11:52:50 04/20/20 20 04/20/2020 CBC w/ auto diff MCH 33 pg 26-35 normal Not Available [facility] [address] [place] [address], [address], 04/20/2020 11:52:50 04/20/20 20 04/20/2020 CBC w/ auto diff MCHC 34 g/dL 32-36 normal Not Available [facility] [address] [place] [address], [address], 04/20/2020 11:52:50 04/20/20 20 04/20/2020 CBC w/ auto diff RDW 13.6 % 11.0-1 5.0 normal Not Available [facility] [address] [place] [address], [address], 04/20/2020 11:52:50 04/20/20 20 04/20/2020 CBC w/ auto diff MPV 9.0 fL 6.2-10 .5 normal Not Available [facility] [address] [place] [address], [address], 04/20/2020 11:52:50 04/20/20 20 04/20/2020 CBC w/ auto diff platelet count 132 K/uL 130-40 0 normal Not Available [facility] [address] [place] [address], [address], 04/20/2020 11:52:50 04/20/20 20 04/20/2020 CBC w/ auto diff neutrophil,a bsolute 3.9 K/uL 1.6-8. 4 normal Not Available [facility] [address] [place] [address], [address], 04/20/2020 11:52:50 04/20/20 20 04/20/2020 CBC w/ auto diff lymphocyte,a bsolute 1.3 K/uL 0.4-5. 1 normal Not Available [facility] [address] [place] [address], [address], 04/20/2020 11:52:50 04/20/20 20 04/20/2020 CBC w/ auto diff monocyte,abs olute 0.6 K/uL 0.0-1. 2 normal Not Available [facility] [address] [place] [address], [address], 04/20/2020 11:52:50 04/20/20 20 04/20/2020 CBC w/ auto diff eosinophil,a bsolute 0.1 K/uL 0.0-0. 8 normal Not Available [facility] [address] [place] [address], [address], 04/20/2020 11:52:50 04/20/20 20 04/20/2020 CBC w/ auto diff basophil,abs olute 0.1 K/uL 0.0-0. 3 normal Not Available [facility] [address] [place] [address], [address], 04/20/2020 11:52:50 04/20/20 20 04/20/2020 CBC w/ auto diff % neutrophils 65.0 % 42.0-7 8.0 normal Not Available [facility] [address] [place] [address], [address], 04/20/2020 11:52:50 04/20/20 20 04/20/2020 CBC w/ auto diff % lymphocytes 21.6 % 11.0-4 7.0 normal Not Available [facility] [address] [place] [address], [address], 04/20/2020 11:52:50 04/20/20 20 04/20/2020 CBC w/ auto diff % monocytes 10.0 % 0.0-11 .0 normal Not Available [facility] [address] [place] [address], [address], 04/20/2020 11:52:50 04/20/20 20 04/20/2020 CBC w/ auto diff % eosinophils 2.5 % 0.0-7. 0 normal Not Available [facility] [address] [place] [address], [address], 04/20/2020 11:52:50 04/20/20 20 04/20/2020 CBC w/ auto diff % basophils 0.9 % 0.0-3. 0 normal Not Available [facility] [address] [place] [address], [address], 04/20/2020 11:52:50 04/20/20 20 04/20/2020 CBC w/ auto diff nucleated red cells 0.1 % 0.0-0. 9 normal Not Available [facility] [address] [place] [address], [address], 04/20/2020 11:52:50 04/20/20 20 04/20/2020 CBC w/ auto diff nucleated RBCs, absolute 0.00 K/uL not estab. normal Not Available [facility] [address] [place] [address], [address], 04/20/2020 11:52:50 04/20/20 20 04/20/2020 CMP, serum or plasm a glucose 109 mg/dL 74-100 high Not Available [facility] [address] [place] [address], [address], 04/20/2020 12:16:18 04/20/20 20 04/20/2020 CMP, serum or plasm a blood urea nitrogen 24 mg/dL 6-20 high Not Available [facility] [address] [place] [address], [address], 04/20/2020 12:16:18 04/20/20 20 04/20/2020 CMP, serum or plasm a creatinine 1.07 mg/dL 0.50-0 .95 high Not Available [facility] [address] [place] [address], [address], 04/20/2020 12:16:18 04/20/20 20 04/20/2020 CMP, serum or plasm a BUN/creatini ne ratio 22 (calc ) 10-20 high Not Available [facility] [address] [place] [address], [address], 04/20/2020 12:16:18 04/20/20 20 04/20/2020 CMP, serum or plasm a sodium 143 mmol/ L 136-14 5 normal Not Available [facility] [address] [place] [address], [address], 04/20/2020 12:16:18 04/20/20 20 04/20/2020 CMP, serum or plasm a potassium 4.3 mmol/ L 3.4-5. 0 normal Not Available [facility] [address] [place] [address], [address], 04/20/2020 12:16:18 04/20/20 20 04/20/2020 CMP, serum or plasm a chloride 107 mmol/ L 98-107 normal Not Available [facility] [address] [place] [address], [address], 04/20/2020 12:16:18 04/20/20 20 04/20/2020 CMP, serum or plasm a carbon dioxide 24 mmol/ L 20-32 normal Not Available [facility] [address] [place] [address], [address], 04/20/2020 12:16:18 04/20/20 20 04/20/2020 CMP, serum or plasm a anion gap 12 (calc ) 7-25 normal Not Available [facility] [address] [place] [address], [address], 04/20/2020 12:16:18 04/20/20 20 04/20/2020 CMP, serum or plasm a calcium 9.7 mg/dL 8.6-10 .2 normal Not Available [facility] [address] [place] [address], [address], 04/20/2020 12:16:18 04/20/20 20 04/20/2020 CMP, serum or plasm a total protein 7.0 g/dL 6.4-8. 3 normal Not Available [facility] [address] [place] [address], [address], 04/20/2020 12:16:18 04/20/20 20 04/20/2020 CMP, serum or plasm a albumin 4.4 g/dL 3.5-5. 2 normal Not Available [facility] [address] [place] [address], [address], 04/20/2020 12:16:18 04/20/20 20 04/20/2020 CMP, serum or plasm a globulin 2.6 g/dL_ (calc ) 1.5-4. 5 normal Not Available [facility] [address] [place] [address], [address], 04/20/2020 12:16:18 04/20/2004/20/2020 CMP, serum or plasm a albumin/glob ulin ratio 1.7 (calc ) 1.1-2. 5 normal Not Available [facility] [address] [place] [address], [address], 04/20/2020 12:16:18 04/20/20 20 04/20/2020 CMP, serum or plasm a bilirubin, total 0.7 mg/dL 0.1-1. 2 normal Not Available [facility] [address] [place] [address], [address], 04/20/2020 12:16:18 04/20/20 20 04/20/2020 CMP, serum or plasm a alkaline phosphatase 71 U/L 35-105 normal Not Available [facility] [address] [place] [address], [address], 04/20/2020 12:16:18 04/20/20 20 04/20/2020 CMP, serum or plasm a AST 26 U/L 0-32 normal Not Available [facility] [address] [place] [address], [address], 04/20/2020 12:16:18 04/20/20 20 04/20/2020 CMP, serum or plasm a ALT 21 U/L 0-33 normal Not Available [facility] [address] [place], [address], 04/20/2020 12:16:18 04/20/20 20 04/20/2020 CMP, serum or plasm a GFR 59 >= 60 abnormal Not Available [facility] [address] [place], [address], 04/20/2020 12:16:18 04/20/20 20 04/20/2020 CMP, serum [...] month s or longe r. Not Available [facility] [address] [place], [address], 04/20/2020 12:16:18 09/11/20 19 09/11/2019 US, abdom en, limit ed [facility] [address] [place] [address] Patien t Name: GINA Carranza Patien t [...] Jason Man MD on 2018 9:[email or web address] [place] [address] Radiology [facility] [address] [place], [address], 09/23/2019 15:38:59 Result Notes None recorded. Procedures Surgical History Date Name Laterality Status Provider Name and Address Organization Details Recorded Time CABG completed Salma Billings [facility] 09/09/2019 09:08:09 Cholecystectomy completed Salma Billings [facility] 09/09/2019 09:08:17 [facility] 09:08:34 Back Surgery completed Salmarik Billings [facility] 09/09/2019 09:08:47 wrist repair completed Salma Billings [facility] 09/09/2019 09:09:41 debridement of leg ulcer completed Salma Billings [facility] 09/09/2019 09:10:18 Imaging Results None recorded. Procedure Notes None recorded. Medical Equipment None Reported. Allergies Allergen ID Allergen Name Allergen Category Reaction Reaction Severity Criticality Documentation Date Start Date Code Code System Note Provider Name and Address Organization Details Recorded Time 760156 Motrin medicatio n itching Not available Not available 09/09/201903102 8 [facility] 09:01:45 360465 Product containin g penicilli n (product) medicatio n rash Not available Not available 09/09/2019 09356 8001 SNOMED Salma Billings [facility] 9 09:01:54 Medications Name Sig Start Date Stop Date Status Note LastModified by Organization Details LastModified Time Plaquenil 200 mg tablet Take 1 tablet twice a day by oral route. active Not Available Not Available No t Available vitamin D04-lavsyct B1 1,000 mcg-100 mg/mL injection solution Take [...] Updated DateTime 04/20/2020 98.6 [degF] Norma Salcido [facility] 0 04/20/2020 12:51:11 Date Recorded Body height Body mass index (BMI) Body weight Heart rate Oxygen saturation Oxygen saturation in Arterial blood by Pulse oximetry Systolic blood pressure Diastolic blood pressure Provider Name and Address Organization Details Last Updated DateTime 0 157.48 cm 40.5 kg/m2 465133. 01 g 63 /min 97 % 97 % 130 mm[Hg] 72 mm[Hg] [facility] 0 13:02:17 Date Recorded Body weight Body mass index (BMI) Body height Heart rate Oxygen saturation Oxygen saturation in Arterial blood by Pulse oximetry Body temperature Systolic blood pressure Diastolic blood pressure Provider Name and Address Organization Details Last Updated DateTime 9 826438. 08 g 41.2 kg/m2 157.48 cm 65 /min 96 % 96 % 98.9 [degF] 122 mm[Hg] 62 mm[Hg] [facility] 9 09:19:53 Date Recorded Body height Heart rate Body temperature Body mass index (BMI) Body weight Systolic blood pressure Diastolic blood pressure Provider Name and Address Organization Details Last Updated DateTime 9 157.48 cm 68 /min 99.1 [degF] 41.4 kg/m2 672124. 63 g 136 mm[Hg] 66 mm[Hg] Yessi King [facility] 9 15:09:42 Social History Question Answer Notes LastModified by Organizat ion Details LastModified Time Tobacco Smoking Status Never Smoker Yessi iKng [facility] 09/23/2019 15:10:42 How Much Tobacco Do You Chew? None [email or web address] Information not available 09/23/2019 Live Alone Or With Others? Alone Information not available 09/23/2019 Exposure To Smoke No [email or web address] Information not available 09/23/2019 Marital Status [email or web address] Informatio n not available 09/23/2019 What Was The Date Of Your Most Recent Tobacco Screening? 09/23/2019 [email or web address] Information not available 09/23/2019 How Many Children Do You Have? 1 Son 23 Years Ago [email or web address] Information not available 09/23/2019 How Much Tobacco Do You Smoke? No Information not available 04/20/2020 On What Date Was Tobacco Cessation Counseling Provided? 09/23/2019 Information not available 09/23/2019 How Many Years Have You Smoked Tobacco? 0 Information not available 04/20/2020 Sex: Female Functional Status Question Answer Note LastModified by Organizat ion Details LastModified Time What is your level of alcohol consumption? None Information not available 09/23/2019 Do you or have you ever used smokeless tobacco? Never used smokeless tobacco [email or web address] Information not available 09/23/2019 What is your occupation? Retired [email or web address] Information not available 09/23/2019 Do you or have you ever used e-cigarettes or vape? Never used electronic cigarettes [email or web address] Information not available 09/23/2019 Mental Status None [...] Response Depression Y Arthritis Y Heart Attack (DE) Y Heart Disease Y Gynecological HistoryNo gynecological history recorded. Obstetrics History GPAL:G 0 P 0 0 0 0 Past Encounters Encounter ID Performer Location Encounter Start Date Encounter Closed Date Diagnosis/Indication Diagnosis SNOMED-CT Code Diagnosis ICD10 Code Diagnosis Note [id number] JASON WEISS MD CARDIOLOG Y [facility] [address] [place] [address] ,[address] [place] [address] 04/03/2017 13:10:27 04/03/2017 13:49:50 [id number] JASON WEISS MD [address]ARDIOLOG Y [address] [place] [id number] 09/25/2017 12:53:34 09/25/2017 14:36:54 [id number] JASON WEISS MD CARDIOLOG Y [address] [place],[address] [place], [place] [address] 5 04/02/2018 09:28:26 04/02/2018 11:01:03 [id number] JASON WEISS MD CARDIOLOG Y [address] [place], [place] [address] 10/22/2018 13:48:50 10/22/2018 15:10:00 [id number] JASON WEISS MD CARDIOLOG Y [place] [address] [place] [id number] 02/07/2019 11:09:23 02/07/2019 13:35:19 [id number] JASON WEISS MD CARDIOLOG Y [address] ,[address] [place], [place] [phone] 05/08/2019 13:19:05 05/08/2019 13:58:46 [id number] FROILAN BAGLEY MD HEM/ONC SB CLOSED [address] [place] [id number] 1 09/09/2019 08:55:56 09/09/2019 09:56:44 Rheumatoid arthritis 53711784 M06.[address] Tom. Pt is on plaquenil and cevimeline . Gout 85649077 M10.9 Pt has begun colchicine . Body mass index 30+ - obesity 749907600 Z68.41 Encourage exercise and weight loss. Leukopenia 02069670 D72. 819 Differenti al includes for this and thrombocyt openia include vitamin deficiency , Felty's syndrome as well as LGL. Also, worrisome for another autoimmune such s lupus. Medication effect including colchicine and plaquenil. We will obtain here flow cytometry, CBC, LDH, JAYDEN, splenic US, B12/folate . Thrombocyt openic disorder 108728420 D69.6 As above. [id number] FROILAN BAGLEY MD HEM/ONC SB CLOSED [address] [place], [place] [phone] 09/23/2019 14:46:58 09/23/2019 15:53:02 Leukopenia 78639420 D72.819 Differenti al includes for this and [...] dilatation most likely secondary to cholecyste ctomy. [id number] JASON WEISS MD CARDIOLOG Y [address] [place], [place] [phone] 10/24/2019 12:38:41 10/24/2019 13:57:59 [id number] FROILAN BAGLEY MD HEM/ONC SB CLOSED [address] COUNTS INCLUDE [address] [facility]S [address] [facility] [address] [place] [id number] 04/20/2020 12:49:16 04/20/2020 13:27:21 Leukopenia 21191962 D72.819 Labs today are normal. This has [...] dilatation most likely secondary to cholecyste ctomy. [id number] JASON WEISS MD CARDIOLOG Y [place] [address] [place], [place] [phone] 05/04/2020 13:42:38 05/04/2020 14:45:16 [id number] JASON WEISS MD CARDIOLOG Y [address] [place], [place] [phone] 11/23/2020 14:04:41 11/23/2020 15:54:54 [id number] JASON WEISS MD CARDIOLOG Y [address] [place],[address] [place], [place] [phone] 04/22/2021 10:16:00 04/22/2021 10:42:04 [id number] YELENA GARCIA PA-C CARDIOLOG Y [address] ,[address] [place] [address] 5 10/20/2021 13:30:08 10/20/2021 15:19:47 [id number] YELENA GARCIA PA-C CARDIOLOG Y [address] ,[address] [place] [address] 5 04/25/2022 13:10:58 04/25/2022 14:17:13 [id number] YELENA GARCIA PA-C CARDIOLOG Y [address] ,[address] [place] [address] 5 10/25/2022 13:07:16 10/25/2022 14:19:06 [id number] MIGUEL SALAZAR MD CARDIOLOG Y SB [address] [place] [address] 1 04/19/2023 08:57:28 04/19/2023 12:59:26 [id number] MIGUEL SALAZAR MD CARDIOLOG Y SB [address] [place] [address] 1 10/23/2023 13:19:59 10/23/2023 15:24:43 [id number] MIGUEL SALAZAR MD CARDIOLOG Y SB [address] [place] [address] 1 02/28/2024 14:13:45 02/28/2024 15:43:14 [id number] MIGUEL SALAZAR MD CARDIOLOG Y SB [address] [place] [address] 1 04/24/2024 13:47:52 05/02/2024 11:17:54 [id number] MIGUEL SALAZAR MD CARDIOLOG Y SB [address] [place] [address] 1 10/29/2024 12:55:01 10/29/2024 14:32:18 Health Concerns [...] OF [place]IC[place] [id number] Gina Hector [id number] Gina Hector 04/25/2025 1 [place] Gina Hector [id number] Gina Hector 10/07/2020 2 [place] [id number] Gina Hector [id number] Gina Hector Notes Date Note Type Note Provider Name and Address Organization Details Recorded Time 9 text/html HPIReported bypatient.Advanced Directives / [employer] AuthorizationsAdvanced Directives? YES Dischargedischarge disposition stable Distress ScreeningHas the distress screening been completed in the last 45 days? YES; Distress level 5 Practical Problemsno practical problems Family Problemsno family problems Emotional Problemsdepression; anxiety Spiritual/Religiousspiritua l/quaker problems? NO Physical Problemsno physical problems Nutrition [...] ROS per intake note. FROILAN BAGLEY MD [facility] [place], [id number], [facility] 09/09/2019 09:47:03 9 text/html [place] HPIReported bypatient.Distress ScreeningHas the distress screening been completed in the last 45 days? YES; Distress level 3 Practical Problemshousing stress;financial/insurance stress;transportation stress Family Problemsfamily health issue Emotional Problemsdepression;nervousn ess;worry Spiritual/Religiousspiritua l/quaker problems? NO Physical Problemsdiarrhea;eating/ing estion problem;fatigue Nutrition [...] polyps, diverticulosis per pt. FROILAN BAGLEY MD [address] [place] [address], [phone], [facility] 09/23/2019 15:46:20 0 text/html HPIReported bypatient.Advanced Directives / [employer] AuthorizationsAdvanced Directives? NO Dischargedischarge disposition stable Distress ScreeningHas the distress screening been completed in the last 45 days? YES; Distress level 3 Practical Problemsno practical problems;transportation stress Family Problemsno family problems Emotional Problemsdepression;fears;ne rvousness;sadness;worry Spiritual/Religiousspiritua l/quaker problems? NO Physical Problemseating/ingestion problem;fatigue;feeling swollen Nutrition [...] care of Dr. Perez. FROILAN BAGLEY MD [address] [place] [address] [place], [phone], [place] [facility] 04/20/2020 13:19:58 OBGyn Episode No OBEpisode recorded.
--- OUTSIDE RECORDS SUMMARY | 2025-05-11 05:42 | XMS_ITS | Encounter Summary ---
Author Organization [facility] [employer] In iatives Address [address] [place] [address] Care Team Providers Care Professor Of Communication Name Role Phone José Miguel Verde MD Primary Care Provider + [phone] Encounter Details Date Type Department Care Team (Late st Contact Info) Description 07/15/2020 Transcribed Document [facility] [place] [address] [place] [address] ProviderNitin MD [address] [place] [address] Social History Tobacco Use Types Packs/Day Years [...] 07/15/2020 16:41 EDT Electronically signed by Drew [facility] Conversion Pattern Fitter Cerner at 02/26/2023 11:11 PM CDT documented in this encounter Plan of Treatment Not on file documented as of this encounter Visit Diagnoses Not on filedocumented in this encounter Care Teams Professor Of Communication Relationship Specialty Start Date End Date José Miguel Verde MD [address] [place] [address] PCP - General Adolescent Medicine 03/07/23 documented as of this encounter
--- OUTSIDE RECORDS SUMMARY | 2025-05-11 05:42 | XMS_ITS | Clinical Summary ---
Author Organization [employer] In [employer]atives Address [address] [place] [address] Care Team Providers Care Golf Ball Cover Treater Name Role Phone José Miguel Verde MD Primary Care Provider + [phone] Allergies Active Allergy Reactions Criticality Noted Date [...] by mouth in the morning. Active pancrelipase, Frm-Qeqd-Nskt, (CREON) 36,000-114,000 - 180,000 unit CpDR capsule [...] Date Hamilton rded Speak language other than Azeri at home Not on file 12/01/2023 Want [...] Pneumococcal 50+ years Completed 01/04/2018, 2016 Insurance MEDICARE PART A B SUPP Advance Directives For more information, please contact: [phone] * Full Code (Latest Code Status on File) Date Activated Date Inactivated Comments 03/10/2023 5:00 PM 03/11/2023 12:05 PM * Full Code Date Activated Date Inactivated Comments 03/07/2023 2:51 PM 03/10/2023 5:00 PM Care Teams Golf Ball Cover Treater Relationship Specialty Start Date End Date José Miguel Verde MD [address] [place] [address] PCP - General Adolescent Medicine 03/07/23
--- OUTSIDE RECORDS SUMMARY | 2025-05-11 05:42 | XMS_ITS | Encounter Summary ---
Author Organization [employer] In [employer]atives Address [address] [place] [address] Care Team Providers Care Machine Cell Tuber Name Role Phone José Miguel Verde MD Primary Care Provider + [phone] Encounter Details Date Type Department Care Team (Late st Contact Info) Description 07/15/2020 Transcribed Document [facility] [place] [address] [place] [address] ProviderNitin MD [address], [place] [id number] Social History Tobacco Use Types Packs/Day Years [...] Source Stated Height Entry Format Beryl Height/Length, [place] (ft) 5 ft Height/Length [place] 2 Inch CLINICALHEIGHT 157.48 cm [place] Body Weight 49.73 kg Weight Source, ED Critical estimated dosing weight Weight Entry Format [place] Weight [place]is[place] lb 222 lb CLINICALWEIGHT 100.91 kg Body [...] Triage: ED C-SSRS: ED Clinical Reconciliation: ED 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 Radiology results: Radiology Results (Last 48 hours) [id number] -- 07/15/2020 11:47 CR Chest 1 Vw [...] on filedocumented in this encounter Care Teams Machine Cell Tuber Relationship Specialty Start Date End Date José Miguel Verde MD [address] [place] [address] PCP - General Adolescent Medicine 03/07/23 documented as of this encounter
--- OUTSIDE RECORDS SUMMARY | 2025-05-11 05:42 | XMS_ITS | Encounter Summary ---
Author Organization [facility] In iatives Address [address] [place] [address] Care Team Providers Care Figurine Maker Name Role Phone José Miguel Verde MD Primary Care Provider + [phone] Encounter Details Date Type Department Care Team (Late st Contact Info) Description 07/15/2020 Transcribed Document [facility] [place] [address] [place] [address] ProviderNitin MD [address] [place] [address] Social History Tobacco Use Types Packs/Day Years [...] Communication Barrier : None Primary Language : [place] Any Spiritual/Cultural Needs or Requests : No [...] 07/15/2020 12:20 EDT Electronically signed by Drew [facility] Conversion Career Law Clerk Cerner at 02/26/2023 11:14 PM CDT documented in this encounter Plan of Treatment Not on file documented as of this encounter Visit Diagnoses Not on filedocumented in this encounter Care Teams Figurine Maker Relationship Specialty Start Date End Date José Miguel Verde MD [address] [place] [address] PCP - General Adolescent Medicine 03/07/23 documented as of this encounter
--- OUTSIDE RECORDS SUMMARY | 2025-05-11 05:42 | XMS_ITS | Encounter Summary ---
Author Organization [facility] [employer] In iatives Address [address] [place] [address] Care Team Providers Care Institutional Aide Name Role Phone José Miguel Verde MD Primary Care Provider + [phone] Encounter Details Date Type Department Care Team (Late st Contact Info) Description 07/15/2020 Transcribed Document [facility] [place] Family Medicine [address] [place] [address] ProviderNitin MD [address] [place], [place] [phone] Social History Tobacco Use Types Packs/Day Years [...] 4:17 PM CDT Electronically signed by Drew [facility] Conversion Radiographer Cerner at 02/26/2023 10:51 PM CDT documented in this encounter Plan of Treatment Not on file documented as of this encounter Visit Diagnoses Not on filedocumented in this encounter Care Teams Institutional Aide Relationship Specialty Start Date End Date José Miguel Verde MD [address] [place] [address] PCP - General Adolescent Medicine 03/07/23 documented as of this encounter
[2025-05-11 05:48] LABS: VBG HCO3 20.6 mmol/L (23-30); VBG PCO2 21.2 mmol/L (35-51); VBG PH 7.61 mmol/L (7.31-7.41); VBG PO2 173.3 mmol/L (28-40)
[2025-05-11 05:49] LABS: Lactate Venous 3.0 mmol/L (0.4-2.0)
--- NOTE | 2025-05-11 06:00 | PC.NURSE ---
Report called to KIRSTEN Lane
--- NOTE | 2025-05-11 06:35 | P.HP_ITS ---
<Statement entered by Huy Gallegos MD - 05/11/25 19:26> Rounded on patient after nurse practitioner. Personally examined and interviewed patient. Agree with exam findings and care plan as documented. Blood gas on arrival showed alkalosis with pH 7.6, pCO2 21. Repeat obtained today with pH 7.5, CO2 still low 20s. Still feeling anxious. Will initiate Xanax 3 times a day 0.5 mg. Cardiology to evaluate in the morning. Kidney function normal with BUN 21, creatinine 1.0. Repeat CBC, CMP, magnesium ordered for the morning. History of Present Illness *Admission Date: 05/11/25 *Reason for visit:: Chest pain *History of present illness: Ms. Cruz is a 79-year-old female presents ER with complaints of chest pain. Patient has past medical history of coronary artery disease, hypertension, hyperlipidemia, GERD, pancreatitis, diverticulitis, and M?ni?re's disease. Patient states that Monday she had some chest pain that radiated to her left arm. She states her neighbor came over and they talked and she was able to calm down. She states that 0400 this morning she had the same type of chest pain rating to left shoulder. She states the pain is constant but is unable to describe it. She states it is in her left chest. She reports diaph oresis. She states she breaks out in a sweat with exertion. She reports some dizziness and nausea here in the ER. She states she just has not been feeling good all this week. She does admit to some increased anxiety lately. She states she worries about not being able to do what she wants to do due to illness. Patient denies fever/chills, cough, congestion, runny nose, dyspnea, vomiting, diarrhea, constipation, headache, lightheadedness, or syncope. Alem, ER provider reports that patient took 2 325 mg aspirins last night and she received nitro by EMS prior to arrival. She reports pain had went from 7/10 - 5/10. She states she gave her a second nitro and her pain went down to a 2 out of 10. [facility] Disclaimer: The information contained in this section may have been updated after the patient was seen, as this information can be updated by other users. Medical History Pancreatitis Hyperlipidemia Hypertension Rheumatoid arthritis Osteoarthritis Hemorrhoids Heart disease Gout GERD (gastroesophageal reflux disease) Colon polyps Colitis CAD (coronary artery disease) History of blood transfusion Surgical History H/O left wrist surgery History of right hip replacement History of cholecystectomy History of back surgery Hx of CABG H/O right wrist surgery Family History Father Cancer Social History Smoking Status: Never smoker alcohol intake: never substance use type: denies use current occupational status: retired Travel in the last 8 weeks?: None caffeine: Yes Other Medical History Have you received the Flu Vaccine for this season: Yes Have you received the Pneumonia Vaccine: Yes Review of Systems Constitutional Constitutional: Denies chills, Denies fever(s) and Denies headache(s) ENT Ears, Nose, Mouth, and Throat: Reports dizziness, Denies headache(s), Reports nasal discharge and Reports sinus pressure *Cardiovascular Cardiovascular: Denies dyspnea and Denies lightheadedness *Respiratory Respiratory: Denies cough and Denies dyspnea *Gastrointestinal Gastrointestinal: Denies constipation, Denies loose stools, Reports nausea and Denies vomiting *Genitourinary Genitourinary: Reports system reviewed and no additional complaints, except as documented *Musculoskeletal Musculoskeletal: Reports system reviewed and no additional complaints, except as documented *Neurologic Neurologic: Reports dizziness and Denies headache(s) Meds Home Medications and Allergies Home Medications ?Medication ?Instructions ?Recorded ?Confirmed ?Type alprazolam 0.25 mg tablet 0.25 mg PO TIDP PRN Anxiety 01/06/19 05/11/25 History atorvastatin 10 mg tablet (Lipitor) 10 mg PO HS Choles terol 01/06/19 05/11/25 History cevimeline 30 mg capsule 30 mg PO TID dry mouth 01/0605/11/25 History colchicine 0.6 mg tablet 0.6 mg PO DAILY gout 9 05/11/25 History hydroxychloroquine 200 mg tablet 200 mg PO BID Arthrit is 01/06/19 05/11/25 History nitroglycerin 0.4 mg sublingual 0.4 mg sublingual Q5MI BUSINESS PLANNING ANALYST PRN Chest 08/30/19 05/11/25 History tablet Pain aspirin 81 mg tablet,delayed 81 mg PO DAILY heart heal th 01/04/20 05/11/25 History release atenolol 50 mg tablet 50 mg PO DAILY Hypertension 01/04/20 05/11/25 History cyclosporine 0.05 % eye drops in a 1 drp ophthalmic (e ye) DAILY dry 01/04/20 05/11/25 History dropperette (Restasis) eyes potassium chloride 20 mEq 20 meq PO DAILY #30 tabs 07/0605/11/25 Rx tablet,extended release cyanocobalamin (vitamin B-12) 1,000 mcg IM MONTHLY 08/0605/11/25 History 1,000 mcg/mL injection solution vonoprazan 20 mg tablet (Voquezna) 20 mg PO DAILY #90 tabs 09/23/24 05/11/25 Rx cholecalciferol (vitamin D3) 125 125 mcg PO DAILY 04/0605/11/25 History mcg (5,000 unit) capsule colestipol 1 gram tablet 1 g PO ONCE Cholesterol 04/0605/11/25 History furosemide 20 mg tablet 20 mg PO DAILY PRN Fluid 04/0605/11/25 History vibegron 75 mg tablet (Gemtesa) 75 mg PO DAILY 05/11/25 History calcium polycarbophil 625 mg 625 mg PO DAILY 03/24/25 05/11/25 History tablet (FiberCon) akmrfb-cbmfylwv-fdxfaml 1 cap PO AC PANCREATIC 03/2605/11/25 History 36,000-114,000-180,000 unit INSUFFICIENCY capsule,delay rel (Creon) cetirizine 10 mg capsule (Zyrtec) 10 mg PO DAILY PRN a llergy 05/04/25 05/11/25 R x symptoms #14 caps fluticasone furoate 27.5 1 spray intranasal DAILY #5. 9 mL 05/04/25 05/11/25 Rx mcg/actuation nasal spray,suspension ondansetron HCl 4 mg tablet 4 mg PO Q8H PRN nausea and 05/05/25 05/11/25 Rx vomiting 4 days #14 tabs New Prescriptions to Start Prescriptions: Allergies Allergy/AdvReac Type Severity Reaction Status Date / Time Penicillins Allergy Intermediate Rash Verified 03/26/25 10:11 ibuprofen (From Motrin) Allergy Mild Rash Verified 03/26/25 10:11 sulfamethoxazole (From Allergy Unknown Verified 03/26/25 10:11 Bactrim) allergy reaction trimethoprim (From Bactrim) Allergy Unknown Verified 03/26/25 10:11 allergy reaction Exam Data for Last 24 hours Vital signs and Labs for Last 24 Hours: Temp Pulse Resp BP Pulse Ox O2 Del Method 98.0 F 48 L 15 133/66 97 Room Air 05/11/25 06:23 05/11/25 06:23 05/11/25 06:23 05/11/25 06:23 05/11/25 05:30 05/11/25 06:23 Laboratory Results - last 24 hr 05/11/25 04:21: WBC 5.1, RBC 4.27, Hgb 14.0, Hct 41.0, MCV 96.0, MCH 32.8 H, MCHC 34.1, RDW 12.9, Plt Count 133 L, MPV 11.9 H, Neut % (Auto) 67.6, Lymph % (Auto) 21.7, [place] % (Auto) 9.1, Eos % (Auto) 1.0, Baso % (Auto) 0.2, Neut # (Auto) 3.4, Lymph # (Auto) 1.1, [place] # (Auto) 0.5, Eos # (Auto) 0.1, Baso # (Auto) 0.0, PT 11.4, INR 1.03, D-Dimer 0.46, Sodium 141, Potassium 3.9, Chloride 104, Carbon Dioxide 27, Anion Gap 13.9, BUN 21 H, Creatinine 1.00, Estimated GFR 54 L, Est GFR ( Amer) 65, Glucose 93, Calcium 9.5, Total Bilirubin 1.4 H, AST 43 H, ALT 31, Alkaline Phosphatase 67, Troponin I 0.02, NT-Pro-B Natriuret Pep 926 H, Total Protein 7.1, Albumin 4.7, Globulin 2.4, Albumin/Globulin Ratio 2.0 H 05/11/25 05:25: VBG pH 7.61 H, VBG pCO2 21.2 L, VBG pO2 173.3 H, VBG HCO3 20.6 L , VBG Total CO2 21.3 L, VBG O2 Saturation 99.0 H, VBG Base Excess -0.8, VBG Lactic Acid 3.0 H I & O for Last 24 hours: Intake & Output 05/08/25 05/09/25 05/10/25 05/11/25 23:59 23:59 23:59 23:59 Weight 85.275 kg *Routine HEENT Exam Head: Present normocephalic and atraumatic Eye: Present EOMI and PERRL ENT: Present mucous membranes moist and oropharynx clear *Routine Neck Exam Neck: Present supple and full ROM *Routine Respiratory Exam Respiratory: Present CTA bilaterally, normal respiratory effort, able to speak in complete sentences and symmetric chest movement; Absent accessory muscle use or respiratory distress *Routine Cardiovascular Exam Cardiovascular: Present RRR, Normal S1, Normal S2 and bradycardia *Routine Abdominal Exam Abdominal: Present soft, normoactive bowel sounds and obese; Absent tenderness or distended *Routine Rectal Exam Rectal:: deferred *Routine Genitalia Exam Genitalia:: deferred *Routine Extremities Exam Extremities: Present full ROM, pulses intact and normal capillary refill; Absent edema *Routine Skin Exam Skin: Present dry and warm *Routine Neurological Exam Neurological: Present alert, oriented X3 and CN II-XII intact Assessment and Plan *Assessment and plan (1) Chest pain: Status: Acute Category: Medical Code(s): R07.9 - Chest pain, unspecified Plan: Troponin on admission Reviewed chest x-ray, no acute process Serial troponins Monitor telemetry History of CABG Sees first assist in [place] (2) Heart palpitations: Status: Acute Category: Medical Code(s): R00.2 - Palpitations Plan: 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 franchise 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 director 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 (3) Nausea: Status: Acute Category: Medical Code(s): R11.0 - Nausea Plan: Zofran 4 mg IV every 8 hours as needed for nausea/vomiting (4) Dizziness: Status: Acute Category: Medical Code(s): R42 - Dizziness and giddiness Plan: History of M?ni?re's disease Recently seen in the ER for bilateral tinnitus discharged with prescription for Flonase and Zyrtec (5) Elevated brain natriuretic peptide (BNP) level: Status: Acute Category: Medical Code(s): R79.89 - Other specified abnormal findings of blood chemistry Plan: BNP 926 Lungs clear to auscultation No peripheral pitting edema noted (6) Anxiety: Status: Acute Category: Medical Code(s): F41.9 - Anxiety disorder, unspecified Plan: Restart patient's home Xanax when med rec is complete Patient states she is prescribed Xanax 3 times daily but takes it twice daily Plan Spoke with Alem, ER provider. My decision to admit is based on previous history of CABG, chest pain radiating to left arm, diaphoresis, and nitro being therapeutic.
[2025-05-11 09:09] LABS: Troponin I 0.02 ng/ml (0.00-0.034)
[2025-05-11 09:47] LABS: Reflex Lactic Add Lactic Reflex
--- NOTE | 2025-05-11 10:00 | HMH.PHAINT1 ---
Pharmacy Intervention Comments: MEDICATION RECONCILIATION COMPLETE USING EXTERNAL PHARMACY FILL HISTORY AND RECENT GI OFFICE VISIT NOTE.
[2025-05-11 11:16] LABS: Lactic Acid Follow Up (RFLX 1) 0.8 mmol/L (0.7-2.1)
[2025-05-11 11:29] LABS: Troponin I 0.02 ng/ml (0.00-0.034)
[2025-05-11] MEDS: ACETAMINOPHEN 325MG TAB 650 MG PO (11:47)
[2025-05-11 12:50] LABS: Lactate Venous 1.1 mmol/L (0.4-2.0); VBG HCO3 19.3 mmol/L (23-30); VBG PH 7.53 mmol/L (7.31-7.41); VBG PO2 40.5 mmol/L (28-40)
[2025-05-11 12:51] LABS: VBG PCO2 23.9 mmol/L (35-51)
[2025-05-11] MEDS: LIPASE/PROTEASE/AMYLASE 1 EACH CAPSULE.DR PO ×2 (12:54→17:13)
--- NOTE | 2025-05-11 16:57 | PC.NURSE ---
Aox 4, up with assistance times one to bsc, refused bed alarm, pain and anxiety meds given once, on RA, 20G l ac sl.
[2025-05-11] MEDS: HYDROXYCHLOROQUINE SULFATE 200MG TABLET 200 MG PO (20:31)
[2025-05-11] MEDS: ATORVASTATIN 10MG TABLET 10 MG PO (20:31)
[2025-05-12] VITALS: BP 129/67; PULSE 60; PULSE 75; RESP 16; TEMP 36.9; O2SAT 98
[2025-05-12] MEDS: ONDANSETRON 4MG/2ML VIAL 4 MG IV (01:28)
[2025-05-12] MEDS: ACETAMINOPHEN 325MG TAB 650 MG PO (03:33)
[2025-05-12 04:00] VITALS: BP 127/68; PULSE 60; PULSE 62; RESP 16; TEMP 36.8; O2SAT 100; BMI 36.5
--- NOTE | 2025-05-12 05:52 | PC.NURSE ---
Pt frequently sought out staff. v/s, ox4. No acute events to report. Plan of care ongoing.
[2025-05-12] MEDS: LIPASE/PROTEASE/AMYLASE 1 EACH CAPSULE.DR PO ×3 (06:30→17:03)
[2025-05-12 06:43] LABS: Hematocrit 37.6 % (37.0-47.0); Hemoglobin 12.5 g/dL (12.2-16.2); Immature Granulocytes % 0.5 %; Mean Corpuscular HGB Conc 33.2 g/dL (31.8-35.4); Mean Corpuscular Hemoglobin 32.2 pg (27.0-31.2); Mean Corpuscular Volume 96.9 fl (81-99); Nucleated Red Blood Cells % 0 %; Platelet Count 111 K/mm3 (142-424); Red Blood Count 3.88 M/mm3 (4.20-5.40); Red Cell Distribution Width-SD 45.6 fL; White Blood Count 4.3 K/mm3 (4.8-10.8)
[2025-05-12 06:48] LABS: Albumin Level 4.1 g/dl (3.5-5.0); Chloride 104 mmol/L (98-107); Potassium 3.6 mmoL/L (3.5-5.1); Sodium 139 mmol/L (136-145)
[2025-05-12 06:51] LABS: Alanine Aminotransferase 26 U/L (12-78); Albumin/Globulin Ratio 2.0 (1.1-1.8); Alkaline Phosphatase 64 U/L (38-126); Anion Gap 10.6 mEq/L (5-15); Aspartate Amino Transferase 36 U/L (14-36); Bilirubin,Total 1.2 mg/dl (0.2-1.3); Blood Urea Nitrogen 17 mg/dl (7-17); Calcium 8.9 mg/dl (8.4-10.2); Carbon Dioxide 28 mmol/L (22.0-30.0); Creatinine Clearance Estimated 60 mL/min (50-200); Creatinine,Serum 1.00 mg/dl (0.52-1.04); Estimated Glomerular Filt Rate 54 ml/min (>60); GFR (African American) 65 ML/MIN (>60); Globulin 2.1 g/dL (1.3-3.2); Glucose 103 mg/dl (74-100); Total Protein,Serum 6.2 g/dl (6.3-8.2)
[2025-05-12 06:52] LABS: Magnesium 2.0 mg/dl (1.6-2.3)
--- NOTE | 2025-05-12 07:20 | CA_ITS ---
APPROVED REPORT EXAM: Comprehensive 2D, Doppler, and color-flow Echocardiogram Factory Expert: Ирина Presley RDCS Ht: 4 ft 11 in Wt: 181lbs BSA: 1.77 BP: 133/66 mmHg Indications: CP H/O CABG CAD M-Mode Dimensions RVDd 3.31 cm (0.9-2.6) LA Diam 4.39 cm (1.9-4.0) LVDd 5.35 cm (3.5-5.7) LVDs 4.20 cm (3.5-5.7) IVSd 0.64 cm (0.6-1.1) PWd 0.59 cm (0.6-1.1) EF (Teich) 43.20% FS 21.50% EDV (Teich) 138.30 mL ESV (Teich) 78.60 mL LV Diastology E Decel Time 320 (160-240 msec) E/A Ratio 1.2 Mitral Valve MV E Max Efrain. 90.0 (40-130 cm/s) MV A Velocity 78.0 (40-130 cm/s) E/A Ratio 1.15 MV PHT 94.0 ms Tricuspid Valve TR P. Velocity 252.00 cm/s RAP Estimate 10.00 mmHg RVSP 35.40 mmHg Left Ventricle The left ventricle is normal size. The left ventricular systolic function is normal. The left ventricular ejection fraction is within the normal range. There is increased LV wall thickness. There is normal LV segmental wall motion. Diastolic function is indeterminate. LVEF is 55%. Right Ventricle The right ventricle is normal size. The right ventricular systolic function is normal. Atria Left atrium is severely dilated. Right atrium is moderately dilated. There is no Doppler evidence of interatrial shunt. Aortic Valve The aortic valve is mildly thickened. Trace aortic regurgitation. There is no aortic valvular stenosis. Mitral Valve The mitral valve is normal in structure. No evidence of mitral valve stenosis. Mild mitral regurgitation. Tricuspid Valve Tricuspid valve is grossly normal in structure and function. Mild tricuspid regurgitation. RVSP 25-30 mmHg. Pulmonic Valve The pulmonary valve is normal in structure. Mild pulmonic regurgitation. Great Vessels The aortic root is normal in size. IVC is normal in size and collapses >50% with inspiration. Pericardium There is no pericardial effusion. Other Information Study Quality: Fair Conclusion Normal biventricular systolic function. Biatrial dilation. Mild MR, mild TR, mild PI. Electronically signed by : Shruthi Pinto MD 05/12/2025 12:54:34
[2025-05-12 08:00] VITALS: BP 140/66; PULSE 58; PULSE 60; RESP 20; TEMP 36.7; O2SAT 98
[2025-05-12] MEDS: HYDROXYCHLOROQUINE SULFATE 200MG TABLET 200 MG PO ×2 (09:59→20:56)
[2025-05-12] MEDS: ATENOLOL 50MG TABLET 50 MG PO (09:59)
[2025-05-12] MEDS: ASPIRIN EC 81MG TABLET 81 MG PO (09:59)
--- NOTE | 2025-05-12 10:31 | EXP.CARD.CON ---
History of Present Illness History of Present Illness Consult date: 05/12/25 Requesting physician: Huy Gallegos Consult reason: chest pain Chief complaint: chest pain History of present illness: Ms. Hector is a 79-year-old white female with a past medical history of coronary artery disease status post CABG, hypertension, hyperlipidemia and GERD who presented to emergency department with complaints of chest pressure radiating to left arm intermittently since Monday and reported anxiety. She denies shortness of breath. EKG upon presentation to ER shows sinus bradycardia at a rate of 58 with an incomplete right bundle branch block. EKG shows nonspecific T wave changes which appear chronic. Serial troponins remain negative. Other labs essentially unremarkable. Chest x-ray shows hyperinflated lungs but no acute cardiopulmonary process noted. This morning on exam patient is resting comfortably and denies chest pain. She reports that if she needs any type of procedure she would like to see Dr. Chung in [place]. Echo is pending. [facility] Disclaimer: The information contained in this section may have been updated after the patient was seen, as this information can be updated by other users. Medical History Anxiety Diverticulitis Pancreatitis Hyperlipidemia Hypertension Rheumatoid arthritis Osteoarthritis Hemorrhoids Heart disease Gout GERD (gastroesophageal reflux disease) Colon polyps Colitis CAD (coronary artery disease) History of blood transfusion Surgical History H/O left wrist surgery History of right hip replacement History of cholecystectomy History of back surgery Hx of CABG H/O right wrist surgery Family History Father Cancer Social History (Updated 05/11/25 @ 08:40 by Evelyn Alfonso RN) Smoking Status: Never smoker alcohol intake: never substance use type: denies use current occupational status: retired Travel in the last 8 weeks?: None caffeine: Yes Have you lived/traveled outside US in past 30 days?: No Contact w/someone who lives/traveled outside US past 30 days?: No Exposure to someone with infectious disease in past 14 days?: No Do you have a fever (greater than 100.4 F or 38 C)?: No Have you tested positive for COVID-19?: No Exposed to someone with COVID-19 in past 14 days?: No Do you have a sore throat?: No Do you have a cough?: No Do you have any weakness?: No Are you experiencing any nausea/vomitting?: No Do you have any diarrhea?: No Are you experiencing any unusual bleeding?: No Do you have any muscle aches/pain?: No Do you have any abdominal pain?: No Are you experiencing loss of taste or smell?: No Review of Systems Constitutional Constitutional: Denies headache(s) ENT Ears, Nose, Mouth, and Throat: Reports dizziness and Denies headache(s) *Cardiovascular Cardiovascular: Reports chest pain at rest *Neurologic Neurologic: Reports dizziness and Denies headache(s) Exam Data for Last 24 hours Vital signs and Labs for Last 24 Hours: Temp Pulse Resp BP Pulse Ox O2 Del Method 98.0 F 58 L 20 140/66 98 Room Air 05/12/25 08:00 05/12/25 08:00 05/12/25 08:00 05/12/25 08:00 05/12/25 08:00 05/12/25 08:00 Laboratory Results - last 24 hr 05/11/25 10:45: Lactate 0.8, Troponin I 0.02 05/11/25 12:31: VBG pH 7.53 H, VBG pCO2 23.9 L, VBG pO2 40.5 H, VBG HCO3 19.3 L, VBG Total CO2 20.1 L, VBG O2 Saturation 81.0 H, VBG Base Excess -3.4 L, VBG Lactic Acid 1.1 05/12/25 06:01: WBC 4.3 L, RBC 3.88 L, Hgb 12.5, Hct 37.6, MCV 96.9, MCH 32.2 H, MCHC 33.2, RDW 13.1, Plt Count 111 L, MPV 11.9 H, Neut % (Auto) 67.1, Lymph % (Auto) 21.2, [place] % (Auto) 10.2 H, Eos % (Auto) 0.5, Baso % (Auto) 0.5, Neut # (Auto) 2.9, Lymph # (Auto) 0.9, [place] # (Auto) 0.4, Eos # (Auto) 0.0, Baso # (Auto) 0.0, Sodium 139, Potassium 3.6, Chloride 104, Carbon Dioxide 28, Anion Gap 10.6, BUN 17, Creatinine 1.00, Estimated Creat Clear 60, Estimated GFR 54 L, Est GFR ( Amer) 65, Glucose 103 H, Calcium 8.9, Magnesium 2.0, Total Bilirubin 1.2, AST 36, ALT 26, Alkaline Phosphatase 64, Total Protein 6.2 L, Albumin 4.1 D, Globulin 2.1, Albumin/Globulin Ratio 2.0 H I & O for Last 24 hours: Intake & Output 05/09/25 05/10/25 05/11/25 05/12/25 23:59 23:59 23:59 23:59 Intake Total 870 / 1110 510 / 510 Output Total 750 / 1150 1100 / 1100 Balance 120 / -40 -590 / -590 Weight 181 lb 7 oz 181 lb 2 oz Constitutional Constitutional: no acute distress *Routine Respiratory Exam Respiratory: Present CTA bilaterally and symmetric chest movement *Routine Cardiovascular Exam Cardiovascular: Present RRR, Normal S1 and Normal S2 *Routine Abdominal Exam Abdominal: Present soft and normoactive bowel sounds; Absent tenderness *Routine Extremities Exam Extremities: Present full ROM and normal capillary refill; Absent edema *Routine Skin Exam Skin: Present intact, dry and warm Detailed Neck Exam: Thyroids Thyroid: Absent bruit Meds Home Medications and Allergies Home Medications ?Medication ?Instructions ?Recorded ?Confirmed ?Type alprazolam 0.25 mg tablet 0.25 mg PO TIDP PRN Anxiety 01/06/19 05/11/25 History atorvastatin 10 mg tablet (Lipitor) 10 mg PO HS 01/06/19 05/11/25 History cevimeline 30 mg capsule 30 mg PO TID 01/06/19 05/11/25 History colchicine 0.6 mg tablet 0.6 mg PO DAILY 01/06/19 05/11/25 History hydroxychloroquine 200 mg tablet 200 mg PO BID Arthritis 01/06/19 05/11/25 History nitroglycerin 0.4 mg sublingual 0.4 mg sublingual Q5MINP PRN Chest 08/30/19 05/11/25 History tablet Pain aspirin 81 mg tablet,delayed 81 mg PO DAILY 01/04/20 05/11/25 History release atenolol 50 mg tablet 50 mg PO DAILY 01/04/20 05/11/25 History cyclosporine 0.05 % eye drops in a 1 drp ophthalmic (eye) DAILY dry 01/04/20 05/11/25 History dropperette (Restasis) eyes cyanocobalamin (vitamin B-12) 1,000 mcg IM MONTHLY 08/21/24 05/11/25 History 1,000 mcg/mL injection solution vonoprazan 20 mg tablet (Voquezna) 20 mg PO DAILY #90 tabs 09/23/24 05/11/25 Rx cholecalciferol (vitamin D3) 125 125 mcg PO DAILY 12/18/24 05/11/25 History mcg (5,000 unit) capsule colestipol 1 gram tablet 1 g PO BID Cholesterol 12/18/24 05/11/25 History furosemide 20 mg tablet 20 mg PO DAILYP PRN Fluid 12/18/24 05/11/25 History vibegron 75 mg tablet (Gemtesa) 75 mg PO DAILY 12/18/24 05/11/25 History calcium polycarbophil 625 mg 625 mg PO DAILY 03/24/25 05/11/25 History tablet (FiberCon) lidsiw-ejstunzj-pipmmce 1 cap PO AC 03/26/25 05/11/25 History 36,000-114,000-180,000 unit capsule,delay rel (Creon) azelastine 137 mcg-fluticasone 50 1 spray intranasal BID 05/11/25 05/11/25 History mcg/spray nasal spray (Dymista) cetirizine 10 mg capsule (Zyrtec) 10 mg PO DAILYP PRN allergy 05/11/25 05/11/25 History symptoms ondansetron HCl 4 mg tablet 4 mg PO Q8HP PRN nausea and 05/11/25 05/11/25 History vomiting New Prescriptions to Start Prescriptions: Allergies Allergy/AdvReac Type Severity Reaction Status Date / Time Penicillins Allergy Intermediate Rash Verified 03/26/25 10:11 ibuprofen (From Motrin) Allergy Mild Rash Verified 03/26/25 10:11 sulfamethoxazole (From Allergy Unknown Verified 03/26/25 10:11 Bactrim) allergy reaction trimethoprim (From Bactrim) Allergy Unknown Verified 03/26/25 10:11 allergy reaction Assessment and Plan *Assessment and plan (1) Chest pain: Status: Acute Category: Medical Code(s): R07.9 - Chest pain, unspecified Plan Chest pain-resolved History of CABG History of anxiety EKG upon presentation negative for STEMI Troponins negative x 3 Echocardiogram shows normal biventricular systolic function, biatrial dilation and mild MR/TR/PI Patient reports that if she needs to have any procedure she would like to see Dr. Chung at [facility]. I discussed with patient that she is a high risk patient considering her history of CABG. I offered patient an inpatient left heart catheterization today-patient declined stating she would like to have any procedures done by Dr. Chung at [facility]. I also offered her an inpatient stress test, however the soonest it can be done is in the morning-patient is agreeable to proceed with nuclear stress test in the morning. CV summary 05/12/2025: Will proceed with nuclear stress test in the morning to evaluate for coronary artery disease.
[2025-05-12 12:00] VITALS: BP 129/67; PULSE 61; PULSE 68; RESP 18; TEMP 36.8; O2SAT 99
[2025-05-12 16:00] VITALS: BP 141/72; PULSE 66; RESP 22; TEMP 36.7; O2SAT 95
--- NOTE | 2025-05-12 19:19 | EXP.ACUTE.PN ---
Subjective *Date: 05/12/25 *Time: 22:27 Interval history: Stay she is feeling anxious today. Stable on room air. Having some tingling in both arms occasionally. Chest pain comes and goes. No shortness of breath. No nausea or vomiting. Medical Exam Vital signs and Labs for Last 24 Hours: Vital Signs Temp Pulse Pulse Resp BP Pulse Ox O2 Del Method 05/12/25 17:00 Room Air 05/12/25 16:00 66 05/12/25 16:00 98.0 F 66 22 141/72 H 95 Room Air 05/12/25 15:00 Room Air 05/12/25 13:00 Room Air 05/12/25 12:00 68 05/12/25 12:00 68 05/12/25 12:00 98.2 F 61 18 129/67 99 Room Air 05/12/25 11:00 Room Air 05/12/25 09:00 Room Air 05/12/25 08:00 Room Air 05/12/25 08:00 60 05/12/25 08:00 98.0 F 58 L 20 140/66 98 Room Air 05/12/25 06:20 Room Air 05/12/25 05:00 Room Air 05/12/25 04:00 98.2 F 62 16 127/68 100 Room Air 05/12/25 04:00 60 05/12/25 03:00 Room Air 05/12/25 01:00 Room Air 05/12/25 00:00 60 05/12/25 00:00 98.5 F 75 16 129/67 98 Room Air 05/11/25 23:00 Room Air 05/11/25 21:00 Room Air 05/11/25 20:00 Room Air 05/11/25 20:00 60 05/11/25 20:00 98.2 F 57 L 16 134/58 L 96 Room Air Intake and Output 05/12/25 05/12/25 05/12/25 07:59 15:59 23:59 Intake Total 240 / 1050 570 / 1050 240 / 1050 Output Total / 1999 / 1999 / 1999 Balance -460 / -950 70 / -950 -560 / -950 Intake: Intake, Oral Amount 240 / 1050 570 / 1050 240 / 1050 Output: Output, Urine Amount 1999 / 1999 800 / 1999 Other: Number of Unmeasured Voids 0 Number of Bowel Movements 1 Weight 82.157 kg Patient Weight 05/12/25 23:59 Weight 82.157 kg Laboratory Results - last 24 hr 05/12/25 06:01: WBC 4.3 L, RBC 3.88 L, Hgb 12.5, Hct 37.6, MCV 96.9, MCH 32.2 H, MCHC 33.2, RDW 13.1, Plt Count 111 L, MPV 11.9 H, Neut % (Auto) 67.1, Lymph % (Auto) 21.2, [place] % (Auto) 10.2 H, Eos % (Auto) 0.5, Baso % (Auto) 0.5, Neut # (Auto) 2.9, Lymph # (Auto) 0.9, [place] # (Auto) 0.4, Eos # (Auto) 0.0, Baso # (Auto) 0.0, Sodium 139, Potassium 3.6, Chloride 104, Carbon Dioxide 28, Anion Gap 10.6, BUN 17, Creatinine 1.00, Estimated Creat Clear 60, Estimated GFR 54 L, Est GFR ( Amer) 65, Glucose 103 H, Calcium 8.9, Magnesium 2.0, Total Bilirubin 1.2, AST 36, ALT 26, Alkaline Phosphatase 64, Total Protein 6.2 L, Albumin 4.1 D, Globulin 2.1, Albumin/Globulin Ratio 2.0 H I & O for Labs for Last 24 Hours: Intake & Output 05/09/25 05/10/25 05/11/25 05/12/25 23:59 23:59 23:59 23:59 Intake Total 870 / 1110 1050 / 1050 Output Total 750 / 1150 1999 / 1999 Balance 120 / -40 -950 / -950 Weight 82.299 kg 82.157 kg Constitutional: Present no acute distress, obese, chronically ill appearing and cooperative Head: Present atraumatic and normocephalic ENT: Present normal exam Respiratory: Present normal respiratory effort; Absent rhonchi, wheezes or crackles Cardiac: Present Reg Rate and Rhythm GI: Present soft and normal bowel sounds; Absent distention or tenderness Extremities: Present normal inspection and full ROM; Absent edema Comment:: Lipedema in arms and legs Skin: Present intact; Absent erythema Neuro: Present Grossly Intact, alert, awake, oriented x 3 and moves all extremities Assessment and Plan *Assessment and plan (1) Chest pain: Status: Acute Category: Medical Code(s): R07.9 - Chest pain, unspecified Plan: Troponin on admission Reviewed chest x-ray, no acute process Serial troponins Monitor telemetry History of CABG 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 [place] (2) Heart palpitations: Status: Acute Category: Medical Code(s): R00.2 - Palpitations Plan: 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 (3) Nausea: Status: Acute Category: Medical Code(s): R11.0 - Nausea Plan: Zofran 4 mg IV every 8 hours as needed for nausea/vomiting (4) Dizziness: Status: Acute Category: Medical Code(s): R42 - Dizziness and giddiness Plan: History of M?ni?re's disease Recently seen in the ER for bilateral tinnitus discharged with prescription for Flonase and Zyrtec (5) Elevated brain natriuretic peptide (BNP) level: Status: Acute Category: Medical Code(s): R79.89 - Other specified abnormal findings of blood chemistry Plan: BNP 926 Lungs clear to auscultation No peripheral pitting edema noted (6) Anxiety: Status: Acute Category: Medical Code(s): F41.9 - Anxiety disorder, unspecified Plan: Restart patient's home Xanax when med rec is complete Patient states she is prescribed Xanax 3 times daily but takes it twice daily Plan 79-year-old female with history of CABG who presented with chest pain. Concern for anxiety versus unstable angina. Cardiology evaluated today. Problems addressed as follows: Discussed case with cardiology, EKG on presentation was negative for STEMI. Serial troponins were negative. Echo obtained showing normal BiV systolic function. -Given persistence of chest pain, discussed risks and benefits of stress test. Patient elected to proceed with nuclear stress test in the morning to evaluate CAD. -Patient declined left heart cath stating she would like to have any procedure done by Dr. Chung at [facility]. -Continue aspirin 81 mg daily, atenolol 50 mg daily, Lipitor 10 mg nightly, Lasix 20 mg daily Anxiety: Continue Xanax 0.25 mg 3 times a day as needed. Discussed initiating SSRI, patient states she has had side effects in the past and does not want to start any at this time. Will defer further discussion to PCP. Labs with normal kidney function, BUN 17, creatinine 1, potassium 3.6, magnesium 2.0. Repeat CBC, CMP, magnesium ordered for the morning. Full code Cardiac diet, n.p.o. at midnight Continue Lovenox 40 mg daily
[2025-05-12 20:00] VITALS: BP 112/53; PULSE 60; PULSE 65; RESP 16; TEMP 36.8; O2SAT 96
[2025-05-12] MEDS: ATORVASTATIN 10MG TABLET 10 MG PO (20:56)
[2025-05-13] VITALS: BP 107/55; PULSE 65; PULSE 70; RESP 17; TEMP 37; O2SAT 96
--- NOTE | 2025-05-13 | CA_ITS ---
APPROVED REPORT Exam: Pharmacologic Technologist: Joan Roper Ht: 4 ft 11 in Wt: 181 lbs BSA: 1.77 m2 HR: 64 bpm BP: 112/71 mmHg Stress Test Details Test: Lexiscan HR Resting HR: 64 bpm Max Heart Rate (APMHR): 142.705507 bpm Max HR Achieved: 82 bpm Target HR (85% APMHR): 120.847994 bpm % of APMHR: 57.75 Recovery HR: 76 bpm BP Resting BP: 112.0/71.0 mmHg Max BP: 136.0/67.0 mmHg Recovery BP: 124.0/69.0 mmHg ECG Resting ECG: Sinus rhythm Stress ECG Conclusion Symptoms: Nausea Arrhythmias/Ectopy: PAC, PVCs ST-T Changes: Baseline ST abnormalities. Conclusion: EKG unremarkable due to Lexiscan infusion. Baseline EKG - ST abnormalitiy Electronically signed by : Shruthi Pinto MD 05/14/2025 00:23:48
[2025-05-13] MEDS: ACETAMINOPHEN 325MG TAB 650 MG PO ×2 (01:10→11:20)
[2025-05-13 04:00] VITALS: BP 130/69; PULSE 60; PULSE 69; RESP 17; TEMP 36.6; O2SAT 99; BMI 36.0
--- NOTE | 2025-05-13 04:10 | PC.NURSE ---
Patient is alert and oriented x4. She was observed to be resting in bed with eyes closed, respirations even and unlabored on room air, and no apparent distress throughout the majority of the night. The patient has not had any complaints of chest pain this shift, other than a complaint of mild, aching pain in the left-side of her breast area. Tylenol was given per MAR for pain relief. Scheduled medications were administered as appropriately per MAR. One dose of Xanax was given for anxiety relief. Moderate edema was observed in her bilateral upper/lower extremities. Auscultation of her heart, lungs, and bowels were within normal findings. She ambulates independently with standby assistance as needed in her room/to the bathroom without difficulties. Patient reports having chronically loose and urgent bowel movements (stated due to her history of diverticulitis, documented in chart); no bowel movement, thus far, this shift. Urine output documented accordingly. Patient has remained NPO since midnight pending her cardiac procedure later this morning. Vital signs stable. On telemetry. At this time, the patient is resting in bed without any further complaints. No new needs thus far. Call light within reach.
[2025-05-13 06:31] LABS: Hematocrit 38.3 % (37.0-47.0); Hemoglobin 12.6 g/dL (12.2-16.2); Immature Granulocytes % 0.2 %; Mean Corpuscular HGB Conc 32.9 g/dL (31.8-35.4); Mean Corpuscular Hemoglobin 32.1 pg (27.0-31.2); Mean Corpuscular Volume 97.5 fl (81-99); Nucleated Red Blood Cells % 0 %; Platelet Count 112 K/mm3 (142-424); Red Blood Count 3.93 M/mm3 (4.20-5.40); Red Cell Distribution Width-SD 46.9 fL; White Blood Count 4.7 K/mm3 (4.8-10.8)
[2025-05-13 06:40] LABS: Alanine Aminotransferase 26 U/L (12-78); Albumin Level 4.2 g/dl (3.5-5.0); Albumin/Globulin Ratio 1.9 (1.1-1.8); Alkaline Phosphatase 52 U/L (38-126); Anion Gap 10.4 mEq/L (5-15); Aspartate Amino Transferase 43 U/L (14-36); Bilirubin,Total 1.4 mg/dl (0.2-1.3); Blood Urea Nitrogen 24 mg/dl (7-17); Calcium 9.5 mg/dl (8.4-10.2); Carbon Dioxide 28 mmol/L (22.0-30.0); Chloride 101 mmol/L (98-107); Creatinine Clearance Estimated 54 mL/min (50-200); Creatinine,Serum 1.10 mg/dl (0.52-1.04); Estimated Glomerular Filt Rate 48 ml/min (>60); GFR (African American) 58 ML/MIN (>60); Globulin 2.2 g/dL (1.3-3.2); Glucose 95 mg/dl (74-100); Potassium 3.4 mmoL/L (3.5-5.1); Sodium 136 mmol/L (136-145); Total Protein,Serum 6.4 g/dl (6.3-8.2)
[2025-05-13 06:55] LABS: Magnesium 1.8 mg/dl (1.6-2.3)
--- NOTE | 2025-05-13 06:57 | PC.NURSE ---
Patient left floor with staff for Radiology at 06:56.
--- NOTE | 2025-05-13 07:00 | NM_ITS ---
APPROVED REPORT Exam: Nuclear Stress Test Indication: Chest pain, Palpitations, HTN, High cholesterol, CAD, CABG Patient Location: Inpatient Stress Tech: Joan Roper NM Tech:Kelly Narayanan, ARRT, RT (R)(N) Ht: 4 ft 11 in Wt: 200 lbs Bra Size: D HR: 65 bpm BP: 112/71 mmHg BSA: 1.84 m2 TID: 1.32 BMI: 40.3 History: Chest pain, Palpitations, HTN, High cholesterol, CAD, CABG Procedure: Patient received 0.4 mg of intravenous Lexiscan, resting heart rate 65 bpm, resting blood pressure 112/71 mmHg, with Lexiscan maximum heart rate achieved was 94 bpm which is % of the maximum predicted heart rate and blood pressure was 136/67 mmHg. With Lexiscan, patient denied any complaint of chest pain. Cardiac Stress and Resting SPECT Images: Cardiac Stress and Resting SPECT images were obtained using technetium 99m Myoview 30.8 mCi stress and 10.75 mCi at rest. The patient was unable to lie on her abdomen. Therefore, prone stress imaging could not be performed. This may affect diagnostic interpretation of the study findings. Resting and stress imaging in supine positions demonstrate a large sized, severe, fixed perfusion defect in the basal and mid inferior LV wall. There is also a medium sized, moderate, reversible perfusion defect in the apical LV wall. There is also increase in transient ischemic dilatation ratio (TID 1.32), which may be suggestive of possible multivessel disease or balanced ischemia. Gated imaging demonstrates low-normal global LV systolic function. There is akinesis of the basal inferior LV wall. There is mild hypokinesis of the LV apical wall. LVEF is calculated at 51%. Conclusion: Large sized, severe, fixed perfusion defect in the basal and mid inferior LV wall. Medium sized, moderate, reversible perfusion defect in the apical LV wall. Findings are suggestive of reversible ischemia. There is also increase in transient ischemic dilatation ratio (TID 1.32), which may be suggestive of possible multivessel disease or balanced ischemia. Gated imaging demonstrates low-normal global LV systolic function. There is akinesis of the basal inferior LV wall. There is mild hypokinesis of the LV apical wall. LVEF is calculated at 51%. Electronically signed by : Shruthi Pinto MD 05/14/2025 00:20:47
--- NOTE | 2025-05-13 08:22 | PC.NURSE ---
Patient is currently off the floor at stress test, 0800 vital were not done.
[2025-05-13] MEDS: ISOTOPE MYOVIEW (PER STUDY) 1 DOSE IV (08:49)
[2025-05-13] MEDS: SODIUM CHLORIDE 0.9% 10ML SYR (RAD ONLY) 10 ML IV ×2 (08:49)
--- NOTE | 2025-05-13 10:00 | PC.NURSE ---
Pt back from radilogy @ this time
[2025-05-13] MEDS: HYDROXYCHLOROQUINE SULFATE 200MG TABLET 200 MG PO ×2 (10:08→21:30)
[2025-05-13] MEDS: LIPASE/PROTEASE/AMYLASE 1 EACH CAPSULE.DR PO ×2 (10:08→16:49)
[2025-05-13] MEDS: ATENOLOL 50MG TABLET 50 MG PO (10:08)
[2025-05-13] MEDS: ASPIRIN EC 81MG TABLET 81 MG PO (10:08)
[2025-05-13 10:10] VITALS: BP 139/62; PULSE 67; RESP 18; TEMP 36.7; O2SAT 99
--- NOTE | 2025-05-13 10:55 | P.PN_ITS ---
Subjective Subjective Date: 05/13/25 Time: 08:00 Principal diagnosis: chest pain Interval history: Morning labs reviewed, patient currently doing stress test. Exam Data for Last 24 hours Vital signs and Labs for Last 24 Hours: Temp Pulse Resp BP Pulse Ox O2 Del Method 98.1 F 67 18 139/62 99 Room Air 05/13/25 10:10 05/13/25 10:10 05/13/25 10:10 05/13/25 10:10 05/13/25 10:10 05/13/25 10:10 Laboratory Results - last 24 hr 05/13/25 05:17: WBC 4.7 L, RBC 3.93 L, Hgb 12.6, Hct 38.3, MCV 97.5, MCH 32.1 H, MCHC 32.9, RDW 13.1, Plt Count 112 L, MPV 12.4 H, Neut % (Auto) 69.3, Lymph % (Auto) 19.1, [place] % (Auto) 10.1 H, Eos % (Auto) 0.9, Baso % (Auto) 0.4, Neut # (Auto) 3.2, Lymph # (Auto) 0.9, [place] # (Auto) 0.5, Eos # (Auto) 0.0, Baso # (Auto) 0.0, Sodium 136, Potassium 3.4 L, Chloride 101, Carbon Dioxide 28, Anion Gap 10.4, BUN 24 H D, Creatinine 1.10 H, Estimated Creat Clear 54, Estimated GFR 48 L, Est GFR ( Amer) 58 L, Glucose 95, Calcium 9.5, Magnesium 1.8, Total Bilirubin 1.4 H, AST 43 H, ALT 26, Alkaline Phosphatase 52, Total Protein 6.4, Albumin 4.2, Globulin 2.2, Albumin/Globulin Ratio 1.9 H I & O for Last 24 hours: Intake & Output 05/10/25 05/11/25 05/12/25 05/13/25 23:59 23:59 23:59 23:59 Intake Total 870 / 1110 1050 / 1230 180 / 180 Output Total 750 / 1150 2400 / 2400 300 / 300 Balance 120 / -40 -1350 / -1170 -120 / -120 Weight 181 lb 7 oz 181 lb 2 oz 178 lb 9.6 oz Progress Note: A&P Assessment and plan (1) Chest pain: Status: Acute (2) Heart palpitations: Status: Acute (3) Nausea: Status: Acute (4) Dizziness: Status: Acute (5) Elevated brain natriuretic peptide (BNP) level: Status: Acute (6) Anxiety: Status: Acute Assessment and Plan Assessment and Plan for All Diagnoses:: Chest pain-resolved History of CABG History of anxiety EKG upon presentation negative for STEMI Troponins negative x 3 Echocardiogram shows normal biventricular systolic function, biatrial dilation and mild MR/TR/PI Patient reports that if she needs to have any procedure she would like to see Dr. Chung at [facility]. stress test pending CV summary 05/13/2025: Nuclear stress test pending
[2025-05-13 12:00] VITALS: BP 119/86; PULSE 66; RESP 18; TEMP 36.9; O2SAT 98
[2025-05-13] MEDS: SCOPOLAMINE 1.5MG/72HRS PATCH 1 EACH TD (12:26)
--- NOTE | 2025-05-13 13:59 | SW/DCPLANNER ---
Addendum entered by Grace Chapman 05/14/25 09:28: Spoke with patient in her room if she has made her decision on home health and patient stated that she is not going to take home health. Patient stated that she would like to see how she is doing after she gets home. I stated to patient that once she is home and if she thinks she needs it then her PCP can sat her up with home health. Angela Heaton Original Note: Spoke with patient regarding home health once she is medically stable and ready for discharge. Patient stated that she needs to think about it. I told patient that if she was to discharge and that when i do my follow up phone call i will ask her about home health. Patient agreed to that. Angela Heaton
[2025-05-13 16:00] VITALS: BP 144/82; PULSE 63; RESP 16; TEMP 36.6; O2SAT 99
--- NOTE | 2025-05-13 18:35 | PC.NURSE ---
Pt is A&Ox4. Vital signs stable tolerating room air. Stress test complete today. Pt expresses anxiety. PRN anxiety medication given per MAR. Pt resting comfortably in bed with no further needs voiced at this time. Call light within reach.
--- NOTE | 2025-05-13 19:06 | P.PN_ITS ---
Subjective *Date: 05/13/25 *Time: 23:21 Interval history: Complaining of feeling dizzy today. Having some ringing in her ears. Feels like her M?ni?re's is flaring. Stable on room air. Denies shortness of breath. Still has uneasy sensation in mild chest discomfort. Going for stress test today Medical Exam Vital signs and Labs for Last 24 Hours: Vital Signs Temp Pulse Pulse Resp BP Pulse Ox O2 Del Method 05/13/25 18:53 Room Air 05/13/25 17:00 Room Air 05/13/25 16:00 97.9 F 63 16 144/82 H 99 Room Air 05/13/25 15:00 Room Air 05/13/25 13:00 Room Air 05/13/25 12:00 98.4 F 66 18 119/86 98 Room Air 05/13/25 11:00 Room Air 05/13/25 10:10 98.1 F 67 18 139/62 99 Room Air 05/13/25 10:00 Room Air 05/13/25 06:35 Room Air 05/13/25 05:00 Room Air 05/13/25 04:00 60 05/13/25 04:00 97.8 F 69 17 130/69 99 Room Air 05/13/25 03:00 Room Air 05/13/25 01:00 Room Air 05/13/25 00:00 70 05/13/25 00:00 98.6 F 65 17 107/55 L 96 Room Air 05/12/25 23:00 Room Air 05/12/25 21:00 Room Air 05/12/25 20:00 Room Air 05/12/25 20:00 60 05/12/25 20:00 98.3 F 65 16 112/53 L 96 Room Air Intake and Output 05/13/25 05/13/25 05/13/25 07:59 15:59 23:59 Intake Total 180 / 720 270 / 720 270 / 720 Output Total 300 / 1450 400 / 1450 750 / 1450 Balance -120 / -730 -130 / -730 -480 / -730 Intake: Intake, Oral Amount 180 / 720 270 / 720 270 / 720 Output: Output, Urine Amount 300 / 1450 400 / 1450 750 / 1450 Other: Number of Unmeasured Voids 0 0 0 Number of Bowel Movements 1 Weight 81.012 kg Patient Weight 05/13/25 23:59 Weight 81.012 kg Laboratory Results - last 24 hr 05/13/25 05:17: WBC 4.7 L, RBC 3.93 L, Hgb 12.6, Hct 38.3, MCV 97.5, MCH 32.1 H, MCHC 32.9, RDW 13.1, Plt Count 112 L, MPV 12.4 H, Neut % (Auto) 69.3, Lymph % (Auto) 19.1, [place] % (Auto) 10.1 H, Eos % (Auto) 0.9, Baso % (Auto) 0.4, Neut # (Auto) 3.2, Lymph # (Auto) 0.9, [place] # (Auto) 0.5, Eos # (Auto) 0.0, Baso # (Auto) 0.0, Sodium 136, Potassium 3.4 L, Chloride 101, Carbon Dioxide 28, Anion Gap 10.4, BUN 24 H D, Creatinine 1.10 H, Estimated Creat Clear 54, Estimated GFR 48 L, Est GFR ( Amer) 58 L, Glucose 95, Calcium 9.5, Magnesium 1.8, Total Bilirubin 1.4 H, AST 43 H, ALT 26, Alkaline Phosphatase 52, Total Protein 6.4, Albumin 4.2, Globulin 2.2, Albumin/Globulin Ratio 1.9 H I & O for Labs for Last 24 Hours: Intake & Output 05/10/25 05/11/25 05/12/25 05/13/25 23:59 23:59 23:59 23:59 Intake Total 870 / 1110 1050 / 1230 720 / 720 Output Total 750 / 1150 2400 / 2400 1450 / 1450 Balance 120 / -40 -1350 / -1170 -730 / -730 Weight 82.299 kg 82.157 kg 81.012 kg Constitutional: Present no acute distress, obese, chronically ill appearing and cooperative Head: Present atraumatic and normocephalic ENT: Present normal exam Respiratory: Present normal respiratory effort; Absent rhonchi, wheezes or crackles Cardiac: Present Reg Rate and Rhythm GI: Present soft and normal bowel sounds; Absent distention or tenderness Extremities: Present normal inspection and full ROM; Absent edema Comment:: Lipedema in arms and legs Skin: Present intact; Absent erythema Neuro: Present Grossly Intact, alert, awake, oriented x 3 and moves all extremities Assessment and Plan *Assessment and plan (1) Chest pain: Status: Acute Category: Medical Code(s): R07.9 - Chest pain, unspecified (2) Heart palpitations: Status: Acute Category: Medical Code(s): R00.2 - Palpitations (3) Nausea: Status: Acute Category: Medical Code(s): R11.0 - Nausea Plan: Zofran 4 mg IV every 8 hours as needed for nausea/vomiting (4) Dizziness: Status: Acute Category: Medical Code(s): R42 - Dizziness and giddiness Plan: History of M?ni?re's disease Initiate scopolamine patch (5) Elevated brain natriuretic peptide (BNP) level: Status: Acute Category: Medical Code(s): R79.89 - Other specified abnormal findings of blood chemistry (6) Anxiety: Status: Acute Category: Medical Code(s): F41.9 - Anxiety disorder, unspecified Plan 79-year-old female with history of CABG who presented with chest pain. Concern for anxiety versus unstable angina. Taken for stress test today, found to have area of reversible ischemia. Recommend left heart cath, patient will proceed with left heart cath in the morning. Continue to monitor overnight. Problems addressed as follows: Discussed case with cardiology, EKG on presentation was negative for STEMI. Serial troponins were negative. Echo obtained showing normal BiV systolic function. - Stress test abnormal, recommend left heart cath. - Continue aspirin 81 mg daily, atenolol 50 mg daily, Lipitor 10 mg nightly, Lasix 20 mg daily Initiate scopolamine patch for dizziness with M?ni?re's. Anxiety: Continue Xanax 0.25 mg 3 times a day as needed. Discussed initiating SSRI, patient states she has had side effects in the past and does not want to start any at this time. Will defer further discussion to PCP. Labs with normal kidney function, BUN 24, creatinine 1.1, potassium 3.4, magnesium 1.8. Repeat CBC, CMP, magnesium ordered for the morning. Full code Cardiac diet, n.p.o. at midnight Continue Lovenox 40 mg daily
[2025-05-13 20:00] VITALS: BP 155/89; PULSE 60; RESP 16; TEMP 36.8; O2SAT 99
[2025-05-13] MEDS: ATORVASTATIN 20MG TABLET 20 MG PO (21:50)
[2025-05-14] VITALS (15 sets, daily range): BP systolic 111–134; BP diastolic 51–86; PULSE 46–66; RESP 15–20; TEMP 36.3–36.8; O2SAT 93–100; BMI 35.6
--- NOTE | 2025-05-14 03:30 | PC.NURSE ---
Addendum entered by Gisselle Hummel RN 05/14/25 04:00: Nuclear precautions ongoing for previous stress test procedure. Patient was encouraged to drink adequate fluids prior to midnight to help flush out radioactivity. Original Note: Patient is alert and oriented x4. She was observed to be resting in bed with eyes closed, respirations even and unlabored on room air, and no apparent distress throughout the majority of the night. Patient has not had any complaints of chest pain this shift. Scopolamine patch remains intact approximate to mastoid area, under her left ear; no further reports of spinning or dizziness this shift. Scheduled medications were administered as appropriately per JAN. One dose of Xanax was given at bedtime for anxiety relief. Edema remains in her bilateral upper/lower extremities. Skin issues documented accordingly. Patient has remained NPO since midnight pending cardiac procedure later this morning/afternoon. At this time, the patient is resting in bed without any further complaints. No new needs thus far. Call light within reach.
[2025-05-14 06:43] LABS: Hematocrit 38.4 % (37.0-47.0); Hemoglobin 12.6 g/dL (12.2-16.2); Immature Granulocytes % 0.3 %; Mean Corpuscular HGB Conc 32.8 g/dL (31.8-35.4); Mean Corpuscular Hemoglobin 32.0 pg (27.0-31.2); Mean Corpuscular Volume 97.5 fl (81-99); Nucleated Red Blood Cells % 0 %; Platelet Count 104 K/mm3 (142-424); Red Blood Count 3.94 M/mm3 (4.20-5.40); Red Cell Distribution Width-SD 46.6 fL; White Blood Count 6.0 K/mm3 (4.8-10.8)
[2025-05-14 07:08] LABS: Alanine Aminotransferase 30 U/L (12-78); Albumin Level 4.0 g/dl (3.5-5.0); Albumin/Globulin Ratio 1.8 (1.1-1.8); Alkaline Phosphatase 55 U/L (38-126); Anion Gap 10.5 mEq/L (5-15); Aspartate Amino Transferase 46 U/L (14-36); Bilirubin,Total 1.6 mg/dl (0.2-1.3); Blood Urea Nitrogen 16 mg/dl (7-17); Calcium 8.6 mg/dl (8.4-10.2); Carbon Dioxide 30 mmol/L (22.0-30.0); Chloride 100 mmol/L (98-107); Creatinine Clearance Estimated 59 mL/min (50-200); Creatinine,Serum 1.00 mg/dl (0.52-1.04); Estimated Glomerular Filt Rate 54 ml/min (>60); GFR (African American) 65 ML/MIN (>60); Globulin 2.2 g/dL (1.3-3.2); Glucose 77 mg/dl (74-100); Potassium 3.5 mmoL/L (3.5-5.1); Sodium 137 mmol/L (136-145); Total Protein,Serum 6.2 g/dl (6.3-8.2)
[2025-05-14 07:54] LABS: Magnesium 2.0 mg/dl (1.6-2.3)
[2025-05-14] MEDS: HYDROXYCHLOROQUINE SULFATE 200MG TABLET 200 MG PO (08:16)
[2025-05-14] MEDS: ATENOLOL 50MG TABLET 50 MG PO (08:16)
[2025-05-14] MEDS: ASPIRIN EC 81MG TABLET 81 MG PO (08:16)
--- NOTE | 2025-05-14 08:38 | IR_ITS ---
APPROVED REPORT Patient Location: Inpatient PROCEDURES Left heart catheterization Left ventriculogram Selective coronary angiogram Left internal mammary angiography to the LAD Selective engagement of the saphenous vein graft to the circumflex artery Selective engagement of the saphenous vein graft to the right coronary Intravascular ultrasound to the saphenous vein graft supplying the circumflex artery Drug-eluting stent deployment to the ostial proximal segment of the saphenous vein graft supplying circumflex artery INDICATION Coronary artery disease, Abnormal Myoview, Unstable angina, History of coronary bypass surgery, 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 COMPLICATIONS None Estimated Blood Loss: Less than 10 mls TECHNIQUE One percent lidocaine used to anesthetize the right groin. The right femoral artery was accessed via the Seldinger technique and a 5 [place] sheath was placed in the right femoral artery. A JL 4, JR4 catheter were used to perform left heart catheterization, left ventriculogram selective coronary angiography as well as selective engagement of the 2 vein grafts and the left internal mammary artery. At the end of the diagnostic angiogram therapeutic Was administered giving a therapeutic ACT and the 5 [place] sheath exchanged for a 6 [place] sheath. The JR4 guide catheter was placed in the saphenous vein graft to the circumflex artery followed by a Choice PT extra-support wire placed distally. Intravascular ultrasound probe was advanced into the ostium which demonstrated an MLA slightly above 2 mm???. The IVUS catheter could not be advanced due to severe calcification and stenosis involving the ostial proximal segment of the vein graft. Because of this a 3 mm x 22 mm [place] frontier stent was deployed in the ostial proximal segment at 24 ubaldo reducing the critical stenosis to 0%. Excellent angiograph results were obtained. At the end of the procedure the apparatus was removed the groin is reprepped closure change sheath was removed good hemostasis was achieved using Perclose device patient transferred to the postop putting in stable condition ANGIOGRAPHIC RESULTS The left main artery Is patent The left anterior descending artery Is proximally patent with 70 to 80% calcified stenosis and then occluded after a small to medium sized first diagonal artery The circumflex artery Nondominant and patent and supplies a small obtuse marginal artery The right coronary artery Proximally occluded The EPSTEIN ventriculogram reveals Preserved at 55% The left ventricular end-diastolic pressure Less than 10 mmHg LOPEZ to LAD widely patent Saphenous graft to terminal large obtuse marginal artery has a critical greater than 90% ostial proximal stenosis Saphenous graft to distal right coronary widely patent IMPRESSION 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 Aspirin Plavix 2. LDL less than 55 if she is at high intensity statin 3. Avoidance of tobacco products 4. Risk factor modification 5. Cardiac rehabilitation Electronically signed by : Roc Chew MD 05/14/2025 11:17:40
--- NOTE | 2025-05-14 10:00 | EXP.CARD.PN ---
Subjective Subjective Date: 05/14/25 Time: 08:00 Principal diagnosis: chest pain Interval history: Status post stress test yesterday which was abnormal. Patient agrees to proceed with left heart catheterization today. Exam Data for Last 24 hours Vital signs and Labs for Last 24 Hours: Temp Pulse Resp BP Pulse Ox O2 Del Method 98.3 F 61 18 125/67 99 Room Air 05/14/25 08:00 05/14/25 08:00 05/14/25 08:00 05/14/25 08:00 05/14/25 08:00 05/14/25 09:00 Laboratory Results - last 24 hr 05/14/25 05:24: WBC 6.0 D, RBC 3.94 L, Hgb 12.6, Hct 38.4, MCV 97.5, MCH 32.0 H, MCHC 32.8, RDW 13.1, Plt Count 104 L, MPV 11.9 H, Neut % (Auto) 73.9, Lymph % (Auto) 13.7, [place] % (Auto) 11.0 H, Eos % (Auto) 0.8, Baso % (Auto) 0.3, Neut # (Auto) 4.4, Lymph # (Auto) 0.8, [place] # (Auto) 0.7, Eos # (Auto) 0.1, Baso # (Auto) 0.0, Sodium 137, Potassium 3.5, Chloride 100, Carbon Dioxide 30, Anion Gap 10.5, BUN 16 D, Creatinine 1.00, Estimated Creat Clear 59, Estimated GFR 54 L, Est GFR ( Amer) 65, Glucose 77, Calcium 8.6, Magnesium 2.0 D, Total Bilirubin 1.6 H, AST 46 H, ALT 30, Alkaline Phosphatase 55, Total Protein 6.2 L, Albumin 4.0, Globulin 2.2, Albumin/Globulin Ratio 1.8 I & O for Last 24 hours: Intake & Output 05/11/25 05/12/25 05/13/25 05/14/25 23:59 23:59 23:59 23:59 Intake Total 870 / 1110 1050 / 1230 720 / 942 222 / 222 Output Total 750 / 1150 2400 / 2400 1450 / 1450 600 / 600 Balance 120 / -40 -1350 / -1170 -730 / -508 -378 / -378 Weight 181 lb 7 oz 181 lb 2 oz 178 lb 9.6 oz 177 lb Constitutional Constitutional: no acute distress *Routine Respiratory Exam Respiratory: Present CTA bilaterally and symmetric chest movement *Routine Cardiovascular Exam Cardiovascular: Present RRR, Normal S1 and Normal S2 *Routine Abdominal Exam Abdominal: Present soft and normoactive bowel sounds; Absent tenderness *Routine Extremities Exam Extremities: Present full ROM and normal capillary refill; Absent edema *Routine Skin Exam Skin: Present intact, dry and warm Detailed Neck Exam: Thyroids Thyroid: Absent bruit Progress Note: A&P Assessment and plan (1) Chest pain: Status: Acute (2) Heart palpitations: Status: Acute (3) Nausea: Status: Acute (4) Dizziness: Status: Acute (5) Elevated brain natriuretic peptide (BNP) level: Status: Acute (6) Anxiety: Status: Acute Assessment and Plan Assessment and Plan for All Diagnoses:: Chest pain-resolved History of CABG History of anxiety EKG upon presentation negative for STEMI Troponins negative x 3 Echocardiogram shows normal biventricular systolic function, biatrial dilation and mild MR/TR/PI Abnormal stress 05/13 [facility] scheduled for today and pending Continue aspirin and statin CV summary 05/13/2025: [facility] pending.
[2025-05-14] MEDS: LIDOCAINE 1% 10ML MDV 10 ML IJ (10:38)
[2025-05-14] MEDS: 0.9 % SODIUM CHLORIDE 500 ML 25 ML IV (10:38)
[2025-05-14] MEDS: HEPARIN 1,000 UNITS/500ML NS (CATH LAB) 3000 UNIT IV (10:38)
[2025-05-14] MEDS: FENTANYL 100MCG/2ML VIAL 50 MCG IV (11:06)
[2025-05-14] MEDS: MIDAZOLAM HCL 1MG/ML 5ML VIAL 1 MG IV (11:06)
[2025-05-14] MEDS: HEPARIN 1,000 UNITS/ML 10ML VIAL (CATH LAB) 5000 UNIT IV (11:06)
--- NOTE | 2025-05-14 11:22 | SUR.PHASEII ---
Called [facility] for patient transport
--- NOTE | 2025-05-14 12:46 | EXP.DC.SUM ---
General Admission date:: 05/11/25 Discharge date: 05/14/25 HPI HPI HPI: Ms. Hector is a 79-year-old female presents ER with complaints of chest pain. Patient has past medical history of coronary artery disease, hypertension, hyperlipidemia, GERD, pancreatitis, diverticulitis, and M?ni?re's disease. Patient states that Monday she had some chest pain that radiated to her left arm. She states her neighbor came over and they talked and she was able to calm down. She states that 0400 this morning she had the same type of chest pain rating to left shoulder. She states the pain is constant but is unable to describe it. She states it is in her left chest. She reports diaphoresis. She states she breaks out in a sweat with exertion. She reports some dizziness and nausea here in the ER. She states she just has not been feeling good all this week. She does admit to some increased anxiety lately. She states she worries about not being able to do what she wants to do due to illness. Patient denies fever/chills, cough, congestion, runny nose, dyspnea, vomiting, diarrhea, constipation, headache, lightheadedness, or syncope. Alem, ER provider reports that patient took 2 325 mg aspirins last night and she received nitro by EMS prior to arrival. She reports pain had went from 7/10 - 5/10. She states she gave her a second nitro and her pain went down to a 2 out of 10. Hospital Course Hospital Course Hospital Course: 79-year-old female with history of CABG who presented with chest pain. Concern for anxiety versus unstable angina. Was taken for stress test during admission and found to have area of reversible ischemia. Heart cath was recommended. Patient contemplated as she normally follows with cardiology at a different facility. Decided to proceed with left heart cath. Tolerated procedure well. Chest pain resolved. Dizziness improving. Stable to discharge home with close outpatient follow-up. Problems addressed as follows: Chest pain-resolved History of CABG History of anxiety Presented with left-sided chest pain. Also having dizziness but has had a flare of her M?ni?re's in the past 3 weeks. EKG upon presentation negative for STEMI. troponins negative x 3. Echocardiogram shows normal biventricular systolic function, biatrial dilation and mild MR/TR/PI. Recommended stress test. Obtained on 05/13 showing area of reversible ischemia. Patient elected to proceed with left heart cath. Left heart cath performed on 05/14. Found to have critical disease in the saphenous vein graft supplying the circumflex artery. Successfully stented with 1 drug-eluting stent. Normal LVEDP and preserved EF. Continue aspirin 81 mg daily and Plavix 75 mg daily. No other changes to home regimen. Dizziness: Initiated on scopolamine patch for dizziness. Had improvement in symptoms. Anxiety: Continue Xanax 0.25 mg 3 times a day as needed. Discussed initiating SSRI, patient states she has had side effects in the past and does not want to start any at this time. Will defer further discussion to PCP. Labs with normal kidney function, BUN 24, creatinine 1.1, potassium 3.4, magnesium 1.8. Repeat CBC, CMP, magnesium ordered for the morning. Total time spent on discharge 32 minutes in counseling, documentation, chart review, and direct care with patient. Exam Data for Last 24 hours Vital signs and Labs for Last 24 Hours: Temp Pulse Resp BP Pulse Ox O2 Del Method 98.0 F 58 L 20 140/66 98 Room Air 05/12/25 08:00 05/12/25 08:00 05/12/25 08:00 05/12/25 08:00 05/12/25 08:00 05/12/25 08:00 Laboratory Results - last 24 hr 05/11/25 10:45: Lactate 0.8, Troponin I 0.02 05/11/25 12:31: VBG pH 7.53 H, VBG pCO2 23.9 L, VBG pO2 40.5 H, VBG HCO3 19.3 L, VBG Total CO2 20.1 L, VBG O2 Saturation 81.0 H, VBG Base Excess -3.4 L, VBG Lactic Acid 1.1 05/12/25 06:01: WBC 4.3 L, RBC 3.88 L, Hgb 12.5, Hct 37.6, MCV 96.9, MCH 32.2 H, MCHC 33.2, RDW 13.1, Plt Count 111 L, MPV 11.9 H, Neut % (Auto) 67.1, Lymph % (Auto) 21.2, [place] % (Auto) 10.2 H, Eos % (Auto) 0.5, Baso % (Auto) 0.5, Neut # (Auto) 2.9, Lymph # (Auto) 0.9, [place] # (Auto) 0.4, Eos # (Auto) 0.0, Baso # (Auto) 0.0, Sodium 139, Potassium 3.6, Chloride 104, Carbon Dioxide 28, Anion Gap 10.6, BUN 17, Creatinine 1.00, Estimated Creat Clear 60, Estimated GFR 54 L, Est GFR ( Amer) 65, Glucose 103 H, Calcium 8.9, Magnesium 2.0, Total Bilirubin 1.2, AST 36, ALT 26, Alkaline Phosphatase 64, Total Protein 6.2 L, Albumin 4.1 D, Globulin 2.1, Albumin/Globulin Ratio 2.0 H I & O for Last 24 hours: Intake & Output 05/09/25 05/10/25 05/11/25 05/12/25 23:59 23:59 23:59 23:59 Intake Total 870 / 1110 510 / 510 Output Total 750 / 1150 1100 / 1100 Balance 120 / -40 -590 / -590 Weight 82.299 kg 82.157 kg Constitutional Constitutional: no acute distress, obese, chronically ill appearing and cooperative *Routine HEENT Exam Head: Present normocephalic Eye: Present EOMI and PERRL ENT: Present mucous membranes moist *Routine Neck Exam Neck: Present supple; Absent lymphadenopathy *Routine Respiratory Exam Respiratory: Present CTA bilaterally; Absent rhonchi, wheezes or crackles *Routine Cardiovascular Exam Cardiovascular: Present RRR *Routine Abdominal Exam Abdominal: Present soft and normoactive bowel sounds; Absent tenderness *Routine Rectal Exam Patient deferred: visual exam *Routine Exam Patient deferred: external exam *Routine Extremities Exam Extremities: Absent cyanosis or clubbing Comments: Lipedema in arms and legs *Routine Skin Exam Skin: Present intact and warm; Absent rash *Routine Neurological Exam Neurological: Present alert, oriented X3 and moving all extremities; Absent altered mental status Results Data Completed and Pending Labs on day of discharge: Labs from last 24 hours 05/12/25 05/11/25 05/11/25 06:01 12:31 10:45 WBC 4.3 L RBC 3.88 L Hgb 12.5 Hct 37.6 MCV 96.9 MCH 32.2 H MCHC 33.2 RDW 13.1 Plt Count 111 L MPV 11.9 H Neut % (Auto) 67.1 Lymph % (Auto) 21.2 [place] % (Auto) 10.2 H Eos % (Auto) 0.5 Baso % (Auto) 0.5 Neut # (Auto) 2.9 Lymph # (Auto) 0.9 [place] # (Auto) 0.4 Eos # (Auto) 0.0 Baso # (Auto) 0.0 VBG pH 7.53 H VBG pCO2 23.9 L VBG pO2 40.5 H VBG HCO3 19.3 L VBG Total CO2 20.1 L VBG O2 Saturation 81.0 H VBG Base Excess -3.4 L VBG Lactic Acid 1.1 Sodium 139 Potassium 3.6 Chloride 104 Carbon Dioxide 28 Anion Gap 10.6 BUN 17 Creatinine 1.00 Estimated Creat Clear 60 Estimated GFR 54 L Est GFR ( Amer) 65 Glucose 103 H Lactate 0.8 Calcium 8.9 Magnesium 2.0 Total Bilirubin 1.2 AST 36 ALT 26 Alkaline Phosphatase 64 Troponin I 0.02 Total Protein 6.2 L Albumin 4.1 D Globulin 2.1 Albumin/Globulin Ratio 2.0 H DS: Diagnosis Discharge Diagnosis (1) Chest pain: Status: Acute Code(s): R07.9 - Chest pain, unspecified (2) Heart palpitations: Status: Acute Code(s): R00.2 - Palpitations (3) Nausea: Status: Acute Code(s): R11.0 - Nausea (4) Dizziness: Status: Acute Code(s): R42 - Dizziness and giddiness (5) Elevated brain natriuretic peptide (BNP) level: Status: Acute Code(s): R79.89 - Other specified abnormal findings of blood chemistry (6) Anxiety: Status: Acute Code(s): F41.9 - Anxiety disorder, unspecified Meds Home Medications and Allergies Home Medications ?Medication ?Instructions ?Recorded ?Confirmed ?Type alprazolam 0.25 mg tablet 0.25 mg PO TIDP PRN Anxiety 01/06/19 05/11/25 History atorvastatin 10 mg tablet (Lipitor) 10 mg PO HS 01/06/19 05/11/25 History cevimeline 30 mg capsule 30 mg PO TID 01/06/19 05/11/25 History colchicine 0.6 mg tablet 0.6 mg PO DAILY 01/06/19 05/11/25 History hydroxychloroquine 200 mg tablet 200 mg PO BID Arthritis 01/06/19 05/11/25 History nitroglycerin 0.4 mg sublingual 0.4 mg sublingual Q5MINP PRN Chest 08/30/19 05/11/25 History tablet Pain aspirin 81 mg tablet,delayed 81 mg PO DAILY 01/04/20 05/11/25 History release atenolol 50 mg tablet 50 mg PO DAILY 01/04/20 05/11/25 History cyclosporine 0.05 % eye drops in a 1 drp ophthalmic (eye) DAILY dry 01/04/20 05/11/25 History dropperette (Restasis) eyes cyanocobalamin (vitamin B-12) 1,000 mcg IM MONTHLY 08/21/24 05/11/25 History 1,000 mcg/mL injection solution vonoprazan 20 mg tablet (Voquezna) 20 mg PO DAILY #90 tabs 09/23/24 05/11/25 Rx cholecalciferol (vitamin D3) 125 125 mcg PO DAILY 12/18/24 05/11/25 History mcg (5,000 unit) capsule colestipol 1 gram tablet 1 g PO BID Cholesterol 12/18/24 05/11/25 History furosemide 20 mg tablet 20 mg PO DAILYP PRN Fluid 12/18/24 05/11/25 History vibegron 75 mg tablet (Gemtesa) 75 mg PO DAILY 12/18/24 05/11/25 History calcium polycarbophil 625 mg 625 mg PO DAILY 03/24/25 05/11/25 History tablet (FiberCon) [id number] 1 cap PO AC 03/26/25 05/11/25 History 36,000-114,000-180,000 unit capsule,delay rel (Creon) azelastine 137 mcg-fluticasone 50 1 spray intranasal BID 05/11/25 05/11/25 History mcg/spray nasal spray (Dymista) cetirizine 10 mg capsule (Zyrtec) 10 mg PO DAILYP PRN allergy 05/11/25 05/11/25 History symptoms ondansetron HCl 4 mg tablet 4 mg PO Q8HP PRN nausea and 05/11/25 05/11/25 History vomiting clopidogrel 75 mg tablet 75 mg PO DAILY 30 days #30 tabs 05/14/25 Rx scopolamine base 1 mg over 3 days 1 patch transdermal Q3D PRN nausea 05/15/25 Rx transdermal patch and vomiting #10 ea New Prescriptions to Start Prescriptions: clopidogrel Huy Gallegos scopolamine base Huy Gallegos Allergies Allergy/AdvReac Type Severity Reaction Status Date / Time Penicillins Allergy Intermediate Rash Verified 03/26/25 10:11 ibuprofen (From Motrin) Allergy Mild Rash Verified 03/26/25 10:11 sulfamethoxazole (From Allergy Unknown Verified 03/26/25 10:11 Bactrim) allergy reaction trimethoprim (From Bactrim) Allergy Unknown Verified 03/26/25 10:11 allergy reaction Discharge Plan Disposition Patient Disposition: Home, Self-Care Condition: Fair Follow up Plan Follow up with: Prema Darby APRN [Nurse Practitioner, Cardiology] - 05/21/25 10:15 am Catherine Saha APRN [Primary Care Provider, Medical] - 05/22/25 10:45 am Prescriptions/Medication Reconciliation: New clopidogrel 75 mg Tablet 75 mg PO DAILY 30 Days Qty: 30 0RF scopolamine base 1 mg over 3 days patch 3 day 1 patch transdermal Q3D PRN (Reason: nausea and vomiting) Qty: 10 1RF Continued Gemtesa 75 mg tablet 75 mg PO DAILY cholecalciferol (vitamin D3) 125 mcg (5,000 unit) capsule 125 mcg PO DAILY Voquezna 20 mg tablet 20 mg PO DAILY Qty: 90 3RF cyanocobalamin (vitamin B-12) 1,000 mcg/mL solution 1,000 mcg IM MONTHLY atorvastatin [Lipitor] 10 MG tablet 10 mg PO HS alprazolam 0.25 MG tablet 0.25 mg PO TIDP PRN (Reason: Anxiety) cevimeline 30 MG capsule 30 mg PO TID hydroxychloroquine 200 MG tablet 200 mg PO BID Patient Comments: 1 a day. 2 the next day colchicine 0.6 MG tablet 0.6 mg PO DAILY azelastine-fluticasone [Dymista] 137-50 mcg/spray spray,non-aerosol 1 spray INTRANASAL BID ondansetron HCl 4 mg tablet 4 mg PO Q8HP PRN (Reason: nausea and vomiting) Zyrtec 10 mg capsule 10 mg PO DAILYP PRN (Reason: allergy symptoms) nitroglycerin 0.4 MG tablet, sublingual 0.4 mg sublingual Q5MINP PRN (Reason: Chest Pain) aspirin 81 MG tablet,delayed release (DR/EC) 81 mg PO DAILY atenolol 50 MG tablet 50 mg PO DAILY cyclosporine [Restasis] 1 EACH dropperette 1 drp ophthalmic (eye) DAILY colestipol 1 gram tablet 1 g PO BID furosemide 20 mg tablet 20 mg PO DAILYP PRN (Reason: Fluid) calcium polycarbophil [FiberCon] 625 mg Tablet 625 mg PO DAILY Creon 36,000-114,000- 180,000 unit capsule,delayed release(DR/EC) 1 cap PO AC Rx Instructions: Take 1 capsule by mouth before meals/snacks max 6XD Other Ambulatory Orders: Basic Metabolic Panel (Routine) Timeframe: 1 Week Facility: [facility] - Location: Laboratory Ordered By: Roc Chew Complete Blood Count Auto Diff (Routine) Timeframe: 1 Week Facility: [facility] - Location: Laboratory Ordered By: Roc Chew Problem Reconciliation Problems Reviewed?: Yes Patient Discharge Instructions ACTIVITY: Continue current activity DIET: continue same diet Patient Instructions: DI for Cardiac Stress Test, DI for Chest Pain Print Language: Italian Providers Primary Care Provider: Catherine Saha Admit Provider: Huy Gallegos Attending Provider: Huy Gallegos
[2025-05-14] MEDS: IOPAMIDOL-370 (76%);100ML BOTTLE 60 ML IV (12:59)
[2025-05-14 13:01] LABS: CATHL Activated Clotting Time 332 SEC (74-125)
[2025-05-14] MEDS: LIPASE/PROTEASE/AMYLASE 1 EACH CAPSULE.DR PO (13:17)
--- NOTE | 2025-05-14 15:00 | HMH.PHAINT1 ---
Pharmacy Intervention Comments: DISCHARGE COUNSELING PROVIDED TO PATIENT. MEDICATION FROM CLINIC PHARMACY ON BEDSIDE TABLE. PT PLEASANT. PT REPEATED BACK INFO AND VERBALIZED UNDERSTANDING.
--- NOTE | 2025-05-19 11:52 | SW/DCPLANNER ---
Spoke with patient on the phone. Patient stated that she is doing good and that she was back in the ER over the weekend with chest pain. Patient stated that she was able to get her new medicine picked up. Patient stated that she is aware of her upcoming appointments. Patient stated that she has no concerns or questions at this time. Angela HURST Disposal Man
== END 2025-05-14 16:08 | disposition home or self-care (01) ==
LOC: ER 05:42 → 2ND 05:43
PROVIDERS: Internal Medicine; Nurse Practitioner Family; Admitting Provider Internal Medicine Adolescent Medicine; Emergency Provider Emergency Medicine; PCP Nurse Practitioner Family; Visit Provider Internal Medicine Adolescent Medicine
PROC: 4A023N7 Measurement of Cardiac Sampling and Pressure, Left Heart, Percutaneous Approach (ICD-10-PCS; CPT 93452; principal; 2025-05-14 09:15)
DX: R79.89 Other specified abnormal findings of blood chemistry; F41.9 Anxiety disorder, unspecified; R07.89 Other chest pain; I45.10 Unspecified right bundle-branch block; Z95.5 Presence of coronary angioplasty implant and graft; K21.9 Gastro-esophageal reflux disease without esophagitis; I10 Essential (primary) hypertension; E78.5 Hyperlipidemia, unspecified; I25.10 Atherosclerotic heart disease of native coronary artery without angina pectoris; H81.09 Meniere's disease, unspecified ear; Z79.899 Other long term (current) drug therapy; Z79.82 Long term (current) use of aspirin; Z88.6 Allergy status to analgesic agent; Z88.1 Allergy status to other antibiotic agents; Z88.0 Allergy status to penicillin
CPT/HCPCS: 36415; 71045; 78452; 80053; 82803; 83605; 83735; 83880; 84484; 85025; 85347; 85378; 85610; 92937; 92978; 92979; 93005; 93017; 93018; 93306; 93459; 99152; 99153; A9502; C1725; C1760; C1769; C1874; C1894; C9604; G0378; J1200; J1644; J1650; J2003; J2250; J2405; J2785; J3010; J7040; Q9967

== ENCOUNTER 2025-05-17 08:57 | Emergency (ER) | payer MEDICARE, BC, SELFPAY ==
[2025-05-17] VITALS (13 sets, daily range): BP systolic 107–139; BP diastolic 48–76; PULSE 55–62; RESP 13–18; TEMP 36.8–36.9; O2SAT 94–99; BMI 47.5
--- NOTE | 2025-05-17 08:56 | ECG_ITS ---
APPROVED REPORT Exam: Resting ECG HR:59 bpm ECG Measurements Heart Rate 59 AXES DE 143 P 54 QRSd 118 QRS 56 QT 430 T 227 QTc 428 Conclusion SINUS BRADYCARDIA POSSIBLE RIGHT VENTRICULAR CONDUCTION DELAY [RSR (QR) IN V1/V2] MODERATE T-WAVE ABNORMALITY, CONSIDER ANTEROLATERAL ISCHEMIA [-0.1+ mV T-WAVE IN V3-V6] ABNORMAL ECG Electronically signed by : Renzo Alonso, 05/17/2025 10:29:05
--- NOTE | 2025-05-17 09:07 | XR_ITS ---
PROCEDURE INFORMATION: Exam: XR Chest Exam date and time: 05/17/2025 9:27 AM Age: 79 years old Clinical indication: Pain; Chest pressure; Prior surgery; Surgery date: 3-7 days post-operative; Surgery type: Stents placed 3 days ago; Additional info: Chest pain, recent stent placement TECHNIQUE: Imaging protocol: Radiologic exam of the chest. Views: 1 view. COMPARISON: CR XR CHEST PORTABLE 05/11/2025 5:24 AM FINDINGS: Lungs: Unremarkable. No consolidation. Pleural spaces: Unremarkable. No pleural effusion. No pneumothorax. Heart/Mediastinum: Cardiac silhouette stable. Bones/joints: Median sternotomy wires. IMPRESSION: No acute findings.
--- NOTE | 2025-05-17 09:16 | [facility].EDCP ---
Discharge Plan Disposition Patient Disposition: Home, Self-Care Condition: Good Prescriptions Prescriptions: New isosorbide mononitrate 30 mg tablet extended release 24 hr 30 mg PO DAILY Qty: 30 3RF No Action Gemtesa 75 mg tablet 75 mg PO DAILY cholecalciferol (vitamin D3) 125 mcg (5,000 unit) capsule 125 mcg PO DAILY Voquezna 20 mg tablet 20 mg PO DAILY Qty: 90 3RF cyanocobalamin (vitamin B-12) 1,000 mcg/mL solution 1,000 mcg IM MONTHLY atorvastatin [Lipitor] 10 MG tablet 10 mg PO HS alprazolam 0.25 MG tablet 0.25 mg PO TIDP PRN (Reason: Anxiety) cevimeline 30 MG capsule 30 mg PO TID hydroxychloroquine 200 MG tablet 200 mg PO BID Patient Comments: 1 a day. 2 the next day colchicine 0.6 MG tablet 0.6 mg PO DAILY azelastine-fluticasone [Dymista] 137-50 mcg/spray spray,non-aerosol 1 spray INTRANASAL BID ondansetron HCl 4 mg tablet 4 mg PO Q8HP PRN (Reason: nausea and vomiting) Zyrtec 10 mg capsule 10 mg PO DAILYP PRN (Reason: allergy symptoms) clopidogrel 75 mg Tablet 75 mg PO DAILY 30 Days Qty: 30 0RF scopolamine base 1 mg over 3 days patch 3 day 1 patch transdermal Q3D PRN (Reason: nausea and vomiting) Qty: 10 1RF nitroglycerin 0.4 MG tablet, sublingual 0.4 mg sublingual Q5MINP PRN (Reason: Chest Pain) aspirin 81 MG tablet,delayed release (DR/EC) 81 mg PO DAILY atenolol 50 MG tablet 50 mg PO DAILY cyclosporine [Restasis] 1 EACH dropperette 1 drp ophthalmic (eye) DAILY colestipol 1 gram tablet 1 g PO BID furosemide 20 mg tablet 20 mg PO DAILYP PRN (Reason: Fluid) calcium polycarbophil [FiberCon] 625 mg Tablet 625 mg PO DAILY Creon 36,000-114,000- 180,000 unit capsule,delayed release(DR/EC) 1 cap PO AC Rx Instructions: Take 1 capsule by mouth before meals/snacks max 6XD Referrals Follow up/Referrals: Roc Chew MD [Staff Physician, Cardiology] - See instructions Activity Restrictions/Add. Instructions Additional Instructions/Restrictions: I want you to start taking 30 mg of Imdur (isosorbide mononitrate) every morning. This medication can cause some nausea, lightheadedness, and headaches that should improve over time. This should help with the chest pain that you are experiencing. If you experience recurrent pain in spite of taking this medication please return to the emergency department. Dr. Chew has scheduled you an appointment for 11 AM in the clinic. Clinical Impressions Clinical Impression: Chest pain Instructions Patient Instructions: DI for Chest Pain Print Language Print Language: German Discharge ED Provider: Renzo Alonso General Chief Complaint: Chest Pain Stated Complaint: CP Time Seen by Provider: 05/17/25 09:00 History of Present Illness HPI narrative: This is a 79-year-old female patient, with past medical history of coronary artery disease status post CABG and percutaneous coronary intervention, who is presenting to the emergency department today for evaluation of chest pain. The patient underwent cardiac stenting with Dr. Chew on 05/14/2025 for critical disease noted in the saphenous vein graft supplying her circumflex artery. She was started on dual antiplatelet therapy with aspirin and Plavix and discharged home. She states this morning she woke up at around 7 AM and began experiencing chest pain radiating to the left arm. She took 2 sublingual nitroglycerin doses at home and her pain did improve but did not resolve. She did not note an exertional component to her pain, she does not describe this as a tearing nature. She is not short of breath. EMS was called to her home and administered aspirin. She has not had any lower extremity erythema or edema. Related Data Home Medications ?Medication ?Instructions ?Recorded ?Confirmed alprazolam 0.25 mg tablet 0.25 mg PO TIDP PRN Anxiety 01/06/19 05/17/25 atorvastatin 10 mg tablet (Lipitor) 10 mg PO HS 01/06/19 05/17/25 cevimeline 30 mg capsule 30 mg PO TID 01/06/19 05/17/25 colchicine 0.6 mg tablet 0.6 mg PO DAILY 01/06/19 05/17/25 hydroxychloroquine 200 mg tablet 200 mg PO BID Arthritis 01/06/19 05/17/25 nitroglycerin 0.4 mg sublingual 0.4 mg sublingual Q5MINP PRN Chest 08/30/19 05/17/25 tablet Pain aspirin 81 mg tablet,delayed 81 mg PO DAILY 01/04/20 05/17/25 release atenolol 50 mg tablet 50 mg PO DAILY 01/04/20 05/17/25 cyclosporine 0.05 % eye drops in a 1 drp ophthalmic (eye) DAILY dry 01/04/20 05/17/25 dropperette (Restasis) eyes cyanocobalamin (vitamin B-12) 1,000 mcg IM MONTHLY 08/21/24 05/17/25 1,000 mcg/mL injection solution cholecalciferol (vitamin D3) 125 125 mcg PO DAILY 12/18/24 05/17/25 mcg (5,000 unit) capsule colestipol 1 gram tablet 1 g PO BID Cholesterol 12/18/24 05/17/25 furosemide 20 mg tablet 20 mg PO DAILYP PRN Fluid 12/18/24 05/17/25 vibegron 75 mg tablet (Gemtesa) 75 mg PO DAILY 12/18/24 05/17/25 calcium polycarbophil 625 mg 625 mg PO DAILY 03/24/25 05/17/25 tablet (FiberCon) [id number] 1 cap PO AC 03/26/25 05/17/25 36,000-114,000-180,000 unit capsule,delay rel (Creon) azelastine 137 mcg-fluticasone 50 1 spray intranasal BID 05/11/25 05/17/25 mcg/spray nasal spray (Dymista) cetirizine 10 mg capsule (Zyrtec) 10 mg PO DAILYP PRN allergy 05/11/25 05/17/25 symptoms ondansetron HCl 4 mg tablet 4 mg PO Q8HP PRN nausea and 05/11/25 05/17/25 vomiting Previous Rx's ?Medication ?Instructions ?Recorded vonoprazan 20 mg tablet (Voquezna) 20 mg PO DAILY #90 tabs 09/23/24 clopidogrel 75 mg tablet 75 mg PO DAILY 30 days #30 tabs 05/14/25 scopolamine base 1 mg over 3 days 1 patch transdermal Q3D PRN nausea 05/15/25 transdermal patch and vomiting #10 ea isosorbide mononitrate 30 mg 30 mg PO DAILY Angina #30 tabs 05/17/25 tablet,extended release 24 hr Allergies Allergy/AdvReac Type Severity Reaction Status Date / Time Penicillins Allergy Intermediate Rash Verified 05/17/25 12:23 ibuprofen (From Motrin) Allergy Mild Rash Verified 05/17/25 12:23 sulfamethoxazole (From Allergy Unknown Verified 05/17/25 12:23 Bactrim) allergy reaction trimethoprim (From Bactrim) Allergy Unknown Verified 05/17/25 12:23 allergy reaction PFSH PFSH Disclaimer: The information contained in this section may have been updated after the patient was seen, as this information can be updated by other users. Medical History (Updated 05/17/25 @ 13:01 by Renzo Alonso DO) Anxiety Diverticulitis Pancreatitis Hyperlipidemia Hypertension Rheumatoid arthritis Osteoarthritis Hemorrhoids Heart disease Gout GERD (gastroesophageal reflux disease) Colon polyps Colitis CAD (coronary artery disease) History of blood transfusion Surgical History H/O left wrist surgery History of right hip replacement History of cholecystectomy History of back surgery Hx of CABG H/O right wrist surgery Family History Father Cancer Social History Smoking Status: Never smoker alcohol intake: never substance use type: denies use current occupational status: retired Travel in the last 8 weeks?: None caffeine: Yes Have you lived/traveled outside US in past 30 days?: No Contact w/someone who lives/traveled outside US past 30 days?: No Exposure to someone with infectious disease in past 14 days?: No Do you have a fever (greater than 100.4 F or 38 C)?: No Have you tested positive for COVID-19?: No Exposed to someone with COVID-19 in past 14 days?: No Do you have a sore throat?: No Do you have a cough?: No Do you have any weakness?: No Do you have any diarrhea?: No Are you experiencing any unusual bleeding?: No Do you have any muscle aches/pain?: No Do you have any abdominal pain?: No Are you experiencing loss of taste or smell?: No Other Medical History Have you received the Flu Vaccine for this season: No Have you received the Pneumonia Vaccine: No ROS Obtained: Yes Systems reviewed as appropriate & no additional complaints except as documented Physical Exam General General appearance: alert and in no apparent distress Head Head exam: atraumatic and normocephalic Eye Eye exam: Present normal appearance and PERRL ENT ENT exam: Present normal oropharynx and mucous membranes moist Neck Neck exam: Present full ROM and trachea midline Chest Chest inspection: Present symmetric chest wall rise Respiratory Respiratory exam: Present normal lung sounds bilaterally Cardiovascular Cardiovascular exam: Present regular rate and normal rhythm Abdominal Exam Abdominal exam: Present soft; Absent tenderness Extremities Exam Extremities exam: Present normal inspection; Absent tenderness Back Exam Back exam: Absent CVA tenderness (R) or CVA tenderness (L) Neurological Exam Neurological exam: Present alert and oriented X3 HEART Score HEART Score HEART Score assessment performed?: Yes History (anamnesis): Moderately suspicious ECG: Non-specific disturbance Age: >65 years Risk factors: Atherosclerosis history Troponin: 1-3x normal limit HEART Score: 7 Critical Care Critical Care Time Critical Care Time: No Medical Decision Making Earl Inquiry Pt receiving controlled substance: No Vital Signs Vital Signs: 05/17/25 08:55 05/17/25 09:01 05/17/25 09:20 Temperature 98.3 F Temperature Source Oral Pulse Rate 60 60 Pulse Rate [Right] 59 L Respiratory Rate 17 15 Blood Pressure 131/66 128/65 Blood Pressure [Right Arm] 131/66 Blood Pressure Mean Blood Pressure Mean [Right Arm] 87 Blood Pressure Source Blood Pressure Source [Right Arm] Automatic Cuff Blood Pressure Position Blood Pressure Position [Right Arm] Supine 02 Sat by Pulse Oximetry 97 99 99 Oxygen Delivery Method Room Air 05/17/25 09:20 05/17/25 09:30 05/17/25 09:36 Temperature 98.3 F Temperature Source Oral Pulse Rate 59 L 60 58 L Pulse Rate [Right] Respiratory Rate 15 16 Blood Pressure 131/66 132/66 Blood Pressure [Right Arm] Blood Pressure Mean Blood Pressure Mean [Right Arm] Blood Pressure Source Automatic Cuff Blood Pressure Source [Right Arm] Blood Pressure Position Supine Blood Pressure Position [Right Arm] 02 Sat by Pulse Oximetry 99 95 Oxygen Delivery Method Room Air 05/17/25 10:00 05/17/25 10:31 05/17/25 11:01 Temperature Temperature Source Pulse Rate 59 L 59 L 56 L Pulse Rate [Right] Respiratory Rate 13 17 15 Blood Pressure 129/66 130/58 L 125/48 L Blood Pressure [Right Arm] Blood Pressure Mean 73 Blood Pressure Mean [Right Arm] Blood Pressure Source Blood Pressure Source [Right Arm] Blood Pressure Position Blood Pressure Position [Right Arm] 02 Sat by Pulse Oximetry 96 98 99 Oxygen Delivery Method Room Air Room Air 05/17/25 11:31 05/17/25 11:38 05/17/25 12:01 Temperature Temperature Source Pulse Rate 55 L 56 L 60 Pulse Rate [Right] Respiratory Rate 16 16 18 Blood Pressure 107/55 L 107/55 L 112/76 Blood Pressure [Right Arm] Blood Pressure Mean 77 86 Blood Pressure Mean [Right Arm] Blood Pressure Source Blood Pressure Source [Right Arm] Blood Pressure Position Blood Pressure Position [Right Arm] 02 Sat by Pulse Oximetry 97 94 L 98 Oxygen Delivery Method Room Air 05/17/25 12:31 Temperature Temperature Source Pulse Rate 60 Pulse Rate [Right] Respiratory Rate 17 Blood Pressure 139/69 Blood Pressure [Right Arm] Blood Pressure Mean Blood Pressure Mean [Right Arm] Blood Pressure Source Blood Pressure Source [Right Arm] Blood Pressure Position Blood Pressure Position [Right Arm] 02 Sat by Pulse Oximetry 99 Oxygen Delivery Method Lab Data Labs: Lab Results 05/17/25 09:01: WBC 6.0, RBC 3.66 L, Hgb 12.1 L, Hct 35.8 L, MCV 97.8, MCH 33.1 H, MCHC 33.8, RDW 13.0, Plt Count 123 L, MPV 11.5 H, Neut % (Auto) 78.5, Lymph % (Auto) 11.4, [place] % (Auto) 8.9, Eos % (Auto) 0.7, Baso % (Auto) 0.3, Neut # (Auto) 4.7, Lymph # (Auto) 0.7, [place] # (Auto) 0.5, Eos # (Auto) 0.0, Baso # (Auto) 0.0, Sodium 134 L, Potassium 4.1, Chloride 102, Carbon Dioxide 23, Anion Gap 13.1, BUN 26 H, Creatinine 1.10 H, Estimated Creat Clear 29, Estimated GFR 48 L, Est GFR ( Amer) 58 L, Glucose 116 H, Calcium 9.3, Total Bilirubin 1.2, AST 37 H, ALT 29, Alkaline Phosphatase 63, Troponin I 0.05 H, NT-Pro-B Natriuret Pep 881 H, Total Protein 6.2 L, Albumin 4.0, Globulin 2.2, Albumin/Globulin Ratio 1.8, Lipase 120 05/17/25 12:01: Troponin I 0.04 H 05/17/25 09:01 05/17/25 09:01 Response Orders (Tests/Meds): ED MEDICATIONS Discontinued Medications Generic Name Dose Route Start Last Admin Trade Name Freq PRN Reason Stop Dose Admin Ondansetron HCl 4 mg 05/17/25 12:34 05/17/25 12:38 Ondansetron 4mg/2ml Vial IV 05/17/25 12:35 4 mg ONCE ONE Administration ORDERS Category Date Time Status XR chest portable Stat Exams 05/17/25 09:07 Completed Complete Blood Count Auto Diff Stat Lab 05/17/25 09:01 Completed Comprehensive Metabolic Panel Stat Lab 05/17/25 09:01 Completed Lipase Stat Lab 05/17/25 09:01 Completed NT Pro Brain Natriuretic Pep. Stat Lab 05/17/25 09:01 Completed Troponin I Q3H Lab 05/17/25 12:01 Completed Troponin I Q3H Lab 05/17/25 15:15 Ordered Troponin I Stat Lab 05/17/25 09:01 Completed ECG Data Tracing #1: ECG Narrative: EKG personally interpreted by me demonstrates sinus bradycardia with a rate of 59 bpm, normal axis, no MA prolongation, narrow QRS, no QTc prolongation. There are diffuse T wave inversions. When compared to prior EKGs this is largely unchanged. No evidence of acute ST elevation myocardial infarction. MDM Narrative Medical Decision Narrative: In summary, this is a 79-year-old female patient who is presenting to the emergency department 2 days status post percutaneous coronary intervention with chest pain rating to the left shoulder that responded well to 2 doses of nitroglycerin and aspirin. Her comorbidities include coronary artery disease for which she has had multivessel coronary artery bypass grafting as well as cardiac stenting in the past. On initial evaluation of the patient they were resting comfortably in no acute distress and nontoxic in appearance. They are hemodynamically stable, saturating well room air, and are neurologically intact. On examination the patient's heart and lungs are clear to auscultation bilaterally. Her radial pulses are equal and symmetric to palpation bilaterally. She does not have any lower extremity erythema or edema. Differential diagnosis includes ACS/TX, coronary thrombosis, pleural effusion, pulmonary edema, heart failure, among others Patient was worked up initially with hematologic labs and a chest x-ray as well as an EKG. Please see EKG interpretation above. EKG appears largely unchanged from prior. Chest x-ray personally interpreted by me demonstrates no evidence of pneumothorax or pleural effusion. Chest x-ray appears largely unchanged from prior. Labs personally interpreted by me demonstrate no actionable unreality's. Patient's initial troponin is 0.05 which is just above the upper limit of normal. We will pend a second troponin at 3-hour alonzo. Given that the patient had a percutaneous stent placed 3 days ago, did find it imperative to speak to Dr. Chew who placed the patient stent. I had an interactive discussion with Dr. Chew the infantry assaultman on-call and he has agreed with our workup and assessment thus far and he feels that if her second troponin is not significantly elevated that she is stable for discharge home with initiation of Imdur 30 mg daily and follow-up in the clinic on Monday at 11 AM. On repeat assessment of the patient she states that her pain has completely resolved. The patient was placed in observation status at 10 AM. Medical necessity for observational status is serial troponins. The patient was provided serial reevaluations and cardiac monitoring while awaiting results. The patient second troponin did result and decreased from 0.05-0.04. I do not feel that she is having acute coronary syndrome at this time. Because of these results I do feel the patient is stable for discharge home to follow-up as previously planned with Dr. Chew on Monday at 11 AM. Total time in observation 3 hours. We will start the patient on 30 mg Imdur daily. Patient knowledges understanding and is agreeable with this plan. At this time all questions have been answered and all parties are agreeable with the decision to discharge home
[2025-05-17 09:22] LABS: Hematocrit 35.8 % (37.0-47.0); Hemoglobin 12.1 g/dL (12.2-16.2); Immature Granulocytes % 0.2 %; Mean Corpuscular HGB Conc 33.8 g/dL (31.8-35.4); Mean Corpuscular Hemoglobin 33.1 pg (27.0-31.2); Mean Corpuscular Volume 97.8 fl (81-99); Nucleated Red Blood Cells % 0 %; Platelet Count 123 K/mm3 (142-424); Red Blood Count 3.66 M/mm3 (4.20-5.40); Red Cell Distribution Width-SD 46.2 fL; White Blood Count 6.0 K/mm3 (4.8-10.8)
--- NOTE | 2025-05-17 09:28 | PC.NURSE ---
RAD at BS @ this time
--- OUTSIDE RECORDS SUMMARY | 2025-05-17 09:29 | XMS_ITS | Encounter Summary ---
Author Organization [employer] ([place], [place], [place], [place]) Address [address] [place] [address] Care Team Providers Care American Board Certified Orthotist Name Role Phone José Miguel Verde MD Primary Care Provider + [phone] Encounter Details Date Type Department Care Team (Late st Contact Info) Description 07/15/2020 Transcribed Document [facility] [place] Family Medicine [address] [place] [address] ProviderNitin MD [address] [place] [address] Social History Tobacco Use Types [...] Conversion Note - Nitin ProviderMD - 07/15/2020 4:17 PM CDT Electronically signed by [facility] Conversion [employer] Printer Jessica at 02/26/2023 10:51 PM CDT documented in this encounter Plan of Treatment Not on file documented as of this encounter Visit Diagnoses Not on filedocumented in this encounter Care Teams American Board Certified Orthotist Relationship Specialty Start Date End Date José Miguel Verde MD [address] [place] [address] PCP - General Adolescent Medicine 03/07/23 documented as of this encounter
--- OUTSIDE RECORDS SUMMARY | 2025-05-17 09:29 | XMS_ITS | Referral Summary ---
Author Organization [employer] ([place], [place], [place], [place]) Address [address] [place] [address] Care Team Providers Care Child Support Investigator Name Role Phone José Miguel Verde MD Primary Care Provider + [phone] Allergies Active Allergy Reactions Criticality Noted Date [...] by mouth in the morning. Active pancrelipase, Pez-Xwmu-Rgwn, (CREON) 36,000-114,000 - 180,000 unit CpDR capsule [...] Date Hamilton rded Speak language other than Cypriot at home Not on file 12/01/2023 Want [...] 10:21 AM APPLET Tere Adamson RN * Because of a [...] on file Insurance MEDICARE PART A B Advance Directives For more information, please contact: [phone] * Full Code (Latest Code Status on File) Date Activated Date Inactivated Comments 03/10/2023 5:00 PM 03/11/2023 12:05 PM * Full Code Date Activated Date Inactivated Comments 03/07/2023 2:51 PM 03/10/2023 5:00 PM Care Teams Child Support Investigator Relationship Specialty Start Date End Date José Miguel Verde MD [address] [place] [address] PCP - General Adolescent Medicine 03/07/23
--- OUTSIDE RECORDS SUMMARY | 2025-05-17 09:29 | XMS_ITS | Data Portability ---
Author Organization [facility] Address [address] [place] [address] Care Team Providers Care Harm Reduction Worker Name Role Phone FROILAN BAGLEY Hematology/Oncology [phone] MEGAN TOM Rehabilitator Assessment No assessment recorded. Plan of Treatment [...] By Organization Details Last Modified Time 09/09/2019 [id number] gout: care instructions Not available 09/09/2019 09:47:00 thrombocytopenia : care instructions [email or web address] Not available 09/09/2019 09:47:00 body mass index: care instructions [email or web address] Not available 09/09/2019 09:47:00 Body Mass Index: Care Instructions-LC [email or web address] Not available 09/09/2019 09:46:59 learning about healthy weight [email or web address] Not available 09/09/2019 09:47:00 rheumatoid arthritis diet: care instructions [email or web address] Not available 09/09/2019 09:47:00 Rheumatoid Arthritis (RA): Care Instructions [email or web address] Not available 09/09/2019 09:47:00 Reason for Referral None Reported. Results Created Date Observation Date Name Description Value Unit Range Abnormal Flag Note LastModifiedBy Organization Detail LastModifiedTime 09/09/20 19 09/09/2019 CBC w/ auto diff white blood cells 5.7 K/uL 3.8-10 .8 normal Not Available [facility] [address] [place] [address], [phone], 09/09/2019 10:28:34 09/09/20 19 09/09/2019 CBC w/ auto diff red blood cells 4.35 M/uL 3.80-5 .20 normal Not Available [facility] [address] [place] [address], [address], 09/09/2019 10:28:34 09/09/20 19 09/09/2019 CBC w/ auto diff hemoglobin 14.2 g/dL 12.0-1 6.0 normal Not Available [facility] [address] [place] [address], [address], 09/09/2019 10:28:34 09/09/20 19 09/09/2019 CBC w/ auto diff hematocrit 41.2 % 35.0-4 7.0 normal Not Available [facility] [address] [place] [address], [address], 09/09/2019 10:28:34 09/09/20 19 09/09/2019 CBC w/ auto diff MCV 95 fL 80-100 normal Not Available [facility] [address] [place] [address], [address], 09/09/2019 10:28:34 09/09/20 19 09/09/2019 CBC w/ auto diff MCH 33 pg 26-35 normal Not Available [facility] [address] [place] [address], [address], 09/09/2019 10:28:34 09/09/20 19 09/09/2019 CBC w/ auto diff MCHC 34 g/dL 32-36 normal Not Available [facility] [address] [place] [address], [address], 09/09/2019 10:28:34 09/09/20 19 09/09/2019 CBC w/ auto diff RDW 13.8 % 11.0-1 5.0 normal Not Available [facility] [address] [place] [address], [address], 09/09/2019 10:28:34 09/09/20 19 09/09/2019 CBC w/ auto diff MPV 9.2 fL 6.2-10 .5 normal Not Available [facility] [address] [place] [address], [address], 09/09/2019 10:28:34 09/09/20 19 09/09/2019 CBC w/ auto diff platelet count 128 K/uL 130-40 0 low Not Available [facility] [address] [place] [address], [address], 09/09/2019 10:28:34 09/09/20 19 09/09/2019 CBC w/ auto diff neutrophil,a bsolute 4.4 K/uL 1.6-8. 4 normal Not Available [facility] [address] [place] [address], [address], 09/09/2019 10:28:34 09/09/20 19 09/09/2019 CBC w/ auto diff lymphocyte,a bsolute 0.7 K/uL 0.4-5. 1 normal Not Available [facility] [address] [place] [address], [address], 09/09/2019 10:28:34 09/09/20 19 09/09/2019 CBC w/ auto diff monocyte,abs olute 0.5 K/uL 0.0-1. 2 normal Not Available [facility] [address] [place] [address], [address], 09/09/2019 10:28:34 09/09/20 19 09/09/2019 CBC w/ auto diff eosinophil,a bsolute 0.1 K/uL 0.0-0. 8 normal Not Available [facility] [address] [place] [address], [address], 09/09/2019 10:28:34 09/09/20 19 09/09/2019 CBC w/ auto diff basophil,abs olute 0.0 K/uL 0.0-0. 3 normal Not Available [facility] [address] [place] [address], [address], 09/09/2019 10:28:34 09/09/20 19 09/09/2019 CBC w/ auto diff % neutrophils 76.0 % 42.0-7 8.0 normal Not Available [facility] [address] [place] [address], [address], 09/09/2019 10:28:34 09/09/20 19 09/09/2019 CBC w/ auto diff % lymphocytes 12.6 % 11.0-4 7.0 normal Not Available [facility] [address] [place] [address], [address], 09/09/2019 10:28:34 09/09/20 19 09/09/2019 CBC w/ auto diff % monocytes 8.8 % 0.0-11 .0 normal Not Available [facility] [address] [place] [address], [address], 09/09/2019 10:28:34 09/09/20 19 09/09/2019 CBC w/ auto diff % eosinophils 1.9 % 0.0-7. 0 normal Not Available [facility] [address] [place] [address], [address], 09/09/2019 10:28:34 09/09/2009/09/2019 CBC w/ auto diff % basophils 0.7 % 0.0-3. 0 normal Not Available [facility] [address] [place] [address], [address], 09/09/2019 10:28:34 09/09/20 19 09/09/2019 CBC w/ auto diff nucleated red cells 0.0 % 0.0-0. 9 normal Not Available [facility] [address] [place] [address], [address], 09/09/2019 10:28:34 09/09/20 19 09/09/2019 CBC w/ auto diff nucleated RBCs, absolute 0.00 K/uL not estab. normal Not Available [facility] [address] [place], [address], 09/09/2019 10:28:34 09/09/2009/09/2019 ldh, serum or plasm a LDH 248 U/L 135-21 4 high Not Available [facility] [address] [place], [address], 09/09/2019 11:26:41 09/09/2009/09/2019 vitam in B12 + folat e, serum or blood folic acid 18.4 NG/mL 4.8-24 .2 normal Not Available [facility] [address] [place], [address], 09/09/2019 11:43:22 09/09/20 19 09/09/2019 vitam in B12 + folat e, serum or blood vitamin B12 718 pg/mL 232-12 45 normal Not Available [facility] [address] [place], [address], 09/09/2019 11:43:22 09/09/2009/19/2019 JAYDEN (anti nucle ar [...] Patte rns (http s://d oi.or g/10. 1515/ [facility]- 2017- 0052) For addit ional infor roxanna monge refer to http: //sandip Barrientosia jovanni ics.c om/fa q/FAQ 177 (This link is being provi ded for infor david darnell/ educa sidney l purpo ses only. ) TEST PERFO RMED AT: [facility] [address] [facility] [place] [address] WHIT Carranza MD Not Available [facility] [address] [place] [address], [address], 09/19/2019 16:56:22 04/20/20 20 04/20/2020 CBC w/ auto diff white blood cells 5.9 K/uL 3.8-10 .8 normal Not Available [facility] [address] [place] [address], [address], 04/20/2020 11:52:50 04/20/20 20 04/20/2020 CBC w/ auto diff red blood cells 4.40 M/uL 3.80-5 .20 normal Not Available [facility] [address] [place] [address], [address], 04/20/2020 11:52:50 04/20/2004/20/2020 CBC w/ auto diff hemoglobin 14.5 g/dL 12.0-1 6.0 normal Not Available [facility] [address] [place] [address], [address], 04/20/2020 11:52:50 04/20/2004/20/2020 CBC w/ auto diff hematocrit 42.0 % 35.0-4 7.0 normal Not Available [facility] [address] [place] [address], [address], 04/20/2020 11:52:50 04/20/20 20 04/20/2020 CBC w/ auto diff MCV 96 fL 80-100 normal Not Available [facility] [address] [place] [address], [address], 04/20/2020 11:52:50 04/20/20 20 04/20/2020 CBC w/ auto diff MCH 33 pg 26-35 normal Not Available [facility] [address] [place] [address], [address], 04/20/2020 11:52:50 04/20/20 20 04/20/2020 CBC w/ auto diff MCHC 34 g/dL 32-36 normal Not Available [facility] [address] [place] [address], [address], 04/20/2020 11:52:50 04/20/20 20 04/20/2020 CBC w/ auto diff RDW 13.6 % 11.0-1 5.0 normal Not Available [facility] [address] [place] [address], [address], 04/20/2020 11:52:50 04/20/20 20 04/20/2020 CBC w/ auto diff MPV 9.0 fL 6.2-10 .5 normal Not Available [facility] [address] [place] [address], [address], 04/20/2020 11:52:50 04/20/20 20 04/20/2020 CBC w/ auto diff platelet count 132 K/uL 130-40 0 normal Not Available [facility] [address] [place] [address], [address], 04/20/2020 11:52:50 04/20/20 20 04/20/2020 CBC w/ auto diff neutrophil,a bsolute 3.9 K/uL 1.6-8. 4 normal Not Available [facility] [address] [place] [address], [address], 04/20/2020 11:52:50 04/20/20 20 04/20/2020 CBC w/ auto diff lymphocyte,a bsolute 1.3 K/uL 0.4-5. 1 normal Not Available [facility] [address] [place] [address], [address], 04/20/2020 11:52:50 04/20/20 20 04/20/2020 CBC w/ auto diff monocyte,abs olute 0.6 K/uL 0.0-1. 2 normal Not Available [facility] [address] [place] [address], [address], 04/20/2020 11:52:50 04/20/20 20 04/20/2020 CBC w/ auto diff eosinophil,a bsolute 0.1 K/uL 0.0-0. 8 normal Not Available [facility] [address] [place] [address], [address], 04/20/2020 11:52:50 04/20/20 20 04/20/2020 CBC w/ auto diff basophil,abs olute 0.1 K/uL 0.0-0. 3 normal Not Available [facility] [address] [place] [address], [address], 04/20/2020 11:52:50 04/20/20 20 04/20/2020 CBC w/ auto diff % neutrophils 65.0 % 42.0-7 8.0 normal Not Available [facility] [address] [place] [address], [address], 04/20/2020 11:52:50 04/20/20 20 04/20/2020 CBC w/ auto diff % lymphocytes 21.6 % 11.0-4 7.0 normal Not Available [facility] [address] [place] [address], [address], 04/20/2020 11:52:50 04/20/20 20 04/20/2020 CBC w/ auto diff % monocytes 10.0 % 0.0-11 .0 normal Not Available [facility] [address] [place] [address], [address], 04/20/2020 11:52:50 04/20/20 20 04/20/2020 CBC w/ auto diff % eosinophils 2.5 % 0.0-7. 0 normal Not Available [facility] [address] [place] [address], [address], 04/20/2020 11:52:50 04/20/20 20 04/20/2020 CBC w/ auto diff % basophils 0.9 % 0.0-3. 0 normal Not Available [facility] [address] [place] [address], [address], 04/20/2020 11:52:50 04/20/20 20 04/20/2020 CBC w/ auto diff nucleated red cells 0.1 % 0.0-0. 9 normal Not Available [facility] [address] [place] [address], [address], 04/20/2020 11:52:50 04/20/20 20 04/20/2020 CBC w/ auto diff nucleated RBCs, absolute 0.00 K/uL not estab. normal Not Available [facility] [address] [place] [address], [address], 04/20/2020 11:52:50 04/20/20 20 04/20/2020 CMP, serum or plasm a glucose 109 mg/dL 74-100 high Not Available [facility] [address] [place] [address], [address], 04/20/2020 12:16:18 04/20/20 20 04/20/2020 CMP, serum or plasm a blood urea nitrogen 24 mg/dL 6-20 high Not Available [facility] [address] [place] [address], [address], 04/20/2020 12:16:18 04/20/20 20 04/20/2020 CMP, serum or plasm a creatinine 1.07 mg/dL 0.50-0 .95 high Not Available [facility] [address] [place] [address], [address], 04/20/2020 12:16:18 04/20/20 20 04/20/2020 CMP, serum or plasm a BUN/creatini ne ratio 22 (calc ) 10-20 high Not Available [facility] [address] [place] [address], [address], 04/20/2020 12:16:18 04/20/20 20 04/20/2020 CMP, serum or plasm a sodium 143 mmol/ L 136-14 5 normal Not Available [facility] [address] [place] [address], [address], 04/20/2020 12:16:18 04/20/20 20 04/20/2020 CMP, serum or plasm a potassium 4.3 mmol/ L 3.4-5. 0 normal Not Available [facility] [address] [place] [address], [address], 04/20/2020 12:16:18 04/20/20 20 04/20/2020 CMP, serum or plasm a chloride 107 mmol/ L 98-107 normal Not Available [facility] [address] [place] [address], [address], 04/20/2020 12:16:18 04/20/20 20 04/20/2020 CMP, serum or plasm a carbon dioxide 24 mmol/ L 20-32 normal Not Available [facility] [address] [place] [address], [address], 04/20/2020 12:16:18 04/20/20 20 04/20/2020 CMP, serum or plasm a anion gap 12 (calc ) 7-25 normal Not Available [facility] [address] [place] [address], [address], 04/20/2020 12:16:18 04/20/20 20 04/20/2020 CMP, serum or plasm a calcium 9.7 mg/dL 8.6-10 .2 normal Not Available [facility] [address] [place] [address], [address], 04/20/2020 12:16:18 04/20/20 20 04/20/2020 CMP, serum or plasm a total protein 7.0 g/dL 6.4-8. 3 normal Not Available [facility] [address] [place] [address], [address], 04/20/2020 12:16:18 04/20/20 20 04/20/2020 CMP, serum or plasm a albumin 4.4 g/dL 3.5-5. 2 normal Not Available [facility] [address] [place] [address], [address], 04/20/2020 12:16:18 04/20/20 20 04/20/2020 CMP, serum or plasm a globulin 2.6 g/dL_ (calc ) 1.5-4. 5 normal Not Available [facility] [address] [place] [address], [address], 04/20/2020 12:16:18 04/20/2004/20/2020 CMP, serum or plasm a albumin/glob ulin ratio 1.7 (calc ) 1.1-2. 5 normal Not Available [facility] [address] [place] [address], [address], 04/20/2020 12:16:18 04/20/20 20 04/20/2020 CMP, serum or plasm a bilirubin, total 0.7 mg/dL 0.1-1. 2 normal Not Available [facility] [address] [place] [address], [address], 04/20/2020 12:16:18 04/20/20 20 04/20/2020 CMP, serum or plasm a alkaline phosphatase 71 U/L 35-105 normal Not Available [facility] [address] [place] [address], [address], 04/20/2020 12:16:18 04/20/20 20 04/20/2020 CMP, serum or plasm a AST 26 U/L 0-32 normal Not Available [facility] [address] [place] [address], [address], 04/20/2020 12:16:18 04/20/20 20 04/20/2020 CMP, serum or plasm a ALT 21 U/L 0-33 normal Not Available [facility] [address] [place], [address], 04/20/2020 12:16:18 04/20/20 20 04/20/2020 CMP, serum or plasm a GFR 59 >= 60 abnormal Not Available [facility] [address] [place], [address], 04/20/2020 12:16:18 04/20/20 20 04/20/2020 CMP, serum [...] month s or longe r. Not Available [facility] [address] [place], [address], 04/20/2020 12:16:18 09/11/20 19 09/11/2019 US, abdom en, limit ed [facility] [address] [place] [address] Patien t Name: GINA Carranza Patien t [...] Jason Man MD on 2018 9:[email or web address] [place] [address] Radiology [facility] [address] [place], [address], 09/23/2019 15:38:59 Result Notes None recorded. Procedures Surgical History Date Name Laterality Status Provider Name and Address Organization Details Recorded Time CABG completed Salma Billings [facility] 09/09/2019 09:08:09 Cholecystectomy completed Salma Billings [facility] 09/09/2019 09:08:17 [facility] 09:08:34 Back Surgery completed Salmarik Billings [facility] 09/09/2019 09:08:47 wrist repair completed Salma Billings [facility] 09/09/2019 09:09:41 debridement of leg ulcer completed Salma Billings [facility] 09/09/2019 09:10:18 Imaging Results None recorded. Procedure Notes None recorded. Medical Equipment None Reported. Allergies Allergen ID Allergen Name Allergen Category Reaction Reaction Severity Criticality Documentation Date Start Date Code Code System Note Provider Name and Address Organization Details Recorded Time 012902 Motrin medicatio n itching Not available Not available 09/09/201963439 8 [facility] 09:01:45 082123 Product containin g penicilli n (product) medicatio n rash Not available Not available 09/09/2019 19568 8001 SNOMED Salma Billings [facility] 9 09:01:54 Medications Name Sig Start Date Stop Date Status Note LastModified by Organization Details LastModified Time Plaquenil 200 mg tablet Take 1 tablet twice a day by oral route. active Not Available Not Available No t Available vitamin [id number] B1 1,000 mcg-100 mg/mL injection solution Take [...] Updated DateTime 04/20/2020 98.6 [degF] Norma Salcido [facility] 0 04/20/2020 12:51:11 Date Recorded Body height Body mass index (BMI) Body weight Heart rate Oxygen saturation Oxygen saturation in Arterial blood by Pulse oximetry Systolic And Diastolic Provider Name and Address Organization Details Last Updated DateTime 0 157.48 cm 40.5 kg/m2 500921. 01 g 63 /min 97 % 97 % 130/72 mm[Hg] [facility] 0 13:02:17 Date Recorded Body weight Body mass index (BMI) Body height Heart rate Oxygen saturation Oxygen saturation in Arterial blood by Pulse oximetry Body temperature Systolic And Diastolic Provider Name and Address Organization Details Last Updated DateTime 9 489219. 08 g 41.2 kg/m2 157.48 cm 65 /min 96 % 96 % 98.9 [degF] 122/62 mm[Hg] [facility] 9 09:19:53 Date Recorded Body height Heart rate Body temperature Body mass index (BMI) Body weight Systolic And Diastolic Provider Name and Address Organization Details Last Updated DateTime 9 157.48 cm 68 /min 99.1 [degF] 41.4 kg/m2 007402. 63 g 136/66 mm[Hg] Yessi King [facility] 9 15:09:42 Social History Question Answer Notes LastModified by Organizat ion Details LastModified Time Tobacco Smoking Status Never Smoker Yessi King [facility] 09/23/2019 15:10:42 How Much Tobacco Do You Chew? None [email or web address] Information not available 09/23/2019 Live Alone Or With Others? Alone Information not available 09/23/2019 Exposure To Smoke No [email or web address] Information not available 09/23/2019 Marital Status [email or web address] Informatio n not available 09/23/2019 What Was The Date Of Your Most Recent Tobacco Screening? 09/23/2019 [email or web address] Information not available 09/23/2019 How Many Children Do You Have? 1 Son 23 Years Ago [email or web address] Information not available 09/23/2019 How Much Tobacco Do You Smoke? No Information not available 04/20/2020 On What Date Was Tobacco Cessation Counseling Provided? 09/23/2019 [email or web address] Information not available 09/23/2019 How Many Years Have You Smoked Tobacco? 0 Information not available 04/20/2020 Sex: Female Functional Status Question Answer Note LastModified by [employer] ion Details LastModified Time What is your level of alcohol consumption? None [email or web address] Information not available 09/23/2019 Do you or have you ever used smokeless tobacco? Never used smokeless tobacco [email or web address] Information not available 09/23/2019 What is your occupation? Retired [email or web address] Information not available 09/23/2019 Do you or have you ever used e-cigarettes or vape? Never used electronic cigarettes [email or web address] Information not available 09/23/2019 Mental Status None [...] available 2018 09:10:42 Medical History Condition Response Heart Disease Y Heart Attack ([place]) Y Arthritis Y Depression Y Gynecological HistoryNo gynecological history recorded. Obstetrics History GPAL:G 0 P 0 0 0 0 Past Encounters Encounter ID Performer Location Encounter Start Date Encounter Closed Date Diagnosis/Indication Diagnosis SNOMED-CT Code Diagnosis ICD10 Code Diagnosis Note [id number] JASON WEISS MD CARDIOLOG Y [place] [address] [place] [id number] 04/03/2017 13:10:27 04/03/2017 13:49:50 [id number] JASON WEISS MD CARDIOLOG Y [place] [address] [place] [id number] 09/25/2017 12:53:34 09/25/2017 14:36:54 [id number] JASON WEISS MD CARDIOLOG Y [address] [place],[address] [place], [place] [id number] 04/02/2018 09:28:26 04/02/2018 11:01:03 [id number] JASON WEISS MD CARDIOLOG Y [address] [place],[address] [place], [place] [id number] 10/22/2018 13:48:50 10/22/2018 15:10:00 [id number] JASON WEISS MD CARDIOLOG Y [address] [place] [id number] 02/07/2019 11:09:23 02/07/2019 13:35:19 [id number] JASON WEISS MD CARDIOLOG Y [address] [place] [place], [place] [id number] 05/08/2019 13:19:05 05/08/2019 13:58:46 [id number] FROILAN BAGLEY MD HEM/ONC [facility] [id number] [place], [place] [id number] 09/09/2019 08:55:56 09/09/2019 09:56:44 Rheumatoid arthritis 82248492 M06.[address] Tom. Pt is on plaquenil and cevimeline . Gout 61566263 M10.9 Pt has begun colchicine . Body mass index 30+ - obesity 851325077 Z68.41 Encourage exercise and weight loss. Leukopenia 05157077 D72. 819 Differenti al includes for this and thrombocyt openia include vitamin deficiency , Felty's syndrome as well as LGL. Also, worrisome for another autoimmune such s lupus. Medication effect including colchicine and plaquenil. We will obtain here flow cytometry, CBC, LDH, JAYDEN, splenic US, B12/folate . Thrombocyt openic disorder 564742683 D69.6 As above. [id number] FROILAN BAGLEY MD HEM/ONC [facility] [id number] [place], [place] [id number] 1 09/23/2019 14:46:58 09/23/2019 15:53:02 Leukopenia 94139627 D72.819 Differenti al includes for this and [...] dilatation most likely secondary to cholecyste ctomy. [id number] JASON WEISS MD CARDIOLOG Y [address] [place] [id number] 10/24/2019 12:38:41 10/24/2019 13:57:59 [id number] FROILAN BAGLEY MD HEM/ONC [facility] [id number] [place] [id number] 04/20/2020 12:49:16 04/20/2020 13:27:21 Leukopenia 22141150 D72.819 Labs today are normal. This has [...] dilatation most likely secondary to cholecyste ctomy. [id number] JASON WEISS MD CARDIOLOG Y [address] [place] [id number] 05/04/2020 13:42:38 05/04/2020 14:45:16 [id number] JASON WEISS MD CARDIOLOG Y [address] [place], [place] [id number] 11/23/2020 14:04:41 11/23/2020 15:54:54 [id number] JASON WEISS MD CARDIOLOG Y [address] [place] [id number] 04/22/2021 10:16:00 04/22/2021 10:42:04 [id number] YELENA GARCIA PA-C CARDIOLOG Y [address] [place] [address] 10/20/2021 13:30:08 10/20/2021 15:19:47 [id number] YELENA GARCIA PA-C [facility] [address] ,[address] [place] [address] 04/25/2022 13:10:58 04/25/2022 14:17:13 [id number] YELENA GARCIA PA-C [facility] [address] [place] [address] 10/25/2022 13:07:16 10/25/2022 14:19:06 [id number] MIGUEL SALAZAR MD [facility] SB [address] [place] [address] 1 04/19/2023 08:57:28 04/19/2023 12:59:26 [id number] MIGUEL SALAZAR MD [facility] [address] [place] [address] 1 10/23/2023 13:19:59 10/23/2023 15:24:43 [id number] MIGUEL SALAZAR MD [facility] [address] [place] [address] 1 02/28/2024 14:13:45 02/28/2024 15:43:14 [id number] MIGUEL SALAZAR MD [facility] [address] [place] [address] 1 04/24/2024 13:47:52 05/02/2024 11:17:54 [id number] MIGUEL SALAZAR MD [facility] SB [address] [place] [address] 1 10/29/2024 12:55:01 10/29/2024 14:32:18 Health Concerns Section Related Observation LastModified by Organization Detai ls LastModified Time None Recorded Concern Status LastModified by Organization Details LastModified Time None Recorded Advance Directives Directive None Recorded Payers Insurance Date Sequence Insurance Name Policy Number Policy Gaines Covered Member ID Gaines Member ID Guarantor Name 04/25/2025 2 [place] [id number] Gina Hector [id number] Gina Hector 04/25/2025 1 [place]) Gina Hector [id number] Gina Hector 10/07/2020 2 [id number] Gina Hector [id number] Gina Hector Notes Date Note Type Note Provider Name and Address Organization Details Recorded Time 9 text/html HPIReported bypatient.Advanced Directives / [employer] AuthorizationsAdvanced Directives? YES Dischargedischarge disposition stable Distress ScreeningHas the distress screening been completed in the last 45 days? YES; Distress level 5 Practical Problemsno practical problems Family Problemsno family problems Emotional Problemsdepression; anxiety Spiritual/Religiousspiritua l/scientology problems? NO Physical Problemsno physical problems Nutrition [...] ROS per intake note. FROILAN BAGLEY MD [address] [place] [address], [phone], [facility] 09/09/2019 09:47:03 9 text/html HPIReported bypatient.Distress ScreeningHas the distress screening been completed in the last 45 days? YES; Distress level 3 Practical Problemshousing stress;financial/insurance stress;transportation stress Family Problemsfamily health issue Emotional Problemsdepression;nervousn ess;worry Spiritual/Religiousspiritua l/scientology problems? NO Physical Problemsdiarrhea;eating/ing estion problem;fatigue Nutrition [...] polyps, diverticulosis per pt. FROILAN BAGLEY MD [address] [place] [address], [phone], [facility] 09/23/2019 15:46:20 0 text/html HPIReported bypatient.Advanced Directives / [employer] AuthorizationsAdvanced Directives? NO Dischargedischarge disposition stable Distress ScreeningHas the distress screening been completed in the last 45 days? YES; Distress level 3 Practical Problemsno practical problems;transportation stress Family Problemsno family problems Emotional Problemsdepression;fears;ne rvousness;sadness;worry Spiritual/Religiousspiritua l/scientology problems? NO Physical Problemseating/ingestion problem;fatigue;feeling swollen Nutrition [...] care of Dr. Perez. FROILAN BAGLEY MD [address] [place] [address], [phone], [facility] 04/20/2020 13:19:58 OBGyn Episode No OBEpisode recorded.
--- OUTSIDE RECORDS SUMMARY | 2025-05-17 09:29 | XMS_ITS | Data Portability ---
Author Organization [facility] [place], [facility] Address [address] [place] [address] Care Team Providers Care Data Manager Name Role Phone MIGDALIA KHANNA Primary Care Provider [phone] MIGUEL SALAZAR Tax Agent Assessment Encounter Date Assessment Date Assessment LastModified [...] graft angiography. This was carried out by sc on March 10 and revealed ostial RCA [...] has been evaluated in the ER at [facility] on 01/15/2024 for chest pain. She was [...] has been evaluated in the ER at [facility] on 01/15/2024 for chest pain. She was [...] has been evaluated in the ER at [facility] on 01/15/2024 for chest pain. She was [...] By Organization Details Last Modified Time 02/28/2024 [id number] body mass index: care instructions [email or web address] Not available 02/28/2024 18:49:40 high blood pressure: care instructions Not available 02/28/2024 18:49:40 10/29/2024 [id number] body mass index: care instructions Not available [...] color flow No observ ation record ed. [address], [place], [address], 01/29/2024 09:10:07 01/30/20 24 01/19/2024 US, doppl er echoc ardio gram, w/ color flow No observ ation record ed. [address], [place], [address], 01/31/2024 13:06:02 01/30/20 24 01/19/2024 US, doppl er echoc ardio gram, w/ color flow No observ ation record ed. [address] (Med Record) [address], [place], [address], 01/31/2024 13:05:34 01/30/20 24 01/15/2024 elect rocar diogr am No observ ation record ed. [address], [place], [address], 01/31/2024 13:05:20 02/12/20 24 01/19/2024 US, doppl er echoc ardio gram, w/ color flow No observ ation record ed. [address], [place], [address], 02/12/2024 15:34:23 02/12/20 24 02/06/2024 event monit or No observ ation record ed. [address], [place], [address], 02/13/2024 11:15:22 05/02/20 24 04/24/2024 elect geetha johnson am No observ ation record ed. BARCODE Not Available 2023 08:45:48 Result Notes None recorded. Problems Name Problem SNOMED Code Status Onset Date Resolution Date Notes Provider Name and Address Organization Details Recorded Time Coronary arteriosc lerosis in [place] artery 298537195777 7 Active 2014 From Automated Load;Prov ider: Jason Amado;Stat us: Active [facility] 0 15:08:54 Hyperlipi demia 83839292 Active 2014 From Automated Load;Prov ider: Jason Amado;Stat us: Active [facility] 0 15:08:54 Problem Notes None recorded. Procedures Surgical History Date Name Laterality Status Provider Name and Address Organization Details Recorded Time 04/24/20 24 EKG completed MIGUEL SALAZAR MD [address] [place] [address], [phone], [facility] 04/26/2024 11:09:13 10/23/20 23 EKG completed MIGUEL SALAZAR MD [address] [place] [address], [phone], [facility] 10/23/2023 14:45:41 10/25/20 22 EKG completed YELENA GARCIA PA-C [address] [place] [address], [phone], [facility] 10/25/2022 14:05:38 04/25/20 22 EKG completed YELENA GARCIA PA-C [address] [place], [address], [facility] 04/25/2022 14:01:56 10/20/20 21 EKG completed YELENA GARCIA PA-C [address] [place], [address], [facility] 10/20/2021 14:58:02 10/12/20 10 Cardiac Catheterization completed [facility] 03/29/2017 15:44:16 09/13/20 02 Cardiac Surgery completed [facility] 03/29/2017 15:43:45 Other completed [facility] 03/29/2017 15:43:14 Cholecystectomy completed [facility] 03/29/2017 15:43:26 Other completed [facility] 03/29/2017 15:44:26 Other completed [facility] 03/29/2017 15:44:34 Other completed [facility] 03/29/2017 15:44:42 Other completed [facility] 03/29/2017 15:44:50 Imaging Results None recorded. Procedure Notes None recorded. Medical Equipment None Reported. Allergies Allergen ID Allergen Name Allergen Category Reaction Reaction Severity Criticality Documentation Date Start Date Code Code System Note Provider Name and Address Organization Details Recorded Time 085926 Motrin medicatio n itching Not available Not available 10/06/2016200948 8 RxNorm React ion: ITCHI NG; Comme nt: Creat ed By: Marge rivas Date: 08/31 3:29: 43 PM; Not Available [facility] 6 14:10:00 132677 Product containin g penicilli n (product) medicatio n rash Not available Not available 10/07/20162009 38107 8001 SNOMED React ion: RASH; Comme nt: Creat ed By: Marge Helms reate d Date: 08/31 3:29: 20 PM; Not Available [facility] 6 03:51:38 Medications Name Sig [...] blood by Pulse oximetry Heart rate Systolic And Diastolic Provider Name and Address Organization Details Last Updated DateTime 4 162.56 cm 34 kg/m2 85264.0 1 g 97 % 97 % 64 /min 120/68 mm[Hg] Magda Zhong [facility] 4 15:03:41 Date Recorded Body height Body mass index (BMI) Body weight Heart rate Respiratory rate Oxygen saturation Oxygen saturation in Arterial blood by Pulse oximetry Systolic And Diastolic Provider Name and Address Organization Details Last Updated DateTime 3 162.56 cm 34.1 kg/m2 25314.3 9 g 59 /min 16 /min 96 % 96 % 120/78 mm[Hg] Maddi Llanes [facility] 3 09:29:27 Date Recorded Body height Body mass index (BMI) Body weight Respiratory rate Heart rate Oxygen saturation Oxygen saturation in Arterial blood by Pulse oximetry Systolic And Diastolic Provider Name and Address Organization Details Last Updated DateTime 4 162.56 cm 34.4 kg/m2 72099.5 7 g 16 /min 58 /min 98 % 98 % 124/66 mm[Hg] oL Ramirez [facility] 4 14:52:40 Date Recorded Body height Body mass index (BMI) Body weight Heart rate Oxygen saturation Oxygen saturation in Arterial blood by Pulse oximetry Systolic And Diastolic Provider Name and Address Organization Details Last Updated DateTime 3 162.56 cm 34.8 kg/m2 06747.4 6 g 58 /min 97 % 97 % 122/65 mm[Hg] Emily Gama [facility] 3 13:51:20 Date Recorded Body height Oxygen saturation Oxygen saturation in Arterial blood by Pulse oximetry Heart rate Systolic And Diastolic Provider Name and Address Organization Details Last Updated DateTime 4 162.56 cm 98 % 98 % 65 /min 140/70 mm[Hg] Magda Zhong [facility] 4 14:03:05 Social History Question Answer Notes LastModified by Organizat ion Details LastModified Time Tobacco Smoking Status Never Smoker Leidy Ryder [facility] 03/29/2017 15:41:57 How Much Tobacco Do You Chew? None Information not available 11/23/2020 Marital Status Informatio n not available 03/29/2017 What Was The Date Of Your Most Recent Tobacco Screening? 10/29/2024 Information not available 10/29/2024 How Many Children Do You Have? 1 Information not available 03/29/2017 What Is Your Relationship Status? [email or web address] Information not available 10/23/2023 How Much Tobacco Do You Smoke? No Information not available 11/23/2020 Has Tobacco Cessation Counseling Been Provided? No Information not available 02/28/2024 Have You Recently Traveled Abroad? No [email or web address] Information not available 10/20/2021 Sex: Female Functional Status Question Answer Note LastModified by Organizat ion Details LastModified Time Do you or have you ever used any other forms of tobacco or nicotine? No Information not available 02/28/2024 Do you or have you ever used smokeless tobacco? Never used smokeless tobacco [email or web address] Information not available 10/24/2019 Are you currently employed? 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 Andrea Information not available 03/29/2017 Do you or have you ever used e-cigarettes or vape? Never used electronic cigarettes [email or web address] Information not available 10/24/2019 Mental Status None [...] N Heart Arrhythmia N Thyroid Problems N COPD N Lung Disease N Pacemaker N Peripheral Arterial Disease N Nervous Illness Y Edema Y Chest Pain Y Heart Attack (TN) Y Ulcers N Diabetes N Rheumatic Fever N Hiatal hernia N Heart Murmur N Tuberculosis N AIDS/HIV N Acid Reflux (GERD) Y Hyperlipidemia Y Cancer N Stroke N Asthma N Cardiac Disease Y History of Blood Thinners Y Peripheral Vascular Disease N Blood Thinners Y Shortness of Breath N Jaundice N Sleep Apnea N GERD/Reflux Y High Cholesterol Y Warfarin Management N Heart Disease Y Arrhythmia N Restless leg syndrome N Hypertension Y Endocrine Disorder N Gynecological HistoryNo gynecological history recorded. Obstetrics History GPAL:G 0 P 0 0 0 0 Immunizations Vaccine Type Date Status Note Provider Nam e and Address Organization Details Recorded Time COVID-19, mRNA, LNP-S, PF, 100 mcg/0.5mL dose or 50 mcg/0.25mL dose 12/09/2020 completed Emily Malloy [facility] 10/20/2021 14:10:21 COVID-19, mRNA, LNP-S, PF, 100 mcg/0.5mL dose or 50 mcg/0.25mL dose 01/06/2021 completed Emily Malloy [facility] 10/20/2021 14:10:37 COVID-19, mRNA, LNP-S, PF, 100 mcg/0.5mL dose or 50 mcg/0.25mL dose 08/11/2021 jeremy Malloy [facility] 10/20/2021 14:10:54 Past Encounters Encounter ID Performer Location Encounter Start Date Encounter Closed Date Diagnosis/Indication Diagnosis SNOMED-CT Code Diagnosis ICD10 Code Diagnosis Note [id number] JASON AMADO MD CARDIOLOG Y [address] [place], [place] [address] 04/03/2017 13:10:27 04/03/2017 13:49:50 Coronary arteriosclerosis in [place] artery 7476377675 107 I25.10 Medication changes, as well as [...] call for any change in status. Hyperlipidemia 00086931 E78.5 reviewed outside lipid studies. All parameters are in appropriat e range. She is to continue her current regimen. [id number] JASON AMADO MD CARDIOLOG Y [address] [place], [place] [address] 09/25/2017 12:53:34 09/25/2017 14:36:54 Coronary arteriosclerosis in [place] artery 0166220520 107 I25.10 Medication changes, as well as [...] call for any change in status. Hyperlipidemia 33338993 E78.5 reviewed outside lipid studies. All parameters are in appropriat e range. She is to continue her current regimen. [id number] JASON AMADO MD CARDIOLOG Y [address] [place] [address] 04/02/2018 09:28:26 04/02/2018 11:01:03 Coronary arteriosclerosis in [place] artery 4401920096 107 I25.10 Medication changes, as well as [...] call for any change in status. Hyperlipidemia 39388701 E78.5 reviewed outside lipid studies. All parameters are in appropriat e range. She is to continue her current regimen. [id number] JASON AMADO MD CARDIOLOG Y [address] [place] [address] 10/22/2018 13:48:50 10/22/2018 15:10:00 Coronary arteriosclerosis in [place] artery 3945396573 107 I25.10 Medication changes, as well as [...] call for any change in status. Hyperlipidemia 66672041 E78.5 Most recent testing reviewed. All laboratory measuremen ts in appropriat e parameters on current medical therapy. This was reviewed and discussed with the patient and all questions answered. [id number] JASON AMADO MD CARDIOLOG Y [address] [place] [address] 02/07/2019 11:09:23 02/07/2019 13:35:19 Coronary arteriosclerosis in [place] artery 5388167576 107 I25.10 Medication changes, as well as [...] call for any change in status. Hyperlipidemia 26786934 E78.5 Most recent testing reviewed. All laboratory measuremen ts in appropriat e parameters on current medical therapy. This was reviewed and discussed with the patient and all questions answered. [id number] JASON AMADO MD CARDIOLOG Y [address] [place] [address] 05/08/2019 13:19:05 05/08/2019 13:58:46 Coronary arteriosclerosis in [place] artery 2808734305 107 I25.10 Medication changes, as well as [...] call for any change in status. Hyperlipidemia 35666780 E78.5 Most recent testing reviewed. All laboratory measuremen ts in appropriat e parameters on current medical therapy. This was reviewed and discussed with the patient and all questions answered. Edema of foot 060526003 R60.0 I discussed the importance of salt restrictio n. Per FDA recommenda tions, I advise limit of 2000 -2400 mg daily of sodium. Increase sodium intake is often associated with worsening of hypertensi on and or heart failure.DA SH diet given.. Advised to increase furosemide to 40 mg a day until edema resolves and then resume previous dosage. [id number] FROILAN BAGLEY MD HEM/[facility]C [facility] [address] [place] [address] 09/09/2019 08:55:56 09/09/2019 09:56:44 [id number] FROILAN BAGLEY MD HEM/ONC [facility] [address] [place] [address] 09/23/2019 14:46:58 09/23/2019 15:53:02 [id number] JASON AMADO MD CARDIOLOG Y [address] [place] [address] 10/24/2019 12:38:41 10/24/2019 13:57:59 Coronary arteriosclerosis in [place] artery 2919673790 107 I25.10 Medication changes, as well as [...] call for any change in status. Hyperlipidemia 55630926 E78.5 Most recent testing reviewed. All laboratory measuremen ts in appropriat e parameters on current medical therapy. This was reviewed and discussed with the patient and all questions answered. Edema of foot 989400502 R60.0 I discussed the importance of salt restrictio n. Per FDA recommenda tions, I advise limit of 2000 -2400 mg daily of sodium. Increase sodium intake is often associated with worsening of hypertensi on and or heart failure.DA SH diet given.. Advised to increase furosemide to 40 mg a day until edema resolves and then resume previous dosage. [id number] FROILAN BAGLEY MD HEM/ONC [facility] [address] [place] [address] 04/20/2020 12:49:16 04/20/2020 13:27:21 [id number] JASON AMADO MD CARDIOLOG Y [address] [place] [address] 05/04/2020 13:42:38 05/04/2020 14:45:16 Coronary arteriosclerosis in [place] artery 4207410821 107 I25.10 Medication changes, as well as [...] call for any change in status. Hyperlipidemia 01998182 E78.5 Most recent testing reviewed. All laboratory measuremen ts in appropriat e parameters on current medical therapy. This was reviewed and discussed with the patient and all questions answered. Edema of foot 638619644 R60.0 I discussed the importance of salt restrictio n. Per FDA recommenda tions, I advise limit of 2000 -2400 mg daily of sodium. Increase sodium intake is often associated with worsening of hypertensi on and or heart failure.DA SH diet given.. Advised to increase furosemide to 40 mg a day until edema resolves and then resume previous dosage. [id number] JASON AMADO MD CARDIOLOG Y [address] [place] [address] 11/23/2020 14:04:41 11/23/2020 15:54:54 Coronary arteriosclerosis in [place] artery 6312168841 107 I25.10 Medication changes, as well as [...] call for any change in status. Hyperlipidemia 16742255 E78.5 Most recent testing reviewed. All laboratory measuremen ts in appropriat e parameters on current medical therapy. This was reviewed and discussed with the patient and all questions answered. Edema of foot 005623728 R60.0 I discussed the importance of salt restrictio n. Per FDA recommenda tions, I advise limit of 2000 -2400 mg daily of sodium. Increase sodium intake is often associated with worsening of hypertensi on and or heart failure.DA SH diet given.. Advised to increase furosemide to 40 mg a day until edema resolves and then resume previous dosage. COVID-19 190815720 U07.1 I had extensive discussion with patient regarding the importance of vaccinatio n and reviewed findings of COVID 19 infection and answered all questions. [id number] JASON AMADO MD CARDIOLOG Y [address] [place] [address] 04/22/2021 10:16:00 04/22/2021 10:42:04 Coronary arteriosclerosis in [place] artery 5137538256 107 I25.10 Medication changes, as well as [...] No testing needed at this time Hyperlipidemia 31410313 E78.5 Most recent testing reviewed. All laboratory measuremen ts in appropriat e parameters on current medical therapy. This was reviewed and discussed with the patient and all questions answered. Edema of foot 028412681 R60.0 I discussed the importance of salt restrictio n. Per FDA recommenda tions, I advise limit of 2000 -2400 mg daily of sodium. Increase sodium intake is often associated with worsening of hypertensi on and or heart failure.DA SH diet given.. Advised to increase furosemide to 40 mg a day until edema resolves and then resume previous dosage. COVID-19 468807754 U07.1 I had extensive discussion with patient regarding the importance of vaccinatio n and reviewed findings of COVID 19 infection and answered all questions. [id number] YELENA GARCIA PA-C CARDIOLOG Y [address] [place] [address] 10/20/2021 13:30:08 10/20/2021 15:19:47 Coronary arteriosclerosis 55946316 I25.10 Medication changes, as well as new [...] call for any change in status Dyslipidemia 711346337 E 78.5 Lipid goals discussed with patient. (Total cholestero l less than 170, LDL less than 70. ) Continue heart healthy diet.bertin nue current dose of Lipitor. [id number] YELENA GARCIA PA-C CARDIOLOG Y [address] ,[address] [place], [place] [address] 04/25/2022 13:10:58 04/25/2022 14:17:13 Obese 896508722 E66.9 Coronary arteriosclerosis 90980079 I25.10 Medication changes, as well as new [...] call for any change in status Dyslipidemia 344027518 E 78.5 Lipid goals discussed with patient. (Total cholestero l less than 170, LDL less than 70. ) Continue heart healthy diet.bertin nue current dose of Lipitor. [id number] YELENA GARCIA PA-C CARDIOLOG Y [address] [place], [place] [address] 10/25/2022 13:07:16 10/25/2022 14:19:06 Obese 727683848 E66.9 Coronary arteriosclerosis 82164599 I25.10 The patient is doing well on current management . No new active problems identified . Chronic problems are all stable. Patient is to continue current regimen without change. All questions answered and regimen reviewed. Patient is to call for any change in status Dyslipidemia 060389642 E 78.5 Continue current dose of Lipitor. Obtain fasting lipid profile with PCP [id number] MIGUEL SALAZAR MD CARDIOLOG Y [address] [place] [address] 04/19/2023 08:57:28 04/19/2023 12:59:26 Obesity 508323133 E66.9 patient's BMI today was = 34.1; recommend weight loss for beneficial effects on health. Coronary atherosclerosis 023960926 I25.10 patient with history of CAD, history of CABG-see HPI for detail; no new symptoms reported; exam is relatively unchanged from previous visit; continue with current medication s -enteric-c oated aspirin 81 mg p.o. daily, atenolol 50 mg 1 p.o. nightly, colestipol 1 g tablet p.o. twice daily Anxiety 96446845 F41.9 She reports much increased anxiety/st ress in her life recently due to the deaths of several friends. Hyperlipidemia 28341661 E78.5 continue with current medication s -colestipo l 1 g tablet p.o. twice daily, low cholestero l diet, and recommend fasting lipids at least yearly. Goal lipid profile: TC<=200, TG<=150, HDL>=40, LDL<=70. [id number] MIGUEL SALAZAR MD CARDIOLOG Y SB [address] [place] [address] 10/23/2023 13:19:59 10/23/2023 15:24:43 Coronary atherosclerosis 564342440 I25.10 patient with history of CAD, history of CABG-see HPI for detail; no new symptoms reported; exam is relatively unchanged from previous visit; continue with current medication s -enteric-c oated aspirin 81 mg p.o. daily, atenolol 50 mg 1 p.o. nightly, colestipol 1 g tablet p.o. 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 Cardiac exam today was benign. No new recommenda tions at this time Essential hypertension 63059465 I10 BP today was = 122/65 mmHg; continue with current med. -Atenolol 50 mg p.o. nightly patient is recommende d to check BPs at home periodical ly & bring BP log to next visit. A low sodium (< 2000 mg/day) diet is also recommende d. [id number] MIGUEL SALAZAR MD CARDIOLOG Y [address] [place] [address] 02/28/2024 14:13:45 02/28/2024 15:43:14 Essential hypertension 73155003 I10 BP today was = 120/68 mmHg; continue with current med. - Atenolol 50 mg p.o. nightly patient is recommende d to check BPs at home periodical ly & bring BP log to next visit. A low sodium (< 2000 mg/day) diet is also recommende d. Obesity 078302439 E66.9 patient's BMI today was = 34.0; recommend weight loss for beneficial effects on health. Coronary atherosclerosis 821391769 I25.10 patient with history of CAD, history of CABG-see HPI for detail; no new symptoms reported; exam is relatively unchanged from previous visit; continue with current medication s -enteric-c oated aspirin 81 mg p.o. daily, atenolol 50 mg 1 p.o. nightly, colestipol 1 g tablet p.o. twice daily. 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 Cardiac exam today was benign. No new recommenda tions at this time Palpitations 11177577 R0 0.2 The etiology of the patient's [...] the goal of reducing palpitatio n burden. 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 Cardiac exam today was benign. No new recommenda tions at this time Essential hypertension 56949965 I10 BP today was = 124/66 mmHg; continue with current med. - Atenolol 50 mg p.o. nightly patient is recommende d to check BPs at home periodical ly & bring BP log to next visit. A low sodium (< 2000 mg/day) diet is also recommende d. Palpitations 79957897 R0 0.2 The etiology of the patient's [...] goal of reducing palpitatio n burden. Obesity 731100551 E66.9 patient's BMI today was = 34.4; recommend weight loss for beneficial effects on health. 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 Cardiac exam today was benign. No new recommenda tions at this time Essential hypertension 27253180 I10 BP today was = 140/70 mmHg, HR=65 bpm; continue with current med. - Atenolol 50 mg p.o. nightly patient is recommende d to check BPs at home periodical ly & bring BP log to next visit. A low sodium (< 2000 mg/day) diet is also recommende d. Palpitations 85389915 R0 0.2 The etiology of the patient's [...] goal of reducing palpitatio n burden. Obesity 909257429 E66.9 patient's BMI today was = 34.4; recommend weight loss for beneficial effects on health. Gastroesop hageal reflux disease 402328580 K21.9 Patient reports that her chest discomfort [...] OF [place] (MEDICARE SUPPLEMENT[place] [id number] Gina Haas [id number] Gina Haas 04/25/2025 1 [place] Gina Samina [id number] Gina Haas 10/07/2020 2 [place] [id number] Ginarudi Hector [id number] Gina Hector Notes Date Note Type [...] graft angiography. This was carried out by sc on March 10 and revealed ostial RCA [...] is reported as stable. MIGUEL SALAZAR MD [address] [place] [address], [phone], [facility] 04/19/2023 12:47:20 10/23/2023 text/html Ms. Hector [...] graft angiography. This was carried out by sc on March 10 and revealed ostial RCA [...] a scheduled follow-up visit. MIGUEL SALAZAR MD [address] [place] [address], [phone], [facility] 10/23/2023 14:47:35 02/28/2024 text/html Ms. Hector [...] graft angiography. This was carried out by sc on March 10, 2023, and revealed ostial [...] has been evaluated in the ER at [facility] on 01/15/2024 for chest pain. She was ruled out for ACS, and sent home. Since then, she reports occasional SOA/THOMPSON and chest discomfort as well as palpitations. She went to the ER twice more last month, and wonders if her recent symptoms were related to anxiety. Patient returns to the clinic today for a scheduled follow-up visit. MIGUEL SALAZAR MD [address] [place] [address], [phone], [facility] 02/28/2024 18:50:28 04/24/2024 text/html Ms. Hector [...] has been evaluated in the ER at [facility] on 01/15/2024 for chest pain. She was [...] a scheduled follow-up visit. MIGUEL SALAZAR MD [address] [place] [address], [phone], [facility] 04/26/2024 11:11:23 10/29/2024 text/html Ms. Hector [...] graft angiography. This was carried out by sc on March 10, 2023, and revealed ostial [...] has been evaluated in the ER at [facility] on 01/15/2024 for chest pain. She was [...] a scheduled follow-up visit. MIGUEL SALAZAR MD [facility] [place], [phone], [facility] 10/29/2024 19:38:08 OBGyn Episode No OBEpisode recorded.
--- OUTSIDE RECORDS SUMMARY | 2025-05-17 09:30 | XMS_ITS | Encounter Summary ---
Author Organization [employer] ([place], [place], [place], [place]) Address [address] [place] [address] Care Team Providers Care Pipe Stem Repairer Name Role Phone José Miguel Verde MD Primary Care Provider + [phone] Encounter Details Date Type Department Care Team (Late st Contact Info) Description 01/08/2019 Transcribed Document [facility] [place] Family Medicine [address] [place] [address] ProviderNitin MD [address] [place], [place] [id number] Social History Tobacco Use Types Packs/Day Years [...] - Nitin ProviderMD - 01/08/2019 11:23 PM HEAD NURSE ED Discharge Entered On: 01/08/2019 23:23 EST [...] 01/08/2019 23:23 EST Electronically signed by Drew, [facility] Conversion Cullet Trucker Cerner at 02/26/2023 11:09 PM CDT documented in this encounter Plan of Treatment Not on file documented as of this encounter Visit Diagnoses Not on filedocumented in this encounter Care Teams Pipe Stem Repairer Relationship Specialty Start Date End Date José Miguel Verde MD [address] [place] [address] PCP - General Adolescent Medicine 03/07/23 documented as of this encounter
--- OUTSIDE RECORDS SUMMARY | 2025-05-17 09:30 | XMS_ITS | Encounter Summary ---
Author Organization [employer] ([place], [place], [place], [place]) Address [address] [place] [address] Care Team Providers Care Associate Professor Of English Name Role Phone José Miguel Verde MD Primary Care Provider + [phone] Encounter Details Date Type Department Care Team (Late st Contact Info) Description 01/08/2019 Transcribed Document [facility] Family Medicine [address] [place] [address] ProviderNitin MD [address] [place] [address] Social History Tobacco Use Types [...] Conversion Note - Nitin ProviderMD - 01/08/2019 11:21 PM CONE FORMER Electronically signed by Maria Fareri [facility] Conversion Cleaner And Polisher Jessica at 02/26/2023 11:12 PM CDT documented in this encounter Plan of Treatment Not on file documented as of this encounter Visit Diagnoses Not on filedocumented in this encounter Care Teams Associate Professor Of English Relationship Specialty Start Date End Date José Miguel Verde MD [address] [place] [address] PCP - General Adolescent Medicine 03/07/23 documented as of this encounter
--- OUTSIDE RECORDS SUMMARY | 2025-05-17 09:30 | XMS_ITS | Encounter Summary ---
Author Organization [employer] ([place], [place], [place], [place]) Address [address] [place] [address] Care Team Providers Care Mover Helper Name Role Phone José Miguel Verde MD Primary Care Provider + [phone] Encounter Details Date Type Department Care Team (Late st Contact Info) Description 01/08/2019 Transcribed Document [facility] Family Medicine [address] [place] [address] ProviderNitin MD [address], [place] [id number] Social History Tobacco Use Types Packs/Day Years [...] - Nitin ProviderMD - 01/08/2019 6:41 PM BINDERY ASSISTANT ED Assessment Entered On: 01/08/2019 19:12 EST Performed On: 01/08/2019 19:11 EST by Roc Saenz RN ED Quick Look Assessment Level of Consciousness : Alert, Awake Affect/Behavior : Appropriate, Calm Orientation : Oriented x 4 Roc Saenz RN - 01/08/2019 19:11 EST ED General-Functional Assess Information Obtained From : Patient Communication Barrier : None Primary Language : Telugu Any Spiritual/Cultural Needs or Requests : No [...] on filedocumented in this encounter Care Teams Mover Helper Relationship Specialty Start Date End Date José Miguel Verde MD [address] [place] [address] PCP - General Adolescent Medicine 03/07/23 documented as of this encounter
--- OUTSIDE RECORDS SUMMARY | 2025-05-17 09:30 | XMS_ITS | Encounter Summary ---
Author Organization [employer] ([place], [place], [place], [place]) Address [address] [place] [address] Care Team Providers Care Recreation Superintendent Name Role Phone José Miguel Verde MD Primary Care Provider + [phone] Encounter Details Date Type Department Care Team (Late st Contact Info) Description 01/09/2019 Transcribed Document [facility] [place] Family Medicine [address] [place] [address] ProviderNitin MD [address] [place], [place] [phone] Social History Tobacco Use Types Packs/Day Years [...] - Historical ProviderMD - 01/09/2019 8:32 AM SAP BASIS ADMINISTRATOR CR Chest 1 Vw Portable Ordered: 01/08/2019 Modified Reason for Exam: chest pain 01/09/2019 07:59 01/09/2019 08:32 (ЕЛЕНА LINDSEY) No further action required documented in this encounter Plan of Treatment Not on file documented as of this encounter Visit Diagnoses Not on filedocumented in this encounter Care Teams Recreation Superintendent Relationship Specialty Start Date End Date José Miguel Verde MD [address] [place] [address] PCP - General Adolescent Medicine 03/07/23 documented as of this encounter
--- OUTSIDE RECORDS SUMMARY | 2025-05-17 09:30 | XMS_ITS | Encounter Summary ---
Author Organization [employer] ([place], [place], [place], [place]) Address [address] [place] [address] Care Team Providers Care Meat Team Lead Name Role Phone José Miguel Verde MD Primary Care Provider + [phone] Encounter Details Date Type Department Care Team (Late st Contact Info) Description 07/15/2020 Transcribed Document [facility] Family Medicine [address] [place] [address] ProviderNitin MD [address] [place] [address] Social History Tobacco Use Types [...] Conversion Note - Nitin ProviderMD - 07/15/2020 4:07 PM CDT Patient: GINA HECTOR Age: 74 years Sex: Female : 1945 Associated Diagnoses: Chest wall pain Author: CARMENCITA KHAN PA-C Basic Information Additional information: Chief Complaint from Nursing Triage Note : Chief Complaint 07/15/2020 11:56 EDT Chief Complaint pt c/o CP for 2 days, hurting in left arm, sharp 6/10, took NTG yesterday went away, started today took NTH with xanax and now a /10, no NVD, . History of Present Illness [...] Source Stated Height Entry Format Beryl Height/Length, MEXICAN (ft) 5 ft Height/Length MEXICAN 2 Inch CLINICALHEIGHT 157.48 cm [place] Body Weight 49.73 kg Weight Source, ED Critical estimated dosing weight Weight Entry Format [place] Weight Mexican lb 222 lb CLINICALWEIGHT 100.91 kg Body [...] Triage: ED C-SSRS: ED Clinical Reconciliation: ED hi teacher: EKG: Extra Blue Tube: Extra Gold Tube: Troponin I Ultra: Troponin I Ultra: . ekg monitor: Initial EKG shows normal sinus rhythm with incomplete right bundle branch block rate of 60 bpm reviewed by TORIBIO Ribeiro. Repeat EKG shows sinus bradycardia with incomplete [...] % LOW Lymph # 0.97 x10(3)/uL LOW [place] % 9.3 % HI [place] # 0.55 K/uL Eos % 1.0 % Eos # 0.06 x10(3)/uL Baso % 0.5 % Baso # 0.03 x10(3)/uL Slide Review No IG# 0.02 x10(3)/uL IG% 0.30 % . Radiology results: Radiology Results (Last 48 hours) [id number] -- 07/15/2020 11:47 CR Chest 1 Vw [...] instructions. Electronically signed by Sarah Russell Conversion Senior Sustainability Consultant Cerner at 02/26/2023 10:57 PM CDT documented in this encounter Plan of Treatment Not on file documented as of this encounter Visit Diagnoses Not on filedocumented in this encounter Care Teams Meat Team Lead Relationship Specialty Start Date End Date José Miguel Verde MD [address] [place] [address] PCP - General Adolescent Medicine 03/07/23 documented as of this encounter
--- OUTSIDE RECORDS SUMMARY | 2025-05-17 09:30 | XMS_ITS | Encounter Summary ---
Author Organization [employer] ([place], [place], [place], [place]) Address [address] [place] [address] Care Team Providers Care Forklift Wheel Loader Name Role Phone José Miguel Verde MD Primary Care Provider + [phone] Encounter Details Date Type Department Care Team (Late st Contact Info) Description 07/15/2020 Transcribed Document [facility] [place] Family Medicine [address] [place] [address] ProviderNitin MD [address], [place] [id number] Social History Tobacco Use Types Packs/Day Years [...] On: 07/15/2020 11:56 EDT by CARMEN PICKETT, SOLID GLASS ROD DOWEL MACHINE OPERATOR Triage Across the Room Chief Complaint : pt c/o CP for 2 days, hurting in left arm, sharp 10, took NTG yesterday went away, started today took NTH with xanax and now a 4/10, no NVD, Triage Date/Time : 07/15/2020 11:56 EDT CARMEN PICKETT RN - 07/15/2020 11:56 EDT DCP GENERIC CODE Tracking Acuity : 2 - Emergent Tracking Group : [facility] ED CARMEN PICKETT RN - 07/15/2020 11:56 EDT Mode of Arrival : Ambulatory Transported to ED by : Private vehicle To Room Via : Wheelchair Accompanied By : Unaccompanied ED Vital Signs : Document Height & Weight : Document ED Allergies : Document ED Reason for Visit : Document Tetanus Immunization : Unknown Research And Development Director Needed : No CARMEN PICKETT RN - [...] O/E - a rash ; Created By: Contributor_systemLUBNA_CYNTHIA; Reaction Status: Active ; Category: Drug ; Substance: penicillin ; Type: Allergy ; Updated By: Contributor_systemLUBNA_CYNTHIA; Reviewed Date: 07/15/2020 11:58 EDT Diagnosis Control ED (As Of: 07/15/2020 11:58:46 EDT) Diagnoses(Active) Chest pain Date: 07/15/2020 ; Diagnosis Type: Reason For Visit ; Confirmation: Complaint of ; Clinical Dx: Chest pain ; Classification: Medical ; Clinical Service: Emergency medicine ; Code: PNED ; Probability: 0 ; Diagnosis Code: [id number] ED Height and Weight Height Source : Stated Height Entry Format : Lucien Height, Feet : 5 ft(Converted to: 152 cm, 60 Inch) Height, Inches : 2 Inch(Converted to: 0 ft 2 Inch, 5.08 cm) Clinical Height : 157.48 cm Weight Source, ED : Critical estimated dosing weight Weight Entry Format : Lucien Weight, Pounds : 222 lb Clinical Dosing Weight : 100.91 kg Body Surface Area (BSA) : 2 m2 Body Mass Index : 40.7 kg/m2 (>HHI) [place] Body Weight (IBW) : 49.73 kg CARMEN [...] on filedocumented in this encounter Care Teams Forklift Wheel Loader Relationship Specialty Start Date End Date José Miguel Verde MD [address] [place] [address] PCP - General Adolescent Medicine 03/07/23 documented as of this encounter
--- OUTSIDE RECORDS SUMMARY | 2025-05-17 09:30 | XMS_ITS | Encounter Summary ---
Author Organization [employer] ([place], [place], [place], [place]) Address [address] [place] [address] Care Team Providers Care Acid Bath Mixer Name Role Phone José Miguel Verde MD Primary Care Provider + [phone] Encounter Details Date Type Department Care Team (Late st Contact Info) Description 07/15/2020 Transcribed Document [facility] Family Medicine [address] [place] [address] ProviderNitin MD [address] [place] [address] Social History Tobacco Use Types Packs/Day Years Used Date Smoking Tobacco: Never Assessed Comments Unknown Sex and Gender Information Value Date Recorded Sex Assigned at Female 05/10/2022 1:38 PM CDT Legal Sex Female 1:38 PM CDT Gender Identity Female 05/10/2022 1:38 PM CDT Sexual Orientation Not on file documented as of this encounter Miscellaneous Notes * Cerner Conversion Note - Nitin Bueno MD - 07/15/2020 4:34 PM CDT [facility] [place] [address] GINA HECTOR :1945 Visit Time:07/15/2020 Your [...] appointment Where: [address] [place] [address]- Business (1) Follow Up with Follow up with primary care provider When Within 1 to 2 days Comments Take home medications as directed, follow with PCP, return to emergency Department with new or worsening symptoms Follow Up with MELVIN RASCON When Within 2 to 3 days Where: [address] [facility] [address] [place] [address]- Business (1) Allergies ibuprofen (Itching, Itching) [...] range between ( 0.0 and 7.0 ) [place] #: 0.55 K/uL -- Normal range between ( 0.16 and 1.00 ) Eos #: 0.06 x10(3)/uL -- Normal range between ( 0.00 and 0.80 ) [place] %: 9.3 % -- Normal range between [...] safe for you. General instructions ??? Take yxht-ajp-qdwrkcj and prescription medicines only as told by [...] 10/30/2006 Document Revised: 05/02/2019 Document Reviewed: 05/02/2019 [email or web address] Patient Education ?? 2020 [employer]. Nonspecific Chest Pain, Adult Chest pain can [...] these instructions at home: Medicines ??? Take iybt-hvz-pmlceyt and prescription medicines only as told by [...] 08/09/2006 Document Revised: 05/02/2019 Document Reviewed: 05/02/2019 [email or web address] Patient Education ?? 2020 [email or web address] Emergency Awareness and Preventative Care STROKE [...] Assistance with quitting is available by contacting 9-423-GDDL-NOW. This is a free resource providing counseling, [...] was given the opportunity to ask questions. Patient/Flask Maker Name: Patient/Flask Maker Signature: Relationship to Patient: Clinician/Hospital Flask Maker Signature: Please Provide a Telephone Number Where You Can Be Reached: Is it Permissible To Leave a Message? Date: Electronically signed by [facility], [facility] Conversion Echo Vasc Tech Cerner at 02/26/2023 11:06 PM CDT documented in this encounter Plan of Treatment Not on file documented as of this encounter Visit Diagnoses Not on filedocumented in this encounter Care Teams Acid Bath Mixer Relationship Specialty Start Date End Date José Miguel Verde MD [address] [place] [address] PCP - General Adolescent Medicine 03/07/23 documented as of this encounter
--- OUTSIDE RECORDS SUMMARY | 2025-05-17 09:30 | XMS_ITS | Encounter Summary ---
Author Organization [employer] ([place], [place], [place], [place]) Address [address] [place] [address] Care Team Providers Care Program Director/Morning Show Host Name Role Phone José Miguel Verde MD Primary Care Provider + [phone] Encounter Details Date Type Department Care Team (Late st Contact Info) Description 07/15/2020 Transcribed Document [facility] [place] Family Medicine [address] [place] [address] ProviderNitin MD [address] [place], [place] [phone] Social History Tobacco Use Types Packs/Day Years [...] Nitin ProviderMD - 07/15/2020 11:47 AM CDT [place] Suicide Severity Rating Scale (C-SSRS) Entered On: 07/15/2020 12:21 EDT Performed On: 07/15/2020 12:20 EDT by IVORY APPIAH RN [place] Suicide Severity Rating Scale (C-SSRS) CSSRS Past [...] on filedocumented in this encounter Care Teams Program Director/Morning Show Host Relationship Specialty Start Date End Date José Miguel Verde MD [address] [place] [address] PCP - General Adolescent Medicine 03/07/23 documented as of this encounter
--- OUTSIDE RECORDS SUMMARY | 2025-05-17 09:30 | XMS_ITS | Encounter Summary ---
Author Organization [employer] ([place], [place], [place], [place]) Address [address] [place] [address] Care Team Providers Care Utilization Engineer Name Role Phone José Miguel Verde MD Primary Care Provider + [phone] Encounter Details Date Type Department Care Team (Late st Contact Info) Description 01/08/2019 Transcribed Document [facility] [place] [place] Family Medicine [address] [place] [address] ProviderNitin MD [address], [place] [phone] Social History Tobacco Use Types Packs/Day Years [...] Conversion Note - Nitin ProviderMD - 01/08/2019 7:04 PM SENIOR INVESTIGATOR Patient: GINA HECTOR Age: 73 years Sex: [...] noted. Histroy of triple bypass. Dr. preciado social media specialist. . History of Present Illness The patient [...] EST Height Source Stated Height Entry Format [place] Height/Length, [place] (ft) 5 ft Height/Length [place] 2 Inch CLINICALHEIGHT 157.48 cm [place] Body Weight 49.73 kg Weight Source, ED Critical estimated dosing weight Weight Entry Format [place] Weight Urdu lb 230 lb CLINICALWEIGHT 104.55 kg Body [...] 18.0 % LOW Lymph # 1.04 x10(3)/uL [place] % 9.2 % HI [place] # 0.53 K/uL Eos % 0.5 % [...] appointment with her primary care doctor and social media specialist for discussion of recent ER visits. Patient [...] following educational materials: Gastroesophageal Reflux Disease, Adult, Pfvp-sr-Jypy, Food Choices for Gastroesophageal Reflux Disease, Adult, Oqas-de-Vbct, Nonspecific Chest Pain, Tbhv-ds-Ktgq. Follow up with: [facility] Within 2 to 3 days For further assistance with your Primary Care Physician please contact the Patient Resource Center at [phone]. Please follow up with Lester Peace.; MELVIN RASCON Within 2 to 3 days; Return to Emergency Department Within As needed Follow-up as instructed Return if condition worsens. Counseled: Patient, Family, Regarding diagnosis, Regarding diagnostic results, Regarding treatment plan, Patient indicated understanding of instructions. Electronically signed by Sarah Russell Conversion Assistant Manager Quality Management Cerner at 02/26/2023 11:07 PM CDT documented in this encounter Plan of Treatment Not on file documented as of this encounter Visit Diagnoses Not on filedocumented in this encounter Care Teams Utilization Engineer Relationship Specialty Start Date End Date José Miguel Verde MD [address] [place] [address] PCP - General Adolescent Medicine 03/07/23 documented as of this encounter
--- OUTSIDE RECORDS SUMMARY | 2025-05-17 09:30 | XMS_ITS | Encounter Summary ---
Author Organization [employer] ([place], [place], [place], [place]) Address [address] [place] [address] Care Team Providers Care Undercoater Name Role Phone José Miguel Verde MD Primary Care Provider + [phone] Encounter Details Date Type Department Care Team (Late st Contact Info) Description 07/15/2020 Transcribed Document [facility] [place] [place] Family Medicine [address] [place] [address] ProviderNitin MD [address], [place] [phone] Social History Tobacco Use Types Packs/Day Years [...] 07/15/2020 16:41 EDT Electronically signed by Drew [facility] Conversion Director Intelligence Analysis Programs Cerner at 02/26/2023 11:11 PM CDT documented in this encounter Plan of Treatment Not on file documented as of this encounter Visit Diagnoses Not on filedocumented in this encounter Care Teams Undercoater Relationship Specialty Start Date End Date José Miguel Verde MD [address] [place] [address] PCP - General Adolescent Medicine 03/07/23 documented as of this encounter
--- OUTSIDE RECORDS SUMMARY | 2025-05-17 09:30 | XMS_ITS | Encounter Summary ---
Author Organization [employer] ([place], [place], [place], [place]) Address [address] [place] [address] Care Team Providers Care Dentist Name Role Phone José Miguel Verde MD Primary Care Provider + [phone] Encounter Details Date Type Department Care Team (Late st Contact Info) Description 01/08/2019 Transcribed Document [facility] Family Medicine [address] [place] [address] ProviderNitin MD [address], [place] [phone] Social History Tobacco Use Types Packs/Day Years [...] - Nitin ProviderMD - 01/08/2019 11:24 PM CUTTER V GROOVE [address] [place] [address] PERSON INFORMATION Name GINA HECTOR Age 73 Years 1945 Sex Female Language Israeli PCP MELVIN RASCON MD-INT Marital Status Med Service Emergency Medicine Acct# Arrival 01/08/2019 18:41:00 Visit Reason Chest pain; CHEST PAIN/LEFT ARM PAIN Acuity 3 - Urgent LOS 000 04:43 Depart Date: 01/08/19 11:24 PM Address: [address] [facility] [address] [facility] [address] Comment: PROVIDER INFORMATION Provider Role Assigned Unassigned BEAR KING ARNP ED Physician 01/08/2019 18:50:05 Roc Saenz, COUNTY SURVEYOR Nurse 01/08/2019 18:59:17 KEYUR BROWN MD ED Physician 01/08/2019 21:12:40 Yemi Carrillo Rn-Resource ED Nurse 01/08/2019 22:58:38 DIAGNOSIS Atypical [...] PATIENT EDUCATION INFORMATION Instructions: Nonspecific Chest Pain, Aojl-sq-Waed; Food Choices for Gastroesophageal Reflux Disease, Adult, Qnlo-nw-Pmqe; Gastroesophageal Reflux Disease, Adult, Fmcl-kf-Ucei Follow up: With: Address: When: Return to Emergency Department Within As needed Comments: Follow-up as instructed Return if condition worsens With: Address: When: [facility] Within 2 to 3 days Comments: For further assistance with your Primary Care Physician please contact the Patient Resource Center at [phone]. Please follow up with Lester Peace. With: Address: When: MELVIN RASCON [address] [facility] [place] [phone] Business (1) Within 2 to 3 days Comment: documented in this encounter Plan of Treatment Not on file documented as of this encounter Visit Diagnoses Not on filedocumented in this encounter Care Teams Dentist Relationship Specialty Start Date End Date José Miguel Verde MD [address] [place] [address] PCP - General Adolescent Medicine 03/07/23 documented as of this encounter
--- OUTSIDE RECORDS SUMMARY | 2025-05-17 09:30 | XMS_ITS | Encounter Summary ---
Author Organization [employer] ([place], [place], [place], [place]) Address [address] [place] [address] Care Team Providers Care Top Hat Body Maker Name Role Phone José Miguel Verde MD Primary Care Provider + [phone] Encounter Details Date Type Department Care Team (Late st Contact Info) Description 01/08/2019 Transcribed Document [facility] [place] [address] [place] [address] ProviderNitin MD [address], [place] [id number] Social History Tobacco Use Types Packs/Day Years [...] - Nitin ProviderMD - 01/08/2019 6:41 PM SECURITY GUARD DISPATCHER ED Triage Entered On: 01/08/2019 18:57 EST Performed On: 01/08/2019 18:47 EST by Catherine Pugh, LIQUOR COMMISSIONER Triage Across the Room Triage Date/Time : 01/08/2019 18:47 EST Chief Complaint : Pt presents to the ER with chest pain that started Monday. Pain was left sided that radiates across chest. Burning in nature. Slight nausea noted. Histroy of triple bypass. Dr. preciado php engineer. Catherine Pugh, RN - 01/08/2019 18:47 EST DCP GENERIC CODE Tracking Acuity : 3 - Urgent Tracking Group : [facility] ED Catherine Pugh RN - 01/08/2019 18:47 [...] PNED ; Probability: 0 ; Diagnosis Code: [id number] ED Height and Weight Height Source : Stated Height Entry Format : [place] Height, Feet : 5 ft(Converted to: 152 cm, 60 Inch) Height, Inches : 2 Inch(Converted to: 0 ft 2 Inch, 5.08 cm) Clinical Height : 157.48 cm Weight Source, ED : Critical estimated dosing weight Weight Entry Format : [place] Weight, Pounds : 230 lb Clinical Dosing Weight : 104.55 kg Body Surface Area (BSA) : 2.03 m2 Body Mass Index : 42.2 kg/m2 (>HHI) [place] Body Weight (IBW) : 49.73 kg Catherine Pugh RN - 01/08/2019 18:47 EST Electronically signed by Drew [facility] Conversion Cytometry Technologist Cerner at 02/26/2023 11:09 PM CDT documented in this encounter Plan of Treatment Not on file documented as of this encounter Visit Diagnoses Not on filedocumented in this encounter Care Teams Top Hat Body Maker Relationship Specialty Start Date End Date José Miguel Verde MD [address] [place] [address] PCP - General Adolescent Medicine 03/07/23 documented as of this encounter
--- OUTSIDE RECORDS SUMMARY | 2025-05-17 09:30 | XMS_ITS | Encounter Summary ---
Author Organization [employer] ([place], [place], [place], [place]) Address [address] [place] [address] Care Team Providers Care Director Of Special Events Name Role Phone José Miguel Verde MD Primary Care Provider + [phone] Encounter Details Date Type Department Care Team (Late st Contact Info) Description 07/15/2020 Transcribed Document [facility] [place] [address] [place] [address] ProviderNitin MD [address] [place] [address] Social History Tobacco Use Types [...] Nitin ProviderMD - 07/15/2020 4:16 PM CDT [facility] [place] [address] GINA HECTOR :1945 Visit Time:07/15/2020 Your [...] Within 2 to 3 days Where: [address] Business (1) Allergies ibuprofen (Itching, Itching) levofloxacin [...] range between ( 0.0 and 7.0 ) [place] #: 0.55 K/uL -- Normal range between ( 0.16 and 1.00 ) Eos #: 0.06 x10(3)/uL -- Normal range between ( 0.00 and 0.80 ) [place] %: 9.3 % -- Normal range between [...] safe for you. General instructions ??? Take tzwy-xbw-qdbfcgm and prescription medicines only as told by [...] 10/30/2006 Document Revised: 05/02/2019 Document Reviewed: 05/02/2019 [employer] Patient Education ?? 2020 [employer]. Nonspecific Chest Pain, Adult Chest pain can [...] these instructions at home: Medicines ??? Take zyzq-tsm-fmuizhk and prescription medicines only as told by [...] 08/09/2006 Document Revised: 05/02/2019 Document Reviewed: 05/02/2019 [employer] Patient Education ?? 2020 [employer] Emergency Awareness and Preventative Care STROKE [...] Assistance with quitting is available by contacting 0-105-RMSW-NOW. This is a free resource providing counseling, [...] was given the opportunity to ask questions. Patient/Program Arranger Name: Patient/Program Arranger Signature: Relationship to Patient: Clinician/Hospital Program Arranger Signature: Please Provide a Telephone Number Where You Can Be Reached: Is it Permissible To Leave a Message? Date: documented in this encounter Plan of Treatment Not on file documented as of this encounter Visit Diagnoses Not on filedocumented in this encounter Care Teams Director Of Special Events Relationship Specialty Start Date End Date José Miguel Verde MD [address] [place] [address] PCP - General Adolescent Medicine 03/07/23 documented as of this encounter
--- OUTSIDE RECORDS SUMMARY | 2025-05-17 09:30 | XMS_ITS | Encounter Summary ---
Author Organization [employer] ([place], [place], [place], [place]) Address [address] [place] [address] Care Team Providers Care Biofuels Research Scientist Name Role Phone José Miguel Verde MD Primary Care Provider + [phone] Encounter Details Date Type Department Care Team (Late st Contact Info) Description 07/15/2020 Transcribed Document [facility] [place] Family Medicine [address] [place] [address] ProviderNitin MD [address] [place], [place] [id number] Social History Tobacco Use Types Packs/Day Years [...] Communication Barrier : None Primary Language : Chinese Any Spiritual/Cultural Needs or Requests : No [...] Neurologic ASMT, ED Neurologic Assessment WDL : WDL Neurological Symptoms : None Level of Consciousness : Alert, Awake Affect/Behavior : Appropriate, Calm, Cooperative Speech : Clear Orientation : Oriented x 4 Pupils Equal, Round, Reactive to Light : Yes IVORY APPIAH RN - 07/15/2020 12:20 EDT Electronically signed by [facility] Conversion Under Sheriff Cerner at 02/26/2023 11:14 PM CDT documented in this encounter Plan of Treatment Not on file documented as of this encounter Visit Diagnoses Not on filedocumented in this encounter Care Teams Biofuels Research Scientist Relationship Specialty Start Date End Date José Miguel Verde MD [address] [place] [address] PCP - General Adolescent Medicine 03/07/23 documented as of this encounter
--- OUTSIDE RECORDS SUMMARY | 2025-05-17 09:30 | XMS_ITS | Clinical Summary ---
Author Organization [employer] ([place], [place], [place], [place]) Address [address] [place] [address] Care Team Providers Care Milling Supervisor Name Role Phone José Miguel Verde MD Primary Care Provider + [phone] Allergies Active Allergy Reactions Criticality Noted Date [...] by mouth in the morning. Active pancrelipase, Fla-Btao-Cigc, (CREON) 36,000-114,000 - 180,000 unit CpDR capsule [...] Date Hamilton rded Speak language other than Somali at home Not on file 12/01/2023 Want [...] and Screening (12+) 05/28/2025 05/28/2024 Influenza Vaccine (#1) 2025 Pneumococcal 50+ years Completed 01/04/2018, 2016 Insurance MEDICARE PART [place] [address] [address] SUPP Advance Directives For more information, please contact: [phone] * Full Code (Latest Code Status on File) Date Activated Date Inactivated Comments 03/10/2023 5:00 PM 03/11/2023 12:05 PM * Full Code Date Activated Date Inactivated Comments 03/07/2023 2:51 PM 03/10/2023 5:00 PM Care Teams Milling Supervisor Relationship Specialty Start Date End Date José Miguel Verde MD [address] [place] [address] PCP - General Adolescent Medicine 03/07/23
--- OUTSIDE RECORDS SUMMARY | 2025-05-17 09:30 | XMS_ITS | Encounter Summary ---
Author Organization [employer] ([place], [place], [place], [place]) Address [address] [place] [address] Care Team Providers Care Smudger Name Role Phone José Miguel Verde MD Primary Care Provider + [phone] Encounter Details Date Type Department Care Team (Late st Contact Info) Description 01/08/2019 Transcribed Document [facility] [place] [address] [place] [address] ProviderNitin MD [address] [place] [address] Social History Tobacco Use Types [...] Conversion Note - Nitin Bueno MD - 01/08/2019 11:24 PM FUR COAT SEWER [address] [place] [address] Patient Information Name: GINA HECTOR Age: [...] please contact the Patient Resource Center at [phone]. Please follow up with Lester Peace. With: Address: When: MELVIN RASCON [address] [place] [address], [address] [place] [phone] Business (1) Within 2 to 3 days [...] you start to feel better. ??? Take rbjb-ddt-oiodheb and prescription medicines only as told by [...] 04/17/2009 Document Revised: 07/24/2017 Document Reviewed: 07/24/2017 [employer] Interactive Patient Education ? 2017 [employer] Food Choices for Gastroesophageal Reflux Disease, [...] VegetablesTomatoes. Tomato juice. Tomato and spaghetti sauce. Screven peppers. Onion and garlic. Horseradish. FruitsOranges, grapefruit, [...] spearmint. Fats and OilsHigh-fat foods. This includes Lithuanian fries and potato chips. OtherVinegar. Strong spices. [...] 04/30/2013 Document Revised: 04/06/2017 Document Reviewed: 09/03/2014 [employer] Interactive Patient Education ? 2017 [employer]. Gastroesophageal Reflux Disease, Adult Introduction Normally, [...] vinegar, hot sauces, and BBQ sauce. ? Cosmos fruit juices and citrus fruits, such as oranges, olga, and limes. ? Tomato-based foods, such as red sauce, chili, salsa, and pizza with red sauce. ? Fried and fatty foods, such as donuts, greek fries, potato chips, and high-fat dressings. ? [...] any changes in your symptoms. ??? Take ubeq-ymq-czcncja and prescription medicines only as told by [...] range between ( 0.0 and 7.0 ) [place] #: 0.53 K/uL -- Normal range between ( 0.16 and 1.00 ) Eos #: 0.03 x10(3)/uL -- Normal range between ( 0.00 and 0.80 ) [place] %: 9.2 % -- Normal range between [...] Ordered This statement is to verify that HECTORGINA Carranza was seen at [facility] Emergency Department on ,01/08/2019 23:24:10. This is [...] along the way. As a healthcare provider, [facility] recommends that you stop smoking. Assistance with quitting is available by contacting 0-545-KMKX-NOW. This is a free resource providing counseling, [...] Electronic Communications Privacy Act 18 U.S.C. ???Sections 8159-1305,?? and contain information intended for the specified [...] sure to sign up for the My [facility] patient portal, which gives you 05/06 access to your medical information ??? including these discharge instructions ??? using your computer, smartphone, or tablet. Just go to [employer] to get started. Questions? Call . Acknowledgment [...] Instructions: Emergency Physician: Electronically signed by Drew, [facility] Conversion Truck Driver Salesperson Cerner at 02/26/2023 11:12 PM CDT documented in this encounter Plan of Treatment Not on file documented as of this encounter Visit Diagnoses Not on filedocumented in this encounter Care Teams Smudger Relationship Specialty Start Date End Date José Miguel Verde MD [address] [place] [address] PCP - General Adolescent Medicine 03/07/23 documented as of this encounter
--- OUTSIDE RECORDS SUMMARY | 2025-05-17 09:30 | XMS_ITS | Encounter Summary ---
Author Organization [employer] ([place], [place], [place], [place]) Address [address] [place] [address] Care Team Providers Care Transit Operations Supervisor Name Role Phone José Miguel Verde MD Primary Care Provider + [phone] Encounter Details Date Type Department Care Team (Late st Contact Info) Description 07/15/2020 Transcribed Document [facility] [place] Family Medicine [address] [place] [address] ProviderNitin MD [address] [place] [address] Social History Tobacco Use Types [...] by Provider, No further action required x1 documented in this encounter Plan of Treatment Not on file documented as of this encounter Visit Diagnoses Not on filedocumented in this encounter Care Teams Transit Operations Supervisor Relationship Specialty Start Date End Date José Miguel Verde MD [address] [place] [address] PCP - General Adolescent Medicine 03/07/23 documented as of this encounter
[2025-05-17 09:39] LABS: Alanine Aminotransferase 29 U/L (12-78); Albumin Level 4.0 g/dl (3.5-5.0); Albumin/Globulin Ratio 1.8 (1.1-1.8); Alkaline Phosphatase 63 U/L (38-126); Anion Gap 13.1 mEq/L (5-15); Aspartate Amino Transferase 37 U/L (14-36); Bilirubin,Total 1.2 mg/dl (0.2-1.3); Blood Urea Nitrogen 26 mg/dl (7-17); Calcium 9.3 mg/dl (8.4-10.2); Carbon Dioxide 23 mmol/L (22.0-30.0); Chloride 102 mmol/L (98-107); Creatinine Clearance Estimated 29 mL/min (50-200); Creatinine,Serum 1.10 mg/dl (0.52-1.04); Estimated Glomerular Filt Rate 48 ml/min (>60); GFR (African American) 58 ML/MIN (>60); Globulin 2.2 g/dL (1.3-3.2); Glucose 116 mg/dl (74-100); Potassium 4.1 mmoL/L (3.5-5.1); Sodium 134 mmol/L (136-145); Total Protein,Serum 6.2 g/dl (6.3-8.2)
[2025-05-17 09:48] LABS: NT Pro Brain Natriuretic Pep. 881 pg/mL (0-450)
[2025-05-17 09:51] LABS: Troponin I 0.05 ng/ml (0.00-0.034)
[2025-05-17 10:31] LABS: Lipase 120 U/L (23-300)
--- NOTE | 2025-05-17 11:38 | PC.NURSE ---
Received report from MAREK Alford.
[2025-05-17] MEDS: ONDANSETRON 4MG/2ML VIAL 4 MG IV (12:38)
[2025-05-17 12:40] LABS: Troponin I 0.04 ng/ml (0.00-0.034)
== END 2025-05-17 13:25 | disposition home or self-care (01) ==
PROVIDERS: Emergency Provider Student in an Organized Health Care Education/Training Program; PCP Internal Medicine Adolescent Medicine
DX: R07.89 Other chest pain (principal); R00.1 Bradycardia, unspecified; I10 Essential (primary) hypertension; E78.5 Hyperlipidemia, unspecified; Z86.79 Personal history of other diseases of the circulatory system; Z95.1 Presence of aortocoronary bypass graft
CPT/HCPCS: 71045; 80053; 83690; 83880; 84484; 85025; 93005; 96374; 99285; J2405

== ENCOUNTER 2025-05-26 07:49 | Emergency (ER) | payer MEDICARE, BC, SELFPAY ==
[2025-05-26] VITALS (12 sets, daily range): BP systolic 124–139; BP diastolic 60–105; PULSE 59–74; RESP 13–23; TEMP 36.9–37; O2SAT 97–100; BMI 35.9
--- NOTE | 2025-05-26 07:52 | ECG_ITS ---
APPROVED REPORT Exam: Resting ECG HR:62 bpm ECG Measurements Heart Rate 62 AXES IL 135 P 50 QRSd 105 QRS 34 QT 414 T 209 QTc 420 Conclusion Normal sinus rhythm at 62 bpm, T wave inversions diffusely, no acute ST or T wave changes concerning for ischemia, unchanged from prior on 05/17/2025 Electronically signed by : Germania Armstrong, 05/26/2025 17:57:01
--- NOTE | 2025-05-26 07:52 | HMH.EDGENADL ---
Discharge Plan Disposition Patient Disposition: Home, Self-Care Condition: Good Prescriptions Prescriptions: No Action Gemtesa 75 mg tablet 75 mg PO DAILY cholecalciferol (vitamin D3) 125 mcg (5,000 unit) capsule 125 mcg PO DAILY Voquezna 20 mg tablet 20 mg PO DAILY Qty: 90 3RF cyanocobalamin (vitamin B-12) 1,000 mcg/mL solution 1,000 mcg IM MONTHLY isosorbide mononitrate 60 mg tablet extended release 24 hr 60 mg PO DAILY Qty: 30 2RF colestipol 1 gram tablet See Rx Instructions .ROUTE .COMPLEX Qty: 180 2RF Dose Instruction: TAKE 1 TABLET BY MOUTH TWICE A DAY Rx Instructions: TAKE 1 TABLET BY MOUTH TWICE A DAY atorvastatin [Lipitor] 10 MG tablet 10 mg PO HS alprazolam 0.25 MG tablet 0.25 mg PO TIDP PRN (Reason: Anxiety) cevimeline 30 MG capsule 30 mg PO TID hydroxychloroquine 200 MG tablet 200 mg PO BID Patient Comments: 1 a day. 2 the next day colchicine 0.6 MG tablet 0.6 mg PO DAILY azelastine-fluticasone [Dymista] 137-50 mcg/spray spray,non-aerosol 1 spray INTRANASAL BID ondansetron HCl 4 mg tablet 4 mg PO Q8HP PRN (Reason: nausea and vomiting) clopidogrel 75 mg Tablet 75 mg PO DAILY 30 Days Qty: 30 0RF scopolamine base 1 mg over 3 days patch 3 day 1 patch transdermal Q3D PRN (Reason: nausea and vomiting) Qty: 10 1RF nitroglycerin 0.4 MG tablet, sublingual 0.4 mg sublingual Q5MINP PRN (Reason: Chest Pain) aspirin 81 MG tablet,delayed release (DR/EC) 81 mg PO DAILY atenolol 50 MG tablet 50 mg PO DAILY cyclosporine [Restasis] 1 EACH dropperette 1 drp ophthalmic (eye) DAILY furosemide 20 mg tablet 20 mg PO DAILYP PRN (Reason: Fluid) Creon 36,000-114,000- 180,000 unit capsule,delayed release(DR/EC) 1 cap PO AC Rx Instructions: Take 1 capsule by mouth before meals/snacks max 6XD Referrals Follow up/Referrals: Provider,Referral, MD [Primary Care Provider, Medical] - See instructions Activity Restrictions/Add. 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 Continue the hydrocortisone on your skin for any itching. Return to the emergency department if you continue to have chest pain that does not resolve or if you have any other acute concerns. Clinical Impressions Clinical Impression: Chest pain, Irritation symptom of skin Instructions Patient Instructions: DI for Chest Pain Print Language Print Language: Nigerien Discharge ED Provider: Germania Armstrong Adult HPI General Chief complaint: Chest Pain Stated complaint: chest pain Time Seen by Provider: 05/26/25 07:51 History of Present Illness HPI narrative: Patient is a 79-year-old female with a past medical history of coronary artery disease who underwent PCI on 05/15 who presented to the emergency department with chest pain. Patient states around 6:00 this morning she had an episode of chest pain located on the left side that was present for less than 5 minutes. Patient took 324 of aspirin but did not take any other medications. Patient denies any shortness of breath. Patient denies any fevers. Patient stated that her pain was nonradiating. Patient's pain was a dull ache in nature. Patient has not had any vomiting diarrhea abdominal pain. Patient has not any back pain. Patient has not had any headache or vision changes. Patient states that she was told to take Imdur, was recently told to increase to 60 mg. Patient recently saw her commercial driver's license driver on May 19. Patient has no active complaints, patient is currently pain-free in the emergency department. Related Data Home Medications ?Medication ?Instructions ?Recorded ?Confirmed alprazolam 0.25 mg tablet 0.25 mg PO TIDP PRN Anxiety 01/06/19 05/19/25 atorvastatin 10 mg tablet (Lipitor) 10 mg PO HS 01/06/19 05/19/25 cevimeline 30 mg capsule 30 mg PO TID 01/06/19 05/19/25 colchicine 0.6 mg tablet 0.6 mg PO DAILY 01/06/19 05/19/25 hydroxychloroquine 200 mg tablet 200 mg PO BID Arthritis 01/06/19 05/19/25 nitroglycerin 0.4 mg sublingual 0.4 mg sublingual Q5MINP PRN Chest 08/30/19 05/19/25 tablet Pain aspirin 81 mg tablet,delayed 81 mg PO DAILY 01/04/20 05/19/25 release atenolol 50 mg tablet 50 mg PO DAILY 01/04/20 05/19/25 cyclosporine 0.05 % eye drops in a 1 drp ophthalmic (eye) DAILY dry 01/04/20 05/19/25 dropperette (Restasis) eyes cyanocobalamin (vitamin B-12) 1,000 mcg IM MONTHLY 08/21/24 05/19/25 1,000 mcg/mL injection solution cholecalciferol (vitamin D3) 125 125 mcg PO DAILY 12/18/24 05/19/25 mcg (5,000 unit) capsule furosemide 20 mg tablet 20 mg PO DAILYP PRN Fluid 12/18/24 05/19/25 vibegron 75 mg tablet (Gemtesa) 75 mg PO DAILY 12/18/24 05/19/25 wkduod-vuybpjic-nuiegsm 1 cap PO AC 03/26/25 05/19/25 36,000-114,000-180,000 unit capsule,delay rel (Creon) azelastine 137 mcg-fluticasone 50 1 spray intranasal BID 05/11/25 05/19/25 mcg/spray nasal spray (Dymista) ondansetron HCl 4 mg tablet 4 mg PO Q8HP PRN nausea and 05/11/25 05/19/25 vomiting Previous Rx's ?Medication ?Instructions ?Recorded vonoprazan 20 mg tablet (Voquezna) 20 mg PO DAILY #90 tabs 09/23/24 clopidogrel 75 mg tablet 75 mg PO DAILY 30 days #30 tabs 05/14/25 scopolamine base 1 mg over 3 days 1 patch transdermal Q3D PRN nausea 05/15/25 transdermal patch and vomiting #10 ea isosorbide mononitrate 60 mg 60 mg PO DAILY #30 tabs 05/19/25 tablet,extended release 24 hr colestipol 1 gram tablet See Rx Instructions .Route 05/21/25 .COMPLEX #180 tabs Allergies Allergy/AdvReac Type Severity Reaction Status Date / Time Penicillins Allergy Intermediate Rash Verified 05/19/25 11:00 ibuprofen (From Motrin) Allergy Mild Rash Verified 05/19/25 11:00 sulfamethoxazole (From Allergy Unknown Verified 05/19/25 11:00 Bactrim) allergy reaction trimethoprim (From Bactrim) Allergy Unknown Verified 05/19/25 11:[address] [facility] Disclaimer: The information contained in this section may have been updated after the patient was seen, as this information can be updated by other users. Medical History (Updated 05/26/25 @ 12:52 by Germania Armstrong DO) Anxiety Diverticulitis Pancreatitis Hyperlipidemia Hypertension Rheumatoid arthritis Osteoarthritis Hemorrhoids Heart disease Gout GERD (gastroesophageal reflux disease) Colon polyps Colitis CAD (coronary artery disease) History of blood transfusion Surgical History H/O left wrist surgery History of right hip replacement History of cholecystectomy History of back surgery Hx of CABG H/O right wrist surgery Family History Father Cancer Social History Smoking Status: Never smoker alcohol intake: never substance use type: denies use current occupational status: retired Travel in the last 8 weeks?: None caffeine: Yes Have you lived/traveled outside US in past 30 days?: No Contact w/someone who lives/traveled outside US past 30 days?: No Exposure to someone with infectious disease in past 14 days?: No Do you have a fever (greater than 100.4 F or 38 C)?: No Have you tested positive for COVID-19?: No Exposed to someone with COVID-19 in past 14 days?: No Do you have a sore throat?: No Do you have a cough?: No Do you have any weakness?: No Do you have any diarrhea?: No Are you experiencing any unusual bleeding?: No Do you have any muscle aches/pain?: No Do you have any abdominal pain?: No Are you experiencing loss of taste or smell?: No Other Medical History Have you received the Flu Vaccine for this season: No Have you received the Pneumonia Vaccine: Yes ROS Obtained: Yes All systems reviewed & no additional complaints except as documented and Yes Systems reviewed as appropriate & no additional complaints except as documented Physical Exam General General appearance: alert and in no apparent distress Head Head exam: atraumatic, normocephalic and normal inspection Eye Eye exam: Present normal appearance, PERRL and EOMI; Absent scleral icterus ENT ENT exam: Present normal exam and normal external ear exam Neck Neck exam: Present normal inspection and full ROM Chest Chest inspection: Present normal inspection and symmetric chest wall rise Respiratory Respiratory exam: Present normal lung sounds bilaterally; Absent respiratory distress or wheezes Cardiovascular Cardiovascular exam: Present regular rate, normal rhythm and normal heart sounds Abdominal Exam Abdominal exam: Present soft and distention; Absent tenderness, guarding or rebound Extremities Exam Extremities exam: Present normal inspection and full ROM Back Exam Back exam: Present normal inspection and full ROM Neurological Exam Neurological exam: Present alert and oriented X3 Psychiatric Psychiatric exam: Present normal affect and normal mood Skin Skin exam: Present warm and dry Medical Decision Making Medical Records Screening: Per USPSTF and CDC recommendations, given the prevalence of disease in our region, it is our hospital?s policy to screen for HIV and viral Hepatitis for all patients aged 18 and over and those with ongoing risk factors. Earl Inquiry Pt receiving controlled substance: No Vital Signs: 05/26/25 08:00 05/26/25 08:09 05/26/25 08:30 Temperature 98.5 F Temperature Source Oral Pulse Rate 64 61 Pulse Rate [Left Radial] 66 Respiratory Rate 14 23 16 Blood Pressure 133/65 129/68 Blood Pressure [Right Arm] 131/105 H Blood Pressure Mean 87 88 Blood Pressure Mean [Right Arm] 113 Blood Pressure Source Blood Pressure Source [Right Arm] Automatic Cuff Blood Pressure Position Blood Pressure Position [Right Arm] Supine 02 Sat by Pulse Oximetry 98 99 99 Oxygen Delivery Method Room Air 05/26/25 09:00 05/26/25 09:31 05/26/25 10:00 Temperature Temperature Source Pulse Rate 61 66 59 L Pulse Rate [Left Radial] Respiratory Rate 16 16 13 Blood Pressure 137/66 139/70 124/66 Blood Pressure [Right Arm] Blood Pressure Mean 89 93 Blood Pressure Mean [Right Arm] Blood Pressure Source Blood Pressure Source [Right Arm] Blood Pressure Position Blood Pressure Position [Right Arm] 02 Sat by Pulse Oximetry 100 98 97 Oxygen Delivery Method 05/26/25 10:30 05/26/25 11:00 05/26/25 11:30 Temperature Temperature Source Pulse Rate 71 74 63 Pulse Rate [Left Radial] Respiratory Rate 14 18 16 Blood Pressure 129/66 128/63 134/68 Blood Pressure [Right Arm] Blood Pressure Mean 90 90 Blood Pressure Mean [Right Arm] Blood Pressure Source Blood Pressure Source [Right Arm] Blood Pressure Position Blood Pressure Position [Right Arm] 02 Sat by Pulse Oximetry 97 98 97 Oxygen Delivery Method 05/26/25 12:00 05/26/25 12:30 05/26/25 12:50 Temperature 98.6 F Temperature Source Oral Pulse Rate 69 65 Pulse Rate [Left Radial] Respiratory Rate 16 16 15 Blood Pressure 137/60 133/65 133/65 Blood Pressure [Right Arm] Blood Pressure Mean Blood Pressure Mean [Right Arm] Blood Pressure Source Automatic Cuff Blood Pressure Source [Right Arm] Blood Pressure Position Supine Blood Pressure Position [Right Arm] 02 Sat by Pulse Oximetry 98 Oxygen Delivery Method Room Air Lab Data Lab results reviewed: Yes I reviewed the patient's lab results. Lab Results 05/26/25 08:28: WBC 4.3 L, RBC 3.66 L, Hgb 11.8 L, Hct 35.9 L, MCV 98.1, MCH 32.2 H, MCHC 32.9, RDW 13.2, Plt Count 153, MPV 10.7 H, Neut % (Auto) 77.9, Lymph % (Auto) 13.1, Jennings % (Auto) 7.5, Eos % (Auto) 0.5, Baso % (Auto) 0.5, Neut # (Auto) 3.4, Lymph # (Auto) 0.6 L, Jennings # (Auto) 0.3, Eos # (Auto) 0.0, Baso # (Auto) 0.0, Sodium 141, Potassium 4.0, Chloride 103, Carbon Dioxide 27, Anion Gap 15.0, BUN 17, Creatinine 1.00, Estimated Creat Clear 59, Estimated GFR 54 L, Est GFR ( Amer) 65, Glucose 111 H, Calcium 9.5, Total Bilirubin 1.2, AST 30, ALT 21, Alkaline Phosphatase 60, Troponin I 0.03, NT-Pro-B Natriuret Pep 1140 H, Total Protein 6.1 L, Albumin 3.9, Globulin 2.2, Albumin/Globulin Ratio 1.8, Lipase 70 05/26/25 11:18: Troponin I 0.03 05/26/25 08:28 05/26/25 08:28 Orders (Tests/Meds): ED MEDICATIONS Discontinued Medications Generic Name Dose Route Start Last Admin Trade Name Freq PRN Reason Stop Dose Admin Belladonna Alkaloids 60 ml 05/26/25 08:16 05/26/25 09:19 Belladonna Alkaloids 60 Ml Ml PO 05/26/25 08:17 60 ml ONCE ONE Administration ORDERS Category Date Time Status XR chest portable Stat Exams 05/26/25 08:17 Completed Complete Blood Count Auto Diff Stat Lab 05/26/25 08:28 Completed Comprehensive Metabolic Panel Stat Lab 05/26/25 08:28 Completed Lipase Stat Lab 05/26/25 08:28 Completed NT Pro Brain Natriuretic Pep. Stat Lab 05/26/25 08:28 Completed Troponin I Q3H Lab 05/26/25 11:18 Completed Troponin I Stat Lab 05/26/25 08:28 Completed ECG Data Tracing #1: Normal sinus rhythm 62 bpm, T wave inversions diffusely, no acute ST or T wave changes concerning for ischemia, unchanged from prior on 05/17/2025 Medical Decision Narrative: Patient is a 79-year-old female with a past medical history of coronary artery disease who presented to the emergency department with chest pain. Patient states that she was awake this morning when she had an episode of chest pain on the left side around 6:00 this morning that lasted for last than 5 minutes. Patient states that her pain did not feel similar to previous MA symptoms. Patient recently underwent PCI and was seen here in the emergency department on May 17. Patient was seen in cardiology clinic on May 19 and patient was placed on Imdur which was increased to 60 mg on the . Patient states that her pain was not radiating, dull in nature, patient did not have any associated shortness of breath. Patient did not take any medications for her pain except for 324 of aspirin. On initial arrival in the emergency department, patient was hemodynamically stable with unremarkable vital signs. Patient was pain-free on my evaluation. Differential includes but not limited to: ACS/MA, pneumothorax, pleural effusion, costochondritis, amongst others. Patient's labs were reviewed and interpreted by myself:Patient CBC showed no leukocytosis, hemoglobin was stable. CMP was unremarkable. BNP mildly elevated at 1140. Lipase normal.Initial troponin 0.03, second troponin 0.03. Chest x-ray was reviewed and interpreted by myself and showed no focal consolidation, pneumothorax, pleural effusion or other acute cardiopulmonary process. EKG was reviewed and interpreted by myself and showed T wave inversions but no acute ST or T wave changes concerning for ischemia, patient's EKG was unchanged from prior obtained on May 17. Given that patient has been pain-free in the emergency department I felt the patient was appropriate for discharge with outpatient follow-up with cardiology. Patient was otherwise discharged home in stable condition. Critical Care Critical Care Time Critical Care Time: No
--- OUTSIDE RECORDS SUMMARY | 2025-05-26 07:59 | XMS_ITS | Encounter Summary ---
Author Organization [employer] ([place], [place], [place], [place]) Address [address] [place] [address] Care Team Providers Care Shank Sander Name Role Phone José Miguel Verde MD Primary Care Provider + [phone] Encounter Details Date Type Department Care Team (Late st Contact Info) Description 07/15/2020 Transcribed Document [facility] [place] Family Medicine [address] [place] [address] ProviderNitin MD [address], [place] [id number] Social History Tobacco Use Types Packs/Day Years [...] On: 07/15/2020 11:56 EDT by CARMEN PICKETT, SPREADER BOX OPERATOR Triage Across the Room Chief Complaint : pt c/o CP for 2 days, hurting in left arm, sharp 10, took NTG yesterday went away, started today took NTH with xanax and now a 4/10, no NVD, Triage Date/Time : 07/15/2020 11:56 EDT CARMEN PICKETT RN - 07/15/2020 11:56 EDT DCP GENERIC CODE Tracking Acuity : 2 - Emergent Tracking Group : [facility] ED CARMEN PICKETT RN - 07/15/2020 11:56 EDT Mode of Arrival : Ambulatory Transported to ED by : Private vehicle To Room Via : Wheelchair Accompanied By : Unaccompanied ED Vital Signs : Document Height & Weight : Document ED Allergies : Document ED Reason for Visit : Document Tetanus Immunization : Unknown Parole Hearing Officer Needed : No CARMEN PICKETT RN - [...] O/E - a rash ; Created By: [email or web address]; Reaction Status: Active ; Category: Drug ; [...] PNED ; Probability: 0 ; Diagnosis Code: [id number] ED Height and Weight Height Source : Stated Height Entry Format : [place] Height, Feet : 5 ft(Converted to: 152 cm, 60 Inch) Height, Inches : 2 Inch(Converted to: 0 ft 2 Inch, 5.08 cm) Clinical Height : 157.48 cm Weight Source, ED : Critical estimated dosing weight Weight Entry Format : [place] Weight, Pounds : 222 lb Clinical Dosing Weight : 100.91 kg Body Surface Area (BSA) : 2 m2 Body Mass Index : 40.7 kg/m2 (>HHI) [place] Body Weight (IBW) : 49.73 kg CARMEN [...] on filedocumented in this encounter Care Teams Shank Sander Relationship Specialty Start Date End Date José Miguel Verde MD [address] [place] [address] PCP - General Adolescent Medicine 03/07/23 documented as of this encounter
--- OUTSIDE RECORDS SUMMARY | 2025-05-26 07:59 | XMS_ITS | Encounter Summary ---
Author Organization [employer] ([place], [place], [place], [place]) Address [address] [place] [address] Care Team Providers Care Etcher Printed Circuit Boards Name Role Phone José Miguel Verde MD Primary Care Provider + [phone] Encounter Details Date Type Department Care Team (Late st Contact Info) Description 07/15/2020 Transcribed Document [facility] [place] [address] [place] [address] ProviderNitin MD [address] [place] [address] Social History Tobacco Use Types [...] 07/15/2020 4:17 PM CDT Electronically signed by [facility] Conversion Mechanical Detailer Jessica at 02/26/2023 10:51 PM CDT documented in this encounter Plan of Treatment Not on file documented as of this encounter Visit Diagnoses Not on filedocumented in this encounter Care Teams Etcher Printed Circuit Boards Relationship Specialty Start Date End Date José Miguel Verde MD [address] [place] [address] PCP - General Adolescent Medicine 03/07/23 documented as of this encounter
--- OUTSIDE RECORDS SUMMARY | 2025-05-26 07:59 | XMS_ITS | Encounter Summary ---
Author Organization [employer] ([place], [place], [place], [place]) Address [address] [place] [address] Care Team Providers Care Concrete Floor Installer Name Role Phone José Miguel Verde MD Primary Care Provider + [phone] Encounter Details Date Type Department Care Team (Late st Contact Info) Description 01/08/2019 Transcribed Document [facility] [place] Family Medicine [address] [place] [address] ProviderNitin MD [address] [id number] Social History Tobacco Use Types Packs/Day Years [...] - Nitin ProviderMD - 01/08/2019 7:04 PM TAG STRINGER Patient: GINA HECTOR Age: 73 years Sex: [...] noted. Histroy of triple bypass. 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 . History of Present Illness The patient [...] EST Height Source Stated Height Entry Format [place] Height/Length, TURKMEN (ft) 5 ft Height/Length TURKMEN 2 Inch CLINICALHEIGHT 157.48 cm [place] Body Weight 49.73 kg Weight Source, ED Critical estimated dosing weight Weight Entry Format [place] Weight [place] lb 230 lb CLINICALWEIGHT 104.55 kg Body [...] 18.0 % LOW Lymph # 1.04 x10(3)/uL [place] % 9.2 % HI Ma[place]ick # 0.53 K/uL Eos % 0.5 % [...] appointment with her primary care doctor and harvest contractor for discussion of recent ER visits. Patient [...] following educational materials: Gastroesophageal Reflux Disease, Adult, Jvcw-[id number], Food Choices for Gastroesophageal Reflux Disease, Adult, Olci-mt-Vofb, Nonspecific Chest Pain, [id number]. Follow up with: [facility] Within 2 to 3 days For further assistance with your Primary Care Physician please contact the Patient Resource Center at [phone]. Please follow up with Lester Peace.; MELVIN [...] on filedocumented in this encounter Care Teams Concrete Floor Installer Relationship Specialty Start Date End Date José Miguel Verde MD [address] [place] [address] PCP - General Adolescent Medicine 03/07/23 documented as of this encounter
--- OUTSIDE RECORDS SUMMARY | 2025-05-26 07:59 | XMS_ITS | Data Portability ---
Author Organization [facility] Address [address] [place] [address] Care Team Providers Care Garment Folder Name Role Phone FROILAN BAGLEY Hematology/Oncology [phone] MEGAN TOM Inspector Poising Assessment No assessment recorded. Plan of Treatment Reminders Order Date Submit Date Provider Last Modified By Organization Details Last Modified Time Details Appointments RECHECK 2024 03:45P M MIGUEL SALAZAR MD Not available Not available Not available Lab None recorded . Referral None recorded . Procedures None recorded . Surgeries None recorded . Imaging None recorded . Medication Orders None recorded . Patient TargetsNo targets recorded. Patient Instructions Encounter Date Encounter Id Patient Instructions Last Modified By Organization Details Last Modified Time 09/09/2019 [id number] gout: care instructions [email or web address] Not available 09/09/2019 09:47:00 thrombocytopenia : care instructions [email or web address] Not available 09/09/2019 09:47:00 body mass index: care instructions [email or web address] Not available 09/09/2019 09:47:00 Body Mass Index: Care Instructions-LC [email or web address] Not available 09/09/2019 09:46:59 learning about healthy weight [email or web address] Not available 09/09/2019 09:47:00 rheumatoid arthritis diet: care instructions [email or web address] Not available 09/09/2019 09:47:00 Rheumatoid Arthritis (RA): Care Instructions [email or web address] Not available 09/09/2019 09:47:00 Reason for Referral None Reported. Results Created Date Observation Date Name Description Value Unit Range Abnormal Flag Note LastModifiedBy Organization Detail LastModifiedTime 09/09/20 19 09/09/2019 CBC w/ auto diff white blood cells 5.7 K/uL 3.8-10 .8 normal Not Available [facility] [address] [place] [address], [address], 09/09/2019 10:28:34 09/09/20 19 09/09/2019 CBC w/ auto diff red blood cells 4.35 M/uL 3.80-5 .20 normal Not Available [facility] [address] [place] [address], [address], 09/09/2019 10:28:34 09/09/20 19 09/09/2019 CBC w/ auto diff hemoglobin 14.2 g/dL 12.0-1 6.0 normal Not Available [facility] [address] [place] [address], [address], 09/09/2019 10:28:34 09/09/20 19 09/09/2019 CBC w/ auto diff hematocrit 41.2 % 35.0-4 7.0 normal Not Available [facility] [address] [place] [address], [address], 09/09/2019 10:28:34 09/09/20 19 09/09/2019 CBC w/ auto diff MCV 95 fL 80-100 normal Not Available [facility] [address] [place] [address], [address], 09/09/2019 10:28:34 09/09/20 19 09/09/2019 CBC w/ auto diff MCH 33 pg 26-35 normal Not Available [facility] [address] [place] [address], [address], 09/09/2019 10:28:34 09/09/20 19 09/09/2019 CBC w/ auto diff MCHC 34 g/dL 32-36 normal Not Available [facility] [address] [place] [address], [address], 09/09/2019 10:28:34 09/09/20 19 09/09/2019 CBC w/ auto diff RDW 13.8 % 11.0-1 5.0 normal Not Available [facility] [address] [place] [address], [address], 09/09/2019 10:28:34 09/09/20 19 09/09/2019 CBC w/ auto diff MPV 9.2 fL 6.2-10 .5 normal Not Available [facility] [address] [place] [address], [address], 09/09/2019 10:28:34 09/09/20 19 09/09/2019 CBC w/ auto diff platelet count 128 K/uL 130-40 0 low Not Available [facility] [address] [place] [address], [address], 09/09/2019 10:28:34 09/09/20 19 09/09/2019 CBC w/ auto diff neutrophil,a bsolute 4.4 K/uL 1.6-8. 4 normal Not Available [facility] [address] [place] [address], [address], 09/09/2019 10:28:34 09/09/20 19 09/09/2019 CBC w/ auto diff lymphocyte,a bsolute 0.7 K/uL 0.4-5. 1 normal Not Available [facility] [address] [place] [address], [address], 09/09/2019 10:28:34 09/09/20 19 09/09/2019 CBC w/ auto diff monocyte,abs olute 0.5 K/uL 0.0-1. 2 normal Not Available [facility] [address] [place] [address], [address], 09/09/2019 10:28:34 09/09/20 19 09/09/2019 CBC w/ auto diff eosinophil,a bsolute 0.1 K/uL 0.0-0. 8 normal Not Available [facility] [address] [place] [address], [address], 09/09/2019 10:28:34 09/09/20 19 09/09/2019 CBC w/ auto diff basophil,abs olute 0.0 K/uL 0.0-0. 3 normal Not Available [facility] [address] [place] [address], [address], 09/09/2019 10:28:34 09/09/20 19 09/09/2019 CBC w/ auto diff % neutrophils 76.0 % 42.0-7 8.0 normal Not Available [facility] [address] [place] [address], [address], 09/09/2019 10:28:34 09/09/20 19 09/09/2019 CBC w/ auto diff % lymphocytes 12.6 % 11.0-4 7.0 normal Not Available [facility] [address] [place] [address], [address], 09/09/2019 10:28:34 09/09/20 19 09/09/2019 CBC w/ auto diff % monocytes 8.8 % 0.0-11 .0 normal Not Available [facility] [address] [place] [address], [address], 09/09/2019 10:28:34 09/09/20 19 09/09/2019 CBC w/ auto diff % eosinophils 1.9 % 0.0-7. 0 normal Not Available [facility] [address] [place] [address], [address], 09/09/2019 10:28:34 09/09/2009/09/2019 CBC w/ auto diff % basophils 0.7 % 0.0-3. 0 normal Not Available [facility] [address] [place] [address], [address], 09/09/2019 10:28:34 09/09/20 19 09/09/2019 CBC w/ auto diff nucleated red cells 0.0 % 0.0-0. 9 normal Not Available [facility] [address] [place] [address], [address], 09/09/2019 10:28:34 09/09/20 19 09/09/2019 CBC w/ auto diff nucleated RBCs, absolute 0.00 K/uL not estab. normal Not Available [facility] [address] [place], [address], 09/09/2019 10:28:34 09/09/2009/09/2019 ldh, serum or plasm a LDH 248 U/L 135-21 4 high Not Available [facility] [address] [place], [address], 09/09/2019 11:26:41 09/09/2009/09/2019 vitam in B12 + folat e, serum or blood folic acid 18.4 NG/mL 4.8-24 .2 normal Not Available [facility] [address] [place], [address], 09/09/2019 11:43:22 09/09/20 19 09/09/2019 vitam in B12 + folat e, serum or blood vitamin B12 718 pg/mL 232-12 45 normal Not Available [facility] [address] [place], [address], 09/09/2019 11:43:22 09/09/2009/19/2019 JAYDEN (anti nucle ar antib odies ) panel , serum JAYDEN screen NEGATI VE negati ve normal JAYDEN IFA is a first line scree n for detec ting the prese nce of up to appro ximat luis felipe 150 autoa ntibo dies in vario us autoi mmune disea ses. A negat iibs JAYDEN IFA resul t sugge sts an [...] Patte rns (http s://d oi.or g/10. 1515/ [facility]- 2017- 0052) For addit ional infor roxanna monge refer to http: //sandip Barrientosia jovanni ics.c om/fa q/FAQ 177 (This link is being provi ded for infor david darnell/ educa sidney l purpo ses only. ) TEST PERFO RMED AT: [facility] [address] [place] [address] WHIT Carranza MD Not Available [facility] [address] [place] [address], [address], 09/19/2019 16:56:22 04/20/20 20 04/20/2020 CBC w/ auto diff white blood cells 5.9 K/uL 3.8-10 .8 normal Not Available [facility] [address] [place] [address], [address], 04/20/2020 11:52:50 04/20/20 20 04/20/2020 CBC w/ auto diff red blood cells 4.40 M/uL 3.80-5 .20 normal Not Available [facility] [address] [place] [address], [address], 04/20/2020 11:52:50 04/20/2004/20/2020 CBC w/ auto diff hemoglobin 14.5 g/dL 12.0-1 6.0 normal Not Available [facility] [address] [place] [address], [address], 04/20/2020 11:52:50 04/20/2004/20/2020 CBC w/ auto diff hematocrit 42.0 % 35.0-4 7.0 normal Not Available [facility] [address] [place] [address], [address], 04/20/2020 11:52:50 04/20/20 20 04/20/2020 CBC w/ auto diff MCV 96 fL 80-100 normal Not Available [facility] [address] [place] [address], [address], 04/20/2020 11:52:50 04/20/20 20 04/20/2020 CBC w/ auto diff MCH 33 pg 26-35 normal Not Available [facility] [address] [place] [address], [address], 04/20/2020 11:52:50 04/20/20 20 04/20/2020 CBC w/ auto diff MCHC 34 g/dL 32-36 normal Not Available [facility] [address] [place] [address], [address], 04/20/2020 11:52:50 04/20/20 20 04/20/2020 CBC w/ auto diff RDW 13.6 % 11.0-1 5.0 normal Not Available [facility] [address] [place] [address], [address], 04/20/2020 11:52:50 04/20/20 20 04/20/2020 CBC w/ auto diff MPV 9.0 fL 6.2-10 .5 normal Not Available [facility] [address] [place] [address], [address], 04/20/2020 11:52:50 04/20/20 20 04/20/2020 CBC w/ auto diff platelet count 132 K/uL 130-40 0 normal Not Available [facility] [address] [place] [address], [address], 04/20/2020 11:52:50 04/20/20 20 04/20/2020 CBC w/ auto diff neutrophil,a bsolute 3.9 K/uL 1.6-8. 4 normal Not Available [facility] [address] [place] [address], [address], 04/20/2020 11:52:50 04/20/20 20 04/20/2020 CBC w/ auto diff lymphocyte,a bsolute 1.3 K/uL 0.4-5. 1 normal Not Available [facility] [address] [place] [address], [address], 04/20/2020 11:52:50 04/20/20 20 04/20/2020 CBC w/ auto diff monocyte,abs olute 0.6 K/uL 0.0-1. 2 normal Not Available [facility] [address] [place] [address], [address], 04/20/2020 11:52:50 04/20/20 20 04/20/2020 CBC w/ auto diff eosinophil,a bsolute 0.1 K/uL 0.0-0. 8 normal Not Available [facility] [address] [place] [address], [address], 04/20/2020 11:52:50 04/20/20 20 04/20/2020 CBC w/ auto diff basophil,abs olute 0.1 K/uL 0.0-0. 3 normal Not Available [facility] [address] [place] [address], [address], 04/20/2020 11:52:50 04/20/20 20 04/20/2020 CBC w/ auto diff % neutrophils 65.0 % 42.0-7 8.0 normal Not Available [facility] [address] [place] [address], [address], 04/20/2020 11:52:50 04/20/20 20 04/20/2020 CBC w/ auto diff % lymphocytes 21.6 % 11.0-4 7.0 normal Not Available [facility] [address] [place] [address], [address], 04/20/2020 11:52:50 04/20/20 20 04/20/2020 CBC w/ auto diff % monocytes 10.0 % 0.0-11 .0 normal Not Available [facility] [address] [place] [address], [address], 04/20/2020 11:52:50 04/20/20 20 04/20/2020 CBC w/ auto diff % eosinophils 2.5 % 0.0-7. 0 normal Not Available [facility] [address] [place] [address], [address], 04/20/2020 11:52:50 04/20/20 20 04/20/2020 CBC w/ auto diff % basophils 0.9 % 0.0-3. 0 normal Not Available [facility] [address] [place] [address], [address], 04/20/2020 11:52:50 04/20/20 20 04/20/2020 CBC w/ auto diff nucleated red cells 0.1 % 0.0-0. 9 normal Not Available [facility] [address] [place] [address], [address], 04/20/2020 11:52:50 04/20/20 20 04/20/2020 CBC w/ auto diff nucleated RBCs, absolute 0.00 K/uL not estab. normal Not Available [facility] [address] [place] [address], [address], 04/20/2020 11:52:50 04/20/20 20 04/20/2020 CMP, serum or plasm a glucose 109 mg/dL 74-100 high Not Available [facility] [address] [place] [address], [address], 04/20/2020 12:16:18 04/20/20 20 04/20/2020 CMP, serum or plasm a blood urea nitrogen 24 mg/dL 6-20 high Not Available [facility] [address] [place] [address], [address], 04/20/2020 12:16:18 04/20/20 20 04/20/2020 CMP, serum or plasm a creatinine 1.07 mg/dL 0.50-0 .95 high Not Available [facility] [address] [place] [address], [address], 04/20/2020 12:16:18 04/20/20 20 04/20/2020 CMP, serum or plasm a BUN/creatini ne ratio 22 (calc ) 10-20 high Not Available [facility] [address] [place] [address], [address], 04/20/2020 12:16:18 04/20/20 20 04/20/2020 CMP, serum or plasm a sodium 143 mmol/ L 136-14 5 normal Not Available [facility] [address] [place] [address], [address], 04/20/2020 12:16:18 04/20/20 20 04/20/2020 CMP, serum or plasm a potassium 4.3 mmol/ L 3.4-5. 0 normal Not Available [facility] [address] [place] [address], [address], 04/20/2020 12:16:18 04/20/20 20 04/20/2020 CMP, serum or plasm a chloride 107 mmol/ L 98-107 normal Not Available [facility] [address] [place] [address], [address], 04/20/2020 12:16:18 04/20/20 20 04/20/2020 CMP, serum or plasm a carbon dioxide 24 mmol/ L 20-32 normal Not Available [facility] [address] [place] [address], [address], 04/20/2020 12:16:18 04/20/20 20 04/20/2020 CMP, serum or plasm a anion gap 12 (calc ) 7-25 normal Not Available [facility] [address] [place] [address], [address], 04/20/2020 12:16:18 04/20/20 20 04/20/2020 CMP, serum or plasm a calcium 9.7 mg/dL 8.6-10 .2 normal Not Available [facility] [address] [place] [address], [address], 04/20/2020 12:16:18 04/20/20 20 04/20/2020 CMP, serum or plasm a total protein 7.0 g/dL 6.4-8. 3 normal Not Available [facility] [address] [place] [address], [address], 04/20/2020 12:16:18 04/20/20 20 04/20/2020 CMP, serum or plasm a albumin 4.4 g/dL 3.5-5. 2 normal Not Available [facility] [address] [place] [address], [address], 04/20/2020 12:16:18 04/20/20 20 04/20/2020 CMP, serum or plasm a globulin 2.6 g/dL_ (calc ) 1.5-4. 5 normal Not Available [facility] [address] [place] [address], [address], 04/20/2020 12:16:18 04/20/2004/20/2020 CMP, serum or plasm a albumin/glob ulin ratio 1.7 (calc ) 1.1-2. 5 normal Not Available [facility] [address] [place] [address], [address], 04/20/2020 12:16:18 04/20/20 20 04/20/2020 CMP, serum or plasm a bilirubin, total 0.7 mg/dL 0.1-1. 2 normal Not Available [facility] [address] [place] [address], [address], 04/20/2020 12:16:18 04/20/20 20 04/20/2020 CMP, serum or plasm a alkaline phosphatase 71 U/L 35-105 normal Not Available [facility] [address] [place] [address], [address], 04/20/2020 12:16:18 04/20/20 20 04/20/2020 CMP, serum or plasm a AST 26 U/L 0-32 normal Not Available [facility] [address] [place] [address], [address], 04/20/2020 12:16:18 04/20/20 20 04/20/2020 CMP, serum or plasm a ALT 21 U/L 0-33 normal Not Available [facility] [address] [place], [address], 04/20/2020 12:16:18 04/20/20 20 04/20/2020 CMP, serum or plasm a GFR 59 >= 60 abnormal Not Available [facility] [address] [place], [address], 04/20/2020 12:16:18 04/20/20 20 04/20/2020 CMP, serum [...] month s or longe r. Not Available [facility] [address] [place], [address], 04/20/2020 12:16:18 09/11/20 19 09/11/2019 US, abdom en, limit ed [facility] [address] [place] [address] Patien t Name: GINA Carranza Patien t [...] Jason Man MD on 2018 9:[email or web address] [place] [address] Radiology [facility] [address] [place], [address], 09/23/2019 15:38:59 Result Notes None recorded. Procedures Surgical History Date Name Laterality Status Provider Name and Address Organization Details Recorded Time CABG completed Salma Billings [facility] 09/09/2019 09:08:09 Cholecystectomy completed Salma Billings [facility] 09/09/2019 09:08:17 [facility] 09:08:34 Back Surgery completed Salmarik Billings [facility] 09/09/2019 09:08:47 wrist repair completed Salma Billings [facility] 09/09/2019 09:09:41 debridement of leg ulcer completed Salma Billings [facility] 09/09/2019 09:10:18 Imaging Results None recorded. Procedure Notes None recorded. Medical Equipment None Reported. Allergies Allergen ID Allergen Name Allergen Category Reaction Reaction Severity Criticality Documentation Date Start Date Code Code System Note Provider Name and Address Organization Details Recorded Time 445371 Motrin medicatio n itching Not available Not available 09/09/201917668 8 [facility] 09:01:45 [id number] Product containin g penicilli n (product) medicatio n rash Not available Not available 09/09/2019 26372 8001 SNOMED Salma Billings [facility] 9 09:01:54 Medications Name Sig Start Date Stop Date Status Note LastModified by Organization Details LastModified Time Plaquenil 200 mg tablet Take 1 tablet twice a day by oral route. active Not Available Not Available No t Available vitamin [id number] B1 1,000 mcg-100 mg/mL injection solution Take [...] Updated DateTime 04/20/2020 98.6 [degF] Norma Salcido [facility] 0 04/20/2020 12:51:11 Date Recorded Body height Body mass index (BMI) Body weight Heart rate Oxygen saturation Oxygen saturation in Arterial blood by Pulse oximetry Systolic And Diastolic Provider Name and Address Organization Details Last Updated DateTime 0 157.48 cm 40.5 kg/m2 128785. 01 g 63 /min 97 % 97 % 130/72 mm[Hg] [facility] 0 13:02:17 Date Recorded Body weight Body mass index (BMI) Body height Heart rate Oxygen saturation Oxygen saturation in Arterial blood by Pulse oximetry Body temperature Systolic And Diastolic Provider Name and Address Organization Details Last Updated DateTime 9 129625. 08 g 41.2 kg/m2 157.48 cm 65 /min 96 % 96 % 98.9 [degF] 122/62 mm[Hg] [facility] 9 09:19:53 Date Recorded Body height Heart rate Body temperature Body mass index (BMI) Body weight Systolic And Diastolic Provider Name and Address Organization Details Last Updated DateTime 9 157.48 cm 68 /min 99.1 [degF] 41.4 kg/m2 948656. 63 g 136/66 mm[Hg] Yessi King [facility] 9 15:09:42 Social History Question Answer Notes LastModified by Organizat ion Details LastModified Time Tobacco Smoking Status Never Smoker Yessi King [facility] 09/23/2019 15:10:42 How Much Tobacco Do You Chew? None [email or web address] Information not available 09/23/2019 Live Alone Or With Others? Alone [email or web address] Information not available 09/23/2019 Exposure To Smoke No [email or web address] Information not available 09/23/2019 Marital Status [email or web address] Informatio n not available 09/23/2019 What Was The Date Of Your Most Recent Tobacco Screening? 09/23/2019 Information not available 09/23/2019 How Many Children Do You Have? 1 Son 23 Years Ago [email or web address] Information not available 09/23/2019 How Much Tobacco Do You Smoke? No Information not available 04/20/2020 On What Date Was Tobacco Cessation Counseling Provided? 09/23/2019 [email or web address] Information not available 09/23/2019 How Many Years Have You Smoked Tobacco? 0 Information not available 04/20/2020 Sex: Female Functional Status Question Answer Note LastModified by [email or web address] ion Details LastModified Time What is your level of alcohol consumption? None Information not available 09/23/2019 Do you or have you ever used smokeless tobacco? Never used smokeless tobacco [email or web address] Information not available 09/23/2019 What is your occupation? Retired [email or web address] Information not available 09/23/2019 Do you or have you ever used e-cigarettes or vape? Never used electronic cigarettes Information not available 09/23/2019 Mental Status None [...] Response Depression Y Arthritis Y Heart Attack ([place]) Y Heart Disease Y Gynecological HistoryNo gynecological history recorded. Obstetrics History GPAL:G 0 P 0 0 0 0 Past Encounters Encounter ID Performer Location Encounter Start Date Encounter Closed Date Diagnosis/Indication Diagnosis SNOMED-CT Code Diagnosis ICD10 Code Diagnosis Note [id number] JASON WEISS MD CARDIOLOG Y [place] [address] [place] [id number] 04/03/2017 13:10:27 04/03/2017 13:49:50 [id number] JASON WEISS MD CARDIOLOG Y [place] [address] [place] [id number] 09/25/2017 12:53:34 09/25/2017 14:36:54 [id number] JASON WEISS MD CARDIOLOG Y [address] [place],[address] [place], [place] [id number] 04/02/2018 09:28:26 04/02/2018 11:01:03 [id number] JASON WEISS MD CARDIOLOG Y [address] [place],[address] [place], [place] [id number] 10/22/2018 13:48:50 10/22/2018 15:10:00 [id number] JASON WEISS MD CARDIOLOG Y [address] [place] [id number] 02/07/2019 11:09:23 02/07/2019 13:35:19 [id number] JASON WEISS MD CARDIOLOG Y [address] [place], [place] [id number] 05/08/2019 13:19:05 05/08/2019 13:58:46 [id number] FROILAN BAGLEY MD HEM/ONC [facility] [address] [place], [place] [id number] 09/09/2019 08:55:56 09/09/2019 09:56:44 Rheumatoid arthritis 42475542 M06.[address] Tom. Pt is on plaquenil and cevimeline . Gout 76382526 M10.9 Pt has begun colchicine . Body mass index 30+ - obesity 636659066 Z68.41 Encourage exercise and weight loss. Leukopenia 36949443 D72. 819 Differenti al includes for this and thrombocyt openia include vitamin deficiency , Felty's syndrome as well as LGL. Also, worrisome for another autoimmune such s lupus. Medication effect including colchicine and plaquenil. We will obtain here flow cytometry, CBC, LDH, JAYDEN, splenic US, B12/folate . Thrombocyt openic disorder 051141106 D69.6 As above. [id number] FROILAN BAGLEY MD HEM/ONC [facility] [address] [place], [place] [id number] 09/23/2019 14:46:58 09/23/2019 15:53:02 Leukopenia 44228370 D72.819 Differenti al includes for this and [...] dilatation most likely secondary to cholecyste ctomy. [id number] JASON WEISS MD CARDIOLOG Y [address] [place] [id number] 10/24/2019 12:38:41 10/24/2019 13:57:59 [id number] FROILAN BAGLEY MD HEM/ONC [facility] [address] [place] [id number] 04/20/2020 12:49:16 04/20/2020 13:27:21 Leukopenia 26764125 D72.819 Labs today are normal. This has [...] dilatation most likely secondary to cholecyste ctomy. [id number] JASON WEISS MD CARDIOLOG Y [address] [place] [id number] 05/04/2020 13:42:38 05/04/2020 14:45:16 [id number] JASON WEISS MD CARDIOLOG Y [address] [place], [place] [id number] 11/23/2020 14:04:41 11/23/2020 15:54:54 [id number] JASON WEISS MD CARDIOLOG Y [address] [place] [id number] 04/22/2021 10:16:00 04/22/2021 10:42:04 [id number] YELENA GARCIA PA-C CARDIOLOG Y [address] ,[address] [place] [address] 10/20/2021 13:30:08 10/20/2021 15:19:47 [id number] YELENA GARCIA PA-C CARDIOLOG Y [address] ,[address] [place] [address] 04/25/2022 13:10:58 04/25/2022 14:17:13 [id number] YELENA GARCIA PA-C CARDIOLOG Y [address] ,[address] [place] [address] 10/25/2022 13:07:16 10/25/2022 14:19:06 [id number] MIGUEL SALAZAR MD CARDIOLOG Y SB [address] [place] [address] 1 04/19/2023 08:57:28 04/19/2023 12:59:26 [id number] MIGUEL SALAZAR MD CARDIOLOG Y SB [address] [place] [address] 1 10/23/2023 13:19:59 10/23/2023 15:24:43 [id number] MIGUEL SALAZAR MD CARDIOLOG Y SB [address] [place] [address] 1 02/28/2024 14:13:45 02/28/2024 15:43:14 [id number] MIGUEL SALAZAR MD CARDIOLOG Y SB [address] [place] [address] 1 04/24/2024 13:47:52 05/02/2024 11:17:54 [id number] MIGUEL SALAZAR MD CARDIOLOG Y SB [address] [place] [address] 1 10/29/2024 12:55:01 10/29/2024 14:32:18 Health Concerns Section Related Observation LastModified by Organization Detai ls LastModified Time None Recorded Concern Status LastModified by Organization Details LastModified Time None Recorded Advance Directives Directive None Recorded Payers Insurance Date Sequence Insurance Name Policy Number Policy Gaines Covered Member ID Gaines Member ID Guarantor Name 05/18/2025 2 [place] [id number] Gina Hector [id number] Gina Hector 05/18/2025 1 [place]ICARE) Gina Hector [id number] Gina Hector 10/07/2020 2 [place]PP[place]) [id number] Gina Hector [id number] Gina Hector Notes Date Note Type Note Provider Name and Address Organization Details Recorded Time 9 text/html HPIReported bypatient.Advanced Directives / Bio[employer] AuthorizationsAdvanced Directives? YES Dischargedischarge disposition stable Distress ScreeningHas the distress screening been completed in the last 45 days? YES; Distress level 5 Practical Problemsno practical problems Family Problemsno family problems Emotional Problemsdepression; anxiety Spiritual/Religiousspiritua l/baptist problems? NO Physical Problemsno physical problems Nutrition [...] ROS per intake note. FROILAN BAGLEY MD [address] [place] [address], [phone], [facility] 09/09/2019 09:47:03 9 text/html HPIReported bypatient.Distress ScreeningHas the distress screening been completed in the last 45 days? YES; Distress level 3 Practical Problemshousing stress;financial/insurance stress;transportation stress Family Problemsfamily health issue Emotional Problemsdepression;nervousn ess;worry Spiritual/Religiousspiritua l/baptist problems? NO Physical Problemsdiarrhea;eating/ing estion problem;fatigue Nutrition [...] polyps, diverticulosis per pt. FROILAN BAGLEY MD [address] [place] [address], [phone], [facility] 09/23/2019 15:46:20 0 text/html HPIReported bypatient.Advanced Directives / Bio[employer] AuthorizationsAdvanced Directives? NO Dischargedischarge disposition stable Distress ScreeningHas the distress screening been completed in the last 45 days? YES; Distress level 3 Practical Problemsno practical problems;transportation stress Family Problemsno family problems Emotional Problemsdepression;fears;ne rvousness;sadness;worry Spiritual/Religiousspiritua l/baptist problems? NO Physical Problemseating/ingestion problem;fatigue;feeling swollen Nutrition [...] care of Dr. Perez. FROILAN BAGLEY MD [address] [place] [address], [phone], [facility] 04/20/2020 13:19:58 OBGyn Episode No OBEpisode recorded.
--- OUTSIDE RECORDS SUMMARY | 2025-05-26 07:59 | XMS_ITS | Encounter Summary ---
Author Organization [employer] ([place], [place], [place], [place]) Address [address] [place] [address] Care Team Providers Care Pastry Assistant Name Role Phone José Miguel Verde MD Primary Care Provider + [phone] Encounter Details Date Type Department Care Team (Late st Contact Info) Description 01/08/2019 Transcribed Document [facility] [place] Family Medicine [address] [place] [address] ProviderNitin MD [address] [place] [address] Social History Tobacco Use Types [...] Nitin Bueno MD - 01/08/2019 11:24 PM PHOTOGRAPHER MODEL [address] [place] [address] Patient Information Name: GINA HECTOR Age: [...] please contact the Patient Resource Center at [phone]. Please follow up with Lester Peace. With: Address: When: MELVIN RASCON [address] [place] [address], [address] [place] [phone] Business (1) Within 2 to 3 days [...] you start to feel better. ??? Take loio-ycw-pylwfeq and prescription medicines only as told by [...] 04/17/2009 Document Revised: 07/24/2017 Document Reviewed: 07/24/2017 [email or web address] Interactive Patient Education ? 2017 [employer] Food Choices for Gastroesophageal Reflux Disease, [...] VegetablesTomatoes. Tomato juice. Tomato and spaghetti sauce. Eden peppers. Onion and garlic. Horseradish. FruitsOranges, grapefruit, [...] spearmint. Fats and OilsHigh-fat foods. This includes Chinese fries and potato chips. OtherVinegar. Strong spices. [...] 04/30/2013 Document Revised: 04/06/2017 Document Reviewed: 09/03/2014 [employer] Interactive Patient Education ? 2017 [employer] Gastroesophageal Reflux Disease, Adult Introduction Normally, [...] vinegar, hot sauces, and BBQ sauce. ? [place] Sm[place] fruit juices and citrus fruits, such as oranges, olga, and limes. ? Tomato-based foods, such as red sauce, chili, salsa, and pizza with red sauce. ? Fried and fatty foods, such as donuts, equatorial guinean fries, potato chips, and high-fat dressings. ? [...] any changes in your symptoms. ??? Take gbsc-nrr-qddxmop and prescription medicines only as told by [...] range between ( 0.0 and 7.0 ) [place] #: 0.53 K/uL -- Normal range between ( 0.16 and 1.00 ) Eos #: 0.03 x10(3)/uL -- Normal range between ( 0.00 and 0.80 ) [place] %: 9.2 % -- Normal range between [...] verify that HECTORGINA Carranza was seen at [facility] Emergency [facility] on ,01/08/2019 23:24:10. This is [...] along the way. As a healthcare provider, [facility] recommends that you stop smoking. Assistance with quitting is available by contacting 6-683-OSEU-NOW. This is a free resource providing counseling, [...] Electronic Communications Privacy Act 18 U.S.C. ???Sections 1456-9811,?? and contain information intended for the specified [...] sure to sign up for the My [facility] patient portal, which gives you 05/06 access to your medical information ??? including these discharge instructions ??? using your computer, smartphone, or tablet. Just go to AudioName to get started. Questions? Call . Acknowledgment [...] Instructions: Emergency Physician: Electronically signed by Drew, [facility] Conversion Retail Pharmacy Merchandiser Cerner at 02/26/2023 11:12 PM CDT documented in this encounter Plan of Treatment Not on file documented as of this encounter Visit Diagnoses Not on filedocumented in this encounter Care Teams Pastry Assistant Relationship Specialty Start Date End Date José Miguel Verde MD [address] [place] [address] PCP - General Adolescent Medicine 03/07/23 documented as of this encounter
--- OUTSIDE RECORDS SUMMARY | 2025-05-26 07:59 | XMS_ITS | Encounter Summary ---
Author Organization [employer] ([place], [place], [place], [place]) Address [address] [place] [address] Care Team Providers Care Billing And Accounting Staff Assistant Name Role Phone José Miguel Verde MD Primary Care Provider + [phone] Encounter Details Date Type Department Care Team (Late st Contact Info) Description 07/15/2020 Transcribed Document [facility] [place] [address] [place] [address] ProviderNitin MD [address] [place] [address] Social History Tobacco Use Types [...] Nitin ProviderMD - 07/15/2020 4:16 PM CDT [facility] [place] [address] GINA HECTOR :1945 Visit Time:07/15/2020 Your [...] Within 2 to 3 days Where: [address] Business (1) Allergies ibuprofen (Itching, Itching) [...] range between ( 0.0 and 7.0 ) [place] #: 0.55 K/uL -- Normal range between ( 0.16 and 1.00 ) Eos #: 0.06 x10(3)/uL -- Normal range between ( 0.00 and 0.80 ) [place] %: 9.3 % -- Normal range between [...] safe for you. General instructions ??? Take bhzw-gui-bzpdrbd and prescription medicines only as told by [...] 10/30/2006 Document Revised: 05/02/2019 Document Reviewed: 05/02/2019 [employer] Patient Education ?? 2020 [employer]. Nonspecific Chest Pain, Adult Chest pain can [...] these instructions at home: Medicines ??? Take uyzh-kov-hplutnn and prescription medicines only as told by [...] 08/09/2006 Document Revised: 05/02/2019 Document Reviewed: 05/02/2019 [employer] Patient Education ?? 2020 [employer] Emergency Awareness and Preventative Care STROKE [...] Assistance with quitting is available by contacting 3-362-KCEI-NOW. This is a free resource providing counseling, [...] was given the opportunity to ask questions. Patient/Radiator Tester Name: Patient/Radiator Tester Signature: Relationship to Patient: Clinician/Hospital Radiator Tester Signature: Please Provide a Telephone Number Where You Can Be Reached: Is it Permissible To Leave a Message? Date: Electronically signed by Drew [facility] Conversion Hazardous Waste Material Technician Jessica at 02/26/2023 11:01 PM CDT documented in this encounter Plan of Treatment Not on file documented as of this encounter Visit Diagnoses Not on filedocumented in this encounter Care Teams Billing And Accounting Staff Assistant Relationship Specialty Start Date End Date José Miguel Verde MD [address] [place] [address] PCP - General Adolescent Medicine 03/07/23 documented as of this encounter
--- OUTSIDE RECORDS SUMMARY | 2025-05-26 07:59 | XMS_ITS | Encounter Summary ---
Author Organization [employer] ([place], [place], [place], [place]) Address [address] [place] [address] Care Team Providers Care Geodetic Advisor Name Role Phone José Miguel Verde MD Primary Care Provider + [phone] Encounter Details Date Type Department Care Team (Late st Contact Info) Description 07/15/[address] [facility] [place] Family Medicine [address] [place] [address] ProviderNitin MD [address], [place] [id number] Social History Tobacco Use Types Packs/Day Years [...] Nitin ProviderMD - 07/15/2020 11:47 AM CDT [place] Suicide Severity Rating Scale (C-SSRS) Entered On: 07/15/2020 12:21 EDT Performed On: 07/15/2020 12:20 EDT by IVORY APPIAH RN [place] Suicide Severity Rating Scale (C-SSRS) CSSRS Past [...] on filedocumented in this encounter Care Teams Geodetic Advisor Relationship Specialty Start Date End Date José Miguel Verde MD [address] [place] [address] PCP - General Adolescent Medicine 03/07/23 documented as of this encounter
--- OUTSIDE RECORDS SUMMARY | 2025-05-26 07:59 | XMS_ITS | Encounter Summary ---
Author Organization [employer] ([place], [place], [place], [place]) Address [address] [place] [address] Care Team Providers Care Mortgage Professional Name Role Phone José Miguel Verde MD Primary Care Provider + [phone] Encounter Details Date Type Department Care Team (Late st Contact Info) Description 07/15/2020 Transcribed Document [facility] [place] Family Medicine [address] [place] [address] ProviderNitin MD [address] [place] [address] Social History Tobacco Use [...] on filedocumented in this encounter Care Teams Mortgage Professional Relationship Specialty Start Date End Date José Miguel Verde MD [address] [place] [address] PCP - General Adolescent Medicine 03/07/23 documented as of this encounter
--- OUTSIDE RECORDS SUMMARY | 2025-05-26 07:59 | XMS_ITS | Encounter Summary ---
Author Organization [employer] ([place], [place], [place], [place]) Address [address] [place] [address] Care Team Providers Care Trade Mark Examiner Name Role Phone José Miguel Verde MD Primary Care Provider + [phone] Encounter Details Date Type Department Care Team (Late st Contact Info) Description 07/15/2020 Transcribed Document [facility] [place] Medicine [address] [place] [address] ProviderNitin MD [address] [place], [place] [id number] Social History Tobacco Use Types Packs/Day Years [...] Communication Barrier : None Primary Language : Pap[place] Any Spiritual/Cultural Needs or Requests : [...] - 07/15/2020 12:20 EDT Electronically signed by [facility] Conversion Lime Sludge Mixer Cerner at 02/26/2023 11:14 PM CDT documented in this encounter Plan of Treatment Not on file documented as of this encounter Visit Diagnoses Not on filedocumented in this encounter Care Teams Trade Mark Examiner Relationship Specialty Start Date End Date José Miguel Verde MD [address] [place] [address] PCP - General Adolescent Medicine 03/07/23 documented as of this encounter
--- OUTSIDE RECORDS SUMMARY | 2025-05-26 07:59 | XMS_ITS | Encounter Summary ---
Author Organization [employer] ([place], [place], [place], [place]) Address [address] [place] [address] Care Team Providers Care Proof Technician Helper Name Role Phone José Miguel Verde MD Primary Care Provider + [phone] Encounter Details Date Type Department Care Team (Late st Contact Info) Description 01/08/2019 Transcribed Document [facility] [place] [address] [place] [address] ProviderNitin MD [address], [place] [id number] Social History Tobacco Use Types Packs/Day Years [...] - Nitin ProviderMD - 01/08/2019 6:41 PM TEAROOM HOST ED Triage Entered On: 01/08/2019 18:57 EST Performed On: 01/08/2019 18:47 EST by Catherine Pugh, COAL EQUIPMENT OPERATOR Triage Across the Room Triage Date/Time : 01/08/2019 18:47 EST Chief Complaint : Pt presents to the ER with chest pain that started Monday. Pain was left sided that radiates across chest. Burning in nature. Slight nausea noted. Histroy of triple bypass. Dr. preciado child psychologist. Catherine Pugh, RN - 01/08/2019 18:47 EST DCP GENERIC CODE Tracking Acuity : 3 - Urgent Tracking Group [facility] Catherine Pugh RN - 01/08/2019 [...] PNED ; Probability: 0 ; Diagnosis Code: [id number] ED Height and Weight Height Source : Stated Height Entry Format : [place] Height, Feet : 5 ft(Converted to: 152 cm, 60 Inch) Height, Inches : 2 Inch(Converted to: 0 ft 2 Inch, 5.08 cm) Clinical Height : 157.48 cm Weight Source, ED : Critical estimated dosing weight Weight Entry Format : [place] Weight, Pounds : 230 lb Clinical Dosing Weight : 104.55 kg Body Surface Area (BSA) : 2.03 m2 Body Mass Index : 42.2 kg/m2 (>HHI) [place] Body Weight (IBW) : 49.73 kg Catherine Pugh RN - 01/08/2019 18:47 EST Electronically signed by Drew [facility] Conversion Livestock Dealer Cerner at 02/26/2023 11:09 PM CDT documented in this encounter Plan of Treatment Not on file documented as of this encounter Visit Diagnoses Not on filedocumented in this encounter Care Teams Proof Technician Helper Relationship Specialty Start Date End Date José Miguel Verde MD [address] [place] [address] PCP - General Adolescent Medicine 03/07/23 documented as of this encounter
--- OUTSIDE RECORDS SUMMARY | 2025-05-26 07:59 | XMS_ITS | Encounter Summary ---
Author Organization [employer] ([place], [place], [place], [place]) Address [address] [place] [address] Care Team Providers Care Bilingual Inside Sales Representative Name Role Phone José Miguel Verde MD Primary Care Provider + [phone] Encounter Details Date Type Department Care Team (Late st Contact Info) Description 01/08/[address] [facility] [place] Family Medicine [address] [place] [address] ProviderNitin MD [address], [place] [id number] Social History Tobacco Use Types Packs/Day Years [...] - Nitin ProviderMD - 01/08/2019 11:23 PM TRUCKING SUPERVISOR ED Discharge Entered On: 01/08/2019 23:23 EST Performed On: 01/08/2019 23:23 EST by Nancy Lopez RN Discharge Process Patient Disposition : Discharge Personal Belongings With Patient : Yes Patient Education Completed : Yes Teaching Evaluation : Verbalizes understanding IV Discontinued : Yes Nursing Documentation Completed : Yes Nancy Lpoez RN - 01/08/2019 23:23 EST ED Discharge Discharge To : Home with ambulatory/outpatient follow-up Mode Of Departure : Ambulatory Accompanied By : Friend Discharge Instructions Reviewed With, Opportunity For Questions Given : Patient Prescriptions Given to Patient : No Medications Given to Patient : No Nancy Lopez, RN - 01/08/2019 23:23 EST Electronically signed by Drew, [facility] Conversion Automatic Shirring Machine Operator Cerner at 02/26/2023 11:09 PM CDT documented in this encounter Plan of Treatment Not on file documented as of this encounter Visit Diagnoses Not on filedocumented in this encounter Care Teams Bilingual Inside Sales Representative Relationship Specialty Start Date End Date José Miguel Verde MD [address] [place] [address] PCP - General Adolescent Medicine 03/07/23 documented as of this encounter
--- OUTSIDE RECORDS SUMMARY | 2025-05-26 07:59 | XMS_ITS | Referral Summary ---
Author Organization [employer] ([place], [place], [place], [place]) Address [address] [place] [address] Care Team Providers Care Front Office Assistant Name Role Phone José Miguel Verde MD Primary Care Provider + [phone] Allergies Active Allergy Reactions Criticality Noted Date [...] by mouth in the morning. Active pancrelipase, Jgu-Giiw-Bscz, (CREON) 36,000-114,000 - 180,000 unit CpDR capsule [...] Date Hamilton rded Speak language other than [place] at home Not on file 12/01/2023 Want [...] Advance Directives For more information, please contact: [phone] * Full Code (Latest Code Status on File) Date Activated Date Inactivated Comments 03/10/2023 5:00 PM 03/11/2023 12:05 PM * Full Code Date Activated Date Inactivated Comments 03/07/2023 2:51 PM 03/10/2023 5:00 PM Care Teams Front Office Assistant Relationship Specialty Start Date End Date José Miguel Verde MD [address] [place] [address] PCP - General Adolescent Medicine 03/07/23
--- OUTSIDE RECORDS SUMMARY | 2025-05-26 07:59 | XMS_ITS | Clinical Summary ---
Author Organization [employer] ([place], [place], [place], [place]) Address [address] [place] [address] Care Team Providers Care Overlock Waistline Joiner Name Role Phone José Miguel Verde MD Primary Care Provider + [phone] Allergies Active Allergy Reactions Criticality Noted Date [...] by mouth in the morning. Active pancrelipase, Qpg-Kmbd-Wfus, (CREON) 36,000-114,000 - 180,000 unit CpDR capsule [...] Date Hamilton rded Speak language other than Congolese at home Not on file 12/01/2023 Want [...] 01/04/2018, 2016 Insurance MEDICARE PART [place] [address] SUPP Advance Directives For more information, please contact: [phone] * Full Code (Latest Code Status on File) Date Activated Date Inactivated Comments 03/10/2023 5:00 PM 03/11/2023 12:05 PM * Full Code Date Activated Date Inactivated Comments 03/07/2023 2:51 PM 03/10/2023 5:00 PM Care Teams Overlock Waistline Joiner Relationship Specialty Start Date End Date José Miguel Verde MD [address] [place] [address] PCP - General Adolescent Medicine 03/07/23
--- OUTSIDE RECORDS SUMMARY | 2025-05-26 07:59 | XMS_ITS | Encounter Summary ---
Author Organization [employer] ([place], [place], [place], [place]) Address [address] [place] [address] Care Team Providers Care Server Administrator Name Role Phone José Mgiuel Verde MD Primary Care Provider + [phone] Encounter Details Date Type Department Care Team (Late st Contact Info) Description 01/08/2019 Transcribed Document [facility] [place] [address] [place] [address] ProviderNitin MD [address], [place] [id number] Social History Tobacco Use Types Packs/Day Years [...] - Nitin ProviderMD - 01/08/2019 11:24 PM HEAD OPERATOR SULFIDE [address] [place] [address] PERSON INFORMATION Name GINA HECTOR Age 73 Years 1945 Sex Female Language Japanese PCP MELVIN RASCON MD-INT Marital Status Med Service Emergency Medicine Acct# Arrival 01/08/2019 18:41:00 Visit Reason Chest pain; CHEST PAIN/LEFT ARM PAIN Acuity 3 - Urgent LOS 000 04:43 Depart Date: 01/08/19 11:24 PM Address: [address] [facility] [address] [facility] [address] Comment: PROVIDER INFORMATION Provider Role Assigned Unassigned BEAR KING ARNP ED Physician 01/08/2019 18:50:05 Roc Saenz, RESPIRATORY THERAPIST Nurse 01/08/2019 18:59:17 KEYUR BROWN MD ED [...] PATIENT EDUCATION INFORMATION Instructions: Nonspecific Chest Pain, Lckq-cd-Rqte; Food Choices for Gastroesophageal Reflux Disease, Adult, Xnuc-gz-Vnaj; Gastroesophageal Reflux Disease, Adult, Yowr-mo-Uaml Follow up: With: Address: When: Return to Emergency Department Within As needed Comments: Follow-up as instructed Return if condition worsens With: Address: When: [facility] Within 2 to 3 days Comments: For further assistance with your Primary Care Physician please contact the Patient Resource Center at [phone]. Please follow up with Lester Peace. With: Address: When: MELVIN RASCON [address] [facility], [address] [place] [phone] Business (1) Within 2 to 3 days Comment: documented in this encounter Plan of Treatment Not on file documented as of this encounter Visit Diagnoses Not on filedocumented in this encounter Care Teams Server Administrator Relationship Specialty Start Date End Date José Miguel Verde MD [address] [place] [address] PCP - General Adolescent Medicine 03/07/23 documented as of this encounter
--- OUTSIDE RECORDS SUMMARY | 2025-05-26 07:59 | XMS_ITS | Encounter Summary ---
Author Organization [employer] ([place], [place], [place], [place]) Address [address] [place] [address] Care Team Providers Care Steak Tenderizer Machine Name Role Phone José Miguel Verde MD Primary Care Provider + [phone] Encounter Details Date Type Department Care Team (Late st Contact Info) Description 07/15/2020 Transcribed Document [facility] [place] [address] [place] [address] ProviderNitin MD [address], [place] [id number] Social History Tobacco Use Types Packs/Day Years [...] 07/15/2020 16:41 EDT Electronically signed by Drew [facility] Conversion Signing Teacher Cerner at 02/26/2023 11:11 PM CDT documented in this encounter Plan of Treatment Not on file documented as of this encounter Visit Diagnoses Not on filedocumented in this encounter Care Teams Steak Tenderizer Machine Relationship Specialty Start Date End Date José Miguel Verde MD [address] [place] [address] PCP - General Adolescent Medicine 03/07/23 documented as of this encounter
--- OUTSIDE RECORDS SUMMARY | 2025-05-26 07:59 | XMS_ITS | Encounter Summary ---
Author Organization [employer] ([place], [place], [place], [place]) Address [address] [place] [address] Care Team Providers Care Auto Inspector Name Role Phone José Miguel Verde MD Primary Care Provider + [phone] Encounter Details Date Type Department Care Team (Late st Contact Info) Description 01/08/2019 Transcribed Document [facility] [place] Family Medicine [address] [place] [address] ProviderNitin MD [address], [place] [id number] Social History Tobacco Use Types Packs/Day Years [...] - Nitin ProviderMD - 01/08/2019 6:41 PM NUTRITION AND DIETETICS INSTRUCTOR ED Assessment Entered On: 01/08/2019 19:12 EST Performed On: 01/08/2019 19:11 EST by Roc Saenz RN ED Quick Look Assessment Level of Consciousness : Alert, Awake Affect/Behavior : Appropriate, Calm Orientation : Oriented x 4 Roc Saenz RN - 01/08/2019 19:11 EST ED General-Functional Assess Information Obtained From : Patient Communication Barrier : None Primary Language : [place] Island[place] Any Spiritual/Cultural Needs or Requests : No [...] Saenz RN - 01/08/2019 19:11 EST] ) oRc Saenz RN - 01/08/2019 19:11 EST Respiratory [...] 01/08/2019 19:11 EST Electronically signed by [facility] Conversion Associate Manager Cerner at 02/26/2023 11:00 PM CDT documented in this encounter Plan of Treatment Not on file documented as of this encounter Visit Diagnoses Not on filedocumented in this encounter Care Teams Auto Inspector Relationship Specialty Start Date End Date José Miguel Verde MD [address] [place] [address] PCP - General Adolescent Medicine 03/07/23 documented as of this encounter
--- OUTSIDE RECORDS SUMMARY | 2025-05-26 07:59 | XMS_ITS | Encounter Summary ---
Author Organization [employer] ([place], [place], [place], [place]) Address [address] [place] [address] Care Team Providers Care Hook Loader Name Role Phone José Miguel Verde MD Primary Care Provider + [phone] Encounter Details Date Type Department Care Team (Late st Contact Info) Description 07/15/2020 Transcribed Document [facility] [place] Family Medicine [address] [place] [address] ProviderNitin MD [address] [place] [address] Social History Tobacco Use Types [...] Bueno MD - 07/15/2020 4:34 PM CDT [facility] [address] GINA HECTOR [...] appointment Where: [address] [place] [address]- Business (1) Follow Up with Follow up with primary care provider When Within 1 to 2 days Comments Take home medications as directed, follow with PCP, return to emergency Department with new or worsening symptoms Follow Up with MELVIN RASCON When Within 2 to 3 days Where: [address] [facility] [address] [place] [address]- Business (1) Allergies ibuprofen (Itching, Itching) [...] range between ( 0.0 and 7.0 ) [place] #: 0.55 K/uL -- Normal range between ( 0.16 and 1.00 ) Eos #: 0.06 x10(3)/uL -- Normal range between ( 0.00 and 0.80 ) [place] %: 9.3 % -- Normal range between [...] safe for you. General instructions ??? Take ppmu-rgz-orqjcgv and prescription medicines only as told by [...] 10/30/2006 Document Revised: 05/02/2019 Document Reviewed: 05/02/2019 [employer] Patient Education ?? 2020 [employer]. Nonspecific Chest Pain, Adult Chest pain can [...] these instructions at home: Medicines ??? Take cvjv-htq-revbvxj and prescription medicines only as told by [...] 08/09/2006 Document Revised: 05/02/2019 Document Reviewed: 05/02/2019 [employer] Patient Education ?? 2020 [employer] Emergency Awareness and Preventative Care STROKE [...] Assistance with quitting is available by contacting 5-144-VSXI-NOW. This is a free resource providing counseling, [...] was given the opportunity to ask questions. Patient/Stratigraphy Teacher Name: Patient/Stratigraphy Teacher Signature: Relationship to Patient: Clinician/Hospital Stratigraphy Teacher Signature: Please Provide a Telephone Number Where You Can Be Reached: Is it Permissible To Leave a Message? Date: Electronically signed by [facility] Conversion Business Attorney Cerner at 02/26/2023 11:06 PM CDT documented in this encounter Plan of Treatment Not on file documented as of this encounter Visit Diagnoses Not on filedocumented in this encounter Care Teams Hook Loader Relationship Specialty Start Date End Date José Miguel Verde MD [address] [place] [address] PCP - General Adolescent Medicine 03/07/23 documented as of this encounter
--- OUTSIDE RECORDS SUMMARY | 2025-05-26 07:59 | XMS_ITS | Encounter Summary ---
Author Organization [employer] ([place], [place], [place], [place]) Address [address] [place] [address] Care Team Providers Care Furnace Operator Oil Or Gas Name Role Phone José Miguel Verde MD Primary Care Provider + [phone] Encounter Details Date Type Department Care Team (Late st Contact Info) Description 01/09/2019 Transcribed Document [facility] [place] [address] [place] [address] ProviderNitin MD [address] [id number] Social History Tobacco Use Types Packs/Day Years [...] - Historical ProviderMD - 01/09/2019 8:32 AM SKEINER CR Chest 1 Vw Portable Ordered: 01/08/2019 Modified Reason for Exam: chest pain 01/09/2019 07:59 01/09/2019 08:32 (ЕЛЕНА LINDSEY) No further action required documented in this encounter Plan of Treatment Not on file documented as of this encounter Visit Diagnoses Not on filedocumented in this encounter Care Teams Furnace Operator Oil Or Gas Relationship Specialty Start Date End Date José Miguel Verde MD [address] [place] [address] PCP - General Adolescent Medicine 03/07/23 documented as of this encounter
--- OUTSIDE RECORDS SUMMARY | 2025-05-26 07:59 | XMS_ITS | Encounter Summary ---
Author Organization [employer] ([place], [place], [place], [place]) Address [address] [place] [address] Care Team Providers Care Preventive Maintenance Engineer Name Role Phone José Miguel Verde MD Primary Care Provider + [phone] Encounter Details Date Type Department Care Team (Late st Contact Info) Description 07/15/2020 Transcribed Document [facility] [place] Family Medicine [address] [place] [address] ProviderNitin MD [address] [place] [address] Social History Tobacco Use Types [...] Source Stated Height Entry Format Beryl Height/Length, FAROESE (ft) 5 ft Height/Length FAROESE 2 Inch CLINICALHEIGHT 157.48 cm Vaughn Body Weight 49.73 kg Weight Source, ED Critical estimated dosing weight Weight Entry Format Baxter Weight Guamanian lb 222 lb CLINICALWEIGHT 100.91 kg Body [...] Triage: ED C-SSRS: ED Clinical Reconciliation: ED metal pourer: EKG: Extra Blue Tube: Extra Gold Tube: Troponin I Ultra: Troponin I Ultra: . operations and intelligence assistant: Initial EKG shows normal sinus rhythm with [...] % LOW Lymph # 0.97 x10(3)/uL LOW [place] % 9.3 % HI [place] # 0.55 K/uL Eos % 1.0 % Eos # 0.06 x10(3)/uL Baso % 0.5 % Baso # 0.03 x10(3)/uL Slide Review No IG# 0.02 x10(3)/uL IG% 0.30 % . Radiology results: Radiology Results (Last 48 hours) [id number] -- 07/15/2020 11:47 CR Chest 1 Vw [...] on filedocumented in this encounter Care Teams Preventive Maintenance Engineer Relationship Specialty Start Date End Date José Miguel Verde MD [address] [place] [address] PCP - General Adolescent Medicine 03/07/23 documented as of this encounter
--- OUTSIDE RECORDS SUMMARY | 2025-05-26 07:59 | XMS_ITS | Encounter Summary ---
Author Organization [employer] ([place], [place], [place], [place]) Address [address] [place] [address] Care Team Providers Care Contact Clerk Name Role Phone José Miguel Verde MD Primary Care Provider + [phone] Encounter Details Date Type Department Care Team (Late st Contact Info) Description 01/08/2019 Transcribed Document [facility] [place] [address] [place] [address] ProviderNitin MD [address] [place] [address] Social History Tobacco Use Types [...] - Nitin ProviderMD - 01/08/2019 11:21 PM SUPERVISOR LABOR GANG Electronically signed by [facility] Conversion Software Support Representative Jessica at 02/26/2023 11:12 PM CDT documented in this encounter Plan of Treatment Not on file documented as of this encounter Visit Diagnoses Not on filedocumented in this encounter Care Teams Contact Clerk Relationship Specialty Start Date End Date José Miguel Verde MD [address] [place] [id number] PCP - General Adolescent Medicine 03/07/23 documented as of this encounter
--- NOTE | 2025-05-26 08:17 | XR_ITS ---
FINAL REPORT TECHNIQUE: Single view chest CLINICAL HISTORY: chest pain, soa COMPARISON: 05/17/2025 FINDINGS: A single view of the chest was obtained. The heart and mediastinum are within normal limits. The lungs are clear. There is no pneumothorax. IMPRESSION: No acute cardiopulmonary process. Reviewed, Interpreted and Dictated by Berhane Ferris MD Transcribed by Ely Condon Authenticated and [facility]
[2025-05-26 08:34] LABS: Hematocrit 35.9 % (37.0-47.0); Hemoglobin 11.8 g/dL (12.2-16.2); Immature Granulocytes % 0.5 %; Mean Corpuscular HGB Conc 32.9 g/dL (31.8-35.4); Mean Corpuscular Hemoglobin 32.2 pg (27.0-31.2); Mean Corpuscular Volume 98.1 fl (81-99); Nucleated Red Blood Cells % 0 %; Platelet Count 153 K/mm3 (142-424); Red Blood Count 3.66 M/mm3 (4.20-5.40); Red Cell Distribution Width-SD 47.8 fL; White Blood Count 4.3 K/mm3 (4.8-10.8)
[2025-05-26 08:45] LABS: Alanine Aminotransferase 21 U/L (12-78); Albumin Level 3.9 g/dl (3.5-5.0); Albumin/Globulin Ratio 1.8 (1.1-1.8); Alkaline Phosphatase 60 U/L (38-126); Anion Gap 15.0 mEq/L (5-15); Aspartate Amino Transferase 30 U/L (14-36); Bilirubin,Total 1.2 mg/dl (0.2-1.3); Blood Urea Nitrogen 17 mg/dl (7-17); Calcium 9.5 mg/dl (8.4-10.2); Carbon Dioxide 27 mmol/L (22.0-30.0); Chloride 103 mmol/L (98-107); Creatinine Clearance Estimated 59 mL/min (50-200); Creatinine,Serum 1.00 mg/dl (0.52-1.04); Estimated Glomerular Filt Rate 54 ml/min (>60); GFR (African American) 65 ML/MIN (>60); Globulin 2.2 g/dL (1.3-3.2); Glucose 111 mg/dl (74-100); Lipase 70 U/L (23-300); Potassium 4.0 mmoL/L (3.5-5.1); Sodium 141 mmol/L (136-145); Total Protein,Serum 6.1 g/dl (6.3-8.2)
[2025-05-26 08:54] LABS: NT Pro Brain Natriuretic Pep. 1140 pg/mL (0-450)
[2025-05-26 08:57] LABS: Troponin I 0.03 ng/ml (0.00-0.034)
[2025-05-26] MEDS: BELLADONNA ALKALOIDS 60 ML ML PO (09:19)
--- NOTE | 2025-05-26 09:49 | PC.NURSE ---
assisted pt back from the restroom
[2025-05-26 11:48] LABS: Troponin I 0.03 ng/ml (0.00-0.034)
== END 2025-05-26 13:01 | disposition home or self-care (01) ==
PROVIDERS: Emergency Provider Student in an Organized Health Care Education/Training Program
DX: R07.9 Chest pain, unspecified (principal); I25.10 Atherosclerotic heart disease of native coronary artery without angina pectoris; I10 Essential (primary) hypertension; E78.5 Hyperlipidemia, unspecified
CPT/HCPCS: 71045; 80053; 83690; 83880; 84484; 85025; 93005; 99284

== ENCOUNTER 2025-06-02 09:28 | Observation (INO) | payer MEDICARE, BC, SELFPAY ==
[2025-06-02] VITALS (18 sets, daily range): BP systolic 91–156; BP diastolic 54–100; PULSE 53–73; RESP 14–20; TEMP 36.6–36.9; O2SAT 95–99; BMI 26.1; BMI 35.2
--- NOTE | 2025-06-02 09:29 | PC.NURSE ---
DR JUARES AT BEDSIDE
--- NOTE | 2025-06-02 09:33 | ECG_ITS ---
APPROVED REPORT Exam: Resting ECG HR:67 bpm ECG Measurements Heart Rate 67 AXES [place] 136 P 53 QRSd 122 QRS 51 QT 419 T 220 QTc 434 Conclusion SINUS RHYTHM WITH OCCASIONAL SUPRAVENTRICULAR PREMATURE COMPLEXES RIGHT BUNDLE BRANCH BLOCK [120+ ms QRS DURATION, UPRIGHT V1, 40+ ms S IN I/aVL/V4/V5/V6] MODERATE T-WAVE ABNORMALITY, CONSIDER LATERAL ISCHEMIA [-0.1+ mV T-WAVE IN I/aVL/V5/V6] MODERATE T-WAVE ABNORMALITY, CONSIDER INFERIOR ISCHEMIA [-0.1+ mV T-WAVE IN II/aVF] ABNORMAL ECG UNCONFIRMED REPORT Normal sinus rhythm. T wave inversions in leads II, 3, aVF as well as precordial leads. No ST elevations or depressions Electronically signed by : KEMAR JUARES, 06/03/2025 07:36:05
--- NOTE | 2025-06-02 09:43 | XR_ITS ---
FINAL REPORT CLINICAL HISTORY: shortness of breath COMPARISON: 05/26/2025 FINDINGS: CHEST, 1 view FINDINGS: No acute pulmonary opacity is present. There is no evidence of effusion or pneumothorax. There is evidence of prior median sternotomy, presumably from CABG. Otherwise, mediastinum is unremarkable. Heart size is normal. IMPRESSION: Unremarkable chest, status post CABG. Reviewed, Interpreted and Dictated by Berhane Ferris MD Transcribed by Ely Condon Authenticated and [facility]
--- NOTE | 2025-06-02 09:45 | HMH.EDGENADL ---
Discharge Plan Disposition Patient Disposition: Admitted Clinical Impressions Clinical Impression: Orthostasis, Light-headedness Discharge ED Provider: Sreekanth Tapia General Adult HPI General Chief complaint: Dizziness Stated complaint: DIZZINESS Time Seen by Provider: 06/02/25 09:28 Mode of Arrival: EMS Source of Information: Patient Description of Symptoms (Recalled from ER Triage Doc. by RN): Pt in by EMS for 2 days of not feeling well, dizziness, and not feeling well. Pt currently denies CP, and SOA. Pt also states she has had some burning in her abdomen but has HX of GERD. Pt takes Plavix. History of Present Illness HPI narrative: Gina Hector is a 79-year-old female with a past medical history of coronary artery disease status post CABG three-vessel over 25 years ago at [facility], recent PCI with stenting on 05/14, hypertension, hyperlipidemia, cholecystectomy, right wrist surgery, right hip replacement who presents to the emergency department via EMS for complaint of dizziness. Patient states that she felt hot yesterday but does not believe she had a fever and spent most of the day in front of a fan. She states that this morning, when she tried to get out of bed, she felt like she was going to pass out so she laid down for another 15 minutes but still felt that way afterward. Then she called 911. She denies any chest pain. She does report that she chronically has intermittent shortness of breath sometimes with exertion. She reports chronic epigastric abdominal pain that is unchanged from baseline. She does report some nausea but no vomiting, diarrhea. She states that she has not been eating well but believes that she has been drinking enough. She has been spending some time outside sitting on her porch. She denies any falls or trauma. Related Data Home Medications ?Medication ?Instructions ?Recorded ?Confirmed alprazolam 0.25 mg tablet 0.25 mg PO TIDP PRN Anxiety 01/06/19 06/02/25 atorvastatin 10 mg tablet (Lipitor) 10 mg PO HS 01/06/19 06/02/25 cevimeline 30 mg capsule 30 mg PO TID 01/06/19 05/19/25 colchicine 0.6 mg tablet 0.6 mg PO DAILY 01/06/19 06/02/25 hydroxychloroquine 200 mg tablet 200 mg PO DAILY 01/06/19 06/02/25 aspirin 81 mg tablet,delayed 81 mg PO DAILY 01/04/20 05/19/25 release atenolol 50 mg tablet 50 mg PO DAILY 01/04/20 06/02/25 cyclosporine 0.05 % eye drops in a 1 drp ophthalmic (eye) DAILY dry 01/04/20 06/02/25 dropperette (Restasis) eyes cyanocobalamin (vitamin B-12) 1,000 mcg IM MONTHLY 08/21/24 06/02/25 1,000 mcg/mL injection solution cholecalciferol (vitamin D3) 125 125 mcg PO DAILY 12/18/24 05/19/25 mcg (5,000 unit) capsule furosemide 20 mg tablet 20 mg PO DAILYP PRN Fluid 12/18/24 06/02/25 vibegron 75 mg tablet (Gemtesa) 75 mg PO DAILY 12/18/24 06/02/25 vwfqnf-agkimegc-dadvixh 1 cap PO NEEDED PRN WITH MEALS 03/26/25 06/02/25 36,000-114,000-180,000 unit AND SNACKS capsule,delay rel (Creon) azelastine 137 mcg-fluticasone 50 1 spray intranasal BID 05/11/25 05/19/25 mcg/spray nasal spray (Dymista) colestipol 1 gram tablet 1 g PO BID 06/02/25 06/02/25 Previous Rx's ?Medication ?Instructions ?Recorded vonoprazan 20 mg tablet (Voquezna) 20 mg PO DAILY #90 tabs 09/23/24 clopidogrel 75 mg tablet 75 mg PO DAILY 30 days #30 tabs 05/14/25 scopolamine base 1 mg over 3 days 1 patch transdermal Q3D PRN nausea 05/15/25 transdermal patch and vomiting #10 ea isosorbide mononitrate 60 mg 60 mg PO DAILY #30 tabs 05/19/25 tablet,extended release 24 hr Allergies Allergy/AdvReac Type Severity Reaction Status Date / Time Penicillins Allergy Intermediate Rash Verified 05/19/25 11:00 ibuprofen (From Motrin) Allergy Mild Rash Verified 05/19/25 11:00 sulfamethoxazole (From Allergy Unknown Verified 05/19/25 11:00 Bactrim) allergy reaction trimethoprim (From Bactrim) Allergy Unknown Verified 05/19/25 11:00 allergy reaction PFSH [facility] Disclaimer: The information contained in this section may have been updated after the patient was seen, as this information can be updated by other users. Medical History (Updated 06/02/25 @ 13:55 by Sreekanth Tapia MD) Anxiety Diverticulitis Pancreatitis Hyperlipidemia Hypertension Rheumatoid arthritis Osteoarthritis Hemorrhoids Heart disease Gout GERD (gastroesophageal reflux disease) Colon polyps Colitis CAD (coronary artery disease) History of blood transfusion Surgical History H/O left wrist surgery History of right hip replacement History of cholecystectomy History of back surgery Hx of CABG H/O right wrist surgery Family History Father Cancer Social History Smoking Status: Never smoker alcohol intake: never substance use type: denies use current occupational status: retired Travel in the last 8 weeks?: None caffeine: Yes Have you lived/traveled outside [place] in past 30 days?: No Contact w/someone who lives/traveled outside US past 30 days?: No Exposure to someone with infectious disease in past 14 days?: No Do you have a fever (greater than 100.4 F or 38 C)?: No Have you tested positive for COVID-19?: No Exposed to someone with COVID-19 in past 14 days?: No Do you have a sore throat?: No Do you have a cough?: No Do you have any weakness?: No Do you have any diarrhea?: No Are you experiencing any unusual bleeding?: No Do you have any muscle aches/pain?: No Do you have any abdominal pain?: No Are you experiencing loss of taste or smell?: No Other Medical History Have you received the Flu Vaccine for this season: No Have you received the Pneumonia Vaccine: Yes ROS Obtained: Yes Systems reviewed as appropriate & no additional complaints except as documented Physical Exam General General appearance: alert and in no apparent distress Head Head exam: atraumatic Eye Eye exam: Present normal appearance ENT ENT exam: Present normal external ear exam Neck Neck exam: Present full ROM Chest Chest inspection: Present symmetric chest wall rise and other (Well-healed midline sternotomy scar) Respiratory Respiratory exam: Present normal lung sounds bilaterally; Absent respiratory distress, wheezes or stridor Cardiovascular Cardiovascular exam: Present regular rate and normal rhythm Abdominal Exam Abdominal exam: Present soft; Absent distention, tenderness or guarding Extremities Exam Extremities exam: Present normal inspection; Absent edema Back Exam Back exam: Present normal inspection Neurological Exam Neurological exam: Present alert and oriented X3 Psychiatric Psychiatric exam: Present normal affect Skin Skin exam: Present warm and dry Medical Decision Making Medical Records Screening: Per USPSTF and CDC recommendations, given the prevalence of disease in our region, it is our hospital?s policy to screen for HIV and viral Hepatitis for all patients aged 18 and over and those with ongoing risk factors. Earl Inquiry Pt receiving controlled substance: No Vital Signs: 06/02/25 09:38 06/02/25 09:43 06/02/25 10:02 Temperature 98.4 F Temperature Source Oral Pulse Rate 67 Pulse Rate [Left] 62 Pulse Rate [Orthostatic Lying] 63 Pulse Rate [Orthostatic Sitting] 65 Pulse Rate [Orthostatic Standing] 67 Respiratory Rate 18 20 Blood Pressure 130/60 Blood Pressure [Orthostatic Lying] 106/62 L Blood Pressure [Orthostatic Sitting] 126/67 Blood Pressure [Orthostatic Standing] 91/73 L Blood Pressure [Right Arm] 113/55 L Blood Pressure Mean 83 Blood Pressure Mean [Right Arm] 74 Blood Pressure Source [Right Arm] Automatic Cuff 02 Sat by Pulse Oximetry 99 97 Oxygen Delivery Method Room Air 06/02/25 10:31 06/02/25 11:01 06/02/25 11:31 Temperature Temperature Source Pulse Rate 65 65 65 Pulse Rate [Left] Pulse Rate [Orthostatic Lying] Pulse Rate [Orthostatic Sitting] Pulse Rate [Orthostatic Standing] Respiratory Rate 18 18 18 Blood Pressure 132/86 107/91 L 131/56 L Blood Pressure [Orthostatic Lying] Blood Pressure [Orthostatic Sitting] Blood Pressure [Orthostatic Standing] Blood Pressure [Right Arm] Blood Pressure Mean 101 93 95 Blood Pressure Mean [Right Arm] Blood Pressure Source [Right Arm] 02 Sat by Pulse Oximetry 98 98 98 Oxygen Delivery Method 06/02/25 12:00 06/02/25 13:14 06/02/25 13:16 Temperature Temperature Source Pulse Rate 73 69 Pulse Rate [Left] Pulse Rate [Orthostatic Lying] Pulse Rate [Orthostatic Sitting] Pulse Rate [Orthostatic Standing] Respiratory Rate 15 20 Blood Pressure 133/62 156/64 H 156/54 H Blood Pressure [Orthostatic Lying] Blood Pressure [Orthostatic Sitting] Blood Pressure [Orthostatic Standing] Blood Pressure [Right Arm] Blood Pressure Mean 85 88 Blood Pressure Mean [Right Arm] Blood Pressure Source [Right Arm] 02 Sat by Pulse Oximetry 96 99 Oxygen Delivery Method 06/02/25 13:31 06/02/25 14:01 Temperature Temperature Source Pulse Rate 67 64 Pulse Rate [Left] Pulse Rate [Orthostatic Lying] Pulse Rate [Orthostatic Sitting] Pulse Rate [Orthostatic Standing] Respiratory Rate 18 20 Blood Pressure 131/62 135/59 L Blood Pressure [Orthostatic Lying] Blood Pressure [Orthostatic Sitting] Blood Pressure [Orthostatic Standing] Blood Pressure [Right Arm] Blood Pressure Mean 96 84 Blood Pressure Mean [Right Arm] Blood Pressure Source [Right Arm] 02 Sat by Pulse Oximetry 98 99 Oxygen Delivery Method Lab Data Lab Results 06/02/25 09:40: WBC 4.0 L, RBC 3.78 L, Hgb 12.4, Hct 36.7 L, MCV 97.1, MCH 32.8 H, MCHC 33.8, RDW 13.3, Plt Count 132 L, MPV 10.8 H, Neut % (Auto) 73.3, Lymph % (Auto) 15.9, [place] % (Auto) 10.2 H, Eos % (Auto) 0.2, Baso % (Auto) 0.2, Neut # (Auto) 2.9, Lymph # (Auto) 0.[address] L, [place] # (Auto) 0.4, Eos # (Auto) 0.0, Baso # (Auto) 0.0, Sodium 134 L, Potassium 3.8, Chloride 104, Carbon Dioxide 26, Anion Gap 7.8, BUN 20 H, Creatinine 0.90, Estimated Creat Clear 59, Estimated GFR 61, Est GFR ( Amer) 73, Glucose 109 H, Calcium 9.4, Magnesium 1.8, Total Bilirubin 1.8 H, AST 32, ALT 20, Alkaline Phosphatase 62, Troponin I 0.03, NT-Pro-B Natriuret Pep 513 H, Total Protein 6.3, Albumin 4.1, Globulin 2.2, Albumin/Globulin Ratio 1.9 H, TSH 1.04, Free T4 1.47 06/02/25 12:14: Troponin I 0.03 06/02/25 09:40 06/02/25 09:40 Orders (Tests/Meds): ED MEDICATIONS Discontinued Medications Generic Name Dose Route Start Last Admin Trade Name Maulik PRN Reason Stop Dose Admin Acetaminophen 1,000 mg 06/02/25 12:15 06/02/25 12:16 Acetaminophen 500mg Tab PO 06/02/25 12:16 1,000 mg ONCE ONE Administration Lactated Ringer's 500 mls @ 999 mls/hr 06/02/25 09:44 06/02/25 09:53 Lactated Ringer's 500ml IV 06/02/25 10:14 999 mls/hr .Q31M ONE Administration Lactated Ringer's 500 mls @ 999 mls/hr 06/02/25 10:26 06/02/25 10:32 Lactated Ringer's 500ml IV 06/02/25 10:56 999 mls/hr .Q31M ONE Administration Lactated Ringer's 500 mls @ 999 mls/hr 06/02/25 12:22 06/02/25 12:28 Lactated Ringer's 500ml IV 06/02/25 12:52 999 mls/hr .Q31M ONE Administration Ondansetron HCl 4 mg 06/02/25 09:46 06/02/25 09:53 Ondansetron 4mg/2ml Vial IV 06/02/25 09:47 4 mg ONCE ONE Administration ORDERS Category Date Time Status POCUS Point of Care (ER Only) Stat Exams 06/02/25 09:28 Completed XR chest portable Stat Exams 06/02/25 09:43 Completed BNP [NT Pro Brain Natriuretic Pep.] Stat Lab 06/02/25 09:40 Completed CBC w/Auto Diff [Complete Blood Count Auto Diff] Stat Lab 06/02/25 09:40 Completed CMP [Comprehensive Metabolic Panel] Stat Lab 06/02/25 09:40 Completed Free T4 (Free Thyroxine) Stat Lab 06/02/25 09:40 Completed Magnesium Stat Lab 06/02/25 09:40 Completed TSH [Thyroid Stimulating Hormone] Stat Lab 06/02/25 09:40 Completed Troponin I Q3H Lab 06/02/25 12:14 Completed Troponin I Q3H Lab 06/02/25 15:45 Ordered Troponin I Stat Lab 06/02/25 09:40 Completed ECG Data Tracing #1: I reviewed this ECG and interpreted as documented below: Normal sinus rhythm. No ST elevation or depression. Ventricular rate of 67 bpm. QTc normal at 434. Patient does have T wave inversions in lead II, 3, aVF as well as V2, V3, V4, V5 and V6. This is unchanged from her previous EKGs Medical Decision Narrative: Gina Hector is a 79-year-old female with a past medical history of coronary artery disease status post CABG three-vessel over 25 years ago at [facility], recent PCI with stenting on 05/14, hypertension, hyperlipidemia, cholecystectomy, right wrist surgery, right hip replacement who presents to the emergency department via EMS for complaint of dizziness. Patient states that she felt hot yesterday but does not believe she had a fever and spent most of the day in front of a fan. She states that this morning, when she tried to get out of bed, she felt like she was going to pass out so she laid down for another 15 minutes but still felt that way afterward. Then she called 911. She denies any chest pain. She does report that she chronically has intermittent shortness of breath sometimes with exertion. She reports chronic epigastric abdominal pain that is unchanged from baseline. She does report some nausea but no vomiting, diarrhea. She states that she has not been eating well but believes that she has been drinking enough. She has been spending some time outside sitting on her porch. She denies any falls or trauma. Per EMS, patient was mildly hypotensive with. On arrival, patient's initial blood pressure 113/55, heart rate normal at 62, afebrile, oxygen saturation 99% on room air. Blood pressure of 107 over 70s. Physical exam, as stated above, revealed an overall well-appearing female in no distress. She is nontoxic-appearing. Cardiopulmonary exam is unremarkable with no wheezing, rales or rhonchi. No murmurs. Abdomen is soft, nontender nondistended. She is GCS 15. She does not appear pale. No clinically significant edema in her lower extremities. Differential diagnosis includes, but is not limited to: ACS, metabolic derangement, electrolyte derangement, dehydration, hypovolemia resulting in orthostasis, CHF, among others. The most morbid conditions were considered and workup was based on these. Workup in the emergency department included: Orthostatic vital signs, CBC, CMP, magnesium level, troponin, BNP, TSH/free T4, EKG, chest x-ray. Patient was initially treated with 500 cc lactated Ringer's, 4 mg IV Zofran Chest x-ray interpreted by me personally. No focal consolidation, no pneumothorax, no widening of the mediastinum, pleural effusion. Sternotomy wires in place. No appreciable see final radiology report for details. Laboratory studies show mildly low white blood cell count of 4, however this appears to be close to her baseline. Hemoglobin at baseline of 12.4 and hematocrit of 36.7. Platelets mildly low at 132 but appears to be close to baseline and has been mildly low in the past. Mildly low sodium of 134, electrolytes otherwise within normal limits. BUN slightly elevated at 20 and creatinine normal at 0.9. Glucose normal at 109. Magnesium normal at 1.8. Bilirubin is mildly elevated at 1.8, however it has been mildly elevated in the past around 1.6. Initial troponin 0.03, repeat troponin []. BNP is 513, which is the lowest it has been recorded in our system. Most recently was 1140 on 05/26. TSH normal at 1.04. Patient's orthostatic vital signs were positive, will administer an additional 500 cc lactated ringer this is felt that this is likely from decreased oral intake resulting in her orthostasis. Patient was received a total of 1.5 L IV fluids thus far. She still reports symptoms of lightheadedness with ambulation. I had a lengthy discussion with the patient about options moving forward. It does appear that she has a history of M?ni?re's disease according to previous records. Patient states that she lives alone and is very fearful about going home and does not feel safe going home. Patient states that she has nobody available to help her at home, and [place] [address] [facility]. Given this, it is felt that she would benefit from admission for PT/OT and potentially being set up with home health or some other service that could help her at home if she does not warrant admission to an acute care facility after PT/OT evaluation. I did discuss patient's case with Dr. Carvalho for admission and he graciously agreed to admit the patient. Critical Care Critical Care Time Critical Care Time: No
--- OUTSIDE RECORDS SUMMARY | 2025-06-02 09:50 | XMS_ITS | Encounter Summary ---
Author Organization [facility] ([place], [place] Address [address] [place] [address] Care Team Providers Care Wireless Communications Engineer Name Role Phone José Miguel Verde MD Primary Care Provider + [phone] Encounter Details Date Type Department Care Team (Late st Contact Info) Description 01/08/2019 Transcribed Document [facility] [place] [address] [place] [address] ProviderNitin MD [address] [id number] Social History Tobacco Use Types Packs/Day Years [...] - Nitin ProviderMD - 01/08/2019 6:41 PM [facility] ED Assessment Entered On: 01/08/2019 19:12 EST Performed On: 01/08/2019 19:11 EST by Roc Saenz RN ED Quick Look Assessment Level of Consciousness : Alert, Awake Affect/Behavior : Appropriate, Calm Orientation : Oriented x 4 Roc Saenz RN - 01/08/2019 19:11 EST ED General-Functional Assess Information Obtained From : Patient Communication Barrier : None Primary Language : [place] Any Spiritual/Cultural Needs or Requests : No [...] 01/08/2019 19:11 EST Electronically signed by [facility] [employer] Top Collar Maker Cerner at 02/26/2023 11:00 PM CDT documented in this encounter Plan of Treatment Not on file documented as of this encounter Visit Diagnoses Not on filedocumented in this encounter Care Teams Wireless Communications Engineer Relationship Specialty Start Date End Date José Miguel Verde MD [address] [place] [address] PCP - General Adolescent Medicine 03/07/23 documented as of this encounter
--- OUTSIDE RECORDS SUMMARY | 2025-06-02 09:50 | XMS_ITS | Data Portability ---
Author Organization [facility] [place] [facility], [facility] [place] [facility] Address [address] [place] [address] Care Team Providers Care Drying Room Operator Name Role Phone MIGDALIA KHANNA Primary Care Provider [phone] Abstractor Assessment Encounter Date Assessment Date Assessment LastModified [...] graft angiography. This was carried out by la on March 10 and revealed ostial RCA [...] has been evaluated in the ER at [facility] on 01/15/2024 for chest pain. She was [...] has been evaluated in the ER at [facility] on 01/15/2024 for chest pain. She was [...] has been evaluated in the ER at [facility] on 01/15/2024 for chest pain. She was [...] Modified Time Details Appointments RECHECK 2024 03:45P Jorge SALAZAR MD Not available Not available Not available Lab None recorded . Referral None recorded . Procedures None recorded . Surgeries None recorded . Imaging None recorded . Medication Orders None recorded . Patient TargetsNo targets recorded. Patient Instructions Encounter Date Encounter Id Patient Instructions Last Modified By Organization Details Last Modified Time 02/28/2024 [id number] body mass index: care instructions [email or web address] Not available 02/28/2024 18:49:40 high blood pressure: care instructions Not available 02/28/2024 18:49:40 10/29/2024 [id number] body mass index: care instructions Not available [...] color flow No observ ation record ed. [address], [place], [address], 01/29/2024 09:10:07 01/30/20 24 01/19/2024 US, doppl er echoc ardio gram, w/ color flow No observ ation record ed. [address], [place], [address], 01/31/2024 13:06:02 01/30/20 24 01/19/2024 US, doppl er echoc ardio gram, w/ color flow No observ ation record ed. [address] (Med Record) [address], [place], [address], 01/31/2024 13:05:34 01/30/20 24 01/15/2024 elect rocar diogr am No observ ation record ed. [address], [place], [address], 01/31/2024 13:05:20 02/12/20 24 01/19/2024 US, doppl er echoc ardio gram, w/ color flow No observ ation record ed. [address], [place], [address], 02/12/2024 15:34:23 02/12/20 24 02/06/2024 event monit or No observ ation record ed. [address], [place], [address], 02/13/2024 11:15:22 05/02/20 24 04/24/2024 elect geetha johnson am No observ ation record ed. BARCODE Not Available 2023 08:45:48 Result Notes None recorded. Problems Name Problem SNOMED Code Status Onset Date Resolution Date Notes Provider Name and Address Organization Details Recorded Time Coronary arteriosc lerosis in [place] artery 867293275113 7 Active 2014 From Automated Load;Prov ider: Jason Amado;Stat us: Active [facility] 0 15:08:54 Hyperlipi demia 69176311 Active 2014 From Automated Load;Prov ider: Jason Amado;Stat us: Active [facility] 0 15:08:54 Problem Notes None recorded. Procedures Surgical History Date Name Laterality Status Provider Name and Address Organization Details Recorded Time 04/24/20 24 EKG completed MIGUEL SALAZAR MD [address] [place] [address], [phone], [facility] 04/26/2024 11:09:13 10/23/20 23 EKG completed MIGUEL SALAZAR MD [address] [place] [address], [phone], [facility] 10/23/2023 14:45:41 10/25/20 22 EKG completed YELENA GARCIA PA-C [address] [place] [address], [phone], [facility] 10/25/2022 14:05:38 04/25/20 22 EKG completed YELENA GARCIA PA-C [address] [place], [address], [facility] 04/25/2022 14:01:56 10/20/20 21 EKG completed YELENA GARCIA PA-C [address] [place], [address], [facility] 10/20/2021 14:58:02 10/12/20 10 Cardiac Catheterization completed [facility] 03/29/2017 15:44:16 09/13/20 02 Cardiac Surgery completed [facility] 03/29/2017 15:43:45 Other completed [facility] 03/29/2017 15:43:14 Cholecystectomy completed [facility] 03/29/2017 15:43:26 Other completed [facility] 03/29/2017 15:44:26 Other completed [facility] 03/29/2017 15:44:34 Other completed [facility] 03/29/2017 15:44:42 Other completed [facility] 03/29/2017 15:44:50 Imaging Results None recorded. Procedure Notes None recorded. Medical Equipment None Reported. Allergies Allergen ID Allergen Name Allergen Category Reaction Reaction Severity Criticality Documentation Date Start Date Code Code System Note Provider Name and Address Organization Details Recorded Time 553643 Motrin medicatio n itching Not available Not available 10/06/2016200948 8 RxNorm React ion: ITCHI NG; Comme nt: Creat ed By: Marge rivas Date: 08/31 3:29: 43 PM; Not Available [facility] 6 14:10:00 063660 Product containin g penicilli n (product) medicatio n rash Not available Not available 10/07/20162009 23188 8001 SNOMED React ion: RASH; Comme nt: Creat ed By: Marge Helms reate d Date: 08/31 3:29: 20 PM; Not Available [facility] 6 03:51:38 Medications Name Sig Start Date [...] Updated DateTime 4 162.56 cm 34 kg/m2 05461.0 1 g 97 % 97 % 64 /min 120/68 mm[Hg] Magda Zhong [facility] 4 15:03:41 Date Recorded Body height Body mass index (BMI) Body weight Heart rate Respiratory rate Oxygen saturation Oxygen saturation in Arterial blood by Pulse oximetry Systolic And Diastolic Provider Name and Address Organization Details Last Updated DateTime 3 162.56 cm 34.1 kg/m2 90894.3 9 g 59 /min 16 /min 96 % 96 % 120/78 mm[Hg] Maddi Llanes [facility] 3 09:29:27 Date Recorded Body height Body mass index (BMI) Body weight Respiratory rate Heart rate Oxygen saturation Oxygen saturation in Arterial blood by Pulse oximetry Systolic And Diastolic Provider Name and Address Organization Details Last Updated DateTime 4 162.56 cm 34.4 kg/m2 86176.5 7 g 16 /min 58 /min 98 % 98 % 124/66 mm[Hg] Lo Ramirez [facility] 4 14:52:40 Date Recorded Body height Body mass index (BMI) Body weight Heart rate Oxygen saturation Oxygen saturation in Arterial blood by Pulse oximetry Systolic And Diastolic Provider Name and Address Organization Details Last Updated DateTime 3 162.56 cm 34.8 kg/m2 07791.4 6 g 58 /min 97 % 97 % 122/65 mm[Hg] Emily Gama [facility] 3 13:51:20 Date Recorded Body height Oxygen saturation Oxygen saturation in Arterial blood by Pulse oximetry Heart rate Systolic And Diastolic Provider Name and Address Organization Details Last Updated DateTime 4 162.56 cm 98 % 98 % 65 /min 140/70 mm[Hg] Magda Zhong [facility] 4 14:03:05 Social History Question Answer Notes LastModified by Organizat ion Details LastModified Time Tobacco Smoking Status Never Smoker Leidy Ryder [facility] 03/29/2017 15:41:57 How Much Tobacco Do You Chew? None Information not available 11/23/2020 Marital Status Informatio n not available 03/29/2017 What Was The Date Of Your Most Recent Tobacco Screening? 10/29/2024 Information not available 10/29/2024 How Many Children Do You Have? 1 Information not available 03/29/2017 What Is Your Relationship Status? [email or web address] Information not available 10/23/2023 How Much Tobacco Do You Smoke? No Information not available 11/23/2020 Has Tobacco Cessation Counseling Been Provided? No Information not available 02/28/2024 Have You Recently Traveled Abroad? No [email or web address] Information not available 10/20/2021 Sex: Female Functional Status Question Answer Note LastModified by Organizat ion Details LastModified Time Do you or have you ever used any other forms of tobacco or nicotine? No Information not available 02/28/2024 Do you or have you ever used smokeless tobacco? Never used smokeless tobacco [email or web address] Information not available 10/24/2019 Are you currently employed? No Information not available 02/28/2024 What is your occupation? Retired [employer] Information not available 03/29/2017 Do you or have you ever used e-cigarettes or vape? Never used electronic cigarettes [email or web address] Information not available 10/24/2019 Mental Status None [...] History Condition Response Coronary Artery Disease Y Heart Problems Y Thyroid Disease N Atrial Fibrillation N Heart Conditions Y Heart Arrhythmia N Implanted Cardiac Device N Thyroid Problems N COPD N Lung Disease N Pacemaker N Peripheral Arterial Disease N Edema Y Nervous Illness Y Chest Pain Y Heart Attack (MA) Y Ulcers N Diabetes N Rheumatic Fever [...] 50 mcg/0.25mL dose 12/09/2020 completed Emily Malloy [facility] 10/20/2021 14:10:21 COVID-19, mRNA, LNP-S, PF, 100 mcg/0.5mL dose or 50 mcg/0.25mL dose 01/06/2021 completed Emily Malloy [facility] 10/20/2021 14:10:37 COVID-19, mRNA, LNP-S, PF, 100 mcg/0.5mL dose or 50 mcg/0.25mL dose 08/11/2021 completed Emily Malloy [facility] 10/20/2021 14:10:54 Past Encounters Encounter ID Performer Location Encounter Start Date Encounter Closed Date Diagnosis/Indication Diagnosis SNOMED-CT Code Diagnosis ICD10 Code Diagnosis Note [id number] JASON AMADO MD CARDIOLOG Y [address] [place], [place] [phone] 04/03/2017 13:10:27 04/03/2017 13:49:50 Coronary arteriosclerosis in [place] artery 3587578557 107 I25.10 Medication changes, as well as [...] call for any change in status. Hyperlipidemia 63006058 E78.5 reviewed outside lipid studies. All parameters are in appropriat e range. She is to continue her current regimen. [id number] JASON AMADO MD CARDIOLOG Y [address] [place], [place] [address] 09/25/2017 12:53:34 09/25/2017 14:36:54 Coronary arteriosclerosis in [place] artery 1044638535 107 I25.10 Medication changes, as well as [...] call for any change in status. Hyperlipidemia 34089980 E78.5 reviewed outside lipid studies. All parameters are in appropriat e range. She is to continue her current regimen. [id number] JASON AMADO MD CARDIOLOG Y [address] [place] [address] 04/02/2018 09:28:26 04/02/2018 11:01:03 Coronary arteriosclerosis in [place] artery 8655474207 107 I25.10 Medication changes, as well as [...] call for any change in status. Hyperlipidemia 85995389 E78.5 reviewed outside lipid studies. All parameters are in appropriat e range. She is to continue her current regimen. [id number] JASON AMADO MD CARDIOLOG Y [address] [place] [address] 10/22/2018 13:48:50 10/22/2018 15:10:00 Coronary arteriosclerosis in [place] artery 2653215189 107 I25.10 Medication changes, as well as [...] call for any change in status. Hyperlipidemia 86930207 E78.5 Most recent testing reviewed. All laboratory measuremen ts in appropriat e parameters on current medical therapy. This was reviewed and discussed with the patient and all questions answered. [id number] JASON AMADO MD CARDIOLOG Y [address] [place] [address] 02/07/2019 11:09:23 02/07/2019 13:35:19 Coronary arteriosclerosis in [place] artery 2445632642 107 I25.10 Medication changes, as well as [...] call for any change in status. Hyperlipidemia 35620090 E78.5 Most recent testing reviewed. All laboratory measuremen ts in appropriat e parameters on current medical therapy. This was reviewed and discussed with the patient and all questions answered. [id number] JASON AMADO MD CARDIOLOG Y [address] [place] [address] 05/08/2019 13:19:05 05/08/2019 13:58:46 Coronary arteriosclerosis in [place] artery 6575405506 107 I25.10 Medication changes, as well as [...] call for any change in status. Hyperlipidemia 18834700 E78.5 Most recent testing reviewed. All laboratory measuremen ts in appropriat e parameters on current medical therapy. This was reviewed and discussed with the patient and all questions answered. Edema of foot 423934340 R60.0 I discussed the importance of salt restrictio n. Per FDA recommenda tions, I advise limit of 2000 -2400 mg daily of sodium. Increase sodium intake is often associated with worsening of hypertensi on and or heart failure.DA SH diet given.. Advised to increase furosemide to 40 mg a day until edema resolves and then resume previous dosage. [id number] FROILAN BAGLEY MD HEM/ONC [facility] CLOSED [address] [place] [address] 09/09/2019 08:55:56 09/09/2019 09:56:44 [id number] FROILAN BAGLEY MD HEM/ONC SB CLOSED [address] [place] [address] 09/23/2019 14:46:58 09/23/2019 15:53:02 [id number] JASON AMADO MD CARDIOLOG Y [address] [place] [address] 10/24/2019 12:38:41 10/24/2019 13:57:59 Coronary arteriosclerosis in [place] artery 1205085996 107 I25.10 Medication changes, as well as [...] call for any change in status. Hyperlipidemia 84437318 E78.5 Most recent testing reviewed. All laboratory measuremen ts in appropriat e parameters on current medical therapy. This was reviewed and discussed with the patient and all questions answered. Edema of foot 022794332 R60.0 I discussed the importance of salt restrictio n. Per FDA recommenda tions, I advise limit of 2000 -2400 mg daily of sodium. Increase sodium intake is often associated with worsening of hypertensi on and or heart failure.DA SH diet given.. Advised to increase furosemide to 40 mg a day until edema resolves and then resume previous dosage. [id number] FROILAN BAGLEY MD HEM/ONC [facility] [address] [place] [address] 04/20/2020 12:49:16 04/20/2020 13:27:21 [id number] JASON AMADO MD CARDIOLOG Y [address] [place] [phone] 05/04/2020 13:42:38 05/04/2020 14:45:16 Coronary arteriosclerosis in [place] artery 8037208356 107 I25.10 Medication changes, as well as [...] call for any change in status. Hyperlipidemia 06903395 E78.5 Most recent testing reviewed. All laboratory measuremen ts in appropriat e parameters on current medical therapy. This was reviewed and discussed with the patient and all questions answered. Edema of foot 823717163 R60.0 I discussed the importance of salt restrictio n. Per FDA recommenda tions, I advise limit of 2000 -2400 mg daily of sodium. Increase sodium intake is often associated with worsening of hypertensi on and or heart failure.DA SH diet given.. Advised to increase furosemide to 40 mg a day until edema resolves and then resume previous dosage. [id number] JASON AMADO MD CARDIOLOG Y [address] [place] [address] 11/23/2020 14:04:41 11/23/2020 15:54:54 Coronary arteriosclerosis in [place] artery 0889226124 107 I25.10 Medication changes, as well as [...] call for any change in status. Hyperlipidemia 34350914 E78.5 Most recent testing reviewed. All laboratory measuremen ts in appropriat e parameters on current medical therapy. This was reviewed and discussed with the patient and all questions answered. Edema of foot 117685794 R60.0 I discussed the importance of salt restrictio n. Per FDA recommenda tions, I advise limit of 2000 -2400 mg daily of sodium. Increase sodium intake is often associated with worsening of hypertensi on and or heart failure.DA SH diet given.. Advised to increase furosemide to 40 mg a day until edema resolves and then resume previous dosage. COVID-19 806101647 U07.1 I had extensive discussion with patient regarding the importance of vaccinatio n and reviewed findings of COVID 19 infection and answered all questions. [id number] JASON AMADO MD CARDIOLOG Y [address] [place] [address] 04/22/2021 10:16:00 04/22/2021 10:42:04 Coronary arteriosclerosis in [place] artery 5983882357 107 I25.10 Medication changes, as well as [...] No testing needed at this time Hyperlipidemia 87930525 E78.5 Most recent testing reviewed. All laboratory measuremen ts in appropriat e parameters on current medical therapy. This was reviewed and discussed with the patient and all questions answered. Edema of foot 458285262 R60.0 I discussed the importance of salt restrictio n. Per FDA recommenda tions, I advise limit of 2000 -2400 mg daily of sodium. Increase sodium intake is often associated with worsening of hypertensi on and or heart failure.DA SH diet given.. Advised to increase furosemide to 40 mg a day until edema resolves and then resume previous dosage. COVID-19 943561067 U07.1 I had extensive discussion with patient regarding the importance of vaccinatio n and reviewed findings of COVID 19 infection and answered all questions. [id number] YELENA GARCIA PA-C CARDIOLOG Y [address] [place] [address] 10/20/2021 13:30:08 10/20/2021 15:19:47 Coronary arteriosclerosis 01290753 I25.10 Medication changes, as well as new [...] call for any change in status Dyslipidemia 710837745 E 78.5 Lipid goals discussed with patient. (Total cholestero l less than 170, LDL less than 70. ) Continue heart healthy diet.bertin nue current dose of Lipitor. [id number] YELENA GARCIA PA-C CARDIOLOG Y [address] ,[address] [place], [place] [address] 04/25/2022 13:10:58 04/25/2022 14:17:13 Obese 689670195 E66.9 Coronary arteriosclerosis 82597346 I25.10 Medication changes, as well as new [...] call for any change in status Dyslipidemia 586270837 E 78.5 Lipid goals discussed with patient. (Total cholestero l less than 170, LDL less than 70. ) Continue heart healthy diet.bertin nue current dose of Lipitor. [id number] YELENA GARCIA PA-C CARDIOLOG Y [address],[address] [place], [place] [address] 10/25/2022 13:07:16 10/25/2022 14:19:06 Obese 169462135 E66.9 Coronary arteriosclerosis 80042146 I25.10 The patient is doing well on current management . No new active problems identified . Chronic problems are all stable. Patient is to continue current regimen without change. All questions answered and regimen reviewed. Patient is to call for any change in status Dyslipidemia 901437062 E 78.5 Continue current dose of Lipitor. Obtain fasting lipid profile with PCP [id number] MIGUEL SALAZAR MD CARDIOLOG Y [address] [place] [address] 04/19/2023 08:57:28 04/19/2023 12:59:26 Obesity 472776138 E66.9 patient's BMI today was = 34.1; recommend weight loss for beneficial effects on health. Coronary atherosclerosis 610281877 I25.10 patient with history of CAD, history of CABG-see HPI for detail; no new symptoms reported; exam is relatively unchanged from previous visit; continue with current medication s -enteric-c oated aspirin 81 mg p.o. daily, atenolol 50 mg 1 p.o. nightly, colestipol 1 g tablet p.o. twice daily Anxiety 17066927 F41.9 She reports much increased anxiety/st ress in her life recently due to the deaths of several friends. Hyperlipidemia 02200510 E78.5 continue with current medication s -colestipo l 1 g tablet p.o. twice daily, low cholestero l diet, and recommend fasting lipids at least yearly. Goal lipid profile: TC<=200, TG<=150, HDL>=40, LDL<=70. [id number] MIGUEL SALAZAR MD CARDIOLOG Y SB [address] [place] [address] 10/23/2023 13:19:59 10/23/2023 15:24:43 Coronary atherosclerosis 603420936 I25.10 patient with history of CAD, history of CABG-see HPI for detail; no new symptoms reported; exam is relatively unchanged from previous visit; continue with current medication s -enteric-c oated aspirin 81 mg p.o. daily, atenolol 50 mg 1 p.o. nightly, colestipol 1 g tablet p.o. 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 Cardiac exam today was benign. No new recommenda tions at this time Essential hypertension 82477871 I10 BP today was = 122/65 mmHg; continue with current med. -Atenolol 50 mg p.o. nightly patient is recommende d to check BPs at home periodical ly & bring BP log to next visit. A low sodium (< 2000 mg/day) diet is also recommende d. [id number] MIGUEL SALAZAR MD CARDIOLOG Y SB [address] [place] [address] 02/28/2024 14:13:45 02/28/2024 15:43:14 Essential hypertension 28799587 I10 BP today was = 120/68 mmHg; continue with current med. - Atenolol 50 mg p.o. nightly patient is recommende d to check BPs at home periodical ly & bring BP log to next visit. A low sodium (< 2000 mg/day) diet is also recommende d. Obesity 601316266 E66.9 patient's BMI today was = 34.0; recommend weight loss for beneficial effects on health. Coronary atherosclerosis 697306712 I25.10 patient with history of CAD, history of CABG-see HPI for detail; no new symptoms reported; exam is relatively unchanged from previous visit; continue with current medication s -enteric-c oated aspirin 81 mg p.o. daily, atenolol 50 mg 1 p.o. nightly, colestipol 1 g tablet p.o. twice daily. 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 Cardiac exam today was benign. No new recommenda tions at this time Palpitations 40815809 R0 0.2 The etiology of the patient's [...] the goal of reducing palpitatio n burden. 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 Cardiac exam today was benign. No new recommenda tions at this time Essential hypertension 86984832 I10 BP today was = 124/66 mmHg; continue with current med. - Atenolol 50 mg p.o. nightly patient is recommende d to check BPs at home periodical ly & bring BP log to next visit. A low sodium (< 2000 mg/day) diet is also recommende d. Palpitations 29637922 R0 0.2 The etiology of the patient's [...] goal of reducing palpitatio n burden. Obesity 584633079 E66.9 patient's BMI today was = 34.4; recommend weight loss for beneficial effects on health. 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 Cardiac exam today was benign. No new recommenda tions at this time Essential hypertension 92576228 I10 BP today was = 140/70 mmHg, HR=65 bpm; continue with current med. - Atenolol 50 mg p.o. nightly patient is recommende d to check BPs at home periodical ly & bring BP log to next visit. A low sodium (< 2000 mg/day) diet is also recommende d. Palpitations 12301958 R0 0.2 The etiology of the patient's [...] goal of reducing palpitatio n burden. Obesity 606635387 E66.9 patient's BMI today was = 34.4; recommend weight loss for beneficial effects on health. Gastroesop hageal reflux disease 344944979 K21.9 Patient reports that her chest discomfort [...] Gaines Member ID Guarantor Name 05/18/2025 2 [place] [id number] Gina Haas [id number] Gina Haas 05/18/2025 1 [place] Gina Hector [id number] Gina Haas 10/07/2020 2 [id number] Ginarudi Hector [id number] Gina Hector Notes Date Note Type [...] graft angiography. This was carried out by la on March 10 and revealed ostial RCA [...] is reported as stable. MIGUEL SALAZAR MD [address] [place] [address], [phone], [facility] 04/19/2023 12:47:20 10/23/2023 text/html Ms. Hector [...] graft angiography. This was carried out by la on March 10 and revealed ostial RCA [...] a scheduled follow-up visit. MIGUEL SALAZAR MD [address] [place] [address], [phone], [facility] 10/23/2023 14:47:35 02/28/2024 text/html Ms. Hector [...] graft angiography. This was carried out by la on March 10, 2023, and revealed ostial [...] has been evaluated in the ER at [facility] on 01/15/2024 for chest pain. She was ruled out for ACS, and sent home. Since then, she reports occasional SOA/THOMPSON and chest discomfort as well as palpitations. She went to the ER twice more last month, and wonders if her recent symptoms were related to anxiety. Patient returns to the clinic today for a scheduled follow-up visit. MIGUEL SALAZAR MD [address] [place] [address], [phone], [facility] 02/28/2024 18:50:28 04/24/2024 text/html Ms. Hector [...] has been evaluated in the ER at [facility] on 01/15/2024 for chest pain. She was [...] a scheduled follow-up visit. MIGUEL SALAZAR MD [address] [place] [address], [phone], [facility] 04/26/2024 11:11:23 10/29/2024 text/html Ms. Hector [...] graft angiography. This was carried out by la on March 10, 2023, and revealed ostial [...] has been evaluated in the ER at [facility] on 01/15/2024 for chest pain. She was [...] a scheduled follow-up visit. MIGUEL SALAZAR MD [facility] [place], [phone], [facility] 10/29/2024 19:38:08 OBGyn Episode No OBEpisode recorded.
--- OUTSIDE RECORDS SUMMARY | 2025-06-02 09:50 | XMS_ITS | Encounter Summary ---
Author Organization [employer] ([place], [place], [place], [place]) Address [address] [place] [address] Care Team Providers Care Api Product Manager Name Role Phone José Miguel Verde MD Primary Care Provider + [phone] Encounter Details Date Type Department Care Team (Late st Contact Info) Description 01/08/2019 Transcribed Document [facility] Family Medicine [address] [place] [address] ProviderNitin MD [address] [id number] Social History Tobacco Use Types Packs/Day Years [...] - Nitin ProviderMD - 01/08/2019 11:24 PM [facility] [address] [place] [address] PERSON INFORMATION Name GINA HECTOR Age 73 Years 1945 Sex Female Language Stateless PCP MELVIN RASCON MD-INT Marital Status Med Service Emergency Medicine Acct# Arrival 01/08/2019 18:41:00 Visit Reason Chest pain; CHEST PAIN/LEFT ARM PAIN Acuity 3 - Urgent LOS 000 04:43 Depart Date: 01/08/19 11:24 PM Address: [address] [facility] [address] [facility] [id number] Comment: PROVIDER INFORMATION Provider Role Assigned Unassigned BEAR KING ARNP ED Physician 01/08/2019 18:50:05 Roc Saenz, PIGEON FANCIER Nurse 01/08/2019 18:59:17 KEYUR BROWN MD ED [...] PATIENT EDUCATION INFORMATION Instructions: Nonspecific Chest Pain, [id number]; Food Choices for Gastroesophageal Reflux Disease, Adult, [id number]; Gastroesophageal Reflux Disease, Adult, Cyew-mj-[id number] Follow up: With: Address: When: Return to Emergency Department Within As needed Comments: Follow-up as instructed Return if condition worsens With: Address: When: [facility] Within 2 to 3 days Comments: For further assistance with your Primary Care Physician please contact the Patient Resource Center at [phone]. Please follow up with Lester Peace. With: Address: When: MELVIN RASCON [address] [facility], [address] [place] [phone] Business (1) Within 2 to 3 days Comment: documented in this encounter Plan of Treatment Not on file documented as of this encounter Visit Diagnoses Not on filedocumented in this encounter Care Teams Api Product Manager Relationship Specialty Start Date End Date José Miguel Verde MD [address] [place] [address] PCP - General Adolescent Medicine 03/07/23 documented as of this encounter
--- OUTSIDE RECORDS SUMMARY | 2025-06-02 09:50 | XMS_ITS | Referral Summary ---
Author Organization [employer] ([place], [place], [place], [place]) Address [address] [place] [address] Care Team Providers Care Needle Board Repairer Name Role Phone José Miguel Verde MD Primary Care Provider + [phone] Allergies Active Allergy Reactions Criticality Noted Date [...] by mouth in the morning. Active pancrelipase, Psm-Bjua-Ymfa, (CREON) 36,000-114,000 - 180,000 unit CpDR capsule [...] Date Hamilton rded Speak language other than [place]ian at home Not on file 12/01/2023 Want [...] Advance Directives For more information, please contact: [phone] * Full Code (Latest Code Status on File) Date Activated Date Inactivated Comments 03/10/2023 5:00 PM 03/11/2023 12:05 PM * Full Code Date Activated Date Inactivated Comments 03/07/2023 2:51 PM 03/10/2023 5:00 PM Care Teams Needle Board Repairer Relationship Specialty Start Date End Date José Miguel Verde MD [address] [place] [address] PCP - General Adolescent Medicine 03/07/23
--- OUTSIDE RECORDS SUMMARY | 2025-06-02 09:50 | XMS_ITS | Encounter Summary ---
Author Organization [employer] ([place], [place], [place], [place]) Address [address] [place] [address] Care Team Providers Care Loan Documentation Specialist Name Role Phone José Miguel Verde MD Primary Care Provider + [phone] Encounter Details Date Type Department Care Team (Late st Contact Info) Description 01/09/2019 Transcribed Document [facility] [place] Family Medicine [address] [place] [address] ProviderNitin MD [address], [place] [phone] Social History Tobacco Use Types Packs/Day Years [...] - Historical ProviderMD - 01/09/2019 8:32 AM WASTEWATER SUPERVISOR CR Chest 1 Vw Portable Ordered: 01/08/2019 Modified Reason for Exam: chest pain 01/09/2019 07:59 01/09/2019 08:32 (ЕЛЕНА LINDSEY) No further action required documented in this encounter Plan of Treatment Not on file documented as of this encounter Visit Diagnoses Not on filedocumented in this encounter Care Teams Loan Documentation Specialist Relationship Specialty Start Date End Date José Miguel Verde MD [address] [place] [address] PCP - General Adolescent Medicine 03/07/23 documented as of this encounter
--- OUTSIDE RECORDS SUMMARY | 2025-06-02 09:50 | XMS_ITS | Encounter Summary ---
Author Organization [facility] Address [address] [place] [address] Care Team Providers Care District Traffic Chief Name Role Phone José Miguel Verde MD Primary Care Provider [phone] Reason for Visit * Reason Comments Med Refill Encounter Details Date Type Department Care Team (Late st Contact Info) Description 04/04/2025 Refill [facility] RHEUMATOLOGY [address] [address] Nichole Loya, PIPE CAULKER [address] [phone] Social History Tobacco Use Types Packs/Day Years Used Date Smoking Tobacco: Never Abuse Screen Answer Date Recorded Unsafe at Home or Work/School Not on file Feels Threatened by Someone? Not on file 07/2023 Does Anyone Keep You from Co ntacting Others or Doint Things Outside the Home? Not on file 08/21/2023 Physical Sign of Abuse Present Not on file 1 Housing Stability Answer Date Recorded Current Living Arrangements Not on file 07/2023 Potentially Unsafe Housing Conditions Not on lolis e 08/21/2023 Family and Community Support Answer Farhan e Recorded Help with Day-to-Day Activities Not on file 08/21/2023 Lonely or Isolated Not on file 08/21/2023 Employment Answer Date Recorded Do you want help finding or keeping work or a lindsey b? Not on file 08/21/2023 Disabilities Answer Date Recorded Concentrating, Remembering, or Making Decisions Difficulty Not on file 08/21/2023 Doing Errands Independently Difficulty Not on fi le 08/21/2023 Education Answer Date Recorded Help with school or training? 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 documented in this encounter Plan of Treatment Upcoming Encounters Date Type Department Care Team (Late st Contact Info) Description 09/12/2025 1:00 PM EDT Office Visit [facility] R[facility] [address] [address] Nichole Loya, PIPE CAULKER [address] [facility] [address] [place] [address] documented as of this encounter Visit Diagnoses Not on filedocumented in this encounter Care Teams District Traffic Chief Relationship Specialty Start Date End Date José Miguel Verde MD [address] [facility] [address] [place] [address] PCP - General Adolescent Medicine 02/15/19 documented as of this encounter
--- OUTSIDE RECORDS SUMMARY | 2025-06-02 09:50 | XMS_ITS | Data Portability ---
Author Organization [facility] Address [address] [place] [address] Care Team Providers Care Supervisor [place] Name Role Phone FROILAN BAGLEY Hematology/Oncology MEGAN TOM [employer] Supervisor Assessment No assessment recorded. Plan of Treatment [...] By Organization Details Last Modified Time 09/09/2019 [id number] gout: care instructions Not available 09/09/2019 09:47:00 thrombocytopenia : care instructions [email or web address] Not available 09/09/2019 09:47:00 body mass index: care instructions Not available 09/09/2019 09:47:00 Body Mass Index: Care Instructions-LC Not available 09/09/2019 09:46:59 learning about healthy weight [email or web address] Not available 09/09/2019 09:47:00 rheumatoid arthritis diet: care instructions [email or web address] Not available 09/09/2019 09:47:00 Rheumatoid Arthritis (RA): Care Instructions [email or web address] Not available 09/09/2019 09:47:00 Reason for Referral None Reported. Results Created Date Observation Date Name Description Value Unit Range Abnormal Flag Note LastModifiedBy Organization Detail LastModifiedTime 09/09/20 19 09/09/2019 CBC w/ auto diff white blood cells 5.7 K/uL 3.8-10 .8 normal Not Available [facility] [address] [place] [address], [address], 09/09/2019 10:28:34 09/09/20 19 09/09/2019 CBC w/ auto diff red blood cells 4.35 M/uL 3.80-5 .20 normal Not Available [facility] [address] [place] [address], [address], 09/09/2019 10:28:34 09/09/20 19 09/09/2019 CBC w/ auto diff hemoglobin 14.2 g/dL 12.0-1 6.0 normal Not Available [facility] [address] [place] [address], [address], 09/09/2019 10:28:34 09/09/20 19 09/09/2019 CBC w/ auto diff hematocrit 41.2 % 35.0-4 7.0 normal Not Available [facility] [address] [place] [address], [address], 09/09/2019 10:28:34 09/09/20 19 09/09/2019 CBC w/ auto diff MCV 95 fL 80-100 normal Not Available [facility] [address] [place] [address], [address], 09/09/2019 10:28:34 09/09/20 19 09/09/2019 CBC w/ auto diff MCH 33 pg 26-35 normal Not Available [facility] [address] [place] [address], [address], 09/09/2019 10:28:34 09/09/20 19 09/09/2019 CBC w/ auto diff MCHC 34 g/dL 32-36 normal Not Available [facility] [address] [place] [address], [address], 09/09/2019 10:28:34 09/09/20 19 09/09/2019 CBC w/ auto diff RDW 13.8 % 11.0-1 5.0 normal Not Available [facility] [address] [place] [address], [address], 09/09/2019 10:28:34 09/09/20 19 09/09/2019 CBC w/ auto diff MPV 9.2 fL 6.2-10 .5 normal Not Available [facility] [address] [place] [address], [address], 09/09/2019 10:28:34 09/09/20 19 09/09/2019 CBC w/ auto diff platelet count 128 K/uL 130-40 0 low Not Available [facility] [address] [place] [address], [address], 09/09/2019 10:28:34 09/09/20 19 09/09/2019 CBC w/ auto diff neutrophil,a bsolute 4.4 K/uL 1.6-8. 4 normal Not Available [facility] [address] [place] [address], [address], 09/09/2019 10:28:34 09/09/20 19 09/09/2019 CBC w/ auto diff lymphocyte,a bsolute 0.7 K/uL 0.4-5. 1 normal Not Available [facility] [address] [place] [address], [address], 09/09/2019 10:28:34 09/09/20 19 09/09/2019 CBC w/ auto diff monocyte,abs olute 0.5 K/uL 0.0-1. 2 normal Not Available [facility] [address] [place] [address], [address], 09/09/2019 10:28:34 09/09/20 19 09/09/2019 CBC w/ auto diff eosinophil,a bsolute 0.1 K/uL 0.0-0. 8 normal Not Available [facility] [address] [place] [address], [address], 09/09/2019 10:28:34 09/09/20 19 09/09/2019 CBC w/ auto diff basophil,abs olute 0.0 K/uL 0.0-0. 3 normal Not Available [facility] [address] [place] [address], [address], 09/09/2019 10:28:34 09/09/20 19 09/09/2019 CBC w/ auto diff % neutrophils 76.0 % 42.0-7 8.0 normal Not Available [facility] [address] [place] [address], [address], 09/09/2019 10:28:34 09/09/20 19 09/09/2019 CBC w/ auto diff % lymphocytes 12.6 % 11.0-4 7.0 normal Not Available [facility] [address] [place] [address], [address], 09/09/2019 10:28:34 09/09/20 19 09/09/2019 CBC w/ auto diff % monocytes 8.8 % 0.0-11 .0 normal Not Available [facility] [address] [place] [address], [address], 09/09/2019 10:28:34 09/09/20 19 09/09/2019 CBC w/ auto diff % eosinophils 1.9 % 0.0-7. 0 normal Not Available [facility] [address] [place] [address], [address], 09/09/2019 10:28:34 09/09/2009/09/2019 CBC w/ auto diff % basophils 0.7 % 0.0-3. 0 normal Not Available [facility] [address] [place] [address], [address], 09/09/2019 10:28:34 09/09/20 19 09/09/2019 CBC w/ auto diff nucleated red cells 0.0 % 0.0-0. 9 normal Not Available [facility] [address] [place] [address], [address], 09/09/2019 10:28:34 09/09/20 19 09/09/2019 CBC w/ auto diff nucleated RBCs, absolute 0.00 K/uL not estab. normal Not Available [facility] [address] [place], [address], 09/09/2019 10:28:34 09/09/2009/09/2019 ldh, serum or plasm a LDH 248 U/L 135-21 4 high Not Available [facility] [address] [place], [address], 09/09/2019 11:26:41 09/09/2009/09/2019 vitam in B12 + folat e, serum or blood folic acid 18.4 NG/mL 4.8-24 .2 normal Not Available [facility] [address] [place], [address], 09/09/2019 11:43:22 09/09/20 19 09/09/2019 vitam in B12 + folat e, serum or blood vitamin B12 718 pg/mL 232-12 45 normal Not Available [facility] [address] [place], [address], 09/09/2019 11:43:22 09/09/2009/19/2019 JAYDEN (anti nucle ar [...] Patte rns (http s://d oi.or g/10. 1515/ [facility]- 2017- 0052) For addit ional infor roxanna monge refer to http: //sandip Barrientosia jovanni ics.c om/fa q/FAQ 177 (This link is being provi ded for infor david darnell/ educa sidney l purpo ses only. ) TEST PERFO RMED AT: [facility] [address] [place] [address] WHIT Carranza MD Not Available [facility] [address] [place] [address], [address], 09/19/2019 16:56:22 04/20/20 20 04/20/2020 CBC w/ auto diff white blood cells 5.9 K/uL 3.8-10 .8 normal Not Available [facility] [address] [place] [address], [address], 04/20/2020 11:52:50 04/20/20 20 04/20/2020 CBC w/ auto diff red blood cells 4.40 M/uL 3.80-5 .20 normal Not Available [facility] [address] [place] [address], [address], 04/20/2020 11:52:50 04/20/2004/20/2020 CBC w/ auto diff hemoglobin 14.5 g/dL 12.0-1 6.0 normal Not Available [facility] [address] [place] [address], [address], 04/20/2020 11:52:50 04/20/2004/20/2020 CBC w/ auto diff hematocrit 42.0 % 35.0-4 7.0 normal Not Available [facility] [address] [place] [address], [address], 04/20/2020 11:52:50 04/20/20 20 04/20/2020 CBC w/ auto diff MCV 96 fL 80-100 normal Not Available [facility] [address] [place] [address], [address], 04/20/2020 11:52:50 04/20/20 20 04/20/2020 CBC w/ auto diff MCH 33 pg 26-35 normal Not Available [facility] [address] [place] [address], [address], 04/20/2020 11:52:50 04/20/20 20 04/20/2020 CBC w/ auto diff MCHC 34 g/dL 32-36 normal Not Available [facility] [address] [place] [address], [address], 04/20/2020 11:52:50 04/20/20 20 04/20/2020 CBC w/ auto diff RDW 13.6 % 11.0-1 5.0 normal Not Available [facility] [address] [place] [address], [address], 04/20/2020 11:52:50 04/20/20 20 04/20/2020 CBC w/ auto diff MPV 9.0 fL 6.2-10 .5 normal Not Available [facility] [address] [place] [address], [address], 04/20/2020 11:52:50 04/20/20 20 04/20/2020 CBC w/ auto diff platelet count 132 K/uL 130-40 0 normal Not Available [facility] [address] [place] [address], [address], 04/20/2020 11:52:50 04/20/20 20 04/20/2020 CBC w/ auto diff neutrophil,a bsolute 3.9 K/uL 1.6-8. 4 normal Not Available [facility] [address] [place] [address], [address], 04/20/2020 11:52:50 04/20/20 20 04/20/2020 CBC w/ auto diff lymphocyte,a bsolute 1.3 K/uL 0.4-5. 1 normal Not Available [facility] [address] [place] [address], [address], 04/20/2020 11:52:50 04/20/20 20 04/20/2020 CBC w/ auto diff monocyte,abs olute 0.6 K/uL 0.0-1. 2 normal Not Available [facility] [address] [place] [address], [address], 04/20/2020 11:52:50 04/20/20 20 04/20/2020 CBC w/ auto diff eosinophil,a bsolute 0.1 K/uL 0.0-0. 8 normal Not Available [facility] [address] [place] [address], [address], 04/20/2020 11:52:50 04/20/20 20 04/20/2020 CBC w/ auto diff basophil,abs olute 0.1 K/uL 0.0-0. 3 normal Not Available [facility] [address] [place] [address], [address], 04/20/2020 11:52:50 04/20/20 20 04/20/2020 CBC w/ auto diff % neutrophils 65.0 % 42.0-7 8.0 normal Not Available [facility] [address] [place] [address], [address], 04/20/2020 11:52:50 04/20/20 20 04/20/2020 CBC w/ auto diff % lymphocytes 21.6 % 11.0-4 7.0 normal Not Available [facility] [address] [place] [address], [address], 04/20/2020 11:52:50 04/20/20 20 04/20/2020 CBC w/ auto diff % monocytes 10.0 % 0.0-11 .0 normal Not Available [facility] [address] [place] [address], [address], 04/20/2020 11:52:50 04/20/20 20 04/20/2020 CBC w/ auto diff % eosinophils 2.5 % 0.0-7. 0 normal Not Available [facility] [address] [place] [address], [address], 04/20/2020 11:52:50 04/20/20 20 04/20/2020 CBC w/ auto diff % basophils 0.9 % 0.0-3. 0 normal Not Available [facility] [address] [place] [address], [address], 04/20/2020 11:52:50 04/20/20 20 04/20/2020 CBC w/ auto diff nucleated red cells 0.1 % 0.0-0. 9 normal Not Available [facility] [address] [place] [address], [address], 04/20/2020 11:52:50 04/20/20 20 04/20/2020 CBC w/ auto diff nucleated RBCs, absolute 0.00 K/uL not estab. normal Not Available [facility] [address] [place] [address], [address], 04/20/2020 11:52:50 04/20/20 20 04/20/2020 CMP, serum or plasm a glucose 109 mg/dL 74-100 high Not Available [facility] [address] [place] [address], [address], 04/20/2020 12:16:18 04/20/20 20 04/20/2020 CMP, serum or plasm a blood urea nitrogen 24 mg/dL 6-20 high Not Available [facility] [address] [place] [address], [address], 04/20/2020 12:16:18 04/20/20 20 04/20/2020 CMP, serum or plasm a creatinine 1.07 mg/dL 0.50-0 .95 high Not Available [facility] [address] [place] [address], [address], 04/20/2020 12:16:18 04/20/20 20 04/20/2020 CMP, serum or plasm a BUN/creatini ne ratio 22 (calc ) 10-20 high Not Available [facility] [address] [place] [address], [address], 04/20/2020 12:16:18 04/20/20 20 04/20/2020 CMP, serum or plasm a sodium 143 mmol/ L 136-14 5 normal Not Available [facility] [address] [place] [address], [address], 04/20/2020 12:16:18 04/20/20 20 04/20/2020 CMP, serum or plasm a potassium 4.3 mmol/ L 3.4-5. 0 normal Not Available [facility] [address] [place] [address], [address], 04/20/2020 12:16:18 04/20/20 20 04/20/2020 CMP, serum or plasm a chloride 107 mmol/ L 98-107 normal Not Available [facility] [address] [place] [address], [address], 04/20/2020 12:16:18 04/20/20 20 04/20/2020 CMP, serum or plasm a carbon dioxide 24 mmol/ L 20-32 normal Not Available [facility] [address] [place] [address], [address], 04/20/2020 12:16:18 04/20/20 20 04/20/2020 CMP, serum or plasm a anion gap 12 (calc ) 7-25 normal Not Available [facility] [address] [place] [address], [address], 04/20/2020 12:16:18 04/20/20 20 04/20/2020 CMP, serum or plasm a calcium 9.7 mg/dL 8.6-10 .2 normal Not Available [facility] [address] [place] [address], [address], 04/20/2020 12:16:18 04/20/20 20 04/20/2020 CMP, serum or plasm a total protein 7.0 g/dL 6.4-8. 3 normal Not Available [facility] [address] [place] [address], [address], 04/20/2020 12:16:18 04/20/20 20 04/20/2020 CMP, serum or plasm a albumin 4.4 g/dL 3.5-5. 2 normal Not Available [facility] [address] [place] [address], [address], 04/20/2020 12:16:18 04/20/20 20 04/20/2020 CMP, serum or plasm a globulin 2.6 g/dL_ (calc ) 1.5-4. 5 normal Not Available [facility] [address] [place] [address], [address], 04/20/2020 12:16:18 04/20/2004/20/2020 CMP, serum or plasm a albumin/glob ulin ratio 1.7 (calc ) 1.1-2. 5 normal Not Available [facility] [address] [place] [address], [address], 04/20/2020 12:16:18 04/20/20 20 04/20/2020 CMP, serum or plasm a bilirubin, total 0.7 mg/dL 0.1-1. 2 normal Not Available [facility] [address] [place] [address], [address], 04/20/2020 12:16:18 04/20/20 20 04/20/2020 CMP, serum or plasm a alkaline phosphatase 71 U/L 35-105 normal Not Available [facility] [address] [place] [address], [address], 04/20/2020 12:16:18 04/20/20 20 04/20/2020 CMP, serum or plasm a AST 26 U/L 0-32 normal Not Available [facility] [address] [place] [address], [address], 04/20/2020 12:16:18 04/20/20 20 04/20/2020 CMP, serum or plasm a ALT 21 U/L 0-33 normal Not Available [facility] [address] [place], [address], 04/20/2020 12:16:18 04/20/20 20 04/20/2020 CMP, serum or plasm a GFR 59 >= 60 abnormal Not Available [facility] [address] [place], [address], 04/20/2020 12:16:18 04/20/20 20 04/20/2020 CMP, serum [...] month s or longe r. Not Available [facility] [address] [place], [address], 04/20/2020 12:16:18 09/11/20 19 09/11/2019 US, abdom en, limit ed Formerly [facility] [address] [place] [address] Patien t Name: GINA Carranza Patien t [...] Jason Man MD on 2018 9:[email or web address] [place] [address] Radiology [facility] [address] [place], [address], 09/23/2019 15:38:59 Result Notes None recorded. Procedures Surgical History Date Name Laterality Status Provider Name and Address Organization Details Recorded Time CABG completed Salma Billings [facility] 09/09/2019 09:08:09 Cholecystectomy completed Salma Billings [facility] 09/09/2019 09:08:17 [facility] 09:08:34 Back Surgery completed Salmarik Billings [facility] 09/09/2019 09:08:47 wrist repair completed Salma Billings [facility] 09/09/2019 09:09:41 debridement of leg ulcer completed Salma Billings [facility] 09/09/2019 09:10:18 Imaging Results None recorded. Procedure Notes None recorded. Medical Equipment None Reported. Allergies Allergen ID Allergen Name Allergen Category Reaction Reaction Severity Criticality Documentation Date Start Date Code Code System Note Provider Name and Address Organization Details Recorded Time 031159 Motrin medicatio n itching Not available Not available 09/09/201998991 8 [facility] 09:01:45 192494 Product containin g penicilli n (product) medicatio n rash Not available Not available 09/09/2019 85691 8001 SNOMED Salma Billings [facility] 9 09:01:54 Medications Name Sig Start Date Stop Date Status Note LastModified by Organization Details LastModified Time Plaquenil 200 mg tablet Take 1 tablet twice a day by oral route. active Not Available Not Available No t Available vitamin X03-wonbqwr B1 1,000 mcg-100 mg/mL injection solution Take [...] Updated DateTime 04/20/2020 98.6 [degF] Norma Salcido [facility] 0 04/20/2020 12:51:11 Date Recorded Body height Body mass index (BMI) Body weight Heart rate Oxygen saturation Oxygen saturation in Arterial blood by Pulse oximetry Systolic And Diastolic Provider Name and Address Organization Details Last Updated DateTime 0 157.48 cm 40.5 kg/m2 230626. 01 g 63 /min 97 % 97 % 130/72 mm[Hg] [facility] 0 13:02:17 Date Recorded Body weight Body mass index (BMI) Body height Heart rate Oxygen saturation Oxygen saturation in Arterial blood by Pulse oximetry Body temperature Systolic And Diastolic Provider Name and Address Organization Details Last Updated DateTime 9 971092. 08 g 41.2 kg/m2 157.48 cm 65 /min 96 % 96 % 98.9 [degF] 122/62 mm[Hg] [facility] 9 09:19:53 Date Recorded Body height Heart rate Body temperature Body mass index (BMI) Body weight Systolic And Diastolic Provider Name and Address Organization Details Last Updated DateTime 9 157.48 cm 68 /min 99.1 [degF] 41.4 kg/m2 680461. 63 g 136/66 mm[Hg] Yessi King [facility] 9 15:09:42 Social History Question Answer Notes LastModified by Organizat ion Details LastModified Time Tobacco Smoking Status Never Smoker Yessi King [facility] 09/23/2019 15:10:42 How Much Tobacco Do You Chew? None [email or web address] Information not available 09/23/2019 Live Alone Or With Others? Alone [email or web address] Information not available 09/23/2019 Exposure To Smoke No [email or web address] Information not available 09/23/2019 Marital Status [email or web address] Informatio n not available 09/23/2019 What Was The Date Of Your Most Recent Tobacco Screening? 09/23/2019 [email or web address] Information not available 09/23/2019 How Many Children Do You Have? 1 Son 23 Years Ago Information not available 09/23/2019 How Much Tobacco Do You Smoke? No Information not available 04/20/2020 On What Date Was Tobacco Cessation Counseling Provided? 09/23/2019 [email or web address] Information not available 09/23/2019 How Many Years Have You Smoked Tobacco? 0 Information not available 04/20/2020 Sex: Female Functional Status Question Answer Note LastModified by [employer] ion Details LastModified Time What is your level of alcohol consumption? None Information not available 09/23/2019 Do you or have you ever used smokeless tobacco? Never used smokeless tobacco [email or web address] Information not available 09/23/2019 What is your occupation? Retired Information not available 09/23/2019 Do you or have you ever used e-cigarettes or vape? Never used electronic cigarettes [email or web address] Information not available 09/23/2019 Mental Status None [...] 2018 09:10:42 Medical History Condition Response Heart Attack ([place]) Y Heart Disease Y Arthritis Y Depression Y Gynecological HistoryNo gynecological history recorded. Obstetrics History GPAL:G 0 P 0 0 0 0 Past Encounters Encounter ID Performer Location Encounter Start Date Encounter Closed Date Diagnosis/Indication Diagnosis SNOMED-CT Code Diagnosis ICD10 Code Diagnosis Note [id number] JASON WEISS MD CARDIOLOG [place] [address] [place] [phone] 04/03/2017 13:10:27 04/03/2017 13:49:50 [id number] JASON WEISS MD CARDIOLOG [place] [address] [place] [phone] 09/25/2017 12:53:34 09/25/2017 14:36:54 [id number] JASON WEISS MD CARDIOLOG Y [address] [place],[address] [place], [place] [phone] 04/02/2018 09:28:26 04/02/2018 11:01:03 [id number] JASON WEISS MD CARDIOLOG Y [address] [place],[address] [place], [place] [address] 10/22/2018 13:48:50 10/22/2018 15:10:00 [id number] JASON WEISS MD CARDIOLOG Y [address] [place] [id number] 02/07/2019 11:09:23 02/07/2019 13:35:19 [id number] JASON WEISS MD CARDIOLOG Y [address] [place], [place] [phone] 05/08/2019 13:19:05 05/08/2019 13:58:46 [id number] FROILAN BAGLEY MD HEM/ONC [facility] [address] [place], [place] [phone] 09/09/2019 08:55:56 09/09/2019 09:56:44 Rheumatoid arthritis 85181424 M06.[address] Tom. Pt is on plaquenil and cevimeline . Gout 77559492 M10.9 Pt has begun colchicine . Body mass index 30+ - obesity 354456916 Z68.41 Encourage exercise and weight loss. Leukopenia 58451680 D72. 819 Differenti al includes for this and thrombocyt openia include vitamin deficiency , Felty's syndrome as well as LGL. Also, worrisome for another autoimmune such s lupus. Medication effect including colchicine and plaquenil. We will obtain here flow cytometry, CBC, LDH, JAYDEN, splenic US, B12/folate . Thrombocyt openic disorder 186993059 D69.6 As above. [id number] FROILAN BAGLEY MD HEM/ONC [place] [facility] [address] [place], [place] [phone] 1 09/23/2019 14:46:58 09/23/2019 15:53:02 Leukopenia 50434791 D72.819 Differenti al includes for this and [...] dilatation most likely secondary to cholecyste ctomy. [id number] JASON WEISS MD CARDIOLOG Y [address] [place] [phone] 10/24/2019 12:38:41 10/24/2019 13:57:59 [id number] FROILAN BAGLEY MD HEM/ONC [place] [facility] [id number] [place] [address] 1 04/20/2020 12:49:16 04/20/2020 13:27:21 Leukopenia 24984471 D72.819 Labs today are normal. This has [...] dilatation most likely secondary to cholecyste ctomy. [id number] JASON WEISS MD CARDIOLOG Y [address] [place] [id number] 05/04/2020 13:42:38 05/04/2020 14:45:16 [id number] JASON WEISS MD CARDIOLOG Y [address] [place], [place] [phone] 11/23/2020 14:04:41 11/23/2020 15:54:54 [id number] JASON WEISS MD CARDIOLOG Y [address] [place] [phone] 04/22/2021 10:16:00 04/22/2021 10:42:04 [id number] YELENA GARCIA PA-C CARDIOLOG Y [address] [place] [address] 10/20/2021 13:30:08 10/20/2021 15:19:47 [id number] YELENA GARCIA PA-C CARDIOLOG Y [address] [place] [address] 04/25/2022 13:10:58 04/25/2022 14:17:13 [id number] YELENA GARCIA PA-C CARDIOLOG Y [address] [place] [address] 10/25/2022 13:07:16 10/25/2022 14:19:06 [id number] MIGUEL SALAZAR MD CARDIOLOG Y [place] [address] [place] [address] 1 04/19/2023 08:57:28 04/19/2023 12:59:26 [id number] MIGUEL SALAZAR MD CARDIOLOG Y [place] [address] [place] [address] 1 10/23/2023 13:19:59 10/23/2023 15:24:43 [id number] MIGUEL SALAZAR MD CARDIOLOG Y [place] [address] [place] [address] 1 02/28/2024 14:13:45 02/28/2024 15:43:14 [id number] MIGUEL SALAZAR MD CARDIOLOG Y [place] [address] [place] [address] 1 04/24/2024 13:47:52 05/02/2024 11:17:54 [id number] MIGUEL SALAZAR MD CARDIOLOG Y [place] [address] [place] [address] 1 10/29/2024 12:55:01 10/29/2024 14:32:18 Health Concerns [...] OF [place] ([place]ICARE SUPPLEMENT) [id number] Gina Hector [id number] Gina Hector 05/18/2025 1 [place] (MEDICARE) Gina Hector [id number] Gina Hector 10/07/2020 2 [employer] (PP[place]) [id number] Gina Hector [id number] Gina Hector Notes Date Note Type Note Provider Name and Address Organization Details Recorded Time 9 text/html HPIReported bypatient.Advanced Directives / [employer] AuthorizationsAdvanced Directives? YES Dischargedischarge disposition stable Distress ScreeningHas the distress screening been completed in the last 45 days? YES; Distress level 5 Practical Problemsno practical problems Family Problemsno family problems Emotional Problemsdepression; anxiety Spiritual/Religiousspiritua l/religion problems? NO Physical Problemsno physical problems Nutrition [...] ROS per intake note. FROILAN BAGLEY MD [address] [place] [address], [phone], [facility] 09/09/2019 09:47:03 9 text/html HPIReported bypatient.Distress ScreeningHas the distress screening been completed in the last 45 days? YES; Distress level 3 Practical Problemshousing stress;financial/insurance stress;transportation stress Family Problemsfamily health issue Emotional Problemsdepression;nervousn ess;worry Spiritual/Religiousspiritua l/religion problems? NO Physical Problemsdiarrhea;eating/ing estion problem;fatigue Nutrition [...] polyps, diverticulosis per pt. FROILAN BAGLEY MD [address] [place] [address], [phone], [facility] 09/23/2019 15:46:20 0 text/html HPIReported bypatient.Advanced Directives / [employer] AuthorizationsAdvanced Directives? NO Dischargedischarge disposition stable Distress ScreeningHas the distress screening been completed in the last 45 days? YES; Distress level 3 Practical Problemsno practical problems;transportation stress Family Problemsno family problems Emotional Problemsdepression;fears;ne rvousness;sadness;worry Spiritual/Religiousspiritua l/religion problems? NO Physical Problemseating/ingestion problem;fatigue;feeling swollen Nutrition [...] care of Dr. Perez. FROILAN BAGLEY MD [address] [place] [address], [phone], [facility] 04/20/2020 13:19:58 OBGyn Episode No OBEpisode recorded.
--- OUTSIDE RECORDS SUMMARY | 2025-06-02 09:50 | XMS_ITS | Encounter Summary ---
Author Organization [employer] ([place], [place], [place], [place]) Address [address] [place] [address] Care Team Providers Care Curve Cleaner Name Role Phone José Miguel Verde MD Primary Care Provider + [phone] Encounter Details Date Type Department Care Team (Late st Contact Info) Description 07/15/2020 Transcribed Document [facility] Family Medicine [address] [place] [address] ProviderNitin MD [address] [place] [address] Social History Tobacco Use Types [...] 07/15/2020 4:17 PM CDT Electronically signed by [facility] Conversion Bakery Clerk Jessica at 02/26/2023 10:51 PM CDT documented in this encounter Plan of Treatment Not on file documented as of this encounter Visit Diagnoses Not on filedocumented in this encounter Care Teams Curve Cleaner Relationship Specialty Start Date End Date José Miguel Verde MD [address] [place] [address] PCP - General Adolescent Medicine 03/07/23 documented as of this encounter
--- OUTSIDE RECORDS SUMMARY | 2025-06-02 09:50 | XMS_ITS | Encounter Summary ---
Author Organization [employer] ([place], [place], [place], [place]) Address [address] [place] [address] Care Team Providers Care Real Estate Consultant Name Role Phone José Miguel Verde MD Primary Care Provider + [phone] Encounter Details Date Type Department Care Team (Late st Contact Info) Description 01/08/2019 Transcribed Document [facility] Family Medicine [address] [place] [address] ProviderNitin MD [address] [place] [address] Social History Tobacco Use Types [...] Nitin Bueno MD - 01/08/2019 11:24 PM MIRROR FINISHING MACHINE OPERATOR [address] [place] [address] Patient Information Name: GINA HECTOR Age: [...] please contact the Patient Resource Center at [phone]. Please follow up with Lester Peace. With: Address: When: MELVIN RASCON [address] [place] [address], [address] [place] [phone] Business (1) Within 2 to 3 days [...] you start to feel better. ??? Take kxbu-zog-isdqxpv and prescription medicines only as told by [...] 04/17/2009 Document Revised: 07/24/2017 Document Reviewed: 07/24/2017 [employer] Interactive Patient Education ? 2017 [employer] Food Choices for Gastroesophageal Reflux Disease, [...] VegetablesTomatoes. Tomato juice. Tomato and spaghetti sauce. [place] peppers. Onion and garlic. Horseradish. FruitsOranges, grapefruit, [...] spearmint. Fats and OilsHigh-fat foods. This includes Pashto fries and potato chips. OtherVinegar. Strong spices. [...] 04/30/2013 Document Revised: 04/06/2017 Document Reviewed: 09/03/2014 [employer] Interactive Patient Education ? 2017 [employer] Gastroesophageal Reflux Disease, Adult Introduction Normally, [...] vinegar, hot sauces, and BBQ sauce. ? [place] fruit juices and citrus fruits, such as oranges, olga, and limes. ? Tomato-based foods, such as red sauce, chili, salsa, and pizza with red sauce. ? Fried and fatty foods, such as donuts, bangladeshi fries, potato chips, and high-fat dressings. ? [...] any changes in your symptoms. ??? Take kvaw-cgj-ahrknae and prescription medicines only as told by [...] range between ( 0.0 and 7.0 ) Bollinger #: 0.53 K/uL -- Normal range between ( 0.16 and 1.00 ) Eos #: 0.03 x10(3)/uL -- Normal range between ( 0.00 and 0.80 ) Bollinger %: 9.2 % -- Normal range between [...] verify that HECTORGINA Carranza was seen at [facility] Emergency Department on ,01/08/2019 23:24:10. [...] way. As a healthcare provider, [facility] recommends that you stop smoking. Assistance with quitting is available by contacting 3-810-XRPP-NOW. This is a free resource providing counseling, [...] Electronic Communications Privacy Act 18 U.S.C. ???Sections 3952-6884,?? and contain information intended for the specified [...] computer, smartphone, or tablet. Just go to [employer] to get started. Questions? Call . Acknowledgment [...] Instructions: Emergency Physician: Electronically signed by Drew, [facility] Conversion Assistant Unit Forester Cerner at 02/26/2023 11:12 PM CDT documented in this encounter Plan of Treatment Not on file documented as of this encounter Visit Diagnoses Not on filedocumented in this encounter Care Teams Real Estate Consultant Relationship Specialty Start Date End Date José Miguel Verde MD [address] [place] [address] PCP - General Adolescent Medicine 03/07/23 documented as of this encounter
--- OUTSIDE RECORDS SUMMARY | 2025-06-02 09:50 | XMS_ITS | Encounter Summary ---
Author Organization [employer] ([place], [place], [place], [place]) Address [address] [place] [address] Care Team Providers Care Cable Assembler And Swager Name Role Phone José Miguel Verde MD Primary Care Provider + [phone] Encounter Details Date Type Department Care Team (Late st Contact Info) Description 01/08/2019 Transcribed Document [facility] Family Medicine [address] [place] [address] ProviderNitin MD [address] [id number] Social History Tobacco Use Types Packs/Day Years [...] - Nitin ProviderMD - 01/08/2019 11:23 PM CIRCUS ROUSTABOUT ED Discharge Entered On: 01/08/2019 23:23 EST [...] 01/08/2019 23:23 EST Electronically signed by Drew, [facility] Conversion Coater Brake Linings Cerner at 02/26/2023 11:09 PM CDT documented in this encounter Plan of Treatment Not on file documented as of this encounter Visit Diagnoses Not on filedocumented in this encounter Care Teams Cable Assembler And Swager Relationship Specialty Start Date End Date José Miguel Verde MD [address] [place] [address] PCP - General Adolescent Medicine 03/07/23 documented as of this encounter
--- OUTSIDE RECORDS SUMMARY | 2025-06-02 09:51 | XMS_ITS | Clinical Summary ---
Author Organization [facility] Address [address] [place] [address] Care Team Providers Care Guide Excursion Name Role Phone José Miguel Verde MD Primary Care Provider [phone] Allergies Active Allergy Reactions Criticality Noted Date Comments Ibuprofen Hives 02/15/2019 Penicillins Hives 02/15/2019 Sulfamethoxazole Unknown - Low Severity 024 Trimethoprim Unknown - Low Severity 04/29/2024 Medications alendronate (FOSAMAX) 70 MG/75ML solution Take 70 mg by mouth Every 7 (Seven) Days. Active atenolol (TENORMIN) 50 MG tablet Take 50 mg by mouth Daily. Active atorvastatin (LIPITOR) 10 MG tablet Take 10 mg by mouth Daily. Active cycloSPORINE (RESTASIS) 0.05 % ophthalmic emulsion 1 drop 2 (Two) Times a Day. Active Furosemide (LASIX PO) Take by mouth. Acti ve COLCHICINE PO Take by mouth. A ctive ALPRAZolam (XANAX PO) Take by mouth. Acti ve predniSONE (DELTASONE) 5 MG tablet 04/17//3/2/1 as directed daily for 6 days 21 tablet 9 Active aspirin 81 MG EC tablet Take 1 tablet by mouth Daily. Active oxybutynin XL (DITROPAN-XL) 5 MG 24 hr tablet Take 1 tablet by mouth Daily. Active Famotidine (PEPCID AC PO) Take 1 tablet by mouth. Every 2 days as needed Active Cholecalciferol (Vitamin D-3) 125 MCG (5000 UT) tablet Take 1 tablet by mouth Daily. Active Pancrelipase, Myg-Qhnq-Ldoo, (Creon) 82532-851436 units capsule delayed-release particles capsule Take 2 capsules by mouth 2 (Two) Times a Day. With meals and 1 capsule with each snack swallowing whole. Do not crush chew and or divide Active colestipol (COLESTID) 1 g tablet Take 1 tablet by mouth Daily. Swallowing whole with any liquid. Do not crush chew and or divide as needed Active Cyanocobalamin (B-12 Compliance Injection) 1000 MCG/ML kit Inject 1 mL as directed Every 30 (Thirty) Days. Active Nitroglycerin (NITROSTAT SL) Place 1 tablet under the tongue Daily As Needed. Active baclofen (LIORESAL) 10 MG tablet 1/2-1 tablet tid prn spasm Active cevimeline (EVOXAC) 30 MG capsule TAKE 1 CAPSULE BY MOUTH THREE TIMES DAILY 90 capsule 3 5 Active hydroxychloroqu ine (PLAQUENIL) 200 MG tablet TAKE 1 TABLET BY MOUTH DAILY. 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 RHEUM[facility]OLOGY [address] [address] Nichole Loya, CORRECTIONAL SUPERVISOR LIEUTENANT from Last 3 Months Family History Medical History Relation Name Comments Kidney disease Brother Cancer Father Diabetes Maternal Grandmother Diabetes Mother Heart disease Mother Relation Name Status Comments Brother Father Maternal Grandmother Mother Social History Tobacco Use Types Packs/Day Years [...] with school or training? 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 Not on file Not on file Not on f ile Plan of Treatment Upcoming Encounters Date Type Department Care Team (Late st Contact Info) Description 09/12/2025 1:00 PM EDT Office Visit [facility] RHEUMATOLOGY [address] [address] Nichole Loya APRN [address] [address] Health Maintenance Due Date Last Done Comments TDAP/TD VACCINES (1 - Tdap) 1965 ZOSTER VACCINE (1 of 2) 1996 ANNUAL WELLNESS VISIT 02/15/2019 HEPATITIS C SCREENING 02/15/2019 RSV Vaccine - Adults (1 - 1- dose 75+ series) 2021 COVID-19 Vaccine ( season) 2024 08/11/2021, 01/06/2021, 12/09/2020 INFLUENZA VACCINE 08/13/2025 12/19/2016 DXA SCAN 04/29/2026 04/29/2024 Pneumococcal Vaccine 50+ Completed 01/04/2018, 04/2017 Procedures Procedure Name Priority Date/Time Associated Diagnosis Comments SCANNED - DEXA Routine 04/29/2024 11:39 AM EDT from Last 3 Months or Most Recently Relevant to Health Maintenance Results * DEXA Scan (04/29/2024 11:39 AM EDT) Anatomical Region Laterality Modality Other us Historical Provider MD JAUREGUI CHART REVIEW TABS Kiah l Result from Last 3 Months or Most Recently Relevant to Health Maintenance Insurance MEDICARE A & B Member Subscriber Plan / Payer ( fective 2011-Present) Name:Gina Hector Member ID:[id number] Relation to Subscriber:Self Name:Gina Hector Subscriber ID:[id number] Payer ID:[id number] Group ID:Not on file Type:Not on file Address: [facility] [address] [place] [id number] [facility] Care Teams Guide Excursion Relationship Specialty Start Date End Date José Miguel Verde MD [address] [place] [address] PCP - General Adolescent Medicine 02/15/19
--- OUTSIDE RECORDS SUMMARY | 2025-06-02 09:51 | XMS_ITS | Encounter Summary ---
Author Organization [employer] ([place], [place], [place], [place]) Address [address] [place] [address] Care Team Providers Care Wash Helper Name Role Phone José Miguel Verde MD Primary Care Provider + [phone] Encounter Details Date Type Department Care Team (Late st Contact Info) Description 01/08/2019 Transcribed Document [facility] Family Medicine [address] [place] [address] ProviderNitin MD [address] [place] [address] Social History Tobacco Use Types [...] - Nitin ProviderMD - 01/08/2019 11:21 PM RIM TECHNICIAN Electronically signed by [facility] Conversion City Mail Carrier Jessica at 02/26/2023 11:12 PM CDT documented in this encounter Plan of Treatment Not on file documented as of this encounter Visit Diagnoses Not on filedocumented in this encounter Care Teams Wash Helper Relationship Specialty Start Date End Date José Miguel Verde MD [address] [place] [address] PCP - General Adolescent Medicine 03/07/23 documented as of this encounter
--- OUTSIDE RECORDS SUMMARY | 2025-06-02 09:51 | XMS_ITS | Encounter Summary ---
Author Organization [email or web address] ([place], [place], [place], [place]) Address [address] [place] [address] Care Team Providers Care Advertising Operations Manager Name Role Phone José Miguel Verde MD Primary Care Provider + [phone] Encounter Details Date Type Department Care Team (Late st Contact Info) Description 01/08/2019 Transcribed Document [facility] Family Medicine [address] [place] [address] ProviderNitin MD [address], [place] [id number] Social History Tobacco Use Types Packs/Day Years [...] - Nitin ProviderMD - 01/08/2019 7:04 PM RESTAURANT BUSSER Patient: GINA HECTOR Age: 73 years Sex: [...] noted. Histroy of triple bypass. Dr. preciado tanker driver. . History of Present Illness The patient [...] EST Height Source Stated Height Entry Format [place] Height/Length, RWANDAN (ft) 5 ft Height/Length RWANDAN 2 Inch CLINICALHEIGHT 157.48 cm [place] Body Weight 49.73 kg Weight Source, ED Critical estimated dosing weight Weight Entry Format [place] Weight Stateless lb 230 lb CLINICALWEIGHT 104.55 kg Body [...] 18.0 % LOW Lymph # 1.04 x10(3)/uL Bonner % 9.2 % HI Bonner # 0.53 K/uL Eos % 0.5 % [...] appointment with her primary care doctor and tanker driver for discussion of recent ER visits. Patient [...] following educational materials: Gastroesophageal Reflux Disease, Adult, Ovim-by-Uvgp, Food Choices for Gastroesophageal Reflux Disease, Adult, Aaea-ms-Pfdf, Nonspecific Chest Pain, Ibnh-zt-Lwac. Follow up with: [facility] Within 2 to 3 days For further assistance with your Primary Care Physician please contact the Patient Resource Center at [phone]. Please follow up with Lester Peace.; MELVIN [...] on filedocumented in this encounter Care Teams Advertising Operations Manager Relationship Specialty Start Date End Date José Miguel Verde MD [address] [place] [address] PCP - General Adolescent Medicine 03/07/23 documented as of this encounter
--- OUTSIDE RECORDS SUMMARY | 2025-06-02 09:51 | XMS_ITS | Clinical Summary ---
Author Organization [employer] ([place], [place], [place], [place]) Address [address] [place] [address] Care Team Providers Care Machinist 2Nd Shift Name Role Phone José Miguel Verde MD Primary Care Provider + [phone] Allergies Active Allergy Reactions Criticality Noted Date [...] by mouth in the morning. Active pancrelipase, Nfw-Eanw-Wskj, (CREON) 36,000-114,000 - 180,000 unit CpDR capsule [...] Date Hamilton rded Speak language other than Swedish at home Not on file 12/01/2023 Want [...] 01/04/2018, 2016 Insurance [place]IC[place] [address] [address] SUPP Advance Directives For more information, please contact: [phone] * Full Code (Latest Code Status on File) Date Activated Date Inactivated Comments 03/10/2023 5:00 PM 03/11/2023 12:05 PM * Full Code Date Activated Date Inactivated Comments 03/07/2023 2:51 PM 03/10/2023 5:00 PM Care Teams Machinist 2Nd Shift Relationship Specialty Start Date End Date José Miguel Verde MD [address] [place] [address] PCP - General Adolescent Medicine 03/07/23
--- OUTSIDE RECORDS SUMMARY | 2025-06-02 09:51 | XMS_ITS | Encounter Summary ---
Author Organization [employer] ([place], [place], [place], [place]) Address [address] [place] [address] Care Team Providers Care Warehouse Associate Driver Name Role Phone José Miguel Verde MD Primary Care Provider + [phone] Encounter Details Date Type Department Care Team (Late st Contact Info) Description 07/15/2020 Transcribed Document [facility] [place] Family Medicine [address] [place] [address] ProviderNitin MD [address] [id number] Social History Tobacco Use Types Packs/Day Years [...] 07/15/2020 16:41 EDT Electronically signed by Drew [facility] Conversion Associate Professor Of Communication Cerner at 02/26/2023 11:11 PM CDT documented in this encounter Plan of Treatment Not on file documented as of this encounter Visit Diagnoses Not on filedocumented in this encounter Care Teams Warehouse Associate Driver Relationship Specialty Start Date End Date José Miguel Verde MD [address] [place] [address] PCP - General Adolescent Medicine 03/07/23 documented as of this encounter
--- OUTSIDE RECORDS SUMMARY | 2025-06-02 09:51 | XMS_ITS | Encounter Summary ---
Author Organization [email or web address] ([place], [place], [place], [place]) Address [address] [place] [address] Care Team Providers Care Industrial Hygenist Name Role Phone José Miguel Verde MD Primary Care Provider + [phone] Encounter Details Date Type Department Care Team (Late st Contact Info) Description 01/08/2019 Transcribed Document [facility] Family Medicine [address] [place] [address] ProviderNitin MD [address], [place] [id number] Social History Tobacco Use Types Packs/Day Years [...] - Nitin ProviderMD - 01/08/2019 6:41 PM INSTRUCTIONAL SERVICES SPECIALIST ED Triage Entered On: 01/08/2019 18:57 EST Performed On: 01/08/2019 18:47 EST by Catherine Pugh, TANK CAR LOADER Triage Across the Room Triage Date/Time : 01/08/2019 18:47 EST Chief Complaint : Pt presents to the ER with chest pain that started Monday. Pain was left sided that radiates across chest. Burning in nature. Slight nausea noted. Histroy of triple bypass. Dr. preciado cranberry grower. Catherine Pugh, RN - 01/08/2019 18:47 EST DCP GENERIC CODE Tracking Acuity : 3 - Urgent Tracking Group : [facility] ED Catherine Pugh RN - 01/08/2019 [...] PNED ; Probability: 0 ; Diagnosis Code: [id number] ED Height and Weight Height Source : Stated Height Entry Format : [place] Height, Feet : 5 ft(Converted to: 152 cm, 60 Inch) Height, Inches : 2 Inch(Converted to: 0 ft 2 Inch, 5.08 cm) Clinical Height : 157.48 cm Weight Source, ED : Critical estimated dosing weight Weight Entry Format : [place] Weight, Pounds : 230 lb Clinical Dosing Weight : 104.55 kg Body Surface Area (BSA) : 2.03 m2 Body Mass Index : 42.2 kg/m2 (>HHI) [place] Body Weight (IBW) : 49.73 kg Catherine Pugh RN - 01/08/2019 18:47 EST documented in this encounter Plan of Treatment Not on file documented as of this encounter Visit Diagnoses Not on filedocumented in this encounter Care Teams Industrial Hygenist Relationship Specialty Start Date End Date José Miguel Verde MD [address] [place] [address] PCP - General Adolescent Medicine 03/07/23 documented as of this encounter
--- OUTSIDE RECORDS SUMMARY | 2025-06-02 09:51 | XMS_ITS | Encounter Summary ---
Author Organization [employer] ([place], [place], [place], [place]) Address [address] [place] [address] Care Team Providers Care Casserole Preparer Name Role Phone José Miguel Verde MD Primary Care Provider + [phone] Encounter Details Date Type Department Care Team (Late st Contact Info) Description 07/15/2020 Transcribed Document [facility] Family Medicine [address] [place] [address] ProviderNitin MD [address] [place] [address] Social History Tobacco Use Types [...] Nitin ProviderMD - 07/15/2020 4:16 PM CDT [facility] [place] [address] GINA HECTOR :1945 Visit Time:07/15/2020 Your [...] Within 2 to 3 days Where: [address] Business (1) Allergies ibuprofen (Itching, Itching) [...] range between ( 0.0 and 7.0 ) Noble #: 0.55 K/uL -- Normal range between ( 0.16 and 1.00 ) Eos #: 0.06 x10(3)/uL -- Normal range between ( 0.00 and 0.80 ) Noble %: 9.3 % -- Normal range between [...] safe for you. General instructions ??? Take gbpm-vny-rrhwvvy and prescription medicines only as told by [...] 10/30/2006 Document Revised: 05/02/2019 Document Reviewed: 05/02/2019 [employer] Patient Education ?? 2020 [employer]. Nonspecific Chest Pain, Adult Chest pain can [...] these instructions at home: Medicines ??? Take ynvk-yei-glcbaqk and prescription medicines only as told by [...] 08/09/2006 Document Revised: 05/02/2019 Document Reviewed: 05/02/2019 [employer] Patient Education ?? 2020 [employer] Emergency Awareness and Preventative Care STROKE [...] Assistance with quitting is available by contacting 7-658-UEZQ-NOW. This is a free resource providing counseling, [...] was given the opportunity to ask questions. Patient/Nursing Service Administrator Name: Patient/Nursing Service Administrator Signature: Relationship to Patient: Clinician/Hospital Nursing Service Administrator Signature: Please Provide a Telephone Number Where You Can Be Reached: Is it Permissible To Leave a Message? Date: Electronically signed by Drew [facility] Conversion Pumper Gager Jessica at 02/26/2023 11:01 PM CDT documented in this encounter Plan of Treatment Not on file documented as of this encounter Visit Diagnoses Not on filedocumented in this encounter Care Teams Casserole Preparer Relationship Specialty Start Date End Date José Miguel Verde MD [address] [place] [address] PCP - General Adolescent Medicine 03/07/23 documented as of this encounter
--- OUTSIDE RECORDS SUMMARY | 2025-06-02 09:51 | XMS_ITS | Encounter Summary ---
Author Organization [employer] ([place], [place], [place], [place]) Address [address] [place] [address] Care Team Providers Care Hostess Party Sales Representative Name Role Phone José Miguel Verde MD Primary Care Provider + [phone] Encounter Details Date Type Department Care Team (Late st Contact Info) Description 07/15/2020 Transcribed Document [facility] [place] [address] [place] [address] ProviderNitin MD [address], [place] [id number] Social History Tobacco Use Types Packs/Day Years [...] On: 07/15/2020 11:56 EDT by CARMEN PICKETT, ODD PIECE CHECKER Triage Across the Room Chief Complaint : pt c/o CP for 2 days, hurting in left arm, sharp 10, took NTG yesterday went away, started today took NTH with xanax and now a 4/10, no NVD, Triage Date/Time : 07/15/2020 11:56 EDT CARMEN PICKETT RN - 07/15/2020 11:56 EDT DCP GENERIC CODE Tracking Acuity : 2 - Emergent Tracking Group : [facility] ED CARMEN PICKETT RN - 07/15/2020 11:56 EDT Mode of Arrival : Ambulatory Transported to ED by : Private vehicle To Room Via : Wheelchair Accompanied By : Unaccompanied ED Vital Signs : Document Height & Weight : Document ED Allergies : Document ED Reason for Visit : Document Tetanus Immunization : Unknown Numerical Control Tool Programmer Needed : No CARMEN PICKETT RN - [...] PNED ; Probability: 0 ; Diagnosis Code: [id number] ED Height and Weight Height Source : Stated Height Entry Format : [place] Height, Feet : 5 ft(Converted to: 152 cm, 60 Inch) Height, Inches : 2 Inch(Converted to: 0 ft 2 Inch, 5.08 cm) Clinical Height : 157.48 cm Weight Source, ED : Critical estimated dosing weight Weight Entry Format : [place] Weight, Pounds : 222 lb Clinical Dosing Weight : 100.91 kg Body Surface Area (BSA) : 2 m2 Body Mass Index : 40.7 kg/m2 (>HHI) [place] Body Weight (IBW) : 49.73 kg CARMEN [...] form. Electronically signed by Sarah Russell Conversion Food Bagging Machine Operator Cerner at 02/26/2023 10:55 PM CDT documented in this encounter Plan of Treatment Not on file documented as of this encounter Visit Diagnoses Not on filedocumented in this encounter Care Teams Hostess Party Sales Representative Relationship Specialty Start Date End Date José Miguel Verde MD [address] [place] [address] PCP - General Adolescent Medicine 03/07/23 documented as of this encounter
--- OUTSIDE RECORDS SUMMARY | 2025-06-02 09:51 | XMS_ITS | Encounter Summary ---
Author Organization [employer] ([place], [place], [place], [place]) Address [address] [place] [address] Care Team Providers Care Surg Tech Name Role Phone José Miguel Verde MD Primary Care Provider + [phone] Encounter Details Date Type Department Care Team (Late st Contact Info) Description 07/15/2020 Transcribed Document [facility] [place] Medicine [address] [place] [address] ProviderNitin MD [address] [place] [address] Social History Tobacco Use Types [...] Source Stated Height Entry Format Ber[place] Height/Length, HUNGARIAN (ft) 5 ft Height/Length HUNGARIAN 2 Inch CLINICALHEIGHT 157.48 cm [place] Body Weight 49.73 kg Weight Source, ED Critical estimated dosing weight Weight Entry Format [place] Weight Gabonese lb 222 lb CLINICALWEIGHT 100.91 kg Body [...] Triage: ED C-SSRS: ED Clinical Reconciliation: ED forest pathology professor: EKG: Extra Blue Tube: Extra Gold Tube: Troponin I Ultra: Troponin I Ultra: . tube mill operator: Initial EKG shows normal sinus rhythm with [...] % LOW Lymph # 0.97 x10(3)/uL LOW Treasure % 9.3 % HI Treasure # 0.55 K/uL Eos % 1.0 % Eos # 0.06 x10(3)/uL Baso % 0.5 % Baso # 0.03 x10(3)/uL Slide Review No IG# 0.02 x10(3)/uL IG% 0.30 % . Radiology results: Radiology Results (Last 48 hours) [id number] -- 07/15/2020 11:47 CR Chest 1 Vw [...] on filedocumented in this encounter Care Teams Surg Tech Relationship Specialty Start Date End Date José Miguel Verde MD [address] [place] [address] PCP - General Adolescent Medicine 03/07/23 documented as of this encounter
--- OUTSIDE RECORDS SUMMARY | 2025-06-02 09:51 | XMS_ITS | Encounter Summary ---
Author Organization [employer] ([place], [place], [place], [place]) Address [address] [place] [address] Care Team Providers Care Sand Mill Grinder Name Role Phone José Miguel Verde MD Primary Care Provider + [phone] Encounter Details Date Type Department Care Team (Late st Contact Info) Description 07/15/2020 Transcribed Document [facility] [place] [address] [place] [address] ProviderNitin MD [address] [place] [address] Social History Tobacco Use Types [...] Bueno MD - 07/15/2020 4:34 PM CDT [facility] [place] [address] GINA HECTOR :1945 Visit Time:07/15/2020 Your [...] appointment Where: [address] [place] [address]- Business (1) Follow Up with Follow up with primary care provider When Within 1 to 2 days Comments Take home medications as directed, follow with PCP, return to emergency Department with new or worsening symptoms Follow Up with MELVIN RASCON When Within 2 to 3 days Where: [address] [facility] [address] [place] [address]- Business (1) Allergies ibuprofen (Itching, Itching) [...] range between ( 0.0 and 7.0 ) [place] #: 0.55 K/uL -- Normal range between ( 0.16 and 1.00 ) Eos #: 0.06 x10(3)/uL -- Normal range between ( 0.00 and 0.80 ) [place] %: 9.3 % -- Normal range between [...] safe for you. General instructions ??? Take ecgq-hre-bpwtzsc and prescription medicines only as told by [...] 10/30/2006 Document Revised: 05/02/2019 Document Reviewed: 05/02/2019 [employer] Patient Education ?? 2020 [employer]. Nonspecific Chest Pain, Adult Chest pain can [...] these instructions at home: Medicines ??? Take opld-yld-vpqmxoe and prescription medicines only as told by [...] 08/09/2006 Document Revised: 05/02/2019 Document Reviewed: 05/02/2019 [employer] Patient Education ?? 2020 [employer] Emergency Awareness and Preventative Care STROKE [...] Assistance with quitting is available by contacting 7-585-XWMK-NOW. This is a free resource providing counseling, [...] emergency, radiology, or pathology physicians. Patient Name:GINA HECOTR I have received this information and was given the opportunity to ask questions. Patient/Video Library Assistant Name: Patient/Video Library Assistant Signature: Relationship to Patient: Clinician/Hospital Video Library Assistant Signature: Please Provide a Telephone Number Where You Can Be Reached: Is it Permissible To Leave a Message? Date: Electronically signed by [facility], [facility] Conversion Pet Care Associate Cerner at 02/26/2023 11:06 PM CDT documented in this encounter Plan of Treatment Not on file documented as of this encounter Visit Diagnoses Not on filedocumented in this encounter Care Teams Sand Mill Grinder Relationship Specialty Start Date End Date José Miguel Verde MD [address] [place] [address] PCP - General Adolescent Medicine 03/07/23 documented as of this encounter
--- OUTSIDE RECORDS SUMMARY | 2025-06-02 09:51 | XMS_ITS | Encounter Summary ---
Author Organization [employer] ([place], [place], [place], [place]) Address [address] [place] [address] Care Team Providers Care Broke Beater Operator Name Role Phone José Miguel Verde MD Primary Care Provider + [phone] Encounter Details Date Type Department Care Team (Late st Contact Info) Description 07/15/2020 Transcribed Document [facility] [place] [address] [place] [address] ProviderNitin MD [address] [place], [place] [id number] Social History Tobacco Use Types Packs/Day Years [...] Nitin ProviderMD - 07/15/2020 11:47 AM CDT [place] Suicide Severity Rating Scale (C-SSRS) Entered On: 07/15/2020 12:21 EDT Performed On: 07/15/2020 12:20 EDT by IVORY APPIAH RN [place] Suicide Severity Rating Scale (C-SSRS) CSSRS Past [...] on filedocumented in this encounter Care Teams Broke Beater Operator Relationship Specialty Start Date End Date José Miguel Verde MD [address] [place] [address] PCP - General Adolescent Medicine 03/07/23 documented as of this encounter
--- OUTSIDE RECORDS SUMMARY | 2025-06-02 09:51 | XMS_ITS | Encounter Summary ---
Author Organization [employer] ([place], [place], [place], [place]) Address [address] [place] [address] Care Team Providers Care Retail Store Associate Name Role Phone José Miguel Verde MD Primary Care Provider + [phone] Encounter Details Date Type Department Care Team (Late st Contact Info) Description 07/15/2020 Transcribed Document [facility] Family Medicine [address] [place] [address] ProviderNitin MD [address] [place], [place] [id number] Social History Tobacco Use Types Packs/Day Years [...] Communication Barrier : None Primary Language : Somali Any Spiritual/Cultural Needs or Requests : No [...] - 07/15/2020 12:20 EDT Electronically signed by [facility] Conversion Track Repair Person Cerner at 02/26/2023 11:14 PM CDT documented in this encounter Plan of Treatment Not on file documented as of this encounter Visit Diagnoses Not on filedocumented in this encounter Care Teams Retail Store Associate Relationship Specialty Start Date End Date José Miguel Verde MD [address] [place] [address] PCP - General Adolescent Medicine 03/07/23 documented as of this encounter
--- OUTSIDE RECORDS SUMMARY | 2025-06-02 09:51 | XMS_ITS | Encounter Summary ---
Author Organization [employer] ([place], [place], [place], [place]) Address [address] [place] [address] Care Team Providers Care Roustabout Crew Leader Name Role Phone José Miguel Verde MD Primary Care Provider + [phone] Encounter Details Date Type Department Care Team (Late st Contact Info) Description 07/15/2020 Transcribed Document [facility] [place] [address] [place] [address] ProviderNitin MD [address] [place] [address] Social History Tobacco Use Types [...] on filedocumented in this encounter Care Teams Roustabout Crew Leader Relationship Specialty Start Date End Date José Miguel Verde MD [address] [place] [address] PCP - General Adolescent Medicine 03/07/23 documented as of this encounter
[2025-06-02 09:52] LABS: Hematocrit 36.7 % (37.0-47.0); Hemoglobin 12.4 g/dL (12.2-16.2); Red Blood Count 3.78 M/mm3 (4.20-5.40); White Blood Count 4.0 K/mm3 (4.8-10.8)
[2025-06-02 09:53] LABS: Immature Granulocytes % 0.2 %; Mean Corpuscular HGB Conc 33.8 g/dL (31.8-35.4); Mean Corpuscular Hemoglobin 32.8 pg (27.0-31.2); Mean Corpuscular Volume 97.1 fl (81-99); Nucleated Red Blood Cells % 0 %; Platelet Count 132 K/mm3 (142-424); Red Cell Distribution Width-SD 47.0 fL
[2025-06-02] MEDS: ONDANSETRON 4MG/2ML VIAL 4 MG IV (09:53)
[2025-06-02] MEDS: RINGERS SOLUTION,LACTATED 500 ML 999 ML IV ×3 (09:53→12:28)
[2025-06-02 09:54] LABS: Albumin Level 4.1 g/dl (3.5-5.0); Chloride 104 mmol/L (98-107); Sodium 134 mmol/L (136-145)
[2025-06-02 09:55] LABS: Potassium 3.8 mmoL/L (3.5-5.1)
[2025-06-02 09:57] LABS: Alanine Aminotransferase 20 U/L (12-78); Anion Gap 7.8 mEq/L (5-15); Aspartate Amino Transferase 32 U/L (14-36); Blood Urea Nitrogen 20 mg/dl (7-17); Carbon Dioxide 26 mmol/L (22.0-30.0); Creatinine Clearance Estimated 59 mL/min (50-200); Creatinine,Serum 0.90 mg/dl (0.52-1.04); Estimated Glomerular Filt Rate 61 ml/min (>60); GFR (African American) 73 ML/MIN (>60)
[2025-06-02 09:58] LABS: Albumin/Globulin Ratio 1.9 (1.1-1.8); Alkaline Phosphatase 62 U/L (38-126); Bilirubin,Total 1.8 mg/dl (0.2-1.3); Calcium 9.4 mg/dl (8.4-10.2); Globulin 2.2 g/dL (1.3-3.2); Glucose 109 mg/dl (74-100); Magnesium 1.8 mg/dl (1.6-2.3); Total Protein,Serum 6.3 g/dl (6.3-8.2)
[2025-06-02 10:07] LABS: NT Pro Brain Natriuretic Pep. 513 pg/mL (0-450)
[2025-06-02 10:09] LABS: Troponin I 0.03 ng/ml (0.00-0.034)
[2025-06-02 10:28] LABS: Thyroid Stimulating Hormone 1.04 uIU/mL (0.465-4.68)
[2025-06-02 10:38] LABS: Free T4 (Free Thyroxine) 1.47 ng/dl (0.78-2.19)
--- NOTE | 2025-06-02 11:09 | PC.NURSE ---
assisted pt to and from restroom. no needs at this time
[2025-06-02] MEDS: ACETAMINOPHEN 500MG TAB 1000 MG PO (12:16)
[2025-06-02 12:55] LABS: Troponin I 0.03 ng/ml (0.00-0.034)
--- NOTE | 2025-06-02 13:50 | PC.NURSE ---
FIRE LOSS PREVENTION ENGINEER NOTIFIED OF ADMISSION
--- NOTE | 2025-06-02 14:29 | PC.NURSE ---
arrived by w/c from ED
[2025-06-02 14:55] LABS: Adenovirus,PCR Not Detected (NotDetected); Chlamydophila Pneumoniae, PCR Not Detected (NotDetected); Coronavirus 19, PCR Not Detected (NotDetected); Coronovirus HKU1,PCR Not Detected (NotDetected); Influenza A, PCR Not Detected (NotDetected); Influenza AH1, 2009 Not Detected (NotDetected); Influenza AH1, PCR Not Detected (NotDetected); Influenza AH3,PCR Not Detected (NotDetected); Influenza B, PCR Not Detected (NotDetected); Mycoplasma Pneumoniae, PCR Not Detected (NotDetected); Parainfluenza 1, PCR Not Detected (NotDetected); Parainfluenza 2, PCR Not Detected (NotDetected); Parainfluenza 3, PCR Not Detected (NotDetected); Parainfluenza 4, PCR Not Detected (NotDetected)
--- NOTE | 2025-06-02 15:01 | P.HP_ITS ---
<Statement entered by Yemi Carvalho MD - 06/03/25 12:07> Personally evaluated patient and agree with plan of care as outlined by the SCIENTIFIC LINGUIST. History of Present Illness *Admission Date: 06/02/25 *Reason for visit:: Functional decline, weakness *History of present illness: Ms. Egan is a 79-year-old female who presented to the emergency department today with complaints of epigastric pain, weakness, feelings of unsteadiness. She has a significant medical history of hypertension, hyperlipidemia, cardiac cath with stenting, CABG, rheumatoid arthritis, diverticulitis, GERD, pancreatitis, obesity, anxiety, M?ni?re's, CAD. She called the ambulance and was transported to the ED for further evaluation. Orthostatics were obtained in the emergency room and were positive, patient was admitted for hypovolemia and functional decline. [facility] Disclaimer: The information contained in this section may have been updated after the patient was seen, as this information can be updated by other users. Medical History (Updated 06/02/25 @ 16:56 by Do Gonzales APRN) Anxiety Diverticulitis Pancreatitis Hyperlipidemia Hypertension Rheumatoid arthritis Osteoarthritis Hemorrhoids Heart disease Gout GERD (gastroesophageal reflux disease) Colon polyps Colitis CAD (coronary artery disease) History of blood transfusion Surgical History H/O left wrist surgery History of right hip replacement History of cholecystectomy History of back surgery Hx of CABG H/O right wrist surgery Family History Father Cancer Social History (Updated 06/02/25 @ 14:59 by Rekha Hernández RN) Smoking Status: Never smoker alcohol intake: never substance use type: denies use current occupational status: retired Travel in the last 8 weeks?: None caffeine: Yes Have you lived/traveled outside US in past 30 days?: No Contact w/someone who lives/traveled outside US past 30 days?: No Exposure to someone with infectious disease in past 14 days?: No Do you have a fever (greater than 100.4 F or 38 C)?: No Have you tested positive for COVID-19?: No Exposed to someone with COVID-19 in past 14 days?: No Do you have a sore throat?: No Do you have a cough?: No Do you have any weakness?: No Are you experiencing any nausea/vomitting?: No Do you have any diarrhea?: No Are you experiencing any unusual bleeding?: No Do you have any muscle aches/pain?: No Do you have any abdominal pain?: No Are you experiencing loss of taste or smell?: No Other Medical History Have you received the Flu Vaccine for this season: Yes Have you received the Pneumonia Vaccine: Yes Review of Systems Review of Systems Review of systems:: pertinent systems reviewed and negative unless documented below Constitutional Constitutional: Reports fatigue, Reports poor appetite, Reports lethargy, Reports malaise and Reports weakness ENT Ears, Nose, Mouth, and Throat: Reports dry mouth *Cardiovascular Cardiovascular: Denies chest pain and Reports dyspnea on exertion *Respiratory Respiratory: Reports dyspnea on exertion and Denies wheezing *Gastrointestinal Gastrointestinal: Denies change in bowel habits, Denies diarrhea, Denies hematemesis, Denies hematochezia, Denies loose stools and Denies melena *Genitourinary Genitourinary: Reports urinary incontinence and Denies urinary urgency *Musculoskeletal Musculoskeletal: Reports muscle weakness *Neurologic Neurologic: Reports weakness Psychiatric Psychiatric: Reports anhedonia, Reports anxiety, Reports panic attacks and Denies suicidal ideation Endocrine Endocrine: Reports fatigue Allergic/Immunologic Allergic/Immunologic: Denies wheezing Meds Home Medications and Allergies Home Medications ?Medication ?Instructions ?Recorded ?Confirmed ?Type alprazolam 0.25 mg tablet 0.25 mg PO TIDP PRN Anxiety 01/06/19 06/02/25 History atorvastatin 10 mg tablet (Lipitor) 10 mg PO HS 06/02/25 History cevimeline 30 mg capsule 30 mg PO TID 01/06/19 History colchicine 0.6 mg tablet 0.6 mg PO DAILY 01/06/19 History hydroxychloroquine 200 mg tablet 200 mg PO DAILY 01/0606/02/25 History aspirin 81 mg tablet,delayed 81 mg PO DAILY 01/04/20 0 06/02/25 History release atenolol 50 mg tablet 50 mg PO DAILY 01/04/2005/14 History cyclosporine 0.05 % eye drops in a 1 drp ophthalmic (e ye) DAILY dry 01/04/20 06/02/25 History dropperette (Restasis) eyes cyanocobalamin (vitamin B-12) 1,000 mcg IM MONTHLY 08/0606/02/25 History 1,000 mcg/mL injection solution vonoprazan 20 mg tablet (Voquezna) 20 mg PO DAILY #90 tabs 09/23/24 06/02/25 Rx cholecalciferol (vitamin D3) 125 125 mcg PO DAILY 02/0 04/0606/02/25 History mcg (5,000 unit) capsule furosemide 20 mg tablet 20 mg PO DAILYP PRN Fluid 06/02/25 History vibegron 75 mg tablet (Gemtesa) 75 mg PO DAILY 5 06/02/25 History lkrvtb-uihlhoem-pkugytp 1 cap PO AC 03/26/25 5 History 36,000-114,000-180,000 unit capsule,delay rel (Creon) clopidogrel 75 mg tablet 75 mg PO DAILY 30 days #30 t abs 05/14/25 06/02/25 Rx scopolamine base 1 mg over 3 days 1 patch transdermal Q3D PRN nausea 05/15/25 06/02/25 Rx transdermal patch and vomiting #10 ea isosorbide mononitrate 60 mg 60 mg PO DAILY #30 tabs 0 05/19/25 06/02/25 Rx tablet,extended release 24 hr colestipol 1 gram tablet 1 g PO BID 06/02/25 06/02/25 History iacvxw-pzryfkop-ysozurb 1 cap PO DAILYP PRN WITH SNA CKS UP 06/02/25 06/02/25 History 36,000-114,000-180,000 unit TO 3 TIMES DAILY. capsule,delay rel (Creon) New Prescriptions to Start Prescriptions: Allergies Allergy/AdvReac Type Severity Reaction Status Date / Time Penicillins Allergy Intermediate Rash Verified 05/19/25 11:00 ibuprofen (From Motrin) Allergy Mild Rash Verified 05/19/25 11:00 sulfamethoxazole (From Allergy Unknown Verified 05/19/25 11:00 Bactrim) allergy reaction trimethoprim (From Bactrim) Allergy Unknown Verified 05/19/25 11:00 allergy reaction Exam Data for Last 24 hours Vital signs and Labs for Last 24 Hours: Temp Pulse Resp BP Pulse Ox O2 Del Method 98.4 F 64 14 135/59 L 99 Room Air 06/02/25 14:29 06/02/25 14:29 06/02/25 14:29 06/02/25 14:29 06/02/25 14:29 06/02/25 14:29 Laboratory Results - last 24 hr 06/02/25 09:40: WBC 4.0 L, RBC 3.78 L, Hgb 12.4, Hct 36.7 L, MCV 97.1, MCH 32.8 H, MCHC 33.8, RDW 13.3, Plt Count 132 L, MPV 10.8 H, Neut % (Auto) 73.3, Lymph % (Auto) 15.9, Ransom % (Auto) 10.2 H, Eos % (Auto) 0.2, Baso % (Auto) 0.2, Neut # (Auto) 2.9, Lymph # (Auto) 0.6 L, Ransom # (Auto) 0.4, Eos # (Auto) 0.0, Baso # (Auto) 0.0, Sodium 134 L, Potassium 3.8, Chloride 104, Carbon Dioxide 26, Anion Gap 7.8, BUN 20 H, Creatinine 0.90, Estimated Creat Clear 59, Estimated GFR 61, Est GFR ( Amer) 73, Glucose 109 H, Calcium 9.4, Magnesium 1.8, Total Bilirubin 1.8 H, AST 32, ALT 20, Alkaline Phosphatase 62, Troponin I 0.03, NT-Pro-B Natriuret Pep 513 H, Total Protein 6.3, Albumin 4.1, Globulin 2.2, Albumin/Globulin Ratio 1.9 H, TSH 1.04, Free T4 1.47 06/02/25 12:14: Troponin I 0.03 I & O for Last 24 hours: Intake & Output 05/30/25 05/31/25 06/01/25 06/02/25 23:59 23:59 23:59 23:59 Weight 79.01 kg *Routine HEENT Exam Head: Present normocephalic and atraumatic Eye: Present EOMI and PERRL ENT: Present mucous membranes moist and oropharynx clear *Routine Neck Exam Neck: Present supple and full ROM *Routine Respiratory Exam Respiratory: Present CTA bilaterally, normal respiratory effort, able to speak in complete sentences and symmetric chest movement; Absent accessory muscle use or respiratory distress *Routine Cardiovascular Exam Cardiovascular: Present RRR, Normal S1, Normal S2 and bradycardia *Routine Abdominal Exam Abdominal: Present soft, normoactive bowel sounds and obese; Absent tenderness or distended *Routine Rectal Exam Rectal:: deferred *Routine Genitalia Exam Genitalia:: deferred *Routine Extremities Exam Extremities: Present full ROM, pulses intact and normal capillary refill; Absent edema *Routine Skin Exam Skin: Present dry and warm *Routine Neurological Exam Neurological: Present alert, oriented X3 and CN II-XII intact Assessment and Plan *Assessment and plan (1) Depression: Status: Acute Category: Medical Code(s): F32.A - Depression, unspecified (2) Anxiety: Status: Acute Category: Medical Code(s): F41.9 - Anxiety disorder, unspecified (3) Functional assessment declined: Status: Acute Category: Medical Code(s): Z53.20 - Procedure and treatment not carried out because of patient's decision for unspecified reasons (4) Light-headedness: Status: Acute Category: Medical Code(s): R42 - Dizziness and giddiness (5) Orthostasis: Status: Acute Category: Medical Code(s): I95.1 - Orthostatic hypotension (6) Hyperlipidemia: Status: Acute Qualifiers: Hyperlipidemia type: other hyperlipidemia Qualified Code(s): E78.49 - Other hyperlipidemia Category: Medical Code(s): E78.5 - Hyperlipidemia, unspecified (7) Hypertension: Status: Acute Qualifiers: Hypertension type: primary hypertension Qualified Code(s): I10 - Essential (primary) hypertension Category: Medical Code(s): I10 - Essential (primary) hypertension (8) Class 2 obesity: Status: Chronic Category: Medical Code(s): E66.812 - Obesity, class 2 (9) GERD (gastroesophageal reflux disease): Status: Acute Qualifiers: Esophagitis presence: without esophagitis Qualified Code(s): K21.9 - Gastro-esophageal reflux disease without esophagitis Category: Medical Code(s): K21.9 - Gastro-esophageal reflux disease without esophagitis Plan Ms. Hector is a 79-year-old female presented to the emergency department today with feelings of weakness, intermittent shortness of breath with exertion, epigastric pain (unchanged from baseline). She called the ambulance for transport to the emergency department where she was worked up and found to be hypovolemic. She received 1.5 L of intravenous hydration. Discussed with ED physician patient being discharged home, patient states she feels uncomfortable going home alone. Patient was recently admitted to the hospital and home health was recommended, patient declined at that time. I discussed this case with the emergency room physician and decision was made for admission for further PT/OT evaluation and monitoring of her orthostatic hypotension. Plan of care as follows: #Depression #Anxiety ?Assessment of patient reveals feelings of depression and anxiety. She states that she has a longstanding history of anxiety, she currently takes Xanax 0.25 3 times daily as needed. She was recently seen in the cardiology office and referred to behavioral health but has not been to the appointment. She endorses feelings of sadness, inability to want to get out of bed, functional decline. She states that she has not been driving like she used to, that she has trouble going into stores or places in public, and that this has been a struggle for her for a good while. ?Discussed in depth with patient about a maintenance medication for her feelings of anxiety and depression. Consulted behavioral health for further evaluation. Patient states she is open to speaking with them. #Functional assessment decline #Lightheadedness #Orthostasis ?PT/OT evaluation ordered. Was recently admitted to the hospital and home health was recommended for her, but she declined. Patient states she has been feeling more weak and unsteady. Patient ambulated to the bathroom with her cane but was very weak and unsteady. ?Patient was positive orthostatic blood pressures in the ED, after 1.5 L of fluid orthostatic blood pressures were normal. ?Patient was prescribed scopolamine patches as needed for her M?ni?re's. She states she has not been using them. Scopolamine patches ordered. ?UA ordered to rule out urinary tract infection, no leukocytosis, no anemia, no electrolyte dysfunction, TSH 1.04. Troponins negative. ?Chest x-ray personally reviewed by myself shows no acute findings. Does have a previous history of CABG noted on chest x-ray. #Hyperlipidemia #Hypertension ?Patient was recently increased from isosorbide 30 mg daily to isosorbide 60 mg daily. This may play a role in her weakness and decline. Will restart isosorbide at 30 mg. ?Restart atenolol 50 mg daily. ?Patient had cardiac stent placed on 05/14/2025, continue Plavix and aspirin. #Class II obesity ?Patient BMI 35, obesity complicates all aspects of care. #GERD ?Patient does not take any medication for GERD. She has chronic epigastric abdominal pain. Will start Protonix twice daily. Full code PT/OT eval Lovenox VTE Regular diet
[2025-06-02 17:00] LABS: Troponin I 0.03 ng/ml (0.00-0.034)
[2025-06-02] MEDS: [UNRECOGNIZED DRUG - OTHER] 1 EACH PO (17:09)
[2025-06-02] MEDS: SCOPOLAMINE 1.5MG/72HRS PATCH 1 EACH TD (17:09)
[2025-06-02 19:54] LABS: Microscopic, Urine URINE MICROSCOPIC (MICROSCOPIC)
[2025-06-02] MEDS: COLESTIPOL 1 GM 1 EACH PO (20:22)
[2025-06-02] MEDS: SODIUM CHLORIDE 0.9% 10ML VIAL 10 ML IV (20:22)
[2025-06-02] MEDS: PANTOPRAZOLE 40MG VIAL 40 MG IV (20:22)
[2025-06-02] MEDS: CEVIMELINE 30 MG 30 EACH PO (20:22)
[2025-06-02] MEDS: ATORVASTATIN 10 MG PO (20:23)
[2025-06-02 21:11] LABS: Bilirubin,Urine Negative (Negative); Color,Urine YELLOW (Yellow); Glucose,Urine (UA) Negative (Negative); Ketones,Urine Negative (Negative); Leukocyte Esterase,Urine 3+ (Negative); PH,Urine 7.0 (5.0-8.5); Protein,Urine 1+ (Negative); Specific Gravity, Urine 1.010 (1.005-1.030); Urobilinogen,Urine 0.2 EU/dl (0.2)
[2025-06-02 21:16] LABS: Bacteria,Urine 1+ /lpf; WBC,Urine 20-50 #/hpf (0-3)
--- NOTE | 2025-06-02 21:38 | EXP.EVENT.NO ---
Patient urinalysis showed positive +3 leukocyte, awaiting culture result. Will start on Rocephin 1 g daily IV. Patient has an allergy to amoxicillin from years ago she said it broke around in a rash after being on it for a long period of time. .
[2025-06-02] MEDS: CEFTRIAXONE 1 GM 1 GM in 0.9 % SODIUM CHLORIDE 50 ML IV (22:08)
[2025-06-03 00:07] VITALS: BP 122/45; PULSE 65; RESP 15; TEMP 36.7; O2SAT 98
[2025-06-03 03:47] VITALS: BP 123/52; PULSE 60; RESP 17; TEMP 36.7; O2SAT 99; BMI 34.8
--- NOTE | 2025-06-03 03:49 | PC.NURSE ---
Linen bags & trash bags taken out, ice filled , bedside table organized and cleaned. Pt does not need anything at this time. [id number]
--- NOTE | 2025-06-03 03:51 | PC.NURSE ---
Alert and oriented. Ambulates to the restroom with standby assist. Patient has had no complaints of dizziness this shift. Started IV antibiotics this shift. Room air. Generalized nonpitting edema noted. Call light in reach. bed alarm on.
--- NOTE | 2025-06-03 06:18 | PC.NURSE ---
Brought patient to and from bathroom. 250 ml of urine was charted. Patient does not need anything else at this time.
[2025-06-03] MEDS: [UNRECOGNIZED DRUG - OTHER] 1 EACH PO ×2 (06:32→11:16)
[2025-06-03 08:00] VITALS: BP 133/59; PULSE 63; RESP 20; TEMP 36.8; O2SAT 99
[2025-06-03] MEDS: CYCLOSPORINE 1 EACH OP (09:00)
[2025-06-03] MEDS: ASPIRIN EC 81MG TABLET 81 MG PO (09:09)
[2025-06-03] MEDS: PAT OWN MED ***CLOPIDOGREL 75MG 75 MG PO (09:10)
[2025-06-03] MEDS: CEVIMELINE 30 MG 30 EACH PO ×2 (09:12→13:09)
[2025-06-03] MEDS: VIBEGRON 75 MG 75 EACH PO (09:13)
[2025-06-03] MEDS: COLESTIPOL 1 GM 1 EACH PO (09:14)
[2025-06-03] MEDS: VONOPRAZAN 20 MG 20 EACH PO (09:14)
[2025-06-03] MEDS: COLCHICINE 0.6 MG PO (09:15)
[2025-06-03] MEDS: ATENOLOL 50 MG PO (09:16)
--- NOTE | 2025-06-03 10:45 | SW/DCPLANNER ---
Addendum entered by Randi Butt 06/03/25 11:31: Correction, Pt reccomended home health. Care management will set up out patient. Original Note: Spoke with patient regarding discharge plans. PT recommended placement, patient refused. Patient stated she perfered out patient at hospital but claims she misses many appointments due to anxiety. Will follow up with patient.
--- NOTE | 2025-06-03 10:51 | HMH.PTEV ---
Physical Therapy Evaluation Rehab PT IP Evaluation Start: 06/02/25 16:38 Freq: ONCE Status: Active Protocol: Document 06/03/25 09:00 LIBRADO (Rec: 06/03/25 10:51 LIBRADO [id number]) Subjective/History History History 79-year-old female who presented to the emergency department today with complaints of epigastric pain, weakness, feelings of unsteadiness. She has a significant medical history of hypertension, hyperlipidemia, cardiac cath with stenting, CABG, rheumatoid arthritis, diverticulitis, GERD, pancreatitis, obesity, anxiety, M?ni?re's, CAD. She called the ambulance and was transported to the ED for further evaluation. Orthostatics were obtained in the emergency room and were positive, patient was admitted for hypovolemia and functional decline. Pt reports she lives alone, no ALETHA the home, and she is generally independent with all mobility using a cane for assistance. Subjective Subjective Pt reports feeling mildly dizzy at this time, but much better than she did upon admission. She agrees to mobility assessment. [facility] How much help from another person do you currently need... Turning from your None back to your side while in a flat bed without using bedrails? Moving from lying on None back to sitting on the side of a flat bed without using bedrails? Moving to and from a None bed to a chair ( including a wheelchair)? Standing up from a None chair using your arms? (e.g., wheelchair, bedside chair) Walking in hospital None room? Climbing 3-5 steps A little with a railing? Mobility Score 23 Mobility Level [facility] Mobility 7 Walk 25 feet or more Mobility Calculator Rehab PT IP Eval Objective Appearance Patient Behavior Appropriate Patient Orientation Person,Place,Time Difficulty following none instructions Speech Pattern Clear Ambulation Patient Able to Yes Ambulate Ambulation Observation IP General Gait Shuffling Step Pattern Observation Ambulation Distance 30 (feet) Ambulation Assistive Straight Cane Device Ambulation Ability Independent Balance Ability to Arise Able, uses arms to help Sitting Balance Steady, safe Standing Balance Steady, wide stance Dynamic Sitting Good Balance Ability Dynamic Standing Fair Balance Ability Transfers Bed Transfer Ability Supervision/Stand by Chair Transfer Supervision/Stand by Ability Sit to Stand Bed Supervision/Stand by Transfer Ability Sit to Stand Chair Supervision/Stand by Transfer Ability Rehab PT IP prob,goals,plan Problems Date of Evaluation: 06/03/25 Discharge Plan PT Discharge Plan Pt currently appears to be safe to return home once medically stable for d/c. Skilled acute therapy services are not indicated at this time. Recommend home health therapy after return home. Eval Complexity Eval Charge Codes 34116 - High Complexity PHYSICIAN CERTIFICATION: I certify the specified therapy services for Gina Hetcor are required, authorized, and reviewed every 30 days.
--- NOTE | 2025-06-03 11:07 | P.DS_ITS ---
<Statement entered by Huy Gallegos MD - 06/03/25 15:49> Rounded on patient after nurse practitioner. Personally examined and interviewed patient. Agree with exam findings and care plan as documented. General Admission date:: 06/02/25 Discharge date: 06/03/25 HPI HPI HPI: Ms. Egan is a 79-year-old female who presented to the emergency department today with complaints of epigastric pain, weakness, feelings of unsteadiness. She has a significant medical history of hypertension, hyperlipidemia, cardiac cath with stenting, CABG, rheumatoid arthritis, diverticulitis, GERD, pancrea titis, obesity, anxiety, M?ni?re's, CAD. She called the ambulance and was transported to the ED for further evaluation. Orthostatics were obtained in the emergency room and were positive, patient was admitted for hypovolemia and functional decline. Hospital Course Hospital Course Hospital Course: Ms. Hector is a 79-year-old female presented to the emergency department today with feelings of weakness, intermittent shortness of breath with exertion, epigastric pain (unchanged from baseline). She called the ambulance for transport to the emergency department where she was worked up and found to be hypovolemic. She received 1.5 L of intravenous hydration. Discussed with ED physician patient being discharged home, patient states she feels uncomfortable going home alone. Patient was recently admitted to the hospital and home health was recommended, patient declined at that time. I discussed this case with the emergency room physician and decision was made for admission for further PT/OT evaluation and monitoring of her orthostatic hypotension. Plan of care as follows: #Depression #Anxiety ?Assessment of patient reveals feelings of depression and anxiety. She states that she has a longstanding history of anxiety, she currently takes Xanax 0.25 3 times daily as needed. She was recently seen in the cardiology office and referred to behavioral health but has not been to the appointment. She endorses feelings of sadness, inability to want to get out of bed, functional decline. She states that she has not been driving like she used to, that she has trouble going into stores or places in public, and that this has been a struggle for her for a good while. ?Discussed in depth with patient about a maintenance medication for her feelings of anxiety and depression. ?Patient was seen by behavioral health today, she has a follow-up appointment on June 10. Has no SI. Per the recommendation she we will start Zoloft 25 mg daily. #Functional assessment decline #Lightheadedness #Orthostasis #Functional decline #Weakness ?PT/OT evaluation ordered. Was recently admitted to the hospital and home health was recommended for her, but she declined. Patient states she has been feeling more weak and unsteady. Patient ambulated to the bathroom with her cane but was very weak and unsteady. Physical therapy states that she did well, was able to move independently with her cane. She did not endorse feelings of weakness or unsteadiness during evaluation. ?Patient will follow-up with outpatient physical therapy ordered prior to discharge. ?Patient was positive orthostatic blood pressures in the ED, after 1.5 L of fluid orthostatic blood pressures were normal. Blood pressures have remained normal overnight decreasing isosorbide from 60 mg to 30 mg daily. Follow-up with cardiology for further evaluation of blood pressures. ?Patient was prescribed scopolamine patches as needed for her M?ni?re's. She states she has not been using them. Scopolamine patches ordered. She has been wearing the scopolamine patch since admission, states that her lightheadedness/dizziness is better. Patient has scopolamine patches at home to use as needed. ?Chest x-ray personally reviewed by myself shows no acute findings. Does have a previous history of CABG noted on chest x-ray. #Urinary tract infection ?Urinalysis shows 1+ protein, 2+ blood, 3+ leuk esterase, 20-50 urine WBC. Patient received 1 g Rocephin IV, will be discharged with Macrobid 100 mg twice daily x 5 days. Discussed with patient the need for follow-up urinalysis outpatient. Culture pending, will follow-up with patient if antibiotic insufficient. #Hyperlipidemia #Hypertension ?Patient was recently increased from isosorbide 30 mg daily to isosorbide 60 mg daily. This may play a role in her weakness and decline. Will restart isosorbide at 30 mg, plans to continue isosorbide 30 mg at [place]. ? Continue atenolol 50 mg daily. ?Patient had cardiac stent placed on 05/14/2025, continue Plavix and aspirin. ?Patient currently takes atorvastatin 10 mg daily, was recommended by cardiology to increase to atorvastatin 20 mg daily. Sent to pharmacy at discharge. #Class II obesity ?Patient BMI 35, obesity complicates all aspects of care. #GERD ?Continue Victoza at discharge. Total time spent on discharge 44 minutes in counseling, documentation, chart review, and direct care with patient. Exam Data for Last 24 hours Vital signs and Labs for Last 24 Hours: Temp Pulse Resp BP Pulse Ox O2 Del Method 98.3 F 63 20 133/59 L 99 Room Air 06/03/25 08:00 06/03/25 08:00 06/03/25 08:00 06/03/25 08:00 06/03/25 08:00 06/03/25 09:00 Laboratory Results - last 24 hr 06/02/25 12:14: Troponin I 0.03 06/02/25 14:48: Chlamy pneumoniae PCR Not detected, Adenovirus (PCR) Not detected, B. pertussis DNA (PCR) Not detected, Coronavirus OC43 (PCR) Not detected, Coronavirus HKU1 (PCR) Not detected, Coronavirus 229E (PCR) Not detected, SARS-CoV-2 (PCR) Not detected, Coronavirus NL63 (PCR) Not detected, Human Metapneumovir PCR Not detected, Influenza A (H1) PCR Not detected, Influ A (H1N1/09) PCR Not detected, Influenza A (H3) PCR Not detected, Influenza Type A (PCR) Not detected, Influenza Type B (PCR) Not detected, M. pneumoniae (PCR) Not detected, Parainfluenza 1 (PCR) Not detected, Parainfluenza 2 (PCR) Not detected, Parainfluenza 3 (PCR) Not detected, Parainfluenza 4 (PCR) Not detected, RSV (PCR) Not detected, Entero/Rhino (PCR) Not detected 06/02/25 16:17: Troponin I 0.03 06/02/25 19:30: Urine Color Yellow, Urine Appearance Clear, Urine pH 7.0, Ur Specific [place] 1.010, Urine Protein 1+ A, Urine Glucose (UA) Negative, Urine Ketones Negative, Urine Blood 2+ A, Urine Nitrate Negative, Urine Bilirubin Negative, Urine Urobilinogen 0.2, Ur Leukocyte Esterase 3+ A, Urine RBC 10-20, Urine WBC 20-50, Ur Squamous Epith Cells 5-10, Urine Bacteria 1+ I & O for Last 24 hours: Intake & Output 07/19/06/01/25 06/02/25 06/03/25 23:59 23:59 23:59 23:59 Intake Total 200 / 430 470 / 470 Output Total 905 / 905 800 / 800 Balance -705 / -475 -330 / -330 Weight 79.01 kg 78.381 kg Constitutional Constitutional: no acute distress, obese, chronically ill appearing and cooperative *Routine HEENT Exam Head: Present normocephalic Eye: Present EOMI and PERRL ENT: Present mucous membranes moist *Routine Neck Exam Neck: Present supple; Absent lymphadenopathy *Routine Respiratory Exam Respiratory: Present CTA bilaterally; Absent rhonchi, wheezes or crackles *Routine Cardiovascular Exam Cardiovascular: Present RRR *Routine Abdominal Exam Abdominal: Present soft and normoactive bowel sounds; Absent tenderness *Routine Rectal Exam Patient deferred: visual exam *Routine Exam Patient deferred: external exam *Routine Extremities Exam Extremities: Absent cyanosis or clubbing Comments: Lipedema in arms and legs *Routine Skin Exam Skin: Present intact and warm; Absent rash *Routine Neurological Exam Neurological: Present alert, oriented X3 and moving all extremities; Absent altered mental status Results Data Completed and Pending Labs on day of discharge: Labs from last 24 hours 06/02/25 06/02/25 06/02/25 19:30 16:17 14:48 Troponin I 0.03 Urine Color Yellow Urine Appearance Clear Urine pH 7.0 Ur Specific [place] 1.010 Urine Protein 1+ A Urine Glucose (UA) Negative Urine Ketones Negative Urine Blood 2+ A Urine Nitrate Negative Urine Bilirubin Negative Urine Urobilinogen 0.2 Ur Leukocyte Esterase 3+ A Urine RBC 10-20 Urine WBC 20-50 Ur Squamous Epith Cells 5-10 Urine Bacteria 1+ Chlamy pneumoniae PCR Not detected Adenovirus (PCR) Not detected B. pertussis DNA (PCR) Not detected Coronavirus OC43 (PCR) Not detected Coronavirus HKU1 (PCR) Not detected Coronavirus 229E (PCR) Not detected SARS-CoV-2 (PCR) Not detected Coronavirus NL63 (PCR) Not detected Human Metapneumovir PCR Not detected Influenza A (H1) PCR Not detected Influ A (H1N1/09) PCR Not detected Influenza A (H3) PCR Not detected Influenza Type A (PCR) Not detected Influenza Type B (PCR) Not detected M. pneumoniae (PCR) Not detected Parainfluenza 1 (PCR) Not detected Parainfluenza 2 (PCR) Not detected Parainfluenza 3 (PCR) Not detected Parainfluenza 4 (PCR) Not detected RSV (PCR) Not detected Entero/Rhino (PCR) Not detected 06/02/25 12:14 Troponin I 0.03 Urine Color Urine Appearance Urine pH Ur Specific [place] Urine Protein Urine Glucose (UA) Urine Ketones Urine Blood Urine Nitrate Urine Bilirubin Urine Urobilinogen Ur Leukocyte Esterase Urine RBC Urine WBC Ur Squamous Epith Cells Urine Bacteria Chlamy pneumoniae PCR Adenovirus (PCR) B. pertussis DNA (PCR) Coronavirus OC43 (PCR) Coronavirus HKU1 (PCR) Coronavirus 229E (PCR) SARS-CoV-2 (PCR) Coronavirus NL63 (PCR) Human Metapneumovir PCR Influenza A (H1) PCR Influ A (H1N1/09) PCR Influenza A (H3) PCR Influenza Type A (PCR) Influenza Type B (PCR) M. pneumoniae (PCR) Parainfluenza 1 (PCR) Parainfluenza 2 (PCR) Parainfluenza 3 (PCR) Parainfluenza 4 (PCR) RSV (PCR) Entero/Rhino (PCR) DS: Diagnosis Discharge Diagnosis (1) Depression: Status: Acute Code(s): F32.A - Depression, unspecified (2) Anxiety: Status: Acute Code(s): F41.9 - Anxiety disorder, unspecified (3) Functional assessment declined: Status: Acute Code(s): Z53.20 - Procedure and treatment not carried out because of patient's decision for unspecified reasons (4) Light-headedness: Status: Acute Code(s): R42 - Dizziness and giddiness (5) Orthostasis: Status: Acute Code(s): I95.1 - Orthostatic hypotension (6) Hyperlipidemia: Status: Acute Code(s): E78.5 - Hyperlipidemia, unspecified Qualifiers: Hyperlipidemia type: other hyperlipidemia Qualified Code(s): E78.49 - Other hyperlipidemia (7) Hypertension: Status: Acute Code(s): I10 - Essential (primary) hypertension Qualifiers: Hypertension type: primary hypertension Qualified Code(s): I10 - Essential (primary) hypertension (8) Class 2 obesity: Status: Chronic Code(s): E66.812 - Obesity, class 2 (9) GERD (gastroesophageal reflux disease): Status: Acute Code(s): K21.9 - Gastro-esophageal reflux disease without esophagitis Qualifiers: Esophagitis presence: without esophagitis Qualified Code(s): K21.9 - Gastro-esophageal reflux disease without esophagitis (10) Urinary tract infection: Status: Acute Code(s): N39.0 - Urinary tract infection, site not specified Qualifiers: Hematuria presence: without hematuria Urinary tract infection type: acute cystitis Qualified Code(s): N30.00 - Acute cystitis without hematuria (11) Weakness: Status: Acute Code(s): R53.1 - Weakness (12) Declining functional status: Status: Acute Code(s): R53.81 - Other malaise Meds Home Medications and Allergies Home Medications ?Medication ?Instructions ?Recorded ?Confirmed ?Type alprazolam 0.25 mg tablet 0.25 mg PO TIDP PRN Anxiety 01/06/19 06/02/25 History cevimeline 30 mg capsule 30 mg PO TID 01/06/19 History colchicine 0.6 mg tablet 0.6 mg PO DAILY 01/06/19 History hydroxychloroquine 200 mg tablet 200 mg PO DAILY 01/0606/02/25 History aspirin 81 mg tablet,delayed 81 mg PO DAILY 01/04/20 0 06/02/25 History release atenolol 50 mg tablet 50 mg PO DAILY 01/04/2005/14 History cyclosporine 0.05 % eye drops in a 1 drp ophthalmic (e ye) DAILY dry 01/04/20 06/02/25 History dropperette (Restasis) eyes cyanocobalamin (vitamin B-12) 1,000 mcg IM MONTHLY 08/0606/02/25 History 1,000 mcg/mL injection solution vonoprazan 20 mg tablet (Voquezna) 20 mg PO DAILY #90 tabs 09/23/24 06/02/25 Rx cholecalciferol (vitamin D3) 125 125 mcg PO DAILY 04/0606/02/25 History mcg (5,000 unit) capsule furosemide 20 mg tablet 20 mg PO DAILYP PRN Fluid 06/02/25 History vibegron 75 mg tablet (Gemtesa) 75 mg PO DAILY 06/02/25 History isqwqs-tgviwhfi-irttgdr 1 cap PO AC 03/26/25 5 History 36,000-114,000-180,000 unit capsule,delay rel (Creon) scopolamine base 1 mg over 3 days 1 patch transdermal Q3D PRN nausea 05/15/25 06/02/25 Rx transdermal patch and vomiting #10 ea colestipol 1 gram tablet 1 g PO BID 06/02/25 06/02/25 History qmtpmm-hlmgovma-xsatycr 1 cap PO DAILYP PRN WITH SNA CKS UP 06/02/25 06/02/25 History 36,000-114,000-180,000 unit TO 3 TIMES DAILY. capsule,delay rel (Creon) atorvastatin 20 mg tablet (Lipitor) 20 mg PO HS #30 ta bs 06/03/25 Rx clopidogrel 75 mg tablet 75 mg PO DAILY 30 days #30 t abs 06/03/25 06/02/25 Rx clopidogrel 75 mg tablet (Plavix) 75 mg PO DAILY #30 t abs 06/03/25 Rx isosorbide mononitrate 30 mg 30 mg PO DAILY #30 tabs 0 06/03/25 Rx tablet,extended release 24 hr nitrofurantoin 100 mg PO Q12H 5 days #10 ca ps 06/03/25 Rx monohydrate/macrocrystals 100 mg capsule (Macrobid) sertraline 25 mg tablet (Zoloft) 25 mg PO DAILY #30 ta bs 06/03/25 Rx New Prescriptions to Start Prescriptions: atorvastatin [Lipitor] Do Gonzales clopidogrel [Plavix] Do Gonzales isosorbide mononitrate Do Gonzales nitrofurantoin monohyd/m-cryst [Macrobid] Do Gonzales sertraline [Zoloft] Do Gonzales Allergies Allergy/AdvReac Type Severity Reaction Status Date / Time Penicillins Allergy Intermediate Rash Verified 05/19/25 11:00 ibuprofen (From Motrin) Allergy Mild Rash Verified 05/19/25 11:00 sulfamethoxazole (From Allergy Unknown Verified 05/19/25 11:00 Bactrim) allergy reaction trimethoprim (From Bactrim) Allergy Unknown Verified 05/19/25 11:00 allergy reaction Discharge Plan Disposition Patient Disposition: Home, Self-Care Condition: Fair Follow up Plan Follow up with: Nayeli Briceno APRN [Nurse Practitioner, Behavioral Health] - 06/10/25 1:30 pm Referral Note: Catherine Saha APRN [Nurse Practitioner, Medical] - 06/09/25 3:45 pm Prescriptions/Medication Reconciliation: New atorvastatin [Lipitor] 20 mg tablet 20 mg PO HS Qty: 30 1RF nitrofurantoin monohyd/m-cryst [Macrobid] 100 mg capsule 100 mg PO Q12H 5 Days Qty: 10 0RF Rx Instructions: must administer with a meal/food isosorbide mononitrate 30 mg tablet extended release 24 hr 30 mg PO DAILY Qty: 30 1RF clopidogrel [Plavix] 75 mg tablet 75 mg PO DAILY Qty: 30 1RF sertraline [Zoloft] 25 mg tablet 25 mg PO DAILY Qty: 30 0RF Continued Gemtesa 75 mg tablet 75 mg PO DAILY cholecalciferol (vitamin D3) 125 mcg (5,000 unit) capsule 125 mcg PO DAILY Voquezna 20 mg tablet 20 mg PO DAILY Qty: 90 3RF cyanocobalamin (vitamin B-12) 1,000 mcg/mL solution 1,000 mcg IM MONTHLY alprazolam 0.25 MG tablet 0.25 mg PO TIDP PRN (Reason: Anxiety) cevimeline 30 MG capsule 30 mg PO TID hydroxychloroquine 200 MG tablet 200 mg PO DAILY Patient Comments: 1 a day. 2 the next day colchicine 0.6 MG tablet 0.6 mg PO DAILY scopolamine base 1 mg over 3 days patch 3 day 1 patch transdermal Q3D PRN (Reason: nausea and vomiting) Qty: 10 1RF aspirin 81 MG tablet,delayed release (DR/EC) 81 mg PO DAILY atenolol 50 MG tablet 50 mg PO DAILY cyclosporine [Restasis] 1 EACH dropperette 1 drp ophthalmic (eye) DAILY furosemide 20 mg tablet 20 mg PO DAILYP PRN (Reason: Fluid) Creon 36,000-114,000- 180,000 unit capsule,delayed release(DR/EC) 1 cap PO AC Rx Instructions: Take 1 capsule by mouth before meals/snacks max 6XD colestipol 1 gram tablet 1 g PO BID Creon 36,000-114,000- 180,000 unit capsule,delayed release(DR/EC) 1 cap PO DAILYP PRN (Reason: WITH SNACKS UP TO 3 TIMES DAILY.) clopidogrel 75 mg Tablet 75 mg PO DAILY 30 Days Qty: 30 1RF Discontinued isosorbide mononitrate 60 mg tablet extended release 24 hr 60 mg PO DAILY Qty: 30 2RF atorvastatin [Lipitor] 10 MG tablet 10 mg PO HS Other Ambulatory Orders: Rehab Eval, OP (Routine) Timeframe: 2 Weeks Facility: [facility] - Location: Physical Therapy Ordered By: Do Gonzales Problem Reconciliation Problems Reviewed?: Yes Patient Discharge Instructions ACTIVITY: Continue current activity DIET: continue same diet Patient Instructions: Combating Dizziness in Older Adults, DI for Depression -- Adult, DI for Urinary Tract Infection (UTI), DI for Dizziness-Nonvertigo, Stop Light Infection Print Language: Azeri Providers Primary Care Provider: José Miguel Verde Admumer Provider: Yemi Carvalho Attending Provider: Yemi Carvalho
--- NOTE | 2025-06-03 16:15 | EXP.BH.CONS ---
History of Present Illness *Admission Date: 06/02/25 *History of present illness: Behavioral health consulted on patient for increased anxiety. Patient states that she has always had anxiety and she has always just dealt with it however, she feels that now she is having more issues with her symptoms and feels like they are in control of her now.Patient states that she feels like she is having to depend on her friends more now than she has in the past. Patient states that she is having more issues after her heart cath earlier this month. Patient states that she also has worsening depression. Patient states her anxiety and depression started after her son passed when he was 18 years old and after her passed 2 years ago from cancer. Patient states that she has increased anxiety about going in public to the point that she will have urgency to have a bowel movement when in the line to check out at the store. Patient states that she also gets anxious driving in [place] and will call to cancel her appointments with doctors because she is so anxious. Patient has tried celexa and wellbutrin in the past that did not work for her. Patient has a follow up scheduled in 1 week with behavioral health. Patient denies any issues with sleep and any suicidal or homicidal ideation. MENTAL STATUS EXAM: IN THE HOSPITAL TODAY MOOD: Patient is calm, cooperative, and engaged in the consult today. ANXIETY: Patient reports crippling anxiety APPEARANCE: Patient is normal in appearance with age appropriate dress and grooming and appears to be stated age. APPETITE: No issues with appetite. No significant weight loss or weight gain. ENERGY: Energy is normal. CONCENTRATION: WNL IRRITABILITY: denies AFFECT: Full-range. THOUGHT CONTENT AND PROCESS: Hallucinations and delusions are denied and behavior is generally appropriate. Associations are intact, thinking is basically logical and thought content is appropriate. There are no signs of cognitive difficulty, based on vocabulary and fund of knowledge. SPEECH: Speech is normal in rate, volume, and articulation and language skills are intact. PSYCHOMOTOR: There is no apparent psychomotor retardation noted at this time. ORIENTATION: Memory is intact for recent and remote events and the patient is oriented to time, place, and person. SUICIDAL IDEATIONS: Patient convincingly denies suicidal and self-injurious ideas or intentions. HOMICIDAL IDEATIONS: Homicidal or assaultive ideas or intentions are also denied. INSIGHT: Insight appears to be intact. JUDGMENT: Judgment is intact. [facility] Disclaimer: The information contained in this section may have been updated after the patient was seen, as this information can be updated by other users. Medical History (Updated 06/03/25 @ 20:11 by Nayeli Briceno APRN) Anxiety Diverticulitis Pancreatitis Hyperlipidemia Hypertension Rheumatoid arthritis Osteoarthritis Hemorrhoids Heart disease Gout GERD (gastroesophageal reflux disease) Colon polyps Colitis CAD (coronary artery disease) History of blood transfusion Surgical History H/O left wrist surgery History of right hip replacement History of cholecystectomy History of back surgery Hx of CABG H/O right wrist surgery Family History Father Cancer Social History (Updated 06/02/25 @ 14:59 by Rekha Hernández RN) Smoking Status: Never smoker alcohol intake: never substance use type: denies use current occupational status: retired Travel in the last 8 weeks?: None caffeine: Yes Have you lived/traveled outside US in past 30 days?: No Contact w/someone who lives/traveled outside US past 30 days?: No Exposure to someone with infectious disease in past 14 days?: No Do you have a fever (greater than 100.4 F or 38 C)?: No Have you tested positive for COVID-19?: No Exposed to someone with COVID-19 in past 14 days?: No Do you have a sore throat?: No Do you have a cough?: No Do you have any weakness?: No Are you experiencing any nausea/vomitting?: No Do you have any diarrhea?: No Are you experiencing any unusual bleeding?: No Do you have any muscle aches/pain?: No Do you have any abdominal pain?: No Are you experiencing loss of taste or smell?: No Review of Systems Constitutional Constitutional: Reports weakness *Neurologic Neurologic: Reports weakness Meds Home Medications and Allergies Home Medications ?Medication ?Instructions ?Recorded ?Confirmed ?Type alprazolam 0.25 mg tablet 0.25 mg PO TIDP PRN Anxiety 01/06/19 06/02/25 History cevimeline 30 mg capsule 30 mg PO TID 01/06/19 06/02/25 History colchicine 0.6 mg tablet 0.6 mg PO DAILY 01/06/19 06/02/25 History hydroxychloroquine 200 mg tablet 200 mg PO DAILY 01/06/19 06/02/25 History aspirin 81 mg tablet,delayed 81 mg PO DAILY 01/04/20 06/02/25 History release atenolol 50 mg tablet 50 mg PO DAILY 01/04/20 06/02/25 History cyclosporine 0.05 % eye drops in a 1 drp ophthalmic (eye) DAILY dry 01/04/20 06/02/25 History dropperette (Restasis) eyes cyanocobalamin (vitamin B-12) 1,000 mcg IM MONTHLY 08/21/24 06/02/25 History 1,000 mcg/mL injection solution vonoprazan 20 mg tablet (Voquezna) 20 mg PO DAILY #90 tabs 09/23/24 06/02/25 Rx cholecalciferol (vitamin D3) 125 125 mcg PO DAILY 12/18/24 06/02/25 History mcg (5,000 unit) capsule furosemide 20 mg tablet 20 mg PO DAILYP PRN Fluid 12/18/24 06/02/25 History vibegron 75 mg tablet (Gemtesa) 75 mg PO DAILY 12/18/24 06/02/25 History axkvnv-gvfihryl-llniwxq 1 cap PO AC 03/26/25 06/02/25 History 36,000-114,000-180,000 unit capsule,delay rel (Creon) scopolamine base 1 mg over 3 days 1 patch transdermal Q3D PRN nausea 05/15/25 06/02/25 Rx transdermal patch and vomiting #10 ea colestipol 1 gram tablet 1 g PO BID 06/02/25 06/02/25 History qsllpt-zimilffc-jqvqbxr 1 cap PO DAILYP PRN WITH SNACKS UP 06/02/25 06/02/25 History 36,000-114,000-180,000 unit TO 3 TIMES DAILY. capsule,delay rel (Creon) atorvastatin 20 mg tablet (Lipitor) 20 mg PO HS #30 tabs 06/03/25 Rx clopidogrel 75 mg tablet 75 mg PO DAILY 30 days #30 tabs 06/03/25 06/02/25 Rx clopidogrel 75 mg tablet (Plavix) 75 mg PO DAILY #30 tabs 06/03/25 Rx isosorbide mononitrate 30 mg 30 mg PO DAILY #30 tabs 06/03/25 Rx tablet,extended release 24 hr nitrofurantoin 100 mg PO Q12H 5 days #10 caps 06/03/25 Rx monohydrate/macrocrystals 100 mg capsule (Macrobid) sertraline 25 mg tablet (Zoloft) 25 mg PO DAILY #30 tabs 06/03/25 Rx New Prescriptions to Start Prescriptions: atorvastatin [Lipitor] Do Gonzales clopidogrel [Plavix] Christian,Do isosorbide mononitrate Christian,Do nitrofurantoin monohyd/m-cryst [Macrobid] Christian,Do sertraline [Zoloft] Do Gonzales Allergies Allergy/AdvReac Type Severity Reaction Status Date / Time Penicillins Allergy Intermediate Rash Verified 05/19/25 11:00 ibuprofen (From Motrin) Allergy Mild Rash Verified 05/19/25 11:00 sulfamethoxazole (From Allergy Unknown Verified 05/19/25 11:00 Bactrim) allergy reaction trimethoprim (From Bactrim) Allergy Unknown Verified 05/19/25 11:00 allergy reaction Assessment and Plan *Assessment and plan (1) SNEHA (generalized anxiety disorder): Problem Comment: Follow up scheduled with behavioral health 06/10/25 Status: Acute Category: Medical Code(s): F41.1 - Generalized anxiety disorder Plan: start zoloft 25 mg daily and continue xanax 0.25 mg tid prn anxiety
--- NOTE | 2025-06-05 10:25 | SW/DCPLANNER ---
Phoned patient and no answer the first time and was able to leave a message went to phone patient the second time and patient is in the ER. Will follow up with patient. Angela Heaton
== END 2025-06-03 14:59 | disposition home or self-care (01) ==
LOC: ER 13:55 → 2ND 13:56
PROVIDERS: Admitting Provider Student in an Organized Health Care Education/Training Program; Emergency Provider Student in an Organized Health Care Education/Training Program; PCP Internal Medicine Adolescent Medicine; Visit Provider Student in an Organized Health Care Education/Training Program
DX: E86.1 Hypovolemia (principal); I95.1 Orthostatic hypotension; F32.A Depression, unspecified; F41.1 Generalized anxiety disorder; E78.49 Other hyperlipidemia; E66.812 Obesity, class 2; K21.9 Gastro-esophageal reflux disease without esophagitis; N30.00 Acute cystitis without hematuria; I25.10 Atherosclerotic heart disease of native coronary artery without angina pectoris; M06.9 Rheumatoid arthritis, unspecified; R10.13 Epigastric pain; I45.10 Unspecified right bundle-branch block; M10.9 Gout, unspecified; I10 Essential (primary) hypertension; Z53.20 Procedure and treatment not carried out because of patient's decision for unspecified reasons; Z95.5 Presence of coronary angioplasty implant and graft; Z68.34 Body mass index [BMI] 34.0-34.9, adult; Z95.1 Presence of aortocoronary bypass graft; Z88.0 Allergy status to penicillin; Z88.1 Allergy status to other antibiotic agents; Z88.6 Allergy status to analgesic agent; Z88.2 Allergy status to sulfonamides; Z79.02 Long term (current) use of antithrombotics/antiplatelets; Z79.82 Long term (current) use of aspirin; Z79.899 Other long term (current) drug therapy
CPT/HCPCS: 0223U; 36415; 71045; 80053; 81001; 83735; 83880; 84439; 84443; 84484; 85025; 87086; 87633; 93005; 96365; 96374; 96375; 97163; 97165; 99285; G0378; J0696; J1650; J2405; J7120

== ENCOUNTER 2025-06-05 08:36 | Emergency (ER) | payer MEDICARE, BC, SELFPAY ==
[2025-06-05] VITALS (17 sets, daily range): BP systolic 122–155; BP diastolic 61–95; PULSE 40–62; RESP 12–22; TEMP 37.1; O2SAT 95–99; BMI 36.3
--- NOTE | 2025-06-05 08:37 | ECG_ITS ---
APPROVED REPORT Exam: Resting ECG HR:60 bpm ECG Measurements Heart Rate 60 AXES TN 142 P 56 QRSd 132 QRS 60 QT 439 T 219 QTc 439 Conclusion SINUS RHYTHM RIGHT BUNDLE BRANCH BLOCK [120+ ms QRS DURATION, UPRIGHT V1, 40+ ms S IN I/aVL/V4/V5/V6] MODERATE T-WAVE ABNORMALITY, CONSIDER LATERAL ISCHEMIA [-0.1+ mV T-WAVE IN I/aVL/V5/V6] MODERATE T-WAVE ABNORMALITY, CONSIDER INFERIOR ISCHEMIA [-0.1+ mV T-WAVE IN II/aVF] ABNORMAL ECG UNCONFIRMED REPORT Electronically signed by : NARCISO DOTY, 06/06/2025 01:04:50
--- NOTE | 2025-06-05 08:38 | HMH.EDGENADL ---
Discharge Plan Disposition Patient Disposition: Home, Self-Care Condition: Good Prescriptions Prescriptions: No Action Gemtesa 75 mg tablet 75 mg PO DAILY cholecalciferol (vitamin D3) 125 mcg (5,000 unit) capsule 125 mcg PO DAILY Voquezna 20 mg tablet 20 mg PO DAILY Qty: 90 3RF cyanocobalamin (vitamin B-12) 1,000 mcg/mL solution 1,000 mcg IM MONTHLY alprazolam 0.25 MG tablet 0.25 mg PO TIDP PRN (Reason: Anxiety) cevimeline 30 MG capsule 30 mg PO TID hydroxychloroquine 200 MG tablet 200 mg PO DAILY Patient Comments: 1 a day. 2 the next day colchicine 0.6 MG tablet 0.6 mg PO DAILY scopolamine base 1 mg over 3 days patch 3 day 1 patch transdermal Q3D PRN (Reason: nausea and vomiting) Qty: 10 1RF aspirin 81 MG tablet,delayed release (DR/EC) 81 mg PO DAILY atenolol 50 MG tablet 50 mg PO DAILY cyclosporine [Restasis] 1 EACH dropperette 1 drp ophthalmic (eye) DAILY furosemide 20 mg tablet 20 mg PO DAILYP PRN (Reason: Fluid) Creon 36,000-114,000- 180,000 unit capsule,delayed release(DR/EC) 1 cap PO AC Rx Instructions: Take 1 capsule by mouth before meals/snacks max 6XD colestipol 1 gram tablet 1 g PO BID Creon 36,000-114,000- 180,000 unit capsule,delayed release(DR/EC) 1 cap PO DAILYP PRN (Reason: WITH SNACKS UP TO 3 TIMES DAILY.) atorvastatin [Lipitor] 20 mg tablet 20 mg PO HS Qty: 30 1RF nitrofurantoin monohyd/m-cryst [Macrobid] 100 mg capsule 100 mg PO Q12H 5 Days Qty: 10 0RF Rx Instructions: must administer with a meal/food isosorbide mononitrate 30 mg tablet extended release 24 hr 30 mg PO DAILY Qty: 30 1RF clopidogrel 75 mg Tablet 75 mg PO DAILY 30 Days Qty: 30 1RF clopidogrel [Plavix] 75 mg tablet 75 mg PO DAILY Qty: 30 1RF sertraline [Zoloft] 25 mg tablet 25 mg PO DAILY Qty: 30 0RF Referrals Follow up/Referrals: Provider,Referral, MD [Referring, Medical] - See instructions Activity Restrictions/Add. Instructions Additional Instructions/Restrictions: Follow-up with your ophthalmic technician as soon as you are able to get appointment, ideally within the next 2 to 3 days. Please follow up with your primary care provider in 2-3 days. Please return to ED if your symptoms worsen, change in location, change in severity, new symptoms develop or if you become concerned for your health. Clinical Impressions Clinical Impression: Chest pain, Anxiety Print Language Print Language: Lithuanian Discharge ED Provider: Low Zamorano General Adult HPI General Chief complaint: Chest Pain Stated complaint: Chest discomfort Time Seen by Provider: 06/05/25 08:38 History of Present Illness HPI narrative: Patient is a 79-year-old female with a history of coronary disease s/p CABG 20 years ago and PCI on May 15 here. She also has hypertension hyperlipidemia arthritis anxiety. She has been compliant with her aspirin and Plavix. She reports that she woke up this morning to use the restroom and noticed a slight discomfort in her left arm as well as in the lateral aspect of her left chest. She reports it is a 2 out of 10. Does not radiate. She reports it is a throbbing mild discomfort, no sharp and stabbing pain. She denies any shortness of breath. She reports that this is similar to when she had to get a stent placed, but much less severe today. She denies it getting worse with exertion. She reports that since arrival here without intervention, she reports the pain is already improving. She denies any recent fevers cough infectious symptoms. Denies any trauma to the area. Denies any lower extremity edema or history of blood clots. Reports some palpitations this morning, that is resolved. I reviewed the EMR and discharge summary from 06/02 which demonstrates generalized weakness that patient was offered physical therapy at home, but declined. Related Data Home Medications ?Medication ?Instructions ?Recorded ?Confirmed alprazolam 0.25 mg tablet 0.25 mg PO TIDP PRN Anxiety 01/06/19 06/02/25 cevimeline 30 mg capsule 30 mg PO TID 01/06/19 06/02/25 colchicine 0.6 mg tablet 0.6 mg PO DAILY 01/06/19 06/02/25 hydroxychloroquine 200 mg tablet 200 mg PO DAILY 01/06/19 06/02/25 aspirin 81 mg tablet,delayed 81 mg PO DAILY 01/04/20 06/02/25 release atenolol 50 mg tablet 50 mg PO DAILY 01/04/20 06/02/25 cyclosporine 0.05 % eye drops in a 1 drp ophthalmic (eye) DAILY dry 01/04/20 06/02/25 dropperette (Restasis) eyes cyanocobalamin (vitamin B-12) 1,000 mcg IM MONTHLY 08/21/24 06/02/25 1,000 mcg/mL injection solution cholecalciferol (vitamin D3) 125 125 mcg PO DAILY 12/18/24 06/02/25 mcg (5,000 unit) capsule furosemide 20 mg tablet 20 mg PO DAILYP PRN Fluid 12/18/24 06/02/25 vibegron 75 mg tablet (Gemtesa) 75 mg PO DAILY 12/18/24 06/02/25 uqybnj-pjxnoxci-nymffuf 1 cap PO AC 03/26/25 06/02/25 36,000-114,000-180,000 unit capsule,delay rel (Creon) colestipol 1 gram tablet 1 g PO BID 06/02/25 06/02/25 ryugxo-kzgmstlv-zyydbgt 1 cap PO DAILYP PRN WITH SNACKS UP 06/02/25 06/02/25 36,000-114,000-180,000 unit TO 3 TIMES DAILY. capsule,delay rel (Creon) Previous Rx's ?Medication ?Instructions ?Recorded vonoprazan 20 mg tablet (Voquezna) 20 mg PO DAILY #90 tabs 09/23/24 scopolamine base 1 mg over 3 days 1 patch transdermal Q3D PRN nausea 05/15/25 transdermal patch and vomiting #10 ea atorvastatin 20 mg tablet (Lipitor) 20 mg PO HS #30 tabs 06/03/25 clopidogrel 75 mg tablet 75 mg PO DAILY 30 days #30 tabs 06/03/25 clopidogrel 75 mg tablet (Plavix) 75 mg PO DAILY #30 tabs 06/03/25 isosorbide mononitrate 30 mg 30 mg PO DAILY #30 tabs 06/03/25 tablet,extended release 24 hr nitrofurantoin 100 mg PO Q12H 5 days #10 caps 06/03/25 monohydrate/macrocrystals 100 mg capsule (Macrobid) sertraline 25 mg tablet (Zoloft) 25 mg PO DAILY #30 tabs 06/03/25 Allergies Allergy/AdvReac Type Severity Reaction Status Date / Time Penicillins Allergy Intermediate Rash Verified 06/05/25 08:57 ibuprofen (From Motrin) Allergy Mild Rash Verified 06/05/25 08:57 sulfamethoxazole (From Allergy Unknown Verified 06/05/25 08:57 Bactrim) allergy reaction trimethoprim (From Bactrim) Allergy Unknown Verified 06/05/25 08:57 allergy reaction PFSH PFS Disclaimer: The information contained in this section may have been updated after the patient was seen, as this information can be updated by other users. Medical History (Updated 06/05/25 @ 12:30 by Low Zamorano MD) Anxiety Diverticulitis Pancreatitis Hyperlipidemia Hypertension Rheumatoid arthritis Osteoarthritis Hemorrhoids Heart disease Gout GERD (gastroesophageal reflux disease) Colon polyps Colitis CAD (coronary artery disease) History of blood transfusion Surgical History H/O left wrist surgery History of right hip replacement History of cholecystectomy History of back surgery Hx of CABG H/O right wrist surgery Family History Father Cancer Social History Smoking Status: Never smoker alcohol intake: never substance use type: denies use current occupational status: retired Travel in the last 8 weeks?: None caffeine: Yes Have you lived/traveled outside US in past 30 days?: No Contact w/someone who lives/traveled outside US past 30 days?: No Exposure to someone with infectious disease in past 14 days?: No Do you have a fever (greater than 100.4 F or 38 C)?: No Have you tested positive for COVID-19?: No Exposed to someone with COVID-19 in past 14 days?: No Do you have a sore throat?: No Do you have a cough?: No Do you have any weakness?: No Do you have any diarrhea?: No Are you experiencing any unusual bleeding?: No Do you have any muscle aches/pain?: No Do you have any abdominal pain?: No Are you experiencing loss of taste or smell?: No Other Medical History Have you received the Flu Vaccine for this season: No Have you received the Pneumonia Vaccine: No ROS Obtained: Yes All systems reviewed & no additional complaints except as documented Physical Exam General General appearance: alert and in no apparent distress Head Head exam: atraumatic and normocephalic Eye Eye exam: Present PERRL and EOMI ENT ENT exam: Present normal oropharynx Neck Neck exam: Present full ROM and trachea midline Chest Chest inspection: Present symmetric chest wall rise Respiratory Respiratory exam: Present normal lung sounds bilaterally; Absent stridor Cardiovascular Cardiovascular exam: Present regular rate and normal rhythm Abdominal Exam Abdominal exam: Present soft; Absent distention or tenderness Extremities Exam Extremities exam: Present full ROM Neurological Exam Neurological exam: Present alert and oriented X3 Psychiatric Psychiatric exam: Present normal mood Skin Skin exam: Present warm and dry Medical Decision Making Medical Records Screening: Per USPSTF and CDC recommendations, given the prevalence of disease in our region, it is our hospital?s policy to screen for HIV and viral Hepatitis for all patients aged 18 and over and those with ongoing risk factors. Earl Inquiry Pt receiving controlled substance: No Vital Signs: 06/05/25 08:41 06/05/25 08:41 06/05/25 09:01 Temperature 98.7 F 98.7 F Temperature Source Oral Oral Pulse Rate 58 L 62 Pulse Rate [Right Radial] 58 L Respiratory Rate 20 20 16 Blood Pressure 154/66 H 122/67 Blood Pressure [Right Arm] 154/66 H Blood Pressure Mean [Right Arm] 95 02 Sat by Pulse Oximetry 98 98 96 Oxygen Delivery Method Room Air Room Air 06/05/25 09:15 06/05/25 09:16 06/05/25 09:30 Temperature Temperature Source Pulse Rate 55 L 56 L 59 L Pulse Rate [Right Radial] Respiratory Rate 17 22 15 Blood Pressure 125/69 125/69 143/70 H Blood Pressure [Right Arm] Blood Pressure Mean [Right Arm] 02 Sat by Pulse Oximetry 97 96 95 Oxygen Delivery Method 06/05/25 10:00 06/05/25 10:15 06/05/25 10:30 Temperature Temperature Source Pulse Rate 61 60 58 L Pulse Rate [Right Radial] Respiratory Rate 15 17 14 Blood Pressure 133/95 H 152/68 H 146/68 H Blood Pressure [Right Arm] Blood Pressure Mean [Right Arm] 02 Sat by Pulse Oximetry 99 98 99 Oxygen Delivery Method 06/05/25 10:46 06/05/25 11:00 06/05/25 11:16 Temperature Temperature Source Pulse Rate 59 L 57 L 60 Pulse Rate [Right Radial] Respiratory Rate 14 17 19 Blood Pressure 152/69 H 141/75 H 150/61 H Blood Pressure [Right Arm] Blood Pressure Mean [Right Arm] 02 Sat by Pulse Oximetry 98 99 98 Oxygen Delivery Method 06/05/25 11:30 06/05/25 11:47 06/05/25 12:01 Temperature Temperature Source Pulse Rate 57 L 61 Pulse Rate [Right Radial] Respiratory Rate 15 13 15 Blood Pressure 150/70 H 122/72 150/68 H Blood Pressure [Right Arm] Blood Pressure Mean [Right Arm] 02 Sat by Pulse Oximetry 99 99 Oxygen Delivery Method Lab Data Lab Results 06/05/25 08:44: WBC 4.3 L, RBC 3.99 L, Hgb 13.3, Hct 38.9, MCV 97.5, MCH 33.3 H, MCHC 34.2, RDW 13.2, Plt Count 125 L, MPV 11.1 H, Neut % (Auto) 75.9, Lymph % (Auto) 13.8, [place] % (Auto) 9.4 H, Eos % (Auto) 0.2, Baso % (Auto) 0.5, Neut # (Auto) 3.2, Lymph # (Auto) 0.6 L, [place] # (Auto) 0.4, Eos # (Auto) 0.0, Baso # (Auto) 0.0, PT 11.8, INR 1.07, Sodium 138, Potassium 3.6, Chloride 105, Carbon Dioxide 23, Anion Gap 13.6, BUN 17, Creatinine 1.00, Estimated Creat Clear 60, Estimated GFR 54 L, Est GFR ( Amer) 65, Glucose 118 H, Calcium 9.7, Magnesium 1.8, Total Bilirubin 1.4 H, AST 38 H, ALT 27 D, Alkaline Phosphatase 65, Troponin I 0.03, Total Protein 6.3, Albumin 4.3, Globulin 2.0, Albumin/Globulin Ratio 2.2 H 06/05/25 11:44: Troponin I 0.03 06/05/25 08:44 06/05/25 08:44 Orders (Tests/Meds): ED MEDICATIONS Discontinued Medications Generic Name Dose Route Start Last Admin Trade Name Freq PRN Reason Stop Dose Admin Acetaminophen 1,000 mg 06/05/25 08:52 06/05/25 09:03 Acetaminophen 500mg Tab PO 06/05/25 08:53 1,000 mg ONCE ONE Administration Aspirin 325 mg 06/05/25 08:52 06/05/25 09:02 Aspirin 325mg Tablet PO 06/05/25 08:53 325 mg ONCE ONE Administration Nitroglycerin 0.4 mg 06/05/25 08:52 06/05/25 09:03 Nitroglycerin 0.4mg Sl Tablet SL 06/05/25 08:53 0.4 mg ONCE ONE Administration Scopolamine 1 each 06/05/25 10:01 06/05/25 10:35 Scopolamine 1.5mg/72hrs Patch TD 06/05/25 10:02 1 each ONCE ONE Administration ORDERS Category Date Time Status XR chest portable Stat Exams 06/05/25 08:53 Completed CBC w/Auto Diff [Complete Blood Count Auto Diff] Stat Lab 06/05/25 08:44 Completed CMP [Comprehensive Metabolic Panel] Stat Lab 06/05/25 08:44 Completed MAG [Magnesium] Stat Lab 06/05/25 08:44 Completed PT INR [Prothrombin Time INR] Stat Lab 06/05/25 08:44 Completed Trop I [Troponin I] Stat Lab 06/05/25 08:44 Completed Troponin I Q3H Lab 06/05/25 11:44 Completed Troponin I Q3H Lab 06/05/25 15:00 Ordered ECG Data Tracing #1: I reviewed this ECG and interpreted as documented below: Normal sinus rhythm with some T wave inversions in the inferior leads II, III and aVF as well as through the precordium. Per my review of previous EKGs this is similar when compared with prior. Low concern for acute ischemia HEART Score History (anamnesis): Moderately suspicious ECG: Non-specific disturbance Age: >65 years Risk factors: 3 or more risk factors Troponin: </= normal limit HEART Score: 6 Medical Decision Narrative: In summary, this 79-year-old female presents to the emergency department today with chest pain arm pain. On initial evaluation patient is afebrile, mildly hypertensive, otherwise stable. On exam, is warm and well-perfused with full pulses in all extremities. Heart is regular rate and rhythm lung sounds are clear to auscultation bilaterally. No increased breathing. No tenderness over the chest and no rash. History does not seem consistent with ACS, especially given her pain is getting better, it is possible that she just has a muscle strain versus arthritis flare, however she is high risk and does describe that the pain was similar to when she had to get her stents, so felt reasonable to proceed with an ACS workup, and will continue to monitor her.. Differential diagnosis includes but is not limited to ACS, NE, costochondritis, arthritis, pneumonia. Based on these concerns, I ordered CBC CMP magnesium troponin. Patient was placed in observation status at 0900 Due to the need for repeat troponins in the setting of high risk ACS. Patient received ASA, SL nitro, tylenol for treatment. Labs personally reviewed demonstrate mild leukopenia similar when compared prior primary review of EMR. Troponin very slightly elevated at 0.03, but flat and similar when compared with prior.. XR personally interpreted demonstrates no acute intrathoracic process. Sternotomy wires present.. On reassessment patient reports complete resolution in her symptoms. Low suspicion for ACS given constellation of labs and resolution of symptoms. She does report that she is feeling somewhat anxious, and something she is struggles with previously. She recently had her isosorbide dinitrate decreased from 60-30. She is asking about increasing that again, I have told her to follow-up with her ophthalmic technician regarding that. I have updated her and her family who are at bedside. Stricter precautions are discussed all questions answered amenable to plan and discharge. Of note, social determinants of health include poor health literacy. At this time it was felt that the patient was safe to be discharged home. The patient was in agreement with this plan. The patient was given strict return precautions prior to being discharged from the emergency department. Critical Care Critical Care Time Critical Care Time: No
--- NOTE | 2025-06-05 08:40 | PC.NURSE ---
FSBS is 123, RN Notified
--- NOTE | 2025-06-05 08:53 | XR_ITS ---
FINAL REPORT CLINICAL HISTORY: Nonspecific chest pain COMPARISON: 06/02/2025 FINDINGS: CHEST, 1 view FINDINGS: No acute pulmonary opacity is present. There is no evidence of effusion or pneumothorax. There is evidence of prior median sternotomy, presumably from CABG. Otherwise, mediastinum is unremarkable. Heart size is normal. IMPRESSION: Unremarkable chest, status post CABG. Reviewed, Interpreted and Dictated by Berhane Ferris MD Transcribed by Mary Rayo Authenticated and [facility]
--- OUTSIDE RECORDS SUMMARY | 2025-06-05 08:57 | XMS_ITS | Encounter Summary ---
Author Organization [facility] ([place], [place], [place], [place]) Address [address] [place] [address] Care Team Providers Care Sugar Drier Name Role Phone José Miguel Verde MD Primary Care Provider + [phone] Encounter Details Date Type Department Care Team (Late st Contact Info) Description 07/15/2020 Transcribed Document [facility] [place] [facility] [address] [place] [address] ProviderNitin MD [address] [place] [address] Social History Tobacco Use Types [...] 07/15/2020 4:17 PM CDT Electronically signed by [facility] Conversion Logistics Service Representative Jessica at 02/26/2023 10:51 PM CDT documented in this encounter Plan of Treatment Not on file documented as of this encounter Visit Diagnoses Not on filedocumented in this encounter Care Teams Sugar Drier Relationship Specialty Start Date End Date José Miguel Verde MD [address] [place] [address] PCP - General Adolescent Medicine 03/07/23 documented as of this encounter
--- OUTSIDE RECORDS SUMMARY | 2025-06-05 08:57 | XMS_ITS | Data Portability ---
Author Organization [facility] [place] [facility], [facility] [place] CLOSED Address [address] [place] [address] Care Team Providers Care Traffic Agent Name Role Phone MIGDALIA KHANNA Primary Care Provider [phone] MIGUEL SALAZAR Candle Molder Hand Assessment Encounter Date Assessment Date Assessment LastModified [...] graft angiography. This was carried out by ca on March 10 and revealed ostial RCA [...] has been evaluated in the ER at [facility] on 01/15/2024 for chest pain. She [...] has been evaluated in the ER at [facility] on 01/15/2024 for chest pain. She [...] has been evaluated in the ER at [facility] on 01/15/2024 for chest pain. She [...] By Organization Details Last Modified Time 02/28/2024 [id number] body mass index: care instructions [email or web address] Not available 02/28/2024 18:49:40 high blood pressure: care instructions Not available 02/28/2024 18:49:40 10/29/2024 [id number] body mass index: care instructions Not available [...] color flow No observ ation record ed. [address], [place], [address], 01/29/2024 09:10:07 01/30/20 24 01/19/2024 US, doppl er echoc ardio gram, w/ color flow No observ ation record ed. [address], [place], [address], 01/31/2024 13:06:02 01/30/20 24 01/19/2024 US, doppl er echoc ardio gram, w/ color flow No observ ation record ed. [address] (Med Record) [address], [place], [address], 01/31/2024 13:05:34 01/30/20 24 01/15/2024 elect rocar diogr am No observ ation record ed. [address], [place], [address], 01/31/2024 13:05:20 02/12/20 24 01/19/2024 US, doppl er echoc ardio gram, w/ color flow No observ ation record ed. [address], [place], [address], 02/12/2024 15:34:23 02/12/20 24 02/06/2024 event monit or No observ ation record ed. [address], [place], [address], 02/13/2024 11:15:22 05/02/20 24 04/24/2024 elect geetha johnson am No observ ation record ed. BARCODE Not Available 2023 08:45:48 Result Notes None recorded. Problems Name Problem SNOMED Code Status Onset Date Resolution Date Notes Provider Name and Address Organization Details Recorded Time Coronary arteriosc lerosis in [place] artery 325485815019 7 Active 2014 From Automated Load;Prov ider: Jason Amado;Stat us: Active [facility] 0 15:08:54 Hyperlipi demia 57637212 Active 2014 From Automated Load;Prov ider: Jason Amado;Stat us: Active [facility] 0 15:08:54 Problem Notes None recorded. Procedures Surgical History Date Name Laterality Status Provider Name and Address Organization Details Recorded Time 04/24/20 24 EKG completed MIGUEL SALAZAR MD [address] [place] [address], [phone], [facility] 04/26/2024 11:09:13 10/23/20 23 EKG completed MIGUEL SALAZAR MD [address] [place] [address], [phone], [facility] 10/23/2023 14:45:41 10/25/20 22 EKG completed YELENA GARCIA PA-C [address] [place] [address], [phone], [facility] 10/25/2022 14:05:38 04/25/20 22 EKG completed YELENA GARCIA PA-C [address] [place], [address], [facility] 04/25/2022 14:01:56 10/20/20 21 EKG completed YELENA GARCIA PA-C [address] [place], [address], [facility] 10/20/2021 14:58:02 10/12/20 10 Cardiac Catheterization completed [facility] 03/29/2017 15:44:16 09/13/20 02 Cardiac Surgery completed [facility] 03/29/2017 15:43:45 Other completed [facility] 03/29/2017 15:43:14 Cholecystectomy completed [facility] 03/29/2017 15:43:26 Other completed [facility] 03/29/2017 15:44:26 Other completed [facility] 03/29/2017 15:44:34 Other completed [facility] 03/29/2017 15:44:42 Other completed [facility] 03/29/2017 15:44:50 Imaging Results None recorded. Procedure Notes None recorded. Medical Equipment None Reported. Allergies Allergen ID Allergen Name Allergen Category Reaction Reaction Severity Criticality Documentation Date Start Date Code Code System Note Provider Name and Address Organization Details Recorded Time 840924 Motrin medicatio n itching Not available Not available 10/06/2016200948 8 RxNorm React ion: ITCHI NG; Comme nt: Creat ed By: Marge rivas Date: 08/31 3:29: 43 PM; Not Available [facility] 6 14:10:00 [id number] Product containin g penicilli n (product) medicatio n rash Not available Not available 10/07/20162009 85572 8001 SNOMED React ion: RASH; Comme nt: Creat ed By: Marge Helms reate d Date: 08/31 3:29: 20 PM; Not Available [facility] 6 03:51:38 Medications Name Sig Start Date [...] Updated DateTime 4 162.56 cm 34 kg/m2 06868.0 1 g 97 % 97 % 64 /min 120/68 mm[Hg] Magda Zhong [facility] 4 15:03:41 Date Recorded Body height Body mass index (BMI) Body weight Heart rate Respiratory rate Oxygen saturation Oxygen saturation in Arterial blood by Pulse oximetry Systolic And Diastolic Provider Name and Address Organization Details Last Updated DateTime 3 162.56 cm 34.1 kg/m2 05774.3 9 g 59 /min 16 /min 96 % 96 % 120/78 mm[Hg] Maddi Llanes [facility] 3 09:29:27 Date Recorded Body height Body mass index (BMI) Body weight Respiratory rate Heart rate Oxygen saturation Oxygen saturation in Arterial blood by Pulse oximetry Systolic And Diastolic Provider Name and Address Organization Details Last Updated DateTime 4 162.56 cm 34.4 kg/m2 40914.5 7 g 16 /min 58 /min 98 % 98 % 124/66 mm[Hg] Lo Ramirez [facility] 4 14:52:40 Date Recorded Body height Body mass index (BMI) Body weight Heart rate Oxygen saturation Oxygen saturation in Arterial blood by Pulse oximetry Systolic And Diastolic Provider Name and Address Organization Details Last Updated DateTime 3 162.56 cm 34.8 kg/m2 43144.4 6 g 58 /min 97 % 97 % 122/65 mm[Hg] Emily Gama [facility] 3 13:51:20 Date Recorded Body height Oxygen saturation Oxygen saturation in Arterial blood by Pulse oximetry Heart rate Systolic And Diastolic Provider Name and Address Organization Details Last Updated DateTime 4 162.56 cm 98 % 98 % 65 /min 140/70 mm[Hg] Magda Zhong [facility] 4 14:03:05 Social History Question Answer Notes LastModified by Organizat ion Details LastModified Time Tobacco Smoking Status Never Smoker Leidy Ryder [facility] 03/29/2017 15:41:57 How Much Tobacco Do You Chew? None Information not available 11/23/2020 Marital Status Informatio n not available 03/29/2017 What Was The Date Of Your Most Recent Tobacco Screening? 10/29/2024 Information not available 10/29/2024 How Many Children Do You Have? 1 Information not available 03/29/2017 What Is Your Relationship Status? [email or web address] Information not available 10/23/2023 How Much Tobacco Do You Smoke? No Information not available 11/23/2020 Has Tobacco Cessation Counseling Been Provided? No Information not available 02/28/2024 Have You Recently Traveled Abroad? 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 Information not available 03/29/2017 Do you or have you ever used e-cigarettes or vape? Never used electronic cigarettes Information not available 10/24/2019 Mental Status None [...] Edema Y Chest Pain Y Heart Attack (MS) Y Ulcers N Diabetes N Rheumatic Fever [...] 50 mcg/0.25mL dose 12/09/2020 completed Emily Malloy [facility] 10/20/2021 14:10:21 COVID-19, mRNA, LNP-S, PF, 100 mcg/0.5mL dose or 50 mcg/0.25mL dose 01/06/2021 completed Emily Malloy [facility] 10/20/2021 14:10:37 COVID-19, mRNA, LNP-S, PF, 100 mcg/0.5mL dose or 50 mcg/0.25mL dose 08/11/2021 completed Emily Malloy [facility] 10/20/2021 14:10:54 Past Encounters Encounter ID Performer Location Encounter Start Date Encounter Closed Date Diagnosis/Indication Diagnosis SNOMED-CT Code Diagnosis ICD10 Code Diagnosis Note [id number] JASON AMADO MD CARDIOLOG Y [address] [place], [place] [address] 04/03/2017 13:10:27 04/03/2017 13:49:50 Coronary arteriosclerosis in [place] artery 7275894592 107 I25.10 Medication changes, as well as [...] call for any change in status. Hyperlipidemia 38961751 E78.5 reviewed outside lipid studies. All parameters are in appropriat e range. She is to continue her current regimen. [id number] JASON AMADO MD CARDIOLOG Y [address] [place], [place] [address] 09/25/2017 12:53:34 09/25/2017 14:36:54 Coronary arteriosclerosis in [place] artery 1251717416 107 I25.10 Medication changes, as well as [...] call for any change in status. Hyperlipidemia 75655050 E78.5 reviewed outside lipid studies. All parameters are in appropriat e range. She is to continue her current regimen. [id number] JASON AMADO MD CARDIOLOG Y [address] [place] [address] 04/02/2018 09:28:26 04/02/2018 11:01:03 Coronary arteriosclerosis in [place] artery 9385170394 107 I25.10 Medication changes, as well as [...] call for any change in status. Hyperlipidemia 46981055 E78.5 reviewed outside lipid studies. All parameters are in appropriat e range. She is to continue her current regimen. [id number] JASON AMADO MD CARDIOLOG Y [address] [place] [address] 10/22/2018 13:48:50 10/22/2018 15:10:00 Coronary arteriosclerosis in [place] artery 1902299131 107 I25.10 Medication changes, as well as [...] call for any change in status. Hyperlipidemia 56290353 E78.5 Most recent testing reviewed. All laboratory measuremen ts in appropriat e parameters on current medical therapy. This was reviewed and discussed with the patient and all questions answered. [id number] JASON AMADO MD CARDIOLOG Y [address] [place] [address] 02/07/2019 11:09:23 02/07/2019 13:35:19 Coronary arteriosclerosis in [place] artery 8577777578 107 I25.10 Medication changes, as well as [...] call for any change in status. Hyperlipidemia 71983713 E78.5 Most recent testing reviewed. All laboratory measuremen ts in appropriat e parameters on current medical therapy. This was reviewed and discussed with the patient and all questions answered. [id number] JASON AMADO MD CARDIOLOG Y [address] [place] [address] 05/08/2019 13:19:05 05/08/2019 13:58:46 Coronary arteriosclerosis in [place] artery 4907089975 107 I25.10 Medication changes, as well as [...] call for any change in status. Hyperlipidemia 88405419 E78.5 Most recent testing reviewed. All laboratory measuremen ts in appropriat e parameters on current medical therapy. This was reviewed and discussed with the patient and all questions answered. Edema of foot 292536972 R60.0 I discussed the importance of salt restrictio n. Per FDA recommenda tions, I advise limit of 2000 -2400 mg daily of sodium. Increase sodium intake is often associated with worsening of hypertensi on and or heart failure.DA SH diet given.. Advised to increase furosemide to 40 mg a day until edema resolves and then resume previous dosage. [id number] FROILAN BAGLEY MD HEM/ONC SB CLOSED [address] [place] [address] 09/09/2019 08:55:56 09/09/2019 09:56:44 [id number] FROILAN BAGLEY MD HEM/ONC SB CLOSED [address] [place] [address] 09/23/2019 14:46:58 09/23/2019 15:53:02 [id number] JASON AMADO MD CARDIOLOG Y [address] [place] [address] 10/24/2019 12:38:41 10/24/2019 13:57:59 Coronary arteriosclerosis in [place] artery 8500017553 107 I25.10 Medication changes, as well as [...] call for any change in status. Hyperlipidemia 74287426 E78.5 Most recent testing reviewed. All laboratory measuremen ts in appropriat e parameters on current medical therapy. This was reviewed and discussed with the patient and all questions answered. Edema of foot 573233826 R60.0 I discussed the importance of salt restrictio n. Per FDA recommenda tions, I advise limit of 2000 -2400 mg daily of sodium. Increase sodium intake is often associated with worsening of hypertensi on and or heart failure.DA SH diet given.. Advised to increase furosemide to 40 mg a day until edema resolves and then resume previous dosage. [id number] FROILAN BAGLEY MD HEM/ONC SB CLOSED [address] [place] [address] 04/20/2020 12:49:16 04/20/2020 13:27:21 [id number] JASON AMADO MD CARDIOLOG Y [address] [place] [address] 05/04/2020 13:42:38 05/04/2020 14:45:16 Coronary arteriosclerosis in [place] artery 4824919762 107 I25.10 Medication changes, as well as [...] call for any change in status. Hyperlipidemia 67751127 E78.5 Most recent testing reviewed. All laboratory measuremen ts in appropriat e parameters on current medical therapy. This was reviewed and discussed with the patient and all questions answered. Edema of foot 004364033 R60.0 I discussed the importance of salt restrictio n. Per FDA recommenda tions, I advise limit of 2000 -2400 mg daily of sodium. Increase sodium intake is often associated with worsening of hypertensi on and or heart failure.DA SH diet given.. Advised to increase furosemide to 40 mg a day until edema resolves and then resume previous dosage. [id number] JASON AMADO MD CARDIOLOG Y [address] [place] [address] 11/23/2020 14:04:41 11/23/2020 15:54:54 Coronary arteriosclerosis in [place] artery 5211857241 107 I25.10 Medication changes, as well as [...] call for any change in status. Hyperlipidemia 27664677 E78.5 Most recent testing reviewed. All laboratory measuremen ts in appropriat e parameters on current medical therapy. This was reviewed and discussed with the patient and all questions answered. Edema of foot 767205134 R60.0 I discussed the importance of salt restrictio n. Per FDA recommenda tions, I advise limit of 2000 -2400 mg daily of sodium. Increase sodium intake is often associated with worsening of hypertensi on and or heart failure.DA SH diet given.. Advised to increase furosemide to 40 mg a day until edema resolves and then resume previous dosage. COVID-19 835205892 U07.1 I had extensive discussion with patient regarding the importance of vaccinatio n and reviewed findings of COVID 19 infection and answered all questions. [id number] JASON AMADO MD CARDIOLOG Y [address] [place] [address] 04/22/2021 10:16:00 04/22/2021 10:42:04 Coronary arteriosclerosis in [place] artery 9207733088 107 I25.10 Medication changes, as well as [...] No testing needed at this time Hyperlipidemia 15260614 E78.5 Most recent testing reviewed. All laboratory measuremen ts in appropriat e parameters on current medical therapy. This was reviewed and discussed with the patient and all questions answered. Edema of foot 831766681 R60.0 I discussed the importance of salt restrictio n. Per FDA recommenda tions, I advise limit of 2000 -2400 mg daily of sodium. Increase sodium intake is often associated with worsening of hypertensi on and or heart failure.DA SH diet given.. Advised to increase furosemide to 40 mg a day until edema resolves and then resume previous dosage. COVID-19 193775984 U07.1 I had extensive discussion with patient regarding the importance of vaccinatio n and reviewed findings of COVID 19 infection and answered all questions. [id number] YELENA GARCIA PA-C CARDIOLOG Y [address] [place] [address] 10/20/2021 13:30:08 10/20/2021 15:19:47 Coronary arteriosclerosis 96523361 I25.10 Medication changes, as well as new [...] call for any change in status Dyslipidemia 776999799 E 78.5 Lipid goals discussed with patient. (Total cholestero l less than 170, LDL less than 70. ) Continue heart healthy diet.bertin nue current dose of Lipitor. [id number] YELENA GARCIA PA-C CARDIOLOG Y [address] ,[address] [place], [place] [address] 04/25/2022 13:10:58 04/25/2022 14:17:13 Obese 868066029 E66.9 Coronary arteriosclerosis 34779732 I25.10 Medication changes, as well as new [...] call for any change in status Dyslipidemia 574854132 E 78.5 Lipid goals discussed with patient. (Total cholestero l less than 170, LDL less than 70. ) Continue heart healthy diet.bertin nue current dose of Lipitor. [id number] YELENA GARCIA PA-C CARDIOLOG Y [address] [place], [place] [address] 10/25/2022 13:07:16 10/25/2022 14:19:06 Obese 540674075 E66.9 Coronary arteriosclerosis 45563502 I25.10 The patient is doing well on current management . No new active problems identified . Chronic problems are all stable. Patient is to continue current regimen without change. All questions answered and regimen reviewed. Patient is to call for any change in status Dyslipidemia 207385692 E 78.5 Continue current dose of Lipitor. Obtain fasting lipid profile with PCP [id number] MIGUEL SALAZAR MD CARDIOLOG Y [address] [place] [address] 04/19/2023 08:57:28 04/19/2023 12:59:26 Obesity 442783230 E66.9 patient's BMI today was = 34.1; recommend weight loss for beneficial effects on health. Coronary atherosclerosis 911101542 I25.10 patient with history of CAD, history of CABG-see HPI for detail; no new symptoms reported; exam is relatively unchanged from previous visit; continue with current medication s -enteric-c oated aspirin 81 mg p.o. daily, atenolol 50 mg 1 p.o. nightly, colestipol 1 g tablet p.o. twice daily Anxiety 54697242 F41.9 She reports much increased anxiety/st ress in her life recently due to the deaths of several friends. Hyperlipidemia 65529845 E78.5 continue with current medication s -colestipo l 1 g tablet p.o. twice daily, low cholestero l diet, and recommend fasting lipids at least yearly. Goal lipid profile: TC<=200, TG<=150, HDL>=40, LDL<=70. [id number] MIGUEL SALAZAR MD CARDIOLOG Y SB [address] [place] [address] 10/23/2023 13:19:59 10/23/2023 15:24:43 Coronary atherosclerosis 194409908 I25.10 patient with history of CAD, history of CABG-see HPI for detail; no new symptoms reported; exam is relatively unchanged from previous visit; continue with current medication s -enteric-c oated aspirin 81 mg p.o. daily, atenolol 50 mg 1 p.o. nightly, colestipol 1 g tablet p.o. 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 Cardiac exam today was benign. No new recommenda tions at this time Essential hypertension 55907842 I10 BP today was = 122/65 mmHg; continue with current med. -Atenolol 50 mg p.o. nightly patient is recommende d to check BPs at home periodical ly & bring BP log to next visit. A low sodium (< 2000 mg/day) diet is also recommende d. [id number] MIGUEL SALAZAR MD CARDIOLOG Y [address] [place] [address] 02/28/2024 14:13:45 02/28/2024 15:43:14 Essential hypertension 38008771 I10 BP today was = 120/68 mmHg; continue with current med. - Atenolol 50 mg p.o. nightly patient is recommende d to check BPs at home periodical ly & bring BP log to next visit. A low sodium (< 2000 mg/day) diet is also recommende d. Obesity 477958637 E66.9 patient's BMI today was = 34.0; recommend weight loss for beneficial effects on health. Coronary atherosclerosis 125905601 I25.10 patient with history of CAD, history of CABG-see HPI for detail; no new symptoms reported; exam is relatively unchanged from previous visit; continue with current medication s -enteric-c oated aspirin 81 mg p.o. daily, atenolol 50 mg 1 p.o. nightly, colestipol 1 g tablet p.o. twice daily. 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 Cardiac exam today was benign. No new recommenda tions at this time Palpitations 33762328 R0 0.2 The etiology of the patient's [...] the goal of reducing palpitatio n burden. 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 Cardiac exam today was benign. No new recommenda tions at this time Essential hypertension 47329119 I10 BP today was = 124/66 mmHg; continue with current med. - Atenolol 50 mg p.o. nightly patient is recommende d to check BPs at home periodical ly & bring BP log to next visit. A low sodium (< 2000 mg/day) diet is also recommende d. Palpitations 12526924 R0 0.2 The etiology of the patient's [...] goal of reducing palpitatio n burden. Obesity 066330903 E66.9 patient's BMI today was = 34.4; recommend weight loss for beneficial effects on health. 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 Cardiac exam today was benign. No new recommenda tions at this time Essential hypertension 86567342 I10 BP today was = 140/70 mmHg, HR=65 bpm; continue with current med. - Atenolol 50 mg p.o. nightly patient is recommende d to check BPs at home periodical ly & bring BP log to next visit. A low sodium (< 2000 mg/day) diet is also recommende d. Palpitations 71455782 R0 0.2 The etiology of the patient's [...] goal of reducing palpitatio n burden. Obesity 840007768 E66.9 patient's BMI today was = 34.4; recommend weight loss for beneficial effects on health. Gastroesop hageal reflux disease 657404722 K21.9 Patient reports that her chest discomfort [...] OF [place] (MEDICARE [place]MENT[place] [id number] Gina Haas [id number] Gina Haas 05/18/2025 1 [place] Gina Hector [id number] Gina Haas 10/07/2020 2 [place] [id number] Ginarudi Hector [id number] Gina Hector Notes Date Note Type Note Provider Name and Address Organization Details Recorded Time 04/19/2023 text/html ROS as noted in the HPI Ms. Hector is a very pleasant, 77 [...] graft angiography. This was carried out by ca on March 10 and revealed ostial RCA [...] is reported as stable. MIGUEL SALAZAR MD [address] [place] [address], [phone], [facility] 04/19/2023 12:47:20 10/23/2023 text/html ROS as noted in the HPI Ms. Hector is a very pleasant, 78 [...] a scheduled follow-up visit. MIGUEL SALAZAR MD [address] [place] [address], [phone], [facility] 10/23/2023 14:47:35 02/28/2024 text/html ROS as noted in the HPI Ms. Hector is a very pleasant, 78 [...] has been evaluated in the ER at [facility] on 01/15/2024 for chest pain. She was ruled out for ACS, and sent home. Since then, she reports occasional SOA/THOMPSON and chest discomfort as well as palpitations. She went to the ER twice more last month, and wonders if her recent symptoms were related to anxiety. Patient returns to the clinic today for a scheduled follow-up visit. MIGUEL SALAZAR MD [address] [place] [address], [id number], [facility] 02/28/2024 18:50:28 04/24/2024 text/html ROS as noted in the HPI Ms. Hector is a very pleasant, 78 [...] in the left circumflex. Bypass imaging revealed OLPEZ-LAD that was patent, SVG-distal RCA that was [...] has been evaluated in the ER at [facility] on 01/15/2024 for chest pain. She [...] a scheduled follow-up visit. MIGUEL SALAZAR MD [address] [place] [address], [phone], [facility] 04/26/2024 11:11:23 10/29/2024 text/html ROS as noted in the HPI Ms. Hector is a very pleasant, 79 [...] has been evaluated in the ER at [facility] on 01/15/2024 for chest pain. She [...] a scheduled follow-up visit. MIGUEL SALAZAR MD [address] [place] [address], [phone], [place] [facility] 10/29/2024 19:38:08 OBGyn Episode No OBEpisode recorded.
--- OUTSIDE RECORDS SUMMARY | 2025-06-05 08:57 | XMS_ITS | Data Portability ---
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 Plan of Treatment [...] By Organization Details Last Modified Time 09/09/2019 [id number] gout: care instructions [email or web address] Not available 09/09/2019 09:47:00 thrombocytopenia : care instructions [email or web address] Not available 09/09/2019 09:47:00 body mass index: care instructions [email or web address] Not available 09/09/2019 09:47:00 Body Mass Index: Care Instructions-LC [email or web address] Not available 09/09/2019 09:46:59 learning about healthy weight [email or web address] Not available 09/09/2019 09:47:00 rheumatoid arthritis diet: care instructions [email or web address] Not available 09/09/2019 09:47:00 Rheumatoid Arthritis (RA): Care Instructions [email or web address] Not available 09/09/2019 09:47:00 Reason for Referral None Reported. Results Created Date Observation Date Name Description Value Unit Range Abnormal Flag Note LastModifiedBy Organization Detail LastModifiedTime 09/09/20 19 09/09/2019 CBC w/ auto diff white blood cells 5.7 K/uL 3.8-10 .8 normal Not Available [facility] [address] [place] [address], [address], 09/09/2019 10:28:34 09/09/20 19 09/09/2019 CBC w/ auto diff red blood cells 4.35 M/uL 3.80-5 .20 normal Not Available [facility] [address] [place] [address], [address], 09/09/2019 10:28:34 09/09/20 19 09/09/2019 CBC w/ auto diff hemoglobin 14.2 g/dL 12.0-1 6.0 normal Not Available [facility] [address] [place] [address], [address], 09/09/2019 10:28:34 09/09/20 19 09/09/2019 CBC w/ auto diff hematocrit 41.2 % 35.0-4 7.0 normal Not Available [facility] [address] [place] [address], [address], 09/09/2019 10:28:34 09/09/20 19 09/09/2019 CBC w/ auto diff MCV 95 fL 80-100 normal Not Available [facility] [address] [place] [address], [address], 09/09/2019 10:28:34 09/09/20 19 09/09/2019 CBC w/ auto diff MCH 33 pg 26-35 normal Not Available [facility] [address] [place] [address], [address], 09/09/2019 10:28:34 09/09/20 19 09/09/2019 CBC w/ auto diff MCHC 34 g/dL 32-36 normal Not Available [facility] [address] [place] [address], [address], 09/09/2019 10:28:34 09/09/20 19 09/09/2019 CBC w/ auto diff RDW 13.8 % 11.0-1 5.0 normal Not Available [facility] [address] [place] [address], [address], 09/09/2019 10:28:34 09/09/20 19 09/09/2019 CBC w/ auto diff MPV 9.2 fL 6.2-10 .5 normal Not Available [facility] [address] [place] [address], [address], 09/09/2019 10:28:34 09/09/20 19 09/09/2019 CBC w/ auto diff platelet count 128 K/uL 130-40 0 low Not Available [facility] [address] [place] [address], [address], 09/09/2019 10:28:34 09/09/20 19 09/09/2019 CBC w/ auto diff neutrophil,a bsolute 4.4 K/uL 1.6-8. 4 normal Not Available [facility] [address] [place] [address], [address], 09/09/2019 10:28:34 09/09/20 19 09/09/2019 CBC w/ auto diff lymphocyte,a bsolute 0.7 K/uL 0.4-5. 1 normal Not Available [facility] [address] [place] [address], [address], 09/09/2019 10:28:34 09/09/20 19 09/09/2019 CBC w/ auto diff monocyte,abs olute 0.5 K/uL 0.0-1. 2 normal Not Available [facility] [address] [place] [address], [address], 09/09/2019 10:28:34 09/09/20 19 09/09/2019 CBC w/ auto diff eosinophil,a bsolute 0.1 K/uL 0.0-0. 8 normal Not Available [facility] [address] [place] [address], [address], 09/09/2019 10:28:34 09/09/20 19 09/09/2019 CBC w/ auto diff basophil,abs olute 0.0 K/uL 0.0-0. 3 normal Not Available [facility] [address] [place] [address], [address], 09/09/2019 10:28:34 09/09/20 19 09/09/2019 CBC w/ auto diff % neutrophils 76.0 % 42.0-7 8.0 normal Not Available [facility] [address] [place] [address], [address], 09/09/2019 10:28:34 09/09/20 19 09/09/2019 CBC w/ auto diff % lymphocytes 12.6 % 11.0-4 7.0 normal Not Available [facility] [address] [place] [address], [address], 09/09/2019 10:28:34 09/09/20 19 09/09/2019 CBC w/ auto diff % monocytes 8.8 % 0.0-11 .0 normal Not Available [facility] [address] [place] [address], [address], 09/09/2019 10:28:34 09/09/20 19 09/09/2019 CBC w/ auto diff % eosinophils 1.9 % 0.0-7. 0 normal Not Available [facility] [address] [place] [address], [address], 09/09/2019 10:28:34 09/09/2009/09/2019 CBC w/ auto diff % basophils 0.7 % 0.0-3. 0 normal Not Available [facility] [address] [place] [address], [address], 09/09/2019 10:28:34 09/09/20 19 09/09/2019 CBC w/ auto diff nucleated red cells 0.0 % 0.0-0. 9 normal Not Available [facility] [address] [place] [address], [address], 09/09/2019 10:28:34 09/09/20 19 09/09/2019 CBC w/ auto diff nucleated RBCs, absolute 0.00 K/uL not estab. normal Not Available [facility] [address] [place], [address], 09/09/2019 10:28:34 09/09/2009/09/2019 ldh, serum or plasm a LDH 248 U/L 135-21 4 high Not Available [facility] [address] [place], [address], 09/09/2019 11:26:41 09/09/2009/09/2019 vitam in B12 + folat e, serum or blood folic acid 18.4 NG/mL 4.8-24 .2 normal Not Available [facility] [address] [place], [address], 09/09/2019 11:43:22 09/09/20 19 09/09/2019 vitam in B12 + folat e, serum or blood vitamin B12 718 pg/mL 232-12 45 normal Not Available [facility] [address] [place], [address], 09/09/2019 11:43:22 09/09/2009/19/2019 JAYDEN (anti nucle ar [...] Patte rns (http s://d oi.or g/10. 1515/ [facility]- 2017- 0052) For addit ional infor roxanna monge refer to http: //sandip Barrientosia jovanni ics.c om/fa q/FAQ 177 (This link is being provi ded for infor david darnell/ educa sidney l purpo ses only. ) TEST PERFO RMED AT: [facility] [address] [place] [address] WHIT Carranza MD Not Available [facility] [address] [place] [address], [address], 09/19/2019 16:56:22 04/20/20 20 04/20/2020 CBC w/ auto diff white blood cells 5.9 K/uL 3.8-10 .8 normal Not Available [facility] [address] [place] [address], [address], 04/20/2020 11:52:50 04/20/20 20 04/20/2020 CBC w/ auto diff red blood cells 4.40 M/uL 3.80-5 .20 normal Not Available [facility] [address] [place] [address], [address], 04/20/2020 11:52:50 04/20/2004/20/2020 CBC w/ auto diff hemoglobin 14.5 g/dL 12.0-1 6.0 normal Not Available [facility] [address] [place] [address], [address], 04/20/2020 11:52:50 04/20/2004/20/2020 CBC w/ auto diff hematocrit 42.0 % 35.0-4 7.0 normal Not Available [facility] [address] [place] [address], [address], 04/20/2020 11:52:50 04/20/20 20 04/20/2020 CBC w/ auto diff MCV 96 fL 80-100 normal Not Available [facility] [address] [place] [address], [address], 04/20/2020 11:52:50 04/20/20 20 04/20/2020 CBC w/ auto diff MCH 33 pg 26-35 normal Not Available [facility] [address] [place] [address], [address], 04/20/2020 11:52:50 04/20/20 20 04/20/2020 CBC w/ auto diff MCHC 34 g/dL 32-36 normal Not Available [facility] [address] [place] [address], [address], 04/20/2020 11:52:50 04/20/20 20 04/20/2020 CBC w/ auto diff RDW 13.6 % 11.0-1 5.0 normal Not Available [facility] [address] [place] [address], [address], 04/20/2020 11:52:50 04/20/20 20 04/20/2020 CBC w/ auto diff MPV 9.0 fL 6.2-10 .5 normal Not Available [facility] [address] [place] [address], [address], 04/20/2020 11:52:50 04/20/20 20 04/20/2020 CBC w/ auto diff platelet count 132 K/uL 130-40 0 normal Not Available [facility] [address] [place] [address], [address], 04/20/2020 11:52:50 04/20/20 20 04/20/2020 CBC w/ auto diff neutrophil,a bsolute 3.9 K/uL 1.6-8. 4 normal Not Available [facility] [address] [place] [address], [address], 04/20/2020 11:52:50 04/20/20 20 04/20/2020 CBC w/ auto diff lymphocyte,a bsolute 1.3 K/uL 0.4-5. 1 normal Not Available [facility] [address] [place] [address], [address], 04/20/2020 11:52:50 04/20/20 20 04/20/2020 CBC w/ auto diff monocyte,abs olute 0.6 K/uL 0.0-1. 2 normal Not Available [facility] [address] [place] [address], [address], 04/20/2020 11:52:50 04/20/20 20 04/20/2020 CBC w/ auto diff eosinophil,a bsolute 0.1 K/uL 0.0-0. 8 normal Not Available [facility] [address] [place] [address], [address], 04/20/2020 11:52:50 04/20/20 20 04/20/2020 CBC w/ auto diff basophil,abs olute 0.1 K/uL 0.0-0. 3 normal Not Available [facility] [address] [place] [address], [address], 04/20/2020 11:52:50 04/20/20 20 04/20/2020 CBC w/ auto diff % neutrophils 65.0 % 42.0-7 8.0 normal Not Available [facility] [address] [place] [address], [address], 04/20/2020 11:52:50 04/20/20 20 04/20/2020 CBC w/ auto diff % lymphocytes 21.6 % 11.0-4 7.0 normal Not Available [facility] [address] [place] [address], [address], 04/20/2020 11:52:50 04/20/20 20 04/20/2020 CBC w/ auto diff % monocytes 10.0 % 0.0-11 .0 normal Not Available [facility] [address] [place] [address], [address], 04/20/2020 11:52:50 04/20/20 20 04/20/2020 CBC w/ auto diff % eosinophils 2.5 % 0.0-7. 0 normal Not Available [facility] [address] [place] [address], [address], 04/20/2020 11:52:50 04/20/20 20 04/20/2020 CBC w/ auto diff % basophils 0.9 % 0.0-3. 0 normal Not Available [facility] [address] [place] [address], [address], 04/20/2020 11:52:50 04/20/20 20 04/20/2020 CBC w/ auto diff nucleated red cells 0.1 % 0.0-0. 9 normal Not Available [facility] [address] [place] [address], [address], 04/20/2020 11:52:50 04/20/20 20 04/20/2020 CBC w/ auto diff nucleated RBCs, absolute 0.00 K/uL not estab. normal Not Available [facility] [address] [place] [address], [address], 04/20/2020 11:52:50 04/20/20 20 04/20/2020 CMP, serum or plasm a glucose 109 mg/dL 74-100 high Not Available [facility] [address] [place] [address], [address], 04/20/2020 12:16:18 04/20/20 20 04/20/2020 CMP, serum or plasm a blood urea nitrogen 24 mg/dL 6-20 high Not Available [facility] [address] [place] [address], [address], 04/20/2020 12:16:18 04/20/20 20 04/20/2020 CMP, serum or plasm a creatinine 1.07 mg/dL 0.50-0 .95 high Not Available [facility] [address] [place] [address], [address], 04/20/2020 12:16:18 04/20/20 20 04/20/2020 CMP, serum or plasm a BUN/creatini ne ratio 22 (calc ) 10-20 high Not Available [facility] [address] [place] [address], [address], 04/20/2020 12:16:18 04/20/20 20 04/20/2020 CMP, serum or plasm a sodium 143 mmol/ L 136-14 5 normal Not Available [facility] [address] [place] [address], [address], 04/20/2020 12:16:18 04/20/20 20 04/20/2020 CMP, serum or plasm a potassium 4.3 mmol/ L 3.4-5. 0 normal Not Available [facility] [address] [place] [address], [address], 04/20/2020 12:16:18 04/20/20 20 04/20/2020 CMP, serum or plasm a chloride 107 mmol/ L 98-107 normal Not Available [facility] [address] [place] [address], [address], 04/20/2020 12:16:18 04/20/20 20 04/20/2020 CMP, serum or plasm a carbon dioxide 24 mmol/ L 20-32 normal Not Available [facility] [address] [place] [address], [address], 04/20/2020 12:16:18 04/20/20 20 04/20/2020 CMP, serum or plasm a anion gap 12 (calc ) 7-25 normal Not Available [facility] [address] [place] [address], [address], 04/20/2020 12:16:18 04/20/20 20 04/20/2020 CMP, serum or plasm a calcium 9.7 mg/dL 8.6-10 .2 normal Not Available [facility] [address] [place] [address], [address], 04/20/2020 12:16:18 04/20/20 20 04/20/2020 CMP, serum or plasm a total protein 7.0 g/dL 6.4-8. 3 normal Not Available [facility] [address] [place] [address], [address], 04/20/2020 12:16:18 04/20/20 20 04/20/2020 CMP, serum or plasm a albumin 4.4 g/dL 3.5-5. 2 normal Not Available [facility] [address] [place] [address], [address], 04/20/2020 12:16:18 04/20/20 20 04/20/2020 CMP, serum or plasm a globulin 2.6 g/dL_ (calc ) 1.5-4. 5 normal Not Available [facility] [address] [place] [address], [address], 04/20/2020 12:16:18 04/20/2004/20/2020 CMP, serum or plasm a albumin/glob ulin ratio 1.7 (calc ) 1.1-2. 5 normal Not Available [facility] [address] [place] [address], [address], 04/20/2020 12:16:18 04/20/20 20 04/20/2020 CMP, serum or plasm a bilirubin, total 0.7 mg/dL 0.1-1. 2 normal Not Available [facility] [address] [place] [address], [address], 04/20/2020 12:16:18 04/20/20 20 04/20/2020 CMP, serum or plasm a alkaline phosphatase 71 U/L 35-105 normal Not Available [facility] [address] [place] [address], [address], 04/20/2020 12:16:18 04/20/20 20 04/20/2020 CMP, serum or plasm a AST 26 U/L 0-32 normal Not Available [facility] [address] [place] [address], [address], 04/20/2020 12:16:18 04/20/20 20 04/20/2020 CMP, serum or plasm a ALT 21 U/L 0-33 normal Not Available [facility] [address] [place], [address], 04/20/2020 12:16:18 04/20/20 20 04/20/2020 CMP, serum or plasm a GFR 59 >= 60 abnormal Not Available [facility] [address] [place], [address], 04/20/2020 12:16:18 04/20/20 20 04/20/2020 CMP, serum [...] month s or longe r. Not Available [facility] [address] [place], [address], 04/20/2020 12:16:18 09/11/20 19 09/11/2019 US, abdom en, limit ed [facility] [address] [place] [address] Patien t Name: GINA Carranza Patien t [...] Jason Man MD on 2018 9:[email or web address] [place] [address] [facility] [address] [place], [address], 09/23/2019 15:38:59 Result Notes None recorded. Procedures Surgical History Date Name Laterality Status Provider Name and Address Organization Details Recorded Time CABG completed Salma Billings [facility] 09/09/2019 09:08:09 Cholecystectomy completed Salma Billings [facility] 09/09/2019 09:08:17 [facility] 09:08:34 Back Surgery completed Salmarik Billings [facility] 09/09/2019 09:08:47 wrist repair completed Salma Billings [facility] 09/09/2019 09:09:41 debridement of leg ulcer completed Salma Billings [facility] 09/09/2019 09:10:18 Imaging Results None recorded. Procedure Notes None recorded. Medical Equipment None Reported. Allergies Allergen ID Allergen Name Allergen Category Reaction Reaction Severity Criticality Documentation Date Start Date Code Code System Note Provider Name and Address Organization Details Recorded Time 057909 Motrin medicatio n itching Not available Not available 09/09/201992492 8 [facility] 09:01:45 464161 Product containin g penicilli n (product) medicatio n rash Not available Not available 09/09/2019 99841 8001 SNOMED Salma Billings [facility] 9 09:01:54 Medications Name Sig Start Date Stop Date Status Note LastModified by Organization Details LastModified Time Plaquenil 200 mg tablet Take 1 tablet twice a day by oral route. active Not Available Not Available No t Available vitamin [id number] B1 1,000 mcg-100 mg/mL injection solution Take [...] Updated DateTime 04/20/2020 98.6 [degF] Norma Salcido [facility] 0 04/20/2020 12:51:11 Date Recorded Body height Body mass index (BMI) Body weight Heart rate Oxygen saturation Oxygen saturation in Arterial blood by Pulse oximetry Systolic And Diastolic Provider Name and Address Organization Details Last Updated DateTime 0 157.48 cm 40.5 kg/m2 322644. 01 g 63 /min 97 % 97 % 130/72 mm[Hg] [facility] 0 13:02:17 Date Recorded Body weight Body mass index (BMI) Body height Heart rate Oxygen saturation Oxygen saturation in Arterial blood by Pulse oximetry Body temperature Systolic And Diastolic Provider Name and Address Organization Details Last Updated DateTime 9 179172. 08 g 41.2 kg/m2 157.48 cm 65 /min 96 % 96 % 98.9 [degF] 122/62 mm[Hg] [facility] 9 09:19:53 Date Recorded Body height Heart rate Body temperature Body mass index (BMI) Body weight Systolic And Diastolic Provider Name and Address Organization Details Last Updated DateTime 9 157.48 cm 68 /min 99.1 [degF] 41.4 kg/m2 591001. 63 g 136/66 mm[Hg] Yessi King [facility] 9 15:09:42 Social History Question Answer Notes LastModified by Organizat ion Details LastModified Time Tobacco Smoking Status Never Smoker Yessi King [facility] 09/23/2019 15:10:42 How Much Tobacco Do You Chew? None [email or web address] Information not available 09/23/2019 Live Alone Or With Others? Alone [email or web address] Information not available 09/23/2019 Exposure To Smoke No [email or web address] Information not available 09/23/2019 Marital Status [email or web address] Informatio n not available 09/23/2019 What Was The Date Of Your Most Recent Tobacco Screening? 09/23/2019 [email or web address] Information not available 09/23/2019 How Many Children Do You Have? 1 Son 23 Years Ago [email or web address] Information not available 09/23/2019 How Much Tobacco Do You Smoke? No Information not available 04/20/2020 On What Date Was Tobacco Cessation Counseling Provided? 09/23/2019 [email or web address] Information not available 09/23/2019 How Many Years Have You Smoked Tobacco? 0 Information not available 04/20/2020 Sex: Female Functional Status Question Answer Note LastModified by [employer] ion Details LastModified Time What is your level of alcohol consumption? None [email or web address] Information not available 09/23/2019 Do you or have you ever used smokeless tobacco? Never used smokeless tobacco [email or web address] Information not available 09/23/2019 What is your occupation? Retired [email or web address] Information not available 09/23/2019 Do you or have you ever used e-cigarettes or vape? Never used electronic cigarettes [email or web address] Information not available 09/23/2019 Mental Status None [...] 09:10:42 Medical History Condition Response Heart Attack (ME) Y Heart Disease Y Arthritis Y Depression Y Gynecological HistoryNo gynecological history recorded. Obstetrics History GPAL:G 0 P 0 0 0 0 Past Encounters Encounter ID Performer Location Encounter Start Date Encounter Closed Date Diagnosis/Indication Diagnosis SNOMED-CT Code Diagnosis ICD10 Code Diagnosis Note [id number] JASON WEISS MD CARDIOLOG [place] [address] [place] [id number] 04/03/2017 13:10:27 04/03/2017 13:49:50 [id number] JASON WEISS MD CARDIOLOG Y [place] [address] [place] [id number] 09/25/2017 12:53:34 09/25/2017 14:36:54 [id number] JASON WEISS MD CARDIOLOG Y [address] [place],[address] [place], [place] [address] 04/02/2018 09:28:26 04/02/2018 11:01:03 [id number] JASON WEISS MD CARDIOLOG Y [address] [place],[address] [place], [place] [address] 5 10/22/2018 13:48:50 10/22/2018 15:10:00 [id number] JASON WEISS MD CARDIOLOG Y [address] [place] [id number] 1 02/07/2019 11:09:23 02/07/2019 13:35:19 [id number] JASON WEISS MD CARDIOLOG Y [address] [place], [place] [address] 05/08/2019 13:19:05 05/08/2019 13:58:46 [id number] FROILAN BAGLEY MD HEM/ONC [place] [facility] [address] [place], [place] [address] 1 09/09/2019 08:55:56 09/09/2019 09:56:44 Rheumatoid arthritis 82182948 M06.[address] Tom. Pt is on plaquenil and cevimeline . Gout 91793577 M10.9 Pt has begun colchicine . Body mass index 30+ - obesity 886292272 Z68.41 Encourage exercise and weight loss. Leukopenia 31689550 D72. 819 Differenti al includes for this and thrombocyt openia include vitamin deficiency , Felty's syndrome as well as LGL. Also, worrisome for another autoimmune such s lupus. Medication effect including colchicine and plaquenil. We will obtain here flow cytometry, CBC, LDH, JAYDEN, splenic US, B12/folate . Thrombocyt openic disorder 810930434 D69.6 As above. [id number] FROILAN BAGLEY MD HEM/ONC [place] [facility] [address] [place], [place] [address] 1 09/23/2019 14:46:58 09/23/2019 15:53:02 Leukopenia 72238600 D72.819 Differenti al includes for this and [...] dilatation most likely secondary to cholecyste ctomy. [id number] JASON WEISS MD CARDIOLOG Y [address] [place] [id number] 10/24/2019 12:38:41 10/24/2019 13:57:59 [id number] FROILAN BAGLEY MD HEM/ONC [place] [facility] [address] [place] [id number] 04/20/2020 12:49:16 04/20/2020 13:27:21 Leukopenia 89901925 D72.819 Labs today are normal. This has [...] dilatation most likely secondary to cholecyste ctomy. [id number] JASON WEISS MD CARDIOLOG Y [address] [place] [id number] 05/04/2020 13:42:38 05/04/2020 14:45:16 [id number] JASON WEISS MD CARDIOLOG Y [address] [place], [place] [address] 5 11/23/2020 14:04:41 11/23/2020 15:54:54 [id number] JASON WEISS MD CARDIOLOG Y [address] [place] [id number] 04/22/2021 10:16:00 04/22/2021 10:42:04 [id number] YELENA GARCIA PA-C CARDIOLOG Y [address] [place] [address] 10/20/2021 13:30:08 10/20/2021 15:19:47 [id number] YELENA GARCIA PA-C CARDIOLOG Y [address] [place] [address] 04/25/2022 13:10:58 04/25/2022 14:17:13 [id number] YELENA GARCIA PA-C CARDIOLOG Y [address] [place] [address] 10/25/2022 13:07:16 10/25/2022 14:19:06 [id number] MIGUEL SALAZAR MD CARDIOLOG Y [place] [address] [place] [address] 1 04/19/2023 08:57:28 04/19/2023 12:59:26 [id number] MIGUEL SALAZAR MD CARDIOLOG Y [place] [address] [place] [address] 1 10/23/2023 13:19:59 10/23/2023 15:24:43 [id number] MIGUEL SALAZAR MD CARDIOLOG Y SB [address] [place] [address] 1 02/28/2024 14:13:45 02/28/2024 15:43:14 [id number] MIGUEL SALAZAR MD CARDIOLOG Y SB [address] [place] [address] 1 04/24/2024 13:47:52 05/02/2024 11:17:54 [id number] MIGUEL SALAZAR MD CARDIOLOG Y SB [address] [place] [address] 1 10/29/2024 12:55:01 10/29/2024 14:32:18 Health Concerns [...] OF [place] ([place]IC[place] [id number] Gina Hector [id number] Gina Hector 05/18/2025 1 [place] (MEDICARE) Gina Hector [id number] Gina Hector 10/07/2020 2 [place] [id number] Gina Hector [id number] Gina Hector Notes Date Note Type Note Provider Name and Address Organization Details Recorded Time 09/09/2019 text/html HPIReported b y PatientVisit DetailsFor advanced directives / biobank authorizations, patient reportsadvanced directives? yes. For discharge, patient reportsdischarge disposition stable.Distress ScreeningFor emotional problems, patient reportsdepression(anxi ety). For distress screening, patient reportshas the distress screening been completed in the last 45 days? yesanddistress level 5. For practical problems, patient reportsno practical problems. For family problems, patient reportsno family problems. For spiritual/lutheran, patient reportsspiritual/relig ious problems? no. For physical problems, patient reportsno physical problems.NutritionFor nutrition screening, patient reportsnutrition screening yes,nutrition counseling last 6 months? no, andnutrition protocol implemented? no. Mrs. Hector is a pleasant 74 yo [...] ROS per intake note. FROILAN BAGLEY MD [address] [place], [address], [facility] 09/09/2019 09:47:03 09/23/2019 text/html HPIReported b y PatientDistress ScreeningFor practical problems, patient reportshousing stress,financial/insur ance stress, andtransportation stress. For family problems, patient reportsfamily health issue. For emotional problems, patient reportsdepression,nerv ousness, andworry. For physical problems, patient reportsdiarrhea,eating /ingestion problem, andfatigue. For distress screening, patient reportshas the distress screening been completed in the last 45 days? yesanddistress level 3. For spiritual/lutheran, patient reportsspiritual/relig ious problems? no.NutritionFor nutrition screening, patient reportsnutrition screening no.ROS as noted in the HPI Mrs. Hector is a pleasant 74 yo [...] polyps, diverticulosis per pt. FROILAN BAGLEY MD [address] [place] [address], [phone], [facility] 09/23/2019 15:46:20 04/20/2020 text/html HPIReported b y PatientVisit DetailsFor advanced directives / biobank authorizations, patient reportsadvanced directives? no. For discharge, patient reportsdischarge disposition stable.Distress ScreeningFor practical problems, patient reportstransportation stressbut reportsno practical problems. For emotional problems, patient reportsdepression,fear s,nervousness,sadness, andworry. For physical problems, patient reportseating/ingestio n problem,fatigue, andfeeling swollen. For distress screening, patient reportshas the distress screening been completed in the last 45 days? yesanddistress level 3. For family problems, patient reportsno family problems. For spiritual/lutheran, patient reportsspiritual/relig ious problems? no.NutritionFor nutrition screening, patient reportsnutrition screening no.ROS as noted in the HPI Mrs. Hector is a pleasant 74 yo [...] care of Dr. Perez. FROILAN BAGLEY MD [address] [place] [address], [phone], [facility] 04/20/2020 13:19:58 OBGyn Episode No OBEpisode recorded.
--- OUTSIDE RECORDS SUMMARY | 2025-06-05 08:57 | XMS_ITS | Encounter Summary ---
Author Organization [facility] Address [address] [place] [address] Care Team Providers Care Plugman Name Role Phone José Miguel Verde MD Primary Care Provider [phone] Reason for Visit * Reason Comments Med Refill Encounter Details Date Type Department Care Team (Late st Contact Info) Description 04/04/2025 Refill [facility] RHEUMATOLOGY [address] [address] Nichole Loya, OTR TRUCK DRIVER [address] [id number] Social History Tobacco Use Types Packs/Day Years [...] Description 09/12/2025 1:00 PM EDT Office Visit [facility] RHEUMATOLOGY [address] [address] Nichole Loya, OTR TRUCK DRIVER [address] [facility] [address] [place] [address] documented as of this encounter Visit Diagnoses Not on filedocumented in this encounter Care Teams Plugman Relationship Specialty Start Date End Date José Miguel Verde MD [address] [facility] [address] [place] [address] PCP - General Adolescent Medicine 02/15/19 documented as of this encounter
--- OUTSIDE RECORDS SUMMARY | 2025-06-05 08:57 | XMS_ITS | Encounter Summary ---
Author Organization [employer] ([place], [place], [place], [place]) Address [address] [place] [address] Care Team Providers Care Director Of District Office Name Role Phone José Miguel Verde MD Primary Care Provider + [phone] Encounter Details Date Type Department Care Team (Late st Contact Info) Description 01/08/2019 Transcribed Document [facility] [place] [address] [place] [address] ProviderNitin MD [address], [place] [id number] Social History Tobacco Use Types Packs/Day Years [...] - Nitin ProviderMD - 01/08/2019 6:41 PM TOUCH UP EDGER ED Assessment Entered On: 01/08/2019 19:12 EST Performed On: 01/08/2019 19:11 EST by Roc Saenz RN ED Quick Look Assessment Level of Consciousness : Alert, Awake Affect/Behavior : Appropriate, Calm Orientation : Oriented x 4 Roc Saenz RN - 01/08/2019 19:11 EST ED General-Functional Assess Information Obtained From : Patient Communication Barrier : None Primary Language : Omani Any Spiritual/Cultural Needs or Requests : No [...] 01/08/2019 19:11 EST Electronically signed by Drew [facility] Conversion Doweling Machine Operator Cerner at 02/26/2023 11:00 PM CDT documented in this encounter Plan of Treatment Not on file documented as of this encounter Visit Diagnoses Not on filedocumented in this encounter Care Teams Director Of District Office Relationship Specialty Start Date End Date José Miguel Verde MD [address] [place] [address] PCP - General Adolescent Medicine 03/07/23 documented as of this encounter
--- OUTSIDE RECORDS SUMMARY | 2025-06-05 08:57 | XMS_ITS | Referral Summary ---
Author Organization [employer] ([place], [place], [place], [place]) Address [address] [place] [address] Care Team Providers Care Cost Accounting Clerk Name Role Phone José Miguel Verde MD Primary Care Provider + [phone] Allergies Active Allergy Reactions Criticality Noted Date [...] by mouth in the morning. Active pancrelipase, Jsh-Xjuk-Ozrs, (CREON) 36,000-114,000 - 180,000 unit CpDR capsule [...] Date Hamilton rded Speak language other than Citizen Of [place] at home Not on file 12/01/2023 Want [...] Advance Directives For more information, please contact: [phone] * Full Code (Latest Code Status on File) Date Activated Date Inactivated Comments 03/10/2023 5:00 PM 03/11/2023 12:05 PM * Full Code Date Activated Date Inactivated Comments 03/07/2023 2:51 PM 03/10/2023 5:00 PM Care Teams Cost Accounting Clerk Relationship Specialty Start Date End Date José Miguel Verde MD [address] [place] [address] PCP - General Adolescent Medicine 03/07/23
--- OUTSIDE RECORDS SUMMARY | 2025-06-05 08:57 | XMS_ITS | Encounter Summary ---
Author Organization [employer] ([place], [place], [place], [place]) Address [address] [place] [address] Care Team Providers Care Aeroplane Pilot Name Role Phone José Miguel Verde MD Primary Care Provider + [phone] Encounter Details Date Type Department Care Team (Late st Contact Info) Description 01/08/2019 Transcribed Document [facility] [place] Family Medicine [address] [place] [address] ProviderNitin MD [address] [place], [place] [id number] Social History Tobacco Use Types Packs/Day Years [...] - Nitin ProviderMD - 01/08/2019 11:23 PM SAIL FINISHER HAND ED Discharge Entered On: 01/08/2019 23:23 EST [...] 01/08/2019 23:23 EST Electronically signed by Drew, [facility] Conversion Frame Fixer Cerner at 02/26/2023 11:09 PM CDT documented in this encounter Plan of Treatment Not on file documented as of this encounter Visit Diagnoses Not on filedocumented in this encounter Care Teams Aeroplane Pilot Relationship Specialty Start Date End Date José Miguel Verde MD [address] [place] [address] PCP - General Adolescent Medicine 03/07/23 documented as of this encounter
--- OUTSIDE RECORDS SUMMARY | 2025-06-05 08:57 | XMS_ITS | Encounter Summary ---
Author Organization [employer] ([place], [place], [place], [place]) Address [address] [place] [address] Care Team Providers Care Staker Surveying Name Role Phone José Miguel Verde MD Primary Care Provider + [phone] Encounter Details Date Type Department Care Team (Late st Contact Info) Description 01/08/2019 Transcribed Document [facility] [place] [address] [place] [address] ProviderNitin MD [address], [place] [id number] Social History Tobacco Use Types Packs/Day Years [...] - Nitin ProviderMD - 01/08/2019 7:04 PM CODING SPEC Patient: GINA HECTOR Age: 73 years Sex: [...] noted. Histroy of triple bypass. 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 . History of Present Illness The patient [...] EST Height Source Stated Height Entry Format [place] Height/Length, MOLDOVAN (ft) 5 ft Height/Length MOLDOVAN 2 Inch CLINICALHEIGHT 157.48 cm Hannah Body Weight 49.73 kg Weight Source, ED Critical estimated dosing weight Weight Entry Format [place] Weight Austrian lb 230 lb CLINICALWEIGHT 104.55 kg Body [...] 18.0 % LOW Lymph # 1.04 x10(3)/uL [place] % 9.2 % HI [place] # 0.53 K/uL Eos % 0.5 % [...] appointment with her primary care doctor and professional athlete for discussion of recent ER visits. Patient [...] following educational materials: Gastroesophageal Reflux Disease, Adult, Autv-kh-Nqov, Food Choices for Gastroesophageal Reflux Disease, Adult, Tcgc-ya-Mnxl, Nonspecific Chest Pain, Cgxb-bm-Akvx. Follow up with: [facility] Within 2 to 3 days For further assistance with your Primary Care Physician please contact the Patient Resource Center at [phone]. Please follow up with Lester Peace.; MELVIN [...] on filedocumented in this encounter Care Teams Staker Surveying Relationship Specialty Start Date End Date José Miguel Verde MD [address] [place] [address] PCP - General Adolescent Medicine 03/07/23 documented as of this encounter
--- OUTSIDE RECORDS SUMMARY | 2025-06-05 08:57 | XMS_ITS | Encounter Summary ---
Author Organization [employer] ([place], [place], [place], [place]) Address [address] [place] [address] Care Team Providers Care Injury Prevention Coordinator Name Role Phone José Miguel Verde MD Primary Care Provider + [phone] Encounter Details Date Type Department Care Team (Late st Contact Info) Description 01/08/2019 Transcribed Document [facility] [place] [address] [place] [address] ProviderNitin MD [address], [place] [id number] Social History Tobacco Use Types Packs/Day Years [...] - Nitin ProviderMD - 01/08/2019 6:41 PM SPANISH INTERPRETER/TRANSLATOR ED Triage Entered On: 01/08/2019 18:57 EST Performed On: 01/08/2019 18:47 EST by Catherine Pugh, TRAINING DEVELOPMENT SPECIALIST Triage Across the Room Triage Date/Time : 01/08/2019 18:47 EST Chief Complaint : Pt presents to the ER with chest pain that started Monday. Pain was left sided that radiates across chest. Burning in nature. Slight nausea noted. Histroy of triple bypass. 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 Catherine Pugh, RN - 01/08/2019 18:47 EST DCP GENERIC CODE Tracking Acuity : 3 - Urgent Tracking Group : [facility] ED Catherine Pugh RN - [...] PNED ; Probability: 0 ; Diagnosis Code: [id number] ED Height and Weight Height Source : Stated Height Entry Format : Opal Height, Feet : 5 ft(Converted to: 152 cm, 60 Inch) Height, Inches : 2 Inch(Converted to: 0 ft 2 Inch, 5.08 cm) Clinical Height : 157.48 cm Weight Source, ED : Critical estimated dosing weight Weight Entry Format : Opal Weight, Pounds : 230 lb Clinical Dosing Weight : 104.55 kg Body Surface Area (BSA) : 2.03 m2 Body Mass Index : 42.2 kg/m2 (>HHI) [place] Body Weight (IBW) : 49.73 kg Catherine Pugh RN - 01/08/2019 18:47 EST Electronically signed by Drew [facility] Conversion Handle And Vent Machine Operator Cerner at 02/26/2023 11:09 PM CDT documented in this encounter Plan of Treatment Not on file documented as of this encounter Visit Diagnoses Not on filedocumented in this encounter Care Teams Injury Prevention Coordinator Relationship Specialty Start Date End Date José Miguel Verde MD [address] [place] [address] PCP - General Adolescent Medicine 03/07/23 documented as of this encounter
--- OUTSIDE RECORDS SUMMARY | 2025-06-05 08:57 | XMS_ITS | Encounter Summary ---
Author Organization [employer] ([place], [place], [place], [place]) Address [address] [place] [address] Care Team Providers Care Director Of Community Education Name Role Phone José Miguel Verde MD Primary Care Provider + [phone] Encounter Details Date Type Department Care Team (Late st Contact Info) Description 01/09/2019 Transcribed Document [facility] [place] Family Medicine [address] [place] [address] ProviderNitin MD [address], [place] [phone] Social History Tobacco Use Types Packs/Day Years [...] - Historical ProviderMD - 01/09/2019 8:32 AM FRUIT RAISER CR Chest 1 Vw Portable Ordered: 01/08/2019 Modified Reason for Exam: chest pain 01/09/2019 07:59 01/09/2019 08:32 (ЕЛЕНА LINDSEY) No further action required documented in this encounter Plan of Treatment Not on file documented as of this encounter Visit Diagnoses Not on filedocumented in this encounter Care Teams Director Of Community Education Relationship Specialty Start Date End Date José Miguel Verde MD [address] [place] [address] PCP - General Adolescent Medicine 03/07/23 documented as of this encounter
--- OUTSIDE RECORDS SUMMARY | 2025-06-05 08:57 | XMS_ITS | Encounter Summary ---
Author Organization [employer] ([place], [place], [place], [place]) Address [address] [place] [address] Care Team Providers Care Inclusion Manager Name Role Phone José Miguel Verde MD Primary Care Provider + [phone] Encounter Details Date Type Department Care Team (Late st Contact Info) Description 01/08/2019 Transcribed Document [facility] [place] Family Medicine [address] [place] [address] ProviderNitin MD [address] [place] [address] Social History Tobacco Use Types [...] - Nitin ProviderMD - 01/08/2019 11:21 PM FRONT END SOFTWARE DEVELOPER Electronically signed by [facility] Conversion Paper Winder Jessica at 02/26/2023 11:12 PM CDT documented in this encounter Plan of Treatment Not on file documented as of this encounter Visit Diagnoses Not on filedocumented in this encounter Care Teams Inclusion Manager Relationship Specialty Start Date End Date José Miguel Verde MD [address] [place] [address] PCP - General Adolescent Medicine 03/07/23 documented as of this encounter
--- OUTSIDE RECORDS SUMMARY | 2025-06-05 08:57 | XMS_ITS | Encounter Summary ---
Author Organization [employer] ([place], [place], [place], [place]) Address [address] [place] [address] Care Team Providers Care Supervisor Model Making Name Role Phone José Miguel Verde MD Primary Care Provider + [phone] Encounter Details Date Type Department Care Team (Late st Contact Info) Description 01/08/2019 Transcribed Document [facility] [place] Family Medicine [address] [place] [address] ProviderNitin MD [address] [place] [address] Social History Tobacco Use Types [...] Nitin Bueno MD - 01/08/2019 11:24 PM REGULATORY COMPLIANCE DIRECTOR [address] [place] [address] Patient Information Name: GINA HECTOR Age: [...] please contact the Patient Resource Center at [phone]. Please follow up with Lester Peace. With: Address: When: MELVIN RASCON [address] [place] [address], [address] [place] [phone] Business (1) Within 2 to 3 days [...] you start to feel better. ??? Take wapr-rqa-lkwwgyc and prescription medicines only as told by [...] 04/17/2009 Document Revised: 07/24/2017 Document Reviewed: 07/24/2017 [employer] Interactive Patient Education ? 2017 [employer] Food Choices for Gastroesophageal Reflux Disease, [...] VegetablesTomatoes. Tomato juice. Tomato and spaghetti sauce. [place]cadine peppers. Onion and garlic. Horseradish. FruitsOranges, grapefruit, [...] spearmint. Fats and OilsHigh-fat foods. This includes Yoruba fries and potato chips. OtherVinegar. Strong spices. [...] 04/30/2013 Document Revised: 04/06/2017 Document Reviewed: 09/03/2014 [employer] Interactive Patient Education ? 2017 [employer] Gastroesophageal Reflux Disease, Adult Introduction Normally, [...] vinegar, hot sauces, and BBQ sauce. ? Horton fruit juices and citrus fruits, such as oranges, olga, and limes. ? Tomato-based foods, such as red sauce, chili, salsa, and pizza with red sauce. ? Fried and fatty foods, such as donuts, tunisian fries, potato chips, and high-fat dressings. ? [...] any changes in your symptoms. ??? Take tfce-sno-vefxevt and prescription medicines only as told by [...] range between ( 0.0 and 7.0 ) [place] #: 0.53 K/uL -- Normal range between ( 0.16 and 1.00 ) Eos #: 0.03 x10(3)/uL -- Normal range between ( 0.00 and 0.80 ) [place] %: 9.2 % -- Normal range between [...] verify that HECTORGINA Carranza was seen at [facility] on ,01/08/2019 23:24:10. This is [...] along the way. As a healthcare provider, [facility] recommends that you stop smoking. Assistance with quitting is available by contacting 0-743-CEUS-NOW. This is a free resource providing counseling, [...] Electronic Communications Privacy Act 18 U.S.C. ???Sections 9984-8356,?? and contain information intended for the specified [...] computer, smartphone, or tablet. Just go to [employer] to get started. Questions? Call . Acknowledgment [...] Instructions: Emergency Physician: Electronically signed by Drew, [facility] Conversion Tetryl Screen Operator Cerner at 02/26/2023 11:12 PM CDT documented in this encounter Plan of Treatment Not on file documented as of this encounter Visit Diagnoses Not on filedocumented in this encounter Care Teams Supervisor Model Making Relationship Specialty Start Date End Date José Miguel Verde MD [address] [place] [address] PCP - General Adolescent Medicine 03/07/23 documented as of this encounter
--- OUTSIDE RECORDS SUMMARY | 2025-06-05 08:57 | XMS_ITS | Encounter Summary ---
Author Organization [employer] ([place], [place], [place], [place]) Address [address] [place] [address] Care Team Providers Care Museum Technician Name Role Phone José Miguel Verde MD Primary Care Provider + [phone] Encounter Details Date Type Department Care Team (Late st Contact Info) Description 01/08/2019 Transcribed Document [facility] [place] [address] [place] [address] ProviderNitin MD [address], [place] [id number] Social History Tobacco Use Types Packs/Day Years [...] - Nitin ProviderMD - 01/08/2019 11:24 PM CREDIT ADJUSTER [address] [place] [address] PERSON INFORMATION Name GINA HECTOR Age 73 Years 1945 Sex Female Language Cambodian PCP MELVIN RASCON MD-INT Marital Status Med Service Emergency Medicine Acct# Arrival 01/08/2019 18:41:00 Visit Reason Chest pain; CHEST PAIN/LEFT ARM PAIN Acuity 3 - Urgent LOS 000 04:43 Depart Date: 01/08/19 11:24 PM Address: [address] [facility] [address] [facility] [address] Comment: PROVIDER INFORMATION Provider Role Assigned Unassigned BEAR KING ARNP ED Physician 01/08/2019 18:50:05 Roc Saenz, OFFICE INSPECTOR Nurse 01/08/2019 18:59:17 KEYUR BROWN MD ED [...] PATIENT EDUCATION INFORMATION Instructions: Nonspecific Chest Pain, Qlib-ni-Tkmc; Food Choices for Gastroesophageal Reflux Disease, Adult, Vzyx-td-Ijjo; Gastroesophageal Reflux Disease, Adult, Zvbc-pt-Iiwc Follow up: With: Address: When: Return to Emergency Department Within As needed Comments: Follow-up as instructed Return if condition worsens With: Address: When: [facility] Within 2 to 3 days Comments: For further assistance with your Primary Care Physician please contact the Patient Resource Center at [phone]. Please follow up with Lester Peace. With: Address: When: MELVIN RASCON [address] [facility], [address] [place] [phone] Business (1) Within 2 to 3 days Comment: Electronically signed by Sarah Russell Conversion Nuclear Process Engineer Andersonner at 02/26/2023 10:59 PM CDT documented in this encounter Plan of Treatment Not on file documented as of this encounter Visit Diagnoses Not on filedocumented in this encounter Care Teams Museum Technician Relationship Specialty Start Date End Date José Miguel Verde MD [address] [place] [address] PCP - General Adolescent Medicine 03/07/23 documented as of this encounter
--- OUTSIDE RECORDS SUMMARY | 2025-06-05 08:58 | XMS_ITS | Encounter Summary ---
Author Organization [employer] ([place], [place], [place], [place]) Address [address] [place] [address] Care Team Providers Care Folder Machine Adjuster Name Role Phone José Miguel Verde MD Primary Care Provider + [phone] Encounter Details Date Type Department Care Team (Late st Contact Info) Description 07/15/2020 Transcribed Document [facility] [place] Family Medicine [address] [place] [address] ProviderNitin MD [address] [place], [place] [id number] Social History Tobacco Use Types Packs/Day Years [...] Communication Barrier : None Primary Language : Citizen Of [place] Any Spiritual/Cultural Needs or Requests : No [...] - 07/15/2020 12:20 EDT Electronically signed by [facility] Conversion Auto Travel Counselor Cerner at 02/26/2023 11:14 PM CDT documented in this encounter Plan of Treatment Not on file documented as of this encounter Visit Diagnoses Not on filedocumented in this encounter Care Teams Folder Machine Adjuster Relationship Specialty Start Date End Date José Miguel Verde MD [address] [place] [address] PCP - General Adolescent Medicine 03/07/23 documented as of this encounter
--- OUTSIDE RECORDS SUMMARY | 2025-06-05 08:58 | XMS_ITS | Encounter Summary ---
Author Organization [employer] ([place], [place], [place], [place]) Address [address] [place] [address] Care Team Providers Care Oversize Load Pilot Escort Name Role Phone José Miguel Verde MD Primary Care Provider + [phone] Encounter Details Date Type Department Care Team (Late st Contact Info) Description 07/15/2020 Transcribed Document [facility] [place] Family Medicine [address] [place] [address] ProviderNitin MD [address] [place] [address] Social History Tobacco Use Types [...] Source Stated Height Entry Format Beryl Height/Length, KYRGYZ (ft) 5 ft Height/Length KYRGYZ 2 Inch CLINICALHEIGHT 157.48 cm [place] Body Weight 49.73 kg Weight Source, ED Critical estimated dosing weight Weight Entry Format [place] Weight Afghan lb 222 lb CLINICALWEIGHT 100.91 kg Body [...] Triage: ED C-SSRS: ED Clinical Reconciliation: ED financial management analyst: EKG: Extra Blue Tube: Extra Gold Tube: Troponin I Ultra: Troponin I Ultra: . poultry process worker: Initial EKG shows normal sinus rhythm with incomplete right bundle branch block rate of 60 bpm reviewed by TORIBIO Ribeiro. Repeat EKG shows sinus bradycardia with incomplete right bundle branch block at a rate of 56 bpm reviewed by TORIIBO Peterson. Results review: Lab results : Lab [...] % LOW Lymph # 0.97 x10(3)/uL LOW [place] % 9.3 % HI [place] # 0.55 K/uL Eos % 1.0 % Eos # 0.06 x10(3)/uL Baso % 0.5 % Baso # 0.03 x10(3)/uL Slide Review No IG# 0.02 x10(3)/uL IG% 0.30 % . Radiology results: Radiology Results (Last 48 hours) [id number] -- 07/15/2020 11:47 CR Chest 1 Vw [...] on filedocumented in this encounter Care Teams Oversize Load Pilot Escort Relationship Specialty Start Date End Date José Miguel Verde MD [address] [place] [address] PCP - General Adolescent Medicine 03/07/23 documented as of this encounter
--- OUTSIDE RECORDS SUMMARY | 2025-06-05 08:58 | XMS_ITS | Encounter Summary ---
Author Organization [employer] ([place], [place], [place], [place]) Address [address] [place] [address] Care Team Providers Care Precision Aircraft Structure Assembler Name Role Phone José Miguel Verde MD Primary Care Provider + [phone] Encounter Details Date Type Department Care Team (Late st Contact Info) Description 07/15/2020 Transcribed Document [facility] Family Medicine [address] [place] [address] ProviderNitin MD [address], [place] [id number] Social History Tobacco Use Types Packs/Day Years [...] Nitin ProviderMD - 07/15/2020 11:47 AM CDT [place] Suicide Severity Rating Scale (C-SSRS) Entered On: 07/15/2020 12:21 EDT Performed On: 07/15/2020 12:20 EDT by IVORY APPIAH RN [place] Suicide Severity Rating Scale (C-SSRS) CSSRS Past [...] on filedocumented in this encounter Care Teams Precision Aircraft Structure Assembler Relationship Specialty Start Date End Date José Miguel Verde MD [address] [place] [address] PCP - General Adolescent Medicine 03/07/23 documented as of this encounter
--- OUTSIDE RECORDS SUMMARY | 2025-06-05 08:58 | XMS_ITS | Clinical Summary ---
Author Organization [employer] ([place], [place], [place], [place]) Address [address] [place] [address] Care Team Providers Care Highway Patrol Commander Name Role Phone José Miguel Verde MD Primary Care Provider + [phone] Allergies Active Allergy Reactions Criticality Noted Date [...] by mouth in the morning. Active pancrelipase, Xmj-Eetq-Hrfk, (CREON) 36,000-114,000 - 180,000 unit CpDR capsule [...] Date Hamilton rded Speak language other than Peruvian at home Not on file 12/01/2023 Want [...] 01/04/2018, 2016 Insurance MEDICARE [place] [address] [address] [place] [address] SUPP Advance Directives For more information, please contact: [phone] * Full Code (Latest Code Status on File) Date Activated Date Inactivated Comments 03/10/2023 5:00 PM 03/11/2023 12:05 PM * Full Code Date Activated Date Inactivated Comments 03/07/2023 2:51 PM 03/10/2023 5:[address] Patrol Commander Relationship Specialty Start Date End Date José Miguel Verde MD [address] [place] [address] PCP - General Adolescent Medicine 03/07/23
--- OUTSIDE RECORDS SUMMARY | 2025-06-05 08:58 | XMS_ITS | Encounter Summary ---
Author Organization [employer] ([place], [place], [place], [place]) Address [address] [place] [address] Care Team Providers Care Water Quality Analyst Name Role Phone José Miguel Verde MD Primary Care Provider + [phone] Encounter Details Date Type Department Care Team (Late st Contact Info) Description 07/15/2020 Transcribed Document [facility] Family Medicine [address] [place] [address] ProviderNitin MD [address] [place] [address] Social History Tobacco Use Types [...] further action required x1 Electronically signed by Sarah Russell Conversion Director Of Revenue Cycle Management Cerner at 02/26/2023 11:08 PM CDT documented in this encounter Plan of Treatment Not on file documented as of this encounter Visit Diagnoses Not on filedocumented in this encounter Care Teams Water Quality Analyst Relationship Specialty Start Date End Date José Miguel Verde MD [address] [place] [address] PCP - General Adolescent Medicine 03/07/23 documented as of this encounter
--- OUTSIDE RECORDS SUMMARY | 2025-06-05 08:58 | XMS_ITS | Encounter Summary ---
Author Organization [employer] ([place], [place], [place], [place]) Address [address] [place] [address] Care Team Providers Care Outside Production Inspector Name Role Phone José Miguel Verde MD Primary Care Provider + [phone] Encounter Details Date Type Department Care Team (Late st Contact Info) Description 07/15/2020 Transcribed Document [facility] Family Medicine [address] [place] [address] ProviderNitin MD [address] [place] [address] Social History Tobacco Use Types [...] Bueno MD - 07/15/2020 4:34 PM CDT [facility] [place] [address] GINA HECTOR :1945 Visit Time:07/15/2020 Your [...] appointment Where: [address] [place] [address]- Business (1) Follow Up with Follow up with primary care provider When Within 1 to 2 days Comments Take home medications as directed, follow with PCP, return to emergency Department with new or worsening symptoms Follow Up with MELVIN RASCON When Within 2 to 3 days Where: [address] [facility] [address] [place] [address]- Business (1) Allergies ibuprofen (Itching, Itching) [...] range between ( 0.0 and 7.0 ) [place] #: 0.55 K/uL -- Normal range between ( 0.16 and 1.00 ) Eos #: 0.06 x10(3)/uL -- Normal range between ( 0.00 and 0.80 ) [place] %: 9.3 % -- Normal range between [...] safe for you. General instructions ??? Take duyp-cug-bmglhfu and prescription medicines only as told by [...] 10/30/2006 Document Revised: 05/02/2019 Document Reviewed: 05/02/2019 [employer] Patient Education ?? 2020 [employer]. Nonspecific Chest Pain, Adult Chest pain can [...] these instructions at home: Medicines ??? Take fkdx-qen-oolljly and prescription medicines only as told by [...] 08/09/2006 Document Revised: 05/02/2019 Document Reviewed: 05/02/2019 [employer] Patient Education ?? 2020 [employer] Emergency Awareness and Preventative Care STROKE [...] Assistance with quitting is available by contacting 7-815-ZZAV-NOW. This is a free resource providing counseling, [...] was given the opportunity to ask questions. Patient/Bath Tester Name: Patient/Bath Tester Signature: Relationship to Patient: Clinician/Hospital Bath Tester Signature: Please Provide a Telephone Number Where You Can Be Reached: Is it Permissible To Leave a Message? Date: Electronically signed by [facility], [facility] Conversion Clipper Automatic Cerner at 02/26/2023 11:06 PM CDT documented in this encounter Plan of Treatment Not on file documented as of this encounter Visit Diagnoses Not on filedocumented in this encounter Care Teams Outside Production Inspector Relationship Specialty Start Date End Date José Miguel Verde MD [address] [place] [address] PCP - General Adolescent Medicine 03/07/23 documented as of this encounter
--- OUTSIDE RECORDS SUMMARY | 2025-06-05 08:58 | XMS_ITS | Clinical Summary ---
Author Organization [facility] Address [address] [place] [address] Care Team Providers Care Still Photographer Name Role Phone José Miguel Verde MD Primary Care Provider Allergies Active Allergy Reactions Criticality Noted Date [...] Acti ve predniSONE (DELTASONE) 5 MG tablet 04/17//3/2/ as directed daily for 6 days 21 [...] 1 tablet by mouth Daily. Active Pancrelipase, Ijx-Mnod-Uxgn, (Creon) 33155-521500 units capsule delayed-release particles capsule Take 2 [...] Type Department Care Team Description 04/04/2025 Refill [facility] RHEUMATOLOGY [address] [address] Nichole Loya, MAILROOM CLERK from Last 3 Months Family History Medical [...] Description 09/12/2025 1:00 PM EDT Office Visit [facility] RHEUM[facility] [address] [address] Nichole Loya APRN [address] [address] Health Maintenance Due Date Last [...] Payer ( fective 2011-Present) Name:Gina Hector Member ID:[id number] Relation to Subscriber:Self Name:Gina Hcetor Subscriber ID:[id number] Payer ID:[id number] Group ID:Not on file Type:Not on file Address: [facility] [id number] [place] [id number] [facility] Care Teams Still Photographer Relationship Specialty Start Date End Date José Miguel Verde MD [address] [place] [address] PCP - General Adolescent Medicine 02/15/19
--- OUTSIDE RECORDS SUMMARY | 2025-06-05 08:58 | XMS_ITS | Encounter Summary ---
Author Organization [employer] ([place], [place], [place], [place]) Address [address] [place] [address] Care Team Providers Care Real Time Operator Name Role Phone José Miguel Verde MD Primary Care Provider + [phone] Encounter Details Date Type Department Care Team (Late st Contact Info) Description 07/15/2020 Transcribed Document [facility] Family Medicine [address] [place] [address] ProviderNitin MD [address] [id number] Social History Tobacco Use Types Packs/Day Years [...] IVORY APPIAH, RN - 07/15/2020 16:41 EDT documented in this encounter Plan of Treatment Not on file documented as of this encounter Visit Diagnoses Not on filedocumented in this encounter Care Teams Real Time Operator Relationship Specialty Start Date End Date José Miguel Verde MD [address] [place] [address] PCP - General Adolescent Medicine 03/07/23 documented as of this encounter
--- OUTSIDE RECORDS SUMMARY | 2025-06-05 08:58 | XMS_ITS | Encounter Summary ---
Author Organization [employer] ([place], [place], [place], [place]) Address [address] [place] [address] Care Team Providers Care Stogy Roller Name Role Phone José Miguel Verde MD Primary Care Provider + [phone] Encounter Details Date Type Department Care Team (Late st Contact Info) Description 07/15/2020 Transcribed Document [facility] Family Medicine [address] [place] [address] ProviderNitin MD [address], [place] [id number] Social History Tobacco Use Types Packs/Day Years [...] On: 07/15/2020 11:56 EDT by CARMEN PICKETT, CUTLERY GRINDER Triage Across the Room Chief Complaint : pt c/o CP for 2 days, hurting in left arm, sharp 10, took NTG yesterday went away, started today took NTH with xanax and now a 4/10, no NVD, Triage Date/Time : 07/15/2020 11:56 EDT CARMEN PICKETT RN - 07/15/2020 11:56 EDT DCP GENERIC CODE Tracking Acuity : 2 - Emergent Tracking Group : [facility] ED CARMEN PICKETT RN - 07/15/2020 11:56 EDT Mode of Arrival : Ambulatory Transported to ED by : Private vehicle To Room Via : Wheelchair Accompanied By : Unaccompanied ED Vital Signs : Document Height & Weight : Document ED Allergies : Document ED Reason for Visit : Document Tetanus Immunization : Unknown Human Resources Intern Needed : No CARMEN PICKETT RN - [...] PNED ; Probability: 0 ; Diagnosis Code: [id number] ED Height and Weight Height Source : Stated Height Entry Format : [place] Height, Feet : 5 ft(Converted to: 152 cm, 60 Inch) Height, Inches : 2 Inch(Converted to: 0 ft 2 Inch, 5.08 cm) Clinical Height : 157.48 cm Weight Source, ED : Critical estimated dosing weight Weight Entry Format : [place] Weight, Pounds : 222 lb Clinical Dosing Weight : 100.91 kg Body Surface Area (BSA) : 2 m2 Body Mass Index : 40.7 kg/m2 (>HHI) [place] Body Weight (IBW) : 49.73 kg CARMEN [...] on filedocumented in this encounter Care Teams Stogy Roller Relationship Specialty Start Date End Date José Miguel Verde MD [address] [place] [address] PCP - General Adolescent Medicine 03/07/23 documented as of this encounter
--- OUTSIDE RECORDS SUMMARY | 2025-06-05 08:58 | XMS_ITS | Encounter Summary ---
Author Organization [employer] ([place], [place], [place], [place]) Address [address] [place] [address] Care Team Providers Care Adding Machine Mechanic Name Role Phone José Miguel Verde MD Primary Care Provider + [phone] Encounter Details Date Type Department Care Team (Late st Contact Info) Description 07/15/2020 Transcribed Document [facility] Family Medicine [address] [place] [address] ProviderNitin MD [address] [place] [address] Social History Tobacco Use Types [...] Nitin ProviderMD - 07/15/2020 4:16 PM CDT [facility] [place] [address] GINA HECTOR :1945 Visit Time:07/15/2020 Your [...] Within 2 to 3 days Where: [address] Business (1) Allergies ibuprofen (Itching, Itching) [...] range between ( 0.0 and 7.0 ) [place] #: 0.55 K/uL -- Normal range between ( 0.16 and 1.00 ) Eos #: 0.06 x10(3)/uL -- Normal range between ( 0.00 and 0.80 ) [place] %: 9.3 % -- Normal range between [...] safe for you. General instructions ??? Take osow-lcc-dgrbejc and prescription medicines only as told by [...] 10/30/2006 Document Revised: 05/02/2019 Document Reviewed: 05/02/2019 [employer] Patient Education ?? 2020 [employer]. Nonspecific Chest Pain, Adult Chest pain can [...] these instructions at home: Medicines ??? Take wuhc-iau-iyxgsbd and prescription medicines only as told by [...] 08/09/2006 Document Revised: 05/02/2019 Document Reviewed: 05/02/2019 [employer] Patient Education ?? 2020 [employer] Emergency Awareness and Preventative Care STROKE [...] Assistance with quitting is available by contacting 6-427-HZCP-NOW. This is a free resource providing counseling, [...] was given the opportunity to ask questions. Patient/Building Certifier Name: Patient/Building Certifier Signature: Relationship to Patient: Clinician/Hospital Building Certifier Signature: Please Provide a Telephone Number Where You Can Be Reached: Is it Permissible To Leave a Message? Date: Electronically signed by [facility] Conversion Leather Stretcher Jessica at 02/26/2023 11:01 PM CDT documented in this encounter Plan of Treatment Not on file documented as of this encounter Visit Diagnoses Not on filedocumented in this encounter Care Teams Adding Machine Mechanic Relationship Specialty Start Date End Date José Miguel Verde MD [address] [place] [address] PCP - General Adolescent Medicine 03/07/23 documented as of this encounter
[2025-06-05] MEDS: ASPIRIN 325MG TABLET 325 MG PO (09:02)
[2025-06-05] MEDS: ACETAMINOPHEN 500MG TAB 1000 MG PO (09:03)
[2025-06-05] MEDS: NITROGLYCERIN 0.4MG SL TABLET 0.4 MG SL (09:03)
[2025-06-05 09:04] LABS: Hematocrit 38.9 % (37.0-47.0); Hemoglobin 13.3 g/dL (12.2-16.2); Immature Granulocytes % 0.2 %; Mean Corpuscular HGB Conc 34.2 g/dL (31.8-35.4); Mean Corpuscular Hemoglobin 33.3 pg (27.0-31.2); Mean Corpuscular Volume 97.5 fl (81-99); Nucleated Red Blood Cells % 0 %; Platelet Count 125 K/mm3 (142-424); Red Blood Count 3.99 M/mm3 (4.20-5.40); Red Cell Distribution Width-SD 48.2 fL; White Blood Count 4.3 K/mm3 (4.8-10.8)
[2025-06-05 09:08] LABS: INR 1.07 (0.9-1.1); Prothrombin Time 11.8 seconds (10.1-12.5)
[2025-06-05 09:15] LABS: Alanine Aminotransferase 27 U/L (12-78); Albumin Level 4.3 g/dl (3.5-5.0); Albumin/Globulin Ratio 2.2 (1.1-1.8); Alkaline Phosphatase 65 U/L (38-126); Anion Gap 13.6 mEq/L (5-15); Aspartate Amino Transferase 38 U/L (14-36); Bilirubin,Total 1.4 mg/dl (0.2-1.3); Blood Urea Nitrogen 17 mg/dl (7-17); Calcium 9.7 mg/dl (8.4-10.2); Carbon Dioxide 23 mmol/L (22.0-30.0); Chloride 105 mmol/L (98-107); Creatinine Clearance Estimated 60 mL/min (50-200); Creatinine,Serum 1.00 mg/dl (0.52-1.04); Estimated Glomerular Filt Rate 54 ml/min (>60); GFR (African American) 65 ML/MIN (>60); Globulin 2.0 g/dL (1.3-3.2); Glucose 118 mg/dl (74-100); Magnesium 1.8 mg/dl (1.6-2.3); Potassium 3.6 mmoL/L (3.5-5.1); Sodium 138 mmol/L (136-145); Total Protein,Serum 6.3 g/dl (6.3-8.2)
[2025-06-05 09:26] LABS: Troponin I 0.03 ng/ml (0.00-0.034)
[2025-06-05] MEDS: SCOPOLAMINE 1.5MG/72HRS PATCH 1 EACH TD (10:35)
[2025-06-05 12:10] LABS: Troponin I 0.03 ng/ml (0.00-0.034)
--- NOTE | 2025-06-05 12:21 | PC.NURSE ---
patient in room, no concerns at this time.
== END 2025-06-05 12:40 | disposition home or self-care (01) ==
PROVIDERS: Emergency Provider Emergency Medicine; PCP Nurse Practitioner Family
DX: R07.89 Other chest pain (principal); F41.9 Anxiety disorder, unspecified; I10 Essential (primary) hypertension; E78.5 Hyperlipidemia, unspecified; Z86.79 Personal history of other diseases of the circulatory system; Z95.5 Presence of coronary angioplasty implant and graft
CPT/HCPCS: 71045; 80053; 83735; 84484; 85025; 85610; 93005; 99284

== ENCOUNTER 2025-06-06 09:03 | Emergency (ER) | payer MEDICARE, BC, SELFPAY ==
[2025-06-06] VITALS (11 sets, daily range): BP systolic 104–149; BP diastolic 57–86; PULSE 55–67; RESP 15–22; TEMP 37.1–37.2; O2SAT 96–100; BMI 36.3
--- NOTE | 2025-06-06 09:05 | HMH.EDGENADL ---
Discharge Plan Disposition Patient Disposition: Home, Self-Care Condition: Good Prescriptions Prescriptions: No Action Gemtesa 75 mg tablet 75 mg PO DAILY cholecalciferol (vitamin D3) 125 mcg (5,000 unit) capsule 125 mcg PO DAILY Voquezna 20 mg tablet 20 mg PO DAILY Qty: 90 3RF cyanocobalamin (vitamin B-12) 1,000 mcg/mL solution 1,000 mcg IM MONTHLY alprazolam 0.25 MG tablet 0.25 mg PO TIDP PRN (Reason: Anxiety) cevimeline 30 MG capsule 30 mg PO TID hydroxychloroquine 200 MG tablet 200 mg PO DAILY Patient Comments: 1 a day. 2 the next day colchicine 0.6 MG tablet 0.6 mg PO DAILY scopolamine base 1 mg over 3 days patch 3 day 1 patch transdermal Q3D PRN (Reason: nausea and vomiting) Qty: 10 1RF aspirin 81 MG tablet,delayed release (DR/EC) 81 mg PO DAILY atenolol 50 MG tablet 50 mg PO DAILY cyclosporine [Restasis] 1 EACH dropperette 1 drp ophthalmic (eye) DAILY furosemide 20 mg tablet 20 mg PO DAILYP PRN (Reason: Fluid) Creon 36,000-114,000- 180,000 unit capsule,delayed release(DR/EC) 1 cap PO AC Rx Instructions: Take 1 capsule by mouth before meals/snacks max 6XD colestipol 1 gram tablet 1 g PO BID Creon 36,000-114,000- 180,000 unit capsule,delayed release(DR/EC) 1 cap PO DAILYP PRN (Reason: WITH SNACKS UP TO 3 TIMES DAILY.) atorvastatin [Lipitor] 20 mg tablet 20 mg PO HS Qty: 30 1RF nitrofurantoin monohyd/m-cryst [Macrobid] 100 mg capsule 100 mg PO Q12H 5 Days Qty: 10 0RF Rx Instructions: must administer with a meal/food isosorbide mononitrate 30 mg tablet extended release 24 hr 30 mg PO DAILY Qty: 30 1RF clopidogrel 75 mg Tablet 75 mg PO DAILY 30 Days Qty: 30 1RF clopidogrel [Plavix] 75 mg tablet 75 mg PO DAILY Qty: 30 1RF sertraline [Zoloft] 25 mg tablet 25 mg PO DAILY Qty: 30 0RF Referrals Follow up/Referrals: Catherine Saha APRN [Primary Care Provider, Medical] - See instructions Activity Restrictions/Add. Instructions Additional Instructions/Restrictions: Follow-up with cardiology. Call them for an appointment. Please follow up with your primary care provider in 2-3 days. Please return to ED if your symptoms worsen, change in location, change in severity, new symptoms develop or if you become concerned for your health. Clinical Impressions Clinical Impression: Anxiety, Chest pain Print Language Print Language: [place] Discharge ED Provider: Low Zamorano General Adult HPI General Chief complaint: Chest Pain Stated complaint: chest pain Time Seen by Provider: 06/06/25 09:05 History of Present Illness HPI narrative: Patient is a 79-year-old female with a history of coronary disease s/p CABG 20 years ago and PCI on May 15 here. She also has hypertension hyperlipidemia arthritis anxiety. She has been compliant with her aspirin and Plavix. She presents today for chest pain. She reports it is different characteristic than yesterday when she presented. She reports now it is across the entirety of her chest bilaterally and upper chest. Which is new. She woke up with it. More of a pressure than a stabbing sensation. She reports that as she is the morning is progressed, that is gone away but she is still having pain in her bilateral shoulders, not radiating elsewhere. Not radiating to her back. She denies any shortness of breath. She denies any worsening on exertion. She denies any new lower extremity edema. She reports that she is feeling quite anxious this morning and has not yet taken her morning Xanax. I dependently reviewed the EMR and discharge summary from 721 which demonstrates generalized weakness offered physical therapy at home but declined. I also saw the patient yesterday and reviewed my note from yesterday which demonstrates a negative ACS workup, and resolution of patient's symptoms at that time. Related Data Home Medications ?Medication ?Instructions ?Recorded ?Confirmed alprazolam 0.25 mg tablet 0.25 mg PO TIDP PRN Anxiety 01/06/19 06/02/25 cevimeline 30 mg capsule 30 mg PO TID 01/06/19 06/02/25 colchicine 0.6 mg tablet 0.6 mg PO DAILY 01/06/19 06/02/25 hydroxychloroquine 200 mg tablet 200 mg PO DAILY 01/06/19 06/02/25 aspirin 81 mg tablet,delayed 81 mg PO DAILY 01/04/20 06/02/25 release atenolol 50 mg tablet 50 mg PO DAILY 01/04/20 06/02/25 cyclosporine 0.05 % eye drops in a 1 drp ophthalmic (eye) DAILY dry 01/04/20 06/02/25 dropperette (Restasis) eyes cyanocobalamin (vitamin B-12) 1,000 mcg IM MONTHLY 08/21/24 06/02/25 1,000 mcg/mL injection solution cholecalciferol (vitamin D3) 125 125 mcg PO DAILY 12/18/24 06/02/25 mcg (5,000 unit) capsule furosemide 20 mg tablet 20 mg PO DAILYP PRN Fluid 12/18/24 06/02/25 vibegron 75 mg tablet (Gemtesa) 75 mg PO DAILY 12/18/24 06/02/25 rnshvw-crnhqgjr-ojvdzfi 1 cap PO AC 03/26/25 06/02/25 36,000-114,000-180,000 unit capsule,delay rel (Creon) colestipol 1 gram tablet 1 g PO BID 06/02/25 06/02/25 kditfr-wegfzwzy-ufdwkyo 1 cap PO DAILYP PRN WITH SNACKS UP 06/02/25 06/02/25 36,000-114,000-180,000 unit TO 3 TIMES DAILY. capsule,delay rel (Creon) Previous Rx's ?Medication ?Instructions ?Recorded vonoprazan 20 mg tablet (Voquezna) 20 mg PO DAILY #90 tabs 09/23/24 scopolamine base 1 mg over 3 days 1 patch transdermal Q3D PRN nausea 05/15/25 transdermal patch and vomiting #10 ea atorvastatin 20 mg tablet (Lipitor) 20 mg PO HS #30 tabs 06/03/25 clopidogrel 75 mg tablet 75 mg PO DAILY 30 days #30 tabs 06/03/25 clopidogrel 75 mg tablet (Plavix) 75 mg PO DAILY #30 tabs 06/03/25 isosorbide mononitrate 30 mg 30 mg PO DAILY #30 tabs 06/03/25 tablet,extended release 24 hr nitrofurantoin 100 mg PO Q12H 5 days #10 caps 06/03/25 monohydrate/macrocrystals 100 mg capsule (Macrobid) sertraline 25 mg tablet (Zoloft) 25 mg PO DAILY #30 tabs 06/03/25 Allergies Allergy/AdvReac Type Severity Reaction Status Date / Time Penicillins Allergy Intermediate Rash Verified 06/05/25 08:57 ibuprofen (From Motrin) Allergy Mild Rash Verified 06/05/25 08:57 sulfamethoxazole (From Allergy Unknown Verified 06/05/25 08:57 Bactrim) allergy reaction trimethoprim (From Bactrim) Allergy Unknown Verified 06/05/25 08:57 allergy reaction PFSH PFS Disclaimer: The information contained in this section may have been updated after the patient was seen, as this information can be updated by other users. Medical History (Updated 06/06/25 @ 13:56 by Low Zamorano MD) Anxiety Diverticulitis Pancreatitis Hyperlipidemia Hypertension Rheumatoid arthritis Osteoarthritis Hemorrhoids Heart disease Gout GERD (gastroesophageal reflux disease) Colon polyps Colitis CAD (coronary artery disease) History of blood transfusion Surgical History H/O left wrist surgery History of right hip replacement History of cholecystectomy History of back surgery Hx of CABG H/O right wrist surgery Family History Father Cancer Social History Smoking Status: Never smoker alcohol intake: never substance use type: denies use current occupational status: retired Travel in the last 8 weeks?: None caffeine: Yes Have you lived/traveled outside US in past 30 days?: No Contact w/someone who lives/traveled outside US past 30 days?: No Exposure to someone with infectious disease in past 14 days?: No Do you have a fever (greater than 100.4 F or 38 C)?: No Have you tested positive for COVID-19?: No Exposed to someone with COVID-19 in past 14 days?: No Do you have a sore throat?: No Do you have a cough?: No Do you have any weakness?: No Do you have any diarrhea?: No Are you experiencing any unusual bleeding?: No Do you have any muscle aches/pain?: No Do you have any abdominal pain?: No Are you experiencing loss of taste or smell?: No Other Medical History Have you received the Flu Vaccine for this season: No Have you received the Pneumonia Vaccine: No ROS Obtained: Yes All systems reviewed & no additional complaints except as documented Physical Exam General General appearance: alert and in no apparent distress Head Head exam: atraumatic and normocephalic Eye Eye exam: Present PERRL and EOMI ENT ENT exam: Present normal oropharynx Neck Neck exam: Present full ROM and trachea midline Chest Chest inspection: Present symmetric chest wall rise Respiratory Respiratory exam: Present normal lung sounds bilaterally; Absent stridor Cardiovascular Cardiovascular exam: Present regular rate and normal rhythm Abdominal Exam Abdominal exam: Present soft; Absent distention or tenderness Extremities Exam Extremities exam: Present full ROM Neurological Exam Neurological exam: Present alert and oriented X3 Psychiatric Psychiatric exam: Present anxious Skin Skin exam: Present warm and dry Medical Decision Making Medical Records Screening: Per USPSTF and CDC recommendations, given the prevalence of disease in our region, it is our hospital?s policy to screen for HIV and viral Hepatitis for all patients aged 18 and over and those with ongoing risk factors. Earl Inquiry Pt receiving controlled substance: No Vital Signs: 06/06/25 09:06 06/06/25 09:10 06/06/25 10:00 Temperature 98.9 F Temperature Source Oral Pulse Rate 65 62 Pulse Rate [Right] 67 Respiratory Rate 16 19 17 Blood Pressure 125/79 Blood Pressure [Left Arm] 104/86 L Blood Pressure Mean [Left Arm] 92 Blood Pressure Source [Left Arm] Automatic Cuff Blood Pressure Position [Left Arm] Supine 02 Sat by Pulse Oximetry 97 96 97 Oxygen Delivery Method Room Air Room Air Room Air 06/06/25 10:33 06/06/25 11:13 06/06/25 11:30 Temperature Temperature Source Pulse Rate 65 57 L 55 L Pulse Rate [Right] Respiratory Rate 21 22 15 Blood Pressure 129/74 116/57 L 124/59 L Blood Pressure [Left Arm] Blood Pressure Mean [Left Arm] Blood Pressure Source [Left Arm] Blood Pressure Position [Left Arm] 02 Sat by Pulse Oximetry 99 97 98 Oxygen Delivery Method Room Air Room Air 06/06/25 12:00 06/06/25 12:30 06/06/25 13:00 Temperature Temperature Source Pulse Rate 55 L 55 L 57 L Pulse Rate [Right] Respiratory Rate 17 16 20 Blood Pressure 132/65 138/63 149/63 H Blood Pressure [Left Arm] Blood Pressure Mean [Left Arm] Blood Pressure Source [Left Arm] Blood Pressure Position [Left Arm] 02 Sat by Pulse Oximetry 98 99 98 Oxygen Delivery Method Room Air 06/06/25 13:31 Temperature Temperature Source Pulse Rate 58 L Pulse Rate [Right] Respiratory Rate 15 Blood Pressure 136/70 Blood Pressure [Left Arm] Blood Pressure Mean [Left Arm] Blood Pressure Source [Left Arm] Blood Pressure Position [Left Arm] 02 Sat by Pulse Oximetry 100 Oxygen Delivery Method Room Air Lab Data Lab Results 06/06/25 10:05: WBC 4.4 L, RBC 3.90 L, Hgb 13.2, Hct 37.8, MCV 96.9, MCH 33.8 H, MCHC 34.9, RDW 13.4, Plt Count 135 L, MPV 11.0 H, Neut % (Auto) 76.0, Lymph % (Auto) 14.1, [place] % (Auto) 9.3, Eos % (Auto) 0.2, Baso % (Auto) 0.2, Neut # (Auto) 3.4, Lymph # (Auto) 0.6 L, [place] # (Auto) 0.4, Eos # (Auto) 0.0, Baso # (Auto) 0.0, PT 11.9, INR 1.08, Sodium 132 L, Potassium 3.6, Chloride 101, Carbon Dioxide 23, Anion Gap 11.6, BUN 19 H, Creatinine 0.90, Estimated Creat Clear 60, Estimated GFR 61, Est GFR ( Amer) 73, Glucose 113 H, Calcium 9.3, Total Bilirubin 1.6 H, AST 38 H, ALT 28, Alkaline Phosphatase 61, Troponin I 0.03, Total Protein 6.7, Albumin 3.7 D, Globulin 3.0, Albumin/Globulin Ratio 1.2 06/06/25 12:57: Troponin I 0.04 H 06/06/25 10:05 06/06/25 10:05 Orders (Tests/Meds): ED MEDICATIONS Discontinued Medications Generic Name Dose Route Start Last Admin Trade Name Freq PRN Reason Stop Dose Admin Acetaminophen 1,000 mg 06/06/25 09:59 06/06/25 10:16 Acetaminophen 500mg Tab PO 06/06/25 10:00 1,000 mg ONCE ONE Administration Alprazolam 0.25 mg 06/06/25 10:00 06/06/25 10:15 Alprazolam 0.25mg Tablet PO 06/06/25 10:01 0.25 mg ONCE ONE Administration Iopamidol 80 ml 06/06/25 10:09 06/06/25 10:10 Iopamidol-370 (76%);100ml Bottle IV 06/06/25 10:10 80 ml ONCE ONE Administration Sodium Chloride 10 ml 06/06/25 10:09 06/06/25 10:10 Sodium Chloride 0.9% 10ml Syr (Rad Only) IV 06/06/25 10:10 10 ml ONCE ONE Administration Sodium Chloride 50 ml 06/06/25 10:09 06/06/25 10:10 0.9 % Sodium Chloride 50 Ml Vial IV 06/06/25 10:10 50 ml ONCE ONE Administration ORDERS Category Date Time Status CTA Chest [CT angio chest PE protocol] Stat Cat Scan 06/06/25 09:59 Completed CBC w/Auto Diff [Complete Blood Count Auto Diff] Stat Lab 06/06/25 10:05 Completed CMP [Comprehensive Metabolic Panel] Stat Lab 06/06/25 10:05 Completed PT INR [Prothrombin Time INR] Stat Lab 06/06/25 10:05 Completed Trop I [Troponin I] Stat Lab 06/06/25 10:05 Completed Troponin I Q3H Lab 06/06/25 12:57 Completed Troponin I Q3H Lab 06/06/25 15:15 Ordered ECG Data Tracing #1: I reviewed this ECG and interpreted as documented below: Normal sinus rhythm with no acute ischemic ST changes. T wave inversions in the inferior leads as well as throughout the precordium which is similar when compared with prior per my independent review of the EMR and previous EKGs. HEART Score History (anamnesis): Slightly suspicious ECG: Non-specific disturbance Age: >65 years Risk factors: 3 or more risk factors Troponin: </= normal limit HEART Score: 5 Medical Decision Narrative: In summary, this 79-year-old female presents to the emergency department today with chest pain anxiety. On initial evaluation patient is afebrile, hemodynamically stable and in no acute distress. On exam is warm well-perfused full pulses brisk capillary refill. No significant lower extremity edema. Heart is regular rate and rhythm lung sounds clear to station bilaterally. Patient is tremulous and quite anxious. She reports she has not taken her morning Xanax so we will give that to her. She reports that most of the chest pain has improved but she is having some pain in her upper bilateral shoulders. Will administer Tylenol. The shoulders are without warmth erythema or induration. No pain with range of motion of the shoulders.. Differential diagnosis includes but is not limited to anxiety, arthritis, ACS, [place], PE. Based on these concerns, I ordered CBC CMP PT/INR troponin CT PE. Patient will enter observation status at 10:20 AM due to need for repeat troponins and observation on telemetry to rule out ACS frequent reevaluations. On reassessment, patient remains chest pain-free after 4-1/2 hours of observation in the emergency department. I had an interactive discussion with cardiology regarding the slightly uptrending troponin. They recommend outpatient follow-up which I agree with given patient's remarkable stability and clinical history more consistent with anxiety. Strict precautions discussed all questions are amenable to plan and discharge I reviewed prior records including as above. ECG personally interpreted demonstrates as above. Patient received Tylenol, Xanax for treatment. Already received 324mg aspirin with EMS. Labs personally reviewed demonstrate. XR personally interpreted demonstrates. CT imaging personally interpreted demonstrate. I had an interactive discussion with. On reassessment. Patient's prescriptions were reviewed and. Admission as considered and. Of note, social determinants of health include. At this time it was felt that the patient was safe to be discharged home. The patient was in agreement with this plan. The patient was given strict return precautions prior to being discharged from the emergency department. Critical Care Critical Care Time Critical Care Time: No
--- NOTE | 2025-06-06 09:07 | ECG_ITS ---
APPROVED REPORT Exam: Resting ECG HR:65 bpm ECG Measurements Heart Rate 65 AXES [place] 138 P 63 QRSd 117 QRS 63 QT 429 T 231 QTc 440 Conclusion SINUS RHYTHM POSSIBLE RIGHT VENTRICULAR CONDUCTION DELAY [RSR (QR) IN V1/V2] MODERATE T-WAVE ABNORMALITY, CONSIDER ANTEROLATERAL ISCHEMIA [-0.1+ mV T-WAVE IN V3-V6] ABNORMAL ECG UNCONFIRMED REPORT Electronically signed by : Low Zamorano, 06/06/2025 16:46:45
--- OUTSIDE RECORDS SUMMARY | 2025-06-06 09:36 | XMS_ITS | Encounter Summary ---
Author Organization [employer] ([place], [place], [place], [place]) Address [address] [place] [address] Care Team Providers Care Tool Room Lathe Operator Name Role Phone José Miguel Verde MD Primary Care Provider + [phone] Encounter Details Date Type Department Care Team (Late st Contact Info) Description 07/15/[address] [facility] [place] Family Medicine [address] [place] [address] ProviderNitin MD [address] [place] [id number] Social History Tobacco Use Types Packs/Day Years [...] On: 07/15/2020 11:56 EDT by CARMEN PICKETT, HUMAN RESOURCES BENEFITS MANAGER Triage Across the Room Chief Complaint : pt c/o CP for 2 days, hurting in left arm, sharp 10, took NTG yesterday went away, started today took NTH with xanax and now a 4/10, no NVD, Triage Date/Time : 07/15/2020 11:56 EDT CARMEN PICKETT RN - 07/15/2020 11:56 EDT DCP GENERIC CODE Tracking Acuity : 2 - Emergent Tracking Group : [facility] ED CARMEN PICKETT RN - 07/15/2020 11:56 EDT Mode of Arrival : Ambulatory Transported to ED by : Private vehicle To Room Via : Wheelchair Accompanied By : Unaccompanied ED Vital Signs : Document Height & Weight : Document ED Allergies : Document ED Reason for Visit : Document Tetanus Immunization : Unknown Cracking And Fanning Machine Operator Needed : No CARMEN PICKETT RN - [...] PNED ; Probability: 0 ; Diagnosis Code: [id number] ED Height and Weight Height Source : Stated Height Entry Format : [place] Height, Feet : 5 ft(Converted to: 152 cm, 60 Inch) Height, Inches : 2 Inch(Converted to: 0 ft 2 Inch, 5.08 cm) Clinical Height : 157.48 cm Weight Source, ED : Critical estimated dosing weight Weight Entry Format : [place] Weight, Pounds : 222 lb Clinical Dosing Weight : 100.91 kg Body Surface Area (BSA) : 2 m2 Body Mass Index : 40.7 kg/m2 (>HHI) [place] Body Weight (IBW) : 49.73 kg CARMEN [...] on filedocumented in this encounter Care Teams Tool Room Lathe Operator Relationship Specialty Start Date End Date José Miguel Verde MD [address] [place] [id number] PCP - General Adolescent Medicine 03/07/23 documented as of this encounter
--- OUTSIDE RECORDS SUMMARY | 2025-06-06 09:36 | XMS_ITS | Encounter Summary ---
Author Organization [employer] ([place], [place], [place], [place]) Address [address] [place] [address] Care Team Providers Care Cow Rider Name Role Phone José Miguel Verde MD Primary Care Provider + [phone] Encounter Details Date Type Department Care Team (Late st Contact Info) Description 07/15/2020 Transcribed Document [facility] [place] [address] [place] [address] ProviderNitin MD [address] [place] [address] Social History Tobacco Use Types [...] Nitin ProviderMD - 07/15/2020 4:16 PM CDT [facility] [address] GINA HECTOR :1945 Visit Time:07/15/2020 Your [...] Within 2 to 3 days Where: [address] Business (1) Allergies ibuprofen (Itching, Itching) [...] range between ( 0.0 and 7.0 ) Placer #: 0.55 K/uL -- Normal range between ( 0.16 and 1.00 ) Eos #: 0.06 x10(3)/uL -- Normal range between ( 0.00 and 0.80 ) Placer %: 9.3 % -- Normal range between [...] safe for you. General instructions ??? Take hgix-ytc-hssthru and prescription medicines only as told by [...] 10/30/2006 Document Revised: 05/02/2019 Document Reviewed: 05/02/2019 [employer] Patient Education ?? 2020 [employer]. Nonspecific Chest Pain, Adult Chest pain can [...] these instructions at home: Medicines ??? Take kvpf-tev-oyhizlh and prescription medicines only as told by [...] 08/09/2006 Document Revised: 05/02/2019 Document Reviewed: 05/02/2019 [employer] Patient Education ?? 2020 [employer] Emergency Awareness and Preventative Care STROKE [...] Assistance with quitting is available by contacting 0-414-CSFB-NOW. This is a free resource providing counseling, [...] was given the opportunity to ask questions. Patient/Supervisor Scenic Arts Name: Patient/Supervisor [employer]enic [employer] Signature: Relationship to Patient: Clinician/Hospital Supervisor [employer] Signature: Please Provide a Telephone Number Where You Can Be Reached: Is it Permissible To Leave a Message? Date: Electronically signed by [facility] Conversion Police Justice Jessica at 02/26/2023 11:01 PM CDT documented in this encounter Plan of Treatment Not on file documented as of this encounter Visit Diagnoses Not on filedocumented in this encounter Care Teams Cow Rider Relationship Specialty Start Date End Date José Miguel Verde MD [address] [place] [id number] PCP - General Adolescent Medicine 03/07/23 documented as of this encounter
--- OUTSIDE RECORDS SUMMARY | 2025-06-06 09:36 | XMS_ITS | Encounter Summary ---
Author Organization [employer] ([place], [place], [place], [place]) Address [address] [place] [address] Care Team Providers Care Ornament Maker Hand Name Role Phone José Miguel Verde MD Primary Care Provider + [phone] Encounter Details Date Type Department Care Team (Late st Contact Info) Description 01/08/2019 Transcribed Document [facility] [place] [address] [place] [address] ProviderNitin MD [address] [id number] Social History Tobacco Use Types Packs/Day Years [...] - Nitin ProviderMD - 01/08/2019 7:04 PM MEDICAL TECHNOLOGIST BLOOD BANK Patient: GINA HECTOR Age: 73 years Sex: [...] noted. Histroy of triple bypass. Dr. preciado flatwork finisher hand. . History of Present Illness The patient [...] EST Height Source Stated Height Entry Format [place] Height/Length, MALDIVIAN (ft) 5 ft Height/Length MALDIVIAN 2 Inch CLINICALHEIGHT 157.48 cm [place] Body Weight 49.73 kg Weight Source, ED Critical estimated dosing weight Weight Entry Format Wright Weight Czech lb 230 lb CLINICALWEIGHT 104.55 kg Body [...] 18.0 % LOW Lymph # 1.04 x10(3)/uL [place] % 9.2 % [place] # 0.53 K/uL Eos % 0.5 % [...] appointment with her primary care doctor and flatwork finisher hand for discussion of recent ER visits. Patient [...] following educational materials: Gastroesophageal Reflux Disease, Adult, Oakz-ml-Xfro, Food Choices for Gastroesophageal Reflux Disease, Adult, Jrcb-qw-Rbjl, Nonspecific Chest Pain, Lvok-at-Zojt. Follow up with: [facility] Within 2 to 3 days For further assistance with your Primary Care Physician please contact the Patient Resource Center at [phone]. Please follow up with Lester Peace.; MELVIN [...] filedocumented in this encounter Care Teams Ornament Maker Hand Relationship Specialty Start Date End Date José Miguel Verde MD [address] [place] [address] PCP - General Adolescent Medicine 03/07/23 documented as of this encounter
--- OUTSIDE RECORDS SUMMARY | 2025-06-06 09:36 | XMS_ITS | Encounter Summary ---
Author Organization [employer] ([place], [place], [place], [place]) Address [address] [place] [address] Care Team Providers Care Miter Saw Operator Name Role Phone José Miguel Verde MD Primary Care Provider + [phone] Encounter Details Date Type Department Care Team (Late st Contact Info) Description 07/15/2020 Transcribed Document [facility] [place] [address] [place] [address] ProviderNitin MD [address] [place], [place] [id number] Social History Tobacco Use Types Packs/Day Years [...] : None Primary Language : Citizen Of [place] Any Spiritual/Cultural Needs or Requests : No [...] - 07/15/2020 12:20 EDT Electronically signed by [facility] Conversion Sales Correspondence Clerk Cerner at 02/26/2023 11:14 PM CDT documented in this encounter Plan of Treatment Not on file documented as of this encounter Visit Diagnoses Not on filedocumented in this encounter Care Teams Miter Saw Operator Relationship Specialty Start Date End Date José Miguel Verde MD [address] [place] [address] PCP - General Adolescent Medicine 03/07/23 documented as of this encounter
--- OUTSIDE RECORDS SUMMARY | 2025-06-06 09:36 | XMS_ITS | Data Portability ---
Author Organization [facility] [place], [facility] [place] [facility] Address [address] [place] [address] Care Team Providers Care Economic Analysis Director Name Role Phone MIGDALIA KHANNA Primary Care Provider MIGUEL SALAZAR Erp Technical Lead [phone] Assessment Encounter Date Assessment Date Assessment LastModified [...] graft angiography. This was carried out by ia on March 10 and revealed ostial RCA [...] in the ER at [facility] on 01/15/2024 for chest pain. She [...] in the ER at [facility] on 01/15/2024 for chest pain. She [...] in the ER at [facility] on 01/15/2024 for chest pain. She [...] By Organization Details Last Modified Time 02/28/2024 [id number] body mass index: care instructions [email or web address] Not available 02/28/2024 18:49:40 high blood pressure: care instructions Not available 02/28/2024 18:49:40 10/29/2024 [id number] body mass index: care instructions Not available [...] color flow No observ ation record ed. [address], [place], [address], 01/29/2024 09:10:07 01/30/20 24 01/19/2024 US, doppl er echoc ardio gram, w/ color flow No observ ation record ed. [address], [place], [address], 01/31/2024 13:06:02 01/30/20 24 01/19/2024 US, doppl er echoc ardio gram, w/ color flow No observ ation record ed. [address] (Med Record) [address], [place], [address], 01/31/2024 13:05:34 01/30/20 24 01/15/2024 elect rocar diogr am No observ ation record ed. [address], [place], [address], 01/31/2024 13:05:20 02/12/20 24 01/19/2024 US, doppl er echoc ardio gram, w/ color flow No observ ation record ed. [address], [place], [address], 02/12/2024 15:34:23 02/12/20 24 02/06/2024 event monit or No observ ation record ed. [address], [place], [address], 02/13/2024 11:15:22 05/02/20 24 04/24/2024 elect geetha johnson am No observ ation record ed. BARCODE Not Available 2023 08:45:48 Result Notes None recorded. Problems Name Problem SNOMED Code Status Onset Date Resolution Date Notes Provider Name and Address Organization Details Recorded Time Coronary arteriosc lerosis in kake artery 806444400121 7 Active 2014 From Automated Load;Prov ider: Jason Amado;Stat us: Active [facility] 0 15:08:54 Hyperlipi demia 62149874 Active 2014 From Automated Load;Prov ider: Jason Amado;Stat us: Active [facility] 0 15:08:54 Problem Notes None recorded. Procedures Surgical History Date Name Laterality Status Provider Name and Address Organization Details Recorded Time 04/24/20 24 EKG completed MIGUEL SALAZAR MD [address] [place] [address], [phone], [facility] 04/26/2024 11:09:13 10/23/20 23 EKG completed MIGUEL SALAZAR MD [address] [place] [address], [address], [facility] 10/23/2023 14:45:41 10/25/20 22 EKG completed YELENA GARCIA PA-C [address] [place] [address], [address], [facility] 10/25/2022 14:05:38 04/25/20 22 EKG completed YELENA GARCIA PA-C [address] [place], [address], [facility] 04/25/2022 14:01:56 10/20/20 21 EKG completed YELENA GARCIA PA-C [address] [place], [address], [facility] 10/20/2021 14:58:02 10/12/20 10 Cardiac Catheterization completed [facility] 03/29/2017 15:44:16 09/13/20 02 Cardiac Surgery completed [facility] 03/29/2017 15:43:45 Other completed [facility] 03/29/2017 15:43:14 Cholecystectomy completed [facility] 03/29/2017 15:43:26 Other completed [facility] 03/29/2017 15:44:26 Other completed [facility] 03/29/2017 15:44:34 Other completed [facility] 03/29/2017 15:44:42 Other completed [facility] 03/29/2017 15:44:50 Imaging Results None recorded. Procedure Notes None recorded. Medical Equipment None Reported. Allergies Allergen ID Allergen Name Allergen Category Reaction Reaction Severity Criticality Documentation Date Start Date Code Code System Note Provider Name and Address Organization Details Recorded Time 500810 Motrin medicatio n itching Not available Not available 10/06/2016200948 8 RxNorm React ion: ITCHI NG; Comme nt: Creat ed By: Marge rivas Date: 08/31 3:29: 43 PM; Not Available [facility] 6 14:10:00 [id number] Product containin g penicilli n (product) medicatio n rash Not available Not available 10/07/20162009 59911 8001 SNOMED React ion: RASH; Comme nt: Creat ed By: Marge Helms reate d Date: 08/31 3:29: 20 PM; Not Available [facility] 6 03:51:38 Medications Name Sig Start Date [...] Updated DateTime 4 162.56 cm 34 kg/m2 64540.0 1 g 97 % 97 % 64 /min 120/68 mm[Hg] Magda Zhong [facility] 4 15:03:41 Date Recorded Body height Body mass index (BMI) Body weight Heart rate Respiratory rate Oxygen saturation Oxygen saturation in Arterial blood by Pulse oximetry Systolic And Diastolic Provider Name and Address Organization Details Last Updated DateTime 3 162.56 cm 34.1 kg/m2 68538.3 9 g 59 /min 16 /min 96 % 96 % 120/78 mm[Hg] Maddi Llanes [facility] 3 09:29:27 Date Recorded Body height Body mass index (BMI) Body weight Respiratory rate Heart rate Oxygen saturation Oxygen saturation in Arterial blood by Pulse oximetry Systolic And Diastolic Provider Name and Address Organization Details Last Updated DateTime 4 162.56 cm 34.4 kg/m2 41739.5 7 g 16 /min 58 /min 98 % 98 % 124/66 mm[Hg] Lo Ramirez [facility] 4 14:52:40 Date Recorded Body height Body mass index (BMI) Body weight Heart rate Oxygen saturation Oxygen saturation in Arterial blood by Pulse oximetry Systolic And Diastolic Provider Name and Address Organization Details Last Updated DateTime 3 162.56 cm 34.8 kg/m2 24618.4 6 g 58 /min 97 % 97 % 122/65 mm[Hg] Emily Gama [facility] 3 13:51:20 Date Recorded Body height Oxygen saturation Oxygen saturation in Arterial blood by Pulse oximetry Heart rate Systolic And Diastolic Provider Name and Address Organization Details Last Updated DateTime 4 162.56 cm 98 % 98 % 65 /min 140/70 mm[Hg] Magda Zhong [facility] 4 14:03:05 Social History Question Answer Notes LastModified by Organizat ion Details LastModified Time Tobacco Smoking Status Never Smoker Leidy Ryder [facility] 03/29/2017 15:41:57 How Much Tobacco Do You Chew? None Information not available 11/23/2020 Marital Status Informatio n not available 03/29/2017 What Was The Date Of Your Most Recent Tobacco Screening? 10/29/2024 Information not available 10/29/2024 How Many Children Do You Have? 1 Information not available 03/29/2017 What Is Your Relationship Status? [email or web address] Information not available 10/23/2023 How Much Tobacco Do You Smoke? No Information not available 11/23/2020 Has Tobacco Cessation Counseling Been Provided? No Information not available 02/28/2024 Have You Recently Traveled Abroad? No [email or web address] Information not available 10/20/2021 Sex: Female Functional Status Question Answer Note LastModified by Organizat ion Details LastModified Time Do you or have you ever used any other forms of tobacco or nicotine? No Information not available 02/28/2024 Do you or have you ever used smokeless tobacco? Never used smokeless tobacco [email or web address] Information not available 10/24/2019 Are you currently employed? 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 Information not available 03/29/2017 Do you or have you ever used e-cigarettes or vape? Never used electronic cigarettes [email or web address] Information not available 10/24/2019 Mental Status None [...] 50 mcg/0.25mL dose 12/09/2020 completed Emily Malloy [facility] 10/20/2021 14:10:21 COVID-19, mRNA, LNP-S, PF, 100 mcg/0.5mL dose or 50 mcg/0.25mL dose 01/06/2021 completed Emily Malloy [facility] 10/20/2021 14:10:37 COVID-19, mRNA, LNP-S, PF, 100 mcg/0.5mL dose or 50 mcg/0.25mL dose 08/11/2021 completed Emily Malloy [facility] 10/20/2021 14:10:54 Past Encounters Encounter ID Performer Location Encounter Start Date Encounter Closed Date Diagnosis/Indication Diagnosis SNOMED-CT Code Diagnosis ICD10 Code Diagnosis Note [id number] JASON AMADO MD CARDIOLOG Y [address] [place], [place] [address] 04/03/2017 13:10:27 04/03/2017 13:49:50 Coronary arteriosclerosis in kake artery 9727117907 107 I25.10 Medication changes, as well as [...] call for any change in status. Hyperlipidemia 82528858 E78.5 reviewed outside lipid studies. All parameters are in appropriat e range. She is to continue her current regimen. [id number] JASON AMADO MD CARDIOLOG Y [address] [place], [place] [address] 09/25/2017 12:53:34 09/25/2017 14:36:54 Coronary arteriosclerosis in kake artery 6364616575 107 I25.10 Medication changes, as well as [...] call for any change in status. Hyperlipidemia 11676319 E78.5 reviewed outside lipid studies. All parameters are in appropriat e range. She is to continue her current regimen. [id number] JASON AMADO MD CARDIOLOG Y [address] [place] [address] 04/02/2018 09:28:26 04/02/2018 11:01:03 Coronary arteriosclerosis in kake artery 6957572830 107 I25.10 Medication changes, as well as [...] call for any change in status. Hyperlipidemia 15566995 E78.5 reviewed outside lipid studies. All parameters are in appropriat e range. She is to continue her current regimen. [id number] JASON AMADO MD CARDIOLOG Y [address] [place] [address] 10/22/2018 13:48:50 10/22/2018 15:10:00 Coronary arteriosclerosis in kake artery 5970606949 107 I25.10 Medication changes, as well as [...] call for any change in status. Hyperlipidemia 95861913 E78.5 Most recent testing reviewed. All laboratory measuremen ts in appropriat e parameters on current medical therapy. This was reviewed and discussed with the patient and all questions answered. [id number] JASON AMADO MD CARDIOLOG Y [address] [place] [address] 02/07/2019 11:09:23 02/07/2019 13:35:19 Coronary arteriosclerosis in kake artery 8123141358 107 I25.10 Medication changes, as well as [...] call for any change in status. Hyperlipidemia 53582736 E78.5 Most recent testing reviewed. All laboratory measuremen ts in appropriat e parameters on current medical therapy. This was reviewed and discussed with the patient and all questions answered. [id number] JASON AMADO MD CARDIOLOG Y [address] [place] [address] 05/08/2019 13:19:05 05/08/2019 13:58:46 Coronary arteriosclerosis in kake artery 1619917842 107 I25.10 Medication changes, as well as [...] call for any change in status. Hyperlipidemia 74080444 E78.5 Most recent testing reviewed. All laboratory measuremen ts in appropriat e parameters on current medical therapy. This was reviewed and discussed with the patient and all questions answered. Edema of foot 463360642 R60.0 I discussed the importance of salt restrictio n. Per FDA recommenda tions, I advise limit of 2000 -2400 mg daily of sodium. Increase sodium intake is often associated with worsening of hypertensi on and or heart failure.DA SH diet given.. Advised to increase furosemide to 40 mg a day until edema resolves and then resume previous dosage. [id number] FROILAN BAGLEY MD HEM/ONC SB CLOSED [address] [place] [address] 09/09/2019 08:55:56 09/09/2019 09:56:44 [id number] FROILAN BAGLEY MD HEM/ONC SB CLOSED [address] [place] [address] 09/23/2019 14:46:58 09/23/2019 15:53:02 [id number] JASON AMADO MD CARDIOLOG Y [address] [place] [address] 10/24/2019 12:38:41 10/24/2019 13:57:59 Coronary arteriosclerosis in kake artery 7768202479 107 I25.10 Medication changes, as well as [...] call for any change in status. Hyperlipidemia 73889472 E78.5 Most recent testing reviewed. All laboratory measuremen ts in appropriat e parameters on current medical therapy. This was reviewed and discussed with the patient and all questions answered. Edema of foot 864918851 R60.0 I discussed the importance of salt restrictio n. Per FDA recommenda tions, I advise limit of 2000 -2400 mg daily of sodium. Increase sodium intake is often associated with worsening of hypertensi on and or heart failure.DA SH diet given.. Advised to increase furosemide to 40 mg a day until edema resolves and then resume previous dosage. [id number] FROILAN BAGLEY MD HEM/ONC SB CLOSED [address] [place] [address] 04/20/2020 12:49:16 04/20/2020 13:27:21 [id number] JASON AMADO MD CARDIOLOG Y [address] [place] [address] 05/04/2020 13:42:38 05/04/2020 14:45:16 Coronary arteriosclerosis in kake artery 7035423272 107 I25.10 Medication changes, as well as [...] call for any change in status. Hyperlipidemia 13455718 E78.5 Most recent testing reviewed. All laboratory measuremen ts in appropriat e parameters on current medical therapy. This was reviewed and discussed with the patient and all questions answered. Edema of foot 812685369 R60.0 I discussed the importance of salt restrictio n. Per FDA recommenda tions, I advise limit of 2000 -2400 mg daily of sodium. Increase sodium intake is often associated with worsening of hypertensi on and or heart failure.DA SH diet given.. Advised to increase furosemide to 40 mg a day until edema resolves and then resume previous dosage. [id number] JASON AMADO MD CARDIOLOG Y [address] [place] [address] 11/23/2020 14:04:41 11/23/2020 15:54:54 Coronary arteriosclerosis in kake artery 8021219712 107 I25.10 Medication changes, as well as [...] call for any change in status. Hyperlipidemia 25015721 E78.5 Most recent testing reviewed. All laboratory measuremen ts in appropriat e parameters on current medical therapy. This was reviewed and discussed with the patient and all questions answered. Edema of foot 906620252 R60.0 I discussed the importance of salt restrictio n. Per FDA recommenda tions, I advise limit of 2000 -2400 mg daily of sodium. Increase sodium intake is often associated with worsening of hypertensi on and or heart failure.DA SH diet given.. Advised to increase furosemide to 40 mg a day until edema resolves and then resume previous dosage. COVID-19 137225472 U07.1 I had extensive discussion with patient regarding the importance of vaccinatio n and reviewed findings of COVID 19 infection and answered all questions. [id number] JASON AMADO MD CARDIOLOG Y [address] [place] [address] 04/22/2021 10:16:00 04/22/2021 10:42:04 Coronary arteriosclerosis in kake artery 1541703593 107 I25.10 Medication changes, as well as [...] No testing needed at this time Hyperlipidemia 61307136 E78.5 Most recent testing reviewed. All laboratory measuremen ts in appropriat e parameters on current medical therapy. This was reviewed and discussed with the patient and all questions answered. Edema of foot 341509308 R60.0 I discussed the importance of salt restrictio n. Per FDA recommenda tions, I advise limit of 2000 -2400 mg daily of sodium. Increase sodium intake is often associated with worsening of hypertensi on and or heart failure.DA SH diet given.. Advised to increase furosemide to 40 mg a day until edema resolves and then resume previous dosage. COVID-19 707745836 U07.1 I had extensive discussion with patient regarding the importance of vaccinatio n and reviewed findings of COVID 19 infection and answered all questions. [id number] YELENA GARCIA PA-C CARDIOLOG Y [address] [place] [address] 10/20/2021 13:30:08 10/20/2021 15:19:47 Coronary arteriosclerosis 92080468 I25.10 Medication changes, as well as new [...] call for any change in status Dyslipidemia 495319918 E 78.5 Lipid goals discussed with patient. (Total cholestero l less than 170, LDL less than 70. ) Continue heart healthy diet.bertin nue current dose of Lipitor. [id number] YELENA GARCIA PA-C CARDIOLOG Y [address] ,[address] [place], [place] [address] 04/25/2022 13:10:58 04/25/2022 14:17:13 Obese 143973346 E66.9 Coronary arteriosclerosis 46965751 I25.10 Medication changes, as well as new [...] call for any change in status Dyslipidemia 991993275 E 78.5 Lipid goals discussed with patient. (Total cholestero l less than 170, LDL less than 70. ) Continue heart healthy diet.bertin nue current dose of Lipitor. [id number] YELENA GARCIA PA-C CARDIOLOG Y [address] [place], [place] [address] 10/25/2022 13:07:16 10/25/2022 14:19:06 Obese 284085282 E66.9 Coronary arteriosclerosis 05580706 I25.10 The patient is doing well on current management . No new active problems identified . Chronic problems are all stable. Patient is to continue current regimen without change. All questions answered and regimen reviewed. Patient is to call for any change in status Dyslipidemia 269364035 E 78.5 Continue current dose of Lipitor. Obtain fasting lipid profile with PCP [id number] MIGUEL SALAZAR MD CARDIOLOG Y [address] [place] [address] 04/19/2023 08:57:28 04/19/2023 12:59:26 Obesity 950984697 E66.9 patient's BMI today was = 34.1; recommend weight loss for beneficial effects on health. Coronary atherosclerosis 488053211 I25.10 patient with history of CAD, history of CABG-see HPI for detail; no new symptoms reported; exam is relatively unchanged from previous visit; continue with current medication s -enteric-c oated aspirin 81 mg p.o. daily, atenolol 50 mg 1 p.o. nightly, colestipol 1 g tablet p.o. twice daily Anxiety 79926181 F41.9 She reports much increased anxiety/st ress in her life recently due to the deaths of several friends. Hyperlipidemia 33901808 E78.5 continue with current medication s -colestipo l 1 g tablet p.o. twice daily, low cholestero l diet, and recommend fasting lipids at least yearly. Goal lipid profile: TC<=200, TG<=150, HDL>=40, LDL<=70. [id number] MIGUEL SALAZAR MD CARDIOLOG Y SB [address] [place] [address] 10/23/2023 13:19:59 10/23/2023 15:24:43 Coronary atherosclerosis 893134469 I25.10 patient with history of CAD, history [...] recommenda tions at this time Essential hypertension 83256537 I10 BP today was = 122/65 mmHg; continue with current med. -Atenolol 50 mg p.o. nightly patient is recommende d to check BPs at home periodical ly & bring BP log to next visit. A low sodium (< 2000 mg/day) diet is also recommende d. [id number] MIGUEL SALAZAR MD CARDIOLOG Y SB [address] [place] [address] 02/28/2024 14:13:45 02/28/2024 15:43:14 Essential hypertension 44700561 I10 BP today was = 120/68 mmHg; continue with current med. - Atenolol 50 mg p.o. nightly patient is recommende d to check BPs at home periodical ly & bring BP log to next visit. A low sodium (< 2000 mg/day) diet is also recommende d. Obesity 971173029 E66.9 patient's BMI today was = 34.0; recommend weight loss for beneficial effects on health. Coronary atherosclerosis 019490190 I25.10 patient with history of CAD, history [...] new recommenda tions at this time Palpitations 30736685 R0 0.2 The etiology of the patient's [...] the goal of reducing palpitatio n burden. [id number] MIGUEL SALAZAR MD CARDIOLOG Y [address] [place] [address] 04/24/2024 13:47:52 05/02/2024 11:17:54 Coronary atherosclerosis 689984294 I25.10 patient with history of CAD, history [...] recommenda tions at this time Essential hypertension 87573853 I10 BP today was = 124/66 mmHg; continue with current med. - Atenolol 50 mg p.o. nightly patient is recommende d to check BPs at home periodical ly & bring BP log to next visit. A low sodium (< 2000 mg/day) diet is also recommende d. Palpitations 92711881 R0 0.2 The etiology of the patient's [...] goal of reducing palpitatio n burden. Obesity 836711032 E66.9 patient's BMI today was = 34.4; recommend weight loss for beneficial effects on health. [id number] MIGUEL SALAZAR MD CARDIOLOG Y [address] [place] [address] 10/29/2024 12:55:01 10/29/2024 14:32:18 Coronary atherosclerosis 305078084 I25.10 patient with history of CAD, history [...] recommenda tions at this time Essential hypertension 19948136 I10 BP today was = 140/70 mmHg, HR=65 bpm; continue with current med. - Atenolol 50 mg p.o. nightly patient is recommende d to check BPs at home periodical ly & bring BP log to next visit. A low sodium (< 2000 mg/day) diet is also recommende d. Palpitations 35304099 R0 0.2 The etiology of the patient's [...] goal of reducing palpitatio n burden. Obesity 960521314 E66.9 patient's BMI today was = 34.4; recommend weight loss for beneficial effects on health. Gastroesop hageal reflux disease 651403092 K21.9 Patient reports that her chest discomfort [...] OF [place] (MEDICARE SUPP[place]MENT[place] [id number] Gina Haas [id number] Gina Haas 05/18/2025 1 [place] Gina Hector [id number] Gina Haas 10/07/2020 2 [id number] Ginarudi Hector [id number] Gina Hector Notes Date Note Type [...] graft angiography. This was carried out by ia on March 10 and revealed ostial RCA [...] is reported as stable. MIGUEL SALAZAR MD [address] [place] [address], [phone], [facility] 04/19/2023 12:47:20 10/23/2023 text/html ROS as [...] a scheduled follow-up visit. MIGUEL SALAZAR MD [address] [place] [address], [phone], [facility] 10/23/2023 14:47:35 02/28/2024 text/html ROS as [...] in the ER at [facility] on 01/15/2024 for chest pain. She was ruled out for ACS, and sent home. Since then, she reports occasional SOA/THOMPSON and chest discomfort as well as palpitations. She went to the ER twice more last month, and wonders if her recent symptoms were related to anxiety. Patient returns to the clinic today for a scheduled follow-up visit. MIGUEL SALAZAR MD [address] [place] [address], [phone], [facility] 02/28/2024 18:50:28 04/24/2024 text/html ROS as [...] in the ER at [facility] on 01/15/2024 for chest pain. She [...] a scheduled follow-up visit. MIGUEL SALAZAR MD [address] [place] [address], [phone], [facility] 04/26/2024 11:11:23 10/29/2024 text/html ROS as [...] in the ER at [facility] on 01/15/2024 for chest pain. She [...] a scheduled follow-up visit. MIGUEL SALAZAR MD [address] [place] [address], [phone], [place] [facility] 10/29/2024 19:38:08 OBGyn Episode No OBEpisode recorded.
--- OUTSIDE RECORDS SUMMARY | 2025-06-06 09:36 | XMS_ITS | Encounter Summary ---
Author Organization [employer] ([place], [place], [place], [place]) Address [address] [place] [address] Care Team Providers Care Clinical Courier Name Role Phone José Miguel Verde MD Primary Care Provider + [phone] Encounter Details Date Type Department Care Team (Late st Contact Info) Description 01/08/2019 Transcribed Document [facility] [place] Family Medicine [address] [place] [address] ProviderNitin MD [address] [place], [place] [id number] Social History Tobacco Use Types Packs/Day Years [...] - Nitin ProviderMD - 01/08/2019 6:41 PM APPEALS COORDINATOR ED Triage Entered On: 01/08/2019 18:57 EST Performed On: 01/08/2019 18:47 EST by Catherine Pugh, TOP LIFT SCOURER Triage Across the Room Triage Date/Time : 01/08/2019 18:47 EST Chief Complaint : Pt presents to the ER with chest pain that started Monday. Pain was left sided that radiates across chest. Burning in nature. Slight nausea noted. Histroy of triple bypass. 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 Catherine Pugh, RN - 01/08/2019 18:47 EST DCP GENERIC CODE Tracking Acuity : 3 - Urgent Tracking Group : [facility] ED Catherine Pugh RN - [...] PNED ; Probability: 0 ; Diagnosis Code: [id number] ED Height and Weight Height Source : Stated Height Entry Format : [place] Height, Feet : 5 ft(Converted to: 152 cm, 60 Inch) Height, Inches : 2 Inch(Converted to: 0 ft 2 Inch, 5.08 cm) Clinical Height : 157.48 cm Weight Source, ED : Critical estimated dosing weight Weight Entry Format : [place] Weight, Pounds : 230 lb Clinical Dosing Weight : 104.55 kg Body Surface Area (BSA) : 2.03 m2 Body Mass Index : 42.2 kg/m2 (>HHI) [place] Body Weight (IBW) : 49.73 kg Catherine Pugh RN - 01/08/2019 18:47 EST Electronically signed by [facility] Conversion Senior Accounting Manager Cerner at 02/26/2023 11:09 PM CDT documented in this encounter Plan of Treatment Not on file documented as of this encounter Visit Diagnoses Not on filedocumented in this encounter Care Teams Clinical Courier Relationship Specialty Start Date End Date José Miguel Verde MD [address] [place] [address] PCP - General Adolescent Medicine 03/07/23 documented as of this encounter
--- OUTSIDE RECORDS SUMMARY | 2025-06-06 09:36 | XMS_ITS | Encounter Summary ---
Author Organization [facility] ([place], [place], [place], [place]) Address [address] [place] [address] Care Team Providers Care Electronic Plotting System Operator Name Role Phone José Miguel Verde MD Primary Care Provider + [phone] Encounter Details Date Type Department Care Team (Late st Contact Info) Description 07/15/2020 Transcribed Document [facility] [place] Family Medicine [address] [place] [address] ProviderNitin MD [address] [place] [address] Social History Tobacco Use Types [...] 07/15/2020 4:17 PM CDT Electronically signed by [facility] Conversion Product Director Jessica at 02/26/2023 10:51 PM CDT documented in this encounter Plan of Treatment Not on file documented as of this encounter Visit Diagnoses Not on filedocumented in this encounter Care Teams Electronic Plotting System Operator Relationship Specialty Start Date End Date José Miguel Verde MD [address] [place] [address] PCP - General Adolescent Medicine 03/07/23 documented as of this encounter
--- OUTSIDE RECORDS SUMMARY | 2025-06-06 09:36 | XMS_ITS | Referral Summary ---
Author Organization [employer] ([place], [place], [place], [place]) Address [address] [place] [address] Care Team Providers Care Sas Clinical Programmer Name Role Phone José Miguel Verde MD Primary Care Provider + [phone] Allergies Active Allergy Reactions Criticality Noted Date [...] by mouth in the morning. Active pancrelipase, Dxu-Owdj-Hxgn, (CREON) 36,000-114,000 - 180,000 unit CpDR capsule [...] Advance Directives For more information, please contact: [phone] * Full Code (Latest Code Status on File) Date Activated Date Inactivated Comments 03/10/2023 5:00 PM 03/11/2023 12:05 PM * Full Code Date Activated Date Inactivated Comments 03/07/2023 2:51 PM 03/10/2023 5:00 PM Care Teams Sas Clinical Programmer Relationship Specialty Start Date End Date José Miguel Verde MD [address] [place] [address] PCP - General Adolescent Medicine 03/07/23
--- OUTSIDE RECORDS SUMMARY | 2025-06-06 09:36 | XMS_ITS | Encounter Summary ---
Author Organization [employer] ([place], [place], [place], [place]) Address [address] [place] [address] Care Team Providers Care Highway Painter Helper Name Role Phone José Miguel Verde MD Primary Care Provider + [phone] Encounter Details Date Type Department Care Team (Late st Contact Info) Description 01/08/[address] [facility] [place] Family Medicine [address] [place] [address] ProviderNitin MD [address] [place], [place] [id number] Social History Tobacco Use Types Packs/Day Years [...] - Nitin ProviderMD - 01/08/2019 6:41 PM LICENSED PSYCHOLOGIST MANAGER ED Assessment Entered On: 01/08/2019 19:12 EST Performed On: 01/08/2019 19:11 EST by Roc Saenz RN ED Quick Look Assessment Level of Consciousness : Alert, Awake Affect/Behavior : Appropriate, Calm Orientation : Oriented x 4 Roc Saenz RN - 01/08/2019 19:11 EST ED General-Functional Assess Information Obtained From : Patient Communication Barrier : None Primary Language : Welsh Any Spiritual/Cultural Needs or Requests : No [...] 01/08/2019 19:11 EST Electronically signed by Drew [facility] Conversion Department Operations Manager Cerner at 02/26/2023 11:00 PM CDT documented in this encounter Plan of Treatment Not on file documented as of this encounter Visit Diagnoses Not on filedocumented in this encounter Care Teams Highway Painter Helper Relationship Specialty Start Date End Date José Miguel Verde MD [address] [place] [address] PCP - General Adolescent Medicine 03/07/23 documented as of this encounter
--- OUTSIDE RECORDS SUMMARY | 2025-06-06 09:36 | XMS_ITS | Encounter Summary ---
Author Organization [employer] ([place], [place], [place], [place]) Address [address] [place] [address] Care Team Providers Care College Football Coach Name Role Phone José Miguel Verde MD Primary Care Provider + [phone] Encounter Details Date Type Department Care Team (Late st Contact Info) Description 01/08/2019 Transcribed Document [facility] [place] Medicine [address] [place] [address] ProviderNitin MD [address], [place] [id number] Social History Tobacco Use Types Packs/Day Years [...] - Nitin ProviderMD - 01/08/2019 11:23 PM FURNITURE DECALS INSPECTOR ED Discharge Entered On: 01/08/2019 23:23 EST [...] 01/08/2019 23:23 EST Electronically signed by Drew, [facility] Conversion Cardiothoracic Anesthesia Technician Cerner at 02/26/2023 11:09 PM CDT documented in this encounter Plan of Treatment Not on file documented as of this encounter Visit Diagnoses Not on filedocumented in this encounter Care Teams College Football Coach Relationship Specialty Start Date End Date José Miguel Verde MD [address] [place] [address] PCP - General Adolescent Medicine 03/07/23 documented as of this encounter
--- OUTSIDE RECORDS SUMMARY | 2025-06-06 09:36 | XMS_ITS | Encounter Summary ---
Author Organization [facility] Address [address] [place] [address] Care Team Providers Care Personnel Recruiter Name Role Phone José Miguel Verde MD Primary Care Provider [phone] Reason for Visit * Reason Comments Med Refill Encounter Details Date Type Department Care Team (Late st Contact Info) Description 04/04/2025 Refill [facility] RHEUMATOLOGY [address] [address] Nichole Loya, ELECTRIC WELL LOGGING OPERATOR [address] [id number] Social History Tobacco Use Types Packs/Day Years [...] Description 09/12/2025 1:00 PM EDT Office Visit [facility] RHEUMATOLOGY [address] [address] Nichole Loya, ELECTRIC WELL LOGGING OPERATOR 330 [facility] [address] [place] [address] documented as of this encounter Visit Diagnoses Not on filedocumented in this encounter Care Teams Personnel Recruiter Relationship Specialty Start Date End Date José Miguel Verde MD [address] [facility] [address] [place] [address] PCP - General Adolescent Medicine 02/15/19 documented as of this encounter
--- OUTSIDE RECORDS SUMMARY | 2025-06-06 09:36 | XMS_ITS | Encounter Summary ---
Author Organization [employer] ([place], [place], [place], [place]) Address [address] [place] [address] Care Team Providers Care Baffle Mounter Name Role Phone José Miguel Verde MD Primary Care Provider + [phone] Encounter Details Date Type Department Care Team (Late st Contact Info) Description 07/15/2020 Transcribed Document [facility] [place] [address] [place] [address] ProviderNitin MD [address] [place] [address] Social History Tobacco Use Types [...] Source Stated Height Entry Format [place] Height/Length, WOLOF (ft) 5 ft Height/Length WOLOF 2 Inch CLINICALHEIGHT 157.48 cm [place] Body Weight 49.73 kg Weight Source, ED Critical estimated dosing weight Weight Entry Format [place] Weight French lb 222 lb CLINICALWEIGHT 100.91 kg Body [...] Triage: ED C-SSRS: ED Clinical Reconciliation: ED nurse private duty: EKG: Extra Blue Tube: Extra Gold Tube: Troponin I Ultra: Troponin I Ultra: . grinding machine operator: Initial EKG shows normal sinus rhythm [...] % LOW Lymph # 0.97 x10(3)/uL LOW [place] % 9.3 % HI [place] # 0.55 K/uL Eos % 1.0 % Eos # 0.06 x10(3)/uL Baso % 0.5 % Baso # 0.03 x10(3)/uL Slide Review No IG# 0.02 x10(3)/uL IG% 0.30 % . Radiology results: Radiology Results (Last 48 hours) [id number] -- 07/15/2020 11:47 CR Chest 1 Vw [...] on filedocumented in this encounter Care Teams Baffle Mounter Relationship Specialty Start Date End Date José Miguel Verde MD [address] [place] [address] PCP - General Adolescent Medicine 03/07/23 documented as of this encounter
--- OUTSIDE RECORDS SUMMARY | 2025-06-06 09:36 | XMS_ITS | Encounter Summary ---
Author Organization [employer] ([place], [place], [place], [place]) Address [address] [place] [address] Care Team Providers Care Cpc Name Role Phone José Miguel Verde MD Primary Care Provider + [phone] Encounter Details Date Type Department Care Team (Late st Contact Info) Description 07/15/2020 Transcribed Document [facility] [place] Medicine [address] [place] [address] ProviderNitin MD [address] [place] [address] Social History Tobacco Use [...] on filedocumented in this encounter Care Teams Cpc Relationship Specialty Start Date End Date José Miguel Verde MD [address] [place] [address] PCP - General Adolescent Medicine 03/07/23 documented as of this encounter
--- OUTSIDE RECORDS SUMMARY | 2025-06-06 09:36 | XMS_ITS | Clinical Summary ---
Author Organization [facility] Address [address] [place] [address] Care Team Providers Care Slip Caster Name Role Phone José Miguel Verde MD [...] 1 tablet by mouth Daily. Active Pancrelipase, Lwc-Tcjr-Odjq, (Creon) 74983-681336 units capsule delayed-release particles capsule Take 2 [...] Care Team Description 04/04/2025 Refill [facility] RHEUMATOLOGY [address] [address] Nichole Loya, ASSOCIATE SOFTWARE APPLICATION ENGINEER from Last 3 Months Family History Medical [...] Description 09/12/2025 1:00 PM EDT Office Visit [facility] RHEUMATOLOGY [address] [address] Nichole Loya APRN [address] [address] Health Maintenance Due Date Last [...] Payer ( fective 2011-Present) Name:Gina Hector Member ID:[id number] Relation to Subscriber:Self Name:Gina Hector Subscriber ID:[id number] Payer ID:[id number] Group ID:Not on file Type:Not on file Address: [facility] [id number] [place] [id number] [facility] [place] Care Teams Slip Caster Relationship Specialty Start Date End Date José Miguel Verde MD [address] [place] [address] PCP - General Adolescent Medicine 02/15/19
--- OUTSIDE RECORDS SUMMARY | 2025-06-06 09:36 | XMS_ITS | Encounter Summary ---
Author Organization [employer] ([place], [place], [place], [place]) Address [address] [place] [address] Care Team Providers Care Stock Dealer Name Role Phone José Miguel Verde MD Primary Care Provider + [phone] Encounter Details Date Type Department Care Team (Late st Contact Info) Description 01/08/2019 Transcribed Document [facility] [place] [address] [place] [address] ProviderNitin MD [address], [place] [id number] Social History Tobacco Use Types Packs/Day Years [...] Nitin ProviderMD - 01/08/2019 11:24 PM CREDIT SPECIALIST [address] [place] [address] PERSON INFORMATION Name GINA HECTOR Age 73 Years 1945 Sex Female Language Angolan PCP MELVIN RASCON MD-INT Marital Status Med Service Emergency Medicine Acct# Arrival 01/08/2019 18:41:00 Visit Reason Chest pain; CHEST PAIN/LEFT ARM PAIN Acuity 3 - Urgent LOS 000 04:43 Depart Date: 01/08/19 11:24 PM Address: [address] [facility] [address] [facility] [address] Comment: PROVIDER INFORMATION Provider Role Assigned Unassigned BEAR [place]ING ARNP ED Physician 01/08/2019 18:50:05 Roc Saenz, MOLDING SANDER Nurse 01/08/2019 18:59:17 KEYUR BROWN MD ED [...] PATIENT EDUCATION INFORMATION Instructions: Nonspecific Chest Pain, Julp-lm-Ylar; Food Choices for Gastroesophageal Reflux Disease, Adult, Lrwh-dc-Gwky; Gastroesophageal Reflux Disease, Adult, Ynrw-lc-Dksa Follow up: With: Address: When: Return to Emergency Department Within As needed Comments: Follow-up as instructed Return if condition worsens With: Address: When: [facility] Within 2 to 3 days Comments: For further assistance with your Primary Care Physician please contact the Patient Resource Center at [phone]. Please follow up with Lester Peace. With: Address: When: MELVIN RASCON [address] [facility], [address] [place] [phone] Business (1) Within 2 to 3 days Comment: documented in this encounter Plan of Treatment Not on file documented as of this encounter Visit Diagnoses Not on filedocumented in this encounter Care Teams Stock Dealer Relationship Specialty Start Date End Date José Miguel Verde MD [address] [place] [address] PCP - General Adolescent Medicine 03/07/23 documented as of this encounter
--- OUTSIDE RECORDS SUMMARY | 2025-06-06 09:36 | XMS_ITS | Encounter Summary ---
Author Organization [employer] ([place], [place], [place], [place]) Address [address] [place] [address] Care Team Providers Care Hygiene Coordinator Name Role Phone José Miguel Verde MD Primary Care Provider + [phone] Encounter Details Date Type Department Care Team (Late st Contact Info) Description 07/15/2020 Transcribed Document [facility] [place] [address] [place] [address] ProviderNitin MD [address] [place] [address] Social History Tobacco Use [...] Bueno MD - 07/15/2020 4:[address] [place] [address] GINA HECTOR :1945 Visit Time:07/15/2020 Your [...] appointment Where: [address] [place] [address]- Business (1) Follow Up with Follow up with primary care provider When Within 1 to 2 days Comments Take home medications as directed, follow with PCP, return to emergency Department with new or worsening symptoms Follow Up with MELVIN RASCON When Within 2 to 3 days Where: [address] [facility] [address] [place] [address]- Business (1) Allergies ibuprofen (Itching, Itching) [...] range between ( 0.0 and 7.0 ) S[place]y #: 0.55 K/uL -- Normal range between ( 0.16 and 1.00 ) Eos #: 0.06 x10(3)/uL -- Normal range between ( 0.00 and 0.80 ) [place] %: 9.3 % -- Normal range between [...] safe for you. General instructions ??? Take ohov-wlk-ahyxwlw and prescription medicines only as told by [...] 10/30/2006 Document Revised: 05/02/2019 Document Reviewed: 05/02/2019 [employer] Patient Education ?? 2020 [employer]. Nonspecific Chest Pain, Adult Chest pain can [...] these instructions at home: Medicines ??? Take uutk-uoh-fqfemum and prescription medicines only as told by [...] 08/09/2006 Document Revised: 05/02/2019 Document Reviewed: 05/02/2019 [employer] Patient Education ?? 2020 [employer] Emergency Awareness and Preventative Care STROKE [...] Assistance with quitting is available by contacting 1-409-QVDN-NOW. This is a free resource providing counseling, [...] was given the opportunity to ask questions. Patient/Medical Referral Coordinator Name: Patient/Medical Referral Coordinator Signature: Relationship to Patient: Clinician/Hospital Medical Referral Coordinator Signature: Please Provide a Telephone Number Where You Can Be Reached: Is it Permissible To Leave a Message? Date: Electronically signed by [facility] Conversion Dermatology Nurse Cerner at 02/26/2023 11:06 PM CDT documented in this encounter Plan of Treatment Not on file documented as of this encounter Visit Diagnoses Not on filedocumented in this encounter Care Teams Hygiene Coordinator Relationship Specialty Start Date End Date José Miguel Verde MD [address] [place] [address] PCP - General Adolescent Medicine 03/07/23 documented as of this encounter
--- OUTSIDE RECORDS SUMMARY | 2025-06-06 09:36 | XMS_ITS | Encounter Summary ---
Author Organization [employer] ([place], [place], [place], [place]) Address [address] [place] [address] Care Team Providers Care Umbrella Tipper Machine Name Role Phone José Miguel Verde MD Primary Care Provider + [phone] Encounter Details Date Type Department Care Team (Late st Contact Info) Description 01/08/2019 Transcribed Document [facility] [place] [address] [place] [address] ProviderNitin MD [address] [place] [address] Social History Tobacco Use Types [...] - Nitin ProviderMD - 01/08/2019 11:21 PM CHANDELIER MAKER Electronically signed by [facility] Conversion Paper Handler Jessica at 02/26/2023 11:12 PM CDT documented in this encounter Plan of Treatment Not on file documented as of this encounter Visit Diagnoses Not on filedocumented in this encounter Care Teams Umbrella Tipper Machine Relationship Specialty Start Date End Date José Miguel Verde MD [address] [place] [address] PCP - General Adolescent Medicine 03/07/23 documented as of this encounter
--- OUTSIDE RECORDS SUMMARY | 2025-06-06 09:36 | XMS_ITS | Encounter Summary ---
Author Organization [employer] ([place], [place], [place], [place]) Address [address] [place] [address] Care Team Providers Care Dolphin Trainer Name Role Phone José Miguel Verde MD Primary Care Provider + [phone] Encounter Details Date Type Department Care Team (Late st Contact Info) Description 07/15/2020 Transcribed Document [facility] [place] Family Medicine [address] [place] [address] ProviderNitin MD [address] [place], [place] [id number] Social History Tobacco Use Types Packs/Day Years [...] Nitin ProviderMD - 07/15/2020 11:47 AM CDT [place] Suicide Severity Rating Scale (C-SSRS) Entered On: 07/15/2020 12:21 EDT Performed On: 07/15/2020 12:20 EDT by IVORY APPIAH RN [place] Suicide Severity Rating Scale (C-SSRS) CSSRS Past [...] on filedocumented in this encounter Care Teams Dolphin Trainer Relationship Specialty Start Date End Date José Miguel Verde MD [address] [place] [address] PCP - General Adolescent Medicine 03/07/23 documented as of this encounter
--- OUTSIDE RECORDS SUMMARY | 2025-06-06 09:36 | XMS_ITS | Clinical Summary ---
Author Organization [employer] ([place], [place], [place], [place]) Address [address] [place] [address] Care Team Providers Care Manager Float Name Role Phone José Miguel Verde MD Primary Care Provider + [phone] Allergies Active Allergy Reactions Criticality Noted Date [...] by mouth in the morning. Active pancrelipase, Bez-Pvqn-Vooo, (CREON) 36,000-114,000 - 180,000 unit CpDR capsule [...] Date Hamilton rded Speak language other than American at home Not on file 12/01/2023 Want [...] 01/04/2018, 2016 Insurance [place]ICARE [place] [address] SUPP Advance Directives For more information, please contact: [phone] * Full Code (Latest Code Status on File) Date Activated Date Inactivated Comments 03/10/2023 5:00 PM 03/11/2023 12:05 PM * Full Code Date Activated Date Inactivated Comments 03/07/2023 2:51 PM 03/10/2023 5:00 PM Care Teams Manager Float Relationship Specialty Start Date End Date José Miguel Verde MD [address] [place] [address] PCP - General Adolescent Medicine 03/07/23
--- OUTSIDE RECORDS SUMMARY | 2025-06-06 09:36 | XMS_ITS | Encounter Summary ---
Author Organization [employer] ([place], [place], [place], [place]) Address [address] [place] [address] Care Team Providers Care Crtts Name Role Phone José Miguel Verde MD Primary Care Provider + [phone] Encounter Details Date Type Department Care Team (Late st Contact Info) Description 01/09/2019 Transcribed Document [facility] [place] Family Medicine [address] [place] [address] ProviderNitin MD [address], [place] [id number] Social History Tobacco Use Types Packs/Day Years [...] - Historical ProviderMD - 01/09/2019 8:32 AM PROJECT MANAGEMENT ANALYST CR Chest 1 Vw Portable Ordered: 01/08/2019 Modified Reason for Exam: chest pain 01/09/2019 07:59 01/09/2019 08:32 (ЕЛЕНА LINDSEY) No further action required documented in this encounter Plan of Treatment Not on file documented as of this encounter Visit Diagnoses Not on filedocumented in this encounter Care Teams Crtts Relationship Specialty Start Date End Date José Miguel Verde MD [address] [place] [address] PCP - General Adolescent Medicine 03/07/23 documented as of this encounter
--- OUTSIDE RECORDS SUMMARY | 2025-06-06 09:36 | XMS_ITS | Encounter Summary ---
Author Organization [employer] ([place], [place], [place], [place]) Address [address] [place] [address] Care Team Providers Care Oncology Research Rn Name Role Phone José Miguel Verde MD Primary Care Provider + [phone] Encounter Details Date Type Department Care Team (Late st Contact Info) Description 01/08/2019 Transcribed Document [facility] [place] [facility] [address] [place] [address] ProviderNitin MD [address] [place] [address] Social History Tobacco Use [...] Nitin Bueno MD - 01/08/2019 11:24 PM VICE CHAIRMAN [address] [place] [address] Patient Information Name: GINA HECTOR Age: [...] please contact the Patient Resource Center at [phone]. Please follow up with Lester Peace. With: Address: When: MELVIN RASCON [address] [place] [address], [address] [place] [phone] Business (1) Within 2 to 3 days [...] you start to feel better. ??? Take ywgr-ifv-iicdspn and prescription medicines only as told by [...] 04/17/2009 Document Revised: 07/24/2017 Document Reviewed: 07/24/2017 [employer] Interactive Patient Education ? 2017 [employer] Food Choices for Gastroesophageal Reflux Disease, [...] VegetablesTomatoes. Tomato juice. Tomato and spaghetti sauce. [place] peppers. Onion and garlic. Horseradish. FruitsOranges, grapefruit, [...] spearmint. Fats and OilsHigh-fat foods. This includes Thai fries and potato chips. OtherVinegar. Strong spices. [...] 04/30/2013 Document Revised: 04/06/2017 Document Reviewed: 09/03/2014 [employer] Interactive Patient Education ? 2017 [employer] Gastroesophageal Reflux Disease, Adult Introduction Normally, [...] vinegar, hot sauces, and BBQ sauce. ? [place] fruit juices and citrus fruits, such as oranges, olga, and limes. ? Tomato-based foods, such as red sauce, chili, salsa, and pizza with red sauce. ? Fried and fatty foods, such as donuts, kyrgyz fries, potato chips, and high-fat dressings. ? [...] any changes in your symptoms. ??? Take lefh-lzu-tshnrav and prescription medicines only as told by [...] range between ( 0.0 and 7.0 ) Garrett #: 0.53 K/uL -- Normal range between ( 0.16 and 1.00 ) Eos #: 0.03 x10(3)/uL -- Normal range between ( 0.00 and 0.80 ) Garrett %: 9.2 % -- Normal range between [...] verify that HECTORGINA Carranza was seen at [facility] on ,01/08/2019 23:24:10. This is [...] along the way. As a healthcare provider, [facility] recommends that you stop smoking. Assistance with quitting is available by contacting 4-114-HNMF-NOW. This is a free resource providing counseling, [...] Electronic Communications Privacy Act 18 U.S.C. ???Sections 3758-6348,?? and contain information intended for the specified [...] sure to sign up for the My [facility] patient portal, which gives you 05/06 access to your medical information ??? including these discharge instructions ??? using your computer, smartphone, or tablet. Just go to [employer] to get started. Questions? Call . Acknowledgment [...] Instructions: Emergency Physician: Electronically signed by Drew, [facility] Conversion Silviculture Teacher Cerner at 02/26/2023 11:12 PM CDT documented in this encounter Plan of Treatment Not on file documented as of this encounter Visit Diagnoses Not on filedocumented in this encounter Care Teams Oncology Research Rn Relationship Specialty Start Date End Date José Miguel Verde MD [address] [place] [address] PCP - General Adolescent Medicine 03/07/23 documented as of this encounter
--- OUTSIDE RECORDS SUMMARY | 2025-06-06 09:36 | XMS_ITS | Encounter Summary ---
Author Organization [employer] ([place], [place], [place], [place]) Address [address] [place] [address] Care Team Providers Care Refrigeration Manager Name Role Phone José Miguel Verde MD Primary Care Provider + [phone] Encounter Details Date Type Department Care Team (Late st Contact Info) Description 07/15/[address] [facility] [place] [address] [place] [address] ProviderNitin MD [address] [id number] Social History Tobacco Use Types Packs/Day Years [...] 07/15/2020 16:41 EDT Electronically signed by Drew [facility] Conversion Pack Puller Cerner at 02/26/2023 11:11 PM CDT documented in this encounter Plan of Treatment Not on file documented as of this encounter Visit Diagnoses Not on filedocumented in this encounter Care Teams Refrigeration Manager Relationship Specialty Start Date End Date José Miguel Verde MD [address] [place] [address] PCP - General Adolescent Medicine 03/07/23 documented as of this encounter
--- NOTE | 2025-06-06 09:59 | CT_ITS ---
FINAL REPORT TECHNIQUE: Thin section axial CT with contrast with multiplanar reconstruction This study was performed with techniques to keep radiation doses as low as reasonably achievable, (ALARA). Individualized dose reduction techniques using automated exposure control or adjustment of mA and/or kV according to the patient''s size were employed. CLINICAL HISTORY: cp, sob COMPARISON: none FINDINGS: Pulmonary vessels enhance in normal fashion without evidence of embolism. Thoracic aorta shows no dissection or aneurysm. No pulmonary mass or infiltrate is present. There is no significant pleural effusion. There is no significant pericardial effusion. No mediastinal or hilar adenopathy is present. IMPRESSION: No evidence of pulmonary embolism. No acute findings. Reviewed, Interpreted and Dictated by Berhane Ferris MD Transcribed by Mary Rayo Authenticated and . [facility]
[2025-06-06] MEDS: 0.9 % SODIUM CHLORIDE 50 ML VIAL IV (10:10)
[2025-06-06] MEDS: SODIUM CHLORIDE 0.9% 10ML SYR (RAD ONLY) 10 ML IV (10:10)
[2025-06-06] MEDS: IOPAMIDOL-370 (76%);100ML BOTTLE 80 ML IV (10:10)
[2025-06-06 10:12] LABS: Hematocrit 37.8 % (37.0-47.0); Hemoglobin 13.2 g/dL (12.2-16.2); Immature Granulocytes % 0.2 %; Mean Corpuscular HGB Conc 34.9 g/dL (31.8-35.4); Mean Corpuscular Hemoglobin 33.8 pg (27.0-31.2); Mean Corpuscular Volume 96.9 fl (81-99); Nucleated Red Blood Cells % 0 %; Platelet Count 135 K/mm3 (142-424); Red Blood Count 3.90 M/mm3 (4.20-5.40); Red Cell Distribution Width-SD 47.4 fL; White Blood Count 4.4 K/mm3 (4.8-10.8)
[2025-06-06] MEDS: ACETAMINOPHEN 500MG TAB 1000 MG PO (10:16)
[2025-06-06 10:17] LABS: Chloride 101 mmol/L (98-107)
[2025-06-06 10:18] LABS: Albumin Level 3.7 g/dl (3.5-5.0); Potassium 3.6 mmoL/L (3.5-5.1); Sodium 132 mmol/L (136-145)
[2025-06-06 10:20] LABS: Alanine Aminotransferase 28 U/L (12-78); Anion Gap 11.6 mEq/L (5-15); Aspartate Amino Transferase 38 U/L (14-36); Blood Urea Nitrogen 19 mg/dl (7-17); Carbon Dioxide 23 mmol/L (22.0-30.0); Creatinine Clearance Estimated 60 mL/min (50-200); Creatinine,Serum 0.90 mg/dl (0.52-1.04); Estimated Glomerular Filt Rate 61 ml/min (>60); GFR (African American) 73 ML/MIN (>60)
[2025-06-06 10:21] LABS: Albumin/Globulin Ratio 1.2 (1.1-1.8); Alkaline Phosphatase 61 U/L (38-126); Bilirubin,Total 1.6 mg/dl (0.2-1.3); Calcium 9.3 mg/dl (8.4-10.2); Globulin 3.0 g/dL (1.3-3.2); Glucose 113 mg/dl (74-100); Total Protein,Serum 6.7 g/dl (6.3-8.2)
[2025-06-06 10:27] LABS: INR 1.08 (0.9-1.1); Prothrombin Time 11.9 seconds (10.1-12.5)
[2025-06-06 10:32] LABS: Troponin I 0.03 ng/ml (0.00-0.034)
[2025-06-06 13:25] LABS: Troponin I 0.04 ng/ml (0.00-0.034)
--- NOTE | 2025-06-10 12:03 | PC.NURSE ---
Urine culture reviewed by Dr. Tapia. No new orders received.
== END 2025-06-06 15:08 | disposition home or self-care (01) ==
PROVIDERS: Emergency Provider Emergency Medicine; PCP Nurse Practitioner Family
DX: R07.9 Chest pain, unspecified (principal); E87.6 Hypokalemia; E87.1 Hypo-osmolality and hyponatremia; F41.9 Anxiety disorder, unspecified; I10 Essential (primary) hypertension; E78.5 Hyperlipidemia, unspecified; Z86.79 Personal history of other diseases of the circulatory system
CPT/HCPCS: 71275; 80053; 81001; 83735; 84484; 85025; 85610; 87086; 93005; 99284; 99285; J7120; Q9967

== ENCOUNTER 2025-06-06 21:13 | Emergency (ER) | payer MEDICARE, BC, SELFPAY ==
[2025-06-06 21:27] VITALS: BP 139/79; PULSE 61; RESP 20; TEMP 36.7; O2SAT 98; BMI 35.5
--- NOTE | 2025-06-06 21:29 | HMH.EDGENADL ---
Discharge Plan Disposition Patient Disposition: Home, Self-Care Condition: Good Prescriptions Prescriptions: No Action Gemtesa 75 mg tablet 75 mg PO DAILY cholecalciferol (vitamin D3) 125 mcg (5,000 unit) capsule 125 mcg PO DAILY Voquezna 20 mg tablet 20 mg PO DAILY Qty: 90 3RF cyanocobalamin (vitamin B-12) 1,000 mcg/mL solution 1,000 mcg IM MONTHLY alprazolam 0.25 MG tablet 0.25 mg PO TIDP PRN (Reason: Anxiety) cevimeline 30 MG capsule 30 mg PO TID hydroxychloroquine 200 MG tablet 200 mg PO DAILY Patient Comments: 1 a day. 2 the next day colchicine 0.6 MG tablet 0.6 mg PO DAILY scopolamine base 1 mg over 3 days patch 3 day 1 patch transdermal Q3D PRN (Reason: nausea and vomiting) Qty: 10 1RF aspirin 81 MG tablet,delayed release (DR/EC) 81 mg PO DAILY atenolol 50 MG tablet 50 mg PO DAILY cyclosporine [Restasis] 1 EACH dropperette 1 drp ophthalmic (eye) DAILY furosemide 20 mg tablet 20 mg PO DAILYP PRN (Reason: Fluid) Creon 36,000-114,000- 180,000 unit capsule,delayed release(DR/EC) 1 cap PO AC Rx Instructions: Take 1 capsule by mouth before meals/snacks max 6XD colestipol 1 gram tablet 1 g PO BID Creon 36,000-114,000- 180,000 unit capsule,delayed release(DR/EC) 1 cap PO DAILYP PRN (Reason: WITH SNACKS UP TO 3 TIMES DAILY.) atorvastatin [Lipitor] 20 mg tablet 20 mg PO HS Qty: 30 1RF nitrofurantoin monohyd/m-cryst [Macrobid] 100 mg capsule 100 mg PO Q12H 5 Days Qty: 10 0RF Rx Instructions: must administer with a meal/food isosorbide mononitrate 30 mg tablet extended release 24 hr 30 mg PO DAILY Qty: 30 1RF clopidogrel 75 mg Tablet 75 mg PO DAILY 30 Days Qty: 30 1RF clopidogrel [Plavix] 75 mg tablet 75 mg PO DAILY Qty: 30 1RF sertraline [Zoloft] 25 mg tablet 25 mg PO DAILY Qty: 30 0RF Referrals Follow up/Referrals: José Miguel Verde MD [Primary Care Provider, Internal Medicine] - See instructions Activity Restrictions/Add. Instructions Additional Instructions/Restrictions: Please follow-up with your primary care provider. We will follow-up on your urine and call you if the culture is positive. Recommend returning with a stool sample for testing. Please return to the emergency department if you develop any new or worsening symptoms or become concerned for your health. Clinical Impressions Clinical Impression: Generalized weakness Diarrhea Qualifiers: Diarrhea type: unspecified type Qualified Code(s): R19.7 - Diarrhea, unspecified Instructions Patient Instructions: DI for Diarrhea and Traveler's Diarrhea -- Adult, DI for Diarrhea and Traveler's Diarrhea -- Child, DI for Nausea -- Adult, DI for Nausea -- Child Print Language Print Language: Palauan Discharge ED Provider: Claudio Chen General Adult HPI <Sreekanth Tapia MD - Last Filed: 06/07/25 00:17> General Chief complaint: Nausea/Vomiting/Diarrhea Stated complaint: diarrhea Time Seen by Provider: 06/06/25 21:17 History of Present Illness HPI narrative: Patient is a 79-year-old female with a history of coronary disease s/p CABG 20 years ago and PCI on May 15, hypertension, hyperlipidemia, arthritis, anxiety. Patient has been seen now 4 times in the emergency department over the course of 4 days. Patient states that she was having chest pain shortness of breath this morning and had some diarrhea at that time. She ultimately she was discharged. She states that the chest pain and shortness of breath have improved, however she has had total of 3 episodes of diarrhea. She continues to have some lightheadedness. She arrived to the emergency department without clothes. She denies any abdominal pain or fever. She denies any current chest pain or shortness of breath. Related Data Home Medications ?Medication ?Instructions ?Recorded ?Confirmed alprazolam 0.25 mg tablet 0.25 mg PO TIDP PRN Anxiety 01/06/19 06/02/25 cevimeline 30 mg capsule 30 mg PO TID 01/06/19 06/02/25 colchicine 0.6 mg tablet 0.6 mg PO DAILY 01/06/19 06/02/25 hydroxychloroquine 200 mg tablet 200 mg PO DAILY 01/06/19 06/02/25 aspirin 81 mg tablet,delayed 81 mg PO DAILY 01/04/20 06/02/25 release atenolol 50 mg tablet 50 mg PO DAILY 01/04/20 06/02/25 cyclosporine 0.05 % eye drops in a 1 drp ophthalmic (eye) DAILY dry 01/04/20 06/02/25 dropperette (Restasis) eyes cyanocobalamin (vitamin B-12) 1,000 mcg IM MONTHLY 08/21/24 06/02/25 1,000 mcg/mL injection solution cholecalciferol (vitamin D3) 125 125 mcg PO DAILY 12/18/24 06/02/25 mcg (5,000 unit) capsule furosemide 20 mg tablet 20 mg PO DAILYP PRN Fluid 12/18/24 06/02/25 vibegron 75 mg tablet (Gemtesa) 75 mg PO DAILY 12/18/24 06/02/25 [id number] 1 cap PO AC 03/26/25 06/02/25 36,000-114,000-180,000 unit capsule,delay rel (Creon) colestipol 1 gram tablet 1 g PO BID 06/02/25 06/02/25 [id number]-[id number] 1 cap PO DAILYP PRN WITH SNACKS UP 06/02/25 06/02/25 36,000-114,000-180,000 unit TO 3 TIMES DAILY. capsule,delay rel (Creon) Previous Rx's ?Medication ?Instructions ?Recorded vonoprazan 20 mg tablet (Voquezna) 20 mg PO DAILY #90 tabs 09/23/24 scopolamine base 1 mg over 3 days 1 patch transdermal Q3D PRN nausea 05/15/25 transdermal patch and vomiting #10 ea atorvastatin 20 mg tablet (Lipitor) 20 mg PO HS #30 tabs 06/03/25 clopidogrel 75 mg tablet 75 mg PO DAILY 30 days #30 tabs 06/03/25 clopidogrel 75 mg tablet (Plavix) 75 mg PO DAILY #30 tabs 06/03/25 isosorbide mononitrate 30 mg 30 mg PO DAILY #30 tabs 06/03/25 tablet,extended release 24 hr nitrofurantoin 100 mg PO Q12H 5 days #10 caps 06/03/25 monohydrate/macrocrystals 100 mg capsule (Macrobid) sertraline 25 mg tablet (Zoloft) 25 mg PO DAILY #30 tabs 06/03/25 Allergies Allergy/AdvReac Type Severity Reaction Status Date / Time Penicillins Allergy Intermediate Rash Verified 06/05/25 08:57 ibuprofen (From Motrin) Allergy Mild Rash Verified 06/05/25 08:57 sulfamethoxazole (From Allergy Unknown Verified 06/05/25 08:57 Bactrim) allergy reaction trimethoprim (From Bactrim) Allergy Unknown Verified 06/05/25 08:57 allergy reaction PFSH <Sreekanth Tapia MD - Last Filed: 06/07/25 00:17> [facility] Disclaimer: The information contained in this section may have been updated after the patient was seen, as this information can be updated by other users. Medical History (Updated 06/07/25 @ 00:53 by Claudio Chen MD) Irritation symptom of skin Chest pain Chest pain Elevated brain natriuretic peptide (BNP) level Dizziness Nausea Personal history of adenomatous and serrated colon polyps Abdominal pain Atypical chest pain Chest pain Chest pain Heart palpitations Chest pain Atypical chest pain Hyperbilirubinemia Elevated LFTs Acute dehydration Pancreatitis Abdominal pain Chest pain, precordial Neck stiffness Anxiety Diverticulitis Pancreatitis Hyperlipidemia Hypertension Rheumatoid arthritis Osteoarthritis Hemorrhoids Heart disease Gout GERD (gastroesophageal reflux disease) Colon polyps Colitis CAD (coronary artery disease) History of blood transfusion Surgical History H/O left wrist surgery History of right hip replacement History of cholecystectomy History of back surgery Hx of CABG H/O right wrist surgery Family History Father Cancer Social History Smoking Status: Never smoker alcohol intake: never substance use type: denies use current occupational status: retired Travel in the last 8 weeks?: None caffeine: Yes Have you lived/traveled outside US in past 30 days?: No Contact w/someone who lives/traveled outside US past 30 days?: No Exposure to someone with infectious disease in past 14 days?: No Do you have a fever (greater than 100.4 F or 38 C)?: No Have you tested positive for COVID-19?: No Exposed to someone with COVID-19 in past 14 days?: No Do you have a sore throat?: No Do you have a cough?: No Do you have any weakness?: No Do you have any diarrhea?: No Are you experiencing any unusual bleeding?: No Do you have any muscle aches/pain?: No Do you have any abdominal pain?: No Are you experiencing loss of taste or smell?: No Other Medical History Have you received the Flu Vaccine for this season: No Have you received the Pneumonia Vaccine: No <Sreekanth Tapia MD - Last Filed: 06/07/25 00:17> ROS Obtained: Yes Systems reviewed as appropriate & no additional complaints except as documented Physical Exam <Sreekanth Tapia MD - Last Filed: 06/07/25 00:17> General General appearance: alert, in no apparent distress and anxious Head Head exam: atraumatic Eye Eye exam: Present normal appearance ENT ENT exam: Present normal external ear exam Neck Neck exam: Present full ROM Chest Chest inspection: Present symmetric chest wall rise Respiratory Respiratory exam: Present normal lung sounds bilaterally; Absent respiratory distress, wheezes or stridor Cardiovascular Cardiovascular exam: Present regular rate and normal rhythm Abdominal Exam Abdominal exam: Present soft; Absent tenderness or guarding Extremities Exam Extremities exam: Present normal inspection Back Exam Back exam: Present normal inspection Neurological Exam Neurological exam: Present alert and oriented X3 Psychiatric Psychiatric exam: Present normal affect Skin Skin exam: Present warm and dry Medical Decision Making <Sreekanth Tapia MD - Last Filed: 06/07/25 00:17> Medical Records Screening: Per USPSTF and CDC recommendations, given the prevalence of disease in our region, it is our hospital?s policy to screen for HIV and viral Hepatitis for all patients aged 18 and over and those with ongoing risk factors. Earl Inquiry Pt receiving controlled substance: No Vital Signs: 06/06/25 21:27 06/06/25 23:54 06/07/25 00:54 Temperature 98.1 F 98 F Temperature Source Oral Pulse Rate 60 62 Pulse Rate [Right] 61 Respiratory Rate 20 16 16 Blood Pressure 144/95 H 141/64 H Blood Pressure [Right Arm] 139/79 Blood Pressure Mean [Right Arm] 99 02 Sat by Pulse Oximetry 98 99 Oxygen Delivery Method Room Air Room Air Room Air Lab Data Lab Results 06/06/25 21:40: WBC 5.1, RBC 3.94 L, Hgb 13.1, Hct 38.3, MCV 97.2, MCH 33.2 H, MCHC 34.2, RDW 13.4, Plt Count 141 L, MPV 10.8 H, Neut % (Auto) 71.9, Lymph % (Auto) 17.2, Lamb % (Auto) 10.1 H, Eos % (Auto) 0.2, Baso % (Auto) 0.4, Neut # (Auto) 3.7, Lymph # (Auto) 0.9, Lamb # (Auto) 0.5, Eos # (Auto) 0.0, Baso # (Auto) 0.0, Sodium 130 L, Potassium 3.3 L, Chloride 101, Carbon Dioxide 22, Anion Gap 10.3, BUN 18 H, Creatinine 0.90, Estimated Creat Clear 73, Estimated GFR 61, Est GFR ( Amer) 73, Glucose 77 D, Calcium 9.5, Magnesium 1.8, Total Bilirubin 1.4 H, AST 37 H, ALT 26, Alkaline Phosphatase 61, Total Protein 6.6, Albumin 4.4 D, Globulin 2.2, Albumin/Globulin Ratio 2.0 H 06/06/25 23:50: Urine Color Yellow, Urine Appearance Sl cloudy, Urine pH 6.5, Ur Specific Belle <= 1.005, Urine Protein Negative, Urine Glucose (UA) Negative, Urine Ketones Negative, Urine Blood 1+ A, Urine Nitrate Negative, Urine Bilirubin Negative, Urine Urobilinogen 0.2, Ur Leukocyte Esterase 3+ A, Urine RBC Occasional, Urine WBC 5-10, Ur Squamous Epith Cells 10-20, Urine Bacteria Trace 06/06/25 21:40 06/06/25 21:40 Orders (Tests/Meds): ED MEDICATIONS Discontinued Medications Generic Name Dose Route Start Last Admin Trade Name Maulik PRN Reason Stop Dose Admin Lactated Ringer's 500 mls @ 999 mls/hr 06/06/25 21:28 06/06/25 21:45 Lactated Ringer's 500ml IV 06/06/25 21:58 999 mls/hr .Q31M ONE Administration ORDERS Category Date Time Status CBC w/Auto Diff [Complete Blood Count Auto Diff] Stat Lab 06/06/25 21:40 Completed CMP [Comprehensive Metabolic Panel] Stat Lab 06/06/25 21:40 Completed Magnesium Stat Lab 06/06/25 21:40 Completed UA [Urinalysis and Microscopic] Stat Lab 06/06/25 23:50 Completed Urine Culture Stat Micro 06/06/25 23:50 Received Medical Decision Narrative: Patient is a 79-year-old female with a history of coronary disease s/p CABG 20 years ago and PCI on May 15, hypertension, hyperlipidemia, arthritis, anxiety. Patient has been seen now 4 times in the emergency department over the course of 4 days. Patient states that she was having chest pain shortness of breath this morning and had some diarrhea at that time. She ultimately she was discharged. She states that the chest pain and shortness of breath have improved, however she has had total of 3 episodes of diarrhea. She continues to have some lightheadedness. She arrived to the emergency department without clothes. She denies any abdominal pain or fever. She denies any current chest pain or shortness of breath. On arrival, patient is normotensive, heart rate within normal limits, afebrile, breathing company on room air with appropriate oxygen saturation. Physical exam, as stated above, reveals an overall well-appearing female in no distress. She does appear anxious. GCS 15. Abdomen is soft, nontender nondistended. She appears well-hydrated. Cardiopulmonary exam is unremarkable. Differential diagnosis includes, but is not limited to: Malingering, UTI, colitis, viral gastrointestinal illness, among others. The most morbid conditions were considered and workup was based on these. Workup in the emergency department included a CBC, CMP, magnesium level, urinalysis. No leukocytosis, no anemia, sodium chronically low, at 130 (appears close to baseline), mild hypokalemia with potassium of 3.3. Bilirubin mildly elevated 1.4 (at baseline) liver enzymes within normal limits, urinalysis pending at this time. Previous notes were reviewed and patient has presented to the emergency department 6 times since the beginning of May for varying complaints, including orthostasis, chest pain and diarrhea. Patient was previously admitted and offered home health, however she refused and was subsequently discharged. She was deemed appropriate for discharge home with plan for outpatient physical therapy, however patient states that she is scared to drive. I discussed with patient at length that she would be a great candidate for home health to help her with her daily activities and getting to her appointments, however she states that her house is too big of mess and she does not want home health to come to her house. Admission at this time would not be of any benefit as she wants to pursue outpatient physical therapy and is not a candidate for assisted living at this time. I also spoke with Dr. Gallegos who agreed that she has refused most things offered to her on the inpatient side and there would be no additional benefit for her getting admitted at this time. Patient's care was handed off to Dr. Chen, pending completion of her urinalysis but she will likely be appropriate for discharge once this is completed. <Claudio Chen MD - Last Filed: 06/07/25 04:58> Vital Signs: 06/06/25 21:27 06/06/25 23:54 06/07/25 00:54 Temperature 98.1 F 98 F Temperature Source Oral Pulse Rate 60 62 Pulse Rate [Right] 61 Respiratory Rate 20 16 16 Blood Pressure 144/95 H 141/64 H Blood Pressure [Right Arm] 139/79 Blood Pressure Mean [Right Arm] 99 02 Sat by Pulse Oximetry 98 99 Oxygen Delivery Method Room Air Room Air Room Air Lab Data Lab Results 06/06/25 21:40: WBC 5.1, RBC 3.94 L, Hgb 13.1, Hct 38.3, MCV 97.2, MCH 33.2 H, MCHC 34.2, RDW 13.4, Plt Count 141 L, MPV 10.8 H, Neut % (Auto) 71.9, Lymph % (Auto) 17.2, Lamb % (Auto) 10.1 H, Eos % (Auto) 0.2, Baso % (Auto) 0.4, Neut # (Auto) 3.7, Lymph # (Auto) 0.9, Lamb # (Auto) 0.5, Eos # (Auto) 0.0, Baso # (Auto) 0.0, Sodium 130 L, Potassium 3.3 L, Chloride 101, Carbon Dioxide 22, Anion Gap 10.3, BUN 18 H, Creatinine 0.90, Estimated Creat Clear 73, Estimated GFR 61, Est GFR ( Amer) 73, Glucose 77 D, Calcium 9.5, Magnesium 1.8, Total Bilirubin 1.4 H, AST 37 H, ALT 26, Alkaline Phosphatase 61, Total Protein 6.6, Albumin 4.4 D, Globulin 2.2, Albumin/Globulin Ratio 2.0 H 06/06/25 23:50: Urine Color Yellow, Urine Appearance Sl cloudy, Urine pH 6.5, Ur Specific Belle <= 1.005, Urine Protein Negative, Urine Glucose (UA) Negative, Urine Ketones Negative, Urine Blood 1+ A, Urine Nitrate Negative, Urine Bilirubin Negative, Urine Urobilinogen 0.2, Ur Leukocyte Esterase 3+ A, Urine RBC Occasional, Urine WBC 5-10, Ur Squamous Epith Cells 10-20, Urine Bacteria Trace Orders (Tests/Meds): ED MEDICATIONS Discontinued Medications Generic Name Dose Route Start Last Admin Trade Name Fredinorah PRN Reason Stop Dose Admin Lactated Ringer's 500 mls @ 999 mls/hr 06/06/25 21:28 06/06/25 21:45 Lactated Ringer's 500ml IV 06/06/25 21:58 999 mls/hr .Q31M ONE Administration ORDERS Category Date Time Status CBC w/Auto Diff [Complete Blood Count Auto Diff] Stat Lab 06/06/25 21:40 Completed CMP [Comprehensive Metabolic Panel] Stat Lab 06/06/25 21:40 Completed Magnesium Stat Lab 06/06/25 21:40 Completed UA [Urinalysis and Microscopic] Stat Lab 06/06/25 23:50 Completed Urine Culture Stat Micro 06/06/25 23:50 Received Medical Decision Narrative: Patient is a 79-year-old female with a history of coronary disease s/p CABG 20 years ago and PCI on May 15, hypertension, hyperlipidemia, arthritis, anxiety. Patient has been seen now 4 times in the emergency department over the course of 4 days. Patient states that she was having chest pain shortness of breath this morning and had some diarrhea at that time. She ultimately she was discharged. She states that the chest pain and shortness of breath have improved, however she has had total of 3 episodes of diarrhea. She continues to have some lightheadedness. She arrived to the emergency department without clothes. She denies any abdominal pain or fever. She denies any current chest pain or shortness of breath. On arrival, patient is normotensive, heart rate within normal limits, afebrile, breathing company on room air with appropriate oxygen saturation. Physical exam, as stated above, reveals an overall well-appearing female in no distress. She does appear anxious. GCS 15. Abdomen is soft, nontender nondistended. She appears well-hydrated. Cardiopulmonary exam is unremarkable. Differential diagnosis includes, but is not limited to: Malingering, UTI, colitis, viral gastrointestinal illness, among others. The most morbid conditions were considered and workup was based on these. Workup in the emergency department included a CBC, CMP, magnesium level, urinalysis. No leukocytosis, no anemia, sodium chronically low, at 130 (appears close to baseline), mild hypokalemia with potassium of 3.3. Bilirubin mildly elevated 1.4 (at baseline) liver enzymes within normal limits, urinalysis pending at this time. Previous notes were reviewed and patient has presented to the emergency department 6 times since the beginning of May for varying complaints, including orthostasis, chest pain and diarrhea. Patient was previously admitted and offered home health, however she refused and was subsequently discharged. She was deemed appropriate for discharge home with plan for outpatient physical therapy, however patient states that she is scared to drive. I discussed with patient at length that she would be a great candidate for home health to help her with her daily activities and getting to her appointments, however she states that her house is too big of mess and she does not want home health to come to her house. Admission at this time would not be of any benefit as she wants to pursue outpatient physical therapy and is not a candidate for assisted living at this time. I also spoke with Dr. Gallegos who agreed that she has refused most things offered to her on the inpatient side and there would be no additional benefit for her getting admitted at this time. Patient's care was handed off to Dr. Chen, pending completion of her urinalysis but she will likely be appropriate for discharge once this is completed. Gustavo STEELE: I assumed care of the patient at the time of handoff from the prior provider. On reassessment patient is hemodynamically stable. Her urinalysis appears contaminated, indeterminant as to whether not she has an infection. She reports no urinary symptoms at this time. She has not been able to have a bowel movements since she has been here and so has not been able to provide us a stool sample with regards to her diarrhea. I had an extensive discussion with patient regarding her presentation. She again does not want home health, nor does she want to be admitted for rehab reassessment at this time. I offered her antibiotics to treat a possible UTI but she said she would prefer to wait for the urine culture results. I gave her an outpatient order form for stool sample to assess for C. difficile and other pathology, especially given her recent admission. I think the diarrhea is likely result of her recent antibiotic use. Patient was discharged in stable condition with return precautions. We will call her back if her urine culture becomes positive. Critical Care <Sreekanth Tapia MD - Last Filed: 06/07/25 00:17> Critical Care Time Critical Care Time: No
--- OUTSIDE RECORDS SUMMARY | 2025-06-06 21:40 | XMS_ITS | Encounter Summary ---
Author Organization [employer] ([place], [place], [place], [place]) Address [address] [place] [address] Care Team Providers Care Tangled Yarn Spool Straightener Name Role Phone José Miguel Verde MD Primary Care Provider + [phone] Encounter Details Date Type Department Care Team (Late st Contact Info) Description 01/08/2019 Transcribed Document [facility] [address] [place] [address] ProviderNitin MD [address], [place] [id number] Social History Tobacco Use Types Packs/Day Years [...] - Nitin ProviderMD - 01/08/2019 7:04 PM MENTAL HEALTH AIDE Patient: GINA HECTOR Age: 73 years Sex: [...] noted. Histroy of triple bypass. Dr. preciado support merchandiser. . History of Present Illness The patient [...] EST Height Source Stated Height Entry Format [place] Height/Length, [place] (ft) 5 ft Height/Length [place] 2 Inch CLINICALHEIGHT 157.48 cm [place] Body Weight 49.73 kg Weight Source, ED Critical estimated dosing weight Weight Entry Format [place] Weight Citizen [place] lb 230 lb CLINICALWEIGHT 104.55 kg Body [...] 18.0 % LOW Lymph # 1.04 x10(3)/uL [place] % 9.2 % HI [place] # 0.53 K/uL Eos % 0.5 % [...] appointment with her primary care doctor and support merchandiser for discussion of recent ER visits. Patient [...] following educational materials: Gastroesophageal Reflux Disease, Adult, [id number], Food Choices for Gastroesophageal Reflux Disease, Adult, [id number], Nonspecific Chest Pain, [id number]-[id number]. Follow up with: [facility] Within 2 to 3 days For further assistance with your Primary Care Physician please contact the Patient [facility] at [phone]. Please follow up with Lester Peace.; MELVIN [...] on filedocumented in this encounter Care Teams Tangled Yarn Spool Straightener Relationship Specialty Start Date End Date José Miguel Verde MD [address] [place] [id number] PCP - General Adolescent Medicine 03/07/23 documented as of this encounter
--- OUTSIDE RECORDS SUMMARY | 2025-06-06 21:40 | XMS_ITS | Clinical Summary ---
Author Organization [employer] ([place], [place], [place], [place]) Address [address] [place] [address] Care Team Providers Care Institution Director Name Role Phone José Miguel Verde MD Primary Care Provider + [phone] Allergies Active Allergy Reactions Criticality Noted Date [...] by mouth in the morning. Active pancrelipase, Xjg-Ijcv-Elsq, (CREON) 36,000-114,000 - 180,000 unit CpDR capsule [...] Date [place] rded Speak language other than [place] at home Not on file 12/01/2023 Want [...] 01/04/2018, [address]ICARE [place] [address] [address] [place] [address] SUPP Advance Directives For more information, please contact: [phone] * Full Code (Latest Code Status on File) Date Activated Date Inactivated Comments 03/10/2023 5:00 PM 03/11/2023 12:05 PM * Full Code Date Activated Date Inactivated Comments 03/07/2023 2:51 PM 03/10/2023 5:00 PM Care Teams Institution Director Relationship Specialty Start Date End Date José Miguel Verde MD [address] [place] [id number] PCP - General Adolescent Medicine 03/07/23
--- OUTSIDE RECORDS SUMMARY | 2025-06-06 21:40 | XMS_ITS | Clinical Summary ---
Author Organization [facility] Address [address] [place] [address] Care Team Providers Care Aircraft Instrument Tester Name Role Phone José Miguel Verde MD [...] 1 tablet by mouth Daily. Active Pancrelipase, Sbe-Javy-Tvkb, (Creon) [id number] units capsule delayed-release particles capsule Take 2 [...] Type Department Care Team Description 04/04/2025 Refill [facility] RHEUMATOLOGY [address] [address] Nichole Loya, TWINE WINDER from Last 3 Months Family History Medical [...] Description 09/12/2025 1:00 PM EDT Office Visit [facility] RHEUMATOLOGY [address] [address] Nichole Loya APRN [address] [address] Health Maintenance Due Date Last [...] Payer ( fective 2011-Present) Name:Gina Hector Member ID:[id number] Relation to Subscriber:Self Name:Gina Hector Subscriber ID:[id number] Payer ID:[id number] Group ID:Not on file Type:Not on file Address: [facility] [id number] [place] [id number] [facility] Care Teams Aircraft Instrument Tester Relationship Specialty Start Date End Date José Miguel Verde MD [address] [place] [address] PCP - General Adolescent Medicine 02/15/19
--- OUTSIDE RECORDS SUMMARY | 2025-06-06 21:40 | XMS_ITS | Encounter Summary ---
Author Organization [facility] Address [address] [place] [address] Care Team Providers Care Research Staff Member Name Role Phone José Miguel Verde MD Primary Care Provider [phone] Reason for Visit * Reason Comments Med Refill Encounter Details Date Type Department Care Team (Late st Contact Info) Description 04/04/2025 Refill [facility] RHEUM[facility]OLOGY [address] [address] Nichole Loya, WATER SOFTENER SERVICER AND INSTALLER [address] [id number] Social History Tobacco Use Types Packs/Day Years [...] Description 09/12/2025 1:00 PM EDT Office Visit [facility] RHEUMATOLOGY [address] [address] Nichole Loya, WATER SOFTENER SERVICER AND INSTALLER 330 [facility] [address] [place] [address] documented as of this encounter Visit Diagnoses Not on filedocumented in this encounter Care Teams Research Staff Member Relationship Specialty Start Date End Date José Miguel Verde MD [address] [facility] [address] [place] [address] PCP - General Adolescent Medicine 02/15/19 documented as of this encounter
--- OUTSIDE RECORDS SUMMARY | 2025-06-06 21:40 | XMS_ITS | Encounter Summary ---
Author Organization [employer] ([place], [place], [place], [place]) Address [address] [place] [address] Care Team Providers Care Newborn Hearing Screener Name Role Phone José Miguel Verde MD Primary Care Provider + [phone] Encounter Details Date Type Department Care Team (Late st Contact Info) Description 01/08/2019 Transcribed Document [facility] [place] Family Medicine [address] [place] [address] ProviderNitin MD [address] [place] [id number] Social History Tobacco Use Types Packs/Day Years [...] - Nitin ProviderMD - 01/08/2019 6:41 PM ORDERING BOX OPERATOR ED Assessment Entered On: 01/08/2019 19:12 EST Performed On: 01/08/2019 19:11 EST by Roc Saenz RN ED Quick Look Assessment Level of Consciousness : Alert, Awake Affect/Behavior : Appropriate, Calm Orientation : Oriented x 4 Roc Saenz RN - 01/08/2019 19:11 EST ED General-Functional Assess Information Obtained From : Patient Communication Barrier : None Primary Language : [place] Any Spiritual/Cultural Needs or Requests : No [...] EST Electronically signed by Drew [facility] Conversion Boilerhouse Mechanic Cerner at 02/26/2023 11:00 PM CDT documented in this encounter Plan of Treatment Not on file documented as of this encounter Visit Diagnoses Not on filedocumented in this encounter Care Teams Newborn Hearing Screener Relationship Specialty Start Date End Date José Miguel Verde MD [address] [place] [address] PCP - General Adolescent Medicine 03/07/23 documented as of this encounter
--- OUTSIDE RECORDS SUMMARY | 2025-06-06 21:40 | XMS_ITS | Encounter Summary ---
Author Organization [employer] ([place], [place], [place], [place]) Address [address] [place] [address] Care Team Providers Care Visitor Services Information Assistant Name Role Phone José Miguel Verde MD Primary Care Provider + [phone] Encounter Details Date Type Department Care Team (Late st Contact Info) Description 01/08/2019 Transcribed Document [facility] [place] Medicine [address] [place] [address] ProviderNitin MD [address] [place] [id number] Social History Tobacco Use Types Packs/Day Years [...] - Nitin ProviderMD - 01/08/2019 11:24 PM HYDROGRAPHIC ENGINEER [address] [place] [address] PERSON INFORMATION Name GINA HECTOR Age 73 Years 1945 Sex Female Language Cook Islander PCP MELVIN RASCON MD-INT Marital Status Med Service Emergency Medicine Acct# Arrival 01/08/2019 18:41:00 Visit Reason Chest pain; CHEST PAIN/LEFT ARM PAIN Acuity 3 - Urgent LOS 000 04:43 Depart Date: 01/08/19 11:24 PM Address: [address] [facility] [address] [place] [address] Comment: PROVIDER INFORMATION Provider Role Assigned Unassigned BEAR KING ARNP ED Physician 01/08/2019 18:50:05 Roc Saenz, SHREDDER OPERATOR Nurse 01/08/2019 18:59:17 KEYUR BROWN MD [...] PATIENT EDUCATION INFORMATION Instructions: Nonspecific Chest Pain, Moqc-cg-[id number]; Food Choices for Gastroesophageal Reflux Disease, Adult, Hlqz-nv-Ttwg; Gastroesophageal Reflux Disease, Adult, Wwwd-yg-Hsmc Follow up: With: Address: When: Return to Emergency Department Within As needed Comments: Follow-up as instructed Return if condition worsens With: Address: When: [facility]OURCE [facility] Within 2 to 3 days Comments: For further assistance with your Primary Care Physician please contact the Patient Resource Center at [phone]. Please follow up with Lester Peace. With: Address: When: MELVIN RASCON [address] [facility], [address] [place] [phone] Business (1) Within 2 to 3 days Comment: Electronically signed by Sarah [facility]version [facility] Home Health Aide Andersonner at 02/26/2023 10:59 PM CDT documented in this encounter Plan of Treatment Not on file documented as of this encounter Visit Diagnoses Not on filedocumented in this encounter Care Teams Visitor Services Information Assistant Relationship Specialty Start Date End Date José Miguel Verde MD [address] [place] [address] PCP - General Adolescent Medicine 03/07/23 documented as of this encounter
--- OUTSIDE RECORDS SUMMARY | 2025-06-06 21:40 | XMS_ITS | Encounter Summary ---
Author Organization [employer] ([place], [place], [place], [place]) Address [address] [place] [address] Care Team Providers Care Change Over Name Role Phone José Miguel Verde MD Primary Care Provider + [phone] Encounter Details Date Type Department Care Team (Late st Contact Info) Description 07/15/2020 Transcribed Document [facility] [place] Family Medicine [address] [place] [address] ProviderNitin MD [address] [place] [address] Social History Tobacco Use Types [...] 07/15/2020 4:17 PM CDT Electronically signed by [facility] Conversion Drug Abuse Technician Jessica at 02/26/2023 10:51 PM CDT documented in this encounter Plan of Treatment Not on file documented as of this encounter Visit Diagnoses Not on filedocumented in this encounter Care Teams Change Over Relationship Specialty Start Date End Date José Miguel Verde MD [address] [place] [address] PCP - General Adolescent Medicine 03/07/23 documented as of this encounter
--- OUTSIDE RECORDS SUMMARY | 2025-06-06 21:40 | XMS_ITS | Encounter Summary ---
Author Organization [employer] ([place], [place], [place], [place]) Address [address] [place] [address] Care Team Providers Care Manager Secondary Name Role Phone José Miguel Verde MD Primary Care Provider + [phone] Encounter Details Date Type Department Care Team (Late st Contact Info) Description 01/08/2019 Transcribed Document [facility] [place] Family Medicine [address] [place] [address] ProviderNitin MD [address] [place], [place] [id number] Social History Tobacco Use Types Packs/Day Years [...] - Nitin ProviderMD - 01/08/2019 11:23 PM LINE SUPPLY ED Discharge Entered On: 01/08/2019 23:23 EST [...] Nancy Lopez, RN - 01/08/2019 23:23 EST documented in this encounter Plan of Treatment Not on file documented as of this encounter Visit Diagnoses Not on filedocumented in this encounter Care Teams Manager Secondary Relationship Specialty Start Date End Date José Miguel Verde MD [address] [place] [address] PCP - General Adolescent Medicine 03/07/23 documented as of this encounter
--- OUTSIDE RECORDS SUMMARY | 2025-06-06 21:40 | XMS_ITS | Encounter Summary ---
Author Organization [employer] ([place], [place], [place], [place]) Address [address] [place] [address] Care Team Providers Care Entry Level Business Analyst Name Role Phone José Miguel Verde MD Primary Care Provider + [phone] Encounter Details Date Type Department Care Team (Late st Contact Info) Description 01/08/2019 Transcribed Document [facility] [place] [address] [place] [address] ProviderNitin MD [address] [place] [address] Social History Tobacco Use Types [...] Nitin Bueno MD - 01/08/2019 11:24 PM PRIMARY SPECIAL EDUCATOR [address] [place] [address] Patient Information Name: GINA HECTOR Age: [...] please contact the Patient Resource Center at [phone]. Please follow up with Lester Peace. With: Address: When: MELVIN RASCON [address] [place] [address], [address] [place] [phone] Business (1) Within 2 to 3 days [...] you start to feel better. ??? Take ezud-kbc-itjybib and prescription medicines only as told by [...] 04/17/2009 Document Revised: 07/24/2017 Document Reviewed: 07/24/2017 Else1calendar Interactive Patient Education ? 2017 [employer] Food Choices for Gastroesophageal Reflux Disease, [...] VegetablesTomatoes. Tomato juice. Tomato and spaghetti sauce. [place] peppers. Onion and garlic. Horseradish. FruitsOranges, grapefruit, [...] spearmint. Fats and OilsHigh-fat foods. This includes [place] fries and potato chips. OtherVinegar. Strong spices. [...] 04/30/2013 Document Revised: 04/06/2017 Document Reviewed: 09/03/2014 [employer] Interactive Patient Education ? 2017 [employer] Gastroesophageal Reflux Disease, Adult Introduction Normally, [...] vinegar, hot sauces, and BBQ sauce. ? [place] fruit juices and citrus fruits, such as oranges, olga, and limes. ? Tomato-based foods, such as red sauce, chili, salsa, and pizza with red sauce. ? Fried and fatty foods, such as donuts, nepalese fries, potato chips, and high-fat dressings. ? [...] any changes in your symptoms. ??? Take fraa-pvu-yfmuxps and prescription medicines only as told by [...] range between ( 0.0 and 7.0 ) Pondera #: 0.53 K/uL -- Normal range between ( 0.16 and 1.00 ) Eos #: 0.03 x10(3)/uL -- Normal range between ( 0.00 and 0.80 ) Pondera %: 9.2 % -- Normal range between [...] verify that HECTORGINA Carranza was seen at [facility] Emergency Department on ,01/08/2019 23:24:10. This [...] along the way. As a healthcare provider, [facility] recommends that you stop smoking. Assistance with quitting is available by contacting 9-557-XUEZ-NOW. This is a free resource providing counseling, [...] Electronic Communications Privacy Act 18 U.S.C. ???Sections 9199-5754,?? and contain information intended for the specified [...] sure to sign up for the My [facility] patient portal, which gives you 05/06 access to your medical information ??? including these discharge instructions ??? using your computer, smartphone, or tablet. Just go to [employer] to get started. Questions? Call . Acknowledgment [...] Yes____ No____ Nurse Providing Instructions: Emergency Physician: documented in this encounter Plan of Treatment Not on file documented as of this encounter Visit Diagnoses Not on filedocumented in this encounter Care Teams Entry Level Business Analyst Relationship Specialty Start Date End Date José Miguel Verde MD [address] [place] [address] PCP - General Adolescent Medicine 03/07/23 documented as of this encounter
--- OUTSIDE RECORDS SUMMARY | 2025-06-06 21:40 | XMS_ITS | Encounter Summary ---
Author Organization [employer] ([place], [place], [place], [place]) Address [address] [place] [address] Care Team Providers Care Steno Pool Supervisor Name Role Phone José Miguel Verde MD Primary Care Provider + [phone] Encounter Details Date Type Department Care Team (Late st Contact Info) Description 01/09/2019 Transcribed Document [facility] [place] Family Medicine [address] [place] [address] ProviderNitin MD [address] [place], [place] [id number] Social History Tobacco Use Types Packs/Day Years [...] - Historical ProviderMD - 01/09/2019 8:32 AM INSTRUMENT INSPECTOR CR Chest 1 Vw Portable Ordered: 01/08/2019 Modified Reason for Exam: chest pain 01/09/2019 07:59 01/09/2019 08:32 (ЕЛЕНА LINDSEY) No further action required documented in this encounter Plan of Treatment Not on file documented as of this encounter Visit Diagnoses Not on filedocumented in this encounter Care Teams Steno Pool Supervisor Relationship Specialty Start Date End Date José Miguel Verde MD [address] [place] [address] PCP - General Adolescent Medicine 03/07/23 documented as of this encounter
--- OUTSIDE RECORDS SUMMARY | 2025-06-06 21:40 | XMS_ITS | Encounter Summary ---
Author Organization [employer] ([place], [place], [place], [place]) Address [address] [place] [address] Care Team Providers Care Riding Double Name Role Phone José Miguel Verde MD Primary Care Provider + [phone] Encounter Details Date Type Department Care Team (Late st Contact Info) Description 01/08/2019 Transcribed Document [facility] [place] [address] [place] [address] ProviderNitin MD [address] [id number] Social History Tobacco Use Types Packs/Day Years [...] - Nitin ProviderMD - 01/08/2019 6:41 PM DIGESTER ED Triage Entered On: 01/08/2019 18:57 EST Performed On: 01/08/2019 18:47 EST by Catherine Pugh, OPTOMETRY ASSISTANT Triage Across the Room Triage Date/Time : 01/08/2019 18:47 EST Chief Complaint : Pt presents to the ER with chest pain that started Monday. Pain was left sided that radiates across chest. Burning in nature. Slight nausea noted. Histroy of triple bypass. Dr. preciado life science teacher. Catherine Pugh, RN - 01/08/2019 18:47 EST DCP GENERIC CODE Tracking Acuity : 3 - Urgent Tracking Group : [facility] ED Catherine Pugh RN - 01/08/2019 [...] ; Type: Allergy ; Updated By: TONY Cervanets; Reviewed Date: 01/08/2019 18:48 EST penicillin Estimated [...] PNED ; Probability: 0 ; Diagnosis Code: [id number] ED Height and Weight Height Source : Stated Height Entry Format : [employer] Height, Feet : 5 ft(Converted to: 152 cm, 60 Inch) Height, Inches : 2 Inch(Converted to: 0 ft 2 Inch, 5.08 cm) Clinical Height : 157.48 cm Weight Source, ED : Critical estimated dosing weight Weight Entry Format : [employer] Weight, Pounds : 230 lb Clinical Dosing Weight : 104.55 kg Body Surface Area (BSA) : 2.03 m2 Body Mass Index : 42.2 kg/m2 (>HHI) [place] Body Weight (IBW) : 49.73 kg Catherine Pugh RN - 01/08/2019 18:47 EST Electronically signed by [facility] Conversion Powerplant Operator Cerner at 02/26/2023 11:09 PM CDT documented in this encounter Plan of Treatment Not on file documented as of this encounter Visit Diagnoses Not on filedocumented in this encounter Care Teams Riding Double Relationship Specialty Start Date End Date José Miguel Verde MD [address] [place] [address] PCP - General Adolescent Medicine 03/07/23 documented as of this encounter
--- OUTSIDE RECORDS SUMMARY | 2025-06-06 21:40 | XMS_ITS | Encounter Summary ---
Author Organization [employer] ([place], [place], [place], [place]) Address [address] [place] [address] Care Team Providers Care Black Top Machine Operator Name Role Phone José Miguel Verde MD Primary Care Provider + [phone] Encounter Details Date Type Department Care Team (Late st Contact Info) Description 01/08/2019 Transcribed Document [facility] [place] Family Medicine [address] [place] [address] ProviderNitin MD [address] [place] [address] Social History Tobacco Use Types [...] - Nitin ProviderMD - 01/08/2019 11:21 PM VIBRATION TECHNICIAN Electronically signed by [facility] Conversion Approver Jessica at 02/26/2023 11:12 PM CDT documented in this encounter Plan of Treatment Not on file documented as of this encounter Visit Diagnoses Not on filedocumented in this encounter Care Teams Black Top Machine Operator Relationship Specialty Start Date End Date José Miguel Verde MD [address] [place] [address] PCP - General Adolescent Medicine 03/07/23 documented as of this encounter
--- OUTSIDE RECORDS SUMMARY | 2025-06-06 21:40 | XMS_ITS | Referral Summary ---
Author Organization [employer] ([place], [place], [place], [place]) Address [address] [place] [address] Care Team Providers Care Laminating Machine Tender Name Role Phone José Miguel Verde MD Primary Care Provider + [phone] Allergies Active Allergy Reactions Criticality Noted Date [...] by mouth in the morning. Active pancrelipase, Bwr-Cahd-Snzj, (CREON) 36,000-114,000 - 180,000 unit CpDR capsule [...] Date Hamilton rded Speak language other than Salvadorean at home Not on file 12/01/2023 Want [...] Advance Directives For more information, please contact: [phone] * Full Code (Latest Code Status on File) Date Activated Date Inactivated Comments 03/10/2023 5:00 PM 03/11/2023 12:05 PM * Full Code Date Activated Date Inactivated Comments 03/07/2023 2:51 PM 03/10/2023 5:00 PM Care Teams Laminating Machine Tender Relationship Specialty Start Date End Date José Miguel Verde MD [address] [place] [address] PCP - General Adolescent Medicine 03/07/23
--- OUTSIDE RECORDS SUMMARY | 2025-06-06 21:40 | XMS_ITS | Data Portability ---
Author Organization [facility] Address [address] [place] [address] Care Team Providers Care Technology Specialist Name Role Phone FROILAN BAGLEY Hematology/Oncology [phone] MEGAN TOM Pharmacometrician Assessment No assessment recorded. Plan of Treatment [...] By Organization Details Last Modified Time 09/09/2019 [id number] gout: care instructions [email or web address] Not available 09/09/2019 09:47:00 thrombocytopenia : care instructions [email or web address] Not available 09/09/2019 09:47:00 body mass index: care instructions [email or web address] Not available 09/09/2019 09:47:00 Body Mass Index: Care Instructions-LC [email or web address] Not available 09/09/2019 09:46:59 learning about healthy weight Not available 09/09/2019 09:47:00 rheumatoid arthritis diet: care instructions Not available 09/09/2019 09:47:00 Rheumatoid Arthritis (RA): Care Instructions [email or web address] Not available 09/09/2019 09:47:00 Reason for Referral None Reported. Results Created Date Observation Date Name Description Value Unit Range Abnormal Flag Note LastModifiedBy Organization Detail LastModifiedTime 09/09/20 19 09/09/2019 CBC w/ auto diff white blood cells 5.7 K/uL 3.8-10 .8 normal Not Available [facility] [address] [place] [address], [address], 09/09/2019 10:28:34 09/09/20 19 09/09/2019 CBC w/ auto diff red blood cells 4.35 M/uL 3.80-5 .20 normal Not Available [facility] [address] [place] [address], [address], 09/09/2019 10:28:34 09/09/20 19 09/09/2019 CBC w/ auto diff hemoglobin 14.2 g/dL 12.0-1 6.0 normal Not Available [facility] [address] [place] [address], [address], 09/09/2019 10:28:34 09/09/20 19 09/09/2019 CBC w/ auto diff hematocrit 41.2 % 35.0-4 7.0 normal Not Available [facility] [address] [place] [address], [address], 09/09/2019 10:28:34 09/09/20 19 09/09/2019 CBC w/ auto diff MCV 95 fL 80-100 normal Not Available [facility] [address] [place] [address], [address], 09/09/2019 10:28:34 09/09/20 19 09/09/2019 CBC w/ auto diff MCH 33 pg 26-35 normal Not Available [facility] [address] [place] [address], [address], 09/09/2019 10:28:34 09/09/20 19 09/09/2019 CBC w/ auto diff MCHC 34 g/dL 32-36 normal Not Available [facility] [address] [place] [address], [address], 09/09/2019 10:28:34 09/09/20 19 09/09/2019 CBC w/ auto diff RDW 13.8 % 11.0-1 5.0 normal Not Available [facility] [address] [place] [address], [address], 09/09/2019 10:28:34 09/09/20 19 09/09/2019 CBC w/ auto diff MPV 9.2 fL 6.2-10 .5 normal Not Available [facility] [address] [place] [address], [address], 09/09/2019 10:28:34 09/09/20 19 09/09/2019 CBC w/ auto diff platelet count 128 K/uL 130-40 0 low Not Available [facility] [address] [place] [address], [address], 09/09/2019 10:28:34 09/09/20 19 09/09/2019 CBC w/ auto diff neutrophil,a bsolute 4.4 K/uL 1.6-8. 4 normal Not Available [facility] [address] [place] [address], [address], 09/09/2019 10:28:34 09/09/20 19 09/09/2019 CBC w/ auto diff lymphocyte,a bsolute 0.7 K/uL 0.4-5. 1 normal Not Available [facility] [address] [place] [address], [address], 09/09/2019 10:28:34 09/09/20 19 09/09/2019 CBC w/ auto diff monocyte,abs olute 0.5 K/uL 0.0-1. 2 normal Not Available [facility] [address] [place] [address], [address], 09/09/2019 10:28:34 09/09/20 19 09/09/2019 CBC w/ auto diff eosinophil,a bsolute 0.1 K/uL 0.0-0. 8 normal Not Available [facility] [address] [place] [address], [address], 09/09/2019 10:28:34 09/09/20 19 09/09/2019 CBC w/ auto diff basophil,abs olute 0.0 K/uL 0.0-0. 3 normal Not Available [facility] [address] [place] [address], [address], 09/09/2019 10:28:34 09/09/20 19 09/09/2019 CBC w/ auto diff % neutrophils 76.0 % 42.0-7 8.0 normal Not Available [facility] [address] [place] [address], [address], 09/09/2019 10:28:34 09/09/20 19 09/09/2019 CBC w/ auto diff % lymphocytes 12.6 % 11.0-4 7.0 normal Not Available [facility] [address] [place] [address], [address], 09/09/2019 10:28:34 09/09/20 19 09/09/2019 CBC w/ auto diff % monocytes 8.8 % 0.0-11 .0 normal Not Available [facility] [address] [place] [address], [address], 09/09/2019 10:28:34 09/09/20 19 09/09/2019 CBC w/ auto diff % eosinophils 1.9 % 0.0-7. 0 normal Not Available [facility] [address] [place] [address], [address], 09/09/2019 10:28:34 09/09/2009/09/2019 CBC w/ auto diff % basophils 0.7 % 0.0-3. 0 normal Not Available [facility] [address] [place] [address], [address], 09/09/2019 10:28:34 09/09/20 19 09/09/2019 CBC w/ auto diff nucleated red cells 0.0 % 0.0-0. 9 normal Not Available [facility] [address] [place] [address], [address], 09/09/2019 10:28:34 09/09/20 19 09/09/2019 CBC w/ auto diff nucleated RBCs, absolute 0.00 K/uL not estab. normal Not Available [facility] [address] [place], [address], 09/09/2019 10:28:34 09/09/2009/09/2019 ldh, serum or plasm a LDH 248 U/L 135-21 4 high Not Available [facility] [address] [place], [address], 09/09/2019 11:26:41 09/09/2009/09/2019 vitam in B12 + folat e, serum or blood folic acid 18.4 NG/mL 4.8-24 .2 normal Not Available [facility] [address] [place], [address], 09/09/2019 11:43:22 09/09/20 19 09/09/2019 vitam in B12 + folat e, serum or blood vitamin B12 718 pg/mL 232-12 45 normal Not Available [facility] [address] [place], [address], 09/09/2019 11:43:22 09/09/2009/19/2019 JAYDEN (anti nucle ar [...] rns (http s://d oi.or g/10. 1515/ [facility]- 2017- 0052) For addit ional infor roxanna monge refer to http: //sandip Barrientosia jovanni ics.c om/fa q/FAQ 177 (This link is being provi ded for infor david darnell/ educa sidney l purpo ses only. ) TEST PERFO RMED AT: [facility] [address] [place] [address] WHIT Carranza MD Not Available [facility] [address] [place] [address], [address], 09/19/2019 16:56:22 04/20/20 20 04/20/2020 CBC w/ auto diff white blood cells 5.9 K/uL 3.8-10 .8 normal Not Available [facility] [address] [place] [address], [address], 04/20/2020 11:52:50 04/20/20 20 04/20/2020 CBC w/ auto diff red blood cells 4.40 M/uL 3.80-5 .20 normal Not Available [facility] [address] [place] [address], [address], 04/20/2020 11:52:50 04/20/2004/20/2020 CBC w/ auto diff hemoglobin 14.5 g/dL 12.0-1 6.0 normal Not Available [facility] [address] [place] [address], [address], 04/20/2020 11:52:50 04/20/2004/20/2020 CBC w/ auto diff hematocrit 42.0 % 35.0-4 7.0 normal Not Available [facility] [address] [place] [address], [address], 04/20/2020 11:52:50 04/20/20 20 04/20/2020 CBC w/ auto diff MCV 96 fL 80-100 normal Not Available [facility] [address] [place] [address], [address], 04/20/2020 11:52:50 04/20/20 20 04/20/2020 CBC w/ auto diff MCH 33 pg 26-35 normal Not Available [facility] [address] [place] [address], [address], 04/20/2020 11:52:50 04/20/20 20 04/20/2020 CBC w/ auto diff MCHC 34 g/dL 32-36 normal Not Available [facility] [address] [place] [address], [address], 04/20/2020 11:52:50 04/20/20 20 04/20/2020 CBC w/ auto diff RDW 13.6 % 11.0-1 5.0 normal Not Available [facility] [address] [place] [address], [address], 04/20/2020 11:52:50 04/20/20 20 04/20/2020 CBC w/ auto diff MPV 9.0 fL 6.2-10 .5 normal Not Available [facility] [address] [place] [address], [address], 04/20/2020 11:52:50 04/20/20 20 04/20/2020 CBC w/ auto diff platelet count 132 K/uL 130-40 0 normal Not Available [facility] [address] [place] [address], [address], 04/20/2020 11:52:50 04/20/20 20 04/20/2020 CBC w/ auto diff neutrophil,a bsolute 3.9 K/uL 1.6-8. 4 normal Not Available [facility] [address] [place] [address], [address], 04/20/2020 11:52:50 04/20/20 20 04/20/2020 CBC w/ auto diff lymphocyte,a bsolute 1.3 K/uL 0.4-5. 1 normal Not Available [facility] [address] [place] [address], [address], 04/20/2020 11:52:50 04/20/20 20 04/20/2020 CBC w/ auto diff monocyte,abs olute 0.6 K/uL 0.0-1. 2 normal Not Available [facility] [address] [place] [address], [address], 04/20/2020 11:52:50 04/20/20 20 04/20/2020 CBC w/ auto diff eosinophil,a bsolute 0.1 K/uL 0.0-0. 8 normal Not Available [facility] [address] [place] [address], [address], 04/20/2020 11:52:50 04/20/20 20 04/20/2020 CBC w/ auto diff basophil,abs olute 0.1 K/uL 0.0-0. 3 normal Not Available [facility] [address] [place] [address], [address], 04/20/2020 11:52:50 04/20/20 20 04/20/2020 CBC w/ auto diff % neutrophils 65.0 % 42.0-7 8.0 normal Not Available [facility] [address] [place] [address], [address], 04/20/2020 11:52:50 04/20/20 20 04/20/2020 CBC w/ auto diff % lymphocytes 21.6 % 11.0-4 7.0 normal Not Available [facility] [address] [place] [address], [address], 04/20/2020 11:52:50 04/20/20 20 04/20/2020 CBC w/ auto diff % monocytes 10.0 % 0.0-11 .0 normal Not Available [facility] [address] [place] [address], [address], 04/20/2020 11:52:50 04/20/20 20 04/20/2020 CBC w/ auto diff % eosinophils 2.5 % 0.0-7. 0 normal Not Available [facility] [address] [place] [address], [address], 04/20/2020 11:52:50 04/20/20 20 04/20/2020 CBC w/ auto diff % basophils 0.9 % 0.0-3. 0 normal Not Available [facility] [address] [place] [address], [address], 04/20/2020 11:52:50 04/20/20 20 04/20/2020 CBC w/ auto diff nucleated red cells 0.1 % 0.0-0. 9 normal Not Available [facility] [address] [place] [address], [address], 04/20/2020 11:52:50 04/20/20 20 04/20/2020 CBC w/ auto diff nucleated RBCs, absolute 0.00 K/uL not estab. normal Not Available [facility] [address] [place] [address], [address], 04/20/2020 11:52:50 04/20/20 20 04/20/2020 CMP, serum or plasm a glucose 109 mg/dL 74-100 high Not Available [facility] [address] [place] [address], [address], 04/20/2020 12:16:18 04/20/20 20 04/20/2020 CMP, serum or plasm a blood urea nitrogen 24 mg/dL 6-20 high Not Available [facility] [address] [place] [address], [address], 04/20/2020 12:16:18 04/20/20 20 04/20/2020 CMP, serum or plasm a creatinine 1.07 mg/dL 0.50-0 .95 high Not Available [facility] [address] [place] [address], [address], 04/20/2020 12:16:18 04/20/20 20 04/20/2020 CMP, serum or plasm a BUN/creatini ne ratio 22 (calc ) 10-20 high Not Available [facility] [address] [place] [address], [address], 04/20/2020 12:16:18 04/20/20 20 04/20/2020 CMP, serum or plasm a sodium 143 mmol/ L 136-14 5 normal Not Available [facility] [address] [place] [address], [address], 04/20/2020 12:16:18 04/20/20 20 04/20/2020 CMP, serum or plasm a potassium 4.3 mmol/ L 3.4-5. 0 normal Not Available [facility] [address] [place] [address], [address], 04/20/2020 12:16:18 04/20/20 20 04/20/2020 CMP, serum or plasm a chloride 107 mmol/ L 98-107 normal Not Available [facility] [address] [place] [address], [address], 04/20/2020 12:16:18 04/20/20 20 04/20/2020 CMP, serum or plasm a carbon dioxide 24 mmol/ L 20-32 normal Not Available [facility] [address] [place] [address], [address], 04/20/2020 12:16:18 04/20/20 20 04/20/2020 CMP, serum or plasm a anion gap 12 (calc ) 7-25 normal Not Available [facility] [address] [place] [address], [address], 04/20/2020 12:16:18 04/20/20 20 04/20/2020 CMP, serum or plasm a calcium 9.7 mg/dL 8.6-10 .2 normal Not Available [facility] [address] [place] [address], [address], 04/20/2020 12:16:18 04/20/20 20 04/20/2020 CMP, serum or plasm a total protein 7.0 g/dL 6.4-8. 3 normal Not Available [facility] [address] [place] [address], [address], 04/20/2020 12:16:18 04/20/20 20 04/20/2020 CMP, serum or plasm a albumin 4.4 g/dL 3.5-5. 2 normal Not Available [facility] [address] [place] [address], [address], 04/20/2020 12:16:18 04/20/20 20 04/20/2020 CMP, serum or plasm a globulin 2.6 g/dL_ (calc ) 1.5-4. 5 normal Not Available [facility] [address] [place] [address], [address], 04/20/2020 12:16:18 04/20/2004/20/2020 CMP, serum or plasm a albumin/glob ulin ratio 1.7 (calc ) 1.1-2. 5 normal Not Available [facility] [address] [place] [address], [address], 04/20/2020 12:16:18 04/20/20 20 04/20/2020 CMP, serum or plasm a bilirubin, total 0.7 mg/dL 0.1-1. 2 normal Not Available [facility] [address] [place] [address], [address], 04/20/2020 12:16:18 04/20/20 20 04/20/2020 CMP, serum or plasm a alkaline phosphatase 71 U/L 35-105 normal Not Available [facility] [address] [place] [address], [address], 04/20/2020 12:16:18 04/20/20 20 04/20/2020 CMP, serum or plasm a AST 26 U/L 0-32 normal Not Available [facility] [address] [place] [address], [address], 04/20/2020 12:16:18 04/20/20 20 04/20/2020 CMP, serum or plasm a ALT 21 U/L 0-33 normal Not Available [facility] [address] [place], [address], 04/20/2020 12:16:18 04/20/20 20 04/20/2020 CMP, serum or plasm a GFR 59 >= 60 abnormal Not Available [facility] [address] [place], [address], 04/20/2020 12:16:18 04/20/20 20 04/20/2020 CMP, serum [...] month s or longe r. Not Available [facility] [address] [place], [address], 04/20/2020 12:16:18 09/11/20 19 09/11/2019 US, abdom en, limit ed [facility] [address] [place] [id number] Patien t Name: GINA Carranza Patien t [...] Jason Man MD on 2018 9:51 [email or web address] [place] [address] Radiology [facility] [address] [place], [address], 09/23/2019 15:38:59 Result Notes None recorded. Procedures Surgical History Date Name Laterality Status Provider Name and Address Organization Details Recorded Time CABG completed Salma Billings [facility] 09/09/2019 09:08:09 Cholecystectomy completed Salma Billings [facility] 09/09/2019 09:08:17 [facility] 09:08:34 Back Surgery completed Salmarik Billings [facility] 09/09/2019 09:08:47 wrist repair completed Salma Billings [facility] 09/09/2019 09:09:41 debridement of leg ulcer completed Salma Billings [facility] 09/09/2019 09:10:18 Imaging Results None recorded. Procedure Notes None recorded. Medical Equipment None Reported. Allergies Allergen ID Allergen Name Allergen Category Reaction Reaction Severity Criticality Documentation Date Start Date Code Code System Note Provider Name and Address Organization Details Recorded Time 241582 Motrin medicatio n itching Not available Not available 09/09/201931309 8 [facility] 09:[facility]45 743252 Product containin g penicilli n (product) medicatio n rash Not available Not available 09/09/2019 56893 8001 SNOMED Salma Billings [facility] 9 09:01:54 Medications Name Sig Start Date Stop Date Status Note LastModified by Organization Details LastModified Time Plaquenil 200 mg tablet Take 1 tablet twice a day by oral route. active Not Available Not Available No t Available vitamin T41-bstlsqi B1 1,000 mcg-100 mg/mL injection solution Take [...] Updated DateTime 04/20/2020 98.6 [degF] Norma Salcido [facility] 0 04/20/2020 12:51:11 Date Recorded Body height Body mass index (BMI) Body weight Heart rate Oxygen saturation Oxygen saturation in Arterial blood by Pulse oximetry Systolic And Diastolic Provider Name and Address Organization Details Last Updated DateTime 0 157.48 cm 40.5 kg/m2 821434. 01 g 63 /min 97 % 97 % 130/72 mm[Hg] [facility] 0 13:02:17 Date Recorded Body weight Body mass index (BMI) Body height Heart rate Oxygen saturation Oxygen saturation in Arterial blood by Pulse oximetry Body temperature Systolic And Diastolic Provider Name and Address Organization Details Last Updated DateTime 9 045299. 08 g 41.2 kg/m2 157.48 cm 65 /min 96 % 96 % 98.9 [degF] 122/62 mm[Hg] [facility] 9 09:19:53 Date Recorded Body height Heart rate Body temperature Body mass index (BMI) Body weight Systolic And Diastolic Provider Name and Address Organization Details Last Updated DateTime 9 157.48 cm 68 /min 99.1 [degF] 41.4 kg/m2 642358. 63 g 136/66 mm[Hg] Yessi King [facility] 9 15:09:42 Social History Question Answer Notes LastModified by Organizat ion Details LastModified Time Tobacco Smoking Status Never Smoker Yessi King [facility] 09/23/2019 15:10:42 How Much Tobacco Do You Chew? None [email or web address] Information not available 09/23/2019 Live Alone Or With Others? Alone [email or web address] Information not available 09/23/2019 Exposure To Smoke No [email or web address] Information not available 09/23/2019 Marital Status [email or web address] Informatio n not available 09/23/2019 What Was The Date Of Your Most Recent Tobacco Screening? 09/23/2019 [email or web address] Information not available 09/23/2019 How Many Children Do You Have? 1 Son 23 Years Ago [email or web address] Information not available 09/23/2019 How Much Tobacco Do You Smoke? No Information not available 04/20/2020 On What Date Was Tobacco Cessation Counseling Provided? 09/23/2019 [email or web address] Information not available 09/23/2019 How Many Years Have You Smoked Tobacco? 0 Information not available 04/20/2020 Sex: Female Functional Status Question Answer Note LastModified by [email or web address] ion Details LastModified Time What is your level of alcohol consumption? None [email or web address] Information not available 09/23/2019 Do you or have you ever used smokeless tobacco? Never used smokeless tobacco [email or web address] Information not available 09/23/2019 What is your occupation? Retired [email or web address] Information not available 09/23/2019 Do you or [...] Condition Response Heart Disease Y Heart Attack ([place]) Y Arthritis Y Depression Y Gynecological HistoryNo gynecological history recorded. Obstetrics History GPAL:G 0 P 0 0 0 0 Past Encounters Encounter ID Performer Location Encounter Start Date Encounter Closed Date Diagnosis/Indication Diagnosis SNOMED-CT Code Diagnosis ICD10 Code Diagnosis Note [id number] JASON WEISS MD CARDIOLOG Y [place] [address] [place] [phone] 04/03/2017 13:10:27 04/03/2017 13:49:50 [id number] JASON WEISS MD CARDIOLOG Y [place] [address] [place] [id number] 09/25/2017 12:53:34 09/25/2017 14:36:54 [id number] JASON WEISS MD CARDIOLOG Y [address] [place],[address] [place], [place] [address] 04/02/2018 09:28:26 04/02/2018 11:01:03 [id number] JASON WEISS MD CARDIOLOG Y [address] [place],[address] [place], [place] [address] 10/22/2018 13:48:50 10/22/2018 15:10:00 [id number] JASON WEISS MD CARDIOLOG Y [place] [address] [place] [id number] 02/07/2019 11:09:23 02/07/2019 13:35:19 [id number] JASON WEISS MD CARDIOLOG Y [address] [place], [place] [address] 05/08/2019 13:19:05 05/08/2019 13:58:46 [id number] FROILAN BAGLEY MD HEM/ONC [place] [facility] [address] [place], [place] [address] 09/09/2019 08:55:56 09/09/2019 09:56:44 Rheumatoid arthritis 47491307 M06.[address] Tom. Pt is on plaquenil and cevimeline . Gout 29163056 M10.9 Pt has begun colchicine . Body mass index 30+ - obesity 115644762 Z68.41 Encourage exercise and weight loss. Leukopenia 63308603 D72. 819 Differenti al includes for this and thrombocyt openia include vitamin deficiency , Felty's syndrome as well as LGL. Also, worrisome for another autoimmune such s lupus. Medication effect including colchicine and plaquenil. We will obtain here flow cytometry, CBC, LDH, JAYDEN, splenic US, B12/folate . Thrombocyt openic disorder 509357525 D69.6 As above. [id number] FROILAN BAGLEY MD HEM/ONC [place] [facility] [address] [place], [place] [address] 09/23/2019 14:46:58 09/23/2019 15:53:02 Leukopenia 57774335 D72.819 Differenti al includes for this and [...] dilatation most likely secondary to cholecyste ctomy. [id number] JASON WEISS MD CARDIOLOG Y [address] [place] [id number] 10/24/2019 12:38:41 10/24/2019 13:57:59 [id number] FROILAN BAGLEY MD HEM/ONC [place] [address] [place] [phone] 04/20/2020 12:49:16 04/20/2020 13:27:21 Leukopenia 49232715 D72.819 Labs today are normal. This has [...] dilatation most likely secondary to cholecyste ctomy. [id number] JASON WEISS MD CARDIOLOG Y [address] [place] [id number] 05/04/2020 13:42:38 05/04/2020 14:45:16 [id number] JASON WEISS MD CARDIOLOG Y [address] [place], [place] [address] 11/23/2020 14:04:41 11/23/2020 15:54:54 [id number] JASON WEISS MD CARDIOLOG Y [address] [place] [id number] 04/22/2021 10:16:00 04/22/2021 10:42:04 [id number] YELENA GARCIA PA-C CARDIOLOG Y [address] [place] [address] 10/20/2021 13:30:08 10/20/2021 15:19:47 [id number] YELENA GARCIA PA-C CARDIOLOG Y [address] ,[address] [place] [address] 04/25/2022 13:10:58 04/25/2022 14:17:13 [id number] YLEENA GARCIA PA-C CARDIOLOG Y [address] [place] [address] 10/25/2022 13:07:16 10/25/2022 14:19:06 [id number] MIGUEL SALAZAR MD CARDIOLOG Y SB [address] [place] [address] 1 04/19/2023 08:57:28 04/19/2023 12:59:26 [id number] MIGUEL SALAZAR MD CARDIOLOG Y SB [address] [place] [address] 1 10/23/2023 13:19:59 10/23/2023 15:24:43 [id number] MIGUEL SALAZAR MD CARDIOLOG Y SB [address] [place] [address] 1 02/28/2024 14:13:45 02/28/2024 15:43:14 [id number] MIGUEL SALAZAR MD CARDIOLOG Y SB [address] [place] [address] 1 04/24/2024 13:47:52 05/02/2024 11:17:54 [id number] MIGUEL SALAZAR MD CARDIOLOG Y SB [address] [place] [address] 1 10/29/2024 12:55:01 10/29/2024 14:32:18 Health Concerns [...] OF [place] (MEDICARE SUPPLEMENT) [id number] Gina Hector [id number] Gina Hector 05/18/2025 1 [place]IC[place] (MEDICARE) Gina Hector [id number] Gina Hector 10/07/2020 2 [place] [id number] Gina Hector [id number] Gina Hector Notes Date Note Type [...] family problems, patient reportsno family problems. For spiritual/congregational, patient reportsspiritual/relig ious problems? no. For physical [...] per intake note. FROILAN BAGLEY MD [address] [place], [address], [facility] 09/09/2019 09:47:03 09/23/2019 text/html HPIReported b y PatientDistress ScreeningFor practical problems, patient reportshousing stress,financial/insur ance stress, andtransportation stress. For family problems, patient reportsfamily health issue. For emotional problems, patient reportsdepression,nerv ousness, andworry. For physical problems, patient reportsdiarrhea,eating /ingestion problem, andfatigue. For distress screening, patient reportshas the distress screening been completed in the last 45 days? yesanddistress level 3. For spiritual/congregational, patient reportsspiritual/relig ious problems? no.NutritionFor nutrition screening, [...] polyps, diverticulosis per pt. FROILAN BAGLEY MD [address] [place] [address], [phone], [facility] 09/23/2019 15:46:20 04/20/2020 text/html HPIReported b y [...] family problems, patient reportsno family problems. For spiritual/congregational, patient reportsspiritual/relig ious problems? no.NutritionFor nutrition screening, [...] care of Dr. Perez. FROILAN BAGLEY MD [address] [place] [address], [phone], [facility] 04/20/2020 13:19:58 OBGyn Episode No OBEpisode recorded.
--- OUTSIDE RECORDS SUMMARY | 2025-06-06 21:40 | XMS_ITS | Encounter Summary ---
Author Organization [employer] ([place], [place], [place], [place]) Address [address] [place] [address] Care Team Providers Care Technician Automated Equipment Name Role Phone José Miguel Verde MD Primary Care Provider + [phone] Encounter Details Date Type Department Care Team (Late st Contact Info) Description 07/15/2020 Transcribed Document [facility] Family Medicine [address] [place] [address] ProviderNitin MD [address] [place] [address] Social History Tobacco Use Types [...] CDT [facility] [place] [address] GINA HECTOR [...] appointment Where: [address] [place] [address]- Business (1) Follow Up with Follow up with primary care provider When Within 1 to 2 days Comments Take home medications as directed, follow with PCP, return to emergency Department with new or worsening symptoms Follow Up with MELVIN RASCON When Within 2 to 3 days Where: [address] [facility] [address] [place] [address]- Business (1) Allergies ibuprofen (Itching, Itching) [...] range between ( 0.0 and 7.0 ) [place] #: 0.55 K/uL -- Normal range between ( 0.16 and 1.00 ) Eos #: 0.06 x10(3)/uL -- Normal range between ( 0.00 and 0.80 ) [place] %: 9.3 % -- Normal range between [...] safe for you. General instructions ??? Take adrl-gor-pjjisej and prescription medicines only as told by [...] 10/30/2006 Document Revised: 05/02/2019 Document Reviewed: 05/02/2019 [employer] Patient Education ?? 2020 food.de. Nonspecific Chest Pain, Adult Chest pain can [...] these instructions at home: Medicines ??? Take pvvw-lgm-oolipkm and prescription medicines only as told by [...] 08/09/2006 Document Revised: 05/02/2019 Document Reviewed: 05/02/2019 [employer] Patient Education ?? 2020 [employer]. Emergency Awareness and Preventative Care STROKE [...] Assistance with quitting is available by contacting 9-737-EQXU-NOW. This is a free resource providing counseling, [...] was given the opportunity to ask questions. Patient/Acid Purifier Name: Patient/Acid Purifier Signature: Relationship to Patient: Clinician/Hospital Acid Purifier Signature: Please Provide a Telephone Number Where You Can Be Reached: Is it Permissible To Leave a Message? Date: Electronically signed by [facility], [facility] Conversion Digital Media Representative Cerner at 02/26/2023 11:06 PM CDT documented in this encounter Plan of Treatment Not on file documented as of this encounter Visit Diagnoses Not on filedocumented in this encounter Care Teams Technician Automated Equipment Relationship Specialty Start Date End Date José Miguel Verde MD [address] [place] [address] [place] [address] PCP - General Adolescent Medicine 03/07/23 documented as of this encounter
--- OUTSIDE RECORDS SUMMARY | 2025-06-06 21:41 | XMS_ITS | Encounter Summary ---
Author Organization [employer] ([place], [place], [place], [place]) Address [address] [place] [address] Care Team Providers Care Provider Relations Advocate Name Role Phone José Miguel Verde MD Primary Care Provider + [phone] Encounter Details Date Type Department Care Team (Late st Contact Info) Description 07/15/2020 Transcribed Document [facility] [place] [address] [place] [address] ProviderNitin MD [address] [place] [address] Social History Tobacco Use Types [...] Nitin ProviderMD - 07/15/2020 4:16 PM CDT [facility] [place] [address] GINA HECTOR :1945 [...] Within 2 to 3 days Where: [address] Business (1) Allergies ibuprofen (Itching, Itching) [...] range between ( 0.0 and 7.0 ) [place] #: 0.55 K/uL -- Normal range between ( 0.16 and 1.00 ) Eos #: 0.06 x10(3)/uL -- Normal range between ( 0.00 and 0.80 ) [place] %: 9.3 % -- Normal range between [...] safe for you. General instructions ??? Take mnro-qtq-iweevie and prescription medicines only as told by [...] 10/30/2006 Document Revised: 05/02/2019 Document Reviewed: 05/02/2019 [employer] Patient Education ?? 2020 [employer]. Nonspecific Chest Pain, Adult Chest pain can [...] these instructions at home: Medicines ??? Take kjlk-ieg-kjfqlxz and prescription medicines only as told by [...] 08/09/2006 Document Revised: 05/02/2019 Document Reviewed: 05/02/2019 [employer] Patient Education ?? 2020 [employer] Emergency Awareness and Preventative Care STROKE [...] Assistance with quitting is available by contacting 9-720-ABUD-NOW. This is a free resource providing counseling, [...] was given the opportunity to ask questions. Patient/Field Marketing Team Leader Name: Patient/Field Marketing Team Leader Signature: Relationship to Patient: Clinician/Hospital Field Marketing Team Leader Signature: Please Provide a Telephone Number Where You Can Be Reached: Is it Permissible To Leave a Message? Date: Electronically signed by Drew [facility] Conversion Manager Telemarketing Jessica at 02/26/2023 11:01 PM CDT documented in this encounter Plan of Treatment Not on file documented as of this encounter Visit Diagnoses Not on filedocumented in this encounter Care Teams Provider Relations Advocate Relationship Specialty Start Date End Date José Miguel Verde MD [address] [place] [address] PCP - General Adolescent Medicine 03/07/23 documented as of this encounter
--- OUTSIDE RECORDS SUMMARY | 2025-06-06 21:41 | XMS_ITS | Encounter Summary ---
Author Organization [employer] ([place], [place], [place], [place]) Address [address] [place] [address] Care Team Providers Care Funding Analyst Name Role Phone José Miguel Verde MD Primary Care Provider + [phone] Encounter Details Date Type Department Care Team (Late st Contact Info) Description 07/15/2020 Transcribed Document [facility] [place] [address] [place] [address] ProviderNitin MD [address] [place] [address] Social History Tobacco Use Types [...] Source Stated Height Entry Format [place]yl Height/Length, DANISH (ft) 5 ft Height/Length DANISH 2 Inch CLINICALHEIGHT 157.48 cm [place] Body Weight 49.73 kg Weight Source, ED Critical estimated dosing weight Weight Entry Format Ashley Weight Beninese lb 222 lb CLINICALWEIGHT 100.91 kg Body [...] Triage: ED C-SSRS: ED Clinical Reconciliation: ED manager branch: EKG: Extra Blue Tube: Extra Gold Tube: Troponin I Ultra: Troponin I Ultra: . cardiac monitor technician: Initial EKG shows normal sinus rhythm [...] % LOW Lymph # 0.97 x10(3)/uL LOW Jerome % 9.3 % HI [place] # 0.55 K/uL Eos % 1.0 % Eos # 0.06 x10(3)/uL Baso % 0.5 % Baso # 0.03 x10(3)/uL Slide Review No IG# 0.02 x10(3)/uL IG% 0.30 % . Radiology results: Radiology Results (Last 48 hours) [id number] -- 07/15/2020 11:47 CR Chest 1 Vw [...] on filedocumented in this encounter Care Teams Funding Analyst Relationship Specialty Start Date End Date José Miguel Verde MD [address] [place] [address] PCP - General Adolescent Medicine 03/07/23 documented as of this encounter
--- OUTSIDE RECORDS SUMMARY | 2025-06-06 21:41 | XMS_ITS | Encounter Summary ---
Author Organization [employer] ([place], [place], [place], [place]) Address [address] [place] [address] Care Team Providers Care Executive Receptionist Name Role Phone José Miguel Verde MD Primary Care Provider + [phone] Encounter Details Date Type Department Care Team (Late st Contact Info) Description 07/15/2020 Transcribed Document [facility] [place] [address] [place] [address] ProviderNitin MD [address] [place], [place] [id number] Social History Tobacco Use Types Packs/Day Years [...] Nitin ProviderMD - 07/15/2020 11:47 AM CDT [place] Suicide Severity Rating Scale (C-SSRS) Entered On: 07/15/2020 12:21 EDT Performed On: 07/15/2020 12:20 EDT by IVORY APPIAH RN [place] Suicide Severity Rating Scale (C-SSRS) CSSRS Past [...] on filedocumented in this encounter Care Teams Executive Receptionist Relationship Specialty Start Date End Date José Miguel Verde MD [address] [place] [address] PCP - General Adolescent Medicine 03/07/23 documented as of this encounter
--- OUTSIDE RECORDS SUMMARY | 2025-06-06 21:41 | XMS_ITS | Encounter Summary ---
Author Organization [employer] ([place], [place], [place], [place]) Address [address] [place] [address] Care Team Providers Care Oracle Database Administrator Name Role Phone José Miguel Verde MD Primary Care Provider + [phone] Encounter Details Date Type Department Care Team (Late st Contact Info) Description 07/15/2020 Transcribed Document [facility] [place] [address] [place] [address] ProviderNitin MD [address], [place] [id number] Social History Tobacco Use Types Packs/Day Years [...] 07/15/2020 16:41 EDT Electronically signed by Drew [facility] [employer] Conversion Computing Machine Operator Cerner at 02/26/2023 11:11 PM CDT documented in this encounter Plan of Treatment Not on file documented as of this encounter Visit Diagnoses Not on filedocumented in this encounter Care Teams Oracle Database Administrator Relationship Specialty Start Date End Date José Miguel Verde MD [address] [place] [address] PCP - General Adolescent Medicine 03/07/23 documented as of this encounter
--- OUTSIDE RECORDS SUMMARY | 2025-06-06 21:41 | XMS_ITS | Encounter Summary ---
Author Organization [employer] ([place], [place], [place], [place]) Address [address] [place] [address] Care Team Providers Care Director Targeted Marketing Name Role Phone José Miguel Verde MD Primary Care Provider + [phone] Encounter Details Date Type Department Care Team (Late st Contact Info) Description 07/15/2020 Transcribed Document [facility] [place] Family Medicine [address] [place] [address] ProviderNitin MD [address] [place], [place] [id number] Social History Tobacco Use Types Packs/Day Years [...] On: 07/15/2020 11:56 EDT by CARMEN PICKETT, CLAIMS ATTORNEY Triage Across the Room Chief Complaint : pt c/o CP for 2 days, hurting in left arm, sharp 10, took NTG yesterday went away, started today took NTH with xanax and now a 4/10, no NVD, Triage Date/Time : 07/15/2020 11:56 EDT CARMEN PICKETT RN - 07/15/2020 11:56 EDT DCP GENERIC CODE Tracking Acuity : 2 - Emergent Tracking Group : [facility] ED CARMEN PICKETT RN - 07/15/2020 11:56 EDT Mode of Arrival : Ambulatory Transported to ED by : Private vehicle To Room Via : Wheelchair Accompanied By : Unaccompanied ED Vital Signs : Document Height & Weight : Document ED Allergies : Document ED Reason for Visit : Document Tetanus Immunization : Unknown Rivet Passer Needed : No CARMEN PICKETT RN - [...] PNED ; Probability: 0 ; Diagnosis Code: [id number] ED Height and Weight Height Source : Stated Height Entry Format : [place] Height, Feet : 5 ft(Converted to: 152 cm, 60 Inch) Height, Inches : 2 Inch(Converted to: 0 ft 2 Inch, 5.08 cm) Clinical Height : 157.48 cm Weight Source, ED : Critical estimated dosing weight Weight Entry Format : [place] Weight, Pounds : 222 lb Clinical Dosing Weight : 100.91 kg Body Surface Area (BSA) : 2 m2 Body Mass Index : 40.7 kg/m2 (>HHI) [place] Body Weight (IBW) : 49.73 kg CARMEN [...] filedocumented in this encounter Care Teams Director Targeted Marketing Relationship Specialty Start Date End Date José Miguel Verde MD [address] [place] [address] PCP - General Adolescent Medicine 03/07/23 documented as of this encounter
--- OUTSIDE RECORDS SUMMARY | 2025-06-06 21:41 | XMS_ITS | Encounter Summary ---
Author Organization [employer] ([place], [place], [place], [place]) Address [address] [place] [address] Care Team Providers Care Public Health Microbiologist Name Role Phone José Miguel Verde MD Primary Care Provider + [phone] Encounter Details Date Type Department Care Team (Late st Contact Info) Description 07/15/[address] [facility] [place] Medicine [address] [place] [address] ProviderNitin MD [address] [place] [address] Social History Tobacco Use Types [...] on filedocumented in this encounter Care Teams Public Health Microbiologist Relationship Specialty Start Date End Date José Miguel Verde MD [address] [place] [address] PCP - General Adolescent Medicine 03/07/23 documented as of this encounter
--- OUTSIDE RECORDS SUMMARY | 2025-06-06 21:41 | XMS_ITS | Encounter Summary ---
Author Organization [employer] ([place], [place], [place], [place]) Address [address] [place] [address] Care Team Providers Care Micro Paleontologist Name Role Phone José Miguel Vedre MD Primary Care Provider + [phone] Encounter Details Date Type Department Care Team (Late st Contact Info) Description 07/15/2020 Transcribed Document [facility] [place] Family Medicine [address] [place] [address] ProviderNitin MD [address] [place], [place] [id number] Social History Tobacco Use Types Packs/Day Years [...] Communication Barrier : None Primary Language : Uruguayan Any Spiritual/Cultural Needs or Requests : No [...] - 07/15/2020 12:20 EDT Electronically signed by [facility] Conversion Residential Property Manager Cerner at 02/26/2023 11:14 PM CDT documented in this encounter Plan of Treatment Not on file documented as of this encounter Visit Diagnoses Not on filedocumented in this encounter Care Teams Micro Paleontologist Relationship Specialty Start Date End Date José Miguel Verde MD [address] [place] [address] PCP - General Adolescent Medicine 03/07/23 documented as of this encounter
[2025-06-06] MEDS: RINGERS SOLUTION,LACTATED 500 ML 999 ML IV (21:45)
[2025-06-06 21:49] LABS: Hematocrit 38.3 % (37.0-47.0); Hemoglobin 13.1 g/dL (12.2-16.2); Immature Granulocytes % 0.2 %; Mean Corpuscular HGB Conc 34.2 g/dL (31.8-35.4); Mean Corpuscular Hemoglobin 33.2 pg (27.0-31.2); Mean Corpuscular Volume 97.2 fl (81-99); Nucleated Red Blood Cells % 0 %; Platelet Count 141 K/mm3 (142-424); Red Blood Count 3.94 M/mm3 (4.20-5.40); Red Cell Distribution Width-SD 47.5 fL; White Blood Count 5.1 K/mm3 (4.8-10.8)
[2025-06-06 21:59] LABS: Albumin Level 4.4 g/dl (3.5-5.0); Chloride 101 mmol/L (98-107); Potassium 3.3 mmoL/L (3.5-5.1); Sodium 130 mmol/L (136-145)
[2025-06-06 22:02] LABS: Alanine Aminotransferase 26 U/L (12-78); Albumin/Globulin Ratio 2.0 (1.1-1.8); Alkaline Phosphatase 61 U/L (38-126); Anion Gap 10.3 mEq/L (5-15); Aspartate Amino Transferase 37 U/L (14-36); Bilirubin,Total 1.4 mg/dl (0.2-1.3); Blood Urea Nitrogen 18 mg/dl (7-17); Calcium 9.5 mg/dl (8.4-10.2); Carbon Dioxide 22 mmol/L (22.0-30.0); Creatinine Clearance Estimated 73 mL/min (50-200); Creatinine,Serum 0.90 mg/dl (0.52-1.04); Estimated Glomerular Filt Rate 61 ml/min (>60); GFR (African American) 73 ML/MIN (>60); Globulin 2.2 g/dL (1.3-3.2); Glucose 77 mg/dl (74-100); Magnesium 1.8 mg/dl (1.6-2.3); Total Protein,Serum 6.6 g/dl (6.3-8.2)
[2025-06-06 23:54] VITALS: BP 144/95; PULSE 60; RESP 16; O2SAT 99
[2025-06-06 23:58] LABS: Microscopic, Urine URINE MICROSCOPIC (MICROSCOPIC)
[2025-06-07 00:18] LABS: Bilirubin,Urine Negative (Negative); Color,Urine YELLOW (Yellow); Glucose,Urine (UA) Negative (Negative); Ketones,Urine Negative (Negative); Leukocyte Esterase,Urine 3+ (Negative); PH,Urine 6.5 (5.0-8.5); Protein,Urine Negative (Negative); Specific Gravity, Urine <= 1.005 (1.005-1.030); Urobilinogen,Urine 0.2 EU/dl (0.2)
[2025-06-07 00:37] LABS: Bacteria,Urine Trace /lpf
[2025-06-07 00:38] LABS: RBC,Urine Occasional #/hpf (0-3)
[2025-06-07 00:54] VITALS: BP 141/64; PULSE 62; RESP 16; TEMP 36.6; O2SAT 99
== END 2025-06-07 01:02 | disposition home or self-care (01) ==
PROVIDERS: Student in an Organized Health Care Education/Training Program; Emergency Provider Emergency Medicine; PCP Internal Medicine Adolescent Medicine
DX: R19.7 Diarrhea, unspecified (principal)
CPT/HCPCS: 80053; 81001; 83735; 85025; 87086; 99284; J7120

== ENCOUNTER 2025-06-30 11:21 | Outpatient (CLI) | payer MEDICARE, BC, SELFPAY ==
--- OUTSIDE RECORDS SUMMARY | 2025-06-30 11:25 | XMS_ITS | Clinical Summary ---
Author Organization [employer] ([place], [place], [place], [place]) Address [address] [place] [address] Care Team Providers Care Academic Support Specialist Name Role Phone José Miguel Verde MD Primary Care Provider + [phone] Allergies Active Allergy Reactions Criticality Noted Date [...] by mouth in the morning. Active pancrelipase, Erc-Gfar-Tfze, (CREON) 36,000-114,000 - 180,000 unit CpDR capsule [...] Date Hamilton rded Speak language other than Vincentian at home Not on file 12/01/2023 Want [...] 01/04/2018, 2016 Insurance [place]ICARE [place] [address] [address] SUPP Advance Directives For more information, please contact: [phone] * Full Code (Latest Code Status on File) Date Activated Date Inactivated Comments 03/10/2023 5:00 PM 03/11/2023 12:05 PM * Full Code Date Activated Date Inactivated Comments 03/07/2023 2:51 PM 03/10/2023 5:00 PM Care Teams Academic Support Specialist Relationship Specialty Start Date End Date José Miguel Verde MD [address] [place] [address] PCP - General Adolescent Medicine 03/07/23
--- OUTSIDE RECORDS SUMMARY | 2025-06-30 11:25 | XMS_ITS | Encounter Summary ---
Author Organization [employer] ([place], [place], [place], [place]) Address [address] [place] [address] Care Team Providers Care Scallop Binder Name Role Phone José Miguel Verde MD Primary Care Provider + [phone] Encounter Details Date Type Department Care Team (Late st Contact Info) Description 01/09/2019 Transcribed Document [facility] [place] [address] [place] [address] ProviderNitin MD [address] [id number] Social History Tobacco Use Types Packs/Day Years [...] - Historical ProviderMD - 01/09/2019 8:32 AM BLOOD BANK LABORATORY TECHNICIAN CR Chest 1 Vw Portable Ordered: 01/08/2019 Modified Reason for Exam: chest pain 01/09/2019 07:59 01/09/2019 08:32 (ЕЛЕНА LINDSEY) No further action required documented in this encounter Plan of Treatment Not on file documented as of this encounter Visit Diagnoses Not on filedocumented in this encounter Care Teams Scallop Binder Relationship Specialty Start Date End Date José Miguel Verde MD [address] [place] [address] PCP - General Adolescent Medicine 03/07/23 documented as of this encounter
--- OUTSIDE RECORDS SUMMARY | 2025-06-30 11:25 | XMS_ITS | Encounter Summary ---
Author Organization [employer] ([place], [place], [place], [place]) Address [address] [place] [address] Care Team Providers Care Fruit Receiver Name Role Phone José Miguel Verde MD Primary Care Provider + [phone] Encounter Details Date Type Department Care Team (Late st Contact Info) Description 01/08/2019 Transcribed Document [facility] [place] [address] [place] [address] ProviderNitin MD [address] [phone] Social History Tobacco Use Types Packs/Day Years [...] - Nitin ProviderMD - 01/08/2019 11:23 PM WHEELABRATOR OPERATOR ED Discharge Entered On: 01/08/2019 23:23 EST [...] 01/08/2019 23:23 EST Electronically signed by Drew, [facility] Conversion Telephone Sex Worker Cerner at 02/26/2023 11:09 PM CDT documented in this encounter Plan of Treatment Not on file documented as of this encounter Visit Diagnoses Not on filedocumented in this encounter Care Teams Fruit Receiver Relationship Specialty Start Date End Date José Miguel Verde MD [address] [place] [address] PCP - General Adolescent Medicine 03/07/23 documented as of this encounter
--- OUTSIDE RECORDS SUMMARY | 2025-06-30 11:25 | XMS_ITS | Clinical Summary ---
Author Organization [facility] Address [address] [place] [address] Care Team Providers Care District Traffic Chief [...] 1 tablet by mouth Daily. Active Pancrelipase, Bew-Neob-Xmtp, (Creon) 59065-206309 units capsule delayed-release particles capsule Take 2 [...] Care Team Description 04/04/[address] [facility] RHEUMATOLOGY [address] [address] Nichole Loya, COMMUNITY HEALTH COORDINATOR from Last 3 Months Family History Medical [...] Visit [facility] RHEUMATOLOGY [address] [address] Nichole Loya APRN [address] [address] Health Maintenance Due Date Last [...] Payer ( fective 2011-Present) Name:Gina Hector Member ID:[id number] Relation to Subscriber:Self Name:Gina Hector Subscriber ID:[id number] Payer ID:[id number] Group ID:Not on file Type:Not on file Address: [facility] [id number] [place] [id number] [facility] Care Teams District Traffic Chief Relationship Specialty Start Date End Date José Miguel Verde MD [address] [place] [address] PCP - General Adolescent Medicine 02/15/19
--- OUTSIDE RECORDS SUMMARY | 2025-06-30 11:25 | XMS_ITS | Encounter Summary ---
Author Organization [employer] ([place], [place], [place], [place]) Address [address] [place] [address] Care Team Providers Care Financial Health Counselor Name Role Phone José Miguel Verde MD Primary Care Provider + [phone] Encounter Details Date Type Department Care Team (Late st Contact Info) Description 07/15/2020 Transcribed Document [facility] [place] [address] [place] [address] ProviderNitin MD [address], [place] [id number] Social History Tobacco Use Types Packs/Day Years [...] Nitin ProviderMD - 07/15/2020 11:47 AM CDT [place] Suicide Severity Rating Scale (C-SSRS) Entered On: 07/15/2020 12:21 EDT Performed On: 07/15/2020 12:20 EDT by IVORY APPIAH RN [place] Suicide Severity Rating Scale (C-SSRS) CSSRS Past Month Wish to be : No CSSRS Past Month Suicidal Thoughts : No CSSRS Lifetime Suicide Behavior : No Suicide Severity Rating Score : 0 Suicide Severity Rating : No Additional Care Required at this time IVORY APPIAH RN - 07/15/2020 12:20 EDT Electronically signed by Sarah Russell Conversion Consulting Technical Director Cerner at 02/26/2023 11:00 PM CDT documented in this encounter Plan of Treatment Not on file documented as of this encounter Visit Diagnoses Not on filedocumented in this encounter Care Teams Financial Health Counselor Relationship Specialty Start Date End Date José Miguel Verde MD [address] [place] [address] PCP - General Adolescent Medicine 03/07/23 documented as of this encounter
--- OUTSIDE RECORDS SUMMARY | 2025-06-30 11:25 | XMS_ITS | Encounter Summary ---
Author Organization [employer] ([place], [place], [place], [place]) Address [address] [place] [address] Care Team Providers Care Technical Consultant Name Role Phone José Miguel Verde MD Primary Care Provider + [phone] Encounter Details Date Type Department Care Team (Late st Contact Info) Description 07/15/2020 Transcribed Document [facility] [place] [address] [place] [address] ProviderNitin MD [address] [place] [address] Social History Tobacco Use Types [...] Source Stated Height Entry Format [place] Height/Length, GREEK (ft) 5 ft Height/Length GREEK 2 Inch CLINICALHEIGHT 157.48 cm [place] Body Weight 49.73 kg Weight Source, ED Critical estimated dosing weight Weight Entry Format [place] Weight Setswana lb 222 lb CLINICALWEIGHT 100.91 kg Body [...] Triage: ED C-SSRS: ED Clinical Reconciliation: ED band presser: EKG: Extra Blue Tube: Extra Gold Tube: [...] Radiology results: Radiology Results (Last 48 hours) [id number] -- 07/15/2020 11:47 CR Chest 1 Vw [...] on filedocumented in this encounter Care Teams Technical Consultant Relationship Specialty Start Date End Date José Miguel Verde MD [address] [place] [address] PCP - General Adolescent Medicine 03/07/23 documented as of this encounter
--- OUTSIDE RECORDS SUMMARY | 2025-06-30 11:25 | XMS_ITS | Encounter Summary ---
Author Organization [employer] ([place], [place], [place], [place]) Address [address] [place] [address] Care Team Providers Care Claims Associate Name Role Phone José Miguel Verde MD Primary Care Provider + [phone] Encounter Details Date Type Department Care Team (Late st Contact Info) Description 01/08/[address] [facility] [place] [address] [place] [address] ProviderNitin MD [address], [place] [id number] Social History Tobacco Use Types Packs/Day Years [...] - Nitin ProviderMD - 01/08/2019 6:41 PM PICKER AND PACKER ED Assessment Entered On: 01/08/2019 19:12 EST Performed On: 01/08/2019 19:11 EST by Roc Saenz RN ED Quick Look Assessment Level of Consciousness : Alert, Awake Affect/Behavior : Appropriate, Calm Orientation : Oriented x 4 Roc Saenz RN - 01/08/2019 19:11 EST ED General-Functional Assess Information Obtained From : Patient Communication Barrier : None Primary Language : Haitian Any Spiritual/Cultural Needs or Requests : No [...] 01/08/2019 19:11 EST Electronically signed by Drew [facility] Conversion Wire Mill Rover Cerner at 02/26/2023 11:00 PM CDT documented in this encounter Plan of Treatment Not on file documented as of this encounter Visit Diagnoses Not on filedocumented in this encounter Care Teams Claims Associate Relationship Specialty Start Date End Date José Miguel Verde MD [address] [place] [address] PCP - General Adolescent Medicine 03/07/23 documented as of this encounter
--- OUTSIDE RECORDS SUMMARY | 2025-06-30 11:25 | XMS_ITS | Encounter Summary ---
Author Organization [employer] ([place], [place], [place], [place]) Address [address] [place] [address] Care Team Providers Care Time Study Engineer Name Role Phone José Miguel Verde MD Primary Care Provider + [phone] Encounter Details Date Type Department Care Team (Late st Contact Info) Description 07/15/2020 Transcribed Document [facility] [place] Family Medicine [address] [place] [address] ProviderNitin MD [address], [place] [id number] Social History Tobacco Use Types Packs/Day Years Used Date Smoking Tobacco: Never Assessed Comments Unknown Sex and Gender Information Value Date Recorded Sex Assigned at Female 05/10/2022 1:38 PM CDT Legal Sex Female 1:38 PM CDT Gender Identity Female 05/10/2022 1:38 PM CDT Sexual Orientation Not on file documented as of this encounter Miscellaneous Notes * Cerner Conversion Note - iNtin ProviderMD - 07/15/2020 11:47 AM CDT ED Triage Entered On: 07/15/2020 11:58 EDT Performed On: 07/15/2020 11:56 EDT by CARMEN PICKETT, HUNTING SALES LEADER Triage Across the Room Chief Complaint : pt c/o CP for 2 days, hurting in left arm, sharp 10, took NTG yesterday went away, started today took NTH with xanax and now a 4/10, no NVD, Triage Date/Time : 07/15/2020 11:56 EDT CARMEN PICKETT RN - 07/15/2020 11:56 EDT DCP GENERIC CODE Tracking Acuity : 2 - Emergent Tracking Group : [facility] ED CARMEN PICKETT RN - 07/15/2020 11:56 EDT Mode of Arrival : Ambulatory Transported to ED by : Private vehicle To Room Via : Wheelchair Accompanied By : Unaccompanied ED Vital Signs : Document Height & Weight : Document ED Allergies : Document ED Reason for Visit : Document Tetanus Immunization : Unknown Glass Sander Belt Needed : No ACRMEN PICKETT RN - 07/15/2020 11:56 EDT Infectious [...] PNED ; Probability: 0 ; Diagnosis Code: [id number] ED Height and Weight Height Source : Stated Height Entry Format : [place] Height, Feet : 5 ft(Converted to: 152 cm, 60 Inch) Height, Inches : 2 Inch(Converted to: 0 ft 2 Inch, 5.08 cm) Clinical Height : 157.48 cm Weight Source, ED : Critical estimated dosing weight Weight Entry Format : [place] Weight, Pounds : 222 lb Clinical Dosing Weight : 100.91 kg Body Surface Area (BSA) : 2 m2 Body Mass Index : 40.7 kg/m2 (>HHI) [place] Body Weight (IBW) : 49.73 kg CARMEN PICKETT RN - 07/15/2020 11:56 EDT Pain Assessment Pain Assessment : Initial assessment Pain Scale Used : 0-10 Scale Location : Chest CAMREN PICKETT RN - 07/15/2020 11:56 EDT Pain [...] on filedocumented in this encounter Care Teams Time Study Engineer Relationship Specialty Start Date End Date José Miguel Verde MD [address] [place] [address] PCP - General Adolescent Medicine 03/07/23 documented as of this encounter
--- OUTSIDE RECORDS SUMMARY | 2025-06-30 11:25 | XMS_ITS | Encounter Summary ---
Author Organization [employer] ([place], [place], [place], [place]) Address [address] [place] [address] Care Team Providers Care Compensation Administrator Name Role Phone José Miguel Verde MD Primary Care Provider + [phone] Encounter Details Date Type Department Care Team (Late st Contact Info) Description 01/08/2019 Transcribed Document [facility] [place] Family Medicine [address] [place] [address] ProviderNitin MD [address] [place] [address] Social History Tobacco Use Types [...] - Nitin ProviderMD - 01/08/2019 11:21 PM DEFENCE INTELLIGENCE ANALYST Electronically signed by [facility] Conversion Shake Table Operator Jessica at 02/26/2023 11:12 PM CDT documented in this encounter Plan of Treatment Not on file documented as of this encounter Visit Diagnoses Not on filedocumented in this encounter Care Teams Compensation Administrator Relationship Specialty Start Date End Date José Miguel Verde MD [address] [place] [address] PCP - General Adolescent Medicine 03/07/23 documented as of this encounter
--- OUTSIDE RECORDS SUMMARY | 2025-06-30 11:25 | XMS_ITS | Encounter Summary ---
Author Organization [employer] ([place], [place], [place], [place]) Address [address] [place] [address] Care Team Providers Care Eligibility Clerk Name Role Phone José Miguel Verde MD Primary Care Provider + [phone] Encounter Details Date Type Department Care Team (Late st Contact Info) Description 07/15/2020 Transcribed Document [facility] [place] Family Medicine [address] [place] [address] ProviderNitin MD [address] [place] [address] Social History Tobacco Use Types [...] Bueno MD - 07/15/2020 4:34 PM CDT [facility] [place] [address] GINA HECTOR :1945 [...] appointment Where: [address] [place] [address]- Business (1) Follow Up with Follow up with primary care provider When Within 1 to 2 days Comments Take home medications as directed, follow with PCP, return to emergency Department with new or worsening symptoms Follow Up with MELVIN RASCON When Within 2 to 3 days Where: [address] [facility] [address] [place] [address]- Business (1) Allergies ibuprofen (Itching, Itching) [...] range between ( 0.0 and 7.0 ) [place] #: 0.55 K/uL -- Normal range between ( 0.16 and 1.00 ) Eos #: 0.06 x10(3)/uL -- Normal range between ( 0.00 and 0.80 ) [place] %: 9.3 % -- Normal range between [...] safe for you. General instructions ??? Take qqhg-pml-mohpdqj and prescription medicines only as told by [...] 10/30/2006 Document Revised: 05/02/2019 Document Reviewed: 05/02/2019 [employer] Patient Education ?? 2020 XSI Semi Conductors. Nonspecific Chest Pain, Adult Chest pain can [...] these instructions at home: Medicines ??? Take rowm-xxz-zkttrgs and prescription medicines only as told by [...] 08/09/2006 Document Revised: 05/02/2019 Document Reviewed: 05/02/2019 [employer] Patient Education ?? 2020 [employer] Inc. Emergency Awareness and Preventative Care STROKE [...] Assistance with quitting is available by contacting 3-001-DANE-NOW. This is a free resource providing counseling, [...] was given the opportunity to ask questions. Patient/Notching Machine Operator Name: Patient/Notching Machine Operator Signature: Relationship to Patient: Clinician/Hospital Notching Machine Operator Signature: Please Provide a Telephone Number Where You Can Be Reached: Is it Permissible To Leave a Message? Date: Electronically signed by [facility] Conversion Revit Drafter Cerner at 02/26/2023 11:06 PM CDT documented in this encounter Plan of Treatment Not on file documented as of this encounter Visit Diagnoses Not on filedocumented in this encounter Care Teams Eligibility Clerk Relationship Specialty Start Date End Date José Miguel Verde MD [address] [place] [address] PCP - General Adolescent Medicine 03/07/23 documented as of this encounter
--- OUTSIDE RECORDS SUMMARY | 2025-06-30 11:25 | XMS_ITS | Encounter Summary ---
Author Organization [employer] ([place], [place], [place], [place]) Address [address] [place] [address] Care Team Providers Care Silk Trimmer Name Role Phone José Miguel Verde MD Primary Care Provider + [phone] Encounter Details Date Type Department Care Team (Late st Contact Info) Description 07/15/2020 Transcribed Document [facility] [place] [address] [place] [address] ProviderNitin MD [address] [place], [place] [id number] Social History Tobacco Use Types Packs/Day Years [...] Communication Barrier : None Primary Language : Khmer Any Spiritual/Cultural Needs or Requests : No [...] - 07/15/2020 12:20 EDT Electronically signed by [facility] Conversion Asphalt Blender Cerner at 02/26/2023 11:14 PM CDT documented in this encounter Plan of Treatment Not on file documented as of this encounter Visit Diagnoses Not on filedocumented in this encounter Care Teams Silk Trimmer Relationship Specialty Start Date End Date José Miguel Verde MD [address] [place] [address] PCP - General Adolescent Medicine 03/07/23 documented as of this encounter
--- OUTSIDE RECORDS SUMMARY | 2025-06-30 11:25 | XMS_ITS | Encounter Summary ---
Author Organization [employer] ([place], [place], [place], [place]) Address [address] [place] [address] Care Team Providers Care Agricultural Labor Camp Manager Name Role Phone José Miguel Verde MD Primary Care Provider + [phone] Encounter Details Date Type Department Care Team (Late st Contact Info) Description 01/08/2019 Transcribed Document [facility] [place] Family Medicine [address] [place] [address] ProviderNitin MD [address], [place] [id number] Social History Tobacco Use Types Packs/Day Years [...] - Nitin ProviderMD - 01/08/2019 7:04 PM VALET SERVICE ATTENDANT Patient: GINA HECTOR Age: 73 years Sex: [...] noted. Histroy of triple bypass. Dr. preciado precision farming coordinator. . History of Present Illness The patient [...] EST Height Source Stated Height Entry Format [place] Height/Length, SAMI (ft) 5 ft Height/Length SAMI 2 Inch CLINICALHEIGHT 157.48 cm Gary Body Weight 49.73 kg Weight Source, ED Critical estimated dosing weight Weight Entry Format [place] Weight [place] lb 230 lb CLINICALWEIGHT 104.55 kg Body [...] 18.0 % LOW Lymph # 1.04 x10(3)/uL [place] % 9.2 % HI [place] # 0.53 K/uL Eos % 0.5 % [...] appointment with her primary care doctor and precision farming coordinator for discussion of recent ER visits. Patient [...] following educational materials: Gastroesophageal Reflux Disease, Adult, Jzpv-jx-Tuhz, Food Choices for Gastroesophageal Reflux Disease, Adult, Mfyo-wm-Bett, Nonspecific Chest Pain, Rgst-qm-Juwe. Follow up with: [facility] Within 2 to 3 days For further assistance with your Primary Care Physician please contact the Patient Resource Center at [phone]. Please follow up with Lester Peace.; MELVIN [...] on filedocumented in this encounter Care Teams Agricultural Labor Camp Manager Relationship Specialty Start Date End Date José Miguel Verde MD [address] [place] [address] PCP - General Adolescent Medicine 03/07/23 documented as of this encounter
--- OUTSIDE RECORDS SUMMARY | 2025-06-30 11:25 | XMS_ITS | Encounter Summary ---
Author Organization [employer] ([place], [place], [place], [place]) Address [address] [place] [address] Care Team Providers Care Endoscopy Nurse Name Role Phone José Miguel Verde MD Primary Care Provider + [phone] Encounter Details Date Type Department Care Team (Late st Contact Info) Description 07/15/2020 Transcribed Document [facility] [place] Family Medicine [address] [place] [address] ProviderNitin MD [address] [place] [address] Social History Tobacco Use Types [...] 07/15/2020 4:17 PM CDT Electronically signed by [facility] Conversion Biochemistry Professor Jessica at 02/26/2023 10:51 PM CDT documented in this encounter Plan of Treatment Not on file documented as of this encounter Visit Diagnoses Not on filedocumented in this encounter Care Teams Endoscopy Nurse Relationship Specialty Start Date End Date José Miguel Verde MD [address] [place] [address] PCP - General Adolescent Medicine 03/07/23 documented as of this encounter
--- OUTSIDE RECORDS SUMMARY | 2025-06-30 11:25 | XMS_ITS | Encounter Summary ---
Author Organization [employer] ([place], [place], [place], [place]) Address [address] [place] [address] Care Team Providers Care Worship Leader Name Role Phone José Miguel Verde MD Primary Care Provider + [phone] Encounter Details Date Type Department Care Team (Late st Contact Info) Description 01/08/2019 Transcribed Document [facility] [place] [address] [place] [address] ProviderNitin MD [address], [place] [id number] Social History Tobacco Use Types Packs/Day Years [...] - Nitin ProviderMD - 01/08/2019 6:41 PM DRESSING MACHINE OPERATOR ED Triage Entered On: 01/08/2019 18:57 EST Performed On: 01/08/2019 18:47 EST by Catherine Pugh, PHYSICIST SOLID STATE Triage Across the Room Triage Date/Time : 01/08/2019 18:47 EST Chief Complaint : Pt presents to the ER with chest pain that started Monday. Pain was left sided that radiates across chest. Burning in nature. Slight nausea noted. Histroy of triple bypass. Dr. preciado handicapper harness racing. Catherine Pugh, RN - 01/08/2019 18:47 EST DCP GENERIC CODE Tracking Acuity : 3 - Urgent Tracking Group : [facility] ED Catherine Pugh RN - 01/08/2019 [...] PNED ; Probability: 0 ; Diagnosis Code: [id number] ED Height and Weight Height Source : Stated Height Entry Format : [place] Height, Feet : 5 ft(Converted to: 152 cm, 60 Inch) Height, Inches : 2 Inch(Converted to: 0 ft 2 Inch, 5.08 cm) Clinical Height : 157.48 cm Weight Source, ED : Critical estimated dosing weight Weight Entry Format : [place] Weight, Pounds : 230 lb Clinical Dosing Weight : 104.55 kg Body Surface Area (BSA) : 2.03 m2 Body Mass Index : 42.2 kg/m2 (>HHI) [place] Body Weight (IBW) : 49.73 kg Catherine Pugh RN - 01/08/2019 18:47 EST Electronically signed by Drew [facility] Conversion Service Vehicle Operator Cerner at 02/26/2023 11:09 PM CDT documented in this encounter Plan of Treatment Not on file documented as of this encounter Visit Diagnoses Not on filedocumented in this encounter Care Teams Worship Leader Relationship Specialty Start Date End Date José Miguel Verde MD [address] [place] [address] PCP - General Adolescent Medicine 03/07/23 documented as of this encounter
--- OUTSIDE RECORDS SUMMARY | 2025-06-30 11:25 | XMS_ITS | Encounter Summary ---
Author Organization [employer] ([place], [place], [place], [place]) Address [address] [place] [address] Care Team Providers Care Mainframe Applications Developer Name Role Phone José Miguel Verde MD Primary Care Provider + [phone] Encounter Details Date Type Department Care Team (Late st Contact Info) Description 07/15/2020 Transcribed Document [facility] [place] [address] [place] [address] ProviderNitin MD [address] [place] [address] Social History Tobacco Use [...] on filedocumented in this encounter Care Teams Mainframe Applications Developer Relationship Specialty Start Date End Date José Miguel Verde MD [address] [place] [address] PCP - General Adolescent Medicine 03/07/23 documented as of this encounter
--- OUTSIDE RECORDS SUMMARY | 2025-06-30 11:25 | XMS_ITS | Referral Summary ---
Author Organization [employer] ([place], [place], [place], [place]) Address [address] [place] [address] Care Team Providers Care Insurance Sales Professional Name Role Phone José Miguel Verde MD Primary Care Provider + [phone] Allergies Active Allergy Reactions Criticality Noted Date [...] by mouth in the morning. Active pancrelipase, Fgl-Zjiu-Tjks, (CREON) 36,000-114,000 - 180,000 unit CpDR capsule [...] Date [place] rded Speak language other than Egyptian at home Not on file 12/01/2023 Want [...] Advance Directives For more information, please contact: [phone] * Full Code (Latest Code Status on File) Date Activated Date Inactivated Comments 03/10/2023 5:00 PM 03/11/2023 12:05 PM * Full Code Date Activated Date Inactivated Comments 03/07/2023 2:51 PM 03/10/2023 5:00 PM Care Teams Insurance Sales Professional Relationship Specialty Start Date End Date José Miguel Verde MD [address] [place] [address] PCP - General Adolescent Medicine 03/07/23
--- OUTSIDE RECORDS SUMMARY | 2025-06-30 11:25 | XMS_ITS | Encounter Summary ---
Author Organization [employer] ([place], [place], [place], [place]) Address [address] [place] [address] Care Team Providers Care Child And Family Services Specialist Name Role Phone José Miguel Verde MD Primary Care Provider + [phone] Encounter Details Date Type Department Care Team (Late st Contact Info) Description 01/08/2019 Transcribed Document [facility] [place] [address] [place] [address] ProviderNitin MD [address] [place] [address] Social History Tobacco Use Types [...] Nitin Bueno MD - 01/08/2019 11:24 PM TRACTOR MECHANIC APPRENTICE [address] [place] [address] Patient Information Name: GINA HECTOR Age: [...] please contact the Patient Resource Center at [phone]. Please follow up with Lester Peace. With: Address: When: MELVIN RASCON [address] [place] [address], [address] [place] [phone] Business (1) Within 2 to 3 days [...] you start to feel better. ??? Take blmh-iwd-znhfmkj and prescription medicines only as told by [...] 04/17/2009 Document Revised: 07/24/2017 Document Reviewed: 07/24/2017 [employer] Interactive Patient Education ? 2017 Experience, Inc. Inc. Food Choices for Gastroesophageal Reflux Disease, [...] VegetablesTomatoes. Tomato juice. Tomato and spaghetti sauce. [place] peppers. Onion and garlic. Horseradish. FruitsOranges, grapefruit, [...] spearmint. Fats and OilsHigh-fat foods. This includes Latvian fries and potato chips. OtherVinegar. Strong spices. [...] 04/30/2013 Document Revised: 04/06/2017 Document Reviewed: 09/03/2014 Experience[employer] Inc. Interactive Patient Education ? 2017 Experience, Inc. Inc. Gastroesophageal Reflux Disease, Adult Introduction Normally, [...] vinegar, hot sauces, and BBQ sauce. ? [place] fruit juices and citrus fruits, such as oranges, olga, and limes. ? Tomato-based foods, such as red sauce, chili, salsa, and pizza with red sauce. ? Fried and fatty foods, such as donuts, azeri fries, potato chips, and high-fat dressings. ? [...] any changes in your symptoms. ??? Take mxaj-riv-dazhkcr and prescription medicines only as told by [...] range between ( 0.0 and 7.0 ) [place] #: 0.53 K/uL -- Normal range between ( 0.16 and 1.00 ) Eos #: 0.03 x10(3)/uL -- Normal range between ( 0.00 and 0.80 ) [place] %: 9.2 % -- Normal range between [...] verify that HECTORGINA Carranza was seen at [facility] Emergency Department on ,01/08/2019 23:24:10. [...] along the way. As a healthcare provider, [facility] recommends that you stop smoking. Assistance with quitting is available by contacting 8-492-UGHI-NOW. This is a free resource providing counseling, [...] Electronic Communications Privacy Act 18 U.S.C. ???Sections 2695-2351,?? and contain information intended for the specified [...] sign up for the My [facility] patient portal, which gives you 05/06 access to your medical information ??? including these discharge instructions ??? using your computer, smartphone, or tablet. Just go to [employer] to get started. Questions? Call . Acknowledgment [...] Instructions: Emergency Physician: Electronically signed by Drew, [facility] Conversion Supervisory Training Specialist Cerner at 02/26/2023 11:12 PM CDT documented in this encounter Plan of Treatment Not on file documented as of this encounter Visit Diagnoses Not on filedocumented in this encounter Care Teams Child And Family Services Specialist Relationship Specialty Start Date End Date José Miguel Verde MD [address] [place] [address] PCP - General Adolescent Medicine 03/07/23 documented as of this encounter
--- OUTSIDE RECORDS SUMMARY | 2025-06-30 11:25 | XMS_ITS | Encounter Summary ---
Author Organization [employer] ([place], [place], [place], [place]) Address [address] [place] [address] Care Team Providers Care Erp Project Manager Name Role Phone José Miguel Verde MD Primary Care Provider + [phone] Encounter Details Date Type Department Care Team (Late st Contact Info) Description 07/15/2020 Transcribed Document [facility] [place] [address] [place] [address] ProviderNitin MD [address] [place] [address] Social History Tobacco Use Types [...] Nitin ProviderMD - 07/15/2020 4:16 PM CD[address] [facility] [address] GINA HECTOR :1945 Visit Time:07/15/2020 Your [...] Within 2 to 3 days Where: [address] Business (1) Allergies ibuprofen (Itching, Itching) [...] range between ( 0.0 and 7.0 ) [place] #: 0.55 K/uL -- Normal range between ( 0.16 and 1.00 ) Eos #: 0.06 x10(3)/uL -- Normal range between ( 0.00 and 0.80 ) [place] %: 9.3 % -- Normal range between [...] safe for you. General instructions ??? Take hpda-zjd-ldxyqfd and prescription medicines only as told by [...] 10/30/2006 Document Revised: 05/02/2019 Document Reviewed: 05/02/2019 7-bites Patient Education ?? 2020 Explore Engage. Nonspecific Chest Pain, Adult Chest pain can [...] these instructions at home: Medicines ??? Take lkcp-wge-arythmh and prescription medicines only as told by [...] 08/09/2006 Document Revised: 05/02/2019 Document Reviewed: 05/02/2019 7-bites Patient Education ?? 2020 7[employer]es Inc. Emergency Awareness and Preventative Care STROKE [...] Assistance with quitting is available by contacting 6-795-GNAG-NOW. This is a free resource providing counseling, [...] was given the opportunity to ask questions. Patient/Green Building Design Specialist Name: Patient/Green Building Design Specialist Signature: Relationship to Patient: Clinician/Hospital Green Building Design Specialist Signature: Please Provide a Telephone Number Where You Can Be Reached: Is it Permissible To Leave a Message? Date: Electronically signed by Drew [facility] Conversion Circuitry Negative Inspector Jessica at 02/26/2023 11:01 PM CDT documented in this encounter Plan of Treatment Not on file documented as of this encounter Visit Diagnoses Not on filedocumented in this encounter Care Teams Erp Project Manager Relationship Specialty Start Date End Date José Miguel Verde MD [address] [place] [address] PCP - General Adolescent Medicine 03/07/23 documented as of this encounter
--- OUTSIDE RECORDS SUMMARY | 2025-06-30 11:25 | XMS_ITS | Encounter Summary ---
Author Organization [employer] ([place], [place], [place], [place]) Address [address] [place] [address] Care Team Providers Care Prepress Manager Name Role Phone José Miguel Verde MD Primary Care Provider + [phone] Encounter Details Date Type Department Care Team (Late st Contact Info) Description 07/15/2020 Transcribed Document [facility] [place] [address] [place] [address] ProviderNitin MD [address], [place] [phone] Social History Tobacco Use Types Packs/Day Years [...] 07/15/2020 16:41 EDT Electronically signed by [facility] Conversion Gizzard Peeler Cerner at 02/26/2023 11:11 PM CDT documented in this encounter Plan of Treatment Not on file documented as of this encounter Visit Diagnoses Not on filedocumented in this encounter Care Teams Prepress Manager Relationship Specialty Start Date End Date José Miguel Verde MD [address] [place] [address] PCP - General Adolescent Medicine 03/07/23 documented as of this encounter
--- OUTSIDE RECORDS SUMMARY | 2025-06-30 11:25 | XMS_ITS | Encounter Summary ---
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 [address] [place] [address] PERSON INFORMATION Name GINA HECTOR Age 73 Years 1945 Sex Female Language Urdu PCP MELVIN RASCON MD-INT Marital Status Med Service Emergency Medicine Acct# Arrival 01/08/2019 18:41:00 Visit Reason Chest pain; CHEST PAIN/LEFT ARM PAIN Acuity 3 - Urgent LOS 000 04:43 Depart Date: 01/08/19 11:24 PM Address: [address] [facility] [address] [facility] [place] [address] Comment: PROVIDER INFORMATION Provider Role Assigned Unassigned BEAR KING ARNP ED Physician 01/08/2019 18:50:05 Roc Saenz, EVP STRATEGY Nurse 01/08/2019 18:59:17 KEYUR BROWN MD ED [...] PATIENT EDUCATION INFORMATION Instructions: Nonspecific Chest Pain, Wekn-ms-Acnf; Food Choices for Gastroesophageal Reflux Disease, Adult, Ebxs-ug-[id number]; Gastroesophageal Reflux Disease, Adult, Zobb-mz-[id number] Follow up: With: Address: When: Return to Emergency Department Within As needed Comments: Follow-up as instructed Return if condition worsens With: Address: When: [facility] Within 2 to 3 days Comments: For further assistance with your Primary Care Physician please contact the Patient Resource Center at [phone]. Please follow up with Lester Peace. With: Address: When: MELVIN RASCON [address] [facility], [address] [place] [phone] Business (1) Within 2 to 3 days Comment: documented in this encounter Plan of Treatment Not on file documented as of this encounter Visit Diagnoses Not on filedocumented in this encounter Care Teams Jinriksha Driver Relationship Specialty Start Date End Date José Miguel Verde MD [address] [place] [address] PCP - General Adolescent Medicine 03/07/23 documented as of this encounter
[2025-07-01 21:37] LABS: C difficile Toxins AB, EIA Negative (Negative)
== END 2025-06-30 23:59 | disposition home or self-care (01) ==
PROVIDERS: PCP Internal Medicine Adolescent Medicine; Visit Provider Internal Medicine Gastroenterology
DX: R15.0 Incomplete defecation (principal); R53.1 Weakness; R19.7 Diarrhea, unspecified
CPT/HCPCS: 87324

== ENCOUNTER 2025-09-12 10:41 | Emergency (ER) | payer MEDICARE, BC, SELFPAY ==
[2025-09-12 10:41] VITALS: BP 116/54; PULSE 63; RESP 20; TEMP 36.6; O2SAT 98; BMI 33.2
--- NOTE | 2025-09-12 10:46 | ECG_ITS ---
APPROVED REPORT Exam: Resting ECG HR:60 bpm ECG Measurements Heart Rate 60 AXES IN 140 P 66 QRSd 104 QRS 59 QT 459 T 206 QTc 459 Conclusion SINUS RHYTHM POSSIBLE RIGHT VENTRICULAR CONDUCTION DELAY [RSR (QR) IN V1/V2] MODERATE T-WAVE ABNORMALITY, CONSIDER ANTEROLATERAL ISCHEMIA [-0.1+ mV T-WAVE IN V3-V6] ABNORMAL ECG UNCONFIRMED REPORT Normal sinus rhythm. Biphasic T waves in V2. T wave inversions in leads I, 2, 3, aVF, V3, V4, V5, V6 but no ST elevation or depression. Unchanged from previous EKG Electronically signed by : KEMAR JUARES, 09/12/2025 13:50:48
--- OUTSIDE RECORDS SUMMARY | 2025-09-12 10:48 | XMS_ITS | Continuity of Care Document ---
Author Organization [facility] CARDIOLOGY [facility] Address [address] [place] [address] Care Team Providers Care Buggy Ladle Tender Name Role Phone MIGDALIA KHANNA Primary Care Provider MIGUEL SALAZAR Share Holder Assessment Encounter Date Assessment Date Assessment LastModified by Organization Details LastModified Time 07/23/2025 07/23/2025 Ms. Hector is a very pleasant, 80 y.o. patient with a h/o CAD, h/o CABG, hypertension, rheumatoid arthritis, GERD, osteoporosis who was last seen in the office on 10/29/2024. Since her last visit with me in the office, patient was hospitalized for several days at [facility] ([place], [place]) in early May 2025. Ultimately, she underwent coronary angiography with PCI (SREEDHAR to SVG-OM) on May 14, 2025. Overall, she has felt better since then. Additionally, she has been dealing with high levels of anxiety. With medication, this has begun to improve. Patient returns to the clinic today for a scheduled follow-up visit. RTC: 3 months for clinical reassessment [email or web address] Not available 07/25/2025 15:31:18 Plan of Treatment Reminders Order Date Submit Date Provider Last Modified By Organization Details Last Modified Time Details Appointments RECHECK 2024 02:00P M MIGUEL SALAZAR MD Not available Not available Not available Lab None recorded . Referral None recorded . Procedures None recorded . Surgeries None recorded . Imaging None recorded . Medication Orders None recorded . Patient TargetsNo targets recorded. Patient Instructions Encounter Date Encounter Id Patient Instructions Last Modified By Organization Details Last Modified Time 07/23/2025 [id number] body mass index: care instructions Not available 07/23/2025 16:45:51 high blood pressure: care instructions Not available 07/23/2025 16:45:51 Reason for Referral None Reported. Problems Name Problem SNOMED Code Status Onset Date Resolution Date Notes Provider Name and Address Organization Details Recorded Time Coronary arteriosc lerosis in [place] artery 112827184022 7 Active 2014 From Automated Load;Prov ider: Yemi Amado;Stat us: Active Drea Regan [facility] 0 15:08:54 Hyperlipi demia 54691529 Active 2014 From Automated Load;Prov ider: Yemi Amado;Stat us: Active Drea Regan [facility] 0 15:08:54 Problem Notes None recorded. Procedures Surgical History Date Name Laterality Status Provider Name and Address Organization Details Recorded Time 04/24/20 24 EKG completed MIGUEL SALAZAR MD [address] [place] [address], [phone], [facility] 04/26/2024 11:09:13 10/23/20 23 EKG completed MIGUEL SALAZAR MD [address] [place] [address], [phone], [facility] 10/23/2023 14:45:41 10/25/20 22 EKG completed YELENA GARCIA PA-C [address] [place], [address], [facility] 10/25/2022 14:05:38 04/25/20 22 EKG completed YELENA GARCIA PA-C [address] [place], [address], [facility] 04/25/2022 14:01:56 10/20/20 21 EKG completed YELENA GARCIA PA-C [address] [place], [address], [facility] 10/20/2021 14:58:02 10/12/20 10 Cardiac Catheterization completed Leidy Ryder [facility] 03/29/2017 15:44:16 09/13/20 02 Cardiac Surgery completed [facility] 03/29/2017 15:43:45 Other completed [facility] 03/29/2017 15:43:14 Cholecystectomy completed [facility] 03/29/2017 15:43:26 Other completed [facility] 03/29/2017 15:44:26 Other completed [facility] 03/29/2017 15:44:34 Other completed [facility] 03/29/2017 15:44:42 Other completed [facility] 03/29/2017 15:44:50 Imaging Results None recorded. Procedure Notes None recorded. Medical Equipment None Reported. Allergies Allergen ID Allergen Name Allergen Category Reaction Reaction Severity Criticality Documentation Date Start Date Code Code System Note Provider Name and Address Organization Details Recorded Time 841278 Motrin medicatio n itching Not available Not available 10/06/20162009 73592 8 RxNorm React ion: ITCHI NG; Comme nt: Creat ed By: Marge rivas Date: 08/31 3:29: 43 PM; Not Available [facility] 6 14:10:00 511998 Product containin g penicilli n (product) medicatio n rash Not available Not available 10/07/20162009 72978 8001 SNOMED React ion: RASH; Comme nt: Creat ed By: Marge smith d Date: 08/31 3:29: 20 PM; Not Available [facility] 6 03:51:38 Medications Name Sig [...] completed Not Available Not Available Not Available isosorbid e mononitra te ER 30 mg tablet,ex tended release 24 hr Take 1 tablet every day by oral route. active Not Available Not Available No t Available alendrona te 70 mg tablet Every week 04/22 completed Frequenc y: Every week;Alt Frequenc y: as direct.; Medicati on Descript ion: alendron ate; Dosage:1 ; Route:or al; refills: 0; Quantity :4 tablet Not Available Not Available Not Available Plavix 75 mg tablet Take 1 tablet every day by oral route. active Not Available Not Available No t Available Lipitor 20 mg tablet Take 1 tablet every day by oral route. active Not Available Not Available No t Available Macrobid 100 mg capsule Take 1 capsule every 12 hours by oral route. active Not Available Not Available No t Available FiberCon 625 mg tablet Daily active [...] Not Available Not Available Not Avai lable sertralin e 25 mg tablet Take 2 tablets every day by oral route. active Not Available Not Available No t Available aspirin 81 mg tablet Daily active Duration [...] 10 mg tablet Every night at bedtime 07/23 completed Frequenc y: qhs;Medi cation Descript ion: atorvast [...] Not Available Vitals Date Recorded Body height Heart rate Oxygen saturation Oxygen saturation in Arterial blood by Pulse oximetry Body mass index (BMI) Body weight Systolic And Diastolic Provider Name and Address Organization Details Last Updated DateTime 5 162.56 cm 60 /min 96 % 96 % 29.5 kg/m2 86612.8 9 g 110/62 mm[Hg] [facility] 5 15:56:55 Social History Question Answer Notes LastModified by [employer] ion Details LastModified Time Tobacco Smoking Status Never Smoker Leidy Ryder [facility] 03/29/2017 15:41:57 How Much Tobacco Do You Chew? None Information not available 11/23/2020 Marital Status Informatio n not available 03/29/2017 What Was The Date Of Your Most Recent Tobacco Screening? 10/29/2024 Information not available 10/29/2024 How Many Children Do You Have? 1 Information not available 03/29/2017 What Is Your Relationship Status? [email or web address] Information not available 10/23/2023 How Much Tobacco Do You Smoke? No Information not available 11/23/2020 Has Tobacco Cessation Counseling Been Provided? No Information not available 02/28/2024 Have You Recently Traveled Abroad? No [email or web address] Information not available 10/20/2021 Sex: Female Functional Status Question Answer Note LastModified by Organizat ion Details LastModified Time Do you or have you ever used any other forms of tobacco or nicotine? No Information not available 02/28/2024 Do you or have you ever used smokeless tobacco? Never used smokeless tobacco [email or web address] Information not available 10/24/2019 Are you currently employed? 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 Information not available [...] Edema Y Chest Pain Y Heart Attack (NE) Y Ulcers N Diabetes N Rheumatic Fever [...] e and Address Organization Details Recorded Time Influenza, split virus, quadrivalent, preservative 7 completed Not Available [facility] 07/23/2025 15:27:14 pneumococcal polysaccharide PPV23 7 completed Not Available [facility] 07/23/2025 15:27:14 Pneumococcal conjugate PCV 13 8 completed Not Available [facility] 07/23/2025 15:27:14 COVID-19, mRNA, LNP-S, PF, 100 mcg/0.5mL dose or 50 mcg/0.25mL dose 2 completed Not Available [facility] 07/23/2025 15:27:14 Influenza, high-dose, trivalent, PF 3 completed Not Available [facility] 07/23/2025 15:27:14 Influenza, high-dose, trivalent, PF 4 completed Not Available [facility] 07/23/2025 15:27:14 COVID-19, mRNA, LNP-S, PF, 100 mcg/0.5mL dose or 50 mcg/0.25mL dose 1 completed Emily Malloy [facility] 10/20/2021 14:10:21 COVID-19, mRNA, LNP-S, PF, 100 mcg/0.5mL dose or 50 mcg/0.25mL dose 1 completed Emily Malloy [facility] 10/20/2021 14:10:37 COVID-19, mRNA, LNP-S, PF, 100 mcg/0.5mL dose or 50 mcg/0.25mL dose [facility] 10/20/2021 14:10:54 Past Encounters Encounter ID Performer Location Encounter Start Date Encounter Closed Date Diagnosis/Indication Diagnosis SNOMED-CT Code Diagnosis ICD10 Code Diagnosis IMO Codes Diagnosis Note [id number] MIGUEL SALAZAR MD CARDIOLOG Y [address] [place] [address] 07/23/2025 15:25:48 08/01/2025 01:15:53 Coronary atherosclerosis 495277456 I25.10 patient with history of CAD, history of CABG-see HPI for detail; no new symptoms reported; exam is relatively unchanged from previous visit; continue with current medication s -enteric-c oated aspirin 81 mg p.o. daily, Plavix 75 mg po qd, atenolol 50 mg 1 p.o. nightly, colestipol 1 g tablet p.o. twice daily. EKG (10/23/23) - sinus bradycardi a, rate= 58, normal axis, QTc= 399 ms, likely old inferior NE, inverted T waves noted in the inferior and anterolate ral leads. EKG (04/26/24) - sinus bradycardi a with PACs, rate=58, normal axis, likely old inferior NE, T wave inversions (V4-V6) - mentioned on 02/03 EKG report. Cardiac exam today was benign. She is s/p PCI (SREEDHAR to SVG-OM) on 05/14/25. This occurred while she was an inpatient at [facility]. No new recommenda tions at this time Essential hypertension 71589428 I10 BP today was = 110/62 mmHg, HR=60 bpm; continue with current med. - Atenolol 50 mg p.o. nightly. We had lengthy discussion about her blood pressure. She is concerned that continued use of isosorbide 30 mg p.o. daily may significan tly reduce her blood pressure. As long as she is not experienci ng frequent chest pain, this medication is not absolutely necessary and can be stopped. The patient is recommende d to check BPs at home periodical ly & bring BP log to next visit. A low sodium (< 2000 mg/day) diet is also recommende d. Palpitations 57893272 R0 0.2 The etiology of the patient's [...] goal of reducing palpitatio n burden. Obesity 314181579 E66.9 patient's BMI today was = 29.5; recommend weight loss for beneficial effects on health. Gastroesop hageal reflux disease 881275894 K21.9 Patient reports that her chest discomfort has gone away with use of new medication vs. GERD. In retrospect , she thinks many of her chest pain episodes have been due to GERD. Health Concerns Section Related Observation LastModified by Organization Detai ls LastModified Time None Recorded Concern Status LastModified by Organization Details LastModified Time None Recorded Payers Encounter Date Sequence Insurance Name Policy Number Policy Gaines Covered Member ID Gaines Member ID Guarantor Name 07/23/2025 1 [place] Gina Hector [id number] Gina Hector 07/23/2025 2 [place] [id number] Gina Hector [id number] Gina Hector Notes Date Note Type Note Provider Name and Address Organization Details Recorded Time 07/23/2025 text/html ROS as noted in the HPI Ms. Hector is a very pleasant, 80 y.o. patient with a h/o CAD, h/o CABG, hypertension, rheumatoid arthritis, GERD, osteoporosis who was last seen in the office on 10/29/2024. Since her last visit with me in the office, patient was hospitalized for several days at [facility] ([place], [place]) in early May 2025. Ultimately, she underwent coronary angiography with PCI (SREEDHAR to SVG-OM) on May 14, 2025. Overall, she has felt better since then. Additionally, she has been dealing with high levels of anxiety. With medication, this has begun to improve. Patient returns to the clinic today for a scheduled follow-up visit. MIGUEL SALAZAR MD [facility] [place], [address], [place] [facility] 07/25/2025 15:32:21 OBGyn Episode No OBEpisode recorded.
--- NOTE | 2025-09-12 10:49 | XR_ITS ---
FINAL REPORT CLINICAL HISTORY: chest pain this morning, pt is in no active pain currently, denies any soa or dizziness. hx of coronary artery disease & hypertension COMPARISON: 06/05/2025 FINDINGS: SINGLE VIEW CHEST There is mild cardiomegaly. Patient is status post median sternotomy. The lungs are clear. There is no pneumothorax. IMPRESSION: No acute process. Reviewed, Interpreted and Dictated by Chapin Maxwell MD Transcribed by Zoe Zhao Authenticated and [facility]
--- NOTE | 2025-09-12 10:49 | [facility].EDCP ---
Discharge Plan Disposition Patient Disposition: Home, Self-Care Prescriptions Prescriptions: No Action Gemtesa 75 mg tablet 75 mg PO DAILY cholecalciferol (vitamin D3) 125 mcg (5,000 unit) capsule 125 mcg PO DAILY Voquezna 20 mg tablet 20 mg PO DAILY Qty: 90 3RF sertraline [Zoloft] 50 mg tablet 50 mg PO DAILY Qty: 30 2RF cyanocobalamin (vitamin B-12) 1,000 mcg/mL solution 1,000 mcg IM MONTHLY alprazolam 0.25 MG tablet 0.25 mg PO TIDP PRN (Reason: Anxiety) cevimeline 30 MG capsule 30 mg PO TID hydroxychloroquine 200 MG tablet 200 mg PO DAILY Patient Comments: 1 a day. 2 the next day colchicine 0.6 MG tablet 0.6 mg PO DAILY scopolamine base 1 mg over 3 days patch 3 day 1 patch transdermal Q3D PRN (Reason: nausea and vomiting) Qty: 10 1RF aspirin 81 MG tablet,delayed release (DR/EC) 81 mg PO DAILY atenolol 50 MG tablet 50 mg PO DAILY cyclosporine [Restasis] 1 EACH dropperette 1 drp ophthalmic (eye) DAILY Creon 36,000-114,000- 180,000 unit capsule,delayed release(DR/EC) 1 cap PO AC Rx Instructions: Take 1 capsule by mouth before meals/snacks max 6XD colestipol 1 gram tablet 1 g PO BID atorvastatin [Lipitor] 20 mg tablet 20 mg PO HS Qty: 30 1RF clopidogrel [Plavix] 75 mg tablet 75 mg PO DAILY Qty: 30 1RF Referrals Follow up/Referrals: Provider,Referral, MD [Referring, Medical] - See instructions Activity Restrictions/Add. Instructions Additional Instructions/Restrictions: Your workup today shows no evidence of a heart attack or other concerning issues. I do encourage you to follow-up with your controls project engineer if your symptoms persist. If you develop any new or worsening symptoms, or if you become concerned for your help for any reason, return to the emergency department for evaluation Clinical Impressions Clinical Impression: Chest pain Print Language Print Language: Guyanese Discharge ED Provider: Sreekanth Tapia HPI General Chief Complaint: Chest Pain Stated Complaint: Chest Pain Time Seen by Provider: 09/12/25 10:42 Mode of Arrival: EMS Source of Information: Patient and EMS Limitations: No Limitations History of Present Illness HPI narrative: Gina Hector is a 80F with a history of IL, coronary stenting, CABG approximately 20 years ago, on aspirin and Plavix, generalized anxiety disorder, GERD who presents to the emergency department via EMS for complaints of intermittent chest pain since Monday. Patient states that she had severe chest pain on Monday on the left side that resolved on its own. She states that this morning she was awake at approximately 4:00 this morning when she developed a few seconds of left-sided chest pain and felt like she was having a hot flash. She does not believe that she got diaphoretic at that time. She denies any shortness of breath. She states that the symptoms resolved on its own. She states that she is currently asymptomatic. She states that she was recently taken off isosorbide for continual low blood pressure but took 1 last night anyway. She was given 324 mg of aspirin en route. Related Data Home Medications ?Medication ?Instructions ?Recorded ?Confirmed alprazolam 0.25 mg tablet 0.25 mg PO TIDP PRN Anxiety 01/06/19 09/12/25 cevimeline 30 mg capsule 30 mg PO TID 01/06/19 09/12/25 colchicine 0.6 mg tablet 0.6 mg PO DAILY 01/06/19 09/12/25 hydroxychloroquine 200 mg tablet 200 mg PO DAILY 01/06/19 09/12/25 aspirin 81 mg tablet,delayed 81 mg PO DAILY 01/04/20 09/12/25 release atenolol 50 mg tablet 50 mg PO DAILY 01/04/20 09/12/25 cyclosporine 0.05 % eye drops in a 1 drp ophthalmic (eye) DAILY dry 01/04/20 09/12/25 dropperette (Restasis) eyes cyanocobalamin (vitamin B-12) 1,000 mcg IM MONTHLY 08/21/24 09/12/25 1,000 mcg/mL injection solution cholecalciferol (vitamin D3) 125 125 mcg PO DAILY 12/18/24 09/12/25 mcg (5,000 unit) capsule vibegron 75 mg tablet (Gemtesa) 75 mg PO DAILY 12/18/24 09/12/25 [id number] 1 cap PO AC 03/26/25 09/12/25 (pork)36,000-114,000-180k unit capsule,del rel (Creon) colestipol 1 gram tablet 1 g PO BID 06/02/25 09/12/25 Previous Rx's ?Medication ?Instructions ?Recorded vonoprazan 20 mg tablet (Voquezna) 20 mg PO DAILY #90 tabs 09/23/24 scopolamine base 1 mg over 3 days 1 patch transdermal Q3D PRN nausea 05/15/25 transdermal patch and vomiting #10 ea atorvastatin 20 mg tablet (Lipitor) 20 mg PO HS #30 tabs 06/03/25 clopidogrel 75 mg tablet (Plavix) 75 mg PO DAILY #30 tabs 06/03/25 sertraline 50 mg tablet (Zoloft) 50 mg PO DAILY #30 tabs 06/26/25 Allergies Allergy/AdvReac Type Severity Reaction Status Date / Time Penicillins Allergy Intermediate Rash Verified 09/12/25 11:02 ibuprofen (From Motrin) Allergy Mild Rash Verified 09/12/25 11:02 sulfamethoxazole (From Allergy Unknown Verified 09/12/25 11:02 Bactrim) allergy reaction trimethoprim (From Bactrim) Allergy Unknown Verified 09/12/25 11:02 allergy reaction PFSH PFS Disclaimer: The information contained in this section may have been updated after the patient was seen, as this information can be updated by other users. Medical History Irritation symptom of skin Chest pain Chest pain Elevated brain natriuretic peptide (BNP) level Dizziness Nausea Personal history of adenomatous and serrated colon polyps Abdominal pain Atypical chest pain Chest pain Chest pain Heart palpitations Chest pain Atypical chest pain Hyperbilirubinemia Elevated LFTs Acute dehydration Pancreatitis Abdominal pain Chest pain, precordial Neck stiffness Anxiety Diverticulitis Pancreatitis Hyperlipidemia Hypertension Rheumatoid arthritis Osteoarthritis Hemorrhoids Heart disease Gout GERD (gastroesophageal reflux disease) Colon polyps Colitis CAD (coronary artery disease) History of blood transfusion Surgical History H/O left wrist surgery History of right hip replacement History of cholecystectomy History of back surgery Hx of CABG H/O right wrist surgery Family History Father Cancer Social History Smoking Status: Unknown if ever smoked alcohol intake: never substance use type: denies use current occupational status: retired Travel in the last 8 weeks?: None caffeine: Yes Have you lived/traveled outside [place] in past 30 days?: No Contact w/someone who lives/traveled outside US past 30 days?: No Exposure to someone with infectious disease in past 14 days?: No Do you have a fever (greater than 100.4 F or 38 C)?: No Have you tested positive for COVID-19?: No Exposed to someone with COVID-19 in past 14 days?: No Do you have a sore throat?: No Do you have a cough?: No Do you have any weakness?: No Do you have any diarrhea?: No Are you experiencing any unusual bleeding?: No Do you have any muscle aches/pain?: No Do you have any abdominal pain?: No Are you experiencing loss of taste or smell?: No Other Medical History Have you received the Flu Vaccine for this season: No Have you received the Pneumonia Vaccine: Yes ROS Obtained: Yes Systems reviewed as appropriate & no additional complaints except as documented Physical Exam General General appearance: alert and in no apparent distress Head Head exam: atraumatic Eye Eye exam: Present normal appearance ENT ENT exam: Present normal external ear exam Neck Neck exam: Present full ROM Chest Chest inspection: Present symmetric chest wall rise Respiratory Respiratory exam: Present normal lung sounds bilaterally; Absent respiratory distress, wheezes or stridor Cardiovascular Cardiovascular exam: Present regular rate and normal rhythm Abdominal Exam Abdominal exam: Present soft; Absent tenderness or guarding Extremities Exam Extremities exam: Present normal inspection Back Exam Back exam: Present normal inspection Neurological Exam Neurological exam: Present alert and oriented X3 Psychiatric Psychiatric exam: Present normal affect Skin Skin exam: Present warm, dry and other (bruising to mid forehead and upper extremities in multiple stages of healing) HEART Score HEART Score HEART Score assessment performed?: Yes HEART Score: 4 Critical Care Critical Care Time Critical Care Time: No Medical Decision Making Earl Inquiry Pt receiving controlled substance: No Vital Signs Vital Signs: 09/12/25 10:41 09/12/25 10:58 09/12/25 12:00 Temperature 97.8 F Temperature Source Oral Pulse Rate 61 57 L Pulse Rate [Left Radial] 63 Respiratory Rate 20 16 Blood Pressure 118/55 L Blood Pressure [Right Arm] 116/54 L Blood Pressure Mean 78 Blood Pressure Mean [Right Arm] 74 02 Sat by Pulse Oximetry 98 98 Oxygen Delivery Method Room Air Room Air 09/12/25 12:31 09/12/25 13:00 Temperature Temperature Source Pulse Rate 44 L 55 L Pulse Rate [Left Radial] Respiratory Rate 19 20 Blood Pressure 131/59 L 125/67 Blood Pressure [Right Arm] Blood Pressure Mean Blood Pressure Mean [Right Arm] 02 Sat by Pulse Oximetry 100 99 Oxygen Delivery Method Room Air Room Air Lab Data Labs: Lab Results 09/12/25 10:15: WBC 4.9, RBC 3.69 L, Hgb 12.5, Hct 36.7 L, MCV 99.5 H, MCH 33.9 H, MCHC 34.1, RDW 12.8, Plt Count 122 L, MPV 11.8 H, Neut % (Auto) 78.3, Lymph % (Auto) 13.0, [place] % (Auto) 7.9, Eos % (Auto) 0.2, Baso % (Auto) 0.4, Neut # (Auto) 3.9, Lymph # (Auto) 0.6 L, [place] # (Auto) 0.4, Eos # (Auto) 0.0, Baso # (Auto) 0.0, PT 11.7, INR 1.06, APTT 23.4, Sodium 136, Potassium 3.8, Chloride 103, Carbon Dioxide 24, Anion Gap 12.8, BUN 24 H, Creatinine 1.20 H, Estimated Creat Clear 46, Estimated GFR 43 L, Est GFR ( Amer) 52 L, Glucose 100, Calcium 9.4, Total Bilirubin 1.7 H, AST 41 H, ALT 34, Alkaline Phosphatase 81, Troponin I 0.02, NT-Pro-B Natriuret Pep 697 H, Total Protein 7.0, Albumin 3.6, Globulin 3.4 H, Albumin/Globulin Ratio 1.1 09/12/25 12:48: Troponin I 0.02 09/12/25 10:15 09/12/25 10:15 Response Orders (Tests/Meds): ORDERS Category Date Time Status CXR --portable [XR chest portable] Stat Exams 09/12/25 10:49 Completed BNP [NT Pro Brain Natriuretic Pep.] Stat Lab 09/12/25 10:15 Completed CBC w/Auto Diff [Complete Blood Count Auto Diff] Stat Lab 09/12/25 10:15 Completed CMP [Comprehensive Metabolic Panel] Stat Lab 09/12/25 10:15 Completed PT INR [Prothrombin Time INR] Stat Lab 09/12/25 10:15 Completed PTT [Activated Partial Thrombo Time] Stat Lab 09/12/25 10:15 Completed Troponin I Q3H Lab 09/12/25 12:48 Completed Troponin I Q3H Lab 09/12/25 17:00 Ordered Troponin I Stat Lab 09/12/25 10:15 Completed ECG Data Tracing #1: Attestation: I reviewed this ECG and interpreted as documented below: ECG Narrative: Normal sinus rhythm. T wave inversions in leads V3, V4, V5, V6, I, II, III and aVF. Patient has biphasic T waves in V2. These are unchanged from previous EKGs. MDM Narrative Medical Decision Narrative: Gina Hector is a 80F with a history of IL, coronary stenting, CABG approximately 20 years ago, on aspirin and Plavix, generalized anxiety disorder, GERD who presents to the emergency department via EMS for complaints of intermittent chest pain since Monday. Patient states that she had severe chest pain on Monday on the left side that resolved on its own. She states that this morning she was awake at approximately 4:00 this morning when she developed a few seconds of left-sided chest pain and felt like she was having a hot flash. She does not believe that she got diaphoretic at that time. She denies any shortness of breath. She states that the symptoms resolved on its own. She states that she is currently asymptomatic. She states that she was recently taken off isosorbide for continual low blood pressure but took 1 last night anyway. She was given 324 mg of aspirin en route. On arrival, patient is hemodynamically stable, heart rate within normal limits, blood pressure 118/55, oxygen saturation 98% on room air. Physical exam, as stated above, revealed overall well-appearing female in no distress. She is alert and answering questions appropriately. Abdomen soft, nontender nondistended. Cardiopulmonary exam is unremarkable. She does not have any significant peripheral edema. She has some bruising in multiple stages of healing to her mid forehead and upper extremities, and she states that she fell a while ago that resulted in these bruises. Differential diagnosis includes, but is not limited to: ACS, CHF exacerbation, pleurisy, cardiac arrhythmia, pericarditis, pneumonia, pneumothorax, among others. The most morbid conditions were considered and workup was based on these. Workup in the emergency department clued: Chest x-ray, EKG, CBC with differential, CMP, troponin, BNP, PTT, PT/INR. Patient had received full dose aspirin prior to arrival. EKG was interpreted by me personally. No acute changes from previous EKGs. See interpretation above Chest x-ray interpreted by me personally. There is some cardiomegaly and status post sternotomy. No focal consolidation, pneumothorax, pleural effusion. See radiology interpretation for details. Workup shows no leukocytosis, hemoglobin normal at 12.5, coagulation studies unremarkable nonactionable. Mildly elevated creatinine at 1.2 and BUN of 24 but close to baseline. Electrolytes within normal limits. Bilirubin chronically elevated at 1.7 and mild elevation of AST of 41 but otherwise unremarkable nonactionable. NT proBNP stable at 697. Troponin negative x 2 at 0.02. On reassessment, patient remains in stable condition. Her workup today is unremarkable and I do feel that she is appropriate discharge at this time. She states that she has a controls project engineer in [place] and I encouraged her to follow-up with them. Strict return precautions were given. All questions were answered. She demonstrated understanding and was in agreement this plan. She was then discharged from the emergency department in stable condition
--- OUTSIDE RECORDS SUMMARY | 2025-09-12 10:49 | XMS_ITS | Data Portability ---
Author Organization [facility] [place] [facility], [facility] [place] [facility] Address [address] [place] [address] Care Team Providers Care Etcher Machine Name Role Phone MIGDALIA KHANNA Primary Care Provider MIGUEL SALAZAR Break Up Worker Assessment Encounter Date Assessment Date Assessment LastModified by Organization Details LastModified Time 10/23/2023 10/23/2023 Ms. Hetcor is a very pleasant, 78 y.o. patient [...] graft angiography. This was carried out by tx on March 10 and revealed ostial RCA [...] graft angiography. This was carried out by tx on March 10, 2023, and revealed ostial [...] has been evaluated in the ER at [facility] on 01/15/2024 for chest pain. She [...] graft angiography. This was carried out by tx on March 10, 2023, and revealed ostial [...] has been evaluated in the ER at [facility] on 01/15/2024 for chest pain. She [...] has been evaluated in the ER at [facility] on 01/15/2024 for chest pain. She [...] follow-up visit. RTC: 6 months with EKG [email or web address] Not available 10/29/2024 19:34:29 07/23/2025 07/23/2025 Ms. Hector is a very pleasant, 80 y.o. patient with a h/o CAD, h/o CABG, hypertension, rheumatoid arthritis, GERD, osteoporosis who was last seen in the office on 10/29/2024. Since her last visit with me in the office, patient was hospitalized for several days at [facility] ([place], [place]) in early May 2025. Ultimately, she underwent coronary angiography with PCI (SREEDHAR to SVG-OM) on May 14, 2025. Overall, she has felt better since then. Additionally, she has been dealing with high levels of anxiety. With medication, this has begun to improve. Patient returns to the clinic today for a scheduled follow-up visit. RTC: 3 months for clinical reassessment [email or web address] Not available 07/25/2025 15:31:18 Plan of Treatment [...] By Organization Details Last Modified Time 02/28/2024 [id number] body mass index: care instructions Not available 02/28/2024 18:49:40 high blood pressure: care instructions Not available 02/28/2024 18:49:40 10/29/2024 [id number] body mass index: care instructions Not available 10/29/2024 19:35:08 high blood pressure: care instructions Not available 10/29/2024 19:35:08 07/23/2025 [id number] body mass index: care instructions [email or web address] Not available 07/23/2025 16:45:51 high blood pressure: care instructions Not available 07/23/2025 16:45:51 Reason for Referral None Reported. Results Created Date Observation Date Name Description Value Unit Range Abnormal Flag Note LastModifiedBy Organization Detail LastModifiedTime 10/24/2010/23/2023 elect geetha johnson am No observ ation record ed. BARCODE Not Available 2022 08:53:54 01/24/20 24 01/19/2024 US, doppl er echoc ardio gram, w/ color flow No observ ation record ed. [address], [place], [place], [address], 01/29/2024 09:10:07 01/30/20 24 01/19/2024 US, doppl er echoc ardio gram, w/ color flow No observ ation record ed. [address], [place], [place], [address], 01/31/2024 13:06:02 01/30/20 24 01/19/2024 US, doppl er echoc ardio gram, w/ color flow No observ ation record ed. [address] (Med Record) [address], [place], [place], [address], 01/31/2024 13:05:34 01/30/20 24 01/15/2024 elect geetha johnson am No observ ation record ed. [address], [place], [place], [address], 01/31/2024 13:05:20 02/12/20 24 01/19/2024 US, doppl er echoc ardio gram, w/ color flow No observ ation record ed. [place] [address], [place], [address], 02/12/2024 15:34:23 02/12/20 24 02/06/2024 event monit or No observ ation record ed. [email or web address] [facility] [address], [place], [address], 02/13/2024 11:15:22 05/02/20 24 04/24/2024 nikhil johnson am No observ ation record ed. BARCODE Not Available 2023 08:45:48 Result Notes None recorded. Problems Name Problem SNOMED Code Status Onset Date Resolution Date Notes Provider Name and Address Organization Details Recorded Time Coronary arteriosc lerosis in [place] 904138726234 7 Active 2014 From Automated Load;Prov ider: Jason Amado;Stat us: Active Drea Regan [facility] 0 15:08:54 Hyperlipi demia 27745246 Active 2014 From Automated Load;Prov ider: Jason Amado;Stat us: Active Drea Regan [facility] 0 15:08:54 Problem Notes None recorded. Procedures Surgical History Date Name Laterality Status Provider Name and Address Organization Details Recorded Time 04/24/20 24 EKG completed MIGUEL SALAZAR MD [address] [place] [address], [phone], [facility] 04/26/2024 11:09:13 10/23/20 23 EKG completed MIGUEL SALAZAR MD [address] [place] [address], [phone], [facility] 10/23/2023 14:45:41 10/25/20 22 EKG completed YELENA GARCIA PA-C [address] [place], [address], [facility] 10/25/2022 14:05:38 04/25/20 22 EKG completed YELEAN GARCIA PA-C [address] [place], [address], [facility] 04/25/2022 14:01:56 10/20/20 21 EKG completed YELENA GARCIA PA-C [address] [place], [address], [facility] 10/20/2021 14:58:02 10/12/20 10 Cardiac Catheterization completed [facility] 03/29/2017 15:44:16 09/13/20 02 Cardiac Surgery completed [facility] 03/29/2017 15:43:45 Other completed [facility] 03/29/2017 15:43:14 Cholecystectomy completed [facility] 03/29/2017 15:43:26 Other completed [facility] 03/29/2017 15:44:26 Other completed [facility] 03/29/2017 15:44:34 Other completed [facility] 03/29/2017 15:44:42 Other completed [facility] 03/29/2017 15:44:50 Imaging Results None recorded. Procedure Notes None recorded. Medical Equipment None Reported. Allergies Allergen ID Allergen Name Allergen Category Reaction Reaction Severity Criticality Documentation Date Start Date Code Code System Note Provider Name and Address Organization Details Recorded Time 403205 Motrin medicatio n itching Not available Not available 10/06/2016200948 8 RxNorm React ion: ITCHI NG; Comme nt: Creat ed By: Marge rivas Date: 08/31 3:29: 43 PM; Not Available [facility] 6 14:10:00 377806 Product containin g penicilli n (product) medicatio n rash Not available Not available 10/07/20162009 36521 8001 SNOMED React ion: RASH; Comme nt: Creat ed By: Marge rivas Date: 08/31 3:29: 20 PM; Not Available [facility] 6 03:51:38 Medications Name Sig Start [...] Updated DateTime 4 162.56 cm 34 kg/m2 74878.0 1 g 97 % 97 % 64 /min 120/68 mm[Hg] Magda Zhong [facility] 4 15:03:41 Date Recorded Body height Body mass index (BMI) Body weight Respiratory rate Heart rate Oxygen saturation Oxygen saturation in Arterial blood by Pulse oximetry Systolic And Diastolic Provider Name and Address Organization Details Last Updated DateTime 4 162.56 cm 34.4 kg/m2 24076.5 7 g 16 /min 58 /min 98 % 98 % 124/66 mm[Hg] Lo Ramirez [facility] 4 14:52:40 Date Recorded Body height Heart rate Oxygen saturation Oxygen saturation in Arterial blood by Pulse oximetry Body mass index (BMI) Body weight Systolic And Diastolic Provider Name and Address Organization Details Last Updated DateTime 5 162.56 cm 60 /min 96 % 96 % 29.5 kg/m2 82853.8 9 g 110/62 mm[Hg] Francisca Eagle [facility] 5 15:56:55 Date Recorded Body height Body mass index (BMI) Body weight Heart rate Oxygen saturation Oxygen saturation in Arterial blood by Pulse oximetry Systolic And Diastolic Provider Name and Address Organization Details Last Updated DateTime 3 162.56 cm 34.8 kg/m2 04878.4 6 g 58 /min 97 % 97 % 122/65 mm[Hg] Emily Malloy [facility] 3 13:51:20 Date Recorded Body height Oxygen saturation Oxygen saturation in Arterial blood by Pulse oximetry Heart rate Systolic And Diastolic Provider Name and Address Organization Details Last Updated DateTime 4 162.56 cm 98 % 98 % 65 /min 140/70 mm[Hg] Magda Zhong [facility] 4 14:03:05 Social History Question Answer Notes LastModified by [employer] Details LastModified Time Tobacco Smoking Status [facility] 15:41:57 How Much Tobacco Do You Chew? None Information not available 11/23/2020 Marital Status Informatio n not available 03/29/2017 What Was The Date Of Your Most Recent Tobacco Screening? 10/29/2024 Information not available 10/29/2024 How Many Children Do You Have? 1 Information not available 03/29/2017 What Is Your Relationship Status? Information not available 10/23/2023 How Much Tobacco Do You Smoke? No Information not available 11/23/2020 Has Tobacco Cessation Counseling Been Provided? No Information not available 02/28/2024 Have You Recently Traveled Abroad? No [email or web address] Information not available 10/20/2021 Sex: Female Functional Status Question Answer Note LastModified by [employer] Details LastModified Time Do you or have you ever used any other forms of tobacco or nicotine? No Information not available 02/28/2024 Do you or have you ever used smokeless tobacco? Never used smokeless tobacco [email or web address] Information not available 10/24/2019 Are you currently employed? 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 Information not available 03/29/2017 Do you or have you ever used e-cigarettes or vape? Never used electronic cigarettes [email or web address] Information not available 10/24/2019 Mental Status None [...] Coronary Artery Disease Y Heart Problems Y Atrial Fibrillation N Thyroid Disease N Heart Conditions Y Heart Arrhythmia N Implanted Cardiac Device N Thyroid Problems N COPD N Lung Disease N Pacemaker N Peripheral Arterial Disease N Edema Y Nervous Illness Y Chest Pain Y Heart Attack (HI) Y Ulcers N Diabetes N Rheumatic Fever N Hiatal hernia N Heart Murmur N Tuberculosis N AIDS/HIV N Acid Reflux (GERD) Y Hyperlipidemia Y Cancer N Stroke N Asthma N History of Blood Thinners Y Cardiac Disease Y Peripheral Vascular Disease N Blood Thinners Y Shortness of Breath N Sleep Apnea N Jaundice N High Cholesterol Y Warfarin Management N GERD/Reflux Y Heart Disease Y Arrhythmia N Restless leg syndrome N Hypertension Y Endocrine Disorder N Gynecological HistoryNo gynecological history recorded. Obstetrics History GPAL:G 0 P 0 0 0 0 Immunizations Vaccine Type Date Status Note Provider Nam e and Address Organization Details Recorded Time Influenza, split virus, quadrivalent, preservative 7 completed Not Available [facility] 07/23/2025 15:27:14 pneumococcal polysaccharide PPV23 7 completed Not Available [facility] 07/23/2025 15:27:14 Pneumococcal conjugate PCV 13 8 completed Not Available [facility] 07/23/2025 15:27:14 COVID-19, mRNA, LNP-S, PF, 100 mcg/0.5mL dose or 50 mcg/0.25mL dose 2 completed Not Available [facility] 07/23/2025 15:27:14 Influenza, high-dose, trivalent, PF 3 completed Not Available [facility] 07/23/2025 15:27:14 Influenza, high-dose, trivalent, PF 4 completed Not Available [facility] 07/23/2025 15:27:14 COVID-19, mRNA, LNP-S, PF, 100 mcg/0.5mL dose or 50 mcg/0.25mL dose 1 completed Emily Gama [facility] 10/20/2021 14:10:21 COVID-19, mRNA, LNP-S, PF, 100 mcg/0.5mL dose or 50 mcg/0.25mL dose 1 completed Emily Malloy [facility] 10/20/2021 14:10:37 COVID-19, mRNA, LNP-S, PF, 100 mcg/0.5mL dose or 50 mcg/0.25mL dose [facility] 10/20/2021 14:10:54 Past Encounters Encounter ID Performer Location Encounter Start Date Encounter Closed Date Diagnosis/Indication Diagnosis SNOMED-CT Code Diagnosis ICD10 Code Diagnosis IMO Codes Diagnosis Note [id number] JASON AMADO MD CARDIOLOG [place] [address] [place] [phone] 04/03/2017 13:10:27 04/03/2017 13:49:50 Coronary arteriosclerosis in [place] 3210821811 107 I25.10 Medication changes, as well as [...] call for any change in status. Hyperlipidemia 00685835 E78.5 reviewed outside lipid studies. All parameters are in appropriat e range. She is to continue her current regimen. [id number] JASON AMADO MD CARDIOLOG Y [address] [place] [id number] 09/25/2017 12:53:34 09/25/2017 14:36:54 Coronary arteriosclerosis in [place] 4005101844 107 I25.10 Medication changes, as well as [...] call for any change in status. Hyperlipidemia 36693730 E78.5 reviewed outside lipid studies. All parameters are in appropriat e range. She is to continue her current regimen. [id number] JASON AMADO MD CARDIOLOG Y [address] ,[address] [place] [address] 04/02/2018 09:28:26 04/02/2018 11:01:03 Coronary arteriosclerosis in [place] 5995934497 107 I25.10 Medication changes, as well as [...] call for any change in status. Hyperlipidemia 66399402 E78.5 reviewed outside lipid studies. All parameters are in appropriat e range. She is to continue her current regimen. [id number] JASON AMADO MD CARDIOLOG Y [address] [place] [id number] 10/22/2018 13:48:50 10/22/2018 15:10:00 Coronary arteriosclerosis in [place] 6898242164 107 I25.10 Medication changes, as well as [...] call for any change in status. Hyperlipidemia 44950959 E78.5 Most recent testing reviewed. All laboratory measuremen ts in appropriat e parameters on current medical therapy. This was reviewed and discussed with the patient and all questions answered. [id number] JASON AMADO MD CARDIOLOG Y [address] [place] [address] 02/07/2019 11:09:23 02/07/2019 13:35:19 Coronary arteriosclerosis in [place] 5903445496 107 I25.10 Medication changes, as well as [...] call for any change in status. Hyperlipidemia 84212567 E78.5 Most recent testing reviewed. All laboratory measuremen ts in appropriat e parameters on current medical therapy. This was reviewed and discussed with the patient and all questions answered. [id number] JASON AMADO MD CARDIOLOG Y [address] [place] [id number] 05/08/2019 13:19:05 05/08/2019 13:58:46 Coronary arteriosclerosis in [place] 3798790425 107 I25.10 Medication changes, as well as [...] call for any change in status. Hyperlipidemia 20930991 E78.5 Most recent testing reviewed. All laboratory measuremen ts in appropriat e parameters on current medical therapy. This was reviewed and discussed with the patient and all questions answered. Edema of foot 333400194 R60.0 I discussed the importance of salt restrictio n. Per FDA recommenda tions, I advise limit of 2000 -2400 mg daily of sodium. Increase sodium intake is often associated with worsening of hypertensi on and or heart failure.DA SH diet given.. Advised to increase furosemide to 40 mg a day until edema resolves and then resume previous dosage. [id number] FROILAN BAGLEY MD H[facility] [address] [place] [id number] 09/09/2019 08:55:56 09/09/2019 09:56:44 [id number] FROILAN BAGLEY MD HEM[facility] [address] [place] [phone] 09/23/2019 14:46:58 09/23/2019 15:53:02 [id number] JASON AMADO MD CARDIOLOG Y [address] [place] [id number] 10/24/2019 12:38:41 10/24/2019 13:57:59 Coronary arteriosclerosis in [place] 4466211490 107 I25.10 Medication changes, as well as [...] call for any change in status. Hyperlipidemia 13566027 E78.5 Most recent testing reviewed. All laboratory measuremen ts in appropriat e parameters on current medical therapy. This was reviewed and discussed with the patient and all questions answered. Edema of foot 242929420 R60.0 I discussed the importance of salt restrictio n. Per FDA recommenda tions, I advise limit of 2000 -2400 mg daily of sodium. Increase sodium intake is often associated with worsening of hypertensi on and or heart failure.DA SH diet given.. Advised to increase furosemide to 40 mg a day until edema resolves and then resume previous dosage. [id number] FROILAN BAGLEY MD HEM/[facility] [address] [place] [address] 04/20/2020 12:49:16 04/20/2020 13:27:21 [id number] JASON AMADO MD CARDIOLOG Y [address] [place] [address] 05/04/2020 13:42:38 05/04/2020 14:45:16 Coronary arteriosclerosis in [place] 0608676971 107 I25.10 Medication changes, as well as [...] call for any change in status. Hyperlipidemia 24817231 E78.5 Most recent testing reviewed. All laboratory measuremen ts in appropriat e parameters on current medical therapy. This was reviewed and discussed with the patient and all questions answered. Edema of foot 187860898 R60.0 I discussed the importance of salt restrictio n. Per FDA recommenda tions, I advise limit of 2000 -2400 mg daily of sodium. Increase sodium intake is often associated with worsening of hypertensi on and or heart failure.DA SH diet given.. Advised to increase furosemide to 40 mg a day until edema resolves and then resume previous dosage. [id number] JASON AMADO MD CARDIOLOG Y [address] [place] [id number] 11/23/2020 14:04:41 11/23/2020 15:54:54 Coronary arteriosclerosis in [place] 2916755532 107 I25.10 Medication changes, as well as [...] call for any change in status. Hyperlipidemia 36325453 E78.5 Most recent testing reviewed. All laboratory measuremen ts in appropriat e parameters on current medical therapy. This was reviewed and discussed with the patient and all questions answered. Edema of foot 301080223 R60.0 I discussed the importance of salt restrictio n. Per FDA recommenda tions, I advise limit of 2000 -2400 mg daily of sodium. Increase sodium intake is often associated with worsening of hypertensi on and or heart failure.DA SH diet given.. Advised to increase furosemide to 40 mg a day until edema resolves and then resume previous dosage. COVID-19 189578524 U07.1 I had extensive discussion with patient regarding the importance of vaccinatio n and reviewed findings of COVID 19 infection and answered all questions. [id number] JASON AMADO MD CARDIOLOG Y [address] [place] [address] 04/22/2021 10:16:00 04/22/2021 10:42:04 Coronary arteriosclerosis in [place] 4379463164 107 I25.10 Medication changes, as well as [...] No testing needed at this time Hyperlipidemia 55091898 E78.5 Most recent testing reviewed. All laboratory measuremen ts in appropriat e parameters on current medical therapy. This was reviewed and discussed with the patient and all questions answered. Edema of foot 054494244 R60.0 I discussed the importance of salt restrictio n. Per FDA recommenda tions, I advise limit of 2000 -2400 mg daily of sodium. Increase sodium intake is often associated with worsening of hypertensi on and or heart failure.DA SH diet given.. Advised to increase furosemide to 40 mg a day until edema resolves and then resume previous dosage. COVID-19 848868540 U07.1 I had extensive discussion with patient regarding the importance of vaccinatio n and reviewed findings of COVID 19 infection and answered all questions. [id number] YELENA GARCIA PA-C CARDIOLOG Y [address] [place] [address] 10/20/2021 13:30:08 10/20/2021 15:19:47 Coronary arteriosclerosis 31086156 I25.10 Medication changes, as well as new [...] call for any change in status Dyslipidemia 443822784 E 78.5 Lipid goals discussed with patient. (Total cholestero l less than 170, LDL less than 70. ) Continue heart healthy diet.bertin nue current dose of Lipitor. [id number] YELENA GARCIA PA-C CARDIOLOG Y [address] [place] [address] 04/25/2022 13:10:58 04/25/2022 14:17:13 Obese 301018594 E66.9 Coronary arteriosclerosis 67508246 I25.10 Medication changes, as well as new [...] call for any change in status Dyslipidemia 326721930 E 78.5 Lipid goals discussed with patient. (Total cholestero l less than 170, LDL less than 70. ) Continue heart healthy diet.bertin raissae current dose of Lipitor. [id number] YELENA GARCIA PA-C CARDIOLOG Y [address] [place] [address] 10/25/2022 13:07:16 10/25/2022 14:19:06 Obese 145203163 E66.9 Coronary arteriosclerosis 04462060 I25.10 The patient is doing well on current management . No new active problems identified . Chronic problems are all stable. Patient is to continue current regimen without change. All questions answered and regimen reviewed. Patient is to call for any change in status Dyslipidemia 435626641 E 78.5 Continue current dose of Lipitor. Obtain fasting lipid profile with PCP [id number] MIGUEL SALAZAR MD CARDIOLOG Y [address] [place] [address] 04/19/2023 08:57:28 04/19/2023 12:59:26 Obesity 458861853 E66.9 patient's BMI today was = 34.1; recommend weight loss for beneficial effects on health. Coronary atherosclerosis 815823631 I25.10 patient with history of CAD, history of CABG-see HPI for detail; no new symptoms reported; exam is relatively unchanged from previous visit; continue with current medication s -enteric-c oated aspirin 81 mg p.o. daily, atenolol 50 mg 1 p.o. nightly, colestipol 1 g tablet p.o. twice daily Anxiety 68841920 F41.9 She reports much increased anxiety/st ress in her life recently due to the deaths of several friends. Hyperlipidemia 43596947 E78.5 continue with current medication s -colestipo l 1 g tablet p.o. twice daily, low cholestero l diet, and recommend fasting lipids at least yearly. Goal lipid profile: TC<=200, TG<=150, HDL>=40, LDL<=70. [id number] MIGUEL SALAZAR MD CARDIOLOG Y [address] [place] [address] 10/23/2023 13:19:59 10/23/2023 15:24:43 Coronary atherosclerosis 841853323 I25.10 patient with history of CAD, history of CABG-see HPI for detail; no new symptoms reported; exam is relatively unchanged from previous visit; continue with current medication s -enteric-c oated aspirin 81 mg p.o. daily, atenolol 50 mg 1 p.o. nightly, colestipol 1 g tablet p.o. twice daily EKG today -sinus bradycardi a, rate= 58, normal axis, QTc= 399 ms, likely old inferior HI, inverted T waves noted in the inferior and anterolate ral leads. Cardiac exam today was benign. No new recommenda tions at this time Essential hypertension 34884631 I10 BP today was = 122/65 mmHg; continue with current med. -Atenolol 50 mg p.o. nightly patient is recommende d to check BPs at home periodical ly & bring BP log to next visit. A low sodium (< 2000 mg/day) diet is also recommende d. [id number] MIGUEL SALAZAR MD CARDIOLOG Y [address] [place] [address] 02/28/2024 14:13:45 02/28/2024 15:43:14 Essential hypertension 02259277 I10 BP today was = 120/68 mmHg; continue with current med. - Atenolol 50 mg p.o. nightly patient is recommende d to check BPs at home periodical ly & bring BP log to next visit. A low sodium (< 2000 mg/day) diet is also recommende d. Obesity 112440964 E66.9 patient's BMI today was = 34.0; recommend weight loss for beneficial effects on health. Coronary atherosclerosis 996264573 I25.10 patient with history of CAD, history of CABG-see HPI for detail; no new symptoms reported; exam is relatively unchanged from previous visit; continue with current medication s -enteric-c oated aspirin 81 mg p.o. daily, atenolol 50 mg 1 p.o. nightly, colestipol 1 g tablet p.o. twice daily. EKG (10/23/23) -sinus bradycardi a, rate= 58, normal axis, QTc= 399 ms, likely old inferior HI, inverted T waves noted in the inferior and anterolate ral leads. Cardiac exam today was benign. No new recommenda tions at this time Palpitations 72201221 R0 0.2 The etiology of the patient's [...] the goal of reducing palpitatio n burden. [id number] MIGUEL SALAZAR MD CARDIOLOG Y [address] [place] [address] 04/24/2024 13:47:52 05/02/2024 11:17:54 Coronary atherosclerosis 251540127 I25.10 patient with history of CAD, history [...] axis, QTc= 399 ms, likely old inferior HI, inverted T waves noted in the inferior and anterolate ral leads. EKG (04/26/24) - sinus bradycardi a with PACs, rate=58, normal axis, likely old inferior HI, T wave inversions (V4-V6) - mentioned on 02/03 EKG report. Cardiac exam today was benign. No new recommenda tions at this time Essential hypertension [id number] I10 BP today was = 124/66 mmHg; continue with current med. - Atenolol 50 mg p.o. nightly patient is recommende d to check BPs at home periodical ly & bring BP log to next visit. A low sodium (< 2000 mg/day) diet is also recommende d. Palpitations [id number] R0 0.2 The etiology of the patient's [...] goal of reducing palpitatio n burden. Obesity [id number] E66.9 patient's BMI today was = 34.4; recommend weight loss for beneficial effects on health. [id number] MIGUEL ASLAZAR MD CARDIOLOG Y [address] [place] [address] 10/29/2024 12:55:01 10/29/2024 14:32:18 Coronary atherosclerosis [id number] I25.10 patient with history of CAD, history [...] axis, QTc= 399 ms, likely old inferior HI, inverted T waves noted in the inferior and anterolate ral leads. EKG (04/26/24) - sinus bradycardi a with PACs, rate=58, normal axis, likely old inferior HI, T wave inversions (V4-V6) - mentioned on 02/03 EKG report. Cardiac exam today was benign. No new recommenda tions at this time Essential hypertension [id number] I10 BP today was = 140/70 mmHg, HR=65 bpm; continue with current med. - Atenolol 50 mg p.o. nightly patient is recommende d to check BPs at home periodical ly & bring BP log to next visit. A low sodium (< 2000 mg/day) diet is also recommende d. Palpitations [id number] R0 0.2 The etiology of the patient's [...] goal of reducing palpitatio n burden. Obesity [id number] E66.9 patient's BMI today was = 34.4; recommend weight loss for beneficial effects on health. Gastroesop hageal reflux disease [id number] K21.9 Patient reports that her chest discomfort has gone away with use of new medication vs. GERD. In retrospect , she thinks many of her chest pain episodes have been due to GERD. [id number] MIGUEL SALAZAR MD CARDIOLOG Y [address] [place] [address] 07/23/2025 15:25:48 08/01/2025 01:15:53 Coronary atherosclerosis [id number] I25.10 patient with history of CAD, history [...] axis, QTc= 399 ms, likely old inferior HI, inverted T waves noted in the inferior and anterolate ral leads. EKG (04/26/24) - sinus bradycardi a with PACs, rate=58, normal axis, likely old inferior HI, T wave inversions (V4-V6) - mentioned on 02/03 EKG report. Cardiac exam today was benign. She is s/p PCI (SREEDHAR to SVG-OM) on 05/14/25. This occurred while she was an inpatient at [facility]. No new recommenda tions at this time Essential hypertension [id number] I10 BP today was = 110/62 mmHg, [...] mg/day) diet is also recommende d. Palpitations [id number] R0 0.2 The etiology of the patient's [...] goal of reducing palpitatio n burden. Obesity [id number] E66.9 patient's BMI today was = 29.5; recommend weight loss for beneficial effects on health. Gastroesop hageal reflux disease [id number] K21.9 Patient reports that her chest discomfort [...] Member ID Gaines Member ID Guarantor Name 08/01/2025 2 [place] [id number] Gina Haas [id number] Ginarudi Hector 07/20/2025 1 [place] Gina Samina [id number] Gina Haas 10/07/2020 2 [place] [id number] Gina Hector [id number] Gina Hector Notes Date Note Type Note Provider Name and Address Organization Details Recorded Time 10/23/2023 text/html ROS as noted in the [...] graft angiography. This was carried out by tx on March 10 and revealed ostial RCA [...] a scheduled follow-up visit. MIGUEL SALAZAR MD [address] [place] [address], [phone], [facility] 10/23/2023 14:47:35 02/28/2024 text/html ROS as [...] has been evaluated in the ER at [facility] on 01/15/2024 for chest pain. She was ruled out for ACS, and sent home. Since then, she reports occasional SOA/THOMPSON and chest discomfort as well as palpitations. She went to the ER twice more last month, and wonders if her recent symptoms were related to anxiety. Patient returns to the clinic today for a scheduled follow-up visit. MIGUEL SALAZAR MD [address] [place] [address], [phone], [facility] 02/28/2024 18:50:28 04/24/2024 text/html ROS as [...] has been evaluated in the ER at [facility] on 01/15/2024 for chest pain. She [...] a scheduled follow-up visit. MIGUEL SALAZAR MD [facility] [place], [phone], [facility] 04/26/2024 11:11:23 10/29/2024 text/html ROS as [...] has been evaluated in the ER at [facility] on 01/15/2024 for chest pain. She [...] a scheduled follow-up visit. MIGUEL SALAZAR MD [address] [place], [phone], [facility] 10/29/2024 19:38:08 07/23/2025 text/html ROS as noted in the HPI Ms. Hector is a very pleasant, 80 y.o. patient with a h/o CAD, h/o CABG, hypertension, rheumatoid arthritis, GERD, osteoporosis who was last seen in the office on 10/29/2024. Since her last visit with me in the office, patient was hospitalized for several days at [facility] ([place], [place]) in early May 2025. Ultimately, she underwent coronary angiography with PCI (SREEDHAR to SVG-OM) on May 14, 2025. Overall, she has felt better since then. Additionally, she has been dealing with high levels of anxiety. With medication, this has begun to improve. Patient returns to the clinic today for a scheduled follow-up visit. MIGUEL SALAZAR MD [facility] [place], [phone], [facility] 07/25/2025 15:32:21 OBGyn Episode No OBEpisode recorded.
--- OUTSIDE RECORDS SUMMARY | 2025-09-12 10:49 | XMS_ITS | Data Portability ---
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 Plan of Treatment [...] By Organization Details Last Modified Time 09/09/2019 [id number] gout: care instructions [email or web address] Not available 09/09/2019 09:47:00 thrombocytopenia : care instructions [email or web address] Not available 09/09/2019 09:47:00 body mass index: care instructions [email or web address] Not available 09/09/2019 09:47:00 Body Mass Index: Care Instructions-LC Not available 09/09/2019 09:46:59 learning about healthy weight [email or web address] Not available 09/09/2019 09:47:00 rheumatoid arthritis diet: care instructions [email or web address] Not available 09/09/2019 09:47:00 Rheumatoid Arthritis (RA): Care Instructions Not available 09/09/2019 09:47:00 Reason for Referral None Reported. Results Created Date Observation Date Name Description Value Unit Range Abnormal Flag Note LastModifiedBy Organization Detail LastModifiedTime 09/09/20 19 09/09/2019 CBC w/ auto diff white blood cells 5.7 K/uL 3.8-10 .8 normal Not Available [facility] [address] [place] [address], [phone], 09/09/2019 10:28:34 09/09/20 19 09/09/2019 CBC w/ auto diff red blood cells 4.35 M/uL 3.80-5 .20 normal Not Available [facility] [address] [place] [address], [phone], 09/09/2019 10:28:34 09/09/20 19 09/09/2019 CBC w/ auto diff hemoglobin 14.2 g/dL 12.0-1 6.0 normal Not Available [facility] [address] [place] [address], [address], 09/09/2019 10:28:34 09/09/20 19 09/09/2019 CBC w/ auto diff hematocrit 41.2 % 35.0-4 7.0 normal Not Available [facility] [address] [place] [address], [address], 09/09/2019 10:28:34 09/09/20 19 09/09/2019 CBC w/ auto diff MCV 95 fL 80-100 normal Not Available [facility] [address] [place] [address], [address], 09/09/2019 10:28:34 09/09/20 19 09/09/2019 CBC w/ auto diff MCH 33 pg 26-35 normal Not Available [facility] [address] [place] [address], [address], 09/09/2019 10:28:34 09/09/20 19 09/09/2019 CBC w/ auto diff MCHC 34 g/dL 32-36 normal Not Available [facility] [address] [place] [address], [address], 09/09/2019 10:28:34 09/09/20 19 09/09/2019 CBC w/ auto diff RDW 13.8 % 11.0-1 5.0 normal Not Available [facility] [address] [place] [address], [address], 09/09/2019 10:28:34 09/09/20 19 09/09/2019 CBC w/ auto diff MPV 9.2 fL 6.2-10 .5 normal Not Available [facility] [address] [place] [address], [address], 09/09/2019 10:28:34 09/09/20 19 09/09/2019 CBC w/ auto diff platelet count 128 K/uL 130-40 0 low Not Available [facility] [address] [place] [address], [address], 09/09/2019 10:28:34 09/09/20 19 09/09/2019 CBC w/ auto diff neutrophil,a bsolute 4.4 K/uL 1.6-8. 4 normal Not Available [facility] [address] [place] [address], [address], 09/09/2019 10:28:34 09/09/20 19 09/09/2019 CBC w/ auto diff lymphocyte,a bsolute 0.7 K/uL 0.4-5. 1 normal Not Available [facility] [address] [place] [address], [address], 09/09/2019 10:28:34 09/09/20 19 09/09/2019 CBC w/ auto diff monocyte,abs olute 0.5 K/uL 0.0-1. 2 normal Not Available [facility] [address] [place] [address], [address], 09/09/2019 10:28:34 09/09/20 19 09/09/2019 CBC w/ auto diff eosinophil,a bsolute 0.1 K/uL 0.0-0. 8 normal Not Available [facility] [address] [place] [address], [address], 09/09/2019 10:28:34 09/09/20 19 09/09/2019 CBC w/ auto diff basophil,abs olute 0.0 K/uL 0.0-0. 3 normal Not Available [facility] [address] [place] [address], [address], 09/09/2019 10:28:34 09/09/20 19 09/09/2019 CBC w/ auto diff % neutrophils 76.0 % 42.0-7 8.0 normal Not Available [facility] [address] [place] [address], [address], 09/09/2019 10:28:34 09/09/20 19 09/09/2019 CBC w/ auto diff % lymphocytes 12.6 % 11.0-4 7.0 normal Not Available [facility] [address] [place] [address], [address], 09/09/2019 10:28:34 09/09/20 19 09/09/2019 CBC w/ auto diff % monocytes 8.8 % 0.0-11 .0 normal Not Available [facility] [address] [place] [address], [address], 09/09/2019 10:28:34 09/09/20 19 09/09/2019 CBC w/ auto diff % eosinophils 1.9 % 0.0-7. 0 normal Not Available [facility] [address] [place] [address], [address], 09/09/2019 10:28:34 09/09/2009/09/2019 CBC w/ auto diff % basophils 0.7 % 0.0-3. 0 normal Not Available [facility] [address] [place] [address], [address], 09/09/2019 10:28:34 09/09/20 19 09/09/2019 CBC w/ auto diff nucleated red cells 0.0 % 0.0-0. 9 normal Not Available [facility] [address] [place] [address], [address], 09/09/2019 10:28:34 09/09/20 19 09/09/2019 CBC w/ auto diff nucleated RBCs, absolute 0.00 K/uL not estab. normal Not Available [facility] [address] [place], [address], 09/09/2019 10:28:34 09/09/2009/09/2019 ldh, serum or plasm a LDH 248 U/L 135-21 4 high Not Available [facility] [address] [place], [address], 09/09/2019 11:26:41 09/09/2009/09/2019 vitam in B12 + folat e, serum or blood folic acid 18.4 NG/mL 4.8-24 .2 normal Not Available [facility] [address] [place], [address], 09/09/2019 11:43:22 09/09/20 19 09/09/2019 vitam in B12 + folat e, serum or blood vitamin B12 718 pg/mL 232-12 45 normal Not Available [facility] [address] [place], [address], 09/09/2019 11:43:22 09/09/2009/19/2019 JAYDEN (anti nucle ar [...] PERFO RMED AT: [facility] [address] [place] [address] WHIT Carranza MD Not Available [facility] [address] [place] [address], [address], 09/19/2019 16:56:22 04/20/20 20 04/20/2020 CBC w/ auto diff white blood cells 5.9 K/uL 3.8-10 .8 normal Not Available [facility] [address] [place] [address], [address], 04/20/2020 11:52:50 04/20/20 20 04/20/2020 CBC w/ auto diff red blood cells 4.40 M/uL 3.80-5 .20 normal Not Available [facility] [address] [place] [address], [address], 04/20/2020 11:52:50 04/20/2004/20/2020 CBC w/ auto diff hemoglobin 14.5 g/dL 12.0-1 6.0 normal Not Available [facility] [address] [place] [address], [address], 04/20/2020 11:52:50 04/20/2004/20/2020 CBC w/ auto diff hematocrit 42.0 % 35.0-4 7.0 normal Not Available [facility] [address] [place] [address], [address], 04/20/2020 11:52:50 04/20/20 20 04/20/2020 CBC w/ auto diff MCV 96 fL 80-100 normal Not Available [facility] [address] [place] [address], [address], 04/20/2020 11:52:50 04/20/20 20 04/20/2020 CBC w/ auto diff MCH 33 pg 26-35 normal Not Available [facility] [address] [place] [address], [address], 04/20/2020 11:52:50 04/20/20 20 04/20/2020 CBC w/ auto diff MCHC 34 g/dL 32-36 normal Not Available [facility] [address] [place] [address], [address], 04/20/2020 11:52:50 04/20/20 20 04/20/2020 CBC w/ auto diff RDW 13.6 % 11.0-1 5.0 normal Not Available [facility] [address] [place] [address], [address], 04/20/2020 11:52:50 04/20/20 20 04/20/2020 CBC w/ auto diff MPV 9.0 fL 6.2-10 .5 normal Not Available [facility] [address] [place] [address], [address], 04/20/2020 11:52:50 04/20/20 20 04/20/2020 CBC w/ auto diff platelet count 132 K/uL 130-40 0 normal Not Available [facility] [address] [place] [address], [address], 04/20/2020 11:52:50 04/20/20 20 04/20/2020 CBC w/ auto diff neutrophil,a bsolute 3.9 K/uL 1.6-8. 4 normal Not Available [facility] [address] [place] [address], [address], 04/20/2020 11:52:50 04/20/20 20 04/20/2020 CBC w/ auto diff lymphocyte,a bsolute 1.3 K/uL 0.4-5. 1 normal Not Available [facility] [address] [place] [address], [address], 04/20/2020 11:52:50 04/20/20 20 04/20/2020 CBC w/ auto diff monocyte,abs olute 0.6 K/uL 0.0-1. 2 normal Not Available [facility] [address] [place] [address], [address], 04/20/2020 11:52:50 04/20/20 20 04/20/2020 CBC w/ auto diff eosinophil,a bsolute 0.1 K/uL 0.0-0. 8 normal Not Available [facility] [address] [place] [address], [address], 04/20/2020 11:52:50 04/20/20 20 04/20/2020 CBC w/ auto diff basophil,abs olute 0.1 K/uL 0.0-0. 3 normal Not Available [facility] [address] [place] [address], [address], 04/20/2020 11:52:50 04/20/20 20 04/20/2020 CBC w/ auto diff % neutrophils 65.0 % 42.0-7 8.0 normal Not Available [facility] [address] [place] [address], [address], 04/20/2020 11:52:50 04/20/20 20 04/20/2020 CBC w/ auto diff % lymphocytes 21.6 % 11.0-4 7.0 normal Not Available [facility] [address] [place] [address], [address], 04/20/2020 11:52:50 04/20/20 20 04/20/2020 CBC w/ auto diff % monocytes 10.0 % 0.0-11 .0 normal Not Available [facility] [address] [place] [address], [address], 04/20/2020 11:52:50 04/20/20 20 04/20/2020 CBC w/ auto diff % eosinophils 2.5 % 0.0-7. 0 normal Not Available [facility] [address] [place] [address], [address], 04/20/2020 11:52:50 04/20/20 20 04/20/2020 CBC w/ auto diff % basophils 0.9 % 0.0-3. 0 normal Not Available [facility] [address] [place] [address], [address], 04/20/2020 11:52:50 04/20/20 20 04/20/2020 CBC w/ auto diff nucleated red cells 0.1 % 0.0-0. 9 normal Not Available [facility] [address] [place] [address], [address], 04/20/2020 11:52:50 04/20/20 20 04/20/2020 CBC w/ auto diff nucleated RBCs, absolute 0.00 K/uL not estab. normal Not Available [facility] [address] [place] [address], [address], 04/20/2020 11:52:50 04/20/20 20 04/20/2020 CMP, serum or plasm a glucose 109 mg/dL 74-100 high Not Available [facility] [address] [place] [address], [address], 04/20/2020 12:16:18 04/20/20 20 04/20/2020 CMP, serum or plasm a blood urea nitrogen 24 mg/dL 6-20 high Not Available [facility] [address] [place] [address], [address], 04/20/2020 12:16:18 04/20/20 20 04/20/2020 CMP, serum or plasm a creatinine 1.07 mg/dL 0.50-0 .95 high Not Available [facility] [address] [place] [address], [address], 04/20/2020 12:16:18 04/20/20 20 04/20/2020 CMP, serum or plasm a BUN/creatini ne ratio 22 (calc ) 10-20 high Not Available [facility] [address] [place] [address], [address], 04/20/2020 12:16:18 04/20/20 20 04/20/2020 CMP, serum or plasm a sodium 143 mmol/ L 136-14 5 normal Not Available [facility] [address] [place] [address], [address], 04/20/2020 12:16:18 04/20/20 20 04/20/2020 CMP, serum or plasm a potassium 4.3 mmol/ L 3.4-5. 0 normal Not Available [facility] [address] [place] [address], [address], 04/20/2020 12:16:18 04/20/20 20 04/20/2020 CMP, serum or plasm a chloride 107 mmol/ L 98-107 normal Not Available [facility] [address] [place] [address], [address], 04/20/2020 12:16:18 04/20/20 20 04/20/2020 CMP, serum or plasm a carbon dioxide 24 mmol/ L 20-32 normal Not Available [facility] [address] [place] [address], [address], 04/20/2020 12:16:18 04/20/20 20 04/20/2020 CMP, serum or plasm a anion gap 12 (calc ) 7-25 normal Not Available [facility] [address] [place] [address], [address], 04/20/2020 12:16:18 04/20/20 20 04/20/2020 CMP, serum or plasm a calcium 9.7 mg/dL 8.6-10 .2 normal Not Available [facility] [address] [place] [address], [address], 04/20/2020 12:16:18 04/20/20 20 04/20/2020 CMP, serum or plasm a total protein 7.0 g/dL 6.4-8. 3 normal Not Available [facility] [address] [place] [address], [address], 04/20/2020 12:16:18 04/20/20 20 04/20/2020 CMP, serum or plasm a albumin 4.4 g/dL 3.5-5. 2 normal Not Available [facility] [address] [place] [address], [address], 04/20/2020 12:16:18 04/20/20 20 04/20/2020 CMP, serum or plasm a globulin 2.6 g/dL_ (calc ) 1.5-4. 5 normal Not Available [facility] [address] [place] [address], [address], 04/20/2020 12:16:18 04/20/2004/20/2020 CMP, serum or plasm a albumin/glob ulin ratio 1.7 (calc ) 1.1-2. 5 normal Not Available [facility] [address] [place] [address], [address], 04/20/2020 12:16:18 04/20/20 20 04/20/2020 CMP, serum or plasm a bilirubin, total 0.7 mg/dL 0.1-1. 2 normal Not Available [facility] [address] [place] [address], [address], 04/20/2020 12:16:18 04/20/20 20 04/20/2020 CMP, serum or plasm a alkaline phosphatase 71 U/L 35-105 normal Not Available [facility] [address] [place] [address], [address], 04/20/2020 12:16:18 04/20/20 20 04/20/2020 CMP, serum or plasm a AST 26 U/L 0-32 normal Not Available [facility] [address] [place] [address], [address], 04/20/2020 12:16:18 04/20/20 20 04/20/2020 CMP, serum or plasm a ALT 21 U/L 0-33 normal Not Available [facility] [address] [place], [address], 04/20/2020 12:16:18 04/20/20 20 04/20/2020 CMP, serum or plasm a GFR 59 >= 60 abnormal Not Available [facility] [address] [place], [address], 04/20/2020 12:16:18 04/20/20 20 04/20/2020 CMP, serum [...] month s or longe r. Not Available [facility] [address] [place], [address], 04/20/2020 12:16:18 09/11/20 19 09/11/2019 US, abdom en, limit ed Formerly [facility] [address] [place] [id number] Patien t Name: GINA Carranza Patien t [...] Jason Man MD on 2018 9:[email or web address] [place] [address] Radiology [facility] [address] [place], [address], 09/23/2019 15:38:59 Result Notes None recorded. Procedures Surgical History Date Name Laterality Status Provider Name and Address Organization Details Recorded Time CABG completed Salma Billings [facility] 09/09/2019 09:08:09 Cholecystectomy completed Salma Billings [facility] 09/09/2019 09:08:17 [facility] 09:08:34 Back Surgery completed Salmarik Billings [facility] 09/09/2019 09:08:47 wrist repair completed Salma Billings [facility] 09/09/2019 09:09:41 debridement of leg ulcer completed Salma Billings [facility] 09/09/2019 09:10:18 Imaging Results None recorded. Procedure Notes None recorded. Medical Equipment None Reported. Allergies Allergen ID Allergen Name Allergen Category Reaction Reaction Severity Criticality Documentation Date Start Date Code Code System Note Provider Name and Address Organization Details Recorded Time 103554 Motrin medicatio n itching Not available Not available 09/09/201957065 8 [facility] 09:[facility]45 717148 Product containin g penicilli n (product) medicatio n rash Not available Not available 09/09/2019 23121 8001 SNOMED Salma Billings [facility] 9 09:01:54 Medications Name Sig Start Date Stop Date Status Note LastModified by Organization Details LastModified Time Plaquenil 200 mg tablet Take 1 tablet twice a day by oral route. active Not Available Not Available No t Available vitamin U61-iuyulfl B1 1,000 mcg-100 mg/mL injection solution Take [...] Updated DateTime 04/20/2020 98.6 [degF] Norma Salcido [facility] 0 04/20/2020 12:51:11 Date Recorded Body height Body mass index (BMI) Body weight Heart rate Oxygen saturation Oxygen saturation in Arterial blood by Pulse oximetry Systolic And Diastolic Provider Name and Address Organization Details Last Updated DateTime 0 157.48 cm 40.5 kg/m2 804440. 01 g 63 /min 97 % 97 % 130/72 mm[Hg] [facility] 0 13:02:17 Date Recorded Body weight Body mass index (BMI) Body height Heart rate Oxygen saturation Oxygen saturation in Arterial blood by Pulse oximetry Body temperature Systolic And Diastolic Provider Name and Address Organization Details Last Updated DateTime 9 005097. 08 g 41.2 kg/m2 157.48 cm 65 /min 96 % 96 % 98.9 [degF] 122/62 mm[Hg] [facility] 9 09:19:53 Date Recorded Body height Heart rate Body temperature Body mass index (BMI) Body weight Systolic And Diastolic Provider Name and Address Organization Details Last Updated DateTime 9 157.48 cm 68 /min 99.1 [degF] 41.4 kg/m2 678409. 63 g 136/66 mm[Hg] Yessi King [facility] 9 15:09:42 Social History Question Answer Notes LastModified by Organizat ion Details LastModified Time Tobacco Smoking Status Never Smoker Yessi King [facility] 09/23/2019 15:10:42 How Much Tobacco Do You Chew? None Information not available 09/23/2019 Live Alone Or With Others? Alone Information not available 09/23/2019 Exposure To Smoke No Information not available 09/23/2019 Marital Status Informatio n not available 09/23/2019 What Was The Date Of Your Most Recent Tobacco Screening? 09/23/2019 [email or web address] Information not available 09/23/2019 How Many Children Do You Have? 1 Son 23 Years Ago [email or web address] Information not available 09/23/2019 How Much Tobacco Do You Smoke? No Information not available 04/20/2020 On What Date Was Tobacco Cessation Counseling Provided? 09/23/2019 [email or web address] Information not available 09/23/2019 How Many Years Have You Smoked Tobacco? 0 Information not available 04/20/2020 Sex: Female Functional Status Question Answer Note LastModified by Coubic ion Details LastModified Time What is your level of alcohol consumption? None [email or web address] Information not available 09/23/2019 Do you or have you ever used smokeless tobacco? Never used smokeless tobacco [email or web address] Information not available 09/23/2019 What is your occupation? Retired [email or web address] Information not available 09/23/2019 Do you or have you ever used e-cigarettes or vape? Never used electronic cigarettes [email or web address] Information not available 09/23/2019 Mental Status None [...] 09:10:42 Medical History Condition Response Heart Attack ([place]) Y Heart Disease Y Arthritis Y Depression Y Gynecological HistoryNo gynecological history recorded. Obstetrics History GPAL:G 0 P 0 0 0 0 Past Encounters Encounter ID Performer Location Encounter Start Date Encounter Closed Date Diagnosis/Indication Diagnosis SNOMED-CT Code Diagnosis ICD10 Code Diagnosis IMO Codes Diagnosis Note [id number] JASON WEISS MD CARDIOLOG Y [place] [address] [place] [address] 04/03/2017 13:10:27 04/03/2017 13:49:50 [id number] JASON WEISS MD CARDIOLOG Y [place] [address] [place] [address] 09/25/2017 12:53:34 09/25/2017 14:36:54 [id number] JASON WEISS MD CARDIOLOG Y [address] [place] [id number] 04/02/2018 09:28:26 04/02/2018 11:01:03 [id number] JASON WEISS MD CARDIOLOG Y [address] [place], [place] [address] 10/22/2018 13:48:50 10/22/2018 15:10:00 [id number] JASON WEISS MD CARDIOLOG Y [place] [address] [place] [address] 02/07/2019 11:09:23 02/07/2019 13:35:19 [id number] JASON WEISS MD CARDIOLOG Y [address] [place], [place] [address] 05/08/2019 13:19:05 05/08/2019 13:58:46 [id number] FROILAN BAGLEY MD HEM/ONC [place] [facility] [address] [place] [id number] 09/09/2019 08:55:56 09/09/2019 09:56:44 Rheumatoid arthritis 95113843 M06.[address] Tom. Pt is on plaquenil and cevimeline . Gout 40120045 M10.9 Pt has begun colchicine . Body mass index 30+ - obesity 062290919 Z68.41 Encourage exercise and weight loss. Leukopenia 80660352 D72. 819 Differenti al includes for this and thrombocyt openia include vitamin deficiency , Felty's syndrome as well as LGL. Also, worrisome for another autoimmune such s lupus. Medication effect including colchicine and plaquenil. We will obtain here flow cytometry, CBC, LDH, JAYDEN, splenic US, B12/folate . Thrombocyt openic disorder 958015618 D69.6 As above. [id number] FROILAN BAGLEY MD HEM/ONC [place] [facility] [address] [place] [id number] 09/23/2019 14:46:58 09/23/2019 15:53:02 Leukopenia 26413506 D72.819 Differenti al includes for this and [...] dilatation most likely secondary to cholecyste ctomy. [id number] JASON WEISS MD CARDIOLOG Y [place] [address] [place], [place] [address] 10/24/2019 12:38:41 10/24/2019 13:57:59 [id number] FROILAN BAGLEY MD HEM/ONC [place] [facility] [address] [facility] [address] [place] [address] 04/20/2020 12:49:16 04/20/2020 13:27:21 Leukopenia 73725066 D72.819 Labs today are normal. This has [...] dilatation most likely secondary to cholecyste ctomy. [id number] JASON WEISS MD CARDIOLOG Y [place] [address] [place] [id number] 05/04/2020 13:42:38 05/04/2020 14:45:16 [id number] JASON WEISS MD CARDIOLOG Y [address] [place], [place] [address] 11/23/2020 14:04:41 11/23/2020 15:54:54 [id number] JASON WEISS MD CARDIOLOG Y [address] [place] [id number] 04/22/2021 10:16:00 04/22/2021 10:42:04 [id number] YELENA GARCIA PA-C CARDIOLOG Y [address] 5 10/20/2021 13:30:08 10/20/2021 15:19:47 [id number] YELENA GARCIA PA-C CARDIOLOG Y [address] ,[address] [place] [address] 5 04/25/2022 13:10:58 04/25/2022 14:17:13 [id number] YELENA GARCIA PA-C CARDIOLOG Y [address] ,[address] [place] [address] 5 10/25/2022 13:07:16 10/25/2022 14:19:06 [id number] MIGUEL SALAZAR MD CARDIOLOG Y [place] [address] [place] [address] 1 04/19/2023 08:57:28 04/19/2023 12:59:26 [id number] MIGUEL SALAZAR MD CARDIOLOG Y [place] [address] [place] [address] 1 10/23/2023 13:19:59 10/23/2023 15:24:43 [id number] MIGUEL SALAZAR MD CARDIOLOG Y SB [address] [place] [address] 1 02/28/2024 14:13:45 02/28/2024 15:43:14 [id number] MIGUEL SALAZAR MD CARDIOLOG Y SB [address] [place] [address] 1 04/24/2024 13:47:52 05/02/2024 11:17:54 [id number] MIGUEL SALAZAR MD CARDIOLOG Y SB [address] [place] [address] 1 10/29/2024 12:55:01 10/29/2024 14:32:18 [id number] MIGUEL SALAZAR MD CARDIOLOG Y SB [address] [place] [address] 1 07/23/2025 15:25:48 08/01/2025 01:15:53 Health Concerns Section Related Observation LastModified by Organization Detai ls LastModified Time None Recorded Concern Status LastModified by Organization Details LastModified Time None Recorded Advance Directives Directive None Recorded Payers Insurance Date Sequence Insurance Name Policy Number Policy Gaines Covered Member ID Gaines Member ID Guarantor Name 08/01/2025 2 [place] [id number] Gina Hector [id number] Gina Hector 07/20/2025 1 [place] Gina Hector [id number] Gina Hector 10/07/2020 2 [place] [id number] Gina Hector [id number] Gina Hector Notes Date Note Type [...] family problems, patient reportsno family problems. For spiritual/catholic, patient reportsspiritual/relig ious problems? no. For physical [...] per intake note. FROILAN BAGLEY MD [address] [place], [address], [facility] 09/09/2019 09:47:03 09/23/2019 text/html HPIReported b y PatientDistress ScreeningFor practical problems, patient reportshousing stress,financial/insur ance stress, andtransportation stress. For family problems, patient reportsfamily health issue. For emotional problems, patient reportsdepression,nerv ousness, andworry. For physical problems, patient reportsdiarrhea,eating /ingestion problem, andfatigue. For distress screening, patient reportshas the distress screening been completed in the last 45 days? yesanddistress level 3. For spiritual/catholic, patient reportsspiritual/relig ious problems? no.NutritionFor nutrition screening, [...] polyps, diverticulosis per pt. FROILAN BAGLEY MD [address] [place] [address], [phone], [facility] 09/23/2019 15:46:20 04/20/2020 text/html HPIReported b y [...] family problems, patient reportsno family problems. For spiritual/catholic, patient reportsspiritual/relig ious problems? no.NutritionFor nutrition screening, [...] care of Dr. Perez. FROILAN BAGLEY MD [address] [place] [address], [phone], [facility] hospital 04/20/2020 13:19:58 OBGyn Episode No OBEpisode recorded.
[2025-09-12 10:58] VITALS: PULSE 61
[2025-09-12 10:59] LABS: Hematocrit 36.7 % (37.0-47.0); Hemoglobin 12.5 g/dL (12.2-16.2); Immature Granulocytes % 0.2 %; Mean Corpuscular HGB Conc 34.1 g/dL (31.8-35.4); Mean Corpuscular Hemoglobin 33.9 pg (27.0-31.2); Mean Corpuscular Volume 99.5 fl (81-99); Nucleated Red Blood Cells % 0 %; Platelet Count 122 K/mm3 (142-424); Red Blood Count 3.69 M/mm3 (4.20-5.40); Red Cell Distribution Width-SD 46.7 fL; White Blood Count 4.9 K/mm3 (4.8-10.8)
[2025-09-12 11:06] LABS: Alanine Aminotransferase 34 U/L (12-78); Albumin Level 3.6 g/dl (3.5-5.0); Albumin/Globulin Ratio 1.1 (1.1-1.8); Alkaline Phosphatase 81 U/L (38-126); Anion Gap 12.8 mEq/L (5-15); Aspartate Amino Transferase 41 U/L (14-36); Bilirubin,Total 1.7 mg/dl (0.2-1.3); Blood Urea Nitrogen 24 mg/dl (7-17); Calcium 9.4 mg/dl (8.4-10.2); Carbon Dioxide 24 mmol/L (22.0-30.0); Chloride 103 mmol/L (98-107); Creatinine Clearance Estimated 46 mL/min (50-200); Creatinine,Serum 1.20 mg/dl (0.52-1.04); Estimated Glomerular Filt Rate 43 ml/min (>60); GFR (African American) 52 ML/MIN (>60); Globulin 3.4 g/dL (1.3-3.2); Glucose 100 mg/dl (74-100); Potassium 3.8 mmoL/L (3.5-5.1); Sodium 136 mmol/L (136-145); Total Protein,Serum 7.0 g/dl (6.3-8.2)
[2025-09-12 11:09] LABS: Activated Partial Thrombo Time 23.4 seconds (22.8-30.6); INR 1.06 (0.9-1.1); Prothrombin Time 11.7 seconds (10.1-12.5)
--- NOTE | 2025-09-12 11:13 | PC.NURSE ---
portable xray at bedside
[2025-09-12 11:18] LABS: NT Pro Brain Natriuretic Pep. 697 pg/mL (0-450); Troponin I 0.02 ng/ml (0.00-0.034)
[2025-09-12 12:00] VITALS: BP 118/55; PULSE 57; RESP 16; O2SAT 98
[2025-09-12 12:31] VITALS: BP 131/59; PULSE 44; RESP 19; O2SAT 100
[2025-09-12 13:00] VITALS: BP 125/67; PULSE 55; RESP 20; O2SAT 99
[2025-09-12 13:15] LABS: Troponin I 0.02 ng/ml (0.00-0.034)
[2025-09-12 13:40] VITALS: BP 113/56; PULSE 59; RESP 16; TEMP 36.6; O2SAT 96
== END 2025-09-12 13:42 | disposition home or self-care (01) ==
PROVIDERS: Emergency Provider Student in an Organized Health Care Education/Training Program; PCP Internal Medicine Adolescent Medicine
DX: R07.9 Chest pain, unspecified (principal); I10 Essential (primary) hypertension; Z86.79 Personal history of other diseases of the circulatory system; Z95.1 Presence of aortocoronary bypass graft
CPT/HCPCS: 71045; 80053; 83880; 84484; 85025; 85610; 85730; 93005; 99284